=== PATIENT | male | born 1995 | race Caucasian/White ===

== ENCOUNTER 2018-03-16 21:03 | Emergency (ER) | payer MEDICAID, SELFPAY ==
[2018-03-16 21:04] VITALS: BP 112/59; PULSE 91; RESP 16; TEMP 36.4; O2SAT 97; BMI 19.2
[2018-03-16 22:00] VITALS: O2SAT 99
--- NOTE | 2018-03-16 22:20 | ED.VISSUMM ---
- ER Visit Summary Date of Service: 03/16/18 Chief Complaint: Asthma History of Present Illness: The patient is a 22 M with history of asthma who presents for 2 days of worsening asthma symptoms and a sharp left-sided pleuritic chest pain. Patient states he is on Asmanex which is been helping him and uses nebulizer albuterol treatment at home as needed, which she states has not been helping for the last 2 days. He is complaining of a left lateral lower sharp chest pain along with his asthma symptoms. He has mild cough, nonproductive, and wheezing. Denies fever, abdominal pain, nausea or vomiting, rash or other complaints. No history other than asthma. Physical Examination: Vital signs: afebrile, hemodynamically stable, no hypoxia on room air General: well nourished, well developed, in no distress Skin: warm, dry, no rash, no pallor HEENT: normocephalic and atraumatic; PERRL, EOMI, moist mucous membranes Cardiovascular: regular rate and rhythm without murmurs, no peripheral edema, 2+ pulses all distal extremities Respiratory: No increased work of breathing, lungs are clear to auscultation bilaterally, no rales, rhonchi or wheezing appreciated, dry cough noted Abdominal: Abdomen is soft, nontender with normoactive bowel sounds, no guarding or rebound, no masses MSK: Moves all extremities, no deformities, normal strength Neuro: Awake and alert, oriented ?4. No facial droop, sensation and motor function intact and symmetric Test Results: Clinical Impression(s) from Imaging Studies Chest X-Ray 03/16/18 22:40 IMPRESSION: Normal x-ray examination of the chest. Electronically Signed: Kevin Jimenez MD at 23:07 EDT , Service support , Emergency Department Course and Treatment: Patient's lung exam was unimpressive, however he had a dry cough, which may be his asthma equivalent. He was given 1 DuoNeb and stated he felt much better and like he was moving air better. Given that he was complaining of the new pleuritic chest pain, a chest x-ray was performed to rule out pneumonia. It was unremarkable. Patient is to follow-up with his primary care doctor or his behavioral intervention specialist to discuss the functioning of his nebulizer and whether he needs a new one or different treatment system. He agreed with this plan was discharged home feeling much better with his symptoms resolved. Treatment Plan: [] Disposition: [] Impression: Mild asthma exacerbation This note was generated with [employer] dictation software. It may contain incorrect words, spelling, and punctuation that were not noted in review of the chart prior to signing ED Disposition - Plan for ED Patient: Disposition: Home or Assisted Living Chief Complaint: Asthma Instructions: ED Reactive Airway Disease Referrals: Kevin Carcamo MD [Primary Care Provider] - 3-5 Days Additional Instructions: Please continue your asthma treatments as instructed by your doctors. Follow-up with either your primary care doctor or your behavioral intervention specialist to discuss getting a prescription for a new nebulizer machine if you have concerns for the functioning of your current one. If you have any worsening of your condition or any new concerning symptoms, please return immediately to the emergency department for another evaluation.
--- NOTE | 2018-03-16 22:40 | RAD_ITS ---
STUDY: X-RAY CHEST REASON FOR EXAM: Male, 22 years old. Asthma TECHNIQUE: PA and lateral COMPARISON: February 19, 2017 FINDINGS: The lungs are clear and expanded. There is no demonstrated pleural abnormality. Normal size heart. Normal mediastinum and bailee. Normal visualized pulmonary arteries. Normal visualized aortic arch and descending thoracic aorta. Normal visualized thoracic spine. Normal visualized ribs, clavicles, and shoulders. There is no demonstrated abnormality of the visualized soft tissue structures of the upper abdomen. No significant change since prior study RAD/Chest PA and Lateral IMPRESSION: Normal x-ray examination of the chest. Electronically Signed: Kevin Jimenez MD at 23:07 EDT , Service support ,
[2018-03-16] MEDS: Ipratropium/Albuterol Sulfate 3 ML AMPUL.NEB INHALATION (23:07)
[2018-03-16 23:08] VITALS: PULSE 88; RESP 18
--- NOTE | 2018-03-16 23:14 | ED.DEP ---
ED Disposition - Plan for ED Patient: Disposition: Home or Assisted Living Chief Complaint: Asthma Instructions: ED Reactive Airway Disease Referrals: Kevin Carcamo MD [Primary Care Provider] - 3-5 Days Additional Instructions: Please continue your asthma treatments as instructed by your doctors. 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 If you have any worsening of your condition or any new concerning symptoms, please return immediately to the emergency department for another evaluation.
[2018-03-16 23:33] VITALS: BP 99/61; PULSE 69; RESP 18; O2SAT 99
== END 2018-03-16 23:34 | disposition home or self-care (01) ==
PROVIDERS: Emergency Provider Emergency Medicine; Family Provider Family Medicine; PCP Family Medicine
DX: J45.901 Unspecified asthma with (acute) exacerbation (principal); R07.81 Pleurodynia; Z72.0 Tobacco use
CPT/HCPCS: 71046; 94640; 99282

== ENCOUNTER 2018-03-23 23:03 | Emergency (ER) | payer SELFPAY ==
[2018-03-23 23:03] VITALS: BP 140/72; PULSE 86; RESP 16; TEMP 36.8; O2SAT 97; BMI 18.9
--- NOTE | 2018-03-23 23:15 | RAD_ITS ---
STUDY: X-RAY CHEST REASON FOR EXAM: Male, 22 years old. Shortness of breath. Asthma. TECHNIQUE: Single AP portable view of the chest. COMPARISON: March 16, 2018 FINDINGS: The lungs are clear and expanded. There is no demonstrated pleural abnormality. Normal size heart. Normal mediastinum and bailee. Normal visualized pulmonary arteries. Normal visualized aortic arch and descending thoracic aorta. Normal visualized thoracic spine. Normal visualized ribs, clavicles, and shoulders. There is no demonstrated abnormality of the visualized soft tissue structures of the upper abdomen. RAD/Chest 1 View (Portable) IMPRESSION: Normal x-ray examination of the chest. Electronically Signed: Chung Cline MD at 0:45 EDT , Service support ,
--- NOTE | 2018-03-23 23:18 | ED.DCSUM_ITS ---
- ER Visit Summary Date of Service: 03/23/18 Chief Complaint: Shortness of breath History of Present Illness: The patient is a 22 M presenting with shortness of breath times 1 month. Patient states that around Mother's Day he began having trouble with his breathing. He states his nebulizer is broken. He has been using his inhaler. He has an appointment with his primary care physician tomorrow but felt that he should come in tonight to the ED for a breathing treatment. He denies fever. Denies productive cough. He has not had any past hospitalizations for his asthma. No recent steroids. No PE/DVT risk factors. Physical Examination: Vitals are stable. Patient is afebrile. Alert no acute distress. HEENT exam is unremarkable. Neck is supple. Lungs are mild expiratory wheezing bilaterally. Heart is regular rate and rhythm. Abdomen is soft nontender nondistended. Extremities are unremarkable. Skin is warm and dry. No focal neurologic deficit. Remainder of exam is unremarkable. Emergency Department Course and Treatment: Patient is given DuoNeb. Chest x- ray was obtained and shows no acute process. Patient is feeling improved in the emergency department. He has an appointment with his primary care physician tomorrow. He has an inhaler available to him at home. He is advised to return to ED if worsening complaints. Disposition: Discharge home Impression: Asthma This note was generated with [employer] dictation software. It may contain incorrect words, spelling, and punctuation that were not noted in review of the chart prior to signing ED Disposition - Plan for ED Patient: Disposition: Home or Assisted Living Chief Complaint: Asthma Instructions: Understanding Asthma Referrals: Kevin Carcamo MD [Primary Care Provider] -
[2018-03-24] MEDS: Ipratropium/Albuterol Sulfate 3 ML AMPUL.NEB INHALATION (00:06)
--- NOTE | 2018-03-24 01:15 | ED.DEP ---
ED Disposition - Plan for ED Patient: Chief Complaint: Asthma Instructions: Understanding Asthma Referrals: Kevin Carcamo MD [Primary Care Provider] -
--- NOTE | 2018-03-24 10:20 | CM.ED ---
ED CALLBACK: Follow-up call placed to patient. Voicemail left with return contact information. Noted that patient has a previously scheduled appointment with his PCP today.
== END 2018-03-24 01:17 | disposition home or self-care (01) ==
LOC: ED 23:23
PROVIDERS: Emergency Provider Emergency Medicine; Family Provider Family Medicine; PCP Family Medicine
DX: J45.909 Unspecified asthma, uncomplicated (principal); Z72.0 Tobacco use
CPT/HCPCS: 71045; 99282

== ENCOUNTER 2018-05-28 23:06 | Emergency (ER) | payer MEDICAID, SELFPAY ==
[2018-05-28 23:06] VITALS: BP 130/69; PULSE 94; RESP 16; TEMP 36.8; O2SAT 98; BMI 18.5
[2018-05-28] MEDS: Ondansetron 4 MG/2 ML Vial IV (23:42)
[2018-05-28] MEDS: 0.9% Normal Saline 1,000 ML 1000 ML IV (23:42)
[2018-05-28] MEDS: Mag Hydrox/Al Hydrox/Simeth 30 ML UDC PO (23:46)
[2018-05-28 23:50] LABS: Absolute Lymphocyte Count 3.53 X10^3/ul (0.83-4.51); Absolute Neutrophil Count 4.3 X10^3/uL (2.0-7.7); Basophil# 0.02 X10^3/uL; Basophil% 0.2 % (0-1); Eosinophil# 0.04 X10^3/uL; Eosinophils% 0.5 % (0-5); Hemoglobin 15.3 g/dl (13.0-16.5); Lymphocyte # 3.53 X10^3/ul (4.0); Lymphocyte % 41.1 % (19-41); Mean Corpuscular Volume 94.1 fL (80-94); Mean Platelet Vol. 9.8 fl (6.2-12.0); Monocyte# 0.65 X10^3/uL; Monocyte% 7.6 % (0-10); Neutrophil # 4.34 X10^3/uL (2.7-7.7); Neutrophil % 50.6 % (47-70); Platelet Count 192 K/mm3 (150-450); RBC Distribution Width CV 12.6 % (11.6-14.6); RBC Distribution Width SD 43.4 fl (35.1-43.9); Red Blood Count 4.78 M/mm3 (4.6-6.2); White Blood Count 8.6 K/mm3 (4.4-11.0)
[2018-05-28 23:52] LABS: POSITIVE COUNT NO; POSITIVE DIFFERENTIAL NO; POSITIVE MORPHOLOGY NO
[2018-05-29 00:12] LABS: ALB/GLOB Ratio 1.1 RATIO (0.9-2.4); AST(SGOT) 20 U/L (15-37); Alanine Aminotransfer ALT/SGPT 22 U/L (16-61); Albumin, Serum 4.2 g/dL (3.2-5.0); Alkaline Phosphatase 75 U/L (45-117); Anion Gap 10 (5-15); BUN 11 mg/dL (7-18); Chloride 106 mmol/L (98-107); Creatinine, Serum 0.92 mg/dL (0.70-1.30); EST Glomerular Filtration Rate 108 mL/min (>60); Est Glom Filt Rate - Afr Amer 131 mL/min (>60); Estimated Creatinine Clearance 87.27 ml/min; Globulin 3.7 g/dL (2.2-4.2); Glucose 94 mg/dL (74-106); Lipase 94 U/L (73-393); Potassium 3.2 mmol/L (3.5-5.1); Protein, Total 7.9 g/dL (6.4-8.2); Sodium Level 142 mmol/L (136-145)
--- NOTE | 2018-05-29 00:20 | ED.VISSUMM ---
- ER Visit Summary Date of Service: 05/29/18 Chief Complaint: Pain History of Present Illness: The patient is a 22 M with abdominal and chest pain. The pain started yesterday. He drank 2-1/2 tall boys. He had 3 episodes of nonbloody vomiting. He has stopped vomiting but continues to have some substernal pain as well as epigastric pain. Normal bowel movement. No blood or black or tarry stools. No history of esophageal disease or rupture. No history of ulcers or gastric disease. No history of liver or pancreas disease. No fevers. No shortness of breath. No cough. Patient does report feeling paranoid. When I asked him what this means, he says that he is worried that he is having a medical problem and that something might be wrong. He is not feeling like someone is out to get him or to cause harm to him. Physical Examination: Afebrile and vital signs unremarkable. Patient is nontoxic and in no acute distress. Airway intact. HEENT exam unremarkable. Chest nontender. Lungs clear bilaterally. Heart regular rate and rhythm. Negative Jacobs's crunch. Abdomen slightly tender in the right upper quadrant. No guarding or rebound. Skin normal in color without jaundice or pallor. Test Results: EKG showed sinus rhythm at a rate of 83. No sign of acute ischemia or infarction pattern. CBC normal. CMP unremarkable except for a potassium 3.2. Lipase normal. Troponin normal. Chest x-ray normal. Emergency Department Course and Treatment: Patient treated with fluids, Zofran, GI cocktail while awaiting results. Vitals, exam, symptoms remained stable. Patient history, vitals, exam, and workup are reassuring. I do not believe he has esophageal rupture, mediastinitis, cardiac disease, pneumonia, perforated ulcer, hepatitis, pancreatitis, alcoholic ketoacidosis or any other acute or emergent process. Patient likely has irritation, possibly reflux and/or gastritis secondary to alcohol use and tobacco use. I educated him about this. I also discussed complications and reasons to return to the emergency department. I notified him about his potassium of 3.2. This is likely related to vomiting. He will eat a healthy diet. Follow-up with his doctor for recheck of his labs. Return for any new or worsening issues. I did prescribe a course of Pepcid. Treatment Plan: As above Disposition: Discharged Impression: 1. Abdominal pain This note was generated with [employer] dictation software. It may contain incorrect words, spelling, and punctuation that were not noted in review of the chart prior to signing ED Disposition - Plan for ED Patient: Chief Complaint: Chest Other Referrals: Kevin Carcamo MD [Primary Care Provider] -
--- NOTE | 2018-05-29 00:25 | ED.DEP ---
ED Disposition - Plan for ED Patient: Chief Complaint: Chest Other Instructions: Abdominal Pain Prescriptions: Famotidine [Pepcid] 20 mg PO BID #28 tab Referrals: Kevin Carcamo MD [Primary Care Provider] -
[2018-05-29 00:47] VITALS: BP 118/76; PULSE 78; RESP 16; O2SAT 98
== END 2018-05-29 00:48 | disposition home or self-care (01) ==
PROVIDERS: Emergency Provider Emergency Medicine; Family Provider Family Medicine; PCP Family Medicine
DX: R10.13 Epigastric pain (principal); R07.9 Chest pain, unspecified; R11.2 Nausea with vomiting, unspecified; J45.909 Unspecified asthma, uncomplicated; F31.9 Bipolar disorder, unspecified; Z72.0 Tobacco use
CPT/HCPCS: 71045; 80053; 83690; 84484; 85025; 93005; 96361; 96374; 99285; J7030; J2405

== ENCOUNTER 2018-07-12 23:30 | Emergency (ER) | payer MEDICAID, SELFPAY ==
[2018-07-12 23:31] VITALS: BP 113/83; PULSE 101; RESP 16; TEMP 36.7; O2SAT 99; BMI 18.3
[2018-07-13] VITALS: O2SAT 100
--- NOTE | 2018-07-13 01:27 | ED.VISSUMM ---
- ER Visit Summary Date of Service: 07/13/18 Chief Complaint: Dyspnea, wheeze History of Present Illness: The patient is a 23 M 3-day history nonproductive cough with wheezing. History of asthma. Occasional tobacco. Sick contacts at home. No recent travel, surgeries, or immobilizations. No history of PE or DVT. Does have an inhaler at home which helps his symptoms. Nebulizer broken. No fever, sweats. Physical Examination: General: Alert and oriented ?3, no acute distress HEENT: Normocephalic, atraumatic. Moist mucosa membranes Neck: supple, nontender. Cardiovascular: Regular rate 84 and rhythm, no murmurs Respiratory: Normal breath sounds, symmetric, no distress Abdomen: Soft, nontender, nondistended Extremities: Nontender, no edema, pulses intact ?4 Neuro: no focal neurological deficits. Test Results: [] Emergency Department Course and Treatment: Patient no distress. Reported wheezing at home is helping with inhaler. Vitals stable in the ED. Asthma history we will start prednisone for concerns or exacerbation. Discussed upper respiratory illness. Follow-up with PCP. Signs and symptoms discussed return. Treatment Plan: [] Disposition: Discharge Impression: 1. Asthma exacerbation 2. Upper respiratory infection This note was generated with [employer] dictation software. It may contain incorrect words, spelling, and punctuation that were not noted in review of the chart prior to signing ED Disposition - Plan for ED Patient: Disposition: Home or Assisted Living Chief Complaint: Shortness of Breath Diagnosis: Asthma exacerbation, Viral upper respiratory infection Instructions: ED Upper Resp Infec No Abx Tx, Controlling Asthma Triggers: Irritants Prescriptions: Albuterol Sulfate [Proventil Hfa] 6.7 gm IH Q4H PRN PRN #1 [id number] PRN Reason: Wheezing Prednisone 40 mg PO DAILY #8 tablet Referrals: Kevin Carcamo MD [Primary Care Provider] - 3-5 Days
[2018-07-13] MEDS: predniSONE 20 MG Tablet 40 MG PO (01:55)
[2018-07-13 01:56] VITALS: BP 116/68; PULSE 74; RESP 16; O2SAT 100
== END 2018-07-13 01:56 | disposition home or self-care (01) ==
PROVIDERS: Emergency Provider Emergency Medicine; Family Provider Family Medicine; PCP Family Medicine
DX: J45.901 Unspecified asthma with (acute) exacerbation (principal); J06.9 Acute upper respiratory infection, unspecified; Z72.0 Tobacco use; Z79.899 Other long term (current) drug therapy
CPT/HCPCS: 99283

== ENCOUNTER 2018-11-24 17:18 | Emergency (ER) | payer MEDICAID, SELFPAY ==
[2018-11-24 17:18] VITALS: BP 109/68; PULSE 96; RESP 18; TEMP 37.5; O2SAT 99; BMI 16.5
[2018-11-24 19:00] VITALS: PULSE 95; RESP 18; TEMP 37.5; O2SAT 96
[2018-11-24] MEDS: Ipratropium/Albuterol Sulfate 3 ML AMPUL.NEB INHALATION (19:34)
[2018-11-24 19:35] VITALS: PULSE 84; RESP 16
--- NOTE | 2018-11-24 19:45 | RAD_ITS ---
STUDY: X-RAY CHEST REASON FOR EXAM: Male, 23 years old. Shortness of breath TECHNIQUE: PA and lateral COMPARISON: May 28, 2018 FINDINGS: The lungs are clear and expanded. There is no demonstrated pleural abnormality. Normal size heart. Normal mediastinum and bailee. Normal visualized pulmonary arteries. Normal visualized aortic arch and descending thoracic aorta. Normal visualized thoracic spine. Normal visualized ribs, clavicles, and shoulders. There is no demonstrated abnormality of the visualized soft tissue structures of the upper abdomen. No significant change since prior exam RAD/Chest PA and Lateral IMPRESSION: Normal x-ray examination of the chest. Electronically Signed: Kevin Jimenez MD at 20:02 EST , Service support ,
[2018-11-24 19:58] LABS: Absolute Lymphocyte Count 2.95 X10^3/ul (0.83-4.51); Absolute Neutrophil Count 1.9 X10^3/uL (2.0-7.7); Basophil# 0.02 X10^3/uL; Basophil% 0.4 % (0-1); Eosinophil# 0.05 X10^3/uL; Eosinophils% 0.9 % (0-5); Hematocrit 49.1 % (40-54); Hemoglobin 16.7 g/dl (13.0-16.5); Lymphocyte # 2.95 X10^3/ul (4.0); Lymphocyte % 55.6 % (19-41); Mean Corpuscular Hgb 31.7 pg (27.0-32.0); Mean Corpuscular Volume 93.3 fL (80-94); Mean Platelet Vol. 9.7 fl (6.2-12.0); Monocyte# 0.35 X10^3/uL; Monocyte% 6.6 % (0-10); Neutrophil # 1.93 X10^3/uL (2.7-7.7); Neutrophil % 36.3 % (47-70); Platelet Count 182 K/mm3 (150-450); RBC Distribution Width CV 12.4 % (11.6-14.6); RBC Distribution Width SD 41.5 fl (35.1-43.9); Red Blood Count 5.26 M/mm3 (4.6-6.2); White Blood Count 5.3 K/mm3 (4.4-11.0)
[2018-11-24 19:59] LABS: POSITIVE COUNT NO; POSITIVE DIFFERENTIAL NO; POSITIVE MORPHOLOGY NO
[2018-11-24 20:08] LABS: ALB/GLOB Ratio 1.2 RATIO (0.9-2.4); AST(SGOT) 16 U/L (15-37); Alanine Aminotransfer ALT/SGPT 18 U/L (16-61); Albumin, Serum 4.6 g/dL (3.2-5.0); Alkaline Phosphatase 84 U/L (45-117); Anion Gap 6 (5-15); BUN 7 mg/dL (7-18); BUN/Creat Ratio 7.8 RATIO (10-20); Calcium,Total 9.3 mg/dL (8.5-10.1); Chloride 104 mmol/L (98-107); EST Glomerular Filtration Rate 111 mL/min (>60); Est Glom Filt Rate - Afr Amer 135 mL/min (>60); Estimated Creatinine Clearance 83.54 ml/min; Globulin 3.9 g/dL (2.2-4.2); Glucose 92 mg/dL (74-106); Potassium 3.9 mmol/L (3.5-5.1); Protein, Total 8.5 g/dL (6.4-8.2); Sodium Level 137 mmol/L (136-145)
--- NOTE | 2018-11-24 21:24 | ED.VISSUMM ---
- ER Visit Summary Date of Service: 11/24/18 Chief Complaint: Asthma exacerbation History of Present Illness: The patient is a 23 M who presents with exacerbation of his asthma that began 6 days ago and is gradually gotten worse. Patient describes it as a tightness in his chest. Patient states he is having a cough but denies any sputum production. Patient states he is also had a 13 pound weight loss over the past 3 weeks. Patient denies any fevers or chills. Patient denies any chest pain. Patient denies any nausea or vomiting. Patient denies any diaphoresis. Patient denies any other past medical history. Physical Examination: Vital signs are stable. Patient is afebrile. Patient is in no acute distress. Oral mucosa is pink and moist. Neck is supple. Trachea is midline. There is no JVD or lymphadenopathy noted. Heart was regular rate and rhythm. Lungs showed expiratory wheezing. There is good respiratory effort noted. Abdomen is soft nontender. Cranial nerves II through XII are intact. There are no focal motor or sensory deficits noted. The remaining physical exam is within normal limits. Test Results: PA and lateral chest x-ray was obtained. There is no acute cardiopulmonary process noted. CBC and comprehensive metabolic profile were obtained and were all normal. Emergency Department Course and Treatment: Patient was given a DuoNeb aerosol here. Patient felt better on reevaluation. Patient was given a prescription for albuterol nebulizer solution. Patient was instructed to follow-up with his primary care physician in 7-10 days. Patient and family understood and were agreeable with the plan. All questions were answered. Disposition: Discharge home Impression: Asthma exacerbation This note was generated with [employer] dictation software. It may contain incorrect words, spelling, and punctuation that were not noted in review of the chart prior to signing ED Disposition - Plan for ED Patient: Disposition: Home or Assisted Living Diagnosis: Asthma exacerbation Instructions: ED Reactive Airway Disease Prescriptions: Albuterol Aerosols [Ventolin Aerosols] 2.5 mg INHALATION Q4H PRN PRN #25 vial PRN Reason: Wheezing Referrals: Kevin Carcamo MD [Primary Care Provider] -
--- NOTE | 2018-11-24 21:29 | ED.DCSUM_ITS ---
- ER Visit Summary Date of Service: 11/24/18 Chief Complaint: Asthma exacerbation History of Present Illness: The patient is a 23 M who presents with exacerbation of his asthma that began 6 days ago and is gradually gotten worse. Patient describes it as a tightness in his chest. Patient states he is having a cough but denies any sputum production. Patient states he is also had a 13 pound weight loss over the past 3 weeks. Patient denies any fevers or chills. Patient denies any chest pain. Patient denies any nausea or vomiting. Patient denies any diaphoresis. Patient denies any other past medical history. Physical Examination: Vital signs are stable. Patient is afebrile. Patient is in no acute distress. Oral mucosa is pink and moist. Neck is supple. Trachea is midline. There is no JVD or lymphadenopathy noted. Heart was regular rate and rhythm. Lungs showed expiratory wheezing. There is good respiratory effort noted. Abdomen is soft nontender. Cranial nerves II through XII are intact. There are no focal motor or sensory deficits noted. The remaining physical exam is within normal limits. Test Results: PA and lateral chest x-ray was obtained. There is no acute cardiopulmonary process noted. CBC and comprehensive metabolic profile were obtained and were all normal. Emergency Department Course and Treatment: Patient was given a DuoNeb aerosol here. Patient felt better on reevaluation. Patient was given a prescription for albuterol nebulizer solution. Patient was instructed to follow-up with his primary care physician in 7-10 days. Patient and family understood and were ag reeable with the plan. All questions were answered. Disposition: Discharge home Impression: Asthma exacerbation This note was generated with [employer] dictation software. It may contain incorrect words, spelling, and punctuation that were not noted in review of the chart prior to signing ED Disposition - Plan for ED Patient: Disposition: Home or Assisted Living Diagnosis: Asthma exacerbation Instructions: ED Reactive Airway Disease Prescriptions: Albuterol Aerosols [Ventolin Aerosols] 2.5 mg INHALATION Q4H PRN PRN #25 vial PRN Reason: Wheezing Referrals: Kevin Carcamo MD [Primary Care Provider] -
[2018-11-24 21:40] VITALS: BP 112/71; PULSE 76; RESP 18; TEMP 36.9; O2SAT 97
== END 2018-11-24 21:41 | disposition home or self-care (01) ==
PROVIDERS: Emergency Provider Emergency Medicine; Family Provider Family Medicine; PCP Family Medicine
DX: J45.901 Unspecified asthma with (acute) exacerbation (principal); Z72.0 Tobacco use
CPT/HCPCS: 71046; 80053; 85025; 94640; 99283; A4216

== ENCOUNTER 2019-07-12 15:43 | Emergency (ER) | payer MEDICAID, SELFPAY ==
[2019-07-12 15:43] VITALS: BP 107/72; PULSE 98; RESP 16; TEMP 36.9; O2SAT 100; BMI 16.2
--- NOTE | 2019-07-12 16:34 | ED.VIS.GEN ---
History of Present Illness Chief Complaint: Cold Sx Detail of Chief Complaint: Cough and congestion Informant: Patient Onset: Days - 3 days Current Severity: Mild Maximum Severity: Mild Narrative: Patient presents with a 3-day history of cold symptoms. He describes head congestion and drainage on the back of his throat. He has mild cough with brown-colored sputum. He denies shortness of breath or wheezing. He denies fever or chills. He went to urgent care yesterday and was told it was all viral. He is hoping for some medication to help improve his symptoms. Past Medical History - Allergies and Home Meds Allergies/Adverse Reactions: Allergies egg Allergy (Verified 07/12/19 15:45) Rash Penicillins Allergy (Verified 07/12/19 15:45) Rash CATS Allergy (Intermediate, Uncoded 07/12/19 15:45) Inflammation of lung Primary Care Physician: Kevin Carcamo MD [Primary Care Provider] - Prior records reviewed: Yes Past Medical History: - - Reviewed Lives: With Family Smoking Status: Current every day smoker Review of Systems General: Denies: Chills, Fever Eyes: Denies: Visual changes - bilaterally ENT: Reports: Rhinorrhea, Sore throat. Denies: Bilateral ear pain Cardiovascular: Denies: Chest pain Respiratory: Reports: Cough, Sputum. Denies: Dyspnea, Dyspnea on exertion Gastrointestinal: Denies: Abdominal pain, Nausea, Vomiting, Diarrhea Genitourinary: Denies: Dysuria Skin: Denies: Rash Neurological: Denies: Headache Endocrine: Denies: Polyuria, Polydipsia Hematologic: Denies: Easy bruising Allergy: Denies: Uticaria Physical Exam Vital Signs/Narrative: Vital Signs Temp Pulse Resp BP Pulse Ox 07/12/19 15:43 98.4 F 98 16 107/72 100 Inital Vital Signs reviewed: Yes General: Well nourished, Well developed Head: Normocephalic Eyes: Perrl, EOMI ENT: Moist mucous membranes, TM's clear, - - Mild posterior pharyngeal drainage. Neck: Supple Cardiovascular: Regular rate, Regular rhythm Respiratory: No distress, CTA bilaterally Abdomen: Soft, Nontender Extremities: Nontender Skin: Normal color, No rash Neurological: Alert, Oriented x3 Psychological: Normal affect Diagnostic/Tx/Re-eval - Medical Decision Making Advised the patient that I agree his symptoms are viral in nature. He will be given Sudafed, Afrin, and Tessalon Perles. He is given a work note for today. ED Disposition - Plan for ED Patient: Disposition: Home or Assisted Living Diagnosis: Viral URI Instructions: URI, Viral, No Abx (Adult) Prescriptions: Pseudoephedrine HCl [Sudafed] 30 mg PO 4X/DAY PRN PRN #20 tablet PRN Reason: Congestion Benzonatate [Tessalon Perle] 200 mg PO TID PRN PRN #20 capsule PRN Reason: Cough Referrals: Kevin Carcamo MD [Primary Care Provider] - 1 Week if not improving
[2019-07-12] MEDS: Benzonatate 100 MG Capsule PO (17:13)
[2019-07-12] MEDS: Oxymetazoline 0.05% 1 SPRAY SPRAY.BTL 2 SPRAY NASAL (17:13)
== END 2019-07-12 17:26 | disposition home or self-care (01) ==
LOC: ED 17:09
PROVIDERS: Emergency Provider Emergency Medicine; Family Provider Family Medicine; PCP Family Medicine
DX: J06.9 Acute upper respiratory infection, unspecified (principal); Z88.0 Allergy status to penicillin; F17.200 Nicotine dependence, unspecified, uncomplicated; Z79.899 Other long term (current) drug therapy
CPT/HCPCS: 99283

== ENCOUNTER 2019-07-17 16:49 | Emergency (ER) | payer MEDICAID, SELFPAY ==
[2019-07-17 16:52] VITALS: BP 121/72; PULSE 87; RESP 18; TEMP 36.6; O2SAT 97; BMI 16.6
--- NOTE | 2019-07-17 17:08 | RAD_ITS ---
STUDY: X-RAY CHEST REASON FOR EXAM: Male, 24 years old. Cough and shortness of breath TECHNIQUE: PA and lateral views of the chest. COMPARISON: 11/24/2018 FINDINGS: The lungs are clear and expanded. There is no demonstrated pleural abnormality. Normal size heart. Normal mediastinum and bailee. Normal visualized pulmonary arteries. Normal visualized aortic arch and descending thoracic aorta. Normal visualized thoracic spine. Normal visualized ribs, clavicles, and shoulders. There is no demonstrated abnormality of the visualized soft tissue structures of the upper abdomen. RAD/Chest PA and Lateral IMPRESSION: Normal x-ray examination of the chest. Electronically Signed: Chris Whiteside MD at 17:51 EDT , Service support ,
--- NOTE | 2019-07-17 17:09 | ED.VIS.GEN ---
History of Present Illness Chief Complaint: Shortness of Breath Detail of Chief Complaint: Cough and congestion Informant: Patient Onset: Weeks Current Severity: Moderate Maximum Severity: Moderate Narrative: Patient presents with a week and a half history of URI symptoms. He has been seen twice before, once by urgent care and once in the emergency room. He previously had had head congestion but really nothing into his chest. He states now he has congestion in his chest. He has developed some wheezing as well. He has bringing up colored sputum. He states he feels warm, but does not measure a fever. Past Medical History - Allergies and Home Meds Allergies/Adverse Reactions: Allergies egg Allergy (Verified 07/17/19 16:51) Rash Penicillins Allergy (Verified 07/17/19 16:51) Rash CATS Allergy (Intermediate, Uncoded 07/17/19 16:51) Inflammation of lung Primary Care Physician: Kevin Carcamo MD [Primary Care Provider] - 1 Week Prior records reviewed: Yes Past Medical History: - - Reviewed Lives: With Family Smoking Status: Current every day smoker Review of Systems General: Denies: Chills, Fever Eyes: Denies: Visual changes - bilaterally ENT: Reports: - - Congestion. Denies: Bilateral ear pain Cardiovascular: Denies: Chest pain Respiratory: Reports: Cough, Sputum, - - Wheezing Gastrointestinal: Denies: Abdominal pain, Nausea, Vomiting Genitourinary: Denies: Dysuria Musculoskeletal: Denies: Extremity Pain Skin: Denies: Rash Neurological: Denies: Headache Endocrine: Denies: Polyuria, Polydipsia Hematologic: Denies: Easy bruising Allergy: Denies: Uticaria Physical Exam Vital Signs/Narrative: Vital Signs Temp Pulse Resp BP Pulse Ox 07/17/19 16:52 97.8 F 87 18 121/72 H 97 Inital Vital Signs reviewed: Yes General: Well nourished, Well developed ENT: Moist mucous membranes Cardiovascular: Regular rate, Regular rhythm Respiratory: No distress, - - And expiratory wheezes noted. Abdomen: Soft, Nontender Extremities: Nontender Skin: Normal color Neurological: Alert, Oriented x3 Psychological: Normal affect Diagnostic/Tx/Re-eval Impressions Chest X-Ray 07/17/19 17:08 IMPRESSION: Normal x-ray examination of the chest. Electronically Signed: Chris Whiteside MD at 17:51 EDT , Service support , 07/17/19 17:08 Chest PA and Lateral [RAD] Stat - Medical Decision Making Patient was given 40 mg of prednisone and a DuoNeb treatment. On repeat evaluation his wheezing is actually increased. He will be given 2 additional albuterol treatments. He will be written for an albuterol inhaler states that he only has his steroid inhaler currently. He will be treated with a course of Zithromax, first dose given here. ED Disposition - Plan for ED Patient: Disposition: Home or Assisted Living Diagnosis: Bronchitis, Asthma exacerbation Instructions: ASTHMA, Acute (Adult), BRONCHITIS, Antiobiotic Treatment (Adult) Prescriptions: Prednisone 10 mg PO UD #33 tab Prescription Printed Albuterol Inhaler [Ventolin Hfa] 1 - 2 puff INHALATION Q4H PRN PRN #1 inhaler PRN Reason: Wheezing Azithromycin [Zithromax] 250 mg PO DAILY #4 tab Prescription Printed Referrals: Kevin Carcamo MD [Primary Care Provider] - 1 Week
[2019-07-17] MEDS: predniSONE 20 MG Tablet 40 MG PO (17:12)
[2019-07-17 17:22] VITALS: PULSE 92; RESP 20
[2019-07-17] MEDS: Ipratropium/Albuterol Sulfate 3 ML AMPUL.NEB INHALATION (17:22)
[2019-07-17 18:22] VITALS: BP 105/69; PULSE 88; RESP 16; TEMP 36.6; O2SAT 97
[2019-07-17] MEDS: Albuterol 2.5 MG/3 ML VIAL.NEB. INHALATION ×2 (18:39)
[2019-07-17] MEDS: Azithromycin 250 MG Tablet 500 MG PO (18:39)
[2019-07-17 18:42] VITALS: PULSE 101; RESP 18
[2019-07-17 19:24] VITALS: BP 104/57; PULSE 98; RESP 20; O2SAT 95
== END 2019-07-17 19:24 | disposition home or self-care (01) ==
PROVIDERS: Emergency Provider Emergency Medicine; Family Provider Family Medicine; PCP Family Medicine
DX: J45.901 Unspecified asthma with (acute) exacerbation (principal); F17.200 Nicotine dependence, unspecified, uncomplicated; Z88.0 Allergy status to penicillin; Z79.899 Other long term (current) drug therapy
CPT/HCPCS: 71046; 94640; 99283

== ENCOUNTER → 2020-07-24 09:25 | Outpatient (CLI) | payer MEDICAID, SELFPAY | PROVIDERS: Referring Provider Registered Nurse; Visit Provider Registered Nurse | DX: Z20.828 Contact with and (suspected) exposure to other viral communicable diseases (principal) | CPT/HCPCS: 87635; C9803; U0003 ==

== ENCOUNTER 2020-10-18 01:02 | Emergency (ER) | payer MEDICAID, SELFPAY ==
[2020-10-18 01:02] VITALS: BP 122/72; TEMP 36.6; O2SAT 98; BMI 17.4
[2020-10-18 01:06] VITALS: BP 122/72; PULSE 90; RESP 15; TEMP 36.6; O2SAT 98
--- NOTE | 2020-10-18 01:13 | ED.VIS.GEN ---
History of Present Illness Chief Complaint: Abd Pain Informant: Patient Narrative: 25-year-old male presents for evaluation abdominal pain. Symptoms began approximately 1-1/2 hours prior to arrival when he woke from sleep with pain around his umbilicus that was intense and traveled up to his epigastrium. States he has had some diarrhea today. Denies any blood or mucus. Denies really any other symptoms such as fever or urinary symptoms. He is concerned that his pancreas may have ruptured. He asked this because his mother's boyfriend had a surgery on his pancreas and woke with similar symptoms. He wonders if it is hereditary. - Past Medical History (1) Asthma Status: Chronic Past Medical History - Allergies and Home Meds Allergies/Adverse Reactions: Allergies egg Allergy (Verified 10/18/20 01:09) Rash Penicillins Allergy (Verified 10/18/20 01:09) Rash CATS Allergy (Intermediate, Uncoded 10/18/20 01:09) Inflammation of lung Primary Care Physician: Care Physician,No Primary [Primary Care Provider] - Surgical History: noncontributory Smoking Status: Former smoker Drugs: None Review of Systems General: Denies: Chills, Fever, Sweats Eyes: Denies: Visual changes - bilaterally, Diplopia ENT: Denies: Rhinorrhea, Sore throat Cardiovascular: Denies: Chest pain, Palpitations Respiratory: Denies: Dyspnea, Cough, Dyspnea on exertion Gastrointestinal: Reports: Abdominal pain, Diarrhea. Denies: Nausea, Vomiting, Melena, Hematochezia Genitourinary: Denies: Dysuria, Hematuria, Frequency Musculoskeletal: Denies: Back pain, Extremity Pain Skin: Denies: Rash, Wounds Neurological: Denies: Headache, Weakness, Numbness Physical Exam Vital Signs/Narrative: Vital Signs Temp Pulse Resp BP Pulse Ox 10/18/20 01:06 98 F 90 15 122/72 H 98 10/18/20 01:02 98 F 122/72 H 98 Inital Vital Signs reviewed: Yes General: Well nourished, Well developed, No Acute Distress Head: Normocephalic, Atraumatic Eyes: Perrl, EOMI ENT: Moist mucous membranes, No rhinorrhea Neck: Supple, Nontender Cardiovascular: Regular rate, Regular rhythm, No murmurs Respiratory: No distress, CTA bilaterally, Chest nontender Abdomen: Soft, Nondistended, Normal bowel sounds, Tender. Negative for: Guarding, Rebound tenderness Back: Nontender, Normal Inspection Extremities: Nontender, No edema Skin: Normal color, No rash Neurological: Alert, Oriented x3, Cranial nerves II-XII grossly intact, Normal Strength, Normal Sensation Psychological: Normal affect, Normal Mood Diagnostic/Tx/Re-eval Laboratory Last Values WBC 4.5 K/mm3 (4.4-11.0) 10/18/20 01:11 RBC 4.96 M/mm3 (4.6-6.2) 10/18/20 01:11 Hgb 15.6 g/dL (13.0-16.5) 10/18/20 01:11 Hct 46.8 % (40-54) 10/18/20 01:11 MCV 94.4 fL (80-94) H 10/18/20 01:11 MCH 31.5 pg (27.0-32.0) 10/18/20 01:11 MCHC 33.3 g/dL (32-36) 10/18/20 01:11 RDW Std Deviation 42.7 fl (35.1-43.9) 10/18/20 01:11 RDW Coeff of Hortencia 12.2 % (11.6-14.6) 10/18/20 01:11 Plt Count 181 K/mm3 (150-450) 10/18/20 01:11 MPV 9.5 fl (6.2-12.0) 10/18/20 01:11 Immature Gran % (Auto) 0.200 % (0.0-0.9) 10/18/20 01:11 Neut % (Auto) 42.2 % (47-70) L 10/18/20 01:11 Lymph % (Auto) 47.9 % (19-41) H 10/18/20 01:11 Tillman % (Auto) 7.2 % (0-10) 10/18/20 01:11 Eos % (Auto) 1.8 % (0-5) 10/18/20 01:11 Baso % (Auto) 0.7 % (0-1) 10/18/20 01:11 Absolute Neuts (auto) 1.9 X10^3/uL (2.0-7.7) L 10/18/20 01:11 Absolute Lymphs (auto) 2.14 X10^3/uL (0.83-4.51) 10/18/20 01:11 Nucleated RBC % 0 % (0-5) 10/18/20 01:11 Sodium 138 mmol/L (136-145) 10/18/20 01:11 Potassium 3.6 mmol/L (3.5-5.1) 10/18/20 01:11 Chloride 107 mmol/L (98-107) 10/18/20 01:11 Carbon Dioxide 28.0 mmol/L (21.0-32.0) 10/18/20 01:11 Anion Gap 3 (5-15) L 10/18/20 01:11 BUN 5 mg/dL (7-18) L 10/18/20 01:11 Creatinine 0.90 mg/dL (0.70-1.30) 10/18/20 01:11 Estim Creat Clear Calc 86.96 ml/min 10/18/20 01:11 Est GFR (MDRD) Af Amer 132 mL/min (>60) 10/18/20 01:11 Est GFR (MDRD) Non-Af 109 mL/min (>60) 10/18/20 01:11 BUN/Creatinine Ratio 5.6 RATIO (10-20) L 10/18/20 01:11 Glucose 95 mg/dL (74-106) 10/18/20 01:11 Calcium 8.9 mg/dL (8.5-10.1) 10/18/20 01:11 Total Bilirubin 1.30 mg/dL (0.20-1.00) H 10/18/20 01:11 AST 19 U/L (15-37) 10/18/20 01:11 ALT 29 U/L (16-61) 10/18/20 01:11 Alkaline Phosphatase 79 U/L (45-117) 10/18/20 01:11 Total Protein 7.9 g/dL (6.4-8.2) 10/18/20 01:11 Albumin 4.3 g/dL (3.2-5.0) 10/18/20 01:11 Globulin 3.6 g/dL (2.2-4.2) 10/18/20 01:11 Albumin/Globulin Ratio 1.2 RATIO (0.9-2.4) 10/18/20 01:11 Lipase 58 U/L (73-393) L 10/18/20 01:11 - Medical Decision Making Patient's white blood cell count is 4.5 with high lymphocytes. Rest of his labs are fairly unremarkable. Covid test was negative. At this point I think the patient can be discharged home without advanced imaging or further observation. He received a dose of Bentyl here in the emergency department. Would recommend Imodium and continued Bentyl if continued pain and diarrhea. Recommend oral hydration return if worsening or concerns ED Disposition - Plan for ED Patient: Disposition: Home or Assisted Living Diagnosis: Acute abdominal pain, Diarrhea Instructions: ED Diarrhea, Unknown Cause Prescriptions: Dicyclomine HCl [Bentyl] 20 mg PO TIDAC #20 cap Prescription Printed Referrals: Mallory Ward MD [STAFF PHYSICIAN] - 1-2 Days if not improving
[2020-10-18 01:21] LABS: Absolute Lymphocyte Count 2.14 X10^3/uL (0.83-4.51); Absolute Neutrophil Count 1.9 X10^3/uL (2.0-7.7); Basophil# 0.03 X10^3/uL; Basophil% 0.7 % (0-1); Eosinophil# 0.08 X10^3/uL; Eosinophils% 1.8 % (0-5); Hematocrit 46.8 % (40-54); Hemoglobin 15.6 g/dL (13.0-16.5); Lymphocyte # 2.14 X10^3/ul (4.0); Lymphocyte % 47.9 % (19-41); Mean Corp Hgb Conc 33.3 g/dL (32-36); Mean Corpuscular Hgb 31.5 pg (27.0-32.0); Mean Corpuscular Volume 94.4 fL (80-94); Mean Platelet Vol. 9.5 fl (6.2-12.0); Monocyte# 0.32 X10^3/uL; Monocyte% 7.2 % (0-10); NRBC Flagged by Analyzer 0 % (0-5); Neutrophil # 1.89 X10^3/uL (2.7-7.7); Neutrophil % 42.2 % (47-70); Platelet Count 181 K/mm3 (150-450); RBC Distribution Width CV 12.2 % (11.6-14.6); RBC Distribution Width SD 42.7 fl (35.1-43.9); Red Blood Count 4.96 M/mm3 (4.6-6.2); White Blood Count 4.5 K/mm3 (4.4-11.0)
[2020-10-18] MEDS: Dicyclomine 10 MG Capsule 20 MG PO (01:22)
[2020-10-18 01:48] LABS: ALB/GLOB Ratio 1.2 RATIO (0.9-2.4); AST(SGOT) 19 U/L (15-37); Alanine Aminotransfer ALT/SGPT 29 U/L (16-61); Albumin, Serum 4.3 g/dL (3.2-5.0); Alkaline Phosphatase 79 U/L (45-117); Anion Gap 3 (5-15); BUN 5 mg/dL (7-18); BUN/Creat Ratio 5.6 RATIO (10-20); Calcium,Total 8.9 mg/dL (8.5-10.1); Chloride 107 mmol/L (98-107); EST Glomerular Filtration Rate 109 mL/min (>60); Est Glom Filt Rate - Afr Amer 132 mL/min (>60); Estimated Creatinine Clearance 86.96 ml/min; Globulin 3.6 g/dL (2.2-4.2); Glucose 95 mg/dL (74-106); Lipase 58 U/L (73-393); Potassium 3.6 mmol/L (3.5-5.1); Protein, Total 7.9 g/dL (6.4-8.2); Sodium Level 138 mmol/L (136-145)
[2020-10-18 02:41] VITALS: O2SAT 99
== END 2020-10-18 02:42 | disposition home or self-care (01) ==
PROVIDERS: Emergency Provider Emergency Medicine
DX: R10.33 Periumbilical pain (principal); R19.7 Diarrhea, unspecified; J45.909 Unspecified asthma, uncomplicated; Z87.891 Personal history of nicotine dependence
CPT/HCPCS: 80053; 83690; 85025; 87426; 99285; A4216

== ENCOUNTER 2020-10-19 17:49 | Emergency (ER) | payer MEDICAID, SELFPAY ==
[2020-10-18 01:02] VITALS: BMI 17.4
[2020-10-19 17:49] VITALS: BP 113/74; PULSE 101; RESP 17; TEMP 36.1; O2SAT 96; BMI 17.4
--- NOTE | 2020-10-19 18:08 | ED.VIS.GEN ---
History of Present Illness Chief Complaint: Complaint Informant: Patient Narrative: 25-year-old male presenting for difficulty urinating. He states he was able to urinate before he arrived. He states his urine is clear. Patient was seen yesterday and had lab work which indicated that he had no leukocytosis. His renal function was normal. Patient describes diarrhea for a couple of days, but received Bentyl and was doing better as far as abdominal pain until he feels like he has difficulty urinating today. Patient states he was tested for Covid?19 for his diarrhea. He tested negative. He has no fever, cough, chills, myalgias, change in taste or smell. - Past Medical History (1) Asthma Status: Chronic Past Medical History - Allergies and Home Meds Allergies/Adverse Reactions: Allergies egg Allergy (Verified 10/19/20 17:49) Rash Penicillins Allergy (Verified 10/19/20 17:49) Rash CATS Allergy (Intermediate, Uncoded 10/19/20 17:49) Inflammation of lung Primary Care Physician: Care Physician,No Primary [Primary Care Provider] - Prior records reviewed: Yes Past Medical History: - - Reviewed in problem list Surgical History: noncontributory Lives: With Family Smoking Status: Former smoker Alcohol: None Drugs: None Review of Systems General: Denies: Chills, Fever, Sweats Eyes: Denies: Visual changes - bilaterally, Diplopia ENT: Denies: Rhinorrhea, Sore throat Cardiovascular: Denies: Chest pain, Palpitations Respiratory: Denies: Dyspnea, Cough, Dyspnea on exertion Gastrointestinal: Reports: Abdominal pain, Diarrhea, Constipation Genitourinary: Denies: Dysuria, Hematuria, Frequency Musculoskeletal: Denies: Myalgias, Arthralgias Skin: Denies: Rash, Abscess Neurological: Denies: Headache, Parasthesia, Numbness Psych: Denies: Depression, Anxiety Physical Exam Vital Signs/Narrative: Vital Signs Temp Pulse Resp BP Pulse Ox 10/19/20 17:49 97.0 F L 101 H 17 113/74 96 General: Well nourished, No Acute Distress Head: Normocephalic, Atraumatic Eyes: Perrl, EOMI ENT: Moist mucous membranes, No rhinorrhea Cardiovascular: Regular rate, Regular rhythm Respiratory: No distress, CTA bilaterally Abdomen: Soft, Nondistended, Normal bowel sounds Skin: Normal color, No rash. Negative for: Cyanosis, Diaphoresis Neurological: Alert, Oriented x3 Psychological: Normal affect, Normal Mood ED Disposition - Plan for ED Patient: Disposition: Home or Assisted Living Referrals: Care Physician,No Primary [Primary Care Provider] - Additional Instructions: You presented today with difficulty urinating. On your bladder scan today there was left and 15 cc of urine in the bladder. Blood work from yesterday shows that your kidney function is normal. You should increase your fluid intake. If still having difficulty urinating he can return to the ER at any time for reevaluation.
== END 2020-10-19 18:41 | disposition home or self-care (01) ==
PROVIDERS: Emergency Provider Student in an Organized Health Care Education/Training Program
DX: R33.9 Retention of urine, unspecified (principal); Z87.891 Personal history of nicotine dependence
CPT/HCPCS: 99282

== ENCOUNTER 2021-02-20 21:50 | Emergency (ER) | payer MEDICAID, SELFPAY ==
[2021-02-20 21:51] VITALS: BP 120/78; PULSE 102; RESP 16; TEMP 36.6; O2SAT 99; BMI 17.9
--- NOTE | 2021-02-20 22:35 | EX.ED.VIS.UR ---
HPI HPI - URI History of Present Illness Chief Complaint: Sore Throat Informant: patient Onset/Context/Timing Onset: Today Context: Gradual Onset Current Severity: Moderate Maximum Severity: Moderate Worsened by: Swallowing Narrative Narrative: Patient presents to the emergency department sore throat. He states that started this morning. He did all ache in the back of his throat. He states throughout the day, the pain got worse. He denies cough. He denies trouble speaking or swallowing. Is not sure if he has had a fever. He is otherwise been in his normal state of health. ROS ROS ED Constitutional Constitutional ED: Denies chills or fever(s) Eyes Eyes: Denies blurry vision or change in vision ENT ENT ED: Reports sore throat Cardiovascular Cardiovascular: Denies chest pain or palpitations Respiratory/Chest Respiratory/Chest: Denies cough, dyspnea or dyspnea on exertion Gastrointestinal Gastrointestinal: Denies abdominal pain, nausea or vomiting Genitourinary Genitourinary ED: Denies dysuria or urinary frequency Musculoskeletal Musculoskeletal: Denies arthralgias or myalgias Integumentary Denies rash Neurologic Neurologic: Denies headache(s) or paresthesias Psychiatric Psychiatric: Denies anxiety or depression Endocrine Endocrinology: Denies polydipsia or polyuria Allergic/Immunologic Allergic/Immunologic ED: Denies urticaria PFSH PFSH Medical History Asthma Tobacco abuse Home Medications fluticasone propionate 50 mcg/actuation nasal spray,suspension 2 spray INTRANASAL QDAY #1 device 07/21/18 [Rx Last Taken Unknown] albuterol sulfate 2.5 mg INHALATION Q4H PRN PRN #25 vial 11/24/18 [Rx Last Taken Unknown] dicyclomine 20 mg PO TIDAC #20 cap 10/18/20 [Rx Last Taken Unknown] azithromycin 250 mg PO DAILY #4 tablet 02/20/21 [Rx Last Taken Unknown] Allergy/AdvReac Type Severity Reaction Status Date / Time egg Allergy Rash Verified 02/20/21 21:51 Penicillins Allergy Rash Verified 02/20/21 21:51 CATS Allergy Intermediate Inflammation Uncoded 02/20/21 21:51 of lung Family History Father Heart disease Social History Smoking Status: Current every day smoker EXAM Physical Exam Const Vital Signs: 02/20/21 21:51 Temperature 97.8 F Temperature Source Temporal Pulse Rate 102 H Respiratory Rate 16 Blood Pressure 120/78 Blood Pressure Mean 92 Pulse Ox 99 Oxygen Delivery Method Room Air Positive well nourished and well developed General Appearance ED: well developed HEENT Reports normocephalic, head/scalp atraumatic and moist mucous membranes HEENT Narrative: Posterior pharynx does show bilateral tonsillar exudate. Uvula midline. No evidence of retropharyngeal or peritonsillar abscess. Scant anterior adenopathy. Eyes PERRL and EOMs intact bilaterally Neck supple General: Negative for tenderness Chest Wall inspection of chest normal Resp normal respiratory effort and clear to auscultation bilaterally Cardio regular rate, regular rhythm and no murmurs GI normal to inspection, nondistended, normoactive bowel sounds Palpation: Negative for tender, guarding or rebound tenderness present Back/Spine no CVA tenderness Cervical Spine: Negative for cervical spine tenderness Thoracic Spine / Upper Back: Negative for thoracic spinal tenderness Extremity normal to inspection General Extremety ED: Negative for tenderness Neuro oriented x3 and CN's II-XII intact bilaterally Neuro Narrative: No focal deficits appreciated. Sensorium / Orientation: alert Psych mental status grossly normal Skin no rashes or lesions noted, no wounds and skin turgor normal MDM MDM MDM Narrative Medical decision making narrative: Patient presents with sore throat. He does have exudative pharyngitis. He has had no cough. He has no trismus or stridor. There is no evidence of abscess. With his penicillin allergy, I am going to treat him with azithromycin. He is given his first dose of antibiotics here along with Decadron. He will be discharged home. Impression 1. Strep pharyngitis Lab Data Attestation: I reviewed the patient's lab results. Discharge Plan Triage Chief Complaint: Sore Throat ED Provider: Brian Yang Dx/Rx/DC Orders Instructions: ED Pharyngitis, Strep (Confirmed) Prescriptions: New azithromycin [azithromycin] 250 MG tablet 250 mg PO DAILY Qty: 4 RF: 0 No Action fluticasone propionate [Flonase Allergy Relief] 50 mcg/actuation spray,suspension 2 spray Intranasal QDAY Qty: 1 RF: 3 albuterol sulfate 2.5 MG/3 ML solution for nebulization 2.5 mg Inhalation Q4H PRN PRN (Reason: Wheezing) Qty: 25 RF: 0 dicyclomine 10 MG capsule 20 mg PO TIDAC Qty: 20 RF: 0 Primary Care Provider: Care Physician,No Primary Referrals: Care Physician,No Primary [Primary Care Provider] -
[2021-02-20] MEDS: Azithromycin 250 MG Tablet 500 MG PO (22:45)
[2021-02-20] MEDS: dexAMETHasone 10 MG/ML Vial PO.IVFORM (22:45)
== END 2021-02-20 22:49 | disposition home or self-care (01) ==
PROVIDERS: Emergency Provider Emergency Medicine
DX: J02.0 Streptococcal pharyngitis (principal); F17.200 Nicotine dependence, unspecified, uncomplicated
CPT/HCPCS: 99282

== ENCOUNTER 2021-02-22 14:41 | Emergency (ER) | payer MEDICAID, SELFPAY ==
[2021-02-22 14:42] VITALS: BP 111/63; PULSE 96; RESP 16; TEMP 37; O2SAT 95; BMI 17.2
--- NOTE | 2021-02-22 15:38 | EX.ED.DYSGE1 ---
HPI History of Present Illness Chief Complaint: Cold Sx Informant: patient Narrative Narrative: Patient is a 25-year-old male who presents to the emergency department for cough. His initial symptoms started with a sore throat and he was diagnosed with strep throat. He has been on antibiotics over the past 2 days for this. He was concerned because he feels like he started get some congestion in his chest. He is cough has been productive of yellow sputum. He denies any fevers or chills. No body aches. He states that he did have a birthday republican for his kid and he was exposed to a kid with a chest cold. No known Covid exposure. He was concerned that he now has Covid. He does smoke cigarettes. He denies any chest pain or shortness of breath associated with this. No abdominal pain or nausea/vomiting. He feels like his sore throat is improving on the antibiotics. No diarrhea. No rashes or stiff neck. [facility] Medical History (Updated 02/22/21 @ 16:[address] Adelfo Lerner DO) Asthma Tobacco abuse Home Medications fluticasone propionate 50 mcg/actuation nasal spray,suspension 2 spray INTRANASAL QDAY #1 device 07/21/18 [Rx Last Taken Unknown] albuterol sulfate 2.5 mg INHALATION Q4H PRN PRN #25 vial 11/24/18 [Rx Last Taken Unknown] dicyclomine 20 mg PO TIDAC #20 cap 10/18/20 [Rx Last Taken Unknown] azithromycin 250 mg PO DAILY #4 tablet 02/20/21 [Rx Last Taken Unknown] Allergy/AdvReac Type Severity Reaction Status Date / Time egg Allergy Rash Verified 02/22/21 14:41 Penicillins Allergy Rash Verified 02/22/21 14:41 CATS Allergy Intermediate Inflammation Uncoded 02/22/21 14:41 of lung Family History Father Heart disease Social History Smoking Status: Current every day smoker ROS ROS ED Constitutional Constitutional ED: Denies chills or fever(s) Eyes Eyes: Denies change in vision ENT ENT ED: Reports sore throat; Denies epistaxis or rhinorrhea Cardiovascular Cardiovascular: Denies chest pain or palpitations Respiratory/Chest Respiratory/Chest: Reports cough; Denies dyspnea or dyspnea on exertion Gastrointestinal Gastrointestinal: Denies abdominal pain, diarrhea, nausea or vomiting Genitourinary Genitourinary ED: Denies dysuria or urinary frequency Musculoskeletal Musculoskeletal: Denies arthralgias, back pain, myalgias or neck pain Integumentary Denies rash Neurologic Neurologic: Denies dizziness, headache(s) or weakness EXAM Physical Exam Const Vital Signs: 02/22/21 14:42 02/22/21 15:47 Temperature 98.6 F Temperature Source Temporal Pulse Rate 96 Respiratory Rate 16 Respiratory Effort Normal Respiratory Pattern Normal Blood Pressure 111/63 Blood Pressure Mean 79 Pulse Ox 95 Oxygen Delivery Method Room Air Positive well nourished and well developed General Appearance ED: well developed and NAD HEENT Reports normocephalic, head/scalp atraumatic and moist mucous membranes HEENT Narrative: Tonsils are erythematous but no obvious exudates present. No lesions present. Uvula midline. No masses appreciated. Cervical lymphadenopathy present. Eyes PERRL and EOMs intact bilaterally Neck supple and No no meningeal signs General: Negative for tenderness Chest Wall inspection of chest normal Resp normal respiratory effort and clear to auscultation bilaterally Auscultation: Negative for rales, rhonchi or wheezes Cardio regular rate, regular rhythm and no murmurs GI normal to inspection, nondistended, normoactive bowel sounds and non-tender Palpation: soft; Negative for guarding or rebound tenderness present Extremity normal to inspection Neuro oriented x3, moves all extremities and no sensory deficits noted Sensorium / Orientation: alert Motor Exam: strength 5/5 throughout Psych mental status grossly normal Skin no rashes or lesions noted MDM MDM MDM Narrative Medical decision making narrative: Patient presents to the ED for a Covid test. He was diagnosed with strep throat 2 days prior and has been on antibiotics. He has now developed a cough. Upon arrival to the emergency department he is in no acute distress. Vital signs within normal limits. He denies any shortness of breath associated with this. Will do Covid screen. His lung sounds are clear and he is afebrile. I have very low concern for bacterial pneumonia. Covid test came back negative. Recommend symptomatic treatment. He is to follow-up with his PCP. Return precautions reviewed including any shortness of breath, fevers. He is agreeable this plan. Discharged home in stable condition. All questions answered. Discharge Plan Triage Chief Complaint: Cold Sx ED Provider: Adelfo Lerner Dx/Rx/DC Orders Clinical Impression: URI (upper respiratory infection) Instructions: ED URI, Viral, No Abx (Adult) Prescriptions: No Action fluticasone propionate [Flonase Allergy Relief] 50 mcg/actuation spray,suspension 2 spray Intranasal QDAY Qty: 1 RF: 3 albuterol sulfate 2.5 MG/3 ML solution for nebulization 2.5 mg Inhalation Q4H PRN PRN (Reason: Wheezing) Qty: 25 RF: 0 dicyclomine 10 MG capsule 20 mg PO TIDAC Qty: 20 RF: 0 azithromycin [azithromycin] 250 MG tablet 250 mg PO DAILY Qty: 4 RF: 0 Primary Care Provider: Care Physician,No Primary Referrals: Gordon Roberts MD [NON-STAFF] - 1 Week Care Physician,No Primary [Primary Care Provider] - Disposition Disposition: Home, self care Discharge Date/Time: 02/22/21 16:47
== END 2021-02-22 16:47 | disposition home or self-care (01) ==
PROVIDERS: Emergency Provider Emergency Medicine
DX: J06.9 Acute upper respiratory infection, unspecified (principal); F17.210 Nicotine dependence, cigarettes, uncomplicated
CPT/HCPCS: 87426; 99282

== ENCOUNTER 2021-03-05 21:11 | Emergency (ER) | payer MEDICAID, SELFPAY ==
[2021-03-05 21:12] VITALS: BP 119/77; PULSE 113; RESP 18; TEMP 36.4; O2SAT 96; BMI 17.7
--- NOTE | 2021-03-05 21:49 | RAD_ITS ---
STUDY: X-RAY CHEST REASON FOR EXAM: Male, 25 years old. Cough TECHNIQUE: Single frontal view of the chest. COMPARISON: 07/17/2019 FINDINGS: The lungs are clear and expanded. There is no demonstrated pleural abnormality. Normal size heart. Normal mediastinum and bailee. Normal visualized pulmonary arteries. Normal visualized aortic arch and descending thoracic aorta. Mild scoliosis. Normal visualized ribs, clavicles, and shoulders. There is no demonstrated abnormality of the visualized soft tissue structures of the upper abdomen. IMPRESSION: Mild scoliosis No acute disease Electronically Signed: Patricio Longoria MD at 22:19 EDT , Service support , RAD/Chest 1 View (Portable)
[2021-03-05 23:21] VITALS: BP 118/67; PULSE 96; RESP 18; O2SAT 97
--- NOTE | 2021-03-05 23:55 | EDS_ITS ---
HPI HPI - URI History of Present Illness Chief Complaint: Cough Informant: patient Onset/Context/Timing Onset: Weeks (1) Context: Gradual Onset Timing: Continuous Worsened by: - (Nothing) Relieved by: - (Nebulizer) Associated Symptoms Associated Symptoms: Sinus Pressure, Shortness of Breath and Productive Cough (Yellow sputum) Narrative Narrative: Patient presents with a cough that has been persistent over the past week. Patient states he feels like he needs to cough something up but is unable to. Patient states he has been taking his nebulizer with some relief. Patient states he is able to cough up occasional yellow sputum. Patient admits to some pressure over his frontal sinuses. Patient also admits to some shortness of breath. Patient denies any chest pain. Patient denies any nausea or vomiting. Patient denies any myalgias or arthralgias. ROS ROS ED Constitutional Constitutional ED: Denies chills or fever(s) Eyes Eyes: Denies blurry vision or change in vision ENT ENT ED: Denies rhinorrhea or sore throat Cardiovascular Cardiovascular: Denies chest pain or palpitations Respiratory/Chest Respiratory/Chest: Reports cough and dyspnea Gastrointestinal Gastrointestinal: Denies nausea or vomiting Genitourinary Genitourinary ED: Denies dysuria or hematuria Musculoskeletal Musculoskeletal: Denies back pain or neck pain Integumentary Denies abscess or rash Neurologic Neurologic: Denies headache(s) or weakness Allergic/Immunologic Allergic/Immunologic ED: Denies mouth swelling or urticaria [facility] Medical History Asthma Tobacco abuse Home Medications fluticasone propionate 50 mcg/actuation nasal spray,suspension 2 spray INTRANASAL QDAY #1 device 07/21/18 [Rx Last Taken Unknown] albuterol sulfate 2.5 mg INHALATION Q4H PRN PRN #25 vial 11/24/18 [Rx Last Taken Unknown] dicyclomine 20 mg PO TIDAC #20 cap 10/18/20 [Rx Last Taken Unknown] azithromycin 250 mg PO DAILY #4 tablet 02/20/21 [Rx Last Taken Unknown] dextromethorphan-guaifenesin [Mucinex DM] 1 tab PO Q12H PRN #20 tab 03/05/21 [Rx Last Taken Unknown] Allergy/AdvReac Type Severity Reaction Status Date / Time egg Allergy Rash Verified 02/22/21 14:41 Penicillins Allergy Rash Verified 02/22/21 14:41 CATS Allergy Intermediate Inflammation Uncoded 02/22/21 14:41 of lung Family History Father Heart disease Social History Smoking Status: Current every day smoker tobacco type: cigarettes EXAM Physical Exam Const Vital Signs: 03/05/21 21:12 03/05/21 23:21 Temperature 97.6 F L Temperature Source Temporal Pulse Rate 113 H 96 Respiratory Rate 18 18 Blood Pressure 119/77 118/67 Blood Pressure Mean 91 Pulse Ox 96 97 Oxygen Delivery Method Room Air Positive well nourished and well developed General Appearance ED: well developed HEENT Reports moist mucous membranes normocephalic Eyes PERRL Neck supple and no JVD Resp normal respiratory effort and clear to auscultation bilaterally Cardio Rate: regular rate Rhythm: regular rhythm GI non-tender and non-distended Auscultation: normoactive bowel sounds Palpation: soft Neuro oriented x3, CN's II-XII intact bilaterally and no sensory deficits noted Sensorium / Orientation: alert Motor Exam: strength 5/5 throughout Psych mental status grossly normal MDM MDM MDM Narrative Medical decision making narrative: Portable 1 view chest x-ray was obtained. On my interpretation, lung freeman are clear. There is normal cardiac silhouette. Bony thorax is normal. There is no acute process noted. Radiologist also interpreted the x-ray and agrees. COVID-19 rapid antigen was obtained and was negative. Patient was advised of his findings. Patient was advised that this is most likely a viral upper respiratory infection. Patient was given a prescription for Mucinex DM. Patient was instructed to follow-up with his primary care physician in 5 to 7 days. Patient understood and was agreeable with the plan. All questions were answered. Radiography Diagnostic Testing: Radiology Impression Chest X-Ray 03/05/21 21:49 Discharge Plan Triage Chief Complaint: Cough ED Provider: David Lomax Dx/Rx/DC Orders Clinical Impression: URI (upper respiratory infection) Instructions: ED URI, Viral, No Abx (Adult) Prescriptions: New Mucinex DM 30-600 mg tablet extended release 12 hr 1 tab PO Q12H PRN (Reason: cough) Qty: 20 RF: 0 No Action fluticasone propionate [Flonase Allergy Relief] 50 mcg/actuation spray,suspension 2 spray Intranasal QDAY Qty: 1 RF: 3 albuterol sulfate 2.5 MG/3 ML solution for nebulization 2.5 mg Inhalation Q4H PRN PRN (Reason: Wheezing) Qty: 25 RF: 0 dicyclomine 10 MG capsule 20 mg PO TIDAC Qty: 20 RF: 0 azithromycin [azithromycin] 250 MG tablet 250 mg PO DAILY Qty: 4 RF: 0 Primary Care Provider: Care Physician,No Primary Referrals: Gissell Daniel [NON-STAFF] - 5-7 Days Care Physician,No Primary [Primary Care Provider] - Disposition Disposition: Home, self care Discharge Date/Time: 03/05/21 23:22
== END 2021-03-05 23:22 | disposition home or self-care (01) ==
PROVIDERS: Emergency Provider Emergency Medicine
DX: J06.9 Acute upper respiratory infection, unspecified (principal); F17.210 Nicotine dependence, cigarettes, uncomplicated
CPT/HCPCS: 71045; 87426; 99282

== ENCOUNTER 2021-06-21 09:19 | Emergency (ER) | payer MEDICAID, SELFPAY ==
[2021-06-21 09:21] VITALS: BP 125/87; PULSE 118; RESP 16; TEMP 38; O2SAT 97; BMI 18.2
[2021-06-21 09:26] VITALS: O2SAT 97
--- NOTE | 2021-06-21 09:53 | EDS_ITS ---
HPI HPI - URI History of Present Illness Chief Complaint: Cough Informant: patient Onset/Context/Timing Onset: Days (2) Context: Gradual Onset Timing: Continuous Quality: cough, achy Location: legs Current Severity: Moderate Maximum Severity: Moderate Associated Symptoms Associated Symptoms: Positive for Nasal Congestion, Headache, Myalgias and Nonproductive cough; Negative for Sinus Pressure, Nausea, Vomiting, Diarrhea, Shortness of Breath, Chest Pain and Hemoptysis Narrative Narrative: Patient presenting with 2 housemates all of which have the same symptoms for similar period of time, they started getting ill beforehand. He denies any dyspnea. Has not been vaccinated against Covid, no known Covid contacts. ROS ROS ED Constitutional Constitutional ED: Reports body ache(s), chills, fatigue, fever(s) and malaise Eyes Eyes: Denies change in vision or diplopia ENT ENT ED: Reports loss taste/smell, nasal congestion, sore throat and other Details: Sore throat at first day now resolved ; Denies rhinorrhea Cardiovascular Cardiovascular: Denies chest pain or palpitations Respiratory/Chest Respiratory/Chest: Reports cough; Denies dyspnea Gastrointestinal Gastrointestinal: Denies abdominal pain, diarrhea, nausea or vomiting Genitourinary Genitourinary ED: Denies dysuria or hematuria Musculoskeletal Musculoskeletal: Denies back pain or neck pain Integumentary Denies abscess or rash Neurologic Neurologic: Reports headache(s); Denies paresthesias or weakness Psychiatric Psychiatric: Denies anxiety or suicidal thoughts [facility] Medical History (Updated 06/21/21 @ 10:[address] Chung Vallejo MD) Asthma Tobacco abuse Home Medications fluticasone propionate 50 mcg/actuation nasal spray,suspension 2 spray INTRANASAL QDAY #1 device 07/21/18 [Rx Last Taken Unknown] albuterol sulfate 2.5 mg INHALATION Q4H PRN PRN #25 vial 11/24/18 [Rx Last Taken Unknown] dicyclomine 20 mg PO TIDAC #20 cap 10/18/20 [Rx Last Taken Unknown] azithromycin 250 mg PO DAILY #4 tablet 02/20/21 [Rx Last Taken Unknown] dextromethorphan-guaifenesin [Mucinex DM] 1 tab PO Q12H PRN #20 tab 03/05/21 [Rx Last Taken Unknown] Allergy/AdvReac Type Severity Reaction Status Date / Time egg Allergy Rash Verified 06/21/21 09:23 Penicillins Allergy Rash Verified 06/21/21 09:23 CATS Allergy Intermediate Inflammation Uncoded 06/21/21 09:23 of lung Family History Father Heart disease Social History Smoking Status: Current every day smoker tobacco type: cigarettes EXAM Physical Exam Const Vital Signs: 06/21/21 09:21 06/21/21 09:26 Temperature 100.4 F H Temperature Source Temporal Pulse Rate 118 H Respiratory Rate 16 Respiratory Effort Normal Non-Labored Respiratory Depth Normal Respiratory Pattern Normal Blood Pressure 125/87 H Blood Pressure Mean 99 Pulse Ox 97 Oxygen Delivery Method Room Air Room Air Positive well nourished and well developed General Appearance ED: well developed and NAD HEENT Reports moist mucous membranes normocephalic and atraumatic Eyes PERRL and EOMs intact bilaterally Neck full ROM, no lymphadenopathy and supple Resp normal respiratory effort and clear to auscultation bilaterally Cardio regular rate, regular rhythm and no murmurs Rate: Negative for tachycardic GI non-tender and non-distended Auscultation: normoactive bowel sounds Palpation: soft Back/Spine no CVA tenderness General Back: other FROM Extremity normal to inspection, no calf tenderness and no pedal edema General Extremety ED: Negative for edema, pulses abnormal or tenderness General Extremity: Negative for edema or pulses abnormal Neuro oriented x3, CN's II-XII intact bilaterally and no sensory deficits noted Sensorium / Orientation: awake and alert Motor Exam: strength 5/5 throughout Skin no rashes or lesions noted and no wounds MDM MDM MDM Narrative Medical decision making narrative: Rapid Covid positive. Given ibuprofen for symptoms and fever. His entire household has Covid and all tested positive. Given appropriate discharge instructions and reasons to return, oxygenation is excellent and he is clinically and hemodynamically stable. Lab Data Attestation: I reviewed the patient's lab results. Discharge Plan Triage Chief Complaint: Cough ED Provider: Chung Vallejo Dx/Rx/DC Orders Clinical Impression: COVID-19 Instructions: Coronavirus Disease 2019 (COVID-19): Caring for Yourself or Others Prescriptions: No Action fluticasone propionate [Flonase Allergy Relief] 50 mcg/actuation spray,suspension 2 spray Intranasal QDAY Qty: 1 RF: 3 albuterol sulfate 2.5 MG/3 ML solution for nebulization 2.5 mg Inhalation Q4H PRN PRN (Reason: Wheezing) Qty: 25 RF: 0 dicyclomine 10 MG capsule 20 mg PO TIDAC Qty: 20 RF: 0 azithromycin [azithromycin] 250 MG tablet 250 mg PO DAILY Qty: 4 RF: 0 Mucinex DM 30-600 mg tablet extended release 12 hr 1 tab PO Q12H PRN (Reason: cough) Qty: 20 RF: 0 Primary Care Provider: Kevin Carcamo Referrals: Kevin Carcamo MD [Primary Care Provider] - Activity Restrictions/Additional Instructions: Try to get a home portable pulse oximeter and closely watch her oxygen levels periodically. If you stay below 90% for more than a minute or so, and/or you are feeling like your breathing is getting worse, return to the emergency department for further evaluation. Disposition Disposition: Home, Self Care
[2021-06-21] MEDS: Ibuprofen 600 MG Tablet PO (10:11)
[2021-06-21 10:39] VITALS: PULSE 71; RESP 22; O2SAT 96
--- NOTE | 2021-06-21 10:40 | ED.RN ---
THIS NURSE REVIEWED D/C INSTRUCTIONS WITH PT. PT VERBALIZED UNDERSTANDING OF INSTRUCTIONS. PT DENIES FURTHER NEEDS OR QUESTIONS AT THIS TIME.
== END 2021-06-21 10:41 | disposition home or self-care (01) ==
PROVIDERS: Emergency Provider Emergency Medicine; PCP Family Medicine
DX: U07.1 COVID-19 (principal); F17.210 Nicotine dependence, cigarettes, uncomplicated
CPT/HCPCS: 87426; 99283

== ENCOUNTER 2021-09-11 20:45 | Emergency (ER) | payer MEDICAID, SELFPAY ==
[2021-09-11 20:46] VITALS: BP 135/71; PULSE 116; RESP 18; TEMP 36.2; O2SAT 98; BMI 18.7
--- NOTE | 2021-09-12 01:28 | EDS_ITS ---
HPI History of Present Illness Chief Complaint: Cold Sx Informant: patient Onset/Context/Timing Onset: Days (4 days) Context: Gradual Onset Current Severity: Mild Maximum Severity: Mild Narrative Narrative: Patient presents secondary to sore throat and congestion. He states Wednesday evening after getting off work he felt a congested type sensation in his throat. He continued to have sore throat this week. He has very mild cough. No fever or chills. He had Covid in June of this year. He does report a history of asthma but denies any wheezing or difficulty breathing with this illness. [facility] Medical History Asthma Tobacco abuse no medical history Home Medications NK 09/11/21 [History Last Taken Unknown] Allergy/AdvReac Type Severity Reaction Status Date / Time egg Allergy Rash Verified 09/11/21 23:44 Penicillins Allergy Rash Verified 09/11/21 23:44 CATS Allergy Intermediate Inflammation Uncoded 09/11/21 23:44 of lung Family History Father Heart disease Social History Smoking Status: Current every day smoker tobacco type: cigarettes ROS ROS ED Constitutional Constitutional ED: Denies chills or fever(s) Eyes Eyes: Denies change in vision ENT ENT ED: Reports sore throat and other Details: Congestion Cardiovascular Cardiovascular: Denies chest pain Respiratory/Chest Respiratory/Chest: Reports cough; Denies dyspnea Gastrointestinal Gastrointestinal: Denies abdominal pain, diarrhea, nausea or vomiting Musculoskeletal Musculoskeletal: Denies back pain or neck pain Integumentary Denies rash Neurologic Neurologic: Denies headache(s) Allergic/Immunologic Allergic/Immunologic ED: Denies urticaria EXAM Physical Exam Const Vital Signs: 09/11/21 20:46 Temperature 97.2 F L Temperature Source Oral Pulse Rate 116 H Respiratory Rate 18 Blood Pressure 135/71 H Blood Pressure Mean 92 Pulse Ox 98 Oxygen Delivery Method Room Air Positive well nourished and well developed General Appearance ED: well developed HEENT Reports TM's clear and moist mucous membranes HEENT Narrative: 2+ tonsils with mild erythema. Uvula midline. No exudate. Tympanic Membrane ED: Yes TM's clear Eyes PERRL and EOMs intact bilaterally Neck no lymphadenopathy and supple Chest Wall inspection of chest normal and palpation of chest normal Resp normal respiratory effort and clear to auscultation bilaterally Cardio regular rate and regular rhythm Extremity normal to inspection Neuro oriented x3 Sensorium / Orientation: alert Skin no rashes or lesions noted MDM MDM MDM Narrative Medical decision making narrative: Rapid Covid test and rapid strep sent. Treatment and Re-Evaluation Comments:: Get it. Test results discussed with the patient. Given work note. Supportive care discussed. Discharge Plan Triage Chief Complaint: Cold Sx ED Provider: Denise De La Garza Dx/Rx/DC Orders Clinical Impression: Viral URI Instructions: ED Pharyngitis, Viral, ED URI, Viral, No Abx (Adult) Prescriptions: No Action NK RF: 0 Stand Alone Forms: ED Work / School Excuse Primary Care Provider: Kevin Carcamo Referrals: Kevin Carcamo MD [Primary Care Provider] - 1 Week if not improving Disposition Disposition: Home, Self Care Discharge Date/Time: 09/12/21 01:34
== END 2021-09-12 01:34 | disposition home or self-care (01) ==
PROVIDERS: Emergency Provider Emergency Medicine; PCP Family Medicine
DX: J02.8 Acute pharyngitis due to other specified organisms (principal); F17.210 Nicotine dependence, cigarettes, uncomplicated; Z86.16 Personal history of COVID-19
CPT/HCPCS: 87426; 87880; 99282

== ENCOUNTER 2023-05-30 10:45 | Emergency (ER) | payer MEDICAID, SELFPAY ==
[2023-05-30 10:46] VITALS: BP 133/78; PULSE 67; RESP 16; TEMP 36.3; O2SAT 99; BMI 16.1
--- NOTE | 2023-05-30 10:53 | RAD_ITS ---
INDICATION: chest pain -- -- sudden onset CP this morning EXAMINATION/TECHNIQUE: X-RAY - XR Chest 1 View COMPARISON: 03/05/2021. FINDINGS: LINES/DEVICES: None. LUNGS: No consolidation, edema or effusion. No pneumothorax. MEDIASTINUM AND CARDIOVASCULAR STRUCTURES: Cardiac silhouette not enlarged. Central airways and mediastinal contour are unremarkable. BONES AND SOFT TISSUES: Unremarkable. RAD/Chest 1 View (Portable) IMPRESSION: No radiographic evidence of acute cardiopulmonary disease. Electronically Signed: Ross Camilo MD at 11:27 EDT ,
--- NOTE | 2023-05-30 10:53 | EKG12_ITS ---
Test Reason : Blood Pressure : / mmHG Vent. Rate : 065 BPM Atrial Rate : 065 BPM P-R Int : 124 ms QRS Dur : 072 ms QT Int : 384 ms P-R-T Axes : 074 082 058 degrees QTc Int : 399 ms Normal sinus rhythm Possible Left atrial enlargement Borderline ECG When compared with ECG of 28-MAY-2018 23:23, No significant change was found Confirmed by ADY ESCALERA, KIZZY ([id number]), senior editor BASHIR MAIN ([id number]) on 07/09/2023 11:25:01 AM Referred By: Confirmed By:NORMA GARSIA MD
--- NOTE | 2023-05-30 10:54 | ED.VIS.CHEST ---
HPI History of Present Illness Chief Complaint: Chest Pain Narrative Narrative: 27-year-old male past medical history of asthma presents with midsternal chest pain and pressure that began approximately 5 hours ago. He states he works third shift and was coming home from work when he started feeling this pressure sensation that is nonradiating. He denies any fevers or chills, no cough, no shortness of breath. However, he does state that he began shaking when he arrived here because he is cold. He denies any DVT or PE risk factors, no leg swelling, no coronary artery disease risk factors except for smoking. He denies any exacerbating or alleviating factors to his central chest pressure. He thinks it may have gone away, however but returned and perhaps moved a little further down his chest. CVD Risk Factors: Positive for Smoking [facility] Medical History (Updated 05/30/23 @ 13:53 by Hossein Weber MD) Asthma Tobacco abuse Home Medications albuterol 90 mcg/actuation aerosol inhaler mcg inhalation Q4H PRN PRN SOB 05/30/23 [History Last Taken Unknown] Allergy/AdvReac Type Severity Reaction Status Date / Time cat dander [cats] Allergy Intermediate Inflammation Verified 05/30/23 10:47 of lung egg Allergy Rash Verified 05/30/23 10:47 Penicillins Allergy Rash Verified 05/30/23 10:47 Family History Father Heart disease Social History Smoking Status: Current every day smoker tobacco type: cigarettes ROS ROS ED ROS Narrative Constitutional: No fever, no chills. Shaking because feels cold and emergency department. HEENT: No sore throat. No neck pain. No loss of vision. No rhinorrhea. Cardiovascular: Midsternal chest pressure/chest pain. No palpitations. No pedal edema. Respiratory: No cough, no shortness of breath. Abdominal: No abdominal pain. No nausea. No vomiting. Genitourinary: No dysuria. No hematuria. Musculoskeletal: No myalgias. No arthralgias. Neurologic: No headaches. No dizziness. No lightheadedness. Skin: No rash. No change in color. Psychiatric: No depression. No anxiety. EXAM Physical Exam Narrative Exam Narrative: Afebrile. Vital signs noted. HEENT: Normocephalic. Atraumatic. PERRL, EOMI. Neck soft and supple. No point tenderness or step off. Cardiovascular: Regular rate and rhythm. No murmurs, rubs, or gallops appreciated. Respiratory: No tachypnea. Lungs clear to auscultation bilaterally. Gastrointestinal: Abdomen soft, nontender, with normoactive bowel sounds. No rebound or guarding. Neurological: Awake. Alert. Nonfocal, nonlateralizing. Trembling on examination. Skin: No rash. Normal color. No pallor. Musculoskeletal: No pedal edema. Full range of motion extremities. Const Vital Signs: 05/30/23 10:46 05/30/23 12:07 05/30/23 12:08 Temperature 97.3 F L Temperature Source Temporal Pulse Rate 67 Respiratory Rate 16 Respiratory Effort Normal Non-Labored Blood Pressure 133/78 H Blood Pressure Mean 96 Pulse Ox 99 99 Oxygen Delivery Method Room Air Room Air MDM MDM MDM Narrative Medical decision making narrative: I reviewed the patient's prior records. In the differential diagnosis is MD/ischemic chest pain versus pneumonia versus pneumothorax. I have low suspicion for aortic dissection as he has no evidence of tearing sensation or pain in his back. His blood pressure is also appropriate in the ED. I also have low concern for pulmonary embolism as he is PERC negative with a pulse of 67 and a pulse ox of 99% on room air without evidence of hypoxia. Also in the differential would be GERD type symptoms versus esophageal spasm. Chest pain work-up will be pursued. He was administered aspirin. EKG was obtained and interpreted by myself independently as normal sinus rhythm at 65 bpm without ectopy or acute ST changes. No STEMI. I reviewed his laboratory work from today and he has a normal white count of 7.1, hemoglobin normal at 15.5, hematocrit normal at 46.2, normal platelet count of 190. BMP is grossly unremarkable with glucose normal at 101, BUN of 7, creatinine normal at 0.89. Initial high-sensitivity troponin is less than 3. Chest x-ray interpreted by myself and 1 view shows no evidence of acute process, no pneumothorax, no consolidation. I reviewed the radiology report which confirms my independent interpretation. On repeat examination at around 12:15 PM, he is resting comfortably and no longer shivering or tremoring. I feel that as he has a normal second troponin that he can be discharged to follow-up with his primary care physician. He stated that he was feeling improved and not having chest pain. Check of his second troponin, 2-hour, shows that less than 3 as well. At this point in time, I do feel that he can be discharged safely home with follow-up and that he does not require observation. He may be having GERD type symptoms and was told that he should start [id number] medications as needed. He will follow-up with his primary care provider. He was given a note to be off work today at his request. Return instructions to the emergency department were reviewed. Disposition is discharged home in stable condition. History & Record Review Discussion w/independent historian: Patient Additional record(s) reviewed:: Prior ED visit and Prior labs Lab Data Attestation: I reviewed the patient's lab results. Labs: Laboratory Results - last 24 hr 05/30/23 05/30/23 11:05 13:04 WBC 7.1 RBC 4.94 Hgb 15.5 Hct 46.2 MCV 93.5 MCH 31.4 MCHC 33.5 RDW Std Deviation 43.7 RDW Coeff of Hortencia 12.6 Plt Count 190 MPV 9.6 Immature Gran % (Auto) 0.100 Neut % (Auto) 40.1 L Lymph % (Auto) 49.6 H [place] % (Auto) 8.4 Eos % (Auto) 1.1 Baso % (Auto) 0.7 Absolute Neuts (auto) 2.8 Absolute Lymphs (auto) 3.50 Nucleated RBC % 0 Sodium 140 Potassium 4.0 Chloride 105 Carbon Dioxide 29.0 Anion Gap 6 BUN 7 Creatinine 0.89 Estim Creat Clear Calc 80.07 Est GFR (MDRD) Af Amer 131 Est GFR (MDRD) Non-Af 108 BUN/Creatinine Ratio 7.8 L Glucose 101 Calcium 9.2 Troponin I High Sens < 3 L < 3 L Radiography Diagnostic Testing: Clinical Impression(s) from Imaging Studies Chest X-Ray 05/30/23 10:53 IMPRESSION: No radiographic evidence of acute cardiopulmonary disease. Electronically Signed: Ross Camilo MD at 11:27 EDT , Discharge Plan Triage Chief Complaint: Chest Pain ED Provider: Hossein Weber Dx/Rx/DC Orders Clinical Impression: Chest pain, Asthma Instructions: ED Chest Pain, Uncertain Cause Prescriptions: No Action albuterol 90 mcg/actuation aerosol inhalation Q4H PRN PRN (Reason: SOB) Stand Alone Forms: Work / School Excuse Primary Care Provider: Kevin Carcamo Referrals: Kevin Carcamo MD [Primary Care Provider] - 3-5 Days Disposition Disposition: Home, Self Care
[2023-05-30] MEDS: Aspirin 81 MG TAB.CHEW 324 MG PO (11:06)
[2023-05-30 11:15] LABS: Absolute Neutrophil Count 2.8 X10^3/uL (2.0-7.7); Basophil# 0.05 X10^3/uL; Basophil% 0.7 % (0-1); Eosinophil# 0.08 X10^3/uL; Eosinophils% 1.1 % (0-5); Hematocrit 46.2 % (40-54); Hemoglobin 15.5 g/dL (13.0-16.5); Lymphocyte % 49.6 % (19-41); Mean Corp Hgb Conc 33.5 g/dL (32-36); Mean Corpuscular Hgb 31.4 pg (27.0-32.0); Mean Corpuscular Volume 93.5 fL (80-94); Mean Platelet Vol. 9.6 fl (6.2-12.0); Monocyte# 0.59 X10^3/uL; Monocyte% 8.4 % (0-10); NRBC Flagged by Analyzer 0 % (0-5); Neutrophil # 2.82 X10^3/uL (2.7-7.7); Neutrophil % 40.1 % (47-70); Platelet Count 190 K/mm3 (150-450); RBC Distribution Width CV 12.6 % (11.6-14.6); RBC Distribution Width SD 43.7 fl (35.1-43.9); Red Blood Count 4.94 M/mm3 (4.6-6.2); White Blood Count 7.1 K/mm3 (4.4-11.0)
[2023-05-30 11:32] LABS: Anion Gap 6 (5-15); BUN 7 mg/dL (7-18); BUN/Creat Ratio 7.8 RATIO (10-20); Calcium,Total 9.2 mg/dL (8.5-10.1); Chloride 105 mmol/L (98-107); Creatinine, Serum 0.89 mg/dL (0.70-1.30); EST Glomerular Filtration Rate 108 mL/min (>60); Est Glom Filt Rate - Afr Amer 131 mL/min (>60); Estimated Creatinine Clearance 80.07 ml/min; Glucose 101 mg/dL (74-106); Sodium Level 140 mmol/L (136-145); Troponin-I HS (w/2H Reflex) < 3 pg/mL (3.0-78.0)
[2023-05-30 12:07] VITALS: O2SAT 99
[2023-05-30 13:00] VITALS: RESP 18
[2023-05-30 13:09] LABS: Reflex Troponin-HS? (from REC) Y
[2023-05-30 13:30] LABS: Troponin-I HS < 3 pg/mL (3.0-78.0)
== END 2023-05-30 14:03 | disposition home or self-care (01) ==
PROVIDERS: Emergency Provider Emergency Medicine; PCP Family Medicine; Visit Provider Emergency Medicine
DX: R07.9 Chest pain, unspecified (principal); J45.909 Unspecified asthma, uncomplicated; F17.210 Nicotine dependence, cigarettes, uncomplicated
CPT/HCPCS: 71045; 80048; 84484; 85025; 93005; 99285; A4216

== ENCOUNTER 2023-08-14 17:46 | Emergency (ER) | payer OTHER, MEDICAID, SELFPAY ==
[2023-08-14 17:46] VITALS: BP 137/78; PULSE 87; RESP 16; TEMP 36.2; O2SAT 100; BMI 16.1
--- NOTE | 2023-08-14 18:52 | EX.ED.DYSGE1 ---
HPI History of Present Illness Chief Complaint: Abd Pain Informant: patient Narrative Narrative: Patient presents with mild abdominal cramping and some soft stools. Patient states this has been going on today. He thinks he ate something bad. He does not have nausea vomiting or fevers. He does note that he slipped on the steps about 2 or 3 days ago. This was 3 steps. He landed on his back and slid down 1. But he states it does not hurt there. His stomach did not hurt afterwards. He has had no blood in his stool. No blood in the urine. Patient then tells me that the real reason he is here is that he did not go to work today because he was not feeling well and he needs a note so he does not get in trouble. He states he really does not want a work-up. He just does not want to lose the job. [facility] Medical History (Updated 08/14/23 @ 18:[address] Deng Palmer MD) Asthma Tobacco abuse Home Medications albuterol 90 mcg/actuation aerosol inhaler mcg inhalation Q4H PRN PRN SOB 05/30/23 [History Last Taken Unknown] ondansetron 4 mg disintegrating tablet 4 mg PO Q8H PRN PRN Nausea #10 tabs 08/14/23 [Rx Last Taken Unknown] Allergy/AdvReac Type Severity Reaction Status Date / Time cat dander [cats] Allergy Intermediate Inflammation Verified 08/14/23 17:48 of lung egg Allergy Rash Verified 08/14/23 17:48 Penicillins Allergy Rash Verified 08/14/23 17:48 Family History Father Heart disease Social History Smoking Status: Current every day smoker tobacco type: cigarettes ROS ROS ED ROS Narrative A complete review of systems was performed and is negative except as documented in the history of present illness. Some specific details below. Constitutional: No recent fevers or chills. EYE: No visual complaints or pain. ENT: No difficulty swallowing. No swelling. No pain. CV: No chest pain or palpitations. Respiratory: No dyspnea. No hemoptysis. No difficulty taking breaths. GI: Please see history of present illness. : No frequency dysuria or hematuria. Musculoskeletal: No recent trauma. No pains. Skin: No rash. Nondiaphoretic. Neuro: No weakness or numbness. Endocrine: No polyuria or polydipsia. EXAM Physical Exam Narrative Exam Narrative: CONSTITUTIONAL: Patient is nontoxic in appearance. The patient looks comfortable. HEENT: No notable trauma. Mucous membranes moist. No sinus tenderness. No indication of pain with swallowing. EYES: No conjunctival injection. No proptosis. CARDIOVASCULAR: Regular rate. Regular rhythm. No notable murmur. No JVD. RESPIRATORY: No respiratory distress. Breathing is unlabored. No wheezes. No rhonchi. No rales. No pain with a deep breath. GASTROINTESTINAL: Not distended. Bowel sounds are normal. No tenderness. No guarding. No rebound. No palpable mass. No bruit. Overall abdomen is very benign. It is thin and completely nontender with normal bowel sounds. GENITOURINARY: No tenderness over the bladder. No CVA tenderness. MUSCULOSKELETAL: Atraumatic. No peripheral edema. No cord. No tenderness along the deep venous system. No asymmetry. NEUROLOGICAL: Patient is alert and appropriate. No focal deficit noted. SKIN: No noted rashes. No diaphoresis. PSYCHIATRIC: Patient is calm. Mood is appropriate. Const Vital Signs: 08/14/23 17:46 Temperature 97.2 F L Temperature Source Temporal Pulse Rate 87 Respiratory Rate 16 Blood Pressure 137/78 H Blood Pressure Mean 97 Pulse Ox 100 Oxygen Delivery Method Room Air MDM MDM MDM Narrative Medical decision making narrative: Patient's history is consistent with mild GI upset. He has some intermittent cramping with soft stools but no nausea vomiting fevers or chills and his abdomen is benign. He does not want a work-up and I do think that is reasonable. I will write him off of work for recovery as he may have a viral illness. I explained I will write him for some Zofran in case that develops but he does not need to fill it as he is not nauseated now. Discharge Plan Triage Chief Complaint: Abd Pain Other Complaint: Back ED Provider: Deng Palmer Dx/Rx/DC Orders Clinical Impression: Abdominal cramping, Diarrhea Instructions: ED Abdominal Pain Unkn Cause Male... Prescriptions: New ondansetron [ondansetron] 4 mg tablet,disintegrating 4 mg PO Q8H PRN PRN (Reason: Nausea) Qty: 10 0RF No Action albuterol 90 mcg/actuation aerosol inhalation Q4H PRN PRN (Reason: SOB) Stand Alone Forms: ED Work / School Excuse Primary Care Provider: Kevin Carcamo Referrals: Kevin Carcamo MD [Primary Care Provider] - 3-5 Days if not improving Disposition Disposition: Home, Self Care
== END 2023-08-14 19:04 | disposition home or self-care (01) ==
LOC: ED 19:03
PROVIDERS: Emergency Provider Emergency Medicine; PCP Family Medicine; Visit Provider Emergency Medicine
DX: R10.9 Unspecified abdominal pain (principal); R19.7 Diarrhea, unspecified; F17.210 Nicotine dependence, cigarettes, uncomplicated
CPT/HCPCS: 99283

== ENCOUNTER 2023-09-06 14:52 | Emergency (ER) | payer OTHER, MEDICAID, SELFPAY ==
[2023-09-06 14:52] VITALS: BP 100/50; PULSE 123; RESP 18; TEMP 37.3; O2SAT 96; BMI 16.0
[2023-09-06 16:13] VITALS: BP 100/50; PULSE 123; RESP 18; TEMP 37.3; O2SAT 96
--- NOTE | 2023-09-06 16:18 | EX.ED.DYSGE1 ---
HPI History of Present Illness Chief Complaint: General Illness Informant: patient and parent Narrative Narrative: Patient presents with myalgias fever and just not feeling well. Patient states that yesterday he felt fine. Today he woke up and he has myalgias. He has a slight headache. He has a slight cough but is not short of breath. He mostly has muscle aches all over. He states he has been hot and cold and chilled. He has not checked his temperature but assumed he has had a fever. He states he has no appetite but not really nauseated. He has not had vomiting diarrhea or abdominal pain. No urinary symptoms. Patient is ending a prescription for clindamycin but this is for dental infection. He states that was getting better. He is going to have all his teeth pulled soon. He does not know if he has had any exposure to ill people. Patient looks thin to me. When I asked he states he has been losing weight because his teeth are so bad he has trouble eating. But other than that he is able to eat fine. [facility] Medical History (Updated 09/06/23 @ 18:[address] Deng Palmer MD) Asthma Tobacco abuse Home Medications albuterol 90 mcg/actuation aerosol inhaler mcg inhalation Q4H PRN PRN SOB 05/30/23 [History Last Taken Unknown] ondansetron 4 mg disintegrating tablet 4 mg PO Q8H PRN PRN Nausea #10 tabs 08/14/23 [Rx Last Taken Unknown] Allergy/AdvReac Type Severity Reaction Status Date / Time cat dander [cats] Allergy Intermediate Inflammation Verified 08/14/23 17:48 of lung egg Allergy Rash Verified 08/14/23 17:48 Penicillins Allergy Rash Verified 08/14/23 17:48 Family History Father Heart disease Social History Smoking Status: Current every day smoker tobacco type: cigarettes ROS ROS ED ROS Narrative A complete review of systems was performed and is negative except as documented in the history of present illness. Some specific details below. Constitutional: Had subjective fevers chills. He has myalgias. See history of present illness. EYE: No discharge, visual complaints, or pain. ENT: No difficulty swallowing. No swelling. No pain. No reflux symptoms. His teeth are actually doing better. CV: Chest pain or palpitations. Respiratory: Patient with cough but no sputum production and no dyspnea. GI: No abdominal pain. No nausea vomiting diarrhea. No blood in stool. Appetite is down though. : No frequency dysuria or hematuria. Musculoskeletal: No recent trauma. Have diffuse myalgias but no swollen joints or specifically painful areas. Skin: No rash. Nondiaphoretic. Neuro: No weakness or numbness. Endocrine: No polyuria or polydipsia. EXAM Physical Exam Narrative Exam Narrative: CONSTITUTIONAL: Patient is nontoxic in appearance. He does look quite thin and likely from his weight loss. His mouth looks dry. He looks like he does not feel well but is not toxic. HEENT: No notable trauma. Mucous membranes quite dry. No sinus tenderness. No indication of pain with swallowing. His teeth especially in the upper ones have erosions down to the gums. He has diffuse gum erythema. But no drainable abscess. He states this is actually better than it was 10 days ago when he started the antibiotics. NECK: No meningismus. No lymphadenopathy. No stridor. EYES: No conjunctival injection. No proptosis. No icterus noted. NECK:No JVD. No stridor. CARDIOVASCULAR: Tachycardic rate. Regular rhythm. No notable murmur. No JVD. RESPIRATORY: No respiratory distress. Breathing is unlabored. No wheezes. No rhonchi. No rales. No pain with a deep breath. No chest wall tenderness. Saturations are normal at 96% on room air showing no hypoxia GASTROINTESTINAL: Not distended. Bowel sounds are normal. No tenderness. No guarding. No rebound. No palpable mass. No bruit is heard. GENITOURINARY: No tenderness over the bladder. No CVA tenderness. MUSCULOSKELETAL: Atraumatic. No peripheral edema. No cord. No tenderness along the deep venous system. No asymmetry. No distended veins. No petechiae purpura NEUROLOGICAL: Patient is alert and appropriate. No focal deficit noted. SKIN: No noted rashes. No diaphoresis. PSYCHIATRIC: Patient is calm. Mood is appropriate. Const Vital Signs: 09/06/23 14:52 09/06/23 16:11 09/06/23 16:13 Temperature 99.2 F H 99.2 F H Temperature Source Temporal Temporal Pulse Rate 123 H 123 H Respiratory Rate 18 18 Respiratory Effort Normal Respiratory Pattern Normal Blood Pressure 100/50 L 100/50 L Blood Pressure Mean 66 66 Pulse Ox 96 96 Oxygen Delivery Method Room Air Room Air 09/06/23 17:55 Temperature 98.2 F Temperature Source Temporal Pulse Rate 111 H Respiratory Rate 23 H Respiratory Effort Respiratory Pattern Blood Pressure 92/44 L Blood Pressure Mean 60 Pulse Ox 95 Oxygen Delivery Method Room Air MDM MDM MDM Narrative Medical decision making narrative: My independent interpretation of the patient's chest x-ray shows no acute process final reading is similar. Patient CBC is overall normal. Patient's electrolytes are overall normal. Patient's influenza is negative. Patient's COVID screen is positive. Patient's heart rate is down from 120s down to about 97. He does feel better. Saturations are good. I discussed this with him. We discussed the possibility of Paxlovid but mutually agreed not to. I explained that he needs to eat and drink Tylenol for fevers and this should resolve itself. Family his girlfriend has similar symptoms now and so he is going to contact her about avoiding work. Lab Data Attestation: I reviewed the patient's lab results. Labs: Laboratory Results - last 24 hr 09/06/23 16:28 WBC 4.8 RBC 4.54 L Hgb 14.0 Hct 41.8 MCV 92.1 MCH 30.8 MCHC 33.5 RDW Std Deviation 43.7 RDW Coeff of Hortencia 12.9 Plt Count 163 MPV 9.7 Immature Gran % (Auto) 0.200 Neut % (Auto) 81.9 H Lymph % (Auto) 5.4 L [place] % (Auto) 11.9 H Eos % (Auto) 0.2 Baso % (Auto) 0.4 Absolute Neuts (auto) 3.9 Absolute Lymphs (auto) 0.26 L Nucleated RBC % 0 Differential Comment SEE COMMENT Platelet Estimate ADEQUATE RBC Morphology N CHROM Anisocytosis RARE Macrocytosis RARE Sodium 136 Potassium 3.9 Chloride 103 Carbon Dioxide 26.0 Anion Gap 7 BUN 6 L Creatinine 0.84 Estim Creat Clear Calc 83.33 Est GFR (MDRD) Af Amer 139 Est GFR (MDRD) Non-Af 115 BUN/Creatinine Ratio 7.1 L Glucose 96 Calcium 9.0 Radiography Diagnostic Testing: Clinical Impression(s) from Imaging Studies Chest X-Ray 09/06/23 16:40 IMPRESSION: Normal x-ray examination of the chest. Electronically Signed: Robi Arauz MD at 17:05 EST , EKG Initial EKG: Comments: My independent interpretation of the patient's EKG done for tachycardia shows sinus rhythm with tachycardic rate at 118. This test diffuse nonspecific changes. No sign of infarct or ischemia. ND interval, QRS duration and QTc are normal Discharge Plan Triage Chief Complaint: General Illness ED Provider: Deng Palmer Dx/Rx/DC Orders Clinical Impression: COVID-19 Instructions: Coronavirus Disease 2019 (COVID-19): Caring for Yourself or Others Prescriptions: No Action albuterol 90 mcg/actuation aerosol inhalation Q4H PRN PRN (Reason: SOB) ondansetron [ondansetron] 4 mg tablet,disintegrating 4 mg PO Q8H PRN PRN (Reason: Nausea) Qty: 10 0RF Stand Alone Forms: ED Work / School Excuse Primary Care Provider: Care Physician,No Primary Referrals: Melyssa Garner MD [Med Staff - Space Scheduler] - 3-5 Days if not improving Care Physician,No Primary [Primary Care Provider] - Disposition Disposition: Home, Self Care
[2023-09-06] MEDS: 0.9% Normal Saline (1000mL) 2,000 ML 1000 ML IV (16:31)
[2023-09-06] MEDS: Acetaminophen 500 MG Tablet 1000 MG PO (16:31)
[2023-09-06] MEDS: Ondansetron 4 MG/2 ML Vial IV (16:32)
--- NOTE | 2023-09-06 16:40 | RAD_ITS ---
STUDY: X-RAY CHEST REASON FOR EXAM: Male, 28 years old. cough TECHNIQUE: Frontal and lateral views of the chest. COMPARISON: 05/30/2023. FINDINGS: The lungs are clear and expanded. There is no demonstrated pleural abnormality. Normal size heart. Normal mediastinum and bailee. Normal visualized pulmonary arteries. Normal visualized aortic arch and descending thoracic aorta. Normal visualized thoracic spine. Normal visualized ribs, clavicles, and shoulders. There is no demonstrated abnormality of the visualized soft tissue structures of the upper abdomen. RAD/Chest PA and Lateral IMPRESSION: Normal x-ray examination of the chest. Electronically Signed: Robi Arauz MD at 17:05 EST ,
[2023-09-06 16:43] LABS: Absolute Lymphocyte Count 0.26 X10^3/uL (0.83-4.51); Absolute Neutrophil Count 3.9 X10^3/uL (2.0-7.7); Basophil# 0.02 X10^3/uL; Basophil% 0.4 % (0-1); Eosinophil# 0.01 X10^3/uL; Eosinophils% 0.2 % (0-5); Hematocrit 41.8 % (40-54); Lymphocyte # 0.26 X10^3/ul (0.83-4.51); Lymphocyte % 5.4 % (19-41); Mean Corp Hgb Conc 33.5 g/dL (32-36); Mean Corpuscular Hgb 30.8 pg (27.0-32.0); Mean Corpuscular Volume 92.1 fL (80-94); Mean Platelet Vol. 9.7 fl (6.2-12.0); Monocyte# 0.57 X10^3/uL; Monocyte% 11.9 % (0-10); NRBC Flagged by Analyzer 0 % (0-5); Neutrophil # 3.92 X10^3/uL (2.7-7.7); Neutrophil % 81.9 % (47-70); POSITIVE DIFFERENTIAL YES; Platelet Count 163 K/mm3 (150-450); RBC Distribution Width CV 12.9 % (11.6-14.6); RBC Distribution Width SD 43.7 fl (35.1-43.9); Red Blood Count 4.54 M/mm3 (4.6-6.2); White Blood Count 4.8 K/mm3 (4.4-11.0)
[2023-09-06 16:50] LABS: Anion Gap 7 (5-15); BUN 6 mg/dL (7-18); BUN/Creat Ratio 7.1 RATIO (10-20); Chloride 103 mmol/L (98-107); Creatinine, Serum 0.84 mg/dL (0.70-1.30); EST Glomerular Filtration Rate 115 mL/min (>60); Est Glom Filt Rate - Afr Amer 139 mL/min (>60); Estimated Creatinine Clearance 83.33 ml/min; Glucose 96 mg/dL (74-106); Potassium 3.9 mmol/L (3.5-5.1); Sodium Level 136 mmol/L (136-145)
[2023-09-06] MEDS: DiphenhydrAMINE 50 MG/ML Syringe 25 MG IV (16:50)
[2023-09-06 17:09] LABS: Differential Indicated SCAN CRITERIA MET
[2023-09-06 17:11] LABS: Anisocytosis RARE; Macrocytosis RARE; Platelet Estimate ADEQUATE (ADEQ); Red Cell Morphology N CHROM NORMAL (NORM C&C)
[2023-09-06 17:55] VITALS: BP 92/44; PULSE 111; RESP 23; TEMP 36.8; O2SAT 95
[2023-09-06 19:48] VITALS: BP 94/53; PULSE 100; RESP 20; O2SAT 98
== END 2023-09-06 19:50 | disposition home or self-care (01) ==
PROVIDERS: Emergency Provider Emergency Medicine; Visit Provider Emergency Medicine
DX: U07.1 COVID-19 (principal); F17.210 Nicotine dependence, cigarettes, uncomplicated
CPT/HCPCS: 71046; 80048; 85025; 87428; 93005; 96361; 96374; 96375; 99284; A4216; J2405

== ENCOUNTER 2024-01-10 19:50 | Emergency (ER) | payer OTHER, MEDICAID, SELFPAY ==
[2024-01-10 19:51] VITALS: BP 114/85; PULSE 86; PULSE 94; RESP 15; RESP 16; TEMP 36.2; O2SAT 10; O2SAT 100; BMI 16.2
[2024-01-10 19:57] VITALS: O2SAT 99
[2024-01-10] MEDS: Albuterol Sulfate 8 gm Inhaler (60 puffs) 2 PUFF INHALATION (21:57)
[2024-01-10 22:00] VITALS: BP 119/78; PULSE 78; RESP 16; TEMP 36.1; O2SAT 100
--- NOTE | 2024-01-10 22:54 | ED.VIS.DYS ---
HPI History of Present Illness Chief Complaint: Asthma Narrative Narrative: 28-year-old male with history of asthma presenting for albuterol refill. He states he does not feel wheezy but he feels tight. He denies any chest pain. He does not appear to be dyspneic. He has not had any fevers or chills. No nausea or vomiting. Patient states that he usually goes to urgent care for refills like this but states he sometimes comes to the emergency room. Patient states his all his medications are out of date and his albuterol is . [facility] Medical History Asthma Tobacco abuse Home Medications albuterol 90 mcg/actuation aerosol inhaler mcg inhalation Q4H PRN PRN SOB 05/30/23 [History Last Taken Unknown] ondansetron 4 mg disintegrating tablet 4 mg PO Q8H PRN PRN Nausea #10 tabs 08/14/23 [Rx Last Taken Unknown] Allergy/AdvReac Type Severity Reaction Status Date / Time cat dander [cats] Allergy Intermediate Inflammation Verified 01/10/24 19:53 of lung egg Allergy Rash Verified 01/10/24 19:53 Penicillins Allergy Rash Verified 01/10/24 19:53 Family History Father Heart disease Social History Smoking Status: Current every day smoker tobacco type: cigarettes ROS ROS ED Constitutional Constitutional ED: Denies chills, fever(s) or sweats Eyes Eyes: Denies blurry vision or change in vision ENT ENT ED: Denies ear pain or sore throat Cardiovascular Cardiovascular: Denies chest pain, palpitations or racing heartbeat Respiratory/Chest Respiratory/Chest: Reports dyspnea; Denies cough or sputum Gastrointestinal Gastrointestinal: Denies abdominal pain, constipation, diarrhea, nausea or vomiting Genitourinary Genitourinary ED: Denies dysuria, hematuria or urinary frequency Musculoskeletal Musculoskeletal: Denies arthralgias, myalgias or neck pain Integumentary Denies abscess, Abrasions or rash Neurologic Neurologic: Denies headache(s), paresthesias or weakness Psychiatric Psychiatric: Denies anxiety, depression, suicidal ideation or suicidal thoughts Endocrine Endocrinology: Denies polydipsia or polyuria EXAM Physical Exam Const Vital Signs: 01/10/24 19:51 01/10/24 19:51 01/10/24 19:57 Temperature 97.2 F L 97.2 F L Temperature Source Temporal Temporal Pulse Rate 86 94 Respiratory Rate 15 16 Respiratory Effort Normal Non-Labored Respiratory Depth Normal Respiratory Pattern Normal Blood Pressure 114/85 H 114/85 H Blood Pressure Mean 94 94 Pulse Ox 10 100 Oxygen Delivery Method Room Air Room Air Room Air 01/10/24 22:00 Temperature 97 F L Temperature Source Pulse Rate 78 Respiratory Rate 16 Respiratory Effort Respiratory Depth Respiratory Pattern Blood Pressure 119/78 Blood Pressure Mean 91 Pulse Ox 100 Oxygen Delivery Method Positive well nourished General Appearance ED: NAD; Negative for pallor Eyes PERRL and EOMs intact bilaterally Neck no lymphadenopathy Resp normal respiratory effort Auscultation: Negative for rales, rhonchi or wheezes Cardio regular rate and regular rhythm GI non-tender Neuro oriented x3 and CN's II-XII intact bilaterally Sensorium / Orientation: alert Psych mental status grossly normal Skin no wounds General Skin Exam: Negative for jaundice or pallor MDM MDM MDM Narrative Medical decision making narrative: Patient presenting for albuterol refill. He states he feels tight but is not wheezing on exam and he agrees he does not feel like he is wheezing. He has not been ill or had any viral symptoms. I do not believe he needs any prednisone. Vital signs are stable and he is afebrile. He is 100% on room air. He was given an albuterol here in the ER and discharged home. Return precautions were discussed. Impression: 1. Medication refill Lab Data Attestation: I reviewed the patient's lab results. Discharge Plan Triage Chief Complaint: Asthma ED Provider: Samson Ruvalcaba Dx/Rx/DC Orders Instructions: ED Asthma, Acute (Adult) Prescriptions: No Action albuterol 90 mcg/actuation aerosol inhalation Q4H PRN PRN (Reason: SOB) ondansetron [ondansetron] 4 mg tablet,disintegrating 4 mg PO Q8H PRN PRN (Reason: Nausea) Qty: 10 0RF Primary Care Provider: Care Physician,No Primary Referrals: Care Physician,No Primary [Primary Care Provider] - Disposition Disposition: Home, Self Care Discharge Date/Time: 01/10/24 22:03
== END 2024-01-10 22:03 | disposition home or self-care (01) ==
PROVIDERS: Emergency Provider Student in an Organized Health Care Education/Training Program; Visit Provider Student in an Organized Health Care Education/Training Program
DX: Z76.0 Encounter for issue of repeat prescription (principal); J45.909 Unspecified asthma, uncomplicated; F17.210 Nicotine dependence, cigarettes, uncomplicated
CPT/HCPCS: 94640; 99282

== ENCOUNTER 2024-02-19 10:22 | Emergency (ER) | payer OTHER, MEDICAID, SELFPAY ==
[2024-02-19 10:23] VITALS: BP 116/81; PULSE 83; RESP 14; TEMP 36.1; O2SAT 99
--- NOTE | 2024-02-19 10:48 | EX.ED.DYSGE1 ---
HPI History of Present Illness Chief Complaint: Allergic Reaction Informant: patient and family Narrative Narrative: 28-year-old male presenting to the emergency room with burning of his gums and tongue. Patient states that he recently used a new toothpaste (crest whitening). After using it he had some discomfort of his tongue and his gums. Today he tried [employer] Enamel. This caused significant more burning of his tongue and his gums. He began to drink a lot of fluids and trying to get a hold of his dentist. They advised to come to [facility] if he had concerns. He states his symptoms have resolved after using/drinking a lot of water. He is adentulous. He denies any difficulty swallowing. No tongue swelling or facial swelling. Patient notes a history of asthma, allergies, and eczema. [facility] Medical History (Updated 02/19/24 @ 10:[address] Jalil Gomez DO) Tobacco abuse Asthma Home Medications ?Medication ?Instructions ?Recorded ?Last Taken ?Type albuterol 90 mcg/actuation aerosol mcg inhalation Q4H PRN PRN SOB 05/30/23 Unknown History inhaler ondansetron 4 mg disintegrating 4 mg PO Q8H PRN PRN Nausea #10 tabs 08/14/23 Unknown Rx tablet Allergy/AdvReac Type Severity Reaction Status Date / Time cat dander (cats) Allergy Intermediate Inflammation Verified 02/19/24 10:23 of lung egg Allergy Rash Verified 02/19/24 10:23 Penicillins Allergy Rash Verified 02/19/24 10:23 Family History Father Heart disease Social History Smoking Status: Current every day smoker tobacco type: cigarettes ROS ROS ED Constitutional Constitutional ED: Denies chills or weight loss Eyes Eyes: Denies change in vision or diplopia ENT ENT ED: Reports other Details: See history of present illness ; Denies ear pain, rhinorrhea or sore throat Cardiovascular Cardiovascular: Denies chest pain, orthopnea, palpitations or racing heartbeat Respiratory/Chest Respiratory/Chest: Denies cough, dyspnea or orthopnea Gastrointestinal Gastrointestinal: Denies abdominal pain, diarrhea, nausea or vomiting Genitourinary Genitourinary ED: Denies dysuria, hematuria or urinary frequency Musculoskeletal Musculoskeletal: Denies arthralgias or myalgias Integumentary Denies abscess or rash Neurologic Neurologic: Denies headache(s) or weakness Psychiatric Psychiatric: Denies anxiety, depression, suicidal ideation or suicidal thoughts Endocrine Endocrinology: Denies polydipsia, polyphagia or polyuria Allergic/Immunologic Allergic/Immunologic ED: Denies mouth swelling, tongue swelling or urticaria EXAM Physical Exam Const Vital Signs: 02/19/24 10:23 Temperature 97 F L Temperature Source Temporal Pulse Rate 83 Respiratory Rate 14 Blood Pressure 116/81 H Blood Pressure Mean 92 Pulse Ox 99 Oxygen Delivery Method Room Air Positive well nourished and well developed General Appearance ED: well developed HEENT Reports normocephalic, head/scalp atraumatic and moist mucous membranes HEENT Narrative: No teeth present. No tongue swelling. No uvula swelling. There is no trismus. No difficulty swallowing. No stridor. Eyes PERRL and EOMs intact bilaterally Neck no lymphadenopathy, supple and no JVD Resp normal respiratory effort and clear to auscultation bilaterally Cardio regular rate, regular rhythm and no murmurs GI normal to inspection, nondistended, normoactive bowel sounds and non-tender Palpation: soft Back/Spine no CVA tenderness and normal ROM Extremity normal to inspection General Extremety ED: Negative for edema General Extremity: Negative for edema Neuro oriented x3 and CN's II-XII intact bilaterally Sensorium / Orientation: alert Motor Exam: strength 5/5 throughout Psych mental status grossly normal Mood & Affect: Negative for depressed or tearful Skin no rashes or lesions noted and no wounds MDM MDM MDM Narrative Medical decision making narrative: Patient is currently asymptomatic. Advised him to look at the toothpaste write down the main ingredients. He should try to choose a toothpaste without those ingredients. He may need to speak with his dentist during business hours as they may have a better recommendation. I am not seeing a need at this time for any antihistamines or steroids. History & Record Review Discussion w/independent historian: Patient and Family Discharge Plan Triage Chief Complaint: Allergic Reaction ED Provider: Jalil Gomez Dx/Rx/DC Orders Clinical Impression: Allergic reaction Instructions: ED Allergic Reaction Local Other Prescriptions: No Action albuterol 90 mcg/actuation aerosol inhalation Q4H PRN PRN (Reason: SOB) ondansetron [ondansetron] 4 mg tablet,disintegrating 4 mg PO Q8H PRN PRN (Reason: Nausea) Qty: 10 0RF Primary Care Provider: Care Physician,No Primary Referrals: Care Physician,No Primary [Primary Care Provider] - Print Language: [place]an Disposition Disposition: Home, Self Care
[2024-02-19 11:08] VITALS: BP 112/74; PULSE 72; RESP 18; TEMP 36.1; O2SAT 99
== END 2024-02-19 11:12 | disposition home or self-care (01) ==
LOC: ED 11:02
PROVIDERS: Emergency Provider Emergency Medicine; Visit Provider Emergency Medicine
DX: T78.40XA Allergy, unspecified, initial encounter (principal); F17.210 Nicotine dependence, cigarettes, uncomplicated; J45.909 Unspecified asthma, uncomplicated; X58.XXXA Exposure to other specified factors, initial encounter
CPT/HCPCS: 99282

== ENCOUNTER 2024-03-19 11:01 | Emergency (ER) | payer MEDICAID, SELFPAY ==
[2024-03-19 11:02] VITALS: BP 132/72; PULSE 88; RESP 16; TEMP 36.4; O2SAT 97; BMI 17.4
--- NOTE | 2024-03-19 11:10 | EX.ED.DYSGE1 ---
HPI <PHILIPPE Dubois - Last Filed: 03/19/24 11:20> History of Present Illness Chief Complaint: Rash Narrative Narrative: 28-year-old male has a red itchy bumps that developed on the back of his neck and left lower leg this morning. He states his 9-year-old daughter recently had a poison sumac rash and they were in close proximity. He denies fever, chills, blistering or drainage from the rash. PFSH <PHILIPPE Dubois - Last Filed: 03/19/24 11:20> [facility] Medical History (Updated 03/19/24 @ 11:17 by PHILIPPE Dubois) Tobacco abuse Asthma Home Medications ?Medication ?Instructions ?Recorded ?Last Taken ?Type albuterol 90 mcg/actuation aerosol mcg inhalation Q4H PRN PRN SOB 05/30/23 Unknown History inhaler ondansetron 4 mg disintegrating 4 mg PO Q8H PRN PRN Nausea #10 tabs 08/14/23 Unknown Rx tablet permethrin 5 % topical cream 1 applic topical Q14D 2 doses #60 03/19/24 Unknown Rx (Elimite) grams Allergy/AdvReac Type Severity Reaction Status Date / Time cat dander (cats) Allergy Intermediate Inflammation Verified 03/19/24 11:02 of lung egg Allergy Rash Verified 03/19/24 11:02 Penicillins Allergy Rash Verified 03/19/24 11:02 Family History Father Heart disease Social History Smoking Status: Current every day smoker tobacco type: cigarettes ROS <PHILIPPE Dubois - Last Filed: 03/19/24 11:20> ROS ED ROS Narrative Constitutional: Negative for fever, chills, malaise. Respiratory: Negative for shortness of breath. GI: Negative for nausea, vomiting. Skin: Positive for rash. EXAM <PHILIPPE Dubois - Last Filed: 03/19/24 11:20> Physical Exam Narrative Exam Narrative: CONST: Patient sitting in no acute distress. EYES: Normal inspection. ENT: No mucosal lesions, moist mucous membranes. NECK: Normal inspection. RESP: No respiratory distress, CTAB. CVS: Regular rate and rhythm, no murmur, no gallop. SKIN: Few scattered red bumps on posterior neck, both wrists and left medial calf. No surrounding erythema, warmth, no blistering or skin sloughing, no fluctuance or crepitus. EXTREMITIES: Normal appearance, no pedal edema. NEURO: Alert and answering questions appropriately. PSYCH: Normal affect. Const Vital Signs: 03/19/24 11:02 Temperature 97.6 F L Temperature Source Temporal Pulse Rate 88 Respiratory Rate 16 Blood Pressure 132/72 H Blood Pressure Mean 92 Pulse Ox 97 Oxygen Delivery Method Room Air <Dr. Vicki Patel DO - Last Filed: 03/19/24 15:55> Physical Exam Const Vital Signs: 03/19/24 11:02 Temperature 97.6 F L Temperature Source Temporal Pulse Rate 88 Respiratory Rate 16 Blood Pressure 132/72 H Blood Pressure Mean 92 Pulse Ox 97 Oxygen Delivery Method Room Air MDM <PHILIPPE Dubois - Last Filed: 03/19/24 11:20> [facility] Narrative Medical decision making narrative: Patient has scattered pruritic erythematous bumps on his neck, wrist, left leg. He reports recent exposure to his daughter who had poison sumac but also was concerned his dad could have bedbugs. He is concerned for scabies as well. Does not necessarily look consistent with a plant contact dermatitis. Will treat with permethrin cream to cover scabies and recommended he have an candy counter clerk evaluate. He can take Benadryl as needed for itching. He was discharged in stable condition. I have personally performed a face to face assessment of the patient and have reviewed the NURYS Note. I performed a substantive portion of the visit including all aspects of the following. My jackson findings include: History is [patient presents with a rash that has had for about 2 days. Patient concerned about poison sumac or possible scabies. He denies exposures to scabies and has not been sleeping anywhere different but then mentions that his dad has bedbugs that he has noticed. Patient states the rash is itchy. His daughter recently had poison sumac. Denies fevers chills or sweats. Denies any medications.] Exam is [HEENT-PERRLA, EOMI. Cranial nerves II through XII grossly intact. TMs clear. Mucous membranes moist. No adenopathy. Cardiovascular-regular rate and rhythm without murmur or ectopy Lungs-clear to auscultation, chest wall stable without crepitus or subcu emphysema Abdomen-normoactive bowel sounds, soft, nontender, no rebound or rigidity, no peritoneal signs. Skin exam-patient has a fine erythematous rash involving the left ankle as well as bilateral wrist and the dorsum of the left hand. Some excoriation noted in different stages of healing. No vesicles or purpura or petechiae noted. Extremities-intact ?4, normal range of motion, normal pulses, atraumatic] Medical Decison Making [patient presents with 2-day history of rash. Rash is not typical of a Hoa dermatitis. Suspect more likely scabies versus bedbugs. Will treat with Elimite cream. Also advised that he should contact an candy counter clerk if he is concerned about bedbugs. He can use Benadryl for the itching.] Other additions or changes: [None] <Dr. Vicki Patel, DO - Last Filed: 03/19/24 15:55> [facility] Narrative Medical decision making narrative: Patient has scattered pruritic erythematous bumps on the back of his neck and left leg. I have personally performed a face to face assessment of the patient and have reviewed the NURYS Note. I performed a substantive portion of the visit including all aspects of the following. My jackson findings include: History is [patient presents with a rash that has had for about 2 days. Patient concerned about poison sumac or possible scabies. He denies exposures to scabies and has not been sleeping anywhere different but then mentions that his dad has bedbugs that he has noticed. Patient states the rash is itchy. His daughter recently had poison sumac. Denies fevers chills or sweats. Denies any medications.] Exam is [HEENT-PERRLA, EOMI. Cranial nerves II through XII grossly intact. TMs clear. Mucous membranes moist. No adenopathy. Cardiovascular-regular rate and rhythm without murmur or ectopy Lungs-clear to auscultation, chest wall stable without crepitus or subcu emphysema Abdomen-normoactive bowel sounds, soft, nontender, no rebound or rigidity, no peritoneal signs. Skin exam-patient has a fine erythematous rash involving the left ankle as well as bilateral wrist and the dorsum of the left hand. Some excoriation noted in different stages of healing. No vesicles or purpura or petechiae noted. Extremities-intact ?4, normal range of motion, normal pulses, atraumatic] Medical Decison Making [patient presents with 2-day history of rash. Rash is not typical of a Hoa dermatitis. Suspect more likely scabies versus bedbugs. Will treat with Elimite cream. Also advised that he should contact an candy counter clerk if he is concerned about bedbugs. He can use Benadryl for the itching.] Other additions or changes: [None] Discharge Plan Triage Chief Complaint: Rash ED Midlevel Provider: Mayela Hernandez ED Provider: Vicki Patel Dx/Rx/DC Orders Clinical Impression: Acute dermatitis Instructions: ED Scabies Prescriptions: New permethrin [Elimite] 5 % cream 1 applic topical Q14D Qty: 60 0RF Rx Instructions: apply second treatment 7 days after first treatment No Action albuterol 90 mcg/actuation aerosol inhalation Q4H PRN PRN (Reason: SOB) ondansetron [ondansetron] 4 mg tablet,disintegrating 4 mg PO Q8H PRN PRN (Reason: Nausea) Qty: 10 0RF Primary Care Provider: Care Physician,No Primary Referrals: Care Physician,No Primary [Primary Care Provider] - Activity Restrictions/Additional Instructions: I prescribed medication to treat scabies as this is one possibility, please use as directed. Use benadryl for itching. Print Language: Greenlandic Disposition Disposition: Home, Self Care Discharge Date/Time: 03/19/24 11:28
== END 2024-03-19 11:28 | disposition home or self-care (01) ==
LOC: ED 11:26
PROVIDERS: Emergency Provider Emergency Medicine; Visit Provider Emergency Medicine
DX: L30.9 Dermatitis, unspecified (principal); F17.210 Nicotine dependence, cigarettes, uncomplicated; J45.909 Unspecified asthma, uncomplicated
CPT/HCPCS: 99282

== ENCOUNTER 2024-05-06 15:41 | Emergency (ER) | payer MEDICAID, SELFPAY ==
[2024-05-06 15:42] VITALS: BP 123/78; PULSE 89; RESP 16; TEMP 36.1; O2SAT 98; BMI 19.3
[2024-05-06 17:42] VITALS: BP 123/65; PULSE 77; RESP 16; O2SAT 98
[2024-05-06 19:00] VITALS: BP 114/64; PULSE 74; RESP 16; O2SAT 98
--- NOTE | 2024-05-06 20:23 | EX.ED.DYSGE1 ---
HPI History of Present Illness Chief Complaint: Headache Informant: patient Narrative Narrative: Patient is a 28-year-old male with past medical history of asthma. He states he has had 2 to 3 days of generalized fatigue and headache. He denies any trauma or history of migraine. He states there are multiple sick contacts at work with [employer] and he has concerned that his symptoms may be secondary to this and therefore comes in for evaluation [facility] Medical History (Updated 05/09/24 @ 22:[address] Yossi Guerra, DO) Tobacco abuse Asthma Home Medications ?Medication ?Instructions ?Recorded ?Last Taken ?Type permethrin 5 % topical cream 1 applic topical Q14D 2 doses #60 03/19/24 Unknown Rx (Elimite) grams prednisone 20 mg tablet 40 mg (2 x 20 mg) PO DAILY 5 days 05/06/24 Unknown Rx #10 tabs Allergy/AdvReac Type Severity Reaction Status Date / Time cat dander (cats) Allergy Intermediate Inflammation Verified 05/09/24 13:51 of lung egg Allergy Rash Verified 05/09/24 13:51 Penicillins Allergy Rash Verified 05/09/24 13:51 Family History Father Heart disease Social History Smoking Status: Current every day smoker tobacco type: cigarettes ROS ROS ED Constitutional Constitutional ED: Reports chills, fever(s) and subjective Eyes Eyes: Denies blurry vision or change in vision ENT ENT ED: Reports rhinorrhea; Denies sore throat Cardiovascular Cardiovascular: Denies chest pain Respiratory/Chest Respiratory/Chest: Denies cough or dyspnea Gastrointestinal Gastrointestinal: Denies abdominal pain, diarrhea, nausea or vomiting Genitourinary Genitourinary ED: Denies dysuria Musculoskeletal Musculoskeletal: Reports myalgias Integumentary Denies rash Neurologic Neurologic: Reports headache(s) Hematologic/Lymphatic Hematologic/Lymphatic: Denies easy bleeding or easy bruising EXAM Physical Exam Const Vital Signs: 05/06/24 15:42 05/06/24 17:42 05/06/24 19:00 Temperature 96.9 F L Temperature Source Temporal Pulse Rate 89 77 74 Respiratory Rate 16 16 16 Blood Pressure 123/78 H 123/65 H 114/64 Blood Pressure Mean 93 84 80 Pulse Ox 98 98 98 Oxygen Delivery Method Room Air Room Air Room Air Positive well nourished and well developed General Appearance ED: well developed; Negative for pallor HEENT Reports moist mucous membranes HEENT Narrative: Nasal mucosa is hyperemic and boggy There is cobblestoning noted in the posterior pharynx consistent with sinus drainage without airway edema or compromise Eyes PERRL and EOMs intact bilaterally General Eye ED: Negative for pale conjunctiva or scleral icterus Neck supple Neck Narrative: No nuchal rigidity or meningeal signs noted Resp normal respiratory effort and clear to auscultation bilaterally Cardio regular rate and regular rhythm Extremity normal to inspection Neuro oriented x3, CN's II-XII intact bilaterally and no sensory deficits noted Neuro Narrative: Cranial nerves II to XII are grossly intact there are no focal neurologic deficits No pronator drift no dysmetria no truncal ataxia GCS 15 NIH stroke scale score of 0 Sensorium / Orientation: alert Motor Exam: strength 5/5 throughout Psych Psych Narrative: Patient has a flat affect Skin no rashes or lesions noted General Skin Exam: Negative for jaundice or pallor MDM MDM MDM Narrative Medical decision making narrative: Patient arrived to ER with stable vitals and a nonfocal neurologic exam. There is no report or signs of trauma so my concern for underlying skull fracture versus epidural or subdural hematoma is low and I do not feel there is a need for a CT scan. Patient also has no meningeal signs so there is no need for laboratory testing or lumbar puncture. Symptoms are most consistent with viral syndrome and as she reports multiple sick contacts with COVID there is high concern for this so rapid viral swab will be obtained. Patient's viral swab was negative and on repeat evaluation his vitals remained stable and his neurologic exam normal. With low concern for underlying neurologic event I do not feel there is need for further workup and he is otherwise safe for discharge History & Record Review Discussion w/independent historian: Patient Discharge Plan Triage Chief Complaint: Headache ED Provider: Yossi Guerra Dx/Rx/DC Orders Clinical Impression: Cephalgia, Viral syndrome, Asthma Instructions: ED Headache Unspecified, ED Viral Syndrome (Adult) Prescriptions: New prednisone 20 mg tablet 40 mg PO DAILY 5 Days Qty: 10 0RF No Action permethrin [Elimite] 5 % cream 1 applic topical Q14D Qty: 60 0RF Rx Instructions: apply second treatment 7 days after first treatment Stand Alone Forms: ED Work / School Excuse Primary Care Provider: Care Physician,No Primary Referrals: Lucio Guaman MD [Med Staff - Active Staff] - Care Physician,No Primary [Primary Care Provider] - Print Language: Slovenian Disposition Disposition: Home, Self Care Discharge Date/Time: 05/06/24 20:28
[2024-05-06 20:27] VITALS: BP 122/68; PULSE 69; RESP 16; TEMP 36.7; O2SAT 98
== END 2024-05-06 20:28 | disposition home or self-care (01) ==
PROVIDERS: Emergency Provider Emergency Medicine; Visit Provider Emergency Medicine
DX: R51.9 Headache, unspecified (principal); B34.9 Viral infection, unspecified; Z11.52 Encounter for screening for COVID-19; J45.909 Unspecified asthma, uncomplicated; F17.210 Nicotine dependence, cigarettes, uncomplicated; Z79.899 Other long term (current) drug therapy
CPT/HCPCS: 87631; 87651; 99282

== ENCOUNTER 2024-05-08 11:41 | Emergency (ER) | payer MEDICAID, SELFPAY ==
[2024-05-08 11:42] VITALS: BP 128/78; PULSE 101; RESP 16; TEMP 36.6; O2SAT 98; BMI 19.2
[2024-05-08] MEDS: 0.9% Normal Saline (1000mL) 1,000 ML 999 ML IV (12:35)
[2024-05-08] MEDS: Ketorolac 30 MG/ML Syringe IV (12:42)
[2024-05-08] MEDS: Metoclopramide 10 MG/2 ML Vial 5 MG IV (12:42)
[2024-05-08] MEDS: DiphenhydrAMINE 50 MG/ML Syringe 25 MG IV (12:43)
--- NOTE | 2024-05-08 14:21 | EDS_ITS ---
HPI History of Present Illness Chief Complaint: Headache Narrative Narrative: Patient is a 28-year-old male with no known significant past medical history who presented to the emergency department chief complaint of headache. Patient states that he has had a headache for about 4 days now that slowly progressively worsened prompting him to come here for further evaluation management. Patient states that he has been taking [id number] medication without any symptomatic relief. He states that he has been hydrating. Patient denies any trauma to his head. Patient denies any blood thinning medications. [facility] Medical History (Updated 05/08/24 @ 14:[address] Jelani Scott, ) Tobacco abuse Asthma Home Medications ?Medication ?Instructions ?Recorded ?Last Taken ?Type albuterol 90 mcg/actuation aerosol mcg inhalation Q4H PRN PRN SOB 05/30/23 Unknown History inhaler ondansetron 4 mg disintegrating 4 mg PO Q8H PRN PRN Nausea #10 tabs 08/14/23 Unknown Rx tablet permethrin 5 % topical cream 1 applic topical Q14D 2 doses #60 03/19/24 Unknown Rx (Elimite) grams azelastine 137 mcg (0.1 %) nasal 2 spray intranasal BID #30 mL 05/06/24 Unknown Rx spray prednisone 20 mg tablet 40 mg (2 x 20 mg) PO DAILY 5 days 05/06/24 Unknown Rx #10 tabs Allergy/AdvReac Type Severity Reaction Status Date / Time cat dander (cats) Allergy Intermediate Inflammation Verified 05/08/24 12:09 of lung egg Allergy Rash Verified 05/08/24 12:09 Penicillins Allergy Rash Verified 05/08/24 12:09 Family History Father Heart disease Social History Smoking Status: Current every day smoker tobacco type: cigarettes ROS ROS ED ROS Narrative Constitutional: Complains of headache as noted above denies any fevers, chills, lightheadedness, dizziness Eyes: Denies change in vision double vision blurry vision Cardiovascular: Denies chest pain or palpitations Respiratory: Denies coughing wheezing shortness of breath Abdomen: Denies abdominal pain vomiting diarrhea Neurological: Denies numbness, weakness, tingling Musculoskeletal: Denies back pain Skin: Denies rashes or lesions EXAM Physical Exam Narrative Exam Narrative: General: Patient lying in bed rest comfortably did not appear to be in acute distress Head: Atraumatic, normocephalic Eyes: PERRL bilaterally, EOMI bilaterally, no conjunctival injection noted Neck: Soft, supple, trachea midline, patient has full range of motion of his neck no pain elicited no concern for meningitis Cardiovascular: Regular rate and rhythm no murmurs gallops rubs noted Respiratory: Clear to auscultation bilaterally Abdomen: Soft, nondistended, no tenderness palpation Extremities: +5/5 strength noted in the bilateral upper and lower extremities, no pedal edema noted on exam, Neurological: Patient is following commands knew that he was at [facility] the year is 2023 Skin: Warm, dry, intact, no rashes or lesions noted Const Vital Signs: 05/08/24 11:42 Temperature 97.9 F Temperature Source Temporal Pulse Rate 101 H Respiratory Rate 16 Blood Pressure 128/78 H Blood Pressure Mean 94 Pulse Ox 98 Oxygen Delivery Method Room Air MDM MDM MDM Narrative Medical decision making narrative: Patient is a 28-year-old male who presented to the emergency department chief complaint of headache. On the differential diagnosis includes Melamin to migraine headache, tension headache, cluster headache patient be given IV fluids, Toradol, Reglan, Benadryl here in the emergency department then be reevaluated. On reevaluation of the patient he feels significantly improved and would like to go home at this point time. COVID test negative. He is requesting referral to a primary care physician for which 1 was provided. He was encouraged to return with worsening symptoms or other concerns. All question concerns answered he is discharged home in stable condition Discharge Plan Triage Chief Complaint: Headache ED Provider: Jelani Scott Dx/Rx/DC Orders Clinical Impression: Headache Instructions: ED Headache Unspecified Prescriptions: No Action albuterol 90 mcg/actuation aerosol inhalation Q4H PRN PRN (Reason: SOB) ondansetron [ondansetron] 4 mg tablet,disintegrating 4 mg PO Q8H PRN PRN (Reason: Nausea) Qty: 10 0RF permethrin [Elimite] 5 % cream 1 applic topical Q14D Qty: 60 0RF Rx Instructions: apply second treatment 7 days after first treatment prednisone 20 mg tablet 40 mg PO DAILY 5 Days Qty: 10 0RF azelastine 137 mcg (0.1 %) spray,non-aerosol 2 spray intranasal BID Qty: 30 0RF Rx Instructions: administer into each nostril Primary Care Provider: Care Physician,No Primary Referrals: Lucio Guaman MD [Med Staff - Active Staff] - Care Physician,No Primary [Primary Care Provider] - Activity Restrictions/Additional Instructions: Use Tylenol and ibuprofen [id number] for headache control. Ensure adequate hydration. Follow-up with a primary care physician for which she referred to 1. Return with worsening symptoms or any other concerns Print Language: Citizen [place] Disposition Disposition: Home, Self Care
[2024-05-08 15:04] VITALS: BP 121/81; PULSE 86; RESP 17; TEMP 36.8; O2SAT 97
== END 2024-05-08 15:06 | disposition home or self-care (01) ==
PROVIDERS: Emergency Provider Emergency Medicine; Visit Provider Emergency Medicine
DX: R51.9 Headache, unspecified (principal); Z11.52 Encounter for screening for COVID-19; J45.909 Unspecified asthma, uncomplicated; F17.210 Nicotine dependence, cigarettes, uncomplicated
CPT/HCPCS: 87631; 96361; 96374; 96375; 99283; J7030; A4216

== ENCOUNTER 2024-05-09 13:48 | Emergency (ER) | payer MEDICAID, SELFPAY ==
[2024-05-09 13:51] VITALS: BP 135/88; PULSE 103; RESP 18; TEMP 36.7; O2SAT 99; BMI 19.5
--- NOTE | 2024-05-09 14:20 | EX.ED.VIS.HA ---
HPI History of Present Illness Chief Complaint: Headache Detail of Chief Complaint: Left-sided headache parietal area Informant: patient Onset/Context/Timing Onset: Weeks (Greater than 1 week) Context: Sudden Timing: Intermittent Quality -Headache: Positive for Dull; Negative for Similar Prior Headaches Location: Left parietal Current Severity: Moderate Maximum Severity: Severe Worsened by: Nothing specific Relieved by: Nothing Associated Symptoms/Injury Associated Symptoms: Positive for Nausea; Negative for Fever, Vomiting, Sore Throat, Sinus Pressure, Numbness, Tingling, Preceding Aura, Visual Changes, Blurred Vision, Photophobia or Visual Loss Injury - MOURA: Positive for Direct Trauma (Prior to onset of headaches, hit head on cabinet) Narrative Narrative: Patient is a 28-year-old male. Patient has no significant past medical history other than COVID. Most recent diagnosis of COVID August 2023. Patient presents with left parietal head pain. This started after head trauma. This is his third visit for the headache. He states the medication was given yesterday helped but returned. He denies double vision, blurred vision loss of vision. Eyes maddi ears decreased hearing. Eyes rhinorrhea, congestion, postnasal drainage sore throat. Denies cough or shortness of breath. He does endorse nausea without vomiting diarrhea. He denies urologic symptoms. He denies rash. He denies myalgias arthralgias. Denies joint swelling. Mother has a history of migraine. He does not have history of migraines. Prior similar symptoms: Yes Recent Illness/Hospitalization: Yes [facility] Medical History (Updated 05/09/24 @ 15:[address] Kendrick Page MD) Tobacco abuse Asthma Home Medications ?Medication ?Instructions ?Recorded ?Last Taken ?Type permethrin 5 % topical cream 1 applic topical Q14D 2 doses #60 03/19/24 Unknown Rx (Elimite) grams prednisone 20 mg tablet 40 mg (2 x 20 mg) PO DAILY 5 days 05/06/24 Unknown Rx #10 tabs Allergy/AdvReac Type Severity Reaction Status Date / Time cat dander (cats) Allergy Intermediate Inflammation Verified 05/09/24 13:51 of lung egg Allergy Rash Verified 05/09/24 13:51 Penicillins Allergy Rash Verified 05/09/24 13:51 Family History Father Heart disease Social History Smoking Status: Current every day smoker tobacco type: cigarettes ROS ROS ED Constitutional Constitutional ED: Denies chills, fever(s), subjective, sweats or weight loss Eyes Eyes: Denies blurry vision, change in vision or diplopia ENT ENT ED: Denies ear pain, rhinorrhea or sore throat Cardiovascular Cardiovascular: Denies chest pain, palpitations or racing heartbeat Respiratory/Chest Respiratory/Chest: Denies cough, dyspnea or dyspnea on exertion Gastrointestinal Gastrointestinal: Reports nausea; Denies abdominal pain, diarrhea or vomiting Genitourinary Genitourinary ED: Denies dysuria, hematuria or urinary frequency Musculoskeletal Musculoskeletal: Denies arthralgias, back pain, myalgias or neck pain Integumentary Denies rash Neurologic Neurologic: Reports headache(s); Denies paresthesias or weakness Psychiatric Psychiatric: Reports anxiety; Denies depression Hematologic/Lymphatic Hematologic/Lymphatic: Denies easy bleeding or easy bruising EXAM Physical Exam Const Vital Signs: 05/09/24 13:51 Temperature 98.1 F Temperature Source Temporal Pulse Rate 103 H Respiratory Rate 18 Blood Pressure 135/88 H Blood Pressure Mean 103 Pulse Ox 99 Oxygen Delivery Method Room Air Positive well nourished and well developed General Appearance ED: well developed and NAD; Negative for cyanotic, diaphoretic or pallor HEENT Reports normocephalic, TM's clear and moist mucous membranes HEENT Narrative: Posterior pharynx is normal. atraumatic Face and Sinus: Negative for sinus tenderness Tympanic Membrane ED: Yes TM's clear Eyes PERRL and EOMs intact bilaterally Eyes Narrative: There is no nystagmus. There is no photophobia. There is no APD. General Eye ED: Negative for pale conjunctiva or scleral icterus Neck no lymphadenopathy, supple, no meningeal signs and no JVD Resp normal respiratory effort and clear to auscultation bilaterally Cardio regular rate, regular rhythm, S1 normal heart sound, S2 normal heart sound and no murmurs GI non-tender Auscultation: normoactive bowel sounds Palpation: soft Extremity normal to inspection, full ROM and normal capillary refill Neuro oriented x3, CN's II-XII intact bilaterally and no sensory deficits noted Neuro Narrative: There is no dysmetria. Romberg with eyes open and close negative. Gait observed normal. Tandem gait normal. [place] Coma Scale: document GCS findings Spontaneous Obeys Commands Oriented 15 Sensorium / Orientation: awake and alert Coordination / Balance: zyiziz-[id number] test normal and Romberg test negative Speech: speech normal Gait (Neuro): normal gait Motor Exam: strength 5/5 throughout Psych Mood & Affect: anxious Skin General Skin Exam: elasticity normal and turgor normal; Negative for jaundice or pallor Lesions: no lesions Rashes: no rashes MDM MDM MDM Narrative Medical decision making narrative: Patient's major concern is that he has meningitis. He was informed his history is not consistent with meningitis. His physical exam is not suggestive of meningitis. Suspect he has a postconcussive headache. The 2 prior visits and documentation by Dr. Guerra and Dr. Palomares were reviewed. With no history of loss of consciousness no antithrombotic or anticoagulant and minor head trauma per the [place] CT head rule imaging is not required. Treatment and Re-Evaluation Narrative: Patient's pain is now a 2 out of 10. It has significant reduction. Patient asked for a work excuse. Patient was informed that he would receive a note that he was seen in the emergency department. It is my opinion the patient has a postconcussive headache. He was told that he may have a headache for 4 to 6 weeks. Discharge Plan Triage Chief Complaint: Headache ED Provider: Kendrick Page Dx/Rx/DC Orders Clinical Impression: Post-concussion headache, Sinus tachycardia, Elevated blood-pressure reading, without diagnosis of hypertension Instructions: Coping with Concussion, ED Concussion, ED Hypertension, To Be Confirmed Prescriptions: No Action permethrin [Elimite] 5 % cream 1 applic topical Q14D Qty: 60 0RF Rx Instructions: apply second treatment 7 days after first treatment prednisone 20 mg tablet 40 mg PO DAILY 5 Days Qty: 10 0RF Stand Alone Forms: ED Work / School Excuse Primary Care Provider: Care Physician,No Primary Referrals: Care Physician,No Primary [Primary Care Provider] - Doctor,Your [Non-Staff] - 1-2 Weeks Activity Restrictions/Additional Instructions: 1. The name of your provider is located on your insurance card issued to you by [employer] 2. You may have a headache for 4 to 6 weeks. 3. Your blood pressure is elevated. Recommend follow-up with your provider for recheck in 1 to 2 weeks Print Language: Khmer
[2024-05-09] MEDS: Ketorolac 15 MG/ML Vial IV (14:24)
[2024-05-09 16:09] VITALS: BP 121/71; PULSE 90; RESP 16; TEMP 36.7; O2SAT 99
== END 2024-05-09 16:10 | disposition home or self-care (01) ==
PROVIDERS: Emergency Provider Emergency Medicine; Visit Provider Emergency Medicine
DX: G44.309 Post-traumatic headache, unspecified, not intractable (principal); R03.0 Elevated blood-pressure reading, without diagnosis of hypertension; R00.0 Tachycardia, unspecified; F17.210 Nicotine dependence, cigarettes, uncomplicated
CPT/HCPCS: 96374; 99283; A4216

== ENCOUNTER 2024-05-10 08:32 | Emergency (ER) | payer MEDICAID, SELFPAY ==
[2024-05-10 08:33] VITALS: BP 132/80; PULSE 81; RESP 16; TEMP 36; O2SAT 98; BMI 16.9
[2024-05-10 08:48] VITALS: BP 124/65; PULSE 64; RESP 15; TEMP 36.4; O2SAT 99
--- NOTE | 2024-05-10 09:16 | EDS_ITS ---
HPI History of Present Illness Chief Complaint: Headache Narrative Narrative: 28-year-old male presents with continued headache. He states approximately a week ago he was in a basement with a lower ceiling, and hit his head. There was no loss of consciousness. Since then he has had headache. Of note, he states he was seen in the emergency department yesterday and was told that he had postconcussive syndrome, but was curious as to why CT or MRI was not performed. He denies any exacerbating or alleviating factors. He is taking [id number] medication with moderate relief of his symptoms. No other injury. Denies paresthesias. [facility] Medical History Tobacco abuse Asthma Home Medications ?Medication ?Instructions ?Recorded ?Last Taken ?Type permethrin 5 % topical cream 1 applic topical Q14D 2 doses #60 03/19/24 Unknown Rx (Elimite) grams prednisone 20 mg tablet 40 mg (2 x 20 mg) PO DAILY 5 days 05/06/24 Unknown Rx #10 tabs Allergy/AdvReac Type Severity Reaction Status Date / Time cat dander (cats) Allergy Intermediate Inflammation Verified 05/09/24 13:51 of lung egg Allergy Rash Verified 05/09/24 13:51 Penicillins Allergy Rash Verified 05/09/24 13:51 Family History Father Heart disease Social History Smoking Status: Current every day smoker tobacco type: cigarettes ROS ROS ED ROS Narrative Constitutional: No fever, no chills. HEENT: No sore throat. No neck pain. No loss of vision. No rhinorrhea. Cardiovascular: No chest pain. No palpitations. No pedal edema. Respiratory: No cough, no shortness of breath. Abdominal: No abdominal pain. No nausea. No vomiting. Genitourinary: No dysuria. No hematuria. Musculoskeletal: No myalgias. No arthralgias. Neurologic: Positive headaches. No dizziness. No lightheadedness. Skin: No rash. No change in color. Psychiatric: No depression. No anxiety. EXAM Physical Exam Const Vital Signs: 05/10/24 08:33 05/10/24 08:48 Temperature 96.8 F L 97.5 F L Temperature Source Temporal Pulse Rate 81 64 Respiratory Rate 16 15 Blood Pressure 132/80 H 124/65 H Blood Pressure Mean 97 84 Pulse Ox 98 99 Oxygen Delivery Method Room Air MDM MDM MDM Narrative Medical decision making narrative: Differential diagnosis includes postconcussive headache versus migraine. I did review his ED provider notes and this is his fourth visit for complaints of headache. His initial visit was on the third, then he was seen on the fifth, sixth, and now today. During his second visit, he denied trauma, but yesterday, he told the physician that he did have head trauma. As he does not take blood thinners, and his injury is very remote I do not feel CT imaging is indicated. I do not feel he needs other medications, nor do I feel he needs laboratory work. Patient was reassured. He was given the number to the local neurologist. He was told that he should also follow-up with a primary care provider. He was discharged in stable condition. He was reassured that he has a nonemergent condition, and that his medical screening exam is normal. Disposition is disch arged home in stable condition. History & Record Review Discussion w/independent historian: Patient Discharge Plan Triage Chief Complaint: Headache ED Provider: Hossein Weber Dx/Rx/DC Orders Clinical Impression: Post-concussion headache, Encounter for medical screening examination Instructions: After a Concussion, ED Concussion, ED Screening Exam Medical Nonurgent Prescriptions: No Action permethrin [Elimite] 5 % cream 1 applic topical Q14D Qty: 60 0RF Rx Instructions: apply second treatment 7 days after first treatment prednisone 20 mg tablet 40 mg PO DAILY 5 Days Qty: 10 0RF Primary Care Provider: Care Physician,No Primary Referrals: Gordon Wells MD [Non-Staff -Ordering Privileges] - As soon as possible Care Physician,No Primary [Primary Care Provider] - Print Language: Sinhala Disposition Disposition: Home, Self Care Discharge Date/Time: 05/10/24 09:12
== END 2024-05-10 09:12 | disposition home or self-care (01) ==
PROVIDERS: Emergency Provider Emergency Medicine; Visit Provider Emergency Medicine
DX: Z04.3 Encounter for examination and observation following other accident (principal); G44.309 Post-traumatic headache, unspecified, not intractable; F17.210 Nicotine dependence, cigarettes, uncomplicated
CPT/HCPCS: 99282

== ENCOUNTER 2024-05-13 12:50 | Emergency (ER) | payer MEDICAID, SELFPAY ==
[2024-05-13 12:51] VITALS: BP 121/78; PULSE 92; RESP 16; TEMP 36.6; O2SAT 99; BMI 18.6
--- NOTE | 2024-05-13 13:44 | CT_ITS ---
EXAM: CT HEAD WITHOUT INTRAVENOUS CONTRAST CLINICAL INDICATION: headache, head injury TECHNIQUE: Multiple axial images were obtained of the head without intravenous contrast. This CT exam was performed using one or more of the following dose reduction techniques: automated exposure control, adjustment of the mA and/or kV according to patient size, and/or use of iterative reconstruction technique. RADIATION DOSE: CTDIvol = 44.99 mGy, DLP = 779.24 mGy-cm COMPARISON: No relevant prior studies available. FINDINGS: BRAIN AND EXTRA-AXIAL SPACES: Unremarkable. No intra- or extra-axial hemorrhage. No evidence of acute infarct. No intracranial mass or mass effect. There is preservation of the fulton/white matter interface. Posterior fossa structures are unremarkable. Ventricles are appropriate for age. No hydrocephalus. Basal cisterns are patent. BONES/JOINTS: Unremarkable. No discrete lytic or blastic abnormalities. SINUSES: Unremarkable as visualized. Clear. MASTOID AIR CELLS: Unremarkable. Clear. ORBITS: Visualized globes, extraocular muscles, optic nerves and retrobulbar fat appear unremarkable. CT/Brain/Head without Contrast IMPRESSION: Negative head/brain CT without intravenous contrast. Electronically Signed: Hossein Concepcion MD at 14:00 EDT ,
--- NOTE | 2024-05-13 14:06 | EX.ED.VIS.HA ---
HPI History of Present Illness Chief Complaint: Headache Informant: patient Narrative Narrative: Patient is 28-year-old male presenting with continued headache. Patient states a little over a week little over a week ago he was going up the stairs in his basement when he hit his head. He denies any loss of consciousness. He states he was feeling okay for a week but then has had worsening headaches since. He had nausea which developed yesterday. He states it feels like there is pressure and fogginess in his head. He points to his temples as where it is but he states his left mosque is the worst. He notes he is at increased stress because of this he does not feel he is getting better. He was previously seen in the ER and told he has a concussion and this is postconcussive syndrome. Denies any photophobia or vision changes. Denies associate numbness or tingling. Has taken Tylenol with no relief of his symptoms. States has been seen in the ER couple times for this and is concerned because he has not had any imaging. Is concerned he is not safe at home because is not taking care of himself. When asked to expand on this he states he lives with his girlfriend but he has been smoking tobacco which she thinks is bad for him especially he has a concussion. Denies any HI or SI. Does admit to being a hypochondriac. [facility] Medical History (Updated 05/13/24 @ 15:[address] Charla Sepulveda, DO) Tobacco abuse Asthma Home Medications ?Medication ?Instructions ?Recorded ?Last Taken ?Type permethrin 5 % topical cream 1 applic topical Q14D 2 doses #60 03/19/24 Unknown Rx (Elimite) grams prednisone 20 mg tablet 40 mg (2 x 20 mg) PO DAILY 5 days 05/06/24 Unknown Rx #10 tabs ondansetron 4 mg disintegrating 4 mg PO Q8H PRN PRN Nausea #10 tabs 05/13/24 Unknown Rx tablet Allergy/AdvReac Type Severity Reaction Status Date / Time cat dander (cats) Allergy Intermediate Inflammation Verified 05/13/24 12:51 of lung egg Allergy Rash Verified 05/13/24 12:51 Penicillins Allergy Rash Verified 05/13/24 12:51 Family History Father Heart disease Social History Smoking Status: Current every day smoker tobacco type: cigarettes ROS ROS ED Constitutional Constitutional ED: Denies chills or fever(s) Eyes Eyes: Denies blurry vision or change in vision ENT ENT ED: Denies sore throat Cardiovascular Cardiovascular: Denies chest pain Respiratory/Chest Respiratory/Chest: Denies cough Gastrointestinal Gastrointestinal: Reports nausea; Denies abdominal pain or vomiting Musculoskeletal Musculoskeletal: Denies arthralgias, myalgias or neck pain Integumentary Denies rash Neurologic Neurologic: Reports headache(s); Denies paresthesias or weakness Psychiatric Psychiatric: Reports anxiety EXAM Physical Exam Const Vital Signs: 05/13/24 12:51 Temperature 97.8 F Temperature Source Temporal Pulse Rate 92 Respiratory Rate 16 Blood Pressure 121/78 H Blood Pressure Mean 92 Pulse Ox 99 Oxygen Delivery Method Room Air Positive well nourished and well developed General Appearance ED: well developed and NAD HEENT Reports normocephalic atraumatic; Negative for temporal artery tenderness Eyes PERRL and EOMs intact bilaterally Neck supple and No no meningeal signs General: Negative for tenderness Resp normal respiratory effort and clear to auscultation bilaterally Cardio regular rate and regular rhythm Extremity normal to inspection and full ROM Neuro oriented x3, CN's II-XII intact bilaterally and no sensory deficits noted [place] Coma Scale: document GCS findings Spontaneous Obeys Commands Oriented 15 Sensorium / Orientation: awake and alert Coordination / Balance: [id number]-ja-hvlb test normal Speech: speech normal Motor Exam: strength 5/5 throughout Psych mental status grossly normal Mood & Affect: anxious Skin Lesions: no lesions Rashes: no rashes MDM MDM MDM Narrative Medical decision making narrative: Patient had a headache. He appears nontoxic in no acute distress. He is quite anxious and tearful. He has normal neurologic exam. No meningeal signs. Given his persistent and worsening symptoms with now nausea will obtain a CT of the brain to look for any type of subdural hematoma intracranial hemorrhage. This is negative. Patient given migraine cocktail with IV fluids, Toradol, Compazine and Benadryl. On repeat evaluation he feels better. Vital signs are stable. We discharged home with a work note for tonight. Patient states he has outpatient neurology follow-up next week. Given Rx for Zofran Radiography Diagnostic Testing: Clinical Impression(s) from Imaging Studies Brain CT 05/13/24 13:44 IMPRESSION: Negative head/brain CT without intravenous contrast. Electronically Signed: Hossein Concepcion MD at 14:00 EDT , Discharge Plan Triage Chief Complaint: Headache ED Provider: Charla Sepulveda Dx/Rx/DC Orders Clinical Impression: Post-concussion headache Instructions: ED Headache Unspecified Prescriptions: New ondansetron 4 mg tablet,disintegrating 4 mg PO Q8H PRN PRN (Reason: Nausea) Qty: 10 0RF No Action permethrin [Elimite] 5 % cream 1 applic topical Q14D Qty: 60 0RF Rx Instructions: apply second treatment 7 days after first treatment prednisone 20 mg tablet 40 mg PO DAILY 5 Days Qty: 10 0RF Primary Care Provider: Moustapha Gtz Referrals: Moustapha Gtz MD [Primary Care Provider] - Activity Restrictions/Additional Instructions: Take ibuprofen and as needed Tylenol for your headache. Your CT of your brain does not show any acute abnormalities or sign of trauma. Print Language: Burkinan Disposition Disposition: Home, Self Care
[2024-05-13] MEDS: DiphenhydrAMINE 50 MG/ML Syringe 25 MG IV (14:19)
[2024-05-13] MEDS: proCHLORPERazine 10 MG/2 ML Vial IV (14:19)
[2024-05-13] MEDS: Ketorolac 15 MG/ML Vial IV (14:19)
[2024-05-13] MEDS: 0.9% Normal Saline (1000mL) 1,000 ML 1000 ML IV (14:23)
[2024-05-13 15:00] VITALS: BP 110/54; PULSE 74; RESP 17; TEMP 36.6; O2SAT 99
== END 2024-05-13 15:55 | disposition home or self-care (01) ==
PROVIDERS: Emergency Provider Emergency Medicine; PCP Family Medicine; Visit Provider Emergency Medicine
DX: G44.309 Post-traumatic headache, unspecified, not intractable (principal); F17.210 Nicotine dependence, cigarettes, uncomplicated; J45.909 Unspecified asthma, uncomplicated; F41.9 Anxiety disorder, unspecified
CPT/HCPCS: 70450; 96361; 96374; 96375; 99282; J7030; A4216

== ENCOUNTER 2024-06-28 08:37 | Emergency (ER) | payer MEDICAID, SELFPAY ==
[2024-06-28 08:37] VITALS: BP 121/71; PULSE 116; RESP 18; TEMP 36.6; O2SAT 96; BMI 18.3
--- NOTE | 2024-06-28 08:50 | ED.RN ---
Dr. Scott bedside
--- NOTE | 2024-06-28 08:56 | EKG12_ITS ---
Test Reason : GEN ILLNESS Blood Pressure : / mmHG Vent. Rate : 095 BPM Atrial Rate : 095 BPM P-R Int : 136 ms QRS Dur : 084 ms QT Int : 334 ms P-R-T Axes : 086 080 067 degrees QTc Int : 419 ms Normal sinus rhythm with sinus arrhythmia Normal ECG Confirmed by Brian Amaya ([id number]), editor managing director BASHIR MAIN ([id number]) on 06/30/2024 9:42:05 AM Referred By: Confirmed By:Brian Amaya
[2024-06-28 09:11] LABS: Absolute Lymphocyte Count 1.97 X10^3/uL (0.83-4.51); Absolute Neutrophil Count 2.6 X10^3/uL (2.0-7.7); Basophil# 0.03 X10^3/uL; Basophil% 0.6 % (0-1); Eosinophil# 0.04 X10^3/uL; Eosinophils% 0.8 % (0-5); Hematocrit 41.9 % (40-54); Hemoglobin 14.2 g/dL (13.0-16.5); Lymphocyte # 1.97 X10^3/ul (0.83-4.51); Lymphocyte % 38.9 % (19-41); Mean Corp Hgb Conc 33.9 g/dL (32-36); Mean Corpuscular Hgb 31.3 pg (27.0-32.0); Mean Corpuscular Volume 92.5 fL (80-94); Mean Platelet Vol. 9.3 fl (6.2-12.0); Monocyte% 7.9 % (0-10); NRBC Flagged by Analyzer 0 % (0-5); Neutrophil # 2.63 X10^3/uL (2.7-7.7); Neutrophil % 51.8 % (47-70); Platelet Count 200 K/mm3 (150-450); RBC Distribution Width CV 12.8 % (11.6-14.6); RBC Distribution Width SD 43.3 fl (35.1-43.9); Red Blood Count 4.53 M/mm3 (4.6-6.2); White Blood Count 5.1 K/mm3 (4.4-11.0)
[2024-06-28] MEDS: 0.9% Normal Saline (1000mL) 1,000 ML 999 ML IV (09:12)
--- NOTE | 2024-06-28 09:13 | EDS_ITS ---
HPI History of Present Illness Chief Complaint: General Illness Narrative Narrative: Patient is a 29-year-old male with past medical history of sinus tachycardia, tobacco use, asthma who presents to the emergency department with a chief complaint of concern for elevated carbon monoxide level. Patient states that has been driving his car [id number] to work and notes that it is leaking gas fumes and was concerned today that he may have carbon monoxide poisoning therefore he came here further evaluation and management. Patient denies any sick contacts. Patient states that he does have a appointment today that he is post have some testing done. He states that has been following with his primary care physician. Patient did note that he has had feelings of his heart racing in his chest recently but has not had any Holter monitor placement. [facility] Medical History (Updated 06/28/24 @ 10:[address] Jelani Scott DO) Tobacco abuse Asthma Allergy/AdvReac Type Severity Reaction Status Date / Time cat dander (cats) Allergy Intermediate Inflammation Verified 06/28/24 08:41 of lung egg Allergy Rash Verified 06/28/24 08:41 Penicillins Allergy Rash Verified 06/28/24 08:41 Family History Father Heart disease Social History Smoking Status: Current every day smoker tobacco type: cigarettes ROS ROS ED ROS Narrative Constitutional: Denies fevers, chills, headaches, lightheadedness, dizziness Eyes: Denies change vision double vision blurry vision Cardiovascular: Complains of palpitations as noted above denies chest pain Respiratory: Denies coughing wheezing shortness of breath Abdomen: Denies abdominal pain nausea vomit diarrhea : Denies any painful urination, hematuria, polyuria Neurological: Denies numbness, weakness, tingling Musculoskeletal: Denies back pain Skin: Denies rashes or lesions EXAM Physical Exam Narrative Exam Narrative: General: Patient was lying in bed rest comfortably did not appear to be in acute distress Head: Atraumatic, normocephalic Eyes: PERRL bilateral, EOMI bilateral, no conjunctival injection noted Neck: Soft, supple, trach midline Cardiovascular: Patient is tachycardic with a regular rhythm no murmurs gallops rubs noted Respiratory: Clear to auscultation bilaterally Abdomen: Soft, nondistended, nontender to palpation, bowel sounds present x 4 Extremities: +5/5 strength noted in the bilateral upper and lower extremities, radial pulses +2/4 in the bilateral per extremities Neurological: Patient follow commands knew that he was at [facility] years 2023 Skin: Warm, dry, tact Const Vital Signs: 06/28/24 08:37 06/28/24 08:49 Temperature 98 F Temperature Source Oral Pulse Rate 116 H Respiratory Rate 18 Respiratory Pattern Normal Blood Pressure 121/71 H Blood Pressure Mean 87 Pulse Ox 96 Oxygen Delivery Method Room Air MDM MDM MDM Narrative Medical decision making narrative: Patient is a 29-year-old male who presented to the emergency department chief complaint of concern for elevated carbon monoxide level. Patient will have workup performed here on the differential diagnose includes but not limited to anxiety, elevated carbon monoxide level although do feel this less likely as he has not been in close spaces carbon oxide level will be checked and may be sli ghtly elevated secondary to his tobacco use. Once workup is obtained reviewed he will be reevaluated. Patient CBC reviewed showed evidence leukocytosis white blood count normal at 5.1, hemoglobin stable at 14.2, platelet count normal at 200, sodium normal 139, potassium normal 3.6, creatinine normal at 0.88. Patient's troponin normal at less than 3, EKG reviewed and showed sinus rhythm with a rate of 95 bpm this was independently interpreted by myself. Patient's carbon monoxide level checked and was noted to be 11 which was likely slightly elevated secondary to his tobacco use with smoking. On reevaluation the patient he states that he is feeling better. I did offer him a Holter monitor for his feelings of palpitations he states that he will follow-up with his primary care physician on this and determine whether he wants to wear this or not. He was advised to go to his scheduled appointment today. He is encouraged to return with worsening symptoms or other concerns. Patient is agreeable this plan he would like to go home at this point time all question concerns answered he is discharged home in stable condition. Lab Data Labs: Laboratory Results - last 24 hr 06/28/24 09:05 WBC 5.1 RBC 4.53 L Hgb 14.2 Hct 41.9 MCV 92.5 MCH 31.3 MCHC 33.9 RDW Std Deviation 43.3 RDW Coeff of Hortencia 12.8 Plt Count 200 MPV 9.3 Immature Gran % (Auto) 0.000 Neut % (Auto) 51.8 Lymph % (Auto) 38.9 [place] % (Auto) 7.9 Eos % (Auto) 0.8 Baso % (Auto) 0.6 Absolute Neuts (auto) 2.6 Absolute Lymphs (auto) 1.97 Nucleated RBC % 0 Sodium 139 Potassium 3.6 Chloride 107 Carbon Dioxide 29.0 Anion Gap 3 L BUN 10 Creatinine 0.88 Estim Creat Clear Calc 90.59 Est GFR (MDRD) Af Amer 131 Est GFR (MDRD) Non-Af 108 BUN/Creatinine Ratio 11.3 Glucose 109 H Calcium 9.6 Troponin I High Sens < 3 L Discharge Plan Triage Chief Complaint: General Illness ED Provider: Jelani Scott Dx/Rx/DC Orders Clinical Impression: Heart palpitations, Encounter for medical screening examination Primary Care Provider: Moustapha Gtz Referrals: Moustapha Gtz MD [Primary Care Provider] - Activity Restrictions/Additional Instructions: Follow-up at your scheduled appointment today. Return with worsening symptoms or other concerns. Follow-up with your primary care physician as well. Print Language: Nepali Disposition Disposition: Home, Self Care
--- NOTE | 2024-06-28 09:19 | ED.RN ---
Carbon monoxide level is 11. Dr Scott aware.
--- NOTE | 2024-06-28 09:31 | ED.RN ---
Pt ambulated to restroom.
[2024-06-28 09:39] LABS: Anion Gap 3 (5-15); BUN 10 mg/dL (7-18); BUN/Creat Ratio 11.3 RATIO (10-20); Calcium,Total 9.6 mg/dL (8.5-10.1); Chloride 107 mmol/L (98-107); Creatinine, Serum 0.88 mg/dL (0.70-1.30); EST Glomerular Filtration Rate 108 mL/min (>60); Est Glom Filt Rate - Afr Amer 131 mL/min (>60); Estimated Creatinine Clearance 90.59 ml/min; Glucose 109 mg/dL (74-106); Potassium 3.6 mmol/L (3.5-5.1); Sodium Level 139 mmol/L (136-145); Troponin-I HS < 3 pg/mL (3.0-78.0)
[2024-06-28 10:37] VITALS: PULSE 84; RESP 18
[2024-06-28 10:39] VITALS: BP 121/71; PULSE 84; RESP 18; TEMP 36.6; O2SAT 96
== END 2024-06-28 10:40 | disposition home or self-care (01) ==
PROVIDERS: Emergency Provider Emergency Medicine; PCP Family Medicine; Visit Provider Emergency Medicine
DX: R00.2 Palpitations (principal); F17.210 Nicotine dependence, cigarettes, uncomplicated
CPT/HCPCS: 80048; 84484; 85025; 93005; 96360; 99283; J7030; A4216

== ENCOUNTER 2024-07-20 17:53 | Emergency (ER) | payer MEDICAID, SELFPAY ==
[2024-07-20 17:55] VITALS: BP 119/70; PULSE 111; RESP 18; TEMP 36.6; O2SAT 98; BMI 18.6
[2024-07-20 18:42] LABS: Absolute Lymphocyte Count 0.99 X10^3/uL (0.83-4.51); Absolute Neutrophil Count 3.5 X10^3/uL (2.0-7.7); Basophil# 0.03 X10^3/uL; Basophil% 0.6 % (0-1); Eosinophil# 0.03 X10^3/uL; Eosinophils% 0.6 % (0-5); Hematocrit 41.1 % (40-54); Hemoglobin 14.2 g/dL (13.0-16.5); Lymphocyte # 0.99 X10^3/ul (0.83-4.51); Lymphocyte % 19.4 % (19-41); Mean Corp Hgb Conc 34.5 g/dL (32-36); Mean Corpuscular Hgb 31.8 pg (27.0-32.0); Mean Corpuscular Volume 92.2 fL (80-94); Mean Platelet Vol. 9.6 fl (6.2-12.0); Monocyte# 0.51 X10^3/uL; NRBC Flagged by Analyzer 0 % (0-5); Neutrophil # 3.54 X10^3/uL (2.7-7.7); Neutrophil % 69.2 % (47-70); Platelet Count 185 K/mm3 (150-450); RBC Distribution Width CV 12.7 % (11.6-14.6); Red Blood Count 4.46 M/mm3 (4.6-6.2); White Blood Count 5.1 K/mm3 (4.4-11.0)
--- NOTE | 2024-07-20 18:50 | EKG12_ITS ---
Test Reason : PALPS Blood Pressure : / mmHG Vent. Rate : 096 BPM Atrial Rate : 096 BPM P-R Int : 128 ms QRS Dur : 074 ms QT Int : 332 ms P-R-T Axes : 080 077 046 degrees QTc Int : 419 ms Normal sinus rhythm Right atrial enlargement Borderline ECG Confirmed by Brian Amaya ([id number]), film and video editor WICHO BOLANOS ([id number]) on 07/21/2024 1:40:14 PM Referred By: Jalil Gomez Confirmed By:Brian Amaya
--- NOTE | 2024-07-20 18:51 | EX.ED.DYSGE1 ---
HPI History of Present Illness Chief Complaint: Palpitations Informant: patient and family Narrative Narrative: 29-year-old male presenting to the emergency room with anxiety. Patient states that he is with anxiety and yesterday went to see a psychiatrist at the counseling center. He was placed on venlafaxine and he started that this morning. When he woke this morning he felt more anxious than he had been feeling. Patient states that as the day went on he felt more anxious and was wondering if he was having a reaction to the vaccine. He states he has a history of sinus tachycardia was enlarged right side of his heart was worried about that. He denies any wheezing stridor swelling rashes. Noted fever. [facility] Medical History (Updated 07/20/24 @ 19:[address] Jalil Gomez DO) Tobacco abuse Asthma Home Medications ?Medication ?Instructions ?Recorded ?Last Taken ?Type NK 06/28/24 Unknown History Allergy/AdvReac Type Severity Reaction Status Date / Time cat dander (cats) Allergy Intermediate Inflammation Verified 07/20/24 17:54 of lung egg Allergy Rash Verified 07/20/24 17:54 Penicillins Allergy Rash Verified 07/20/24 17:54 Family History Father Heart disease Social History Smoking Status: Current every day smoker tobacco type: cigarettes ROS ROS ED Constitutional Constitutional ED: Denies chills, fever(s) or weight loss Eyes Eyes: Denies change in vision or diplopia ENT ENT ED: Denies ear pain, rhinorrhea or sore throat Cardiovascular Cardiovascular: Reports palpitations and racing heartbeat; Denies chest pain or orthopnea Respiratory/Chest Respiratory/Chest: Denies cough, dyspnea or orthopnea Gastrointestinal Gastrointestinal: Denies abdominal pain, diarrhea, nausea or vomiting Genitourinary Genitourinary ED: Denies dysuria, hematuria or urinary frequency Musculoskeletal Musculoskeletal: Denies arthralgias or myalgias Integumentary Denies abscess or rash Neurologic Neurologic: Denies headache(s) or weakness Psychiatric Psychiatric: Reports anxiety; Denies depression, suicidal ideation or suicidal thoughts Endocrine Endocrinology: Denies polydipsia, polyphagia or polyuria Allergic/Immunologic Allergic/Immunologic ED: Denies mouth swelling, tongue swelling or urticaria EXAM Physical Exam Const Vital Signs: 07/20/24 17:55 07/20/24 18:24 07/20/24 19:03 Temperature 97.9 F Temperature Source Oral Pulse Rate 111 H 87 Respiratory Rate 18 16 Respiratory Effort Normal Non-Labored Blood Pressure 119/70 Blood Pressure Mean 86 Pulse Ox 98 96 Oxygen Delivery Method Room Air 07/20/24 19:15 07/20/24 19:30 07/20/24 19:45 Temperature Temperature Source Pulse Rate 80 79 100 Respiratory Rate 15 16 19 H Respiratory Effort Blood Pressure 123/78 H Blood Pressure Mean 91 Pulse Ox 96 96 97 Oxygen Delivery Method Positive well nourished and well developed General Appearance ED: well developed and NAD HEENT Reports normocephalic, head/scalp atraumatic and moist mucous membranes Eyes PERRL and EOMs intact bilaterally Neck no lymphadenopathy, supple and no JVD Resp normal respiratory effort and clear to auscultation bilaterally Cardio regular rate, regular rhythm and no murmurs GI normal to inspection, nondistended, normoactive bowel sounds and non-tender Palpation: soft Back/Spine no CVA tenderness and normal ROM Extremity normal to inspection General Extremety ED: Negative for edema General Extremity: Negative for edema Neuro oriented x3 and CN's II-XII intact bilaterally Sensorium / Orientation: alert Motor Exam: strength 5/5 throughout Psych Mood & Affect: anxious; Negative for depressed or tearful Skin no rashes or lesions noted and no wounds MDM MDM MDM Narrative Medical decision making narrative: Differential diagnosis would include but not limited to cardiac dysrhythmia electrolyte abnormality anemia dehydration anxiety Patient is in a normal sinus rhythm. He has been as low as 77. When I entered the room to discuss his findings his heart rate jumps to 100. I am not seeing any significant electrolyte abnormality or evidence of anemia or dehydration. He is been normal tensive. I do think a lot of his symptoms are anxiety related. I did recommend he discuss his symptomology today with his prescriber tomorrow to see if they wish him to continue the medicine. Patient is comfortable with this plan return if worsening History & Record Review Discussion w/independent historian: Patient and Family Lab Data Attestation: I reviewed the patient's lab results. Labs: Laboratory Results - last 24 hr 07/20/24 18:21 WBC 5.1 RBC 4.46 L Hgb 14.2 Hct 41.1 MCV 92.2 MCH 31.8 MCHC 34.5 RDW Std Deviation 43.0 RDW Coeff of [place]ort[place] 12.7 Plt Count 185 MPV 9.6 Immature Gran % (Auto) 0.200 Neut % (Auto) 69.2 Lymph % (Auto) 19.4 [place] % (Auto) 10.0 Eos % (Auto) 0.6 Baso % (Auto) 0.6 Absolute Neuts (auto) 3.5 Absolute Lymphs (auto) 0.99 Nucleated RBC % 0 Sodium 138 Potassium 3.6 Chloride 108 H Carbon Dioxide 25.0 Anion Gap 6 BUN 9 Creatinine 0.76 Estim Creat Clear Calc 106.00 Est GFR (MDRD) Af Amer 157 Est GFR (MDRD) Non-Af 129 BUN/Creatinine Ratio 11.9 Glucose 104 Calcium 9.0 Magnesium 2.2 EKG Initial EKG: Attestation: I personally reviewed and interpreted this EKG as follows: Comments: Normal sinus rhythm ventricular rate of 96 bpm with voltage criteria for right atrial enlargement Prior EKG tracings: available for review Prior: Unchanged (2019) Discharge Plan Triage Chief Complaint: Palpitations ED Provider: Jalil Gomez Dx/Rx/DC Orders Clinical Impression: Anxiety, Palpitations Instructions: ED Palpitations Prescriptions: No Action NK Primary Care Provider: Moustapha Gtz Referrals: Moustapha Gtz MD [Primary Care Provider] - 1 Week if not improving Activity Restrictions/Additional Instructions: I would recommend calling your psychiatrist tomorrow to discuss today Print Language: Qatari Disposition Disposition: Home, Self Care
[2024-07-20 19:03] VITALS: PULSE 87; RESP 16; O2SAT 96
[2024-07-20 19:05] LABS: Anion Gap 6 (5-15); BUN 9 mg/dL (7-18); BUN/Creat Ratio 11.9 RATIO (10-20); Chloride 108 mmol/L (98-107); Creatinine, Serum 0.76 mg/dL (0.70-1.30); EST Glomerular Filtration Rate 129 mL/min (>60); Est Glom Filt Rate - Afr Amer 157 mL/min (>60); Glucose 104 mg/dL (74-106); Magnesium 2.2 mg/dL (1.6-2.6); Potassium 3.6 mmol/L (3.5-5.1); Sodium Level 138 mmol/L (136-145)
[2024-07-20 19:15] VITALS: PULSE 80; RESP 15; O2SAT 96
[2024-07-20 19:30] VITALS: BP 123/78; PULSE 79; RESP 16; O2SAT 96
[2024-07-20 19:45] VITALS: PULSE 100; RESP 19; O2SAT 97
[2024-07-20 19:51] VITALS: BP 129/75; PULSE 88; RESP 20; TEMP 36.8; O2SAT 98
== END 2024-07-20 19:56 | disposition home or self-care (01) ==
PROVIDERS: Emergency Provider Emergency Medicine; PCP Family Medicine; Referring Provider Emergency Medicine; Visit Provider Emergency Medicine
DX: R00.2 Palpitations (principal); F41.9 Anxiety disorder, unspecified; F17.210 Nicotine dependence, cigarettes, uncomplicated
CPT/HCPCS: 80048; 83735; 85025; 93005; 99284; A4216

== ENCOUNTER 2024-11-05 15:48 | Emergency (ER) | payer MEDICAID, SELFPAY ==
[2024-11-05 15:49] VITALS: BP 119/80; PULSE 106; RESP 15; TEMP 36.1; O2SAT 97; BMI 16.9
[2024-11-05 18:01] VITALS: BP 128/89
--- NOTE | 2024-11-05 18:16 | EX.ED.DYSGE1 ---
HPI History of Present Illness Chief Complaint: Anxiety Informant: patient Onset/Context/Timing Onset: Today Context: Sudden Onset Timing: Continuous Quality: Racing Location: Chest Worsened by: Nothing Relieved by: Sleep Narrative Narrative: Patient presents with increasing anxiety that began today. Patient states it began rather suddenly. Patient states he felt like his heart was racing. Patient states it gets better when he is able to sleep. Patient states nothing makes it worse. Patient denies any shortness of breath. Patient denies any nausea or vomiting. Patient does admit to some pain into his back. Patient denies any fevers or chills. Patient denies any suicidal homicidal ideations. Patient states he has been taking his BuSpar with no improvement. Prior similar symptoms: Yes PFSH PFSH Medical History Anxiety Tobacco abuse Asthma Home Medications ?Medication ?Instructions ?Recorded ?Last Taken ?Type NK 06/28/24 Unknown History Allergy/AdvReac Type Severity Reaction Status Date / Time cat dander (cats) Allergy Intermediate Inflammation Verified 07/20/24 17:54 of lung egg Allergy Rash Verified 07/20/24 17:54 Penicillins Allergy Rash Verified 07/20/24 17:54 Family History Father Heart disease Surgical History no surgical history no surgical history Social History household members: significant other housing: apartment Smoking Status: Current every day smoker tobacco type: cigarettes ROS ROS ED Constitutional Constitutional ED: Denies chills or fever(s) Eyes Eyes: Denies blurry vision or change in vision ENT ENT ED: Denies rhinorrhea or sore throat Cardiovascular Cardiovascular: Reports palpitations; Denies chest pain Respiratory/Chest Respiratory/Chest: Denies cough or dyspnea Gastrointestinal Gastrointestinal: Denies nausea or vomiting Genitourinary Genitourinary ED: Denies dysuria or hematuria Musculoskeletal Musculoskeletal: Reports back pain; Denies neck pain Integumentary Denies abscess or rash Neurologic Neurologic: Denies headache(s) or weakness Psychiatric Psychiatric: Reports anxiety; Denies suicidal ideation or suicidal thoughts Allergic/Immunologic Allergic/Immunologic ED: Denies mouth swelling or urticaria EXAM Physical Exam Const Vital Signs: 11/05/24 15:49 Temperature 97.0 F L Temperature Source Temporal Pulse Rate 106 H Respiratory Rate 15 Blood Pressure 119/80 Blood Pressure Mean 93 Pulse Ox 97 Oxygen Delivery Method Room Air Positive well nourished and well developed General Appearance ED: well developed and NAD HEENT Reports moist mucous membranes Neck supple and no JVD Resp normal respiratory effort and clear to auscultation bilaterally Cardio regular rhythm Rate: tachycardic GI non-tender and non-distended Palpation: soft Extremity normal to inspection Neuro oriented x3, CN's II-XII intact bilaterally and no sensory deficits noted Sensorium / Orientation: alert Motor Exam: strength 5/5 throughout Psych Mood & Affect: anxious MDM MDM MDM Narrative Medical decision making narrative: Differential diagnosis includes cardiac dysrhythmia, cardiac ischemia, anxiety, electrolyte abnormality, and anemia. EKG will be obtained to assess for cardiac dysrhythmia and cardiac ischemia. CBC will be obtained to assess for leukocytosis and anemia. Basic metabolic profile will be obtained to assess for electrolyte abnormality and renal function. Lab Data Attestation: I reviewed the patient's lab results. Lab results narrative: CBC was reviewed and was within normal limits. Basic metabolic profile was reviewed and was within normal limits. EKG Initial EKG: Attestation: I personally reviewed and interpreted this EKG as follows: Interpretation: Sinus Rhythm (76) and No Acute Injury Pattern Comments: EKG was obtained. On my independent interpretation, it showed a normal sinus rhythm with a rate of 76. ID interval, QRS interval, and QTc intervals were all normal. [place] was normal. There are no acute ST or T wave changes. Prior EKG tracings: available for review Prior: Unchanged Treatment and Re-Evaluation :: Patient was advised of his findings. Patient was instructed to continue his BuSpar as prescribed. Patient was instructed to drink plenty of fluids. Patient was instructed to stop smoking. Patient was instructed to limit his caffeine intake. Patient was instructed to follow-up with his primary care physician in 5 to 7 days. Patient understood and was agreeable with the plan. All questions were answered. Discharge Plan Triage Chief Complaint: Anxiety ED Provider: David Lomax Dx/Rx/DC Orders Clinical Impression: Anxiety, Tobacco abuse Instructions: ED Anxiety Reaction Prescriptions: No Action NK Primary Care Provider: Moustapha Gtz Referrals: Moustapha Gtz MD [Primary Care Provider] - 3-5 Days Print Language: Romanian Disposition Disposition: Home, Self Care
--- NOTE | 2024-11-05 18:17 | EKG12_ITS ---
Test Reason : Blood Pressure : */* mmHG Vent. Rate : 76 BPM Atrial Rate : 76 BPM P-R Int : 124 ms QRS Dur : 86 ms QT Int : 360 ms P-R-T Axes : 79 86 69 degrees QTcB Int : 405 ms Normal sinus rhythm Normal ECG Confirmed by TONJA ESCALERA, DES ([id number]), editor at large BASHIR MAIN ([id number]) on 11/06/2024 8:24:42 AM Referred By: Confirmed By: DES EVANGELISTA MD
[2024-11-05 18:43] LABS: Absolute Lymphocyte Count 1.24 X10^3/uL (0.83-4.51); Absolute Neutrophil Count 2.4 X10^3/uL (2.0-7.7); Basophil# 0.03 X10^3/uL; Basophil% 0.8 % (0-1); Eosinophil# 0.01 X10^3/uL; Eosinophils% 0.3 % (0-5); Hematocrit 46.8 % (40-54); Hemoglobin 16.2 g/dL (13.0-16.5); Lymphocyte # 1.24 X10^3/ul (0.83-4.51); Lymphocyte % 32.3 % (19-41); Mean Corp Hgb Conc 34.6 g/dL (32-36); Mean Corpuscular Hgb 31.6 pg (27.0-32.0); Mean Corpuscular Volume 91.4 fL (80-94); Mean Platelet Vol. 9.3 fl (6.2-12.0); Monocyte# 0.21 X10^3/uL; Monocyte% 5.5 % (0-10); NRBC Flagged by Analyzer 0 % (0-5); Neutrophil # 2.35 X10^3/uL (2.7-7.7); Neutrophil % 61.1 % (47-70); Platelet Count 207 K/mm3 (150-450); RBC Distribution Width CV 12.2 % (11.6-14.6); RBC Distribution Width SD 40.9 fl (35.1-43.9); Red Blood Count 5.12 M/mm3 (4.6-6.2); White Blood Count 3.8 K/mm3 (4.4-11.0)
[2024-11-05 18:56] LABS: Anion Gap 7 (5-15); BUN 10 mg/dL (7-18); BUN/Creat Ratio 11.6 RATIO (10-20); Calcium,Total 9.1 mg/dL (8.5-10.1); Chloride 106 mmol/L (98-107); Creatinine, Serum 0.86 mg/dL (0.70-1.30); EST Glomerular Filtration Rate 112 mL/min (>60); Est Glom Filt Rate - Afr Amer 135 mL/min (>60); Estimated Creatinine Clearance 85.38 ml/min; Glucose 102 mg/dL (74-106); Potassium 4.4 mmol/L (3.5-5.1); Sodium Level 138 mmol/L (136-145)
== END 2024-11-05 19:28 | disposition home or self-care (01) ==
PROVIDERS: Emergency Provider Emergency Medicine; PCP Family Medicine; Visit Provider Emergency Medicine
DX: F41.9 Anxiety disorder, unspecified (principal); F17.210 Nicotine dependence, cigarettes, uncomplicated; Z79.899 Other long term (current) drug therapy
CPT/HCPCS: 80048; 85025; 93005; 99282; A4216

== ENCOUNTER 2025-01-11 17:24 | Emergency (ER) | payer MEDICAID, SELFPAY ==
[2025-01-11 17:26] VITALS: BP 127/73; PULSE 83; RESP 18; TEMP 36.1; O2SAT 100; BMI 17.1
--- NOTE | 2025-01-11 19:09 | EX.ED.VIS.PS ---
HPI HPI - Psych History of Present Illness Chief Complaint: Anxiety Informant: patient Narrative Narrative: Patient is a 29-year-old male with history of tobacco use and anxiety follows with a counselor and psychiatrist presenting with panic attack. Patient states he was at work when he developed a panic attack. States he felt like he was having a heart attack. He states since being here he is calm down and is feeling much better. He thinks it was triggered by him not having enough sleep lately as he is been working a lot (works 10 to 12-hour shifts at [employer] and it has been stressful). States he has appointment to see a psychiatrist on the . He has been compliant with his BuSpar and does have a prescription for as needed Xanax as needed for anxiety. Denies any HI or SI. States at this time he feels safe going home. No other complaints or concerns reported. Feels that he is been in his normal state of health. Denies associated fever, chills, shortness of breath, nausea, vomiting or diarrhea. PFSH PFSH Medical History Anxiety Tobacco abuse Asthma Home Medications ?Medication ?Instructions ?Recorded ?Last Taken ?Type NK 06/28/24 Unknown History Allergy/AdvReac Type Severity Reaction Status Date / Time cat dander (cats) Allergy Intermediate Inflammation Verified 01/11/25 17:26 of lung egg Allergy Rash Verified 01/11/25 17:26 Penicillins Allergy Rash Verified 01/11/25 17:26 Family History Father Heart disease Social History household members: significant other housing: apartment Smoking Status: Current every day smoker tobacco type: cigarettes ROS ROS ED Constitutional Constitutional ED: Denies chills or fever(s) Cardiovascular Cardiovascular: Reports racing heartbeat; Denies chest pain Respiratory/Chest Respiratory/Chest: Denies cough or dyspnea Gastrointestinal Gastrointestinal: Denies abdominal pain, nausea or vomiting Musculoskeletal Musculoskeletal: Denies arthralgias or myalgias Neurologic Neurologic: Denies weakness Psychiatric Psychiatric: Reports anxiety; Denies suicidal ideation or suicidal thoughts EXAM Physical Exam Const Vital Signs: 01/11/25 17:26 Temperature 97 F L Temperature Source Temporal Pulse Rate 83 Respiratory Rate 18 Blood Pressure 127/73 H Blood Pressure Mean 91 Pulse Ox 100 Oxygen Delivery Method Room Air Positive well nourished and well developed Constitutional Narrative: Thin General Appearance ED: well developed and NAD; Negative for pallor HEENT Reports moist mucous membranes HEENT Narrative: Edentulous Eyes PERRL and EOMs intact bilaterally Neck supple Resp normal respiratory effort and clear to auscultation bilaterally Cardio no murmurs Cardio Narrative: 2+ radial pulses present Rate: regular rate Rhythm: regular rhythm GI non-tender and non-distended Extremity normal to inspection Neuro oriented x3 Sensorium / Orientation: alert Motor Exam: muscle tone normal throughout; Negative for general weakness Psych mental status grossly normal, thought process normal, cooperative, affect normal and speech normal Thought Content: normal thought content and No suicidality Memory / Cognition: memory grossly intact Insight: insight good Judgement: judgement good Skin General Skin Exam: Negative for pallor Rashes: no rashes MDM MDM MDM Narrative Medical decision making narrative: Patient evaluated for anxiety attack. Since being the ER he is calm down his feeling much better. Vital signs are normal and low suspicion for acute cardiopulmonary process. Does have a history of anxiety. Is established with the counseling center and a psychiatrist. Is comfortable being discharged home at this time. Denies any HI or SI I feel like he is a safe candidate for outpatient follow-up. Is offered a prescription for hydroxyzine but states he will just talk to his psychiatrist about this. Does have as needed Xanax as needed. Given return precautions. Discharged home in stable condition. Discharge Plan Triage Chief Complaint: Anxiety ED Provider: Charla Sepuvleda Dx/Rx/DC Orders Clinical Impression: Anxiety attack Instructions: ED Panic Attack Prescriptions: No Action NK Stand Alone Forms: ED Work / School Excuse Primary Care Provider: Moustapha Gtz Referrals: Moustapha Gtz MD [Primary Care Provider] - Activity Restrictions/Additional Instructions: Please continue to follow-up outpatient with behavioral health and your psychiatrist. Return if you have a progression worsening your symptoms or further concerns. Print Language: Northern Irish Disposition Disposition: Home, Self Care
== END 2025-01-11 19:18 | disposition home or self-care (01) ==
PROVIDERS: Emergency Provider Emergency Medicine; PCP Family Medicine; Visit Provider Emergency Medicine
DX: F41.1 Generalized anxiety disorder (principal); F17.210 Nicotine dependence, cigarettes, uncomplicated; Z79.899 Other long term (current) drug therapy
CPT/HCPCS: 99282

== ENCOUNTER 2025-03-16 21:52 | Emergency (ER) | payer MEDICAID, SELFPAY ==
[2025-03-16 21:52] VITALS: BP 116/67; PULSE 77; RESP 16; TEMP 37.1; O2SAT 100; BMI 17.0
--- OUTSIDE RECORDS SUMMARY | 2025-03-16 22:36 | XMS RPT_ITS | CCD ---
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 Name Role Phone Unavailable Primary Care Provider Daryn Stratton MD Primary Care Provider Unavailable Primary Care Provider DARYN Stratton Attending DARYN Jackson Primary Care DARYN Jackson Referring DARYN Jackson Primary Care DARYN Jackson Primary Care DARYN Jackson Attending Kameron le Allergies Allergy Classification Reported Allergen(s) Allergy Type Date of Onset Reaction(s) Facility (12 sources) egg extract; Translations: [EGG] Drug Allergy 5 [facility] (12 sources) Penicillins; Translations: [PENICILLINS] [facility] Work Phone: (5 sources) Cat; Translations: [CATS] Allergy to substance 5 Shortness of Breath [facility] Medications Current Medications Medication Drug Class(es) Dates Sig (Normalized) Sig (Original) albuterol 0.83 mg/ml inhalation solution (20 sources) beta2-Adrenergic Agonist Start: 07-24-2021 End: 06-26-2024 take 2.5 mg by inhalation every four hours as needed albuterol (PROVENTIL) 2.5 mg /3 mL (0.083 %) nebulizer solution Use 3 mL via nebulizer every 4 hours as needed for wheezing/shortnes s of breath. Use over 5-15minutes. 432 mL 1 06/26/2024 Active Start: 03-18-2021 End: 06-26-2024 take 2 puff(s) by inhalation every four hours as needed albuterol HFA (PROAIR HFA) 90 mcg/actuation inhaler Inhale 2 Puffs as instructed every 4 hours as needed. 1 Each 06/26/2024 Active Comment on above: Inhale 2 Puffs as in structed every 4 hours as needed. Use 3 mL via nebuliz er every 4 hours as needed for wheezing/shortness of breath. Use over 5-15minutes. amitriptyline hydrochloride 10 mg oral tablet (1 source) Tricyclic Antidepressant Start: take 1 tablet by mouth once daily at bedtime amitriptyline (ELAVIL) 10 mg tablet Take 1 tablet every day by oral route at bedtime. 05/16/2024 Active buPROPion hydrochloride 75 mg oral tablet (1 source) Aminoketone Start: buPROPion (WELLBUTRIN) 75 mg tablet 07/21/2024 Active cholecalciferol 1.25 mg oral capsule (2 sources) Vitamin D Start: End: take 1 capsule by mouth every week cholecalciferol, Vitamin D3, (VITAMIN D3) 1,250 mcg (50,000 unit) cap capsule Indications: Vitamin D deficiency Take 1 capsule by mouth one time a week. 12 capsule 06/27/2024 09/25/2024 Active doxycycline monohydrate 100 mg oral tablet (1 source) Tetracycline-class Drug Start: End: take 1 tablet by mouth twice daily doxycycline monohydrate 100 mg tablet Indications: Lower resp. tract infection Take 1 tablet by mouth two times a day for 7 days. 14 tablet 07/23/2024 07/30/2024 Active ergocalciferol 1.25 mg oral capsule (1 source) Provitamin D2 Compound take 1 capsule by mouth every week ergocalciferol 50,000 unit capsule (VITAMIN D2, DRISDOL) Take 1 capsule by mouth one time a week. Active loratadine 10 mg oral tablet (1 source) Start: End: take 1 tablet by mouth once daily loratadine (CLARITIN) 10 mg tablet Take 1 tablet by mouth once daily. 30 tablet 2 01/15/2024 04/14/2024 Active Comment on above: Take 1 tablet by milagros once daily. predniSONE 10 mg oral tablet (1 source) Start: End: take 3 tablets by mouth once daily predniSONE (DELTASONE) 10 mg tablet Take 3 tablets by mouth once daily for 5 days. 15 tablet 0 01/15/2024 01/20/2024 Active Comment on above: Take 3 tablets by mo [facility] once daily for 5 days. propranolol hydrochloride 10 mg oral tablet (1 source) beta-Adrenergic [place] propranolol (INDERAL ) 10 mg tablet Active 24 hr venlafaxine 37.5 mg extended release oral capsule (1 source) Serotonin and Norepinephrine Reuptake Inhibitor venlafaxine ER (EFFEXOR XR) 37.5 mg 24 hr capsule Active vitamin b12 1 mg oral tablet (2 sources) Vitamin B12 Start: End: take 1 tablet by mouth once daily cyanocobalamin (VITAMIN B-12) 1,000 mcg tab Take 1 tablet by mouth once daily. 90 tablet 1 07/04/2024 12/31/2024 Active Completed/Discontinued Medications Medication Drug Class(es) Dates Sig (Normalized) Sig (Original) acetic acid 20 mg/ml otic solution (6 sources) Start: 11-12-2022 End: 06-26-2024 acetic acid (VOSOL) 2 % otic solution Use 4 Drops in the left ear three times daily. 15 mL 11/12/2022 06/26/2024 Discontinued (Course of therapy completed) Comment on above: Use 4 Drops in the l eft ear three times daily. cetirizine hydrochloride 10 mg oral tablet (8 sources) Histamine-1 Receptor Antagonist Start: 06-05-2022 End: 06-26-2024 take 1 tablet by mouth once daily cetirizine (ZYRTEC) 10 mg tablet Take 1 tablet by mouth once daily. 30 tablet 06/05/2022 06/26/2024 Discontinued (Course of therapy completed) Comment on above: [facility] Problems Problem Classification Problem Date Documented Da te Episodic/Chronic Anxiety disorders (2 sources) Generalized anxiety disorder; Translations: [Generalized anxiety disorder] Onset: 06-26-2024 06-26-2024 Chronic Asthma (20 sources) Uncomplicated asthma; Translations: [Unspecified asthma, uncomplicated] Onset: 10-20-2006 01-31-2017 Chronic Cardiac dysrhythmias (2 sources) Tachycardia; Translations: [Tachycardia, unspecified] Onset: 05-11-2024 05-11-2024 Episodic Diseases of mouth; excluding dental (2 sources) Black hairy tongue; Translations: [Hypertrophy of tongue papillae] Onset: 05-11-2024 05-11-2024 Episodic Headache; including migraine (1 source) Headache; Translations: [Headache, unspecified headache type] 05-11-2024 Episodic Headache; including migraine (1 source) Headache; including migraine; Translations: [Headache, unspecified headache type] Onset: 05-11-2024 Immunizations and screening for infectious disease (1 source) Suspected disease caused by 2019-nCoV; Translations: [Suspected COVID-19 virus infection] Episodic Mood disorders (2 sources) Bipolar affective disorder, current episode mixed; Translations: [Bipolar disorder, current episode mixed, unspecified] Onset: 06-26-2024 06-26-2024 Chronic Nutritional deficiencies (4 sources) Vitamin D deficiency; Translations: [Vitamin D deficiency, unspecified] 06-27-2024 Chronic Other and ill-defined heart disease (1 source) Right atrial enlargement; Translations: [Cardiomegaly] 05-11-2024 Chronic Other and ill-defined heart disease (1 source) Cardiomegaly; Translations: [Right atrial enlargement] Onset: 05-11-2024 Chronic Other ear and sense organ disorders (1 source) Acute otitis externa of left ear; Translations: [Unspecified acute noninfective otitis externa, left ear] Episodic Other gastrointestinal disorders (1 source) Diarrhea; Translations: [Diarrhea, unspecified] Episodic Other gastrointestinal disorders (1 source) Loose stool; Translations: [Other fecal abnormalities] Episodic Other injuries and conditions due to external causes (1 source) Injury of head; Translations: [Unspecified injury of head, subsequent encounter] 05-11-2024 Episodic Other injuries and conditions due to external causes (1 source) Unspecified injury of head, subsequent encounter; Translations: [Injury of head, subsequent encounter] Onset: 05-11-2024 Episodic Other lower respiratory disease (1 source) Cough; Translations: [Acute cough] Episodic Other lower respiratory disease (1 source) Wheezing; Translations: [Wheezing] Episodic Other lower respiratory disease (1 source) Lower respiratory tract infection; Translations: [Unspecified acute lower respiratory infection] 07-23-2024 Episodic Other upper respiratory disease (11 sources) Allergic rhinitis; Translations: [Allergic rhinitis, unspecified] Onset: 07-22-2018 07-22-2018 Chronic Other upper respiratory disease (1 source) Nasal congestion; Translations: [Nasal congestion] Episodic Other upper respiratory infections (1 source) Pharyngitis; Translations: [Acute pharyngitis, unspecified] 07-02-2023 Episodic Residual codes; unclassified (2 sources) Tobacco use and exposure - finding; Translations: [Tobacco use] 05-11-2024 Episodic Residual codes; unclassified (1 source) Tobacco use; Translations: [Tobacco use] Onset: 05-11-2024 Episodic Substance-related disorders (11 sources) Smoker; Translations: [Nicotine dependence, unspecified, uncomplicated] Onset: 07-22-2018 07-22-2018 Chronic Viral infection (1 source) Viral disease; Translations: [Viral infection, unspecified] 07-02-2023 Episodic Results Test Name Value Interpretation Reference Range Facility [facility] 07-23-2024 CNOV Office Visit (UCWSTR ) AZAELGORDON Rodriguez ([id number]) 1995 M Date Time Provider Department 07/23/24 10:00 AM [facility] During your visit today, we recorded the following information about you: Temperature Pulse Respiration Blood pressure 98.6 degrees 92/minute 18/minute 112/75 Weight 50.4 kg Genevieve Wade APRN.CNP 07/23/2024 10:23 AM Signed Subjective HPI HPI Gordon Rodriguez Azael is a 29 year old male who presents today for CC of cough, congestion. This started 4 days ago. Has tried otc medication for relief. Symptoms are worsened by nothing. Risk factors smoker hx of asthma. .Patient presents with: Cough: Chest congestion, fever x4 days PAST MEDICAL HISTORY Diagnosis Date Allergic rhinitis, unspecified 07/22/[address] Gomez Bipolar disorder ([facility]) Black hairy tongue Depression Edentulous Headache NEGATIVE MEDICAL HISTORY normal color vision PMH - PAST MEDICAL HISTORY OF spinal meningitis at 12 months Smoker 07/22/2018 Tobacco use disorder Vitamin B12 deficiency Vitamin D deficiency PAST SURGICAL HISTORY Procedure Laterality Date CIRCUMCISION,CLAMP,NEW BORN ALLERGIES Cats, Penicillins, and Eggs [Egg] MEDICATIONS amitriptyline (ELAVIL) 10 mg tablet Take 1 tablet every day by oral route at bedtime. buPROPion (WELLBUTRIN) 75 mg tablet propranolol (INDERAL) 10 mg tablet venlafaxine ER (EFFEXOR XR) 37.5 mg 24 hr capsule cyanocobalamin (VITAMIN B-12) 1,000 mcg tab Take 1 tablet by mouth once daily. cholecalciferol, Vitamin D3, (VITAMIN D3) 1,250 mcg (50,000 unit) cap capsule Take 1 capsule by mouth one time a week. albuterol HFA (PROAIR HFA) 90 mcg/actuation inhaler Inhale 2 Puffs as instructed every 4 hours as needed. albuterol (PROVENTIL) 2.5 mg /3 mL (0.083 %) nebulizer solution Use 3 mL via nebulizer every 4 hours as needed for wheezing/shortness of breath. Use over 5-15minutes. ergocalciferol 50,000 unit capsule (VITAMIN D2, DRISDOL) Take 1 capsule by mouth one time a week. (Patient not taking: Reported on 07/23/2024) FAMILY HISTORY Problem Relation Age of Onset Stroke Mother Diabetes Mother Asthma Mother Hyperlipidemia Mother Hypertension Mother Heart Attack Father 56 No Known Problems Sister No Known Problems Brother No Known Problems Brother Asthma Maternal Grandmother Diabetes Maternal Grandmother Diabetes Maternal Uncle No Known Problems Daughter Social History Tobacco Use Smoking status: Every Day Current packs/day: 0.75 Average packs/day: 0.7 packs/day for 16.1 years (12.1 ttl pk-yrs) Types: Cigarettes Start date: 06/26/2008 Smokeless tobacco: Never Tobacco comments: mother smokes Vaping Use Vaping status: Former Substance Use Topics Alcohol use: Never Drug use: Never Review of Systems Constitutional: Negative for fever. HENT: Positive for congestion and sore throat. Negative for ear pain and nosebleeds. Respiratory: Positive for cough. Negative for shortness of breath and wheezing. Musculoskeletal: Negative for neck pain. Objective Blood pressure 112/75, pulse 92, temperature 37 ?C (98.6 ?F), resp. rate 18, weight 50.4 kg (111 lb 1.8 oz), SpO2 100%. Physical Exam Constitutional: General: He is not in acute distress. Appearance: He is not toxic-appearing or diaphoretic. HENT: Head: Normocephalic and atraumatic. Cardiovascular: Rate and Rhythm: Normal rate and regular rhythm. Heart sounds: Normal heart sounds, S1 normal and S2 normal. Pulmonary: Effort: Pulmonary effort is normal. Breath sounds: Normal breath sounds. Lymphadenopathy: Cervical: No cervical adenopathy. Right cervical: No superficial cervical adenopathy. Left cervical: No superficial cervical adenopathy. Neurological: Mental Status: He is alert and oriented to person, place, and time. Gait: Gait is intact. ASSESSMENT/PLAN: 1. Lower resp. tract infection - ICD9: 519.8, ICD10: J22 No xray available - Discussed supportive care - Limit exposure to smoke and other inhaled irritants - Discussed possible red flags and when to seek medical attention - Follow up in 3-5 days or sooner if no better or worse -If you experience chest pain/shortness of breath go to ER - DOXYCYCLINE MONOHYDRATE 100 MG TABLET Genevieve Wade APRN.[facility] Allergies As of Date: 07/23/2024 Noted Allergy Reaction CATS 07/09/2005 12 - Shortness of Breath Comments: Patient reported allergy on 05/11/24 PENICILLINS 07/09/2005 4 - Hives EGGS (EGG) 10/10/2014 2 - Rash Date Reviewed: 07/23/2024 Reviewed by: Jessica Krause MA - Fully Assessed Reason for Visit: Cough [28] Cmt: Chest congestion, fever x4 days Primary Visit Diagnosis:Lower resp. tract infection [J22] Order(s):doxycycline monohydrate 100 mg tabletTake 1 tablet by mouth two times a day for 7 days.Disp: 14 tabletRfl: 0 Prescriptions as of (more content not included)... Normal [facility] CNCOon 06-29-2024 CNCO Letter Text Normal [facility] CNPNon 06-27-2024 [facility] AZAELGORDON ([id number]) 1995 M Date Time Provider Department 06/27/24 DARYN GTZ During your visit today, we recorded the following information about you: Daryn Gtz MD 06/27/2024 9:20 AM Signed Vitamin D level severely low. Recommend 50,000 units of vitamin D weekly x 12 weeks and recheck in 3 months. Vitamin B 12 is also low. We can treat this with daily vitamin B12 supplement 1,000 mg OTC vs a monthly injection. Let me know which he would prefer. His other labs are normal. Oliva Nunez RN 06/27/2024 9:33 AM Signed Tried calling the Pts phone number and get this reply, the number you dialed has been changed, disconnected, or is no longer in service. Called and left a voicemail on Pts significant other and mothers phone numbers for the Patient to call back and ask for a nurse to receive the providers message. DAGOBERTO Thompson Lori, LPN 06/29/2024 7:58 AM Signed Letter sent to patient requesting call back and to update contact information. SEMAJ Saini Beth, LPN 07/04/2024 10:01 AM Signed Patient returned call and went over results, notes from Dr Gtz with understanding. Aware Vitamin D rx sent to pharmacy. Patient wants to take the supplement, [facility]. Pending rx needs completed. Daryn Gtz MD 07/04/2024 10:18 AM Signed Rx sent. Allergies As of Date: 06/27/2024 Noted Allergy Reaction CATS 07/09/2005 12 - Shortness of Breath Comments: Patient reported allergy on 05/11/24 PENICILLINS 07/09/2005 4 - Hives EGGS (EGG) 10/10/2014 2 - Rash Date Reviewed: 06/26/2024 Reviewed by: Mariely Stein LPN - Fully Assessed Reason for Visit: Results [95] Primary Visit Diagnosis:Vitamin D deficiency [E55.9] Order(s):cholecalcifer ol, Vitamin D3, (VITAMIN D3) 1,250 mcg (50,000 unit) cap capsuleTake 1 capsule by mouth one time a week.Disp: 12 capsuleRfl: 0 VITAMIN D 25 HYDROXY [SQVITD] Order #: [id number] FUTURE cyanocobalamin (VITAMIN B-12) 1,000 mcg tabTake 1 tablet by mouth once daily.Disp: 90 tabletRfl: 1 Prescriptions as of 07/04/2024 - cyanocobalamin (VITAMIN B-12) 1,000 mcg tab Take 1 tablet by mouth once daily. - cholecalciferol, Vitamin D3, (VITAMIN D3) 1,250 mcg (50,000 unit) cap capsule Take 1 capsule by mouth one time a week. - albuterol HFA (PROAIR HFA) 90 mcg/actuation inhaler Inhale 2 Puffs as instructed every 4 hours as needed. - albuterol (PROVENTIL) 2.5 mg /3 mL (0.083 %) nebulizer solution Use 3 mL via nebulizer every 4 hours as needed for wheezing/shortness of breath. Use over 5-15minutes. Problem List As Of Date 06/27/2024 Noted Resolved Uncomplicated asthma [J45.909] 10/20/2006 Severe persistent asthma without complication [*07/22/2018 Allergic rhinitis, unspecified [J30.9] 07/22/2018 Smoker [F17.200] 07/22/2018 Vitamin D deficiency [E55.9] Prescriptions ordered this encounter Disp Refills Start End CHOLECALCIFEROL (VITAMIN D3) 1,250 M* 12 c* 0 06/27/2024 09/25/2024 Route: ORAL Sig: Take 1 capsule by mouth one time a week. CYANOCOBALAMIN (VIT B-12) 1,000 MCG * 90 t* 1 07/04/2024 12/31/2024 Route: ORAL Sig: Take 1 tablet by mouth once daily. Encounter Status:Closed by MING WEN on 07/04/24 [facility] 25(OH)D3 Ana Laura 2023 25-hydroxyvitamin D3 [Mass/Vol] 7.3 ng/mL Low 31.0-80.0 [facility] Comment on above: Order Comment: Speci men Type: BLOOD SPECIMENOrdering Facility: [facility] Address: [address] [place] [address] Result Comment: Clas sification of 25 OH Vitamin D status: Deficiency/Insufficiency: < or = 30 ng/ml. Sufficiency/Optimal Levels: 31-80 ng/mL Toxicity: > 100 ng/mL. Test performed by chemiluminescent immunoassay. Performed By: #### 1 989-3 ####[facility] LABCLIA [id number] [facility] [id number] [place] [address] [place] CBC W Auto Differential pane l (Bld)on 06-26-2024 Basophils (Bld) [#/Vol] 0.05 10*3/uL [facility] Basophils/100 WBC (Bld) 0.8 % [facility] Differential cell count method Nom (Bld) Auto [facility] Eosinophils (Bld) [#/Vol] 0.13 10*3/uL [facility] Eosinophils/100 WBC (Bld) 2.1 % [facility] Erythrocyte distribution width (RBC) [Ratio] 12.9 % 11.5 - 15.0 % [facility] Hematocrit (Bld) [Volume fraction] 46.2 % 39.0 - 51.0 % [facility] Hemoglobin (Bld) [Mass/Vol] 15.4 g/dL 13.0 - 17.0 g/dL [facility] Immature granulocytes (Bld) [#/Vol] [facility] Immature granulocytes/100 WBC (Bld) 0.2 % [facility] Lymphocytes (Bld) [#/Vol] 3.19 10*3/uL [facility] Lymphocytes/100 WBC (Bld) 52.0 % [facility] MCH (RBC) [Entitic mass] 31.4 pg 26.0 - 34.0 pg [facility] MCHC (RBC) [Mass/Vol] 33.3 g/dL 30.5 - 36.0 g/dL [facility] MCV (RBC) [Entitic vol] 94.3 fL 80.0 - 100.0 fL [facility] Monocytes (Bld) [#/Vol] 0.43 10*3/uL NINF [facility] Monocytes/100 WBC (Bld) 7.0 % [facility] Neutrophils (Bld) [#/Vol] 2.33 10*3/uL [facility] Neutrophils/100 WBC (Bld) 37.9 % [facility] Nucleated RBC (Bld) [#/Vol] NINF [facility] Nucleated RBC/100 WBC (Bld) [Ratio] 0.0 % /100 WBC [facility] Platelet mean volume (Bld) [Entitic vol] 10.3 fL 9.0 - 12.7 fL [facility] Platelets (Bld) [#/Vol] 229 10*3/uL [facility] RBC (Bld) [#/Vol] 4.90 10*6/uL 4.20 - 6.0 0 m/uL [facility] WBC (Bld) [#/Vol] 6.14 10*3/uL [facility] Basophils (Bld) [#/Vol] 0.05 10*3/uL Normal <0.11 [facility] Comment on above: Order Comment: Speci men Type: BLOOD SPECIMENOrdering Facility: [facility] Address: [address] [place] [address] Performed By: #### 5 7021-8 ####[facility] LABIA [id number] [place] [address] [place] Basophils/100 WBC (Bld) 0.8 % Normal [facility] Comment on above: Order Comment: Speci men Type: BLOOD SPECIMENOrdering Facility: [facility] Address: [address] [place] [address] Performed By: #### 5 7021-8 ####[facility] LABCLIA [id number] [place] [address] [place] Differential cell count method Nom (Bld) Auto Normal [facility] Comment on above: Order Comment: Speci men Type: BLOOD SPECIMENOrdering Facility: [facility] Address: [address] [place] [address] Performed By: #### 5 7021-8 ####[facility] LABCLIA [id number] [place] [address] [place] Eosinophils (Bld) [#/Vol] 0.13 10*3/uL Normal <0.46 [facility] Comment on above: Order Comment: Speci men Type: BLOOD SPECIMENOrdering Facility: [facility] Address: [address] [place] [address] Performed By: #### 5 7021-8 ####[facility] LABCLIA [id number] [place] [address] [place] Eosinophils/100 WBC (Bld) 2.1 % Normal [facility] Comment on above: Order Comment: Speci men Type: BLOOD SPECIMENOrdering Facility: [facility] Address: [address] [place] [address] Performed By: #### 5 7021-8 ####[facility] LABCLIA [id number] [place] [address] [place] Erythrocyte distribution width (RBC) [Ratio] 12.9 % Normal 11.5-15.0 [facility] Comment on above: Order Comment: Speci men Type: BLOOD SPECIMENOrdering Facility: [facility] Address: [address] [place] [address] Performed By: #### 5 7021-8 ####[facility] LABCLIA [id number] [place] [address] [place] Hematocrit (Bld) [Volume fraction] 46.2 % Normal 39.0-51.0 [facility] Comment on above: Order Comment: Speci men Type: BLOOD SPECIMENOrdering Facility: [facility] Address: [address] [place] [address] Performed By: #### 5 7021-8 ####[facility] LABCLIA [id number] [place] [address] [place] Hemoglobin (Bld) [Mass/Vol] 15.4 g/dL Normal 13.0-17.0 [facility] Comment on above: Order Comment: Speci men Type: BLOOD SPECIMENOrdering Facility: [facility] Address: [address] [place] [address] Performed By: #### 5 7021-8 ####[facility] LABCLIA [id number] [place] [address] [place] Immature granulocytes (Bld) [#/Vol] 10*3/uL Normal <0.10 [facility] Comment on above: Order Comment: Speci men Type: BLOOD SPECIMENOrdering Facility: [facility] Address: [address] [place] [address] Performed By: #### 5 7021-8 ####[facility] LABCLIA [id number] [place] [address] [place] Immature granulocytes/100 WBC (Bld) 0.2 % Normal [facility] Comment on above: Order Comment: Speci men Type: BLOOD SPECIMENOrdering Facility: [facility] Address: [address] [place] [address] Performed By: #### 5 7021-8 ####[facility] LABCLIA [id number] [place] [address] [place] Lymphocytes (Bld) [#/Vol] 3.19 10*3/uL Normal 1.00-4.00 [facility] Comment on above: Order Comment: Speci men Type: BLOOD SPECIMENOrdering Facility: [facility] Address: [address] [place] [address] Performed By: #### 5 7021-8 ####[facility] LABCLIA [id number] [place] [address] [place] Lymphocytes/100 WBC (Bld) 52.0 % Normal [facility] Comment on above: Order Comment: Speci men Type: BLOOD SPECIMENOrdering Facility: [facility] Address: [address] [place] [address] Performed By: #### 5 7021-8 ####[facility] [id number] [place] [address] [place] MCH (RBC) [Entitic mass] 31.4 pg Normal 26.0-34.0 [facility] Comment on above: Order Comment: Speci men Type: BLOOD SPECIMENOrdering Facility: [facility] Address: [address] [place] [address] Performed By: #### 5 7021-8 ####[facility] [id number] [place] [address] [place] MCHC (RBC) [Mass/Vol] 33.3 g/dL Normal 30.5-36.0 [facility] Comment on above: Order Comment: Speci men Type: BLOOD SPECIMENOrdering Facility: [facility] Address: [address] [place] [address] Performed By: #### 5 7021-8 ####[facility] [id number] [place] [address] [place] MCV (RBC) [Entitic vol] 94.3 fL Normal 80.0-100.0 [facility] Comment on above: Order Comment: Speci men Type: BLOOD SPECIMENOrdering Facility: [facility] Address: [address] [place] [address] Performed By: #### 5 7021-8 ####[facility] [id number] [place] [address] [place] Monocytes (Bld) [#/Vol] 0.43 10*3/uL Normal <0.87 [facility] Comment on above: Order Comment: Speci men Type: BLOOD SPECIMENOrdering Facility: [facility] Address: [address] [place] [address] Performed By: #### 5 7021-8 ####[facility] [id number] [id number], [place] [address] [place] Monocytes/100 WBC (Bld) 7.0 % Normal [facility] Comment on above: Order Comment: Speci men Type: BLOOD SPECIMENOrdering Facility: [facility] Address: [address] [place] [address] Performed By: #### 5 7021-8 ####[facility] LABCLIA [id number] [place] [address] [place] Neutrophils (Bld) [#/Vol] 2.33 10*3/uL Normal 1.45-7.50 [facility] Comment on above: Order Comment: Speci men Type: BLOOD SPECIMENOrdering Facility: [facility] Address: [address] [place] [address] Performed By: #### 5 7021-8 ####[facility] LABCLIA [id number] [place] [address] [place] Neutrophils/100 WBC (Bld) 37.9 % Normal [facility] Comment on above: Order Comment: Speci men Type: BLOOD SPECIMENOrdering Facility: [facility] Address: [address] [place] [address] Performed By: #### 5 7021-8 ####[facility] LABCLIA [id number] [place] [address] [place] Nucleated RBC (Bld) [#/Vol] 10*3/uL Normal <0.01 [facility] Comment on above: Order Comment: Speci men Type: BLOOD SPECIMENOrdering Facility: [facility] Address: [address] [place] [address] Performed By: #### 5 7021-8 ####[facility] LABCLIA [id number] [place] [address] [place] Nucleated RBC/100 WBC (Bld) [Ratio] 0.0 /100 WBC Normal [facility] Comment on above: Order Comment: Speci men Type: BLOOD SPECIMENOrdering Facility: [facility] Address: [address] [place] [address] Performed By: #### 5 7021-8 ####[facility] LABCLIA [id number] [place] [address] [place] Platelet mean volume (Bld) [Entitic vol] 10.3 fL Normal 9.0-12.7 [facility] Comment on above: Order Comment: Speci men Type: BLOOD SPECIMENOrdering Facility: [facility] Address: [address] [place] [address] Performed By: #### 5 7021-8 ####[facility] LABIA [id number] [place] [address] [place] Platelets (Bld) [#/Vol] 229 10*3/uL Normal 150-400 [facility] Comment on above: Order Comment: Speci men Type: BLOOD SPECIMENOrdering Facility: [facility] Address: [address] [place] [address] Performed By: #### 5 7021-8 ####[facility] LABCLIA [id number] [place] [address] [place] RBC (Bld) [#/Vol] 4.90 10*6/uL Normal 4.20-6.00 [facility] Comment on above: Order Comment: Speci men Type: BLOOD SPECIMENOrdering Facility: [facility] Address: [address] [place] [address] Performed By: #### 5 7021-8 ####[facility] LABCLIA [id number] [place] [address] [place] WBC (Bld) [#/Vol] 6.14 10*3/uL Normal 3.70-11.00 [facility] Comment on above: Order Comment: Speci men Type: BLOOD SPECIMENOrdering Facility: [facility] Address: [address] [place] [address] Performed By: #### 5 7021-8 ####[facility] LABCLIA [id number] [place] [address] [address] [place] CNOVon 06-26-2024 CNOV Office Visit (FAMPWS ) GORDON ADDISON ([id number]) 1995 M Date Time Provider Department 06/26/24 12:20 PM [facility] During your visit today, we recorded the following information about you: Pulse Respiration Blood pressure Weight 87/minute 16/minute 116/66 52.3 kg Height 1.656 m Daryn Gtz MD 06/26/2024 2:52 PM Signed Chief Complaint Patient presents with: Establish Care HPI Gordon Rodriguez Azael is a 29 year old male who presents here today for Above Complaints. Accompanied today by mother. 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 We discussed possible tension headache at last OV on 05/11 and patient returned to [facility] ER on 05/13 for same complaint with negative CT brain. Did follow up with neurology on 05/15 who recommended he start amitriptyline for possible migraine prevention. Today, states that he has not had any recurrent headaches since his CT scan. Thinks it could have been related to TMJ which has resolved. History of asthma which used to be managed by Dr. Gomez's office with last OV in 2018. Patient only has albuterol inhaler at home which he needs less than 1 time weekly. Has nebulizer at home as well. Rx up to date. Denies cough, wheezing, SOB. Last PFT was around 2018. Patient has history of anxiety and bipolar disorder. States that he has appointment to establish with psychiatry on 07/17. Does see counseling at 180 every 2 weeks. Has not been on medication in the past. Mother notes that he does get bad mood swings. Last manic episode was 1 month ago. Denies feeling depressed or anxious today. Denies SI/HI or history of suicide attempt. 06/26/2024 1256 Last Filed Value PHQ-9 Little interest or pleasure in doing things More than half the days More than half the days Feeling down, depressed, or hopeless Several days Several days Trouble falling or staying asleep, or sleeping too much Several days Several days Feeling tired or having little energy Several days Several days Poor appetite or overeating Not at all Not at all Feeling bad about yourself - or that you are a failure or have let yourself or your family down Not at all Not at all Trouble concentrating on things, such as reading the newspaper or watching television Not at all Not at all Moving or speaking so slowly that other people could have noticed. Or the opposite - being so fidgety or restless that you have been moving around a lot more than usual Not at all Not at all Thoughts that you would be better off , or of hurting yourself in some way Not at all Not at all If you checked off any problems, how difficult have these problems made it for you to do your work, take care of things at home, or get along with other people? -- -- PHQ-9 score 5 5 PHQ-9 Score 5 5 PHQ-2 score 3 3 PHQ-2 Score 3 3 06/26/2024 1256 Last Filed Value TERI-7 - over the last 2 weeks... Feeling nervous, anxious, or on edge Not at all Not at all Not being able to stop or control worrying Several days Several days Worrying too much about different things More than half the days More than half the days Trouble relaxing More than half the days More than half the days Being so restless that it is hard to sit still Several days Several days Becoming easily annoyed or irritable More than half the days More than half the days Feeling afraid, as if something awful might happen Nearly Everyday Nearly Everyday How difficult to do work, care for home, get along with people -- -- TERI-2 Total Score 1 1 TERI-7 Total Score 11 11 TERI-7 Score 11 11 Smokes 3/4 pack for the last 16 years. Not ready to quit today. Refusing all vaccinations today. Past medical history, appointments, medications, allergies reviewed. Previous Medical History PAST MEDICAL HISTORY Diagnosis Date Allergic rhinitis, unspecified 07/22/[address] Gomez Black hairy tongue Headache NEGATIVE MEDICAL HISTORY normal color vision PMH - PAST MEDICAL HISTORY OF spinal meningitis at 12 months Smoker 07/22/2018 Tobacco use disorder Previous Surgical History PAST SURGICAL HISTORY Procedure Laterality Date CIRCUMCISION,CLAMP,NEW BORN Family History FAMILY HISTORY Problem Relation Age of Onset Stroke Mother Patient Allergies ALLERGIES Allergen Reactions Cats Shortness of Breath Patient reported allergy on 05/11/24 Penicillins Hives Eggs [Egg] Rash Current Medications Current Outpatient Medications on File Prior to Visit Medication Sig acetic acid (VOSOL) 2 % otic solution Use 4 Drops in the left ear three times daily. (Patient not taking: Reported on 12/10/2022) cetirizine (ZYRTEC) 10 mg tablet Take 1 tablet by mouth once daily. (Patient not taking: Reported on 07/02/2023) albuterol (PROVENTIL) 2.5 mg /3 mL (0.083 %) nebulizer solution Use 3 mL via nebulizer every 4 hours as nee (more content not included)... Normal [facility] Comprehensive metabolic 2000 panelon 06-26-2024 Albumin [Mass/Vol] 4.7 g/dL Normal 3.9-4.9 [facility] Comment on above: Order Comment: Speci men Type: BLOOD SPECIMENOrdering Facility: [facility] Address: [address] [place] [address] Performed By: #### 2 4323-8, 2132-06, WENDY, 6-3 ####[facility] LABIA [id number] [place] [address] [place] ALP [Catalytic activity/Vol] 67 U/L Normal 38-113 [facility] Comment on above: Order Comment: Speci men Type: BLOOD SPECIMENOrdering Facility: [facility] Address: [address] [place] [address] Performed By: #### 2 4323-8, 9, WENDY, 6-3 ####[facility] LABCLIA [id number] [place] [address] [place] ALT [Catalytic activity/Vol] 17 U/L Normal 10-54 [facility] Comment on above: Order Comment: Speci men Type: BLOOD SPECIMENOrdering Facility: [facility] Address: [address] [place] [address] Performed By: #### 2 4323-8, 2132-06, LIPNF, 6-3 ####[facility] LABCLIA [id number] [place] [address] [place] Anion gap [Moles/Vol] 11 mmol/L Normal 8-15 [facility] Comment on above: Order Comment: Speci men Type: BLOOD SPECIMENOrdering Facility: [facility] Address: [address] [place] [address] Performed By: #### 2 4323-8, 2132-06, LIPNF, 3015-3 ####[facility] LABCLIA [id number] [place] [address] [place] AST [Catalytic activity/Vol] 22 U/L Normal 14-40 [facility] Comment on above: Order Comment: Speci men Type: BLOOD SPECIMENOrdering Facility: [facility] Address: [address] [place] [address] Performed By: #### 2 4323-8, 2132-06, LIPNF, 6-3 ####[facility] LABCLIA [id number] [place] [address] [place] Bilirubin [Mass/Vol] 0.4 mg/dL Normal 0.2-1.3 [facility] Comment on above: Order Comment: Speci men Type: BLOOD SPECIMENOrdering Facility: [facility] Address: [address] [place] [address] Performed By: #### 2 4323-8, 9, LIPNF, 6-3 ####[facility] LABCLIA [id number] [place] [address] [place] Calcium [Mass/Vol] 9.9 mg/dL Normal 8.5-10.2 [facility] Comment on above: Order Comment: Speci men Type: BLOOD SPECIMENOrdering Facility: [facility] Address: [address] [place] [address] Performed By: #### 2 4323-8, 9, LIPNF, 6-3 ####[facility] LABCLIA [id number] [place] [address] [place] Chloride [Moles/Vol] 103 mmol/L Normal 98-107 [facility] Comment on above: Order Comment: Speci men Type: BLOOD SPECIMENOrdering Facility: [facility] Address: [address] [place] [address] Performed By: #### 2 4323-8, 9, LIPNF, 6-3 ####[facility] LABIA [id number] [place] [address] [place] CO2 [Moles/Vol] 28 mmol/L Normal 22-30 [facility] Comment on above: Order Comment: Speci men Type: BLOOD SPECIMENOrdering Facility: [facility] Address: [address] [place] [address] Performed By: #### 2 4323-8, 9, LIPNF, 6-3 ####[facility] LABIA [id number] [place] [address] [place] Creatinine [Mass/Vol] 0.80 mg/dL Normal 0.73-1.22 [facility] Comment on above: Order Comment: Speci men Type: BLOOD SPECIMENOrdering Facility: [facility] Address: [address] [place] [address] Performed By: #### 2 4323-8, 9, LIPNF, 6-3 ####[facility] LABIA [id number] [place] [address] [place] Creatinine and Glomerular filtration rate.predicted panel (S/P/Bld) 123 mL/min/1.73m??? Normal >=60 [facility] Comment on above: Order Comment: Speci men Type: BLOOD SPECIMENOrdering Facility: [facility] Address: [facility] [place] [id number] Result Comment: Davida mated Glomerular Filtration Rate (eGFR) is calculated using the 2020 CKD-EPI creatinine equation. This equation utilizes serum creatinine, sex, and age as parameters. The creatinine assay has traceable calibration to isotope dilution-mass spectrometry. Refer to KDIGO guidelines for clinical interpretation. In patients with unstable renal function, e.g. those with acute kidney injury, the eGFR may not accurately reflect actual GFR. Performed By: #### 2 4323-8, 2132-06, WENDY, 3015-3 ####[facility] LABCLIA [id number] [place] [id number] [place] Glucose [Mass/Vol] 77 mg/dL Normal 74-99 [facility] Comment on above: Order Comment: Mervat reeder Type: BLOOD SPECIMENOrdering Facility: [facility] Address: [address] [place] [address] Result Comment: The [place] Diabetes Association (ADA) provides guidance for cutoff values for fasting glucose and random glucose. The ADA defines fasting as no caloric intake for at least 8 hours. Fasting plasma glucose results between 100 to 125 mg/dL indicate increased risk for diabetes (prediabetes). Fasting plasma glucose results greater than or equal to 126 mg/dL meet the criteria for diagnosis of diabetes. In the absence of unequivocal hyperglycemia, results should be confirmed by repeat testing. In a patient with classic symptoms of hyperglycemia or hyperglycemic crisis, random plasma glucose results greater than or equal to 200 mg/dL meet the criteria for diagnosis of diabetes. Reference: Standards of Medical Care in Diabetes 2016, [place] [employer] Association. Diabetes Care. 2016.39(Suppl 1). Performed By: #### 2 4323-8, 9, WENDY, 6-3 ####[facility] LABIA [id number] [address] [address] [place] Potassium [Moles/Vol] 4.4 mmol/L Normal 3.7-5.1 [facility] Comment on above: Order Comment: Speci men Type: BLOOD SPECIMENOrdering Facility: [facility] Address: [address] [place] [id number] Performed By: #### 2 4323-8, 9, LIPNF, 3016-3 ####[facility] LABCLIA [id number] [address] [address] [place] Protein [Mass/Vol] 7.5 g/dL Normal 6.3-8.0 [facility] Comment on above: Order Comment: Speci men Type: BLOOD SPECIMENOrdering Facility: [facility] Address: [address] [place] [address] Performed By: #### 2 4323-8, 9, LIPNF, 3016-3 ####[facility] LABIA [id number] [place] [address] [place] Sodium [Moles/Vol] 142 mmol/L Normal 136-144 [facility] Comment on above: Order Comment: Speci men Type: BLOOD SPECIMENOrdering Facility: [facility] Address: [address] [place] [address] Performed By: #### 2 4323-8, 9, LIPNF, 3016-3 ####[facility] LABIA [id number] [place] [address] [place] Urea nitrogen [Mass/Vol] 7 mg/dL Low 9-24 [facility] Comment on above: Order Comment: Speci men Type: BLOOD SPECIMENOrdering Facility: [facility] Address: [address] [place] [address] Performed By: #### 2 4323-8, 9, LIPNF, 3016-3 ####[facility] LABIA [id number] [place] [id number] [place] LIPID PANEL, NONFASTINGon Cholesterol [Mass/Vol] 153 mg/dL Normal <200 [facility] Comment on above: Order Comment: Speci men Type: BLOOD SPECIMENOrdering Facility: [facility] Address: [address] [place] [address] Result Comment: <200 mg/dL, Desirable 200-239 mg/dL, Borderline high >239 mg/dL, High Performed By: #### 2 4323-8, 2132-06, LIPNF, 3016-3 ####[facility] LABCLIA [id number] [place] [address] [place] HDL CHOLESTEROL, NF 30 mg/dL Low >39 [facility] Comment on above: Order Comment: Speci men Type: BLOOD SPECIMENOrdering Facility: [facility] Address: [address] [place] [address] Result Comment: 40-5 9 mg/dL, Acceptable >59 mg/dL, High: Negative risk factor for coronary heart disease <40 mg/dL, Low: Positive risk factor for coronary heart disease Performed By: #### 2 4323-8, 2132-06, LIPNF, 6-3 ####[facility] LABCLIA [id number] [place] [address] [place] LDL CHOLESTEROL, NF 93 mg/dL Normal <100 [facility] Comment on above: Order Comment: Speci men Type: BLOOD SPECIMENOrdering Facility: [facility] Address: [address] [place] [address] Result Comment: <100 mg/dL, Optimal 100-129 mg/dL, Near optimal/above optimal 130-159 mg/dL, Borderline high 160-189 mg/dL, High >189 mg/dL, Very high Secondary prevention optimal LDL Cholesterol levels are recommended to be < 70 mg/dL Performed By: #### 2 4323-8, 2132-06, LIPNF, 3016-3 ####[facility] LABCLIA [id number] [place] [address] [place] LDL/HDL RATIO, NF 3.10 mg/dL High <2.54 [facility] Comment on above: Order Comment: Speci men Type: BLOOD SPECIMENOrdering Facility: [facility] Address: [address] [place] [address] Result Comment: Refe rence: 1. National Cholesterol Education Program ATP III Guideline At-A-Glance Quick Desk Reference: National Heart, Lung, and Blood [place]. National Institutes of Health. 2001: NIH Publication No. 01-3305. 2. An International Atherosclerosis Society position paper: global recommendations for the management of dyslipidemia: executive summary, Atherosclerosis. 2014: 232(2):410-413. Performed By: #### 2 4323-8, 2131-9, LIPNF, 3016-3 ####[facility] LABCLIA [id number] [place] [address] [place] NON HDL CHOL, NF 123 mg/dL Normal <130 [facility] Comment on above: Order Comment: Speci men Type: BLOOD SPECIMENOrdering Facility: [facility] Address: [address] [place] [address] Result Comment: <130 mg/dL, Optimal 130-159 mg/dL, Near optimal/above optimal 160-189 mg/dL, Borderline high 190-219 mg/dL, High >219 mg/dL, Very high Secondary prevention optimal non HDL Cholesterol levels are recommended to be <100 mg/dL Performed By: #### 2 4323-8, 9, LIPNF, 3016-3 ####[facility] LABCLIA [id number] [place] [address] [place] T CHOL/HDL RATIO NF 5.10 mg/dL High <5.10 [facility] Comment on above: Order Comment: Speci men Type: BLOOD SPECIMENOrdering Facility: [facility] Address: [address] [place] [address] Performed By: #### 2 4323-8, 9, LIPNF, 3016-3 ####[facility] LABCLIA [id number] [place] [address] [place] TRIGLYCERIDES, NF 149 mg/dL Normal <150 [facility] Comment on above: Order Comment: Speci men Type: BLOOD SPECIMENOrdering Facility: [facility] Address: [address], [place] [address] Result Comment: <150 mg/dL, Normal 150-199 mg/dL, Borderline high 200-499 mg/dL, High >499 mg/dL, Very high Performed By: #### 2 3-8, 2132-06, LIPFRANKIE, 3015-3 ####[facility] LABCLIA [id number] [place] [address] [place] VLDL CHOLESTEROL, NF 30 mg/dL High <30 [facility] Comment on above: Order Comment: Speci men Type: BLOOD SPECIMENOrdering Facility: [facility] Address: [address] [place] [address] Performed By: #### 2 4328, 2132-06, WENDY, 3015-3 ####[facility] LABCLIA [id number] [place] [address] [place] TSH SerPl-aCncon 06-26-2024 TSH Qn 2.440 m[IU]/L Normal 0.270-4.200 [facility] Comment on above: Order Comment: Speci men Type: BLOOD SPECIMENOrdering Facility: [facility] Address: [address] [place] [address] Performed By: #### 2 432-8, 2132-06, WENDY, 3015-3 ####[facility] LABCLIA [id number] [place] [address] [place] Vit B12 SerPl-mCncon 024 Cobalamin (Vitamin B12) [Mass/Vol] 200 pg/mL Low 232-1245 [facility] Comment on above: Order Comment: Speci men Type: BLOOD SPECIMENOrdering Facility: [facility] Address: [address] [place] [address] Performed By: #### 2 4323-8, 2132-06, WENDY, 3015-3 ####[facility] LABCLIA [id number] [place] [address] [place] CNOVon 05-11-2024 CNOV Office Visit (FAMPWS ) GORDON ADDISON ([id number]) 1995 M Date Time Provider Department 05/11/24 11:00 AM [facility] During your visit today, we recorded the following information about you: Temperature Pulse Respiration Blood pressure 97.6 degrees 131/minute 16/minute 130/64 Weight 52.6 kg Daryn Gtz MD 05/11/2024 12:35 PM Signed Chief Complaint Patient presents with: ER F/U: Post concussion- looking for 2nd opinion HPI Gordon Addison is a 28 year old male who presents here today for new limited ER follow up. Accompanied today by his mother Lakeshia. Patient evaluated at [facility] ED on 05/06, 05/08, 05/09, and 05/10 for complaint of headache with changing history. Initially reported fatigue and headache and was concerned for COVID infection, but rapid testing was negative. Denied history of trauma or migraine on 05/06. Worsening headache on 05/08 and denied trauma. Given IV fluids, Toradol, Reglan and Bendryl which significantly improved symptoms and was discharged home. On 05/09 he complained of left sided parietal headache and now noted head trauma. Without LOC, sammarinese CT head rule did not indicate imaging. Given work excuse and discussed treatment for headache at home and that he might have symptoms for 4-6 weeks. On 05/10, again reported that he had hit his head on low celing at home about 1 week prior without LOC. No imaging was performed at this visit and patient was reassured. Given information for neurology and discharged home. Patient states that he had recurrence of his headache, but this time was located over his forehead. Described as pressure sensation, up to 5/10, without radiation. Denies nausea, vomiting, vision changes, photophobia, phonophobia, nasal congestion, rhinorrhea, sinus pressure. Treated with tylenol and pain has resolved. He reports that he injured his head 1-2 weeks ago when he was walking up the stairs and when he turned he hit his head on a cupboard. Did not have LOC with this injury. Denies swelling or bruising over the area. No loss of memory around this event. He is not on blood thinners at this time. Patient states that he does have an appointment with neurology in [place] in 5 days. Past medical history, appointments, medications, allergies reviewed. Previous Medical History PAST MEDICAL HISTORY 07/22/2018: Allergic rhinitis, unspecified No date: NEGATIVE MEDICAL HISTORY Comment: normal color vision No date: PMH - PAST MEDICAL HISTORY OF Comment: spinal meningitis at 12 months No date: PM - PAST MEDICAL HISTORY OF Comment: asthma 07/22/2018: Severe persistent asthma without complication Comment: Seeing Dr. Gomez Pulmonary. 07/22/2018: Smoker Previous Surgical History PAST SURGICAL HISTORY No date: CIRCUMCISION,CLAMP,NEW BORN Family History FAMILY HISTORY Problem Relation Age of Onset Stroke Mother Patient Allergies ALLERGIES Allergen Reactions Cats Shortness of Breath Patient reported allergy on 05/11/24 Penicillins Hives Eggs [Egg] Rash Current Medications Current Outpatient Medications on File Prior to Visit Medication Sig acetic acid (VOSOL) 2 % otic solution Use 4 Drops in the left ear three times daily. (Patient not taking: Reported on 12/10/2022) cetirizine (ZYRTEC) 10 mg tablet Take 1 tablet by mouth once daily. (Patient not taking: Reported on 07/02/2023) albuterol (PROVENTIL) 2.5 mg /3 mL (0.083 %) nebulizer solution Use 3 mL via nebulizer every 4 hours as needed for wheezing/shortness of breath. Use over 5-15minutes. (Patient not taking: Reported on 07/02/2023) albuterol HFA (PROAIR HFA) 90 mcg/actuation inhaler Inhale 2 Puffs as instructed every 4 hours as needed. (Patient not taking: Reported on 07/02/2023) No current facility-administered medications on file prior to visit. Social History Social History Tobacco Use Smoking status: Every Day Packs/day: .5 Types: Cigarettes Smokeless tobacco: Never Tobacco comments: mother smokes Vaping Use Vaping Use: Former Substance Use Topics Alcohol use: Never Drug use: Never Review of Symptoms REVIEW OF SYSTEMS GENERAL: No weight loss, malaise or fevers RESPIRATORY: Negative for cough, hemoptysis, wheezing, COPD, dyspnea or shortness of breath CARDIOVASCULAR: Negative for chest pain, leg swelling, hypertension, CHF or palpitations GI: No nausea, vomiting, or diarrhea SKIN: Negative for lesions, rash, and itching EXAM: BP 130/64 Pulse (!) 131 Temp 36.4 ?C (97.6 ?F) Resp 16 Wt 52.6 kg (115 lb 15.4 oz) SpO2 97% General Appearance: Well appearing, alert, in no acute distress, well-hydrated, well nourished.. Skin: Skin color, texture, turgor normal, no suspicious rashes or lesions. Head: Normocephalic, no masses, lesions, tenderness or abnormalities. Nose/sinuses: non tender to palpation over sinuses and forehe (more content not included)... Normal [facility] ECG COMPLETEon 05-11-2024 ECG COMPLETE Ventricular Rate : 1 05 BPM Atrial Rate : 105 BPM P-R Interval : 120 ms QRS Duration : 82 ms Q-T Interval : 328 ms QTC Calculation(Bazett) : 433 ms Calculated P Swan : 83 degrees Calculated R Swan : 78 degrees Calculated T Swan : 66 degrees SINUS TACHYCARDIA RIGHT ATRIAL ENLARGEMENT BORDERLINE ECG Confirmed by MD LUONG GREGORY () on 05/12/2024 11:37:15 AM NAME : GORDON ADDISON PID : [id number] : 1995 Gender : Male Race : ORD : [id number] Procedure Date : May 11 2024 11:57:58 Edit Date : May 12 2024 11:37:22 Diagnosis: SINUS TACHYCARDIA RIGHT ATRIAL ENLARGEMENT BORDERLINE ECG Confirmed by MD LUONG GREGORY () on 05/12/2024 11:37:15 AM Test Reason : R00.0 Tachycardia Location : 185 : 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 Duration of symptoms 6 days. Associated symptoms cough shortness of breath at times. Was seen in the ED on Wednesday. Diagnosed with asthma. Sent home with inhaler no steroids. Presents today for evaluation. States cough is bothersome if he uses his rescue inhaler this does improve for short amount of time. Was seen pulmonology for severe persistent asthma has not seen them in quite some time. Denies any productive cough hemoptysis fever body aches chills nausea vomiting abdominal pain or change in bowel or bladder habits. Denies any recent hospitalizations due to asthma. Past medical history prescription medications allergies reviewed. .Patient presents with: Asthma PAST MEDICAL HISTORY Diagnosis Date Allergic rhinitis, unspecified 07/22/2018 NEGATIVE MEDICAL HISTORY normal color vision PMH - PAST MEDICAL HISTORY OF spinal meningitis at 12 months PMH - PAST MEDICAL HISTORY OF asthma Severe persistent asthma without complication 07/22/[address] Gomez Pulmonary. Smoker 07/22/2018 PAST SURGICAL HISTORY Procedure Laterality Date CIRCUMCISION,CLAMP,NEW BORN ALLERGIES Penicillins and Eggs [Egg] MEDICATIONS acetic acid (VOSOL) 2 % otic solution Use 4 Drops in the left ear three times daily. (Patient not taking: Reported on 12/10/2022) cetirizine (ZYRTEC) 10 mg tablet Take 1 tablet by mouth once daily. (Patient not taking: Reported on 07/02/2023) albuterol (PROVENTIL) 2.5 mg /3 mL (0.083 %) nebulizer solution Use 3 mL via nebulizer every 4 hours as needed for wheezing/shortness of breath. Use over 5-15minutes. (Patient not taking: Reported on 07/02/2023) albuterol HFA (PROAIR HFA) 90 mcg/actuation inhaler Inhale 2 Puffs as instructed every 4 hours as needed. (Patient not taking: Reported on 07/02/2023) FAMILY HISTORY Problem Relation Age of Onset Stroke Mother Social History Tobacco Use Smoking status: Every Day Packs/day: .5 Types: Cigarettes Smokeless tobacco: Never Tobacco comments: mother smokes Vaping Use Vaping Use: Former Substance Use Topics Alcohol use: Never Drug use: Never BP 122/72 Pulse 89 Temp 36.9 ?C (98.4 ?F) Resp 18 Wt 48.4 kg (106 lb 11.2 oz) SpO2 100% Review of Systems Constitutional: Negative for chills, fever and malaise/fatigue. HENT: Positive for congestion. Negative for ear discharge, ear pain, sinus pain and sore throat. Eyes: Negative for blurred vision, pain, discharge and redness. Respiratory: Positive for cough and shortness of breath. Negative for hemoptysis, sputum production, wheezing and stridor. Cardiovascular: Negative for chest pain. Gastrointestinal: Negative for abdominal pain, diarrhea, nausea and vomiting. Musculoskeletal: Negative for myalgias. Skin: Negative for itching and rash. Neurological: Negative for dizziness and headaches. Objective Physical Exam Constitutional: General: He is not in acute distress. Appearance: He is not diaphoretic. HENT: Head: Normocephalic. Jaw: No trismus, tenderness, swelling or pain on movement. Nose: Congestion present. Mouth/Throat: Mouth: Mucous membranes are moist. Pharynx: Oropharynx is clear. Uvula midline. No pharyngeal swelling, oropharyngeal exudate, posterior oropharyngeal erythema or uvula swelling. Eyes: Conjunctiva/sclera: Conjunctivae normal. Pupils: Pupils are equal, round, and reactive to light. Cardiovascular: Rate and Rhythm: Normal rate and regular rhythm. Heart sounds: Normal heart sounds. Pulmonary: Effort: Pulmonary effort is normal. No tachypnea, accessory muscle usage or respiratory distress. Breath sounds: No stridor. Wheezing present. No rhonchi or rales. Abdominal: General: There is no distension. Palpations: Abdomen is soft. Tenderness: There is no abdominal tenderness. There is no guarding or rebound. Musculoskeletal: Cervical back: Normal range of motion and neck supple. No edema, erythema, rigidity or tenderness. No pain with movement. Normal range of motion. Lymphadenopathy: Cervical: No cervical adenopathy. Skin: General: Skin is warm and dry. Neurological: Mental Status: He is alert and oriented to person, place, and time. ASSESSMENT/PLAN: 1. Moderate persistent asthma with (acute) exacerbation - ICD9: 493.92, ICD10: J45.41 Patient nontoxic-appearing. No respiratory distress noted. Hemodynamically stable. Diagnosis asthma exacer (more content not included)... Normal [facility] CNOVon 12-31-2023 CNOV Office Visit (UCWSTR ) GORDON ADDISON ([id number]) 1995 M Date Time Provider Department 12/31/23 7:30 PM SALLY STEWART [facility] During your visit today, we recorded the following information about you: Temperature Pulse Respiration Blood pressure 97.5 degrees 86/minute 18/minute 117/73 Weight 46 kg Sally Stewart APRN.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 12/31/2023 7:40 PM Signed Subjective HPI Nontoxic-appearing male presents urgent care chief complaint burn. Duration of symptoms 2 days. Associated symptoms grease prieto left hand. Patient states he was cooking gale when some grease splashed up on his fourth digit right hand. Burn is on dorsal aspect between DIP and PIP joint. Has not used any OTC medications. Is not using any dressings. Overall feels well. Denies any fever body aches chills productive cough chest pain shortness of breath pleuritic pain hemoptysis nausea vomiting abdominal pain change in bowel or bladder habits. Past medical history prescription medication use and allergies reviewed. .Patient presents with: Burn: Left hand middle finger burn on gale grease x 2 days ago PAST MEDICAL HISTORY Diagnosis Date Allergic rhinitis, unspecified 07/22/2018 NEGATIVE MEDICAL HISTORY normal color vision PMH - PAST MEDICAL HISTORY OF spinal meningitis at 12 months PMH - PAST MEDICAL HISTORY OF asthma Severe persistent asthma without complication 07/22/[address] Gomez Pulmonary. Smoker 07/22/2018 PAST SURGICAL HISTORY Procedure Laterality Date CIRCUMCISION,CLAMP,NEW BORN ALLERGIES Penicillins and Eggs [Egg] MEDICATIONS acetic acid (VOSOL) 2 % otic solution Use 4 Drops in the left ear three times daily. (Patient not taking: Reported on 12/10/2022) cetirizine (ZYRTEC) 10 mg tablet Take 1 tablet by mouth once daily. (Patient not taking: Reported on 07/02/2023) albuterol (PROVENTIL) 2.5 mg /3 mL (0.083 %) nebulizer solution Use 3 mL via nebulizer every 4 hours as needed for wheezing/shortness of breath. Use over 5-15minutes. (Patient not taking: Reported on 07/02/2023) albuterol HFA (PROAIR HFA) 90 mcg/actuation inhaler Inhale 2 Puffs as instructed every 4 hours as needed. (Patient not taking: Reported on 07/02/2023) FAMILY HISTORY Problem Relation Age of Onset Stroke Mother Social History Tobacco Use Smoking status: Every Day Packs/day: .5 Types: Cigarettes Smokeless tobacco: Never Tobacco comments: mother smokes Vaping Use Vaping Use: Former Substance Use Topics Alcohol use: Never Drug use: Never BP 117/73 Pulse 86 Temp 36.4 ?C (97.5 ?F) Resp 18 Wt 46 kg (101 lb 6.6 oz) SpO2 100% Review of Systems Constitutional: Negative for chills, fever and malaise/fatigue. HENT: Negative for congestion, ear discharge, ear pain, sinus pain and sore throat. Eyes: Negative for blurred vision, pain, discharge and redness. Respiratory: Negative for cough, hemoptysis, sputum production, shortness of breath, wheezing and stridor. Cardiovascular: Negative for chest pain. Gastrointestinal: Negative for abdominal pain, diarrhea, nausea and vomiting. Musculoskeletal: Negative for joint pain and myalgias. Skin: Negative for itching and rash. Neurological: Negative for dizziness and headaches. Objective Physical Exam Constitutional: General: He is not in acute distress. Appearance: He is not toxic-appearing. HENT: Head: Normocephalic. Nose: Nose normal. Eyes: Pupils: Pupils are equal, round, and reactive to light. Cardiovascular: Rate and Rhythm: Normal rate. Pulmonary: Effort: Pulmonary effort is normal. No respiratory distress. Musculoskeletal: Hands: Cervical back: Normal range of motion. Comments: Approximately three-quarter centimeter by three-quarter centimeter superficial partial-thickness burn noted to the highlighted area. Burn does not extend into joint. Neurovascular intact. Full strength. Skin: General: Skin is warm and dry. Neurological: General: No focal deficit present. Mental Status: He is alert. ASSESSMENT/PLAN: 1. Superficial partial thickness burn of digit of hand - ICD9: 944.21, ICD10: T23.229A Diagnosis superficial partial-thickness burn. Will use dressing and antimicrobial red flags reevaluation discussed. Patient was educated on supportive therapies. Patient will follow up with primary care provider as needed. Patient was instructed to immediately proceed to emergency room for any new, worsening, or symptoms lasting longer than anticipated. The patient's clinical presentation is otherwise unremarkable at this time. Based on exam and clinical finding, the patient is stable for discharge. Plan of care was discussed with patient. Patient verbalizes understanding and agrees to plan of care. This note was generated using [employer] software. It may contain errors in wording, punctuation, or spelling. Sally Worthy (more content not included)... Normal [facility] STREP A MOLECULAR (POC)on Procedural Control Valid [facility] Strep A (POCT) Negative Negative [facility] XR Chest PA and Lateralon IMPRESSION: No active disease. Service Learning Coordinator: OTILIO Transcribe Date/Time: Mar 18 2021 5:45P Dictated by : RAMOS MATTA MD This examination was interpreted and the report reviewed and electronically signed by: RAMOS MATTA MD on Mar 18 2021 5:46PM [facility] DIVISION OF RADIOLOGY * * *Final Report* * * DATE OF EXAM: Mar 18 2021 5:44PM WOX [id number] - XR CHEST 2V FRONTAL/LAT / PROCEDURE REASON: Rhonchi * * * * Physician Interpretation * * * * EXAMINATION: CHEST RADIOGRAPH (2 VIEW FRONTAL & LATERAL) CLINICAL HISTORY: Rhonchi MQ: XC2_6 EXAM DATE/TIME: 03/18/2021 5:44 PM COMPARISON: No relevant prior studies available. RESULT: Lines, tubes, and devices: None. Lungs and pleura: No consolidation. No lung mass. No pleural effusion. No pneumothorax. Cardiomediastinal silhouette: Normal cardiomediastinal silhouette. Bones and soft tissues: Unremarkable. DIVISION OF RADIOLOGY Provider, Jim Rivera - 03/18/2021 * * *Final Report* * * DATE OF EXAM: Mar 18 2021 5:44PM WOX [id number] - XR CHEST 2V FRONTAL/LAT / PROCEDURE REASON: Rhonchi * * * * Physician Interpretation * * * * EXAMINATION: CHEST RADIOGRAPH (2 VIEW FRONTAL & LATERAL) CLINICAL HISTORY: Rhonchi MQ: XC2_6 EXAM DATE/TIME: 03/18/2021 5:44 PM COMPARISON: No relevant prior studies available. RESULT: Lines, tubes, and devices: None. Lungs and pleura: No consolidation. No lung mass. No pleural effusion. No pneumothorax. Cardiomediastinal silhouette: Normal cardiomediastinal silhouette. Bones and soft tissues: Unremarkable. IMPRESSION IMPRESSION: No active disease. Service Learning Coordinator: PSCB Transcribe Date/Time: Mar 18 2021 5:45P Dictated by : RAMOS MATTA MD This examination was interpreted and the report reviewed and electronically signed by: RAMOS MATTA MD on Mar 18 2021 5:46PM EST [facility] Radiology Study observation (narrative) [facility] XR Chest PA and LateralOrder ed By: [facility] Provider on 03-18-2021 [facility] Vital Signs Date Time Vital Sign Value Performing Clinician Facility 07-23-2024 10:02-0400 Body mass index (BMI) [Ratio] 18.38 kg/m2 Genevieve Wade APRN.CNP Work Phone: [facility] 07-23-2024 10:02-040 Body temperature 98.6 [degF] Genevieve Wade APRN.CNP Work Phone: [facility] 07-23-2024 10:02-0400 Body weight 50.4 kg Genevieve Wade APRN.CNP Work Phone: [facility] 07-23-2024 10:02-0400 Diastolic blood pressure 75 mm[Hg] Genevieve Wade APRN.CNP Work Phone: [facility] 07-23-2024 10:02-0400 Heart rate 92 /min Genevieve Wade 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 Work Phone: [facility] 07-23-2024 10:02-0400 Respiratory rate 18 /min Genevieve Wade 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 Work Phone: [facility] 07-23-2024 10:02-0400 SaO2% (BldA) [Mass fraction] 100 % Genevieve Wade 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 Work Phone: [facility] 07-23-2024 10:02-0400 Systolic blood pressure 112 mm[Hg] Genevieve Wade 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 Work Phone: [facility] 06-26-2024 12:03-0400 Body height 165.6 cm Daryn Gtz MD Work Phone: [facility] 06-26-2024 12:03-0400 Body mass index (BMI) [Ratio] 19.09 kg/m2 Daryn Gtz MD Work Phone: [facility] 06-26-2024 12:03-0400 Body weight 52.34 kg Daryn Gtz MD Work Phone: [facility] 06-26-2024 12:03-0400 Diastolic blood pressure 66 mm[Hg] Daryn Gtz MD Work Phone: [facility] 06-26-2024 12:03-0400 Heart rate 87 /min Daryn Gtz MD Work Phone: [facility] 06-26-2024 12:03-0400 Respiratory rate 16 /min Daryn Gtz MD Work Phone: [facility] 06-26-2024 12:03-0400 SaO2% (BldA) [Mass fraction] 99 % Daryn Gtz MD Work Phone: [facility] 06-26-2024 12:03-0400 Systolic blood pressure 116 mm[Hg] Daryn Gtz MD Work Phone: [facility] 05-11-2024 10:56-0400 Body temperature 97.59 [degF] Daryn Gtz MD Work Phone: [facility] 05-11-2024 10:56-0400 Body weight 52.6 kg Daryn Gtz MD Work Phone: [facility] 05-11-2024 10:56-0400 Diastolic blood pressure 64 mm[Hg] Daryn Gtz MD Work Phone: [facility] 05-11-2024 10:56-0400 Heart rate 131 /min Daryn Gtz MD Work Phone: [facility] Comment on above: 132 manual 05-11-2024 10:56-0400 Respiratory rate 16 /min Daryn Gtz MD Work Phone: [facility] 05-11-2024 10:56-0400 SaO2% (BldA) [Mass fraction] 97 % Daryn Gtz MD Work Phone: [facility] 05-11-2024 10:56-0400 Systolic blood pressure 130 mm[Hg] Daryn Gtz MD Work Phone: [facility] 01-15-2024 11:57-0400 Body temperature 98.4 [degF] Sally Stewart 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 Work Phone: [facility] 01-15-2024 11:57-0400 Body weight 48.4 kg Sally Stewart 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 Work Phone: [facility] 01-15-2024 11:57-0400 Diastolic blood pressure 72 mm[Hg] Sally Terry 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 Work Phone: [facility] 01-15-2024 11:57-0400 Heart rate 89 /min Sally Stewart 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 Work Phone: [facility] 01-15-2024 11:57-0400 Respiratory rate 18 /min Sally Stewart 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 Work Phone: [facility] 01-15-2024 11:57-0400 SaO2% (BldA) [Mass fraction] 100 % Sally Pendlebury 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 Work Phone: [facility] 01-15-2024 11:57-0400 Systolic blood pressure 122 mm[Hg] Sally Pendlebury 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 Work Phone: [facility] 07-02-2023 17:40-0400 Body temperature 97.39 [degF] Sally Pendlebury 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 Work Phone: [facility] 07-02-2023 17:40-0400 Body weight 45.81 kg Sally Pendlebury 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 Work Phone: [facility] 07-02-2023 17:40-0400 Diastolic blood pressure 78 mm[Hg] Sally Pendlebury 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 Work Phone: [facility] 07-02-2023 17:40-0400 Heart rate 104 /min Sally Pendlebury 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 Work Phone: [facility] 07-02-2023 17:40-0400 Respiratory rate 18 /min Sally Pendlebury 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 Work Phone: [facility] 07-02-2023 17:40-0400 SaO2% (BldA) [Mass fraction] 100 % Sally Pendlebury 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 Work Phone: [facility] 07-02-2023 17:40-0400 Systolic blood pressure 118 mm[Hg] Sally Pendlebury 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 Work Phone: [facility] 12-10-2022 14:43-0500 Body temperature 98.91 [degF] Sally Pendlebury 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 Work Phone: [facility] 12-10-2022 14:43-0500 Body weight 48.08 kg Sally Pendlebury 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 Work Phone: [facility] 12-10-2022 14:43-0500 Diastolic blood pressure 60 mm[Hg] Sally Pendlebury 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 Work Phone: [facility] 12-10-2022 14:43-0500 Heart rate 85 /min Sally Pendlebury 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 Work Phone: [facility] 12-10-2022 14:43-0500 Respiratory rate 16 /min Sally Pendlebury 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 Work Phone: [facility] 12-10-2022 14:43-0500 SaO2% (BldA) [Mass fraction] 98 % Sally Pendlebury 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 Work Phone: [facility] 12-10-2022 14:43-0500 Systolic blood pressure 112 mm[Hg] Sally Pendlebury 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 Work Phone: [facility] 11-12-2022 08:52-0500 Body temperature 98.91 [degF] Melba Praisler-Wood 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 Work Phone: [facility] 11-12-2022 08:52-0500 Body weight 48.17 kg Melba Praisler-Wood 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 Work Phone: [facility] 11-12-2022 08:52-0500 Diastolic blood pressure 60 mm[Hg] Melba Praisler-Wood 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 Work Phone: [facility] 11-12-2022 08:52-0500 Heart rate 118 /min Melba Praisler-Wood 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 Work Phone: [facility] 11-12-2022 08:52-0500 Respiratory rate 18 /min Melba Praisler-Wood 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 Work Phone: [facility] 11-12-2022 08:52-0500 SaO2% (BldA) [Mass fraction] 97 % Melba Praisler-Wood 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 Work Phone: [facility] 11-12-2022 08:52-0500 Systolic blood pressure 110 mm[Hg] Melba Praisler-Wood 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 Work Phone: [facility] 10-15-2022 17:51-0500 Body temperature 98.71 [degF] Skye Athy PA-C Work Phone: [facility] 10-15-2022 17:51-0500 Body weight 49.62 kg Skye Athy PA-C Work Phone: [facility] 10-15-2022 17:51-0500 Diastolic blood pressure 62 mm[Hg] Skye Athy PA-C Work Phone: [facility] 10-15-2022 17:51-0500 Heart rate 68 /min Skye Athy PA-C Work Phone: [facility] 10-15-2022 17:51-0500 Respiratory rate 16 /min Skye Athy PA-C Work Phone: [facility] 10-15-2022 17:51-0500 SaO2% (BldA) [Mass fraction] 99 % Skye Athy PA-C Work Phone: [facility] 10-15-2022 17:51-0500 Systolic blood pressure 114 mm[Hg] Skye Athy PA-C Work Phone: [facility] 06-05-2022 16:00-0400 Body temperature 98.01 [degF] Rach Alireza 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 Work Phone: [facility] 06-05-2022 16:00-0400 Body weight 49.26 kg Rach Alireza 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 Work Phone: [facility] 06-05-2022 16:00-0400 Diastolic blood pressure 78 mm[Hg] Rach Alireza 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 Work Phone: [facility] 06-05-2022 16:00-0400 Heart rate 98 /min Rach Alireza 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 Work Phone: [facility] 06-05-2022 16:00-0400 Respiratory rate 16 /min Rach Alireza 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 Work Phone: [facility] 06-05-2022 16:00-0400 SaO2% (BldA) [Mass fraction] 99 % Rach Lay SANTINO.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 Work Phone: [facility] 06-05-2022 16:00-0400 Systolic blood pressure 118 mm[Hg] Rach Alireza DE.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 Work Phone: [facility] Encounters Encounter Date Encounter Type Care Provider Facility Start: 07-23-2024 End: 07-23-2024 ambulatory DARYN GTZ Facility:[facility] Start: 07-23-2024 End: 07-23-2024 Patient encounter procedure Genevieve Wade 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 Work Phone: [facility] Comment on above: Lower resp. tract in fection (Primary Dx) Start: 06-27-2024 End: 07-04-2024 Telephone encounter Daryn Gtz MD Work Phone: [facility] Comment on above: Results Start: 06-26-2024 End: 06-26-2024 ambulatory DARYN GTZ Facility:[facility] Start: 06-26-2024 Encounter for genera l adult medical examination without abnormal findings DARYN GTZ [facility] Start: 06-26-2024 End: 06-26-2024 Patient encounter procedure Daryn Gtz MD Work Phone: [facility] [place] Comment on above: Encounter for medica l examination to establish care (Primary Dx); TERI (generalized anxiety disorder); Bipolar affective disorder, current episode mixed, current episode severity unspecified (HCC); Intermittent asthma without complication, unspecified asthma severity; Tobacco use Start: 06-26-2024 End: 06-26-2024 Patient encounter status Daryn Gtz MD Work Phone: [facility] Work Phone: Start: 06-26-2024 End: 06-26-2024 ambulatory DARYN GTZ Facility:[facility] Start: 05-11-2024 End: 05-11-2024 Patient encounter procedure Daryn Gtz MD Work Phone: [facility] [place] Comment on above: Headache, unspecifie d headache type (Primary Dx); Injury of head, subsequent encounter; Tachycardia; Right atrial enlargement; Tobacco use; Black hairy tongue Start: 05-11-2024 End: 05-11-2024 ambulatory [facility] Facility:[facility] Start: 01-15-2024 End: 01-15-2024 ambulatory [facility] Facility:[facility] Start: 01-15-2024 End: 01-15-2024 Office outpatient visit 25 minutes Sally Stewart APRN.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 Work Phone: [facility] Comment on above: Moderate persistent asthma with (acute) exacerbation (Primary Dx) Start: 12-31-2023 End: 12-31-2023 ambulatory [facility] Facility:[facility] Start: 07-02-2023 End: 07-02-2023 Office outpatient visit 15 minutes Sally Stewart APRN.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 Work Phone: [facility] Comment on above: Pharyngitis, unspeci fied etiology (Primary Dx); Viral illness Start: 12-10-2022 End: 12-10-2022 Patient encounter procedure Sally Stewart APRN.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 Work Phone: [facility] Comment on above: Loose stools (Primar y Dx) Start: 11-12-2022 End: 11-12-2022 Patient encounter procedure Melba Jones APRN.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 Work Phone: [facility] Comment on above: Acute otitis externa of left ear, unspecified type (Primary Dx) Start: 10-15-2022 End: 10-15-2022 Patient encounter procedure Skye Maradiaga PA-C Work Phone: [facility] Comment on above: Diarrhea, unspecifie d type (Primary Dx) Start: 06-05-2022 End: 06-05-2022 Patient encounter procedure Rach Lay APRN.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 Work Phone: [facility] Comment on above: Acute cough (Primary Dx); Nasal congestion; Wheezing; Suspected COVID-19 virus infection Start: 03-18-2021 End: 03-18-2021 Subsequent hospital visit by physician Xr [facility] [place] Work Phone: Radiology Comment on above: Rhonchi [R09.89] Procedures Date Procedure Procedure Detail Performing Clinician Start: 05-11-2024 Ecg routine ecg w/le ast 12 lds i&r only [facility] Provider Start: 07-02-2023 STREP A MOLECULAR (POC) Sally Stewart 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 Work Phone: Start: 03-18-2021 Radiologic exam ches t 2 views Genevieve Wade 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 Work Phone: Plan of Treatment Date Care Activity Detail Author Start: 06-26-2025 Annual PCP Team Editor Continuity And Script donte Disease Visit Annual PCP Team Chronic Disease Visit [facility] Start: 06-26-2025 Covid-19 Vaccine ( season) Covid-19 Vaccine () [facility] Comment on above: Postponed from 06/04 (Declined at this time) Start: 06-26-2025 Hepatitis C screening Hepatitis C Sc [facility] Comment on above: Postponed from 06/18 (Declined at this time) Start: 06-26-2025 HIV screening HIV Screening [facility] Comment on above: Postponed from 06/18 (Declined at this time) Start: 06-26-2025 Pneumococcal vaccination Pneum ococcal Vaccine (1 of 2 - PCV) [facility] Comment on above: Postponed from 06/18 (Declined at this time) Start: 06-26-2025 Urine microalbumin profile DTaP,Tdap,Td Vaccine (7 - Td or Tdap) [facility] Comment on above: Postponed from 09/14 (Declined at this time) Start: 05-11-2025 Annual PCP Team Editor Continuity And Script donte Disease Visit Annual PCP Team Chronic Disease Visit [facility] Start: 04-02-2025 Influenza vaccination Influenza Vacc ine (#1) [facility] Comment on above: Postponed from 06/04 (Declined at this time) Start: 12-25-2024 End: 12-25-2024 Patient encounter procedure 12/25/2024 2:40 PM EDT Office Visit [facility] [address] [place] [address] Denise Fritz APRN.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 [address] [place] [address] 6 month follow up Family [facility] Comment on above: 6 month follow up Start: 09-26-2024 End: 12-26-2024 25-hydroxyvitamin D3 [Mass/volume] in Serum or Plasma VITAMIN D 25 HYDROXY Lab Routine Vitamin D deficiency Expected: 09/26/2024, Expires: 12/26/2024 [facility] Work Phone: Comment on above: Expected: 09/26/2024 , Expires: 12/26/2024 Start: 07-31-2024 End: 07-31-2024 ambulatory 07/31/2024 1:30 PM EDT Procedure PULM LAB [facility] [address] [place] [address] Wstr, Pulm Lab [facility] [address] [place] [address] ASTHMA PULM LAB [facility] Comment on above: ASTHMA Start: 07-31-2024 End: 07-31-2024 Patient encounter procedure 07/31/2024 12:20 PM EDT Office Visit Family [facility] [address] [place] [address] Daryn Gzt MD [address] [place] [address] express care follow-up [facility] [place] Comment on above: express care follow- up Start: 06-28-2024 End: 06-28-2024 ambulatory 06/28/2024 1:45 PM EDT Procedure PULM LAB [facility] [address] [place] [address] Wstr, Pulm Lab [facility] [address] [place] [address] Intermittent asthma without complication, unspecified asthma severity [J45.20] PULM LAB [facility] Comment on above: Intermittent asthma without complication, unspecified asthma severity [J45.20] Start: 06-26-2024 End: 09-25-2024 25-hydroxyvitamin D3 [Mass/volume] in Serum or Plasma [facility] Comment on above: Expected: 06/26/2024 , Expires: 09/25/2024 Start: 06-26-2024 End: 09-25-2024 Cobalamin (Vitamin B12) [Mass/volume] in Serum or Plasma [facility] Comment on above: Expected: 06/26/2024 , Expires: 09/25/2024 Start: 06-26-2024 End: 09-25-2024 Comprehensive metabolic 2000 panel - Serum or Plasma [facility] Comment on above: Expected: 06/26/2024 , Expires: 09/25/2024 Start: 06-26-2024 End: 09-25-2024 LIPID PANEL, NONFASTING [facility] Comment on above: Expected: 06/26/2024 , Expires: 09/25/2024 Start: 06-26-2024 End: 09-25-2024 Thyrotropin [Units/volume] in Serum or Plasma [facility] Comment on above: Expected: 06/26/2024 , Expires: 09/25/2024 Start: 06-26-2024 End: 06-26-2024 Patient encounter procedure 06/26/2024 12:20 PM EDT Office Visit [facility] [address] [place], [place] [id number] Daryn Gtz MD [address] [place] [address] Establish Care Visit [facility] Comment on above: Establish Care Visit Start: 06-04-2024 Influenza vaccination C [facility] Start: 10-04-2023 Behavioral Health Screening Behavioral Health Screening [facility] Start: 07-02-2023 End: 07-16-2023 Influenza virus A and B RNA and SARS-CoV-2 (COVID-19) N gene panel - Respiratory specimen by REI with probe detection [facility] Work Phone: Comment on above: Expected: 07/02/2023 , Expires: 07/16/2023 Start: 06-04-2023 Covid-19 Vaccine ( season) Covid-19 Vaccine (2022-24 season) [facility] Start: 06-04-2023 Influenza vaccination Influenza Vacc ine (#1) [facility] Start: 10-15-2022 End: 10-29-2022 Influenza virus A and B RNA and SARS-CoV-2 (COVID-19) N gene panel - Respiratory specimen by REI with probe detection COVID WITH FLUA+B, ROUTINE Microbiology Routine Diarrhea, unspecified type Expected: 10/15/2022, Expires: 10/29/2022 [facility] Work Phone: Comment on above: Expected: 10/15/2022 , Expires: 10/29/2022 Start: 10-04-2022 DEPRESSION ASSESSMENT DEPRESSION ASS ESSMENT [facility] Start: 09-14-2022 Urine microalbumin profile DTaP,Tdap,Td Vaccine (7 - Td or Tdap) [facility] Start: 06-05-2022 End: 06-19-2022 SARS-CoV-2 (COVID-19) RNA [Presence] in Respiratory specimen by REI with probe detection 2019 CORONAVIRUS Microbiology Routine Acute cough Nasal congestion Suspected COVID-19 virus infection Expected: 06/05/2022, Expires: 06/19/2022 [facility] Work Phone: Comment on above: Expected: 06/05/2022 , Expires: 06/19/2022 Start: 06-04-2022 Influenza vaccination INFLUENZA (#1) [facility] Start: 04-30-2021 Urine microalbumin profile [facility] Start: 2013 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 ANNUAL PCP TEAM CHRONIC DISEASE VISIT [facility] Start: 2013 Anxiety Screening Anxiety Screening [facility] Start: 2013 Depression Screening Depression Scre ening [facility] Start: 2013 HEPATITIS C SCREENING HEPATITIS C [facility] Start: 2013 Hepatitis C screening Hepatitis C [facility] Start: 2013 HIV SCREENING HIV SCREENING [facility] Start: 2013 HIV screening HIV Screening [facility] Start: 2013 SPIROMETRY SPIROMETRY [facility] Start: 2009 PEDS TO ADULT TRANSI TION ANNUAL ASSESSMENT PEDS TO ADULT TRANSITION ANNUAL ASSESSMENT [facility] Start: 2007 Adult depression screening assessment DEPRESSION SCREENING [facility] Start: 2007 PEDS TO ADULT TRANSI TION INITIAL DISCUSSION PEDS TO ADULT TRANSITION INITIAL DISCUSSION [facility] Start: 2006 HPV VACCINE (1 - Mal e 2-dose series) HPV VACCINE (1 - Male 2-dose series) [facility] Start: 2001 PNEUMOCOCCAL (1 - PCV) PNEUMOCOCCAL (1 - PCV) [facility] Start: 2001 Pneumococcal vaccination [facility] Start: 1995 COVID-19 VACCINE (#1) COVID-19 VACCI NE (#1) [facility] ECG COMPLETE [facility] Work Phone: Comment on above: Ordered: 05/11/2024 End: 07-26-2025 SPIROMETRY - BASELINE AND POST DILATOR SPIROMETRY - BASELINE AND POST DILATOR PFT Routine Intermittent asthma without complication, unspecified asthma severity 1 Occurrences starting 06/26/2024 until 07/26/2025 [facility] Work Phone: Comment on above: 1 Occurrences starti ng 06/26/2024 until 07/26/2025 Immunizations Immunization Date Immunization Notes Care Provider Niya jean-baptiste 09-14-2012 influenza virus vaccine, unspecified formulation Rach Lay APRN.[facility] Work Phone: [facility] 09-14-2012 TD(adult) unspecifie d formulation Daryn Gtz MD Work Phone: [facility] 04-30-2011 Meningococcal, MCV4, unspecified conjugate formulation(groups A, C, Y and W-135) Rach Lay APRN.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 Work Phone: [facility] Work Phone: 04-30-2011 tetanus toxoid, reduced diphtheria toxoid, and acellular pertussis vaccine, adsorbed Rach Lay APRN.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 Work Phone: [facility] Work Phone: 01-27-2009 tetanus and diphther ia toxoids, adsorbed, preservative free, for adult use (5 Lf of tetanus toxoid and 2 Lf of diphtheria toxoid) Daryn Gtz MD Work Phone: [facility] 03-30-2001 diphtheria, tetanus toxoids and acellular pertussis vaccine Rach Alireza 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 Work Phone: [facility] Work Phone: 03-30-2001 poliovirus vaccine, inactivated Rach Alireza 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 Work Phone: [facility] Work Phone: 10-26-2000 diphtheria, tetanus toxoids and acellular pertussis vaccine Rach Alireza 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[facility] Work Phone: [facility] Work Phone: 06-19-1996 varicella virus vaccine 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 Work Phone: [facility] Work Phone: 1995 diphtheria, tetanus toxoids and pertussis vaccine Rach Alireza VP [employer].[facility] Work Phone: [facility] Work Phone: 1995 haemophilus influenz ae type b vaccine, HbOC conjugate Rach Alireza 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 Work Phone: [facility] Work Phone: 1995 hepatitis B vaccine, pediatric or pediatric/adolescent dosage Rach Alireza 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 Work Phone: [facility] Work Phone: 1995 diphtheria, tetanus toxoids and pertussis vaccine Rach Alireza VP [employer].[facility] Work Phone: [facility] Work Phone: 1995 haemophilus influenz ae type b vaccine, HbOC conjugate Rach Alireza VP [employer].[facility] Work Phone: [facility] Work Phone: 1995 trivalent poliovirus vaccine, live, oral Rach Alireza VP [employer].[facility] Work Phone: [facility] Work Phone: 1995 diphtheria, tetanus toxoids and pertussis vaccine Rach Alireza VP [employer].[facility] Work Phone: [facility] Work Phone: 1995 haemophilus influenz ae type b vaccine, HbOC conjugate Rach Alireza VP [employer].[facility] Work Phone: [facility] Work Phone: 1995 trivalent poliovirus vaccine, live, oral Rach Alireza VP [employer].[facility] Work Phone: [facility] Work Phone: 1995 hepatitis B vaccine, pediatric or pediatric/adolescent dosage Rach Alireza VP [employer].[facility] Work Phone: [facility] Work Phone: 1995 hepatitis B vaccine, pediatric or pediatric/adolescent dosage Rach Alireza VP [employer].[facility] Work Phone: [facility] Work Phone: Payers Date Payer Category Payer Unknown [employer] P[employer] [id number] 2023-Present [phone] [address] [place] [address] PPO [id number] 2023 Unknown [id number] 2022 Medicaid [id number] 2019 Medicaid [id number] Social History Date Type Detail Facility Start: 06-26-2008 End: 06-26-2024 Tobacco smoking status NHIS Smokes tobacco daily [facility] Start: 06-26-2008 History of tobacco use Cigarette Smo ker [facility] Start: 07-12-2015 End: 05-11-2024 Cigarettes smoked current (pack per day) - Reported 0.5 [facility] Start: 07-12-2015 End: 06-26-2024 Tobacco use and exposure Smokeless tobacco non-user [facility] Start: 03-18-2021 End: 06-05-2022 Alcohol intake Not Asked [facility] Start: 1995 Sex Assigned At Not on file [facility] Start: 10-15-2022 End: 07-23-2024 Alcohol intake Lifetime non-drinker (finding) [facility] Start: 09-17-2022 Tobacco Comment mother smokes [facility] Start: 07-02-2023 End: 05-11-2024 Tobacco use panel [facility] National Score (1-10 0), lower number is lower risk Not on file [facility] Start: 02-16-2021 End: 03-18-2021 Exposure to SARS-CoV-2 (event) Not sure [facility] Clinical Notes 03-18-2021 to 07-23-2024 Genevieve Wade APRN.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 - 07/23/2024 10:06 AM EDTTelephone Encounter - Daryn Gtz MD - 07/04/2024 10:18 AM EDTTelephone Encounter - Daryn Gtz MD - 07/04/2024 10:18 AM EDT Note Date & Type Note Facility 07-23-2024 Note HNO ID: [id number] Author: GENEVIEVE WADE APRN.HANDY Service: ? Author Type: Nurse Practitioner Type: Progress Notes Filed: 07/23/2024 10:23 Note Text: Subjective HPI HPI Gordon Addison is a 29 year old male who presents today for CC of cough, congestion. This started 4 days ago. Has tried otc medication for relief. Symptoms are worsened by nothing. Risk factors smoker hx of asthma. .Patient presents with: Cough: Chest congestion, fever x4 days PAST MEDICAL HISTORY Diagnosis Date Allergic rhinitis, unspecified 07/22/[address] Gomez Bipolar disorder ([facility]) Black hairy tongue Depression Edentulous Headache NEGATIVE MEDICAL HISTORY normal color vision PMH - PAST MEDICAL HISTORY OF spinal meningitis at 12 months Smoker 07/22/2018 Tobacco use disorder Vitamin B12 deficiency Vitamin D deficiency PAST SURGICAL HISTORY Procedure Laterality Date CIRCUMCISION,CLAMP, ALLERGIES Cats, Penicillins, and Eggs [Egg] MEDICATIONS amitriptyline (ELAVIL) 10 mg tablet Take 1 tablet every day by oral route at bedtime. buPROPion (WELLBUTRIN) 75 mg tablet propranolol (INDERAL) 10 mg tablet venlafaxine ER (EFFEXOR XR) 37.5 mg 24 hr capsule cyanocobalamin (VITAMIN B-12) 1,000 mcg tab Take 1 tablet by mouth once daily. cholecalciferol, Vitamin D3, (VITAMIN D3) 1,250 mcg (50,000 unit) cap capsule Take 1 capsule by mouth one time a week. albuterol HFA (PROAIR HFA) 90 mcg/actuation inhaler Inhale 2 Puffs as instructed every 4 hours as needed. albuterol (PROVENTIL) 2.5 mg /3 mL (0.083 %) nebulizer solution Use 3 mL via nebulizer every 4 hours as needed for wheezing/shortness of breath. Use over 5-15minutes. ergocalciferol 50,000 unit capsule (VITAMIN D2, DRISDOL) Take 1 capsule by mouth one time a week. (Patient not taking: Reported on 07/23/2024) FAMILY HISTORY Problem Relation Age of Onset Stroke Mother Diabetes Mother Asthma Mother Hyperlipidemia Mother Hypertension Mother Heart Attack Father 56 No Known Problems Sister No Known Problems Brother No Known Problems Brother Asthma Maternal Grandmother Diabetes Maternal Grandmother Diabetes Maternal Uncle No Known Problems Daughter Social History Tobacco Use Smoking status: Every Day Current packs/day: 0.75 Average packs/day: 0.7 packs/day for 16.1 years (12.1 ttl pk-yrs) Types: Cigarettes Start date: 06/26/2008 Smokeless tobacco: Never Tobacco comments: mother smokes Vaping Use Vaping status: Former Substance Use Topics Alcohol use: Never Drug use: Never Review of Systems Constitutional: Negative for fever. HENT: Positive for congestion and sore throat. Negative for ear pain and nosebleeds. Respiratory: Positive for cough. Negative for shortness of breath and wheezing. Musculoskeletal: Negative for neck pain. Objective Blood pressure 112/75, pulse 92, temperature 37 ?C (98.6 ?F), resp. rate 18, weight 50.4 kg (111 lb 1.8 oz), SpO2 100%. Physical Exam Constitutional: General: He is not in acute distress. Appearance: He is not toxic-appearing or diaphoretic. HENT: Head: Normocephalic and atraumatic. Cardiovascular: Rate and Rhythm: Normal rate and regular rhythm. Heart sounds: Normal heart sounds, S1 normal and S2 normal. Pulmonary: Effort: Pulmonary effort is normal. Breath sounds: Normal breath sounds. Lymphadenopathy: Cervical: No cervical adenopathy. Right cervical: No superficial cervical adenopathy. Left cervical: No superficial cervical adenopathy. Neurological: Mental Status: He is alert and oriented to person, place, and time. Gait: Gait is intact. ASSESSMENT/PLAN: 1. Lower resp. tract infection - ICD9: 519.8, ICD10: J22 No xray available - Discussed supportive care - Limit exposure to smoke and other inhaled irritants - Discussed possible red flags and when to seek medical attention - Follow up in 3-5 days or sooner if no better or worse -If you experience chest pain/shortness of breath go to ER - DOXYCYCLINE MONOHYDRATE 100 MG TABLET Genevieve Wade APRN.[facility] 07-23-2024 History of Presen t illness Narrative Subjective HPI HPI Gordon Addison is a 29 year old male who presents today for CC of cough, congestion. This started 4 days ago. Has tried otc medication for relief. Symptoms are worsened by nothing. Risk factors smoker hx of asthma. .Patient presents with: Cough: Chest congestion, fever x4 days PAST MEDICAL HISTORY Diagnosis Date Allergic rhinitis, unspecified 07/22/[address] Gomez Bipolar disorder ([facility]) Black hairy tongue Depression Edentulous Headache NEGATIVE MEDICAL HISTORY normal color vision PMH - PAST MEDICAL HISTORY OF spinal meningitis at 12 months Smoker 07/22/2018 Tobacco use disorder Vitamin B12 deficiency Vitamin D deficiency PAST SURGICAL HISTORY Procedure Laterality Date CIRCUMCISION,CLAMP, ALLERGIES Cats, Penicillins, and Eggs [Egg] MEDICATIONS amitriptyline (ELAVIL) 10 mg tablet Take 1 tablet every day by oral route at bedtime. buPROPion (WELLBUTRIN) 75 mg tablet propranolol (INDERAL) 10 mg tablet venlafaxine ER (EFFEXOR XR) 37.5 mg 24 hr capsule cyanocobalamin (VITAMIN B-12) 1,000 mcg tab Take 1 tablet by mouth once daily. cholecalciferol, Vitamin D3, (VITAMIN D3) 1,250 mcg (50,000 unit) cap capsule Take 1 capsule by mouth one time a week. albuterol HFA (PROAIR HFA) 90 mcg/actuation inhaler Inhale 2 Puffs as instructed every 4 hours as needed. albuterol (PROVENTIL) 2.5 mg /3 mL (0.083 %) nebulizer solution Use 3 mL via nebulizer every 4 hours as needed for wheezing/shortness of breath. Use over 5-15minutes. ergocalciferol 50,000 unit capsule (VITAMIN D2, DRISDOL) Take 1 capsule by mouth one time a week. (Patient not taking: Reported on 07/23/2024) FAMILY HISTORY Problem Relation Age of Onset Stroke Mother Diabetes Mother Asthma Mother Hyperlipidemia Mother Hypertension Mother Heart Attack Father 56 No Known Problems Sister No Known Problems Brother No Known Problems Brother Asthma Maternal Grandmother Diabetes Maternal Grandmother Diabetes Maternal Uncle No Known Problems Daughter Social History Tobacco Use Smoking status: Every Day Current packs/day: 0.75 Average packs/day: 0.7 packs/day for 16.1 years (12.1 ttl pk-yrs) Types: Cigarettes Start date: 06/26/2008 Smokeless tobacco: Never Tobacco comments: mother smokes Vaping Use Vaping status: Former Substance Use Topics Alcohol use: Never Drug use: Never Review of Systems Constitutional: Negative for fever. HENT: Positive for congestion and sore throat. Negative for ear pain and nosebleeds. Respiratory: Positive for cough. Negative for shortness of breath and wheezing. Musculoskeletal: Negative for neck pain. Objective Blood pressure 112/75, pulse 92, temperature 37 C (98.6 F), resp. rate 18, weight 50.4 kg (111 lb 1.8 oz), SpO2 100%. Physical Exam Constitutional: General: He is not in acute distress. Appearance: He is not toxic-appearing or diaphoretic. HENT: Head: Normocephalic and atraumatic. Cardiovascular: Rate and Rhythm: Normal rate and regular rhythm. Heart sounds: Normal heart sounds, S1 normal and S2 normal. Pulmonary: Effort: Pulmonary effort is normal. Breath sounds: Normal breath sounds. Lymphadenopathy: Cervical: No cervical adenopathy. Right cervical: No superficial cervical adenopathy. Left cervical: No superficial cervical adenopathy. Neurological: Mental Status: He is alert and oriented to person, place, and time. Gait: Gait is intact. ASSESSMENT/PLAN: 1. Lower resp. tract infection - ICD9: 519.8, ICD10: J22 No xray available - Discussed supportive care - Limit exposure to smoke and other inhaled irritants - Discussed possible red flags and when to seek medical attention - Follow up in 3-5 days or sooner if no better or worse -If you experience chest pain/shortness of breath go to ER - DOXYCYCLINE MONOHYDRATE 100 MG TABLET Genevieve Wade APRN.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 documented in this encounter [facility] 07-04-2024 Telephone encounter Note Rx sent. [facility] 07-04-2024 Miscellaneous Notes Rx sent. Patient returned call and went over results, notes from Dr Gtz with understanding. Aware Vitamin D rx sent to pharmacy. Patient wants to take the supplement, asking for rx to be sent to [facility] pharmacy. Pending rx needs completed. Letter sent to patient requesting call back and to update contact information. Mariely Stein LPN Tried calling the Pts phone number and get this reply, the number you dialed has been changed, disconnected, or is no longer in service. Called and left a voicemail on Pts significant other and mothers phone numbers for the Patient to call back and ask for a nurse to receive the providers message. Oliva Nunez, RN Vitamin D level severely low. Recommend 50,000 units of vitamin D weekly x 12 weeks and recheck in 3 months. Vitamin B 12 is also low. We can treat this with daily vitamin B12 supplement 1,000 mg OTC vs a monthly injection. Let me know which he would prefer. His other labs are normal. documented in this encounter [facility] 07-04-2024 Telephone encounter Note Patient returned call and went over results, notes from Dr Gtz with understanding. Aware Vitamin D rx sent to pharmacy. Patient wants to take the supplement, asking for rx to be sent to [facility] pharmacy. Pending rx needs completed. [facility] 06-29-2024 Telephone encounter Note Letter sent to patient requesting call back and to update contact information. Mariely Stein LPN [facility] 06-27-2024 Telephone encounter Note Tried calling the Pts phone number and get this reply, the number you dialed has been changed, disconnected, or is no longer in service. Called and left a voicemail on Pts significant other and mothers phone numbers for the Patient to call back and ask for a nurse to receive the providers message. Oliva Nunez RN T [facility] 06-27-2024 Telephone encounter Note Vitamin D level severely low. Recommend 50,000 units of vitamin D weekly x 12 weeks and recheck in 3 months. Vitamin B 12 is also low. We can treat this with daily vitamin B12 supplement 1,000 mg OTC vs a monthly injection. Let me know which he would prefer. His other labs are normal. [facility] 06-26-2024 Note HNO ID: [id number] Author: DARYN GTZ MD Service: ? Author Type: Physician Type: Progress Notes Filed: 06/26/2024 14:52 Note Text: Chief Complaint Patient presents with: Establish Care HPI Gordon Addison is a 29 year old male who presents here today for Above Complaints. Accompanied today by mother. 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 We discussed possible tension headache at last OV on 05/11 and patient returned to [facility] ER on 05/13 for same complaint with negative CT brain. Did follow up with neurology on 05/15 who recommended he start amitriptyline for possible migraine prevention. Today, states that he has not had any recurrent headaches since his CT scan. Thinks it could have been related to TMJ which has resolved. History of asthma which used to be managed by Dr. Gomez's office with last OV in 2018. Patient only has albuterol inhaler at home which he needs less than 1 time weekly. Has nebulizer at home as well. Rx up to date. Denies cough, wheezing, SOB. Last PFT was around 2018. Patient has history of anxiety and bipolar disorder. States that he has appointment to establish with psychiatry on 07/17. Does see counseling at 180 every 2 weeks. Has not been on medication in the past. Mother notes that he does get bad mood swings. Last manic episode was 1 month ago. Denies feeling depressed or anxious today. Denies SI/HI or history of suicide attempt. 06/26/2024 1256 Last Filed Value PHQ-9 Little interest or pleasure in doing things More than half the days More than half the days Feeling down, depressed, or hopeless Several days Several days Trouble falling or staying asleep, or sleeping too much Several days Several days Feeling tired or having little energy Several days Several days Poor appetite or overeating Not at all Not at all Feeling bad about yourself - or that you are a failure or have let yourself or your family down Not at all Not at all Trouble concentrating on things, such as reading the newspaper or watching television Not at all Not at all Moving or speaking so slowly that other people could have noticed. Or the opposite - being so fidgety or restless that you have been moving around a lot more than usual Not at all Not at all Thoughts that you would be better off , or of hurting yourself in some way Not at all Not at all If you checked off any problems, how difficult have these problems made it for you to do your work, take care of things at home, or get along with other people? -- -- PHQ-9 score 5 5 PHQ-9 Score 5 5 PHQ-2 score 3 3 PHQ-2 Score 3 3 06/26/2024 1256 Last Filed Value TERI-7 - over the last 2 weeks... Feeling nervous, anxious, or on edge Not at all Not at all Not being able to stop or control worrying Several days Several days Worrying too much about different things More than half the days More than half the days Trouble relaxing More than half the days More than half the days Being so restless that it is hard to sit still Several days Several days Becoming easily annoyed or irritable More than half the days More than half the days Feeling afraid, as if something awful might happen Nearly Everyday Nearly Everyday How difficult to do work, care for home, get along with people -- -- TERI-2 Total Score 1 1 TERI-7 Total Score 11 11 TERI-7 Score 11 11 Smokes 3/4 pack for the last 16 years. Not ready to quit today. Refusing all vaccinations today. Past medical history, appointments, medications, allergies reviewed. Previous Medical History PAST MEDICAL HISTORY Diagnosis Date Allergic rhinitis, unspecified 07/22/[address] Gomez Black hairy tongue Headache NEGATIVE MEDICAL HISTORY normal color vision PMH - PAST MEDICAL HISTORY OF spinal meningitis at 12 months Smoker 07/22/2018 Tobacco use disorder Previous Surgical History PAST SURGICAL HISTORY Procedure Laterality Date CIRCUMCISION,CLAMP, Family History FAMILY HISTORY Problem Relation Age of Onset Stroke Mother Patient Allergies ALLERGIES Allergen Reactions Cats Shortness of Breath Patient reported allergy on 05/11/24 Penicillins Hives Eggs [Egg] Rash Current Medications Current Outpatient Medications on File Prior to Visit Medication Sig acetic acid (VOSOL) 2 % otic solution Use 4 Drops in the left ear three times daily. (Patient not taking: Reported on 12/10/2022) cetirizine (ZYRTEC) 10 mg tablet Take 1 tablet by mouth once daily. (Patient not taking: Reported on 07/02/2023) albuterol (PROVENTIL) 2.5 mg /3 mL (0.083 %) nebulizer solution Use 3 mL via nebulizer every 4 hours as needed for wheezing/shortness of breath. Use over 5-15minutes. (Patient not taking: Reported on 07/02/2023) albuterol HFA (PROAIR HFA) 90 mcg/actuation inhaler Inhale 2 Puffs as instructed every 4 hours as needed. (Patient not taking: Reported on 07/02/2023) No current facility-administered medicat (more content not included)... [facility] 06-26-2024 History of Presen t illness Narrative Chief Complaint Patient presents with: Establish Care HPI Gordon Addison is a 29 year old male who presents here today for Above Complaints. Accompanied today by mother. 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 We discussed possible tension headache at last OV on 05/11 and patient returned to [facility] ER on 05/13 for same complaint with negative CT brain. Did follow up with neurology on 05/15 who recommended he start amitriptyline for possible migraine prevention. Today, states that he has not had any recurrent headaches since his CT scan. Thinks it could have been related to TMJ which has resolved. History of asthma which used to be managed by Dr. Gomez's office with last OV in 2018. Patient only has albuterol inhaler at home which he needs less than 1 time weekly. Has nebulizer at home as well. Rx up to date. Denies cough, wheezing, SOB. Last PFT was around 2018. Patient has history of anxiety and bipolar disorder. States that he has appointment to establish with psychiatry on 07/17. Does see counseling at 180 every 2 weeks. Has not been on medication in the past. Mother notes that he does get bad mood swings. Last manic episode was 1 month ago. Denies feeling depressed or anxious today. Denies SI/HI or history of suicide attempt. 06/26/2024 1256 Last Filed Value PHQ-9 Little interest or pleasure in doing things More than half the days More than half the days Feeling down, depressed, or hopeless Several days Several days Trouble falling or staying asleep, or sleeping too much Several days Several days Feeling tired or having little energy Several days Several days Poor appetite or overeating Not at all Not at all Feeling bad about yourself - or that you are a failure or have let yourself or your family down Not at all Not at all Trouble concentrating on things, such as reading the newspaper or watching television Not at all Not at all Moving or speaking so slowly that other people could have noticed. Or the opposite - being so fidgety or restless that you have been moving around a lot more than usual Not at all Not at all Thoughts that you would be better off , or of hurting yourself in some way Not at all Not at all If you checked off any problems, how difficult have these problems made it for you to do your work, take care of things at home, or get along with other people? -- -- PHQ-9 score 5 5 PHQ-9 Score 5 5 PHQ-2 score 3 3 PHQ-2 Score 3 3 06/26/2024 1256 Last Filed Value TERI-7 - over the last 2 weeks... Feeling nervous, anxious, or on edge Not at all Not at all Not being able to stop or control worrying Several days Several days Worrying too much about different things More than half the days More than half the days Trouble relaxing More than half the days More than half the days Being so restless that it is hard to sit still Several days Several days Becoming easily annoyed or irritable More than half the days More than half the days Feeling afraid, as if something awful might happen Nearly Everyday Nearly Everyday How difficult to do work, care for home, get along with people -- -- TERI-2 Total Score 1 1 TERI-7 Total Score 11 11 TERI-7 Score 11 11 Smokes 3/4 pack for the last 16 years. Not ready to quit today. Refusing all vaccinations today. Past medical history, appointments, medications, allergies reviewed. Previous Medical History PAST MEDICAL HISTORY Diagnosis Date Allergic rhinitis, unspecified 07/22/[address] Gomez Black hairy tongue Headache NEGATIVE MEDICAL HISTORY normal color vision PMH - PAST MEDICAL HISTORY OF spinal meningitis at 12 months Smoker 07/22/2018 Tobacco use disorder Previous Surgical History PAST SURGICAL HISTORY Procedure Laterality Date CIRCUMCISION,CLAMP, Family History FAMILY HISTORY Problem Relation Age of Onset Stroke Mother Patient Allergies ALLERGIES Allergen Reactions Cats Shortness of Breath Patient reported allergy on 05/11/24 Penicillins Hives Eggs [Egg] Rash Current Medications Current Outpatient Medications on File Prior to Visit Medication Sig acetic acid (VOSOL) 2 % otic solution Use 4 Drops in the left ear three times daily. (Patient not taking: Reported on 12/10/2022) cetirizine (ZYRTEC) 10 mg tablet Take 1 tablet by mouth once daily. (Patient not taking: Reported on 07/02/2023) albuterol (PROVENTIL) 2.5 mg /3 mL (0.083 %) nebulizer solution Use 3 mL via nebulizer every 4 hours as needed for wheezing/shortness of breath. Use over 5-15minutes. (Patient not taking: Reported on 07/02/2023) albuterol HFA (PROAIR HFA) 90 mcg/actuation inhaler Inhale 2 Puffs as instructed every 4 hours as needed. (Patient not taking: Reported on 07/02/2023) No current facility-administered medications on file prior to visit. Social History Social History Tobacco Use Smoking status: Every Day Current packs/day: 0.50 Types: Cigarettes Smokeless tobacco: Never Tobacco comments: mother smokes Vaping Use Vaping status: Former Substance Use Topics Alcohol use: Never Drug use: Never Review of Symptoms REVIEW OF SYSTEMS GENERAL: No weight loss, malaise or fevers HEENT: Negative for frequent or significant headaches, No changes in hearing or vision, no nose bleeds or other nasal problems NECK: Negative for lumps, goiter, pain and significant neck swelling RESPIRATORY: Negative for cough, hemoptysis, wheezing, COPD, dyspnea or shortness of breath CARDIOVASCULAR: Negative for chest pain, leg swelling, hypertension, CHF or palpitations GI: No nausea, vomiting, or diarrhea : No history of dysuria, frequency or incontinence MUSCULOSKELETAL: Negative for joint pain or swelling, back pain or muscle pain SKIN: Negative for lesions, rash, and itching PSYCH: See HPI HEMATOLOGY/LYMPHOLOGY: Negative for prolonged bleeding, bruising easily or swollen nodes ENDOCRINE: Negative for cold or heat intolerance, polyuria, polydipsia and goiter NEURO: No history of headaches, syncope, paralysis, seizures or tremors EXAM: BP 116/66 Pulse 87 Resp 16 Ht 165.6 cm (5' 5.2) Wt 52.3 kg (115 lb 6.4 oz) SpO2 99% BMI 19.09 kg/m General Appearance: Well appearing, alert, in no acute distress, well-hydrated, well nourished.. Skin: Skin color, texture, turgor normal, no suspicious rashes or lesions. Oropharynx: edentulous, black hairy tongue. No pharyngeal erythema or tonsillar hypertrophy Neck: Supple, no adenopathy; thyroid symmetric, normal size, no bruits. Lungs: Lungs clear to auscultation. No wheezing, rhonchi, rales.. Heart: RRR without murmur, gallop, or rubs. No ectopy. Abdomen: Normal abdominal exam, Abdomen soft, non-tender. Bowel sounds normal. No masses, organomegaly. Extremities: No deformities, edema, skin discoloration, clubbing or cyanosis. Good capillary refill. . Health Maintenance List Pneumococcal Vaccine(1 of 2 - PCV) Never done Spirometry Never done Depression Screening Never done Anxiety Screening Never done Hepatitis C Screening Never done HIV Screening Never done DTaP,Tdap,Td Vaccine(7 - Td or Tdap) due on 09/14/2022 Covid-19 Vaccine(2023- season) Never done Influenza Vaccine(1) due on 06/04/2024 Annual PCP Team Chronic Disease Visit due on 05/11/2025 Hepatitis B Vaccine Completed HPV Vaccine Aged Out ASSESSMENT/PLAN: 1. Encounter for medical examination to establish care - ICD9: V70.9, ICD10: Z00.00 (primary diagnosis) - Counseled on healthy diet and regular exercise - Smoking cessation encouraged; discussed risks to health and quitting strategies. Patient is not ready to quit - Follow up for annual exam in one year - COMPLETE BLOOD COUNT AND DIFFERENTIAL - COMPREHENSIVE METABOLIC PANEL - LIPID PANEL, NONFASTING 2. TERI (generalized anxiety disorder) - ICD9: 300.02, ICD10: F41.1 Moderate symptoms today. Will continue counseling and keep f/u with psychiatry for med management since he also has history of bipolar disorder. Discussed lifestyle changes to help reduce anxiety symptoms. Red flags for re-assessment reviewed with patient in detail. - THYROID STIMULATING HORMONE - VITAMIN D 25 HYDROXY - VITAMIN B12 3. Bipolar affective disorder, current episode mixed, current episode severity unspecified (HCC) - ICD9: 296.60, ICD10: F31.60 Mild depression symptoms. No manic episodes or SI. F/u with psychiatry and counseling. Obtain labs as ordered. - THYROID STIMULATING HORMONE - VITAMIN D 25 HYDROXY - VITAMIN B12 4. Intermittent asthma without complication, unspecified asthma severity - ICD9: 493.90, ICD10: J45.20 - Mild intermittent asthma stable - Continue current medications - Avoidance of triggers recommended - SPIROMETRY - BASELINE AND POST DILATOR 5. Tobacco use - ICD9: 305.1, ICD10: Z72.0 - Cessation encouraged. - Physiologic and physical aspects of tobacco addiction as well as strategies for quitting were discussed. - Counseling was given focusing on the harmful effects of this addiction especially given the patient's medical condition(s) which will be worsened because of the chemicals in tobacco. Daryn Gtz MD documented in this encounter [facility] 05-11-2024 Note HNO ID: [id number] Author: DARYN GTZ MD Service: ? Author Type: Physician Type: Progress Notes Filed: 05/11/2024 12:35 Note Text: Chief Complaint Patient presents with: ER F/U: Post concussion- looking for 2nd opinion HPI Gordon Addison is a 28 year old male who presents here today for new limited ER follow up. Accompanied today by his mother Lakeshia. Patient evaluated at [facility] ED on 05/06, 05/08, 05/09, and 05/10 for complaint of headache with changing history. Initially reported fatigue and headache and was concerned for COVID infection, but rapid testing was negative. Denied history of trauma or migraine on 05/06. Worsening headache on 05/08 and denied trauma. Given IV fluids, Toradol, Reglan and Bendryl which significantly improved symptoms and was discharged home. On 05/09 he complained of left sided parietal headache and now noted head trauma. Without LOC, sammarinese CT head rule did not indicate imaging. Given work excuse and discussed treatment for headache at home and that he might have symptoms for 4-6 weeks. On 05/10, again reported that he had hit his head on low celing at home about 1 week prior without LOC. No imaging was performed at this visit and patient was reassured. Given information for neurology and discharged home. Patient states that he had recurrence of his headache, but this time was located over his forehead. Described as pressure sensation, up to 5/10, without radiation. Denies nausea, vomiting, vision changes, photophobia, phonophobia, nasal congestion, rhinorrhea, sinus pressure. Treated with tylenol and pain has resolved. He reports that he injured his head 1-2 weeks ago when he was walking up the stairs and when he turned he hit his head on a cupboard. Did not have LOC with this injury. Denies swelling or bruising over the area. No loss of memory around this event. He is not on blood thinners at this time. Patient states that he does have an appointment with neurology in [place] in 5 days. Past medical history, appointments, medications, allergies reviewed. Previous Medical History PAST MEDICAL HISTORY 07/22/2018: Allergic rhinitis, unspecified No date: NEGATIVE MEDICAL HISTORY Comment: normal color vision No date: PM - PAST MEDICAL HISTORY OF Comment: spinal meningitis at 12 months No date: [facility] - PAST MEDICAL HISTORY OF Comment: asthma 07/22/2018: Severe persistent asthma without complication Comment: Seeing Dr. Gomez Pulmonary. 07/22/2018: Smoker Previous Surgical History PAST SURGICAL HISTORY No date: CIRCUMCISION,CLAMP, Family History FAMILY HISTORY Problem Relation Age of Onset Stroke Mother Patient Allergies ALLERGIES Allergen Reactions Cats Shortness of Breath Patient reported allergy on 05/11/24 Penicillins Hives Eggs [Egg] Rash Current Medications Current Outpatient Medications on File Prior to Visit Medication Sig acetic acid (VOSOL) 2 % otic solution Use 4 Drops in the left ear three times daily. (Patient not taking: Reported on 12/10/2022) cetirizine (ZYRTEC) 10 mg tablet Take 1 tablet by mouth once daily. (Patient not taking: Reported on 07/02/2023) albuterol (PROVENTIL) 2.5 mg /3 mL (0.083 %) nebulizer solution Use 3 mL via nebulizer every 4 hours as needed for wheezing/shortness of breath. Use over 5-15minutes. (Patient not taking: Reported on 07/02/2023) albuterol HFA (PROAIR HFA) 90 mcg/actuation inhaler Inhale 2 Puffs as instructed every 4 hours as needed. (Patient not taking: Reported on 07/02/2023) No current facility-administered medications on file prior to visit. Social History Social History Tobacco Use Smoking status: Every Day Packs/day: .5 Types: Cigarettes Smokeless tobacco: Never Tobacco comments: mother smokes Vaping Use Vaping Use: Former Substance Use Topics Alcohol use: Never Drug use: Never Review of Symptoms REVIEW OF SYSTEMS GENERAL: No weight loss, malaise or fevers RESPIRATORY: Negative for cough, hemoptysis, wheezing, COPD, dyspnea or shortness of breath CARDIOVASCULAR: Negative for chest pain, leg swelling, hypertension, CHF or palpitations GI: No nausea, vomiting, or diarrhea SKIN: Negative for lesions, rash, and itching EXAM: BP 130/64 Pulse (!) 131 Temp 36.4 ?C (97.6 ?F) Resp 16 Wt 52.6 kg (115 lb 15.4 oz) SpO2 97% General Appearance: Well appearing, alert, in no acute distress, well-hydrated, well nourished.. Skin: Skin color, texture, turgor normal, no suspicious rashes or lesions. Head: Normocephalic, no masses, lesions, tenderness or abnormalities. Nose/sinuses: non tender to palpation over sinuses and forehead Oropharynx: edentulous, black hairy tongue. No pharyngeal erythema or tonsillar hypertrophy Neck: Supple, no adenopathy; thyroid symmetric, normal size, no bruits. Lungs: Lungs clear to auscultation. No wheezing, rhonchi, rales.. Heart: Negative findings: no murmurs, clicks, or gallops, Positive fi (more content not included)... [facility] 05-11-2024 History of Presen t illness Narrative Chief Complaint Patient presents with: ER F/U: Post concussion- looking for 2nd opinion HPI Gordon Addison is a 28 year old male who presents here today for new limited ER follow up. Accompanied today by his mother Lakeshia. Patient evaluated at [facility] ED on 05/06, 05/08, 05/09, and 05/10 for complaint of headache with changing history. Initially reported fatigue and headache and was concerned for COVID infection, but rapid testing was negative. Denied history of trauma or migraine on 05/06. Worsening headache on 05/08 and denied trauma. Given IV fluids, Toradol, Reglan and Bendryl which significantly improved symptoms and was discharged home. On 05/09 he complained of left sided parietal headache and now noted head trauma. Without LOC, sammarinese CT head rule did not indicate imaging. Given work excuse and discussed treatment for headache at home and that he might have symptoms for 4-6 weeks. On 05/10, again reported that he had hit his head on low celing at home about 1 week prior without LOC. No imaging was performed at this visit and patient was reassured. Given information for neurology and discharged home. Patient states that he had recurrence of his headache, but this time was located over his forehead. Described as pressure sensation, up to 5/10, without radiation. Denies nausea, vomiting, vision changes, photophobia, phonophobia, nasal congestion, rhinorrhea, sinus pressure. Treated with tylenol and pain has resolved. He reports that he injured his head 1-2 weeks ago when he was walking up the stairs and when he turned he hit his head on a cupboard. Did not have LOC with this injury. Denies swelling or bruising over the area. No loss of memory around this event. He is not on blood thinners at this time. Patient states that he does have an appointment with neurology in [place] in 5 days. Past medical history, appointments, medications, allergies reviewed. Previous Medical History PAST MEDICAL HISTORY 07/22/2018: Allergic rhinitis, unspecified No date: NEGATIVE MEDICAL HISTORY Comment: normal color vision No date: PMH - PAST MEDICAL HISTORY OF Comment: spinal meningitis at 12 months No date: PMH - PAST MEDICAL HISTORY OF Comment: asthma 07/22/2018: Severe persistent asthma without complication Comment: Seeing Dr. Gomez Pulmonary. 07/22/2018: Smoker Previous Surgical History PAST SURGICAL HISTORY No date: CIRCUMCISION,CLAMP, Family History FAMILY HISTORY Problem Relation Age of Onset Stroke Mother Patient Allergies ALLERGIES Allergen Reactions Cats Shortness of Breath Patient reported allergy on 05/11/24 Penicillins Hives Eggs [Egg] Rash Current Medications Current Outpatient Medications on File Prior to Visit Medication Sig acetic acid (VOSOL) 2 % otic solution Use 4 Drops in the left ear three times daily. (Patient not taking: Reported on 12/10/2022) cetirizine (ZYRTEC) 10 mg tablet Take 1 tablet by mouth once daily. (Patient not taking: Reported on 07/02/2023) albuterol (PROVENTIL) 2.5 mg /3 mL (0.083 %) nebulizer solution Use 3 mL via nebulizer every 4 hours as needed for wheezing/shortness of breath. Use over 5-15minutes. (Patient not taking: Reported on 07/02/2023) albuterol HFA (PROAIR HFA) 90 mcg/actuation inhaler Inhale 2 Puffs as instructed every 4 hours as needed. (Patient not taking: Reported on 07/02/2023) No current facility-administered medications on file prior to visit. Social History Social History Tobacco Use Smoking status: Every Day Packs/day: .5 Types: Cigarettes Smokeless tobacco: Never Tobacco comments: mother smokes Vaping Use Vaping Use: Former Substance Use Topics Alcohol use: Never Drug use: Never Review of Symptoms REVIEW OF SYSTEMS GENERAL: No weight loss, malaise or fevers RESPIRATORY: Negative for cough, hemoptysis, wheezing, COPD, dyspnea or shortness of breath CARDIOVASCULAR: Negative for chest pain, leg swelling, hypertension, CHF or palpitations GI: No nausea, vomiting, or diarrhea SKIN: Negative for lesions, rash, and itching EXAM: BP 130/64 Pulse (!) 131 Temp 36.4 C (97.6 F) Resp 16 Wt 52.6 kg (115 lb 15.4 oz) SpO2 97% General Appearance: Well appearing, alert, in no acute distress, well-hydrated, well nourished.. Skin: Skin color, texture, turgor normal, no suspicious rashes or lesions. Head: Normocephalic, no masses, lesions, tenderness or abnormalities. Nose/sinuses: non tender to palpation over sinuses and forehead Oropharynx: edentulous, black hairy tongue. No pharyngeal erythema or tonsillar hypertrophy Neck: Supple, no adenopathy; thyroid symmetric, normal size, no bruits. Lungs: Lungs clear to auscultation. No wheezing, rhonchi, rales.. Heart: Negative findings: no murmurs, clicks, or gallops, Positive findings: tachycardia. Extremities: No deformities, edema, skin discoloration, clubbing or cyanosis. Good capillary refill. . Neurologic: Negative findings: speech normal, mental status intact, cranial nerves 2-12 intact, muscle tone normal, muscle strength normal, sensation to light touch and pinprick normal, reflexes normal and symmetric. Health Maintenance List Pneumococcal Vaccine(1 of 2 - PCV) Never done Spirometry Never done Annual PCP Team Chronic Disease Visit Never done Depression Screening Never done Anxiety Screening Never done Hepatitis C Screening Never done HIV Screening Never done DTaP,Tdap,Td Vaccine(7 - Td or Tdap) due on 09/14/2022 Covid-19 Vaccine( - 2022- season) Never done Influenza Vaccine(1) due on 06/04/2024 Hepatitis B Vaccine Completed HPV Vaccine Aged Out EKG: Sinus tachycardia at 105 bpm, right atrial enlargement, borderline EKG ASSESSMENT/PLAN: 1. Headache, unspecified headache type - ICD9: 784.0, ICD10: R51.9 (primary diagnosis) Pain has resolved today with tylenol. Exam and symptoms are not consistent with migraine, concussion, intracranial hemorrhage, or sinus infection. Suspect tension headache. Discussed ice/heat to his neck, self massage, OTC analgesics. May return to work tomorrow. Red flags for re-assessment reviewed with patient in detail. Keep f/u with neurology as scheduled. 2. Injury of head, subsequent encounter - ICD9: V58.89, 959.01, ICD10: S09.90XD Low impact injury. Normal exam today without signs of trauma. I agree, injury and symptoms do not warrant head imaging at this time. 3. Tachycardia - ICD9: 785.0, ICD10: R00.0 HR improved after sitting for a while. Mildly elevated on EKG. Likely 2/2 him smoking 8 cigarettes before coming in today and being anxious. - ECG COMPLETE 4. Right atrial enlargement - ICD9: 429.3, ICD10: I51.7 Noted on EKG. Discussed further workup at future OV if he chooses to establish care here. 5. Tobacco use - ICD9: 305.1, ICD10: Z72.0 - Cessation encouraged. - Physiologic and physical aspects of tobacco addiction as well as strategies for quitting were discussed. - Counseling was given focusing on the harmful effects of this addiction especially given the patient's medical condition(s) which will be worsened because of the chemicals in tobacco. 6. Black hairy tongue - ICD9: 529.3, ICD10: K14.3 Discussed smoking cessation, dental hygiene, brushing his tongue at least BID. I spent a total of 53 minutes on the date of the service which included preparing to see the patient, [id number] patient care, completing clinical documentation, obtaining and/or reviewing separately obtained history, performing a medically appropriate examination, counseling and educating the patient/family/caregiver, ordering medications, tests, or procedures, independently interpreting results (not separately reported), and communicating results to the patient/family/caregiver. Daryn Gtz MD documented in this encounter [facility] 01-15-2024 Note HNO ID: [id number] Author: SALLY STEWART APRN.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 Service: ? Author Type: Nurse Practitioner Type: Progress Notes Filed: 01/15/2024 12:21 Note Text: Subjective HPI Nontoxic-appearing male presents urgent care chief complaint asthma exacerbation. Duration of symptoms 6 days. Associated symptoms cough shortness of breath at times. Was seen in the ED on Wednesday. Diagnosed with asthma. Sent home with inhaler no steroids. Presents today for evaluation. States cough is bothersome if he uses his rescue inhaler this does improve for short amount of time. Was seen pulmonology for severe persistent asthma has not seen them in quite some time. Denies any productive cough hemoptysis fever body aches chills nausea vomiting abdominal pain or change in bowel or bladder habits. Denies any recent hospitalizations due to asthma. Past medical history prescription medications allergies reviewed. .Patient presents with: Asthma PAST MEDICAL HISTORY Diagnosis Date Allergic rhinitis, unspecified 07/22/2018 NEGATIVE MEDICAL HISTORY normal color vision PMH - PAST MEDICAL HISTORY OF spinal meningitis at 12 months PMH - PAST MEDICAL HISTORY OF asthma Severe persistent asthma without complication 07/22/[address] Gomez Pulmonary. Smoker 07/22/2018 PAST SURGICAL HISTORY Procedure Laterality Date CIRCUMCISION,CLAMP, ALLERGIES Penicillins and Eggs [Egg] MEDICATIONS acetic acid (VOSOL) 2 % otic solution Use 4 Drops in the left ear three times daily. (Patient not taking: Reported on 12/10/2022) cetirizine (ZYRTEC) 10 mg tablet Take 1 tablet by mouth once daily. (Patient not taking: Reported on 07/02/2023) albuterol (PROVENTIL) 2.5 mg /3 mL (0.083 %) nebulizer solution Use 3 mL via nebulizer every 4 hours as needed for wheezing/shortness of breath. Use over 5-15minutes. (Patient not taking: Reported on 07/02/2023) albuterol HFA (PROAIR HFA) 90 mcg/actuation inhaler Inhale 2 Puffs as instructed every 4 hours as needed. (Patient not taking: Reported on 07/02/2023) FAMILY HISTORY Problem Relation Age of Onset Stroke Mother Social History Tobacco Use Smoking status: Every Day Packs/day: .5 Types: Cigarettes Smokeless tobacco: Never Tobacco comments: mother smokes Vaping Use Vaping Use: Former Substance Use Topics Alcohol use: Never Drug use: Never BP 122/72 Pulse 89 Temp 36.9 ?C (98.4 ?F) Resp 18 Wt 48.4 kg (106 lb 11.2 oz) SpO2 100% Review of Systems Constitutional: Negative for chills, fever and malaise/fatigue. HENT: Positive for congestion. Negative for ear discharge, ear pain, sinus pain and sore throat. Eyes: Negative for blurred vision, pain, discharge and redness. Respiratory: Positive for cough and shortness of breath. Negative for hemoptysis, sputum production, wheezing and stridor. Cardiovascular: Negative for chest pain. Gastrointestinal: Negative for abdominal pain, diarrhea, nausea and vomiting. Musculoskeletal: Negative for myalgias. Skin: Negative for itching and rash. Neurological: Negative for dizziness and headaches. Objective Physical Exam Constitutional: General: He is not in acute distress. Appearance: He is not diaphoretic. HENT: Head: Normocephalic. Jaw: No trismus, tenderness, swelling or pain on movement. Nose: Congestion present. Mouth/Throat: Mouth: Mucous membranes are moist. Pharynx: Oropharynx is clear. Uvula midline. No pharyngeal swelling, oropharyngeal exudate, posterior oropharyngeal erythema or uvula swelling. Eyes: Conjunctiva/sclera: Conjunctivae normal. Pupils: Pupils are equal, round, and reactive to light. Cardiovascular: Rate and Rhythm: Normal rate and regular rhythm. Heart sounds: Normal heart sounds. Pulmonary: Effort: Pulmonary effort is normal. No tachypnea, accessory muscle usage or respiratory distress. Breath sounds: No stridor. Wheezing present. No rhonchi or rales. Abdominal: General: There is no distension. Palpations: Abdomen is soft. Tenderness: There is no abdominal tenderness. There is no guarding or rebound. Musculoskeletal: Cervical back: Normal range of motion and neck supple. No edema, erythema, rigidity or tenderness. No pain with movement. Normal range of motion. Lymphadenopathy: Cervical: No cervical adenopathy. Skin: General: Skin is warm and dry. Neurological: Mental Status: He is alert and oriented to person, place, and time. ASSESSMENT/PLAN: 1. Moderate persistent asthma with (acute) exacerbation - ICD9: 493.92, ICD10: J45.41 Patient nontoxic-appearing. No respiratory distress noted. Hemodynamically stable. Diagnosis asthma exacerbation. Will be placed on antihistamines and prednisone. Encouraged to follow-up with pulmonology. Patient was educated on supportive therapies. Patient will follow up with primary care provider as needed. Patient was instructed to immediately proceed to emergency room for any new, worsenin (more content not included)... [facility] 01-15-2024 History of Presen t illness Narrative Subjective HPI Nontoxic-appearing male presents urgent care chief complaint asthma exacerbation. Duration of symptoms 6 days. Associated symptoms cough shortness of breath at times. Was seen in the ED on Wednesday. Diagnosed with asthma. Sent home with inhaler no steroids. Presents today for evaluation. States cough is bothersome if he uses his rescue inhaler this does improve for short amount of time. Was seen pulmonology for severe persistent asthma has not seen them in quite some time. Denies any productive cough hemoptysis fever body aches chills nausea vomiting abdominal pain or change in bowel or bladder habits. Denies any recent hospitalizations due to asthma. Past medical history prescription medications allergies reviewed. .Patient presents with: Asthma PAST MEDICAL HISTORY Diagnosis Date Allergic rhinitis, unspecified 07/22/2018 NEGATIVE MEDICAL HISTORY normal color vision PMH - PAST MEDICAL HISTORY OF spinal meningitis at 12 months PMH - PAST MEDICAL HISTORY OF asthma Severe persistent asthma without complication 07/22/[address] Gomez Pulmonary. Smoker 07/22/2018 PAST SURGICAL HISTORY Procedure Laterality Date CIRCUMCISION,CLAMP, ALLERGIES Penicillins and Eggs [Egg] MEDICATIONS acetic acid (VOSOL) 2 % otic solution Use 4 Drops in the left ear three times daily. (Patient not taking: Reported on 12/10/2022) cetirizine (ZYRTEC) 10 mg tablet Take 1 tablet by mouth once daily. (Patient not taking: Reported on 07/02/2023) albuterol (PROVENTIL) 2.5 mg /3 mL (0.083 %) nebulizer solution Use 3 mL via nebulizer every 4 hours as needed for wheezing/shortness of breath. Use over 5-15minutes. (Patient not taking: Reported on 07/02/2023) albuterol HFA (PROAIR HFA) 90 mcg/actuation inhaler Inhale 2 Puffs as instructed every 4 hours as needed. (Patient not taking: Reported on 07/02/2023) FAMILY HISTORY Problem Relation Age of Onset Stroke Mother Social History Tobacco Use Smoking status: Every Day Packs/day: .5 Types: Cigarettes Smokeless tobacco: Never Tobacco comments: mother smokes Vaping Use Vaping Use: Former Substance Use Topics Alcohol use: Never Drug use: Never BP 122/72 Pulse 89 Temp 36.9 C (98.4 F) Resp 18 Wt 48.4 kg (106 lb 11.2 oz) SpO2 100% Review of Systems Constitutional: Negative for chills, fever and malaise/fatigue. HENT: Positive for congestion. Negative for ear discharge, ear pain, sinus pain and sore throat. Eyes: Negative for blurred vision, pain, discharge and redness. Respiratory: Positive for cough and shortness of breath. Negative for hemoptysis, sputum production, wheezing and stridor. Cardiovascular: Negative for chest pain. Gastrointestinal: Negative for abdominal pain, diarrhea, nausea and vomiting. Musculoskeletal: Negative for myalgias. Skin: Negative for itching and rash. Neurological: Negative for dizziness and headaches. Objective Physical Exam Constitutional: General: He is not in acute distress. Appearance: He is not diaphoretic. HENT: Head: Normocephalic. Jaw: No trismus, tenderness, swelling or pain on movement. Nose: Congestion present. Mouth/Throat: Mouth: Mucous membranes are moist. Pharynx: Oropharynx is clear. Uvula midline. No pharyngeal swelling, oropharyngeal exudate, posterior oropharyngeal erythema or uvula swelling. Eyes: Conjunctiva/sclera: Conjunctivae normal. Pupils: Pupils are equal, round, and reactive to light. Cardiovascular: Rate and Rhythm: Normal rate and regular rhythm. Heart sounds: Normal heart sounds. Pulmonary: Effort: Pulmonary effort is normal. No tachypnea, accessory muscle usage or respiratory distress. Breath sounds: No stridor. Wheezing present. No rhonchi or rales. Abdominal: General: There is no distension. Palpations: Abdomen is soft. Tenderness: There is no abdominal tenderness. There is no guarding or rebound. Musculoskeletal: Cervical back: Normal range of motion and neck supple. No edema, erythema, rigidity or tenderness. No pain with movement. Normal range of motion. Lymphadenopathy: Cervical: No cervical adenopathy. Skin: General: Skin is warm and dry. Neurological: Mental Status: He is alert and oriented to person, place, and time. ASSESSMENT/PLAN: 1. Moderate persistent asthma with (acute) exacerbation - ICD9: 493.92, ICD10: J45.41 Patient nontoxic-appearing. No respiratory distress noted. Hemodynamically stable. Diagnosis asthma exacerbation. Will be placed on antihistamines and prednisone. Encouraged to follow-up with pulmonology. Patient was educated on supportive therapies. Patient will follow up with primary care provider as needed. Patient was instructed to immediately proceed to emergency room for any new, worsening, or symptoms lasting longer than anticipated. The patient's clinical presentation is otherwise unremarkable at this time. Based on exam and clinical finding, the patient is stable for discharge. Plan of care was discussed with patient. Patient verbalizes understanding and agrees to plan of care. This note was generated using [employer] software. It may contain errors in wording, punctuation, or spelling. Sally Stewart APRN.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 documented in this encounter [facility] 12-31-2023 Note HNO ID: [id number] Author: SALLY STEWART APRN.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 Service: ? Author Type: Nurse Practitioner Type: Progress Notes Filed: 12/31/2023 19:40 Note Text: Subjective HPI Nontoxic-appearing male presents urgent care chief complaint burn. Duration of symptoms 2 days. Associated symptoms grease prieto left hand. Patient states he was cooking gale when some grease splashed up on his fourth digit right hand. Burn is on dorsal aspect between DIP and PIP joint. Has not used any OTC medications. Is not using any dressings. Overall feels well. Denies any fever body aches chills productive cough chest pain shortness of breath pleuritic pain hemoptysis nausea vomiting abdominal pain change in bowel or bladder habits. Past medical history prescription medication use and allergies reviewed. .Patient presents with: Burn: Left hand middle finger burn on gale grease x 2 days ago PAST MEDICAL HISTORY Diagnosis Date Allergic rhinitis, unspecified 07/22/2018 NEGATIVE MEDICAL HISTORY normal color vision PMH - PAST MEDICAL HISTORY OF spinal meningitis at 12 months PMH - PAST MEDICAL HISTORY OF asthma Severe persistent asthma without complication 07/22/[address] Gomez Pulmonary. Smoker 07/22/2018 PAST SURGICAL HISTORY Procedure Laterality Date CIRCUMCISION,CLAMP, ALLERGIES Penicillins and Eggs [Egg] MEDICATIONS acetic acid (VOSOL) 2 % otic solution Use 4 Drops in the left ear three times daily. (Patient not taking: Reported on 12/10/2022) cetirizine (ZYRTEC) 10 mg tablet Take 1 tablet by mouth once daily. (Patient not taking: Reported on 07/02/2023) albuterol (PROVENTIL) 2.5 mg /3 mL (0.083 %) nebulizer solution Use 3 mL via nebulizer every 4 hours as needed for wheezing/shortness of breath. Use over 5-15minutes. (Patient not taking: Reported on 07/02/2023) albuterol HFA (PROAIR HFA) 90 mcg/actuation inhaler Inhale 2 Puffs as instructed every 4 hours as needed. (Patient not taking: Reported on 07/02/2023) FAMILY HISTORY Problem Relation Age of Onset Stroke Mother Social History Tobacco Use Smoking status: Every Day Packs/day: .5 Types: Cigarettes Smokeless tobacco: Never Tobacco comments: mother smokes Vaping Use Vaping Use: Former Substance Use Topics Alcohol use: Never Drug use: Never BP 117/73 Pulse 86 Temp 36.4 ?C (97.5 ?F) Resp 18 Wt 46 kg (101 lb 6.6 oz) SpO2 100% Review of Systems Constitutional: Negative for chills, fever and malaise/fatigue. HENT: Negative for congestion, ear discharge, ear pain, sinus pain and sore throat. Eyes: Negative for blurred vision, pain, discharge and redness. Respiratory: Negative for cough, hemoptysis, sputum production, shortness of breath, wheezing and stridor. Cardiovascular: Negative for chest pain. Gastrointestinal: Negative for abdominal pain, diarrhea, nausea and vomiting. Musculoskeletal: Negative for joint pain and myalgias. Skin: Negative for itching and rash. Neurological: Negative for dizziness and headaches. Objective Physical Exam Constitutional: General: He is not in acute distress. Appearance: He is not toxic-appearing. HENT: Head: Normocephalic. Nose: Nose normal. Eyes: Pupils: Pupils are equal, round, and reactive to light. Cardiovascular: Rate and Rhythm: Normal rate. Pulmonary: Effort: Pulmonary effort is normal. No respiratory distress. Musculoskeletal: Hands: Cervical back: Normal range of motion. Comments: Approximately three-quarter centimeter by three-quarter centimeter superficial partial-thickness burn noted to the highlighted area. Burn does not extend into joint. Neurovascular intact. Full strength. Skin: General: Skin is warm and dry. Neurological: General: No focal deficit present. Mental Status: He is alert. ASSESSMENT/PLAN: 1. Superficial partial thickness burn of digit of hand - ICD9: 944.21, ICD10: T23.229A Diagnosis superficial partial-thickness burn. Will use dressing and antimicrobial red flags reevaluation discussed. Patient was educated on supportive therapies. Patient will follow up with primary care provider as needed. Patient was instructed to immediately proceed to emergency room for any new, worsening, or symptoms lasting longer than anticipated. The patient's clinical presentation is otherwise unremarkable at this time. Based on exam and clinical finding, the patient is stable for discharge. Plan of care was discussed with patient. Patient verbalizes understanding and agrees to plan of care. This note was generated using [employer] software. It may contain errors in wording, punctuation, or spelling. Sally Stewart APRN.HANDY [facility] 07-02-2023 Instructions Sally Stewart APRN.HANDY - 07/02/2023 5:58 PM EDT How to Manage Common Symptoms Associated with COVID for Adults Fever- Fever is a temperature over 100.4 F and can occur when the body is fighting an infection. To help treat a fever: Drink plenty of fluids and stay well hydrated. Eat small amounts of easy to digest food. Rest. Your body needs rest to recover, but getting up and moving around the house frequently is a good idea. You should try to continue doing your normal daily activities (bathing, toileting, grooming, cooking), though you will probably feel tired, and need to rest often. Avoid any heavy activity or exercise, as this will increase your body temperature. Dress in light clothing and stay covered in a light sheet. Keep the room temperature cool. Take a slightly warm (not cold or cool) bath, or apply damp washcloths to the forehead and wrists. Cough- Cough is a common symptom associated with COVID and can be bothersome. To help treat a cough: Stay well hydrated. Try warm water or tea with lemon and/or honey to help soothe the cough. Use a humidifier to add moisture to the air. Try a product with menthol, like a cough drop or a rub for your chest such as Vicks, which can help reduce cough. Try cough drops. Avoid smoking and other strong odors or perfumes. Try breathing exercises to keep your lungs open and clear. Take a big deep breath through your nose and hold for 5 seconds before slowly releasing. Repeat frequently, while you are awake. Congestion- Runny nose or nasal congestion can occur with COVID. Treatment can help relieve symptoms: Try OTC nasal saline spray, or nasal saline rinse to relieve mucus congestion. Nasal strips can help keep nasal passages open, to increase airflow. Elevating your head with an extra pillow in bed can help reduce congestion. Using a humidifier can increase moisture in the air, and make breathing easier. Sore Throat- Another common symptom with COVID, can be managed at home by: Stay well hydrated. Gargle with salt water - mix teaspoon salt with 1 cup of warm water and gargle. This helps to loosen mucus in the back of the throat and may reduce discomfort. Try ice chips, popsicles or lozenges to soothe the throat. Nausea/Vomiting/Diarrhea- These are common symptoms, and staying hydrated is most important. If you are nauseous or vomiting, start with small sips of water every 10-15 minutes and increase as tolerated. You can try sucking an ice cube too. If tolerating, you can try pedialyte or Gatorade, or flat sprite or marissa-raul. Start slowly and increase as you are able to. Instead of meals, try smaller, more frequent snacks. Try eating bland foods like crackers, toast, rice, and applesauce. Avoid spicy, greasy or fried foods and dairy containing foods. Even if you aren't feeling hungry due to lack of smell or taste, it is important to try to take in some food when you are able. After drinking and eating, rest in an upright position for up to two hours as needed to help decrease nauseous feelings. Try closing your eyes, avoid moving and watching TV. Avoid strong odors that can make you feel more nauseated. When to seek emergency medical attention Look for emergency warning signs for COVID-19. If having any of these symptoms, seek emergency medical care immediately: Trouble breathing Persistent pain or pressure in the chest New confusion Inability to wake or stay awake Bluish lips or face *This list is not all possible symptoms. Please call your medical provider for any other symptoms that are severe or concerning to you. documented in this encounter [facility] 07-02-2023 History of Presen t illness Narrative Subjective HPI Nontoxic-appearing male presents urgent care chief complaint flulike symptoms. Duration of symptoms 3 days. Associated symptoms with today's chief complaint are on and off headache, muscle aches, fatigue, nonproductive cough, and fever. Patient stated symptoms started abruptly. Patient states they have used dexk-mwk-qplgrap medication with some success. Patient states they were in contact with individuals who similar signs and symptoms. Patient denies any pain at this time. Patient denies any visual changes, visual disturbance, shortness of breath, rash, exercise intolerance, pleuritic pain, productive cough, abdominal pain, nausea, vomiting, chest pain, or change in bowel or bladder habits. Past medical history prescription medication use allergies reviewed. .Patient presents with: Cough: Fever, chest congestion x3 days PAST MEDICAL HISTORY Diagnosis Date Allergic rhinitis, unspecified 07/22/2018 NEGATIVE MEDICAL HISTORY normal color vision PMH - PAST MEDICAL HISTORY OF spinal meningitis at 12 months PMH - PAST MEDICAL HISTORY OF asthma Severe persistent asthma without complication 07/22/[address] Gomez Pulmonary. Smoker 07/22/2018 PAST SURGICAL HISTORY Procedure Laterality Date CIRCUMCISION,CLAMP, ALLERGIES Penicillins and Eggs [Egg] MEDICATIONS acetic acid (VOSOL) 2 % otic solution Use 4 Drops in the left ear three times daily. (Patient not taking: Reported on 12/10/2022) cetirizine (ZYRTEC) 10 mg tablet Take 1 tablet by mouth once daily. (Patient not taking: Reported on 07/02/2023) albuterol (PROVENTIL) 2.5 mg /3 mL (0.083 %) nebulizer solution Use 3 mL via nebulizer every 4 hours as needed for wheezing/shortness of breath. Use over 5-15minutes. (Patient not taking: Reported on 07/02/2023) albuterol HFA (PROAIR HFA) 90 mcg/actuation inhaler Inhale 2 Puffs as instructed every 4 hours as needed. (Patient not taking: Reported on 07/02/2023) FAMILY HISTORY Problem Relation Age of Onset Stroke Mother Social History Tobacco Use Smoking status: Every Day Packs/day: .5 Types: Cigarettes Smokeless tobacco: Never Tobacco comments: mother smokes Vaping Use Vaping Use: Former Substance Use Topics Alcohol use: Never Drug use: Never BP 118/78 Pulse 104 Temp 36.3 C (97.4 F) Resp 18 Wt 45.8 kg (101 lb) SpO2 100% Hr 87 Review of Systems Constitutional: Positive for chills, fever and malaise/fatigue. HENT: Positive for congestion and sore throat. Negative for ear discharge, ear pain and sinus pain. Eyes: Negative for blurred vision, pain, discharge and redness. Respiratory: Positive for cough. Negative for hemoptysis, sputum production, shortness of breath, wheezing and stridor. Cardiovascular: Negative for chest pain. Gastrointestinal: Negative for abdominal pain, diarrhea, nausea and vomiting. Musculoskeletal: Positive for myalgias. Skin: Negative for itching and rash. Neurological: Positive for headaches. Negative for dizziness. Objective Physical Exam Constitutional: General: He is not in acute distress. Appearance: He is not diaphoretic. HENT: Head: Normocephalic. Jaw: No trismus, tenderness, swelling or pain on movement. Nose: Congestion present. Mouth/Throat: Lips: [place]. Mouth: Mucous membranes are moist. Dentition: Abnormal dentition. Dental tenderness and dental caries present. No dental abscesses. Pharynx: Oropharynx is clear. Uvula midline. Posterior oropharyngeal erythema present. No pharyngeal swelling, oropharyngeal exudate or uvula swelling. Eyes: Conjunctiva/sclera: Conjunctivae normal. Pupils: Pupils are equal, round, and reactive to light. Cardiovascular: Rate and Rhythm: Normal rate and regular rhythm. Heart sounds: Normal heart sounds. Pulmonary: Effort: Pulmonary effort is normal. No tachypnea, accessory muscle usage or respiratory distress. Breath sounds: Normal breath sounds. No stridor. No wheezing, rhonchi or rales. Abdominal: General: There is no distension. Palpations: Abdomen is soft. Tenderness: There is no abdominal tenderness. There is no guarding or rebound. Musculoskeletal: Cervical back: Normal range of motion and neck supple. No edema, erythema, rigidity or tenderness. No pain with movement. Normal range of motion. Lymphadenopathy: Cervical: No cervical adenopathy. Skin: General: Skin is warm and dry. Neurological: Mental Status: He is alert and oriented to person, place, and time. ASSESSMENT/PLAN: 1. Pharyngitis, unspecified etiology - ICD9: 462, ICD10: J02.9 (primary diagnosis) - STREP A MOLECULAR (POC) - COVID & INFLUENZA A/B NAAT, ROUTINE 2. Viral illness - ICD9: 079.99, ICD10: B34.9 - COVID & INFLUENZA A/B NAAT, ROUTINE Strep test negative. Test for influenza COVID-19. Treat accordingly test results. Red flags prompt valuation discussed. Patient was educated on supportive therapies. Patient will follow up with primary care provider as needed. Patient was instructed to immediately proceed to emergency room for any new, worsening, or symptoms lasting longer than anticipated. The patient's clinical presentation is otherwise unremarkable at this time. Based on exam and clinical finding, the patient is stable for discharge. Plan of care was discussed with patient. Patient verbalizes understanding and agrees to plan of care. This note was generated using [employer] software. It may contain errors in wording, punctuation, or spelling. Sally Stewart APRN.HANDY documented in this encounter [facility] 12-10-2022 History of Presen t illness Narrative Subjective HPI Nontoxic-appearing male presents urgent care chief complaint fatigue loose stools. Patient states over the weekend he had fatigue diarrhea body aches chills fever. 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 States he has been fever free since Wednesday. 1 loose stool today. States feeling better. No abdominal pain. Blood in stool. Denies any fever body aches chills productive cough chest pain shortness of breath pleuritic pain hemoptysis nausea vomiting abdominal pain or rashes. Past medical history prescription medication use and allergies reviewed. .Patient presents with: Diarrhea: Pt reported fatigue, Hx nausea. PAST MEDICAL HISTORY Diagnosis Date Allergic rhinitis, unspecified 07/22/2018 NEGATIVE MEDICAL HISTORY normal color vision PMH - PAST MEDICAL HISTORY OF spinal meningitis at 12 months PMH - PAST MEDICAL HISTORY OF asthma Severe persistent asthma without complication 07/22/[address] Gomez Pulmonary. Smoker 07/22/2018 PAST SURGICAL HISTORY Procedure Laterality Date CIRCUMCISION,CLAMP, ALLERGIES Penicillins and Eggs [Egg] MEDICATIONS acetic acid (VOSOL) 2 % otic solution Use 4 Drops in the left ear three times daily. (Patient not taking: Reported on 12/10/2022) cetirizine (ZYRTEC) 10 mg tablet Take 1 tablet by mouth once daily. albuterol (PROVENTIL) 2.5 mg /3 mL (0.083 %) nebulizer solution Use 3 mL via nebulizer every 4 hours as needed for wheezing/shortness of breath. Use over 5-15minutes. albuterol HFA (PROAIR HFA) 90 mcg/actuation inhaler Inhale 2 Puffs as instructed every 4 hours as needed. FAMILY HISTORY Problem Relation Age of Onset Stroke Mother Social History Tobacco Use Smoking status: Every Day Packs/day: 0.50 Types: Cigarettes Smokeless tobacco: Never Tobacco comments: mother smokes Vaping Use Vaping Use: Former Substance Use Topics Alcohol use: Never Drug use: Never BP 112/60 Pulse 85 Temp 37.2 C (98.9 F) (Tympanic) Resp 16 Wt 48.1 kg (106 lb) SpO2 98% Review of Systems Constitutional: Negative for chills, fever and malaise/fatigue. HENT: Negative for congestion, ear discharge, ear pain, sinus pain and sore throat. Eyes: Negative for blurred vision, pain, discharge and redness. Respiratory: Negative for cough, hemoptysis, sputum production, shortness of breath, wheezing and stridor. Cardiovascular: Negative for chest pain. Gastrointestinal: Negative for abdominal pain, diarrhea, nausea and vomiting. Musculoskeletal: Negative for myalgias. Skin: Negative for itching and rash. Neurological: Negative for dizziness and headaches. Objective Physical Exam Constitutional: General: He is not in acute distress. Appearance: He is not diaphoretic. HENT: Head: Normocephalic. Eyes: Conjunctiva/sclera: Conjunctivae normal. Pupils: Pupils are equal, round, and reactive to light. Cardiovascular: Rate and Rhythm: Normal rate and regular rhythm. Heart sounds: Normal heart sounds. Pulmonary: Effort: Pulmonary effort is normal. No tachypnea, accessory muscle usage or respiratory distress. Breath sounds: Normal breath sounds. No stridor. Abdominal: General: There is no distension. Palpations: Abdomen is soft. Tenderness: There is no abdominal tenderness. There is no guarding or rebound. Musculoskeletal: Cervical back: Normal range of motion. Skin: General: Skin is warm and dry. Neurological: Mental Status: He is alert and oriented to person, place, and time. ASSESSMENT/PLAN: 1. Loose stools - ICD9: 787.7, ICD10: R19.5 Patient diagnosed loose stools. Symptoms progressively improving. Supportive therapies discussed. Red flags discussed. Follow-up with PCP as needed. Be seen urgent care or ED for any new worsening or symptoms lasting along anticipated. Patient verbalized understand agrees with plan of care. Sally Stewart APRN.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 documented in this encounter [facility] 11-12-2022 Instructions Alix Perez - 11/12/2022 9:43 AM EST OTITIS EXTERNA This is a superficial infection of the skin of the outer ear canal which may also be referred to as swimmers ear. To hasten the healing, please observe the followin. Use topical drops as prescribed. Tilt the head far to the side, insert the appropriate amount of drops and remain in the same position for about a minute. Tugging the ear back and up will help the drops get into the ear canal easier. You may find another person can help with this. 2. Do not scratch the ear or use Q-Tips. 3. Keep water out of the ear. Use a clean cotton ball mashed with Vaseline to cover the ear canal when the ear may be exposed to water. Discuss any plans to swim with your doctor. You should notice marked improvement in your symptoms within a day or two. If pain increases, redness or swelling appears around the ear or on the face, or the ear blocks up completely and will not clear at all, please call our office. Occasionally, since both bacteria and fungus can contribute to these infections, a re-examination, cleaning and medication adjustment may be needed. Complete healing depends on the ear resuming its natural production of earwax, which functions as a natural waterproofing and antibacterial barrier. This may take several weeks. Continuing to keep your ear dry for at least two weeks will lessen the chance of re-infection. ASSESSMENT/PLAN: 1. Acute otitis externa of left ear, unspecified type - ICD9: 380.10, ICD10: H60.502 - Acetic Acid 2%. 4 drops in L ear three times a day until resolved Alix Perez APRN-student documented in this encounter [facility] 11-12-2022 History of Presen t illness Narrative Subjective HPI ROS Objective Physical Exam Images from the original note were not included. This note was created using [employer]. Subjective Gordon Addison is a 27 year old male who presents with 4 days of left ear pain and pressure. Pain described as 2/10 and notes this feel similar to the last ear infection he had. Denies ear drainage. Reports his hearing in his left ear is more dull than normal. Review of Systems Constitutional: Negative for fever. HENT: Positive for congestion, ear pain and hearing loss. Negative for ear discharge, rhinorrhea, sinus pressure, sinus pain and sore throat. Eyes: Negative for pain, discharge and itching. Respiratory: Negative for cough, shortness of breath and wheezing. Cardiovascular: Negative for chest pain. Gastrointestinal: Negative for diarrhea, nausea and vomiting. Neurological: Negative for headaches. PAST MEDICAL HISTORY Diagnosis Date Allergic rhinitis, unspecified 07/22/2018 NEGATIVE MEDICAL HISTORY normal color vision PMH - PAST MEDICAL HISTORY OF spinal meningitis at 12 months PMH - PAST MEDICAL HISTORY OF asthma Severe persistent asthma without complication 07/22/[address] Gomez Pulmonary. Smoker 07/22/2018 PAST SURGICAL HISTORY Procedure Laterality Date CIRCUMCISION,CLAMP, ALLERGIES Penicillins and Eggs [Egg] MEDICATIONS cetirizine (ZYRTEC) 10 mg tablet Take 1 tablet by mouth once daily. albuterol (PROVENTIL) 2.5 mg /3 mL (0.083 %) nebulizer solution Use 3 mL via nebulizer every 4 hours as needed for wheezing/shortness of breath. Use over 5-15minutes. albuterol HFA (PROAIR HFA) 90 mcg/actuation inhaler Inhale 2 Puffs as instructed every 4 hours as needed. acetic acid (VOSOL) 2 % otic solution Use 4 Drops in the left ear three times daily. FAMILY HISTORY Problem Relation Age of Onset Stroke Mother Social History Tobacco Use Smoking status: Every Day Packs/day: 0.50 Types: Cigarettes Smokeless tobacco: Never Tobacco comments: mother smokes Vaping Use Vaping Use: Former Substance Use Topics Alcohol use: Never Drug use: Never Objective BP 110/60 Pulse 118 Temp 37.2 C (98.9 F) (Tympanic) Resp 18 Wt 48.2 kg (106 lb 3.2 oz) SpO2 97% Physical Exam Vitals reviewed. Constitutional: General: He is not in acute distress. Appearance: He is not ill-appearing. HENT: Head: Normocephalic and atraumatic. Right Ear: Hearing, tympanic membrane and external ear normal. No drainage or tenderness. There is impacted cerumen. Left Ear: Tympanic membrane normal. Decreased hearing noted. Tenderness present. No drainage. No middle ear effusion. There is impacted cerumen. No mastoid tenderness. Tympanic membrane is not injected, scarred, perforated or erythematous. Mouth/Throat: Lips: [place]. Mouth: Mucous membranes are moist. Dentition: Abnormal dentition. Dental caries present. Pharynx: Oropharynx is clear. Uvula midline. Comments: Brown coating covering entirety of tongue as marked Cardiovascular: Rate and Rhythm: Regular rhythm. Tachycardia present. Pulmonary: Effort: Pulmonary effort is normal. Breath sounds: Normal breath sounds. Lymphadenopathy: Cervical: No cervical adenopathy. Skin: General: Skin is warm. Neurological: Mental Status: He is alert. Assessment and Plan 1. Acute otitis externa of left ear, unspecified type - ICD9: 380.10, ICD10: H60.502 - Acetic Acid 2%. 4 drops in L ear three times a day until resolved Alix Perez APRN-student TEACHING PROVIDER (Physician/PA/VP REVENUE CYCLE) NOTE OF PERSONAL INVOLVEMENT IN CARE: I have personally seen and examined the patient and performed the medical decision-making components. I have reviewed the Advanced Practice Registered Nurse (VP REVENUE CYCLE) Student's documentation and verified the findings in the note as written. Any additions or changes are noted in bold/italics. Signature: Melba Jones Date: 11/12/2022 Time: 9:51 AM documented in this encounter [facility] 10-15-2022 History of Presen t illness Narrative This note was created using [employer]. Subjective Gordon Addison is a 27 year old male. HPI Patient presents with abdominal cramping and diarrhea since this morning. He has had 4 bouts of watery diarrhea. No blood in stool. He ate a taco/macaroni and cheese dish at 530 this morning and since then has not felt well. No fever. No vomiting or diarrhea. He denies any recent travel. No recent antibiotics. Denies cough or congestion. 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 Review of Systems Constitutional: Positive for fatigue. HENT: Negative. Respiratory: Negative. Cardiovascular: Negative. Gastrointestinal: Positive for abdominal pain and diarrhea. Negative for anal bleeding, blood in stool, constipation, nausea and vomiting. Genitourinary: Negative. Musculoskeletal: Negative. Skin: Negative. Neurological: Negative. All other systems reviewed and are negative. PAST MEDICAL HISTORY Diagnosis Date Allergic rhinitis, unspecified 07/22/2018 NEGATIVE MEDICAL HISTORY normal color vision PMH - PAST MEDICAL HISTORY OF spinal meningitis at 12 months PMH - PAST MEDICAL HISTORY OF asthma Severe persistent asthma without complication 07/22/[address] Gomez Pulmonary. Smoker 07/22/2018 Current Outpatient Medications Medication Sig Dispense Refill cetirizine (ZYRTEC) 10 mg tablet Take 1 tablet by mouth once daily. 30 tablet 0 albuterol (PROVENTIL) 2.5 mg /3 mL (0.083 %) nebulizer solution Use 3 mL via nebulizer every 4 hours as needed for wheezing/shortness of breath. Use over 5-15minutes. 432 mL 1 albuterol HFA (PROAIR HFA) 90 mcg/actuation inhaler Inhale 2 Puffs as instructed every 4 hours as needed. 1 Each 0 No current facility-administered medications for this visit. PAST SURGICAL HISTORY Procedure Laterality Date CIRCUMCISION,CLAMP, FAMILY HISTORY Problem Relation Age of Onset Stroke Mother Social History Tobacco Use Smoking status: Every Day Packs/day: 0.50 Types: Cigarettes Smokeless tobacco: Never Tobacco comments: mother smokes Vaping Use Vaping Use: Former Substance Use Topics Alcohol use: Never Objective BP 114/62 Pulse 68 Temp 37.1 C (98.7 F) (Tympanic) Resp 16 Wt 49.6 kg (109 lb 6.4 oz) SpO2 99% Physical Exam Vitals reviewed. Constitutional: Appearance: Normal appearance. HENT: Head: Normocephalic and atraumatic. Mouth/Throat: Mouth: Mucous membranes are moist. Pharynx: Oropharynx is clear. Cardiovascular: Rate and Rhythm: Normal rate and regular rhythm. Heart sounds: Normal heart sounds. Pulmonary: Effort: Pulmonary effort is normal. Breath sounds: Normal breath sounds. Abdominal: General: Abdomen is flat. Palpations: Abdomen is soft. Tenderness: There is no right CVA tenderness or left CVA tenderness. Comments: Mild epigastric tenderness on palpation. No guarding or rebound. Bowel sounds active. Abdomen soft and nondistended. Skin: General: Skin is warm and dry. Findings: No rash. Neurological: General: No focal deficit present. Mental Status: He is alert and oriented to person, place, and time. Assessment and Plan ASSESSMENT/PLAN: 1. Diarrhea, unspecified type - ICD9: 787.91, ICD10: R19.7 Viral vs food related. Discussed trying pepto otc. If diarrhea persists past 5-7 days, he has blood in stool, fever or other worsening symptoms be seen again. Abdomen benign on exam today. BRAT diet discussed. - COVID WITH FLUA+B, ROUTINE Skye Maradiaga PA-C documented in this encounter [facility] 06-05-2022 Instructions Rach Lay APRN.CNP - 06/05/2022 4:19 PM EDT Possible allergies Reaction to hairspray Use albuterol inhaler/nebulizer as ordered Will check covid test, if negative and still wheezing after using albuterol, will add prednisone. Zyrtec 10 mg By mouth daily at bedtime * Seek medical care immediately, call 911, go to ER if you have chest pain, difficulty breathing, shortness of breath, inability to swallow. documented in this encounter [facility] 06-05-2022 History of Presen t illness Narrative Subjective The history is provided by the patient. No foreign language interpreter was used. HPI Gordon Addison is a 26 year old male who presents today for CC of cough and nasal congestion. This started 2 days ago. He is also having wheezing. He does have a h/o asthma. No known exposure to covid or other viral illness. He states he thinks he has allergies, has noticed a change, with weather, as well as he was at a salon a few days before started. BP 118/78 Pulse 98 Temp 36.7 C (98 F) (Tympanic) Resp 16 Wt 49.3 kg (108 lb 9.6 oz) SpO2 99% Social History Tobacco Use Smoking status: Every Day Packs/day: 0.50 Types: Cigarettes Smokeless tobacco: Never Tobacco comments: mother smokes Vaping Use Vaping Use: Former PAST MEDICAL HISTORY Diagnosis Date Allergic rhinitis, unspecified 07/22/2018 NEGATIVE MEDICAL HISTORY normal color vision PMH - PAST MEDICAL HISTORY OF spinal meningitis at 12 months PMH - PAST MEDICAL HISTORY OF asthma Severe persistent asthma without complication 07/22/[address] Gomez Pulmonary. Smoker 07/22/2018 I have confirmed and edited as necessary, the [facility] Review of Systems Constitutional: Negative for chills, fever and malaise/fatigue. HENT: Positive for congestion. Negative for ear pain, sinus pain and sore throat. Respiratory: Positive for cough and wheezing. Negative for sputum production and shortness of breath. Cardiovascular: Negative for chest pain. Gastrointestinal: Negative for abdominal pain, diarrhea, nausea and vomiting. Musculoskeletal: Negative for myalgias. Neurological: Negative for headaches. Objective Physical Exam Vitals and nursing note reviewed. HENT: Head: Normocephalic and atraumatic. Right Ear: Tympanic membrane, ear canal and external ear normal. Left Ear: Tympanic membrane, ear canal and external ear normal. Nose: Mucosal edema, congestion and rhinorrhea present. Right Sinus: No maxillary sinus tenderness or frontal sinus tenderness. Left Sinus: No maxillary sinus tenderness or frontal sinus tenderness. Mouth/Throat: Pharynx: Uvula midline. No oropharyngeal exudate or posterior oropharyngeal erythema. Tonsils: No tonsillar abscesses. Cardiovascular: Rate and Rhythm: Normal rate and regular rhythm. Heart sounds: Normal heart sounds. Pulmonary: Effort: Pulmonary effort is normal. Breath sounds: Normal breath sounds. No decreased breath sounds, wheezing, rhonchi or rales. Lymphadenopathy: Head: Right side of head: No submental, submandibular, tonsillar or preauricular adenopathy. Left side of head: No submental, submandibular, tonsillar or preauricular adenopathy. Cervical: No cervical adenopathy. Right cervical: No superficial cervical adenopathy. Left cervical: No superficial cervical adenopathy. Skin: General: Skin is warm and dry. Neurological: Mental Status: He is alert and oriented to person, place, and time. Psychiatric: Mood and Affect: Affect normal. ASSESSMENT/PLAN: 1. Acute cough - ICD9: 786.2, ICD10: R05.1 (primary diagnosis) Albuterol inhaler/neb prn, Mucinex DM - 2019 CORONAVIRUS 2. Nasal congestion - ICD9: 478.19, ICD10: R09.81 Mucinex DM - 2019 CORONAVIRUS 3. Wheezing - ICD9: 786.07, ICD10: R06.2 None heard at visit, increase albuterol inhaler, nebulizer If covid positive and feels that he is still wheezing could consider prednisone burst 4. Suspected COVID-19 virus infection - ICD9: V01.79, ICD10: Z20.822 Home isolation Testing ordered Comfort measures discussed - see patient instructions. When to seek higher level of care Notified in 24-48 hours with results, available on [email or web address] CORONAVIRUS Diagnosis and treatment plan were discussed and questions were answered to the patient's satisfaction. Pt acknowledged understanding of concepts and follow up plan. Specific signs and symptoms that would indicate the need for higher level of care were discussed in detail warranting prompt ER evaluation. Rach Lay APRN.CNP documented in this encounter [facility] 03-18-2021 History of Presen t illness Narrative Radiology Service Progress Note PATIENT NAME: Gordon Addison DATE OF SERVICE: March 18, 2021 TIME: 5:44 PM PATIENT IDENTITY VERIFICATION COMPLETED USING TWO (2) IDENTIFIERS: Name and Date of confirmed by patient verbally. FALL SCREENING: Has the patient had 2 falls in the last year or 1 fall with injury or currently using an Ambulatory Assistive Device (Walker, Cane, Wheelchair, Crutches, etc.)? No PATIENT GENDER DATA: Male PATIENT RELEVANT IMPLANT DATA REVIEWED: Not Applicable RADIOLOGY DEPARTMENT: General X-ray: Exam(s) Completed: Chest X-Ray PERIPHERAL IV DATA: Not applicable SIGNED BY: RT Isa(R) March 18, 2021 5:44 PM documented in this encounter [facility] Evaluation note Diagnosis Acute cough- Primary Nasal congestion Other diseases of nasal cavity and sinuses Wheezing Suspected COVID-19 virus infection [facility] Diagnosis Diarrhea, unspecified type- Primary [facility] Diagnosis Acute otitis externa of left ear, unspecified type- Primary [facility] Diagnosis Loose stools- Primary Abnormal feces [facility] Diagnosis Pharyngitis, unspecified etiology- Primary Viral illness Unspecified viral infection, in conditions classified elsewhere and of unspecified site [facility] Diagnosis Moderate persistent asthma with (acute) exacerbation- Primary [facility] Diagnosis Headache, unspecified headache type- Primary Injury of head, subsequent encounter Tachycardia Tachycardia, unspecified Right atrial enlargement Cardiomegaly Tobacco use Tobacco use disorder 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 [facility] Diagnosis Encounter for medical examination to establish care- Primary TERI (generalized anxiety disorder) Generalized anxiety disorder Bipolar affective disorder, current episode mixed, current episode severity unspecified (HCC) Intermittent asthma without complication, unspecified asthma severity Tobacco use Tobacco use disorder [facility] Diagnosis Vitamin D deficiency- Primary Unspecified vitamin D deficiency [facility] Diagnosis Lower resp. tract infection- Primary Other diseases of respiratory system, not elsewhere classified [facility] Outpatient Procedure (Routine) - New Request Specialty Diagnoses / Procedures Referred By Contac t Referred To [facility] Diagnoses Tachycardia Procedures ECG COMPLETE ECG ROUTINE ECG W/LEAST 12 LDS W/I&R Daryn Gtz MD [address] [place] [address] [facility] [address] [place] [id number] Referral ID Status Reason Start Date Expiration Date Visits Requested Visits Authorized [id number] New Request Auto-Generat ed Referral 05/11/2024 05/11/2025 1 1 [facility] Procedure (Routine) - Authorized Specialty Diagnoses / Procedures Referred By Contac t Referred To Contact [facility] Diagnoses Intermittent asthma without complication, unspecified asthma severity Procedures SPIROMETRY - BASELINE AND POST DILATOR BRNCDILAT RSPSE SPMTRY PRE&POST-BRNCDILAT ADMN Daryn Gtz MD [address] [place] [address] [facility] [address] [place] [address] Referral ID Status Reason Start Date Expiration Date Visits Requested Visits Authorized [id number] Authorized Auto-Generat ed Referral 06/26/2024 07/26/2025 1 1 [facility] Health Concerns Infection Onset Date Last Indicated Resolved Time COVID-19 Rule-Out 06/05/2022 06/05/2022 Infection Onset Date Last Indicated Resolved Time COVID-19 Rule-Out 10/15/2022 10/15/2022 Infection Onset Date Last Indicated Resolved Time COVID-19 Rule-Out 07/02/2023 07/02/2023 Summary Purpose Family History No Family History Records Found Advance Directives No Advanced Directives Records Found Additional Source Comments Source Comments (unrecognize d section and content) In the event this informatio n is protected by the Federal Confidentiality of Alcohol and Drug Abuse Patient Records regulations: The Federal rules restrict any use of the information to criminally investigate or prosecute any alcohol or drug abuse patient.[facility] the event this information is protected by the Federal Confidentiality of Alcohol and Drug Abuse Patient Records regulations: The Federal rules restrict any use of the information to criminally investigate or prosecute any alcohol or drug abuse patient.[facility] the event this information is protected by the Federal Confidentiality of Alcohol and Drug Abuse Patient Records regulations: The Federal rules restrict any use of the information to criminally investigate or prosecute any alcohol or drug abuse patient.[facility] the event this information is protected by the Federal Confidentiality of Alcohol and Drug Abuse Patient Records regulations: The Federal rules restrict any use of the information to criminally investigate or prosecute any alcohol or drug abuse patient.[facility] the event this information is protected by the Federal Confidentiality of Alcohol and Drug Abuse Patient Records regulations: The Federal rules restrict any use of the information to criminally investigate or prosecute any alcohol or drug abuse patient.[facility] the event this information is protected by the Federal Confidentiality of Alcohol and Drug Abuse Patient Records regulations: The Federal rules restrict any use of the information to criminally investigate or prosecute any alcohol or drug abuse patient.[facility] the event this information is protected by the Federal Confidentiality of Alcohol and Drug Abuse Patient Records regulations: The Federal rules restrict any use of the information to criminally investigate or prosecute any alcohol or drug abuse patient.[facility] the event this information is protected by the Federal Confidentiality of Alcohol and Drug Abuse Patient Records regulations: The Federal rules restrict any use of the information to criminally investigate or prosecute any alcohol or drug abuse patient.[facility] the event this information is protected by the Federal Confidentiality of Alcohol and Drug Abuse Patient Records regulations: The Federal rules restrict any use of the information to criminally investigate or prosecute any alcohol or drug abuse patient.[facility] the event this information is protected by the Federal Confidentiality of Alcohol and Drug Abuse Patient Records regulations: The Federal rules restrict any use of the information to criminally investigate or prosecute any alcohol or drug abuse patient.[facility] the event this information is protected by the Federal Confidentiality of Alcohol and Drug Abuse Patient Records regulations: The Federal rules restrict any use of the information to criminally investigate or prosecute any alcohol or drug abuse patient.[facility] Reason for Visit (unrecogniz ed section and content) Reason Comments Cough Cough, chest congest ion and wheezing x 2 days Reason Comments Diarrhea Pt reported onset AM . Reason Comments Ear Pain Pt reported (LT) ear pain rated 2, x2 days. Reason Comments Diarrhea Pt reported fatigue, Hx nausea. Reason Comments Cough Fever, chest congest ion x3 days Reason Comments Asthma Reason Comments ER F/U Post concussion- loo bryan for 2nd opinion Reason Comments Establish Care Reason Comments Results Reason Comments Cough Chest congestion, fe sandi x4 days Care Teams (unrecognized sec tion and content) [employer] Relationship Specialty Start Date End Date Daryn Gtz MD [address] [place] [address] PCP - General Family Medicine 06/26/24 [employer] Relationship Specialty Start Date End Date Daryn Gtz MD [address] [place], [place] [address] PCP - General Family Medicine 06/26/24 [employer] Relationship Specialty Start Date End Date Daryn Gtz MD [address] [facility] [place] [id number] PCP - General Family Medicine 06/26/24 (unrecognized sect ion and content) No Status Records Found INFORMATION SOURCE (unrecogn ized section and content) DATE CREATED AUTHOR 07/25/2024 [facility] FOR RECORDS PERTAINING TO PATIENTS WHO ARE OR HAVE BEEN ENROLLED IN A CHEMICAL DEPENDENCY/SUBSTANCEABUSE PROGRAM, SOME INFORMATION MAY BE OMITTED. This clinical summary was aggregated from multiple sources. Caution should be exercised in using it in the provision of clinical care. This summary normalizes information from multiple sources, and as a consequence, information in this document may materially change the coding, format and clinical context of patient data. In addition, data may be omitted in some cases. CLINICAL DECISIONS SHOULD BE BASED ON THE PRIMARY CLINICAL RECORDS. [facility] [employer] [facility]. provides no warranty or guarantee of the accuracy or completeness of information in this document.
--- NOTE | 2025-03-16 22:43 | EX.ED.UPPERE ---
HPI History of Present Illness Chief Complaint: Burn Informant: patient Narrative Narrative: Patient states he works at [employer] and he sustained a small burn to his right middle finger from gale grease that splashed onto his finger. He states this occurred about a week ago. He states initially there was some yellow-green layer on the top, and today he accidentally scraped it off and was concerned and wanted to make sure it is not getting infected. He does not have any pain or significant discharge. [facility] Medical History Anxiety Tobacco abuse Asthma Home Medications ?Medication ?Instructions ?Recorded ?Last Taken ?Type NK 06/28/24 Unknown History Allergy/AdvReac Type Severity Reaction Status Date / Time cat dander (cats) Allergy Intermediate Inflammation Verified 03/16/25 21:53 of lung egg Allergy Rash Verified 03/16/25 21:53 Penicillins Allergy Rash Verified 03/16/25 21:53 Family History Father Heart disease Social History household members: significant other housing: apartment Smoking Status: Current every day smoker tobacco type: cigarettes ROS ROS ED Constitutional Constitutional ED: Denies chills or fever(s) Musculoskeletal Musculoskeletal: Reports extremity pain; Denies neck pain Integumentary Reports wounds; Denies Abrasions or rash Neurologic Neurologic: Denies paresthesias or weakness EXAM Physical Exam Const Vital Signs: 03/16/25 21:52 Temperature 98.7 F Temperature Source Oral Pulse Rate 77 Respiratory Rate 16 Blood Pressure 116/67 Blood Pressure Mean 83 Pulse Ox 100 Oxygen Delivery Method Room Air Positive well nourished and well developed General Appearance ED: well developed and NAD Neck full ROM and supple Back/Spine normal ROM and normal to inspection Neuro oriented x3, no focal motor deficits and no sensory deficits noted Sensorium / Orientation: alert Psych mental status grossly normal and thought process normal Skin Skin Narrative: Small subcentimeter healing burn dorsal right middle finger no tenderness, no lymphangitis, no sign of infection. Rashes: no rashes MDM MDM MDM Narrative Medical decision making narrative: Patient is reassured. This appears partial-thickness, there is granulation tissue within, there is no sign of infection, he has a Band-Aid on it and I am having nursing clean it and place a new one with bacitracin he was instructed to continue doing the same and keep it protected at work. Discharge Plan Triage Chief Complaint: Burn ED Provider: Chung Vallejo Dx/Rx/DC Orders Clinical Impression: Partial thickness burn of right middle finger, Encounter for post-traumatic wound check Instructions: ED Burn Wound Check No Infect Prescriptions: No Action NK Stand Alone Forms: Work Status Form Primary Care Provider: Moustapha Gtz Referrals: [facility] [Group of Physicians] - As Needed Print Language: Romansh Disposition Disposition: Home, Self Care
[2025-03-16 22:53] VITALS: BP 116/67; PULSE 77; RESP 16; TEMP 37.1; O2SAT 100
== END 2025-03-16 22:56 | disposition home or self-care (01) ==
PROVIDERS: Emergency Provider Emergency Medicine; PCP Family Medicine; Visit Provider Emergency Medicine
DX: T23.221A Burn of second degree of single right finger (nail) except thumb, initial encounter (principal); F17.210 Nicotine dependence, cigarettes, uncomplicated; X58.XXXA Exposure to other specified factors, initial encounter
CPT/HCPCS: 99282

== ENCOUNTER 2025-04-18 10:00 | Emergency (ER) | payer MEDICAID, SELFPAY ==
[2025-04-18 10:02] VITALS: BP 117/76; PULSE 95; RESP 16; TEMP 36.6; O2SAT 100; BMI 17.7
--- NOTE | 2025-04-18 10:50 | EDS_ITS ---
HPI History of Present Illness Chief Complaint: Palpitations Detail of Chief Complaint: Palpitations and anxiousness Informant: patient Onset/Context/Timing Onset: Today Context: Sudden Onset Timing: Intermittent Quality: Fast heart rate when he was walking. He was waiting for news regarding new Location: Residence Current Severity: Gone Maximum Severity: Moderate Worsened by: Stress related to new job Relieved by: Not applicable Associated Symptoms Associated Symptoms: Heart rate of 109. Patient states he was walking at the time. Narrative Narrative: Patient is a 29-year-old male. He has no significant past medical history. He is on BuSpar. He does have history of anxiety and depression. Patient presently works at [employer]. He is scheduled to start a new job at [employer] He is waiting for information regarding training. He apparently became anxious. He noted his heart rate was fast. Today his heart rate was 109. He was [place]yl[place] at the time. He denies chest discomfort. Denies shortness of breath. He denied diaphoresis. He denied nausea or vomiting. He has no history of MVP. He has no history of VTE. He denies leg pain, swelling discoloration. He has no weight gain or weight loss. He has no symptoms of hyperthyroidism. Prior similar symptoms: Yes Recent Illness/Hospitalization: No PFSH PFSH Medical History Anxiety Tobacco abuse Asthma Home Medications ?Medication ?Instructions ?Recorded ?Last Taken ?Type buspirone 7.5 mg tablet 7.5 mg PO BID 04/18/25 Unkno wn History Allergy/AdvReac Type Severity Reaction Status Date / Time cat dander (cats) Allergy Intermediate Inflammation Verified 04/18/25 10:03 of lung egg Allergy Rash Verified 04/18/25 10:03 Penicillins Allergy Rash Verified 04/18/25 10:03 Family History Father Heart disease Social History household members: significant other housing: apartment Smoking Status: Current every day smoker tobacco type: cigarettes ROS ROS ED Constitutional Constitutional ED: Denies chills, fever(s), subjective, sweats or weight loss Eyes Eyes: Denies change in vision Cardiovascular Cardiovascular: Reports palpitations and racing heartbeat; Denies chest pain Respiratory/Chest Respiratory/Chest: Denies cough, dyspnea or dyspnea on exertion Gastrointestinal Gastrointestinal: Denies abdominal pain, nausea or vomiting Psychiatric Psychiatric: Reports anxiety Hematologic/Lymphatic Hematologic/Lymphatic: Reports systems reviewed and no addt'l complaints, except as documented EXAM Physical Exam Const Vital Signs: 04/18/25 10:02 04/18/25 10:07 Temperature 97.8 F Temperature Source Temporal Pulse Rate 95 Respiratory Rate 16 Respiratory Effort Normal Blood Pressure 117/76 Blood Pressure Mean 89 Pulse Ox 100 Oxygen Delivery Method Room Air Positive well nourished and well developed Constitutional Narrative: Patient is thin with a BMI of 17.8. General Appearance ED: well developed and pallor HEENT Reports moist mucous membranes HEENT Narrative: HEENT is grossly unremarkable. Eyes PERRL and EOMs intact bilaterally General Eye ED: Negative for scleral icterus Chest Wall palpation of chest normal Resp normal respiratory effort and clear to auscultation bilaterally Cardio regular rate, regular rhythm, S2 normal heart sound and no murmurs Rate: other Other Details: There is no click to suggest MVP. Extremity normal to inspection General Extremety ED: Negative for edema or tenderness General Extremity: Negative for edema Neuro oriented x3 and CN's II-XII intact bilaterally Sensorium / Orientation: alert Psych Mood & Affect: anxious Skin no rashes or lesions noted, no wounds and skin turgor normal General Skin Exam: pallor; Negative for elasticity normal or jaundice MDM MDM MDM Narrative Medical decision making narrative: Vital signs are normal. Patient appears slightly anxious. He is thin. He states he is always been thin. He said no weight loss. There is no concern for hyperthyroidism. Patient placed on a monitor. He was observed for 30 minutes. He had no ectopy. Therefore will discharge to home. Discharge Plan Triage Chief Complaint: Palpitations ED Provider: Kendrick Page Dx/Rx/DC Orders Clinical Impression: Anxiety reaction, Encounter for medical screening examination Instructions: ED Anxiety Reaction Prescriptions: No Action buspirone 7.5 mg tablet 7.5 mg PO BID Primary Care Provider: Moustapha Gtz Referrals: Moustapha Gtz MD [Primary Care Provider] - As Needed Print Language: Chadian Disposition Disposition: Home, Self Care
[2025-04-18 11:00] VITALS: BP 103/62; PULSE 75; RESP 17; O2SAT 100
[2025-04-18 11:03] VITALS: BP 103/62; PULSE 75; RESP 17; TEMP 36.6; O2SAT 100
== END 2025-04-18 11:03 | disposition home or self-care (01) ==
PROVIDERS: Emergency Provider Emergency Medicine; PCP Family Medicine; Visit Provider Emergency Medicine
DX: F41.1 Generalized anxiety disorder (principal); F17.210 Nicotine dependence, cigarettes, uncomplicated; Z79.899 Other long term (current) drug therapy
CPT/HCPCS: 99283

== ENCOUNTER 2025-06-16 21:33 | Emergency (ER) | payer MEDICAID, SELFPAY ==
[2025-06-16 21:34] VITALS: BP 113/70; PULSE 84; RESP 16; TEMP 36.7; O2SAT 100; BMI 19.5
--- NOTE | 2025-06-16 21:44 | EKG12_ITS ---
Test Reason : DYSRHYTHMIA Blood Pressure : */* mmHG Vent. Rate : 81 BPM Atrial Rate : 81 BPM P-R Int : 140 ms QRS Dur : 78 ms QT Int : 344 ms P-R-T Axes : 74 78 67 degrees QTcB Int : 399 ms Normal sinus rhythm NORMAL Confirmed by Brian Amaya ([id number]), content editor BASHIR MAIN ([id number]) on 06/18/2025 1:20:22 PM Referred By: Confirmed By: Brian Amaya
--- NOTE | 2025-06-16 21:45 | EDS_ITS ---
HPI HPI - Psych History of Present Illness Chief Complaint: Anxiety Detail of Chief Complaint: Chest pain due to anxiety, work was super hectic . Informant: patient Onset/Context/Timing Onset: Today Context: Sudden Onset Timing: Intermittent and Waxes and wanes Current Severity: Mild Maximum Severity: Severe Worsened by: Situational factors (Patient works at [employer] and it was super hectic .) Relieved by: Nothing. Patient declined to take Xanax that he was prescribed Associated Symptoms Associated Symptoms - Psych: Positive for Depressed and - (Palpitations and feeling stressed); Negative for Change in Eating, Change in sleeping, Decreased Interest, Guilt, Decreased Concentration, Hopelessness, Suicidal Thoughts, Easily distracted, Grandiosity, Flight of Ideas, Increased activity, Pressured Speech, Agitated, Paranoia, Visual Hallucinations or Auditory Hallucinations Specific plan (suicidal thought): Not applicable Narrative Narrative: patient is a 29-year-old male. He has history of anxiety disorder, asthma, tobacco use. He presents because of palpitations that started this morning's been intermittent. It is worse when he is under more stress at work. He denied diaphoresis, shortness of breath, nausea or vomiting. He denies headache, visual, ocular auditory symptoms. He denies abdominal pain, vomiting or diarrhea. He denies paresthesia, anesthesia or motor weakness. Patient denies chest tightness, pressure, heaviness or sharp dull sensation. The discomfort is feeling his heart beat. Prior similar symptoms: Yes Recent Illness/Hospitalization: No [facility] Medical History Anxiety Tobacco abuse Asthma Home Medications ?Medication ?Instructions ?Recorded ?Last Taken ?Type buspirone 7.5 mg tablet 7.5 mg PO BID 04/18/25 Unkno wn History alprazolam 0.25 mg tablet 0.25 mg PO DAILY PRN anxiety 06/16/25 Unknown History mirtazapine 15 mg tablet 7.5 mg PO DAILY 06/16/25 Unk nown History Allergy/AdvReac Type Severity Reaction Status Date / Time cat dander (cats) Allergy Intermediate Inflammation Verified 06/16/25 21:36 of lung egg Allergy Rash Verified 06/16/25 21:36 Penicillins Allergy Rash Verified 06/16/25 21:36 Family History Father Heart disease Social History household members: significant other housing: apartment Smoking Status: Heavy Smoker (>10/day) ROS ROS ED Constitutional Constitutional ED: Denies chills, fever(s), subjective or sweats Eyes Eyes: Denies blurry vision or change in vision ENT ENT ED: Denies rhinorrhea or sore throat Cardiovascular Cardiovascular: Reports palpitations; Denies chest pain or racing heartbeat Respiratory/Chest Respiratory/Chest: Denies cough, dyspnea or dyspnea on exertion Gastrointestinal Gastrointestinal: Denies abdominal pain, nausea or vomiting Neurologic Neurologic: Denies paresthesias or weakness Psychiatric Psychiatric: Reports anxiety; Denies suicidal ideation or suicidal thoughts EXAM Physical Exam Const Vital Signs: 06/16/25 21:34 06/16/25 21:46 Temperature 98.0 F Temperature Source Temporal Pulse Rate 84 Respiratory Rate 16 Respiratory Effort Normal Blood Pressure 113/70 Blood Pressure Mean 84 Pulse Ox 100 Oxygen Delivery Method Room Air Positive well nourished and well developed Constitutional Narrative: Affect is flat. Vital signs are normal. General Appearance ED: well developed HEENT Reports moist mucous membranes normocephalic and atraumatic Eyes PERRL and EOMs intact bilaterally General Eye ED: Negative for pale conjunctiva or scleral icterus Neck no lymphadenopathy, supple and no JVD Resp normal respiratory effort and clear to auscultation bilaterally Cardio S1 normal heart sound, S2 normal heart sound and no murmurs Rate: regular rate Rhythm: regular rhythm GI non-tender, non-distended and no masses Auscultation: normoactive bowel sounds Palpation: soft Extremity normal to inspection General Extremety ED: Negative for edema or tenderness General Extremity: Negative for edema Neuro oriented x3, CN's II-XII intact bilaterally and no sensory deficits noted Sensorium / Orientation: alert Motor Exam: strength 5/5 throughout Psych mental status grossly normal, thought process normal, cooperative, speech normal, denies hallucinations and denies homicidal ideation Appearance: grossly normal, appropriate and well kempt Attitude: calm Activity / Motor Behavior: appropriate eye contact Speech: normal speech and soft Mood & Affect: depressed and flat affect Thought Process: normal thought process Thought Content: normal thought content Attention / Concentration: attention grossly intact and concentration grossly intact Memory / Cognition: memory grossly intact and cognition grossly intact Insight: fair Judgement: judgement good Skin Skin Narrative: No skin lesions noted. MDM MDM MDM Narrative Medical decision making narrative: With history anxiety stress at work and symptoms occurred when stress increased suspect this is anxiety reaction. Patient was placed on the monitor. He has what appears to be benign a little early repolarization. Sinus rhythm. When I was informed and what the monitor showed his heart rate increased from 90-100. Patient was offered antianginal lytic. He declined. As documented in the HPI narrative patient did not take his Xanax that he was prescribed for this situation. Rhythm Strip Rhythm Strip: Sinus Rhythm Rate: 90 Ectopy: None EKG Initial EKG: Attestation: I personally reviewed and interpreted this EKG as follows: Interpretation: Sinus Rhythm (Rate is 81. The EKG is normal. Parable is 140 ms. QRS duration 78 ms. QT duration 344 ms. [place] is normal.) Treatment and Re-Evaluation Narrative: Patient was reassessed at 2217. Heart rate is slowed. He feels better. He asked if he could have a note to give his employer that he was here tonight. Discharge Plan Triage Chief Complaint: Anxiety ED Provider: Kendrick Page Dx/Rx/DC Orders Clinical Impression: Anxiety reaction, Tobacco abuse Instructions: ED Anxiety Reaction Prescriptions: No Action buspirone 7.5 mg tablet 7.5 mg PO BID alprazolam 0.25 mg tablet 0.25 mg PO DAILY PRN (Reason: anxiety) mirtazapine 15 mg tablet 7.5 mg PO DAILY Stand Alone Forms: ED Work / School Excuse Primary Care Provider: Moustapha Gtz Referrals: Moustapha Gtz MD [Primary Care Provider] - As Needed Activity Restrictions/Additional Instructions: Recommend contacting your psychiatrist to discuss other options since you are declining to anxiolytic medication and did not take medicine you were prescribed by your psychiatrist Print Language: Telugu Disposition Disposition: Home, Self Care
--- OUTSIDE RECORDS SUMMARY | 2025-06-16 22:15 | XMS RPT_ITS | CCD ---
Author Organization [facility] CliniSymd Care Team Providers Care Character Impersonator Name Role Phone Unavailable Primary Care Provider Daryn Stratton MD Primary Care Provider Unavailable Primary Care Provider DARYN Stratton Attending Unavailab DARYN Luna Primary Care Unavailab DARYN Luna Referring Unavailab DARYN Luna Primary Care Unavailab DARYN Luna Primary Care Unavailab DARYN Luna Attending Unavailab Ciara ESCALERA, Dr. Gerard Primary Care Provider Dr. David Lomax DO Attending Provider Dr. David Lomax DO Emergency Provider Dr. Charla Sepulveda DO Emergency Provider Dr. Moustapha Gtz MD Primary Care Provider Dr. Charla Sepulveda DO Attending Provider Dr. Chung Vallejo MD Emergency Provider Dr. Chung Vallejo MD Attending Provider Dr. Kendrick Page MD Emergency Provider Charla Sepulveda Attending Unavailable Moustapha Gtz Primary Care Unavailable Care Physician, No Primary Primary Care Unava ilable Hossein Weber Attending Unavailable Care Physician, No Primary Primary Care Unava ilable Kendrick Page Attending Unavailable Care Physician, No Primary Primary Care Unava ilable Jelani Scott Attending Unavailable Care Physician, No Primary Primary Care Unava ilable Yossi Guerra Attending Unavailable Moustapha Gtz Primary Care Unavailable Kendrick Page Attending Unavailable Moustapha Gtz Primary Care Unavailable Chung Vallejo Attending Unavailable Charla Sepulveda Attending Unavailable Moustapha Gtz Primary Care Unavailable David Lomax Attending Unavailable Moustapha Gtz Primary [facility] Unavailable Jalil Gomez Referring Unavailable Jalil Gomez [facility] Unavailable Jelani Scott Attending Unavailable Moustapha Gtz Primary Care Unavailable Allergies Allergy Classification Reported Allergen(s) Allergy Type Date of Onset Reaction(s) Facility (18 sources) egg extract; Translations: [EGG] Drug Allergy 5 [facility] (12 sources) Penicillins; Translations: [PENICILLINS] Drug Allergy 5 [facility] Work Phone: (6 sources) Penicillins Allergy to substance 3 [facility] (7 sources) cat dander; Translations: [cat dander] Allergy to substance 3 Inflammation of lung [facility] (5 sources) Cat; Translations: [CATS] Allergy to substance 5 Shortness of Breath [facility] (1 source) egg extract Drug Allergy 5 [facility] (1 source) Penicillins Drug allergy (disorder) 5 [facility] Medications Current Medications Medication Drug Class(es) Dates Sig (Normalized) Sig (Original) albuterol 0.83 mg/ml inhalation solution (20 sources) beta2-Adrenergic Agonist Start: 05-30-2023 take 1 ug by inhalation every four hours as needed Albuterol Active MCG INHALATION EVERY 4 HOURS NEEDED May 30, 2023 12:00am Start: 05-30-2023 take 1 ug by inhalat ion every four hours as needed Albuterol Active MCG INHALATION EVERY 4 HOURS NEEDED May 29, 2023 11:00pm Start: 07-24-2021 End: 06-26-2024 take 2.5 mg [...] buPROPion (WELLBUTRIN) 75 mg tablet 07/21/2024 Active busPIRone hydrochloride 7.5 mg oral tablet (1 source) Start: take 1 tablet by mouth twice daily Buspirone 7.5 mg tablet Active 7.5 mg PO TWICE A DAY April 18, 2025 12:00am cholecalciferol 1.25 mg oral capsule (2 sources) [...] on above: Take 1 tablet by milagros th once daily. [place] (Nk) (2 sources) Start: [place] (Nk) Active June 28, 2024 12:00am propranolol hydrochloride 10 mg oral tablet (1 [...] the l eft ear three times daily. Albuterol 90 mcg/actuation aerosol (3 sources) Start: 05-30-2023 End: 05-09-2024 Albuterol 90 mcg/actuation aerosol Discontinued ug INHALATION EVERY 4 HOURS NEEDED as needed for SOB May 30, 2023 12:00am May 09, 2024 2:27pm azelastine hydrochloride 0.137 mg/actuat metered dose nasal spray (3 sources) Histamine-1 Receptor Antagonist Start: 05-06-2024 End: 05-09-2024 Azelastine 137 mcg (0.1 %) spray,non-aerosol Discontinued 2 NMA INTRANASAL TWICE A DAY 30 0 May 06, 2024 12:00am May 09, 2024 2:28pm administer into each nostril Beclomethasone Dipropionate (6 sources) Corticosteroid Start: 02-13-2017 End: 07-21-2018 Beclomethasone Dipropionate 1 PUFF inhaler Discontinued 1 - 2 NMA INHALATION TWICE A DAY as needed for Sob &/Or Wheezing February 13, 2017 12:00am July 21, 2018 1:18pm Start: 02-13-2017 End: 07-21-2018 take 1 puff(s) by inhalation twice daily Beclomethasone Dipropionate Discontinued 1 - 2 PUFF INHALATION TWICE A DAY February 13, 2017 12:00am July 21, 2018 1:18pm Start: 02-13-2017 End: 07-21-2018 take 1 puff(s) by inhalation twice daily Beclomethasone Dipropionate Discontinued 1 - 2 PUFF INHALATION TWICE A DAY February 12, 2017 11:00pm July 21, 2018 12:18pm 60 actuat budesonide 0.16 mg/actuat / formoterol fumarate 0.0045 mg/actuat metered dose inhaler (6 sources) Corticosteroid, beta2-Adrenergic Agonist Start: 07-21-2018 End: 07-26-2018 Budesonide-Formoterol (Symbicort) 160-4.5 mcg/actuation HFA aerosol inhaler Discontinued 2 NMA INHALATION TWICE A DAY 1 July 21, 2018 12:00am July 26, 2018 10:19am Start: 07-21-2018 End: 07-26-2018 take 1 puff(s) by inhalation twice daily Budesonide-Formoterol (Symbicort) 160-4.5 mcg/actuation HFA aerosol inhaler Discontinued 2 PUFF INHALATION TWICE A DAY 1 July 21, 2018 12:00am July 26, 2018 10:19am cetirizine hydrochloride 10 mg oral tablet (8 sources) Histamine-1 Receptor Antagonist Start: 06-05-2022 End: 06-26-2024 take 1 tablet by mouth once daily cetirizine (ZYRTEC) 10 mg tablet Take 1 tablet by mouth once daily. 30 tablet 06/05/2022 06/26/2024 Discontinued (Course of therapy completed) Comment on above: Take 1 tablet by milagros th once daily. 120 actuat mometasone furoate 0.2 mg/actuat metered dose inhaler (6 sources) Corticosteroid Start: 07-21-2018 End: 07-26-2018 Mometasone (Asmanex Hfa) 200 mcg/actuation HFA aerosol inhaler Discontinued 2 NMA INHALATION Q12H July 21, 2018 12:00am July 26, 2018 10:19am Start: 07-21-2018 End: 07-26-2018 take 1 puff(s) by inhalation every twelve hours Mometasone (Asmanex Hfa) 200 mcg/actuation HFA aerosol inhaler Discontinued 2 PUFF INHALATION Q12H July 21, 2018 12:00am July 26, 2018 10:19am ondansetron 4 mg disintegrating oral tablet (9 sources) Serotonin-3 Receptor Antagonist Start: 05-13-2024 End: 06-28-2024 take 1 tablet by mouth every eight hours as needed for nausea Ondansetron 4 mg tablet,disintegrating Discontinued 4 mg PO EVERY 8 HOURS NEEDED as needed for Nausea 10 0 May 13, 2024 12:00am June 28, 2024 8:50am Start: 08-14-2023 End: 05-09-2024 take 1 tablet by mouth every eight hours as needed for nausea Ondansetron 4 mg tablet,disintegrating Discontinued 4 mg PO EVERY 8 HOURS NEEDED as needed for Nausea 10 0 August 14, 2023 1:00am May 09, 2024 2:28pm permethrin 50 mg/ml topical cream (3 sources) Pyrethroid Start: 03-19-2024 End: 06-28-2024 Permethrin (Elimite) 5 % cream Discontinued 1 NMA TOPICAL Q14D 60 0 March 19, 2024 12:00am June 28, 2024 8:50am apply second treatment 7 days after first treatment predniSONE 20 mg oral tablet (10 sources) Start: 05-06-2024 End: 06-28-2024 take 2 tablets by mouth once daily Prednisone 20 mg tablet Discontinued 40 mg PO DAILY 10 5 0 May 06, 2024 12:00am June 28, 2024 8:50am Start: 01-15-2024 End: 01-20-2024 take 3 tablets by mouth once daily predniSONE (DELTASONE) 10 mg tablet Take 3 tablets by mouth once daily for 5 days. 15 tablet 0 01/15/2024 01/20/2024 Active Start: 07-13-2018 End: 07-21-2018 take 2 tablets by mouth once daily Prednisone 20 MG tablet Discontinued 40 mg PO DAILY 8 July 13, 2018 12:00am July 21, 2018 1:18pm Start: 07-13-2018 End: 07-21-2018 take 40 mg by mouth once daily Prednisone Discontinued 40 MG PO DAILY July 13, 2018 12:00am July 21, 2018 1:18pm Comment on above: Take 3 tablets by mo uth once daily for 5 days. Problems Problem Classification Problem Date Documented Da te Episodic/Chronic Abdominal pain (12 sources) Acute abdominal pain; Translations: [Unspecified abdominal pain] 10-19-2020 Episodic Allergic reactions (12 sources) Eruption due to drug; Translations: [Generalized skin eruption due to drugs and medicaments taken internally] 06-25-2014 Episodic Anxiety disorders (13 sources) Generalized anxiety disorder; Translations: [Generalized anxiety disorder] Onset: 06-26-2024 06-26-2024 Chronic Asthma (20 sources) Uncomplicated asthma; Translations: [Unspecified asthma, uncomplicated] Onset: 10-20-2006 01-31-2017 Chronic Prieto (3 sources) Partial thickness burn of skin of finger; Translations: [Burn of second degree of single right finger (nail) except thumb, initial encounter] Onset: 03-23-2025 03-16-2025 Episodic Cardiac dysrhythmias (12 sources) Tachycardia; Translations: [Tachycardia, unspecified] Onset: 05-11-2024 05-11-2024 Episodic Chronic obstructive pulmonary disease and bronchiectasis (6 sources) Bronchitis; Translations: [Bronchitis, not specified as acute or chronic] 07-18-2019 Episodic Diseases of mouth; excluding dental (2 sources) Black hairy tongue; Translations: [Hypertrophy of tongue papillae] Onset: 05-11-2024 05-11-2024 Episodic Headache; including migraine (10 sources) Headache; Translations: [Headache, unspecified headache type] 05-11-2024 Episodic Headache; including migraine (2 sources) Headache; including migraine; Translations: [Headache, unspecified headache type] Onset: 05-11-2024 Immunizations and screening for infectious disease (1 source) Suspected disease caused by 2019-nCoV; Translations: [Suspected COVID-19 virus infection] Episodic Mood disorders (2 sources) Bipolar affective disorder, current episode mixed; Translations: [Bipolar disorder, current episode mixed, unspecified] Onset: 06-26-2024 06-26-2024 Chronic Nonspecific chest pain (6 sources) Chest pain; Translations: [Chest pain, unspecified] 06-07-2023 Episodic Nutritional deficiencies (4 sources) Vitamin D deficiency; Translations: [Vitamin D deficiency, unspecified] 06-27-2024 Chronic Other aftercare (2 sources) Wound ; Translations: [Encounter for other specified aftercare] 03-16-2025 Episodic Other and ill-defined heart disease (1 source) Right atrial enlargement; Translations: [Cardiomegaly] 05-11-2024 Chronic Other and ill-defined heart disease (1 source) Cardiomegaly; Translations: [Right atrial enlargement] Onset: 05-11-2024 Chronic Other circulatory disease (3 sources) Elevated blood-pressure reading without diagnosis of hypertension; Translations: [Elevated blood-pressure reading, without diagnosis of hypertension] 05-17-2024 Episodic Other ear and sense organ disorders (1 source) Acute otitis externa of left ear; Translations: [Unspecified acute noninfective otitis externa, left ear] Episodic Other gastrointestinal disorders (13 sources) Diarrhea; Translations: [Diarrhea, unspecified] Episodic Other gastrointestinal [...] acute lower respiratory infection] 07-23-2024 Episodic Other screening for suspected conditions (not mental disorders or infectious disease) (7 sources) Patient encounter status; Translations: [Encounter for screening, unspecified] 05-18-2024 Episodic Other upper respiratory disease (11 sources) Allergic rhinitis; Translations: [Allergic rhinitis, unspecified] Onset: 07-22-2018 07-22-2018 Chronic Other upper respiratory disease (1 source) Nasal congestion; Translations: [Nasal congestion] Episodic Other upper respiratory infections (20 sources) Pharyngitis; Translations: [Acute pharyngitis, unspecified] 07-02-2023 Episodic Residual codes; unclassified (6 sources) Tobacco user; Translations: [Tobacco use] 05-05-2018 Episodic Residual codes; unclassified (2 sources) Tobacco use and exposure - finding; Translations: [Tobacco use] 05-11-2024 Episodic Residual codes; unclassified (1 source) Tobacco use; Translations: [Tobacco use] Onset: 05-11-2024 Episodic Sprains and strains (6 sources) Strain of back muscle; Translations: [Strain of muscle, fascia and tendon of lower back, initial encounter] 06-17-2016 Episodic Substance-related disorders (11 sources) Smoker; Translations: [Nicotine dependence, unspecified, uncomplicated] Onset: 07-22-2018 07-22-2018 Chronic Viral infection (10 sources) Viral disease; Translations: [Viral infection, unspecified] 07-02-2023 Episodic Results Test Name Value Interpretation Reference Range Facility Emergency Department Summary on 04-18-[address] [facility] Medical Records Department [address] [place] [address] Emergency Department Summary 04/18/25 MR#: [id number] Acct: [id number] Name: REYNALDO ADDISON III Rep #: [id number] : 1995 29 From: Kendrick Page MD PCP: Dr. Moustapha Gtz MD Status:REG ER Location: ED HPI History of Present Illness Chief Complaint: Palpitations Detail of Chief Complaint: Palpitations and anxiousness Informant: patient Onset/Context/Timing Onset: Today Context: Sudden Onset Timing: Intermittent Quality: Fast heart rate when he was walking. He was waiting for news regarding new Location: Residence Current Severity: Gone Maximum Severity: Moderate Worsened by: Stress related to new job Relieved by: Not applicable Associated Symptoms Associated Symptoms: Heart rate of 109. Patient states he was walking at the time. Narrative Narrative: Patient is a 29-year-old male. He has no significant past medical history. He is on BuSpar. He does have history of anxiety and depression. Patient presently works at [employer]. He is scheduled to start a new job at [employer]. He is waiting for information regarding training. He apparently became anxious. He noted his heart rate was fast. Today his heart rate was 109. He was walking at the time. He denies chest discomfort. Denies shortness of breath. He denied diaphoresis. He denied nausea or vomiting. He has no history of MVP. He has no history of VTE. He denies leg pain, swelling discoloration. He has no weight gain or weight loss. He has no symptoms of hyperthyroidism. Prior similar symptoms: Yes Recent Illness/Hospitalizati on: No PFSH PFSH Medical History Anxiety Tobacco abuse Asthma Home Medications ???Medication ???Instructions ???Recorded ???Last Taken ???Type buspirone 7.5 mg tablet 7.5 mg PO BID 04/18/25 Unknown His tory Allergy/AdvReac Type Severity Reaction Status Date / Time cat dander (cats) Allergy Intermediate Inflammation Verified 04/18/25 10:03 of lung egg Allergy Rash Verified 04/18/25 10:03 Penicillins Allergy Rash Verified 04/18/25 10:03 Family History Father Heart disease Social History household members: significant other housing: apartment Smoking Status: Current every day smoker tobacco type: cigarettes ROS ROS ED Constitutional Constitutional ED: Denies chills, fever(s), subjective, sweats or weight loss Eyes Eyes: Denies change in vision Cardiovascular Cardiovascular: Reports palpitations and racing heartbeat; Denies chest pain Respiratory/Chest Respiratory/Chest: Denies cough, dyspnea or dyspnea on exertion Gastrointestinal Gastrointestinal: Denies abdominal pain, nausea or vomiting Psychiatric Psychiatric: Reports anxiety Hematologic/Lymphatic Hematologic/Lymphatic : Reports systems reviewed and no addt'l complaints, except as documented EXAM Physical Exam Const Vital Signs: 04/18/25 10:02 04/18/25 10:07 Temperature 97.8 F Temperature Source Temporal Pulse Rate 95 Respiratory Rate 16 Respiratory Effort Normal Blood Pressure 117/76 Blood Pressure Mean 89 Pulse Ox 100 Oxygen Delivery Method Room Air Positive well nourished and well developed Constitutional Narrative: Patient is thin with a BMI of 17.8. General Appearance ED: well developed and pallor HEENT Reports moist mucous membranes HEENT Narrative: HEENT is grossly unremarkable. Eyes PERRL and EOMs intact bilaterally General Eye ED: Negative for scleral icterus Chest Wall palpation of chest normal Resp normal respiratory effort and clear to auscultation bilaterally Cardio regular rate, regular rhythm, S2 normal heart sound and no murmurs Rate: other Other Details: There is no click to suggest MVP. Extremity normal to inspection General Extremety ED: Negative for edema or tenderness General Extremity: Negative for edema Neuro oriented x3 and CN's II-XII intact bilaterally Sensorium / Orientation: alert Psych Mood Affect: anxious Skin no rashes or lesions noted, no wounds and skin turgor normal General Skin Exam: pallor; Negative for elasticity normal or jaundice MDM MDM MDM Narrative Medical decision making narrative: Vital signs are normal. Patient appears slightly anxious. He is thin. He states he is always been thin. He said no weight loss. There is no concern for hyperthyroidism. Patient placed on a monitor. He was observed for 30 minutes. He had no ectopy. Therefore will discharge to home. Discharge Plan Triage Chief Complaint: Palpitations ED Provider: Kendrick Page Dx/Rx/DC Orders Clinical Impression: Anxiety reaction, Encounter for medical sc (more content not included)... Normal [facility] Emergency Department Summary on 03-16-2025 Emergency Department Summary [facility] Medical Records Department [address] [place] [id number] Emergency Department Summary 03/16/25 MR#: [id number] Acct: [id number] Name: REYNALDO ADDISON III Rep #: [id number] : 1995 29 From: Chung Vallejo MD PCP: Dr. Moustapha Gtz MD Status:REG ER Location: ED HPI History of Present Illness Chief Complaint: Burn Informant: patient Narrative Narrative: Patient states he works at [employer] and he sustained a small burn to his right middle finger from gale grease that splashed onto his finger. He states this occurred about a week ago. He states initially there was some yellow-green layer on the top, and today he accidentally scraped it off and was concerned and wanted to make sure it is not getting infected. He does not have any pain or significant discharge. [facility] Medical History Anxiety Tobacco abuse Asthma Home Medications ???Medication ???Instructions ???Recorded ???Last Taken ???Type NK 06/28/24 Unknown History Allergy/AdvReac Type Severity Reaction Status Date / Time cat dander (cats) Allergy Intermediate Inflammation Verified 03/16/25 21:53 of lung egg Allergy Rash Verified 03/16/25 21:53 Penicillins Allergy Rash Verified 03/16/25 21:53 Family History Father Heart disease Social History household members: significant other housing: apartment Smoking Status: Current every day smoker tobacco type: cigarettes ROS ROS ED Constitutional Constitutional ED: Denies chills or fever(s) Musculoskeletal Musculoskeletal: Reports extremity pain; Denies neck pain Integumentary Reports wounds; Denies Abrasions or rash Neurologic Neurologic: Denies paresthesias or weakness EXAM Physical Exam Const Vital Signs: 03/16/25 21:52 Temperature 98.7 F Temperature Source Oral Pulse Rate 77 Respiratory Rate 16 Blood Pressure 116/67 Blood Pressure Mean 83 Pulse Ox 100 Oxygen Delivery Method Room Air Positive well nourished and well developed General Appearance ED: well developed and NAD Neck full ROM and supple Back/Spine normal ROM and normal to inspection Neuro oriented x3, no focal motor deficits and no sensory deficits noted Sensorium / Orientation: alert Psych mental status grossly normal and thought process normal Skin Skin Narrative: Small subcentimeter healing burn dorsal right middle finger no tenderness, no lymphangitis, no sign of infection. Rashes: no rashes MDM MDM MDM Narrative Medical decision making narrative: Patient is reassured. This appears partial-thickness, there is granulation tissue within, there is no sign of infection, he has a Band-Aid on it and I am having nursing clean it and place a new one with bacitracin he was instructed to continue doing the same and keep it protected at work. Discharge Plan Triage Chief Complaint: Burn ED Provider: Chung Vallejo Dx/Rx/DC Orders Clinical Impression: Partial thickness burn of right middle finger, Encounter for post-traumatic wound check Instructions: ED Burn Wound Check No Infect Prescriptions: No Action NK Stand Alone Forms: Work Status Form Primary Care Provider: Moustapha Gtz Referrals: [facility] [Group of Physicians] - As Needed Print Language: Taiwanese Disposition Disposition: Home, Self Care What to do if you have Problems For any increased pain, shortness of breath, bleeding, nausea or vomiting, chest pain, or any unexpected problems, contact your Primary Care Provider. Call [facility] ([phone]) or report to the closest Emergency Room. Call 911 if necessary. 03/16/25 [id number] Cosigner Signature (if applicable): CC: Dr. Moustapha Gtz MD Signed Normal [facility] Emergency Department Summary on 01-11-[address] [facility] Medical Records Department [address] [place] [address] Emergency Department Summary 01/11/25 MR#: [id number] Acct: [id number] Name: REYNALDO ADDISON III Rep #: [id number] : 1995 29 From: Charla Sepulveda DO PCP: Dr. Moustapha Gtz MD Status:REG ER Location: ED HPI HPI - Psych History of Present Illness Chief Complaint: Anxiety Informant: patient Narrative Narrative: Patient is a 29-year-old male with history of tobacco use and anxiety follows with a counselor and psychiatrist presenting with panic attack. Patient states he was at work when he developed a panic attack. States he felt like he was having a heart attack. He states since being here he is calm down and is feeling much better. He thinks it was triggered by him not having enough sleep lately as he is been working a lot (works 10 to 12-hour shifts at [employer] and it has been stressful). States he has appointment to see a psychiatrist on the . He has been compliant with his BuSpar and does have a prescription for as needed Xanax as needed for anxiety. Denies any HI or SI. States at this time he feels safe going home. No other complaints or concerns reported. Feels that he is been in his normal state of health. Denies associated fever, chills, shortness of breath, nausea, vomiting or diarrhea. [facility] Medical History Anxiety Tobacco abuse Asthma Home Medications ???Medication ???Instructions ???Recorded ???Last Taken ???Type NK 06/28/24 Unknown History Allergy/AdvReac Type Severity Reaction Status Date / Time cat dander (cats) Allergy Intermediate Inflammation Verified 01/11/25 17:26 of lung egg Allergy Rash Verified 01/11/25 17:26 Penicillins Allergy Rash Verified 01/11/25 17:26 Family History Father Heart disease Social History household members: significant other housing: apartment Smoking Status: Current every day smoker tobacco type: cigarettes ROS ROS ED Constitutional Constitutional ED: Denies chills or fever(s) Cardiovascular Cardiovascular: Reports racing heartbeat; Denies chest pain Respiratory/Chest Respiratory/Chest: Denies cough or dyspnea Gastrointestinal Gastrointestinal: Denies abdominal pain, nausea or vomiting Musculoskeletal Musculoskeletal: Denies arthralgias or myalgias Neurologic Neurologic: Denies weakness Psychiatric Psychiatric: Reports anxiety; Denies suicidal ideation or suicidal thoughts EXAM Physical Exam Const Vital Signs: 01/11/25 17:26 Temperature 97 F L Temperature Source Temporal Pulse Rate 83 Respiratory Rate 18 Blood Pressure 127/73 H Blood Pressure Mean 91 Pulse Ox 100 Oxygen Delivery Method Room Air Positive well nourished and well developed Constitutional Narrative: Thin General Appearance ED: well developed and NAD; Negative for pallor HEENT Reports moist mucous membranes HEENT Narrative: Edentulous Eyes PERRL and EOMs intact bilaterally Neck supple Resp normal respiratory effort and clear to auscultation bilaterally Cardio no murmurs Cardio Narrative: 2+ radial pulses present Rate: regular rate Rhythm: regular rhythm GI non-tender and non-distended Extremity normal to inspection Neuro oriented x3 Sensorium / Orientation: alert Motor Exam: muscle tone normal throughout; Negative for general weakness Psych mental status grossly normal, thought process normal, cooperative, affect normal and speech normal Thought Content: normal thought content and No suicidality Memory / Cognition: memory grossly intact Insight: insight good Judgement: judgement good Skin General Skin Exam: Negative for pallor Rashes: no rashes MDM MDM MDM Narrative Medical decision making narrative: Patient evaluated for anxiety attack. Since being the ER he is calm down his feeling much better. Vital signs are normal and low suspicion for acute cardiopulmonary process. Does have a history of anxiety. Is established with the counseling center and a psychiatrist. Is comfortable being discharged home at this time. Denies any HI or SI I feel like he is a safe candidate for outpatient follow-up. Is offered a prescription for hydroxyzine but states he will just talk to his psychiatrist about this. Does have as needed Xanax as needed. Given return precautions. Discharged home in stable condition. Discharge Plan Triage Chief Complaint: Anxiety ED Provider: Charla Sepulveda Dx/Rx/DC Orders Clinical Impression: Anxiety attack Instructions: ED Panic Attack Prescriptions: No Action NK Stand Alone Forms: ED Work / School Excuse Primary Care Pr (more content not included)... Normal [facility] 12 Lead EKGon 11-05-2024 12 Lead EKG [facility] [address] [place] [address] 12 Lead EKG 11/05/24 1827 MR#: [id number] Acct: [id number] Name: REYNALDO ADDISON III Rep #: [id number] : 1995 29 From: Graham Dickey MD Attending Dr: Status: DEP ER Ordering Dr: David Lomax DO Date: 11/05/24 Location: ED Sex: M C Admitted: Test Reason : Blood Pressure : */* mmHG Vent. Rate : 76 BPM Atrial Rate : 76 BPM P-R Int : 124 ms QRS Dur : 86 ms QT Int : 360 ms P-R-T Axes : 79 86 69 degrees QTcB Int : 405 ms Normal sinus rhythm Normal ECG Confirmed by GRAHAM DICKEY MD ([id number]), associate editor BASHIR MAIN ([id number]) on 11/06/2024 8:24:42 AM Referred By: Confirmed By: GRAHAM DICKEY MD 11/06/24 0824 Date Graham Dickey MD CC: Dr. Moustapha Gtz MD; Dr. David Lomax, DO Signed Normal [facility] Absolute neutrophil countOrd ered By: David Lomax on 11-05-2024 Neutrophils (Bld) [#/Vol] 2.4 10*3/uL 2.0-7.7 [facility] Basic Metabolic Profile (BMP )on 11-05-2024 BUN/CRE 11.6 RATIO Normal 10-20 [facility] Comment on above: Performed By: #### L 500.2500, L100.0100 ####[facility] [address] [place], [address] CA,Total 9.1 mg/dL Normal 8.5-10.1 [facility] Comment on above: Performed By: #### L 500.2500, L100.0100 ####[facility] [address] [place], [address] Chloride [Moles/Vol] 106 mmol/L Normal 98-[address] [facility] Comment on above: Performed By: #### L 500.2500, L100.0100 ####[facility] [address] [place], [address] CO2 [Moles/Vol] 25.0 mmol/L Normal 21.0-32.0 [facility] Comment on above: Performed By: #### L 500.2500, L100.0100 ####[facility] [address] [place], [address] Creatinine [Mass/Vol] 0.86 mg/dL Normal 0.70-1.30 [facility] Comment on above: Result Comment: The validity of the calculated GFR GFRAA in patients over 70 years has not been determined. Clinical correlation is essential. Performed By: #### L 500.2500, L100.0100 ####[facility] [address] [place], [address] ECRCL 85.38 ml/min Normal [facility] Comment on above: Performed By: #### L 500.2500, L100.0100 ####[facility] [address] [place], [address] EST GFR - AA 135 mL/min Normal >60 [facility] Comment on above: Result Comment: Afri can Montenegrin GFR Calc Performed By: #### L 500.2500, L100.0100 ####[facility] [address] [place], [address] GAP 7 Normal 5-15 [facility] Comment on above: Performed By: #### L 500.2500, L100.0100 ####[facility] [address] [place], [address] GFR/1.73 sq M.predicted among non-blacks MDRD (S/P/Bld) [Vol rate/Area] 112 mL/min/{1.73_m2} Normal >60 [facility] Comment on above: Result Comment: Non- GFR Calc Performed By: #### L 500.2500, L100.0100 ####[facility] [address] [place], [address] Glucose [Mass/Vol] 102 mg/dL Normal 74-106 [facility] Comment on above: Result Comment: Fast ing Glucose result from 100 to 125 mg/dL suggests IMPAIRED HOMEOSTASIS per A.D.A. criteria. Performed By: #### L 500.2500, L100.0100 ####[facility] [address] [place], [address] Potassium [Moles/Vol] 4.4 mmol/L Normal 3.5-5.1 [facility] Comment on above: Performed By: #### L 500.2500, L100.0100 ####[facility] [address] [place], [address] Sodium [Moles/Vol] 138 mmol/L Normal 136-145 [facility] Comment on above: Performed By: #### L 500.2500, L100.0100 ####[facility] [address] [place], [address] Urea nitrogen [Mass/Vol] 10 mg/dL Normal 7-18 [facility] Comment on above: Performed By: #### L 500.2500, L100.0100 ####[facility] [address] [place], [address] Basophil percentageOrdered B y: David Lomax on 11-05-2024 Basophils/100 WBC (Bld) 0.8 % 0-1 [facility] Blood urea nitrogen (BUN)/cr eatinine ratioOrdered By: David Lomax on 11-05-2024 Urea nitrogen/Creatinine [Mass ratio] 11.6 mg/mg 10-20 [facility] CBC W/Diff, Automatedon 02- Absolute Lymph 1.24 X10 3/uL Normal 0.83-4.51 [facility] Comment on above: Performed By: #### L 500.2500, L100.0100 #### [facility] [address] [place], [address] Absolute Neut 2.4 X10 3/uL Normal 2.0-7.7 [facility] Comment on above: Performed By: #### L 500.2500, L100.0100 #### [facility] [address] [place], [address] Basophils/100 WBC (Bld) 0.8 % Normal 0-1 [facility] Comment on above: Performed By: #### L 500.2500, L100.0100 #### [facility] [address] [place], [address] Eosinophils/100 WBC (Bld) 0.3 % Normal 0-5 [facility] Comment on above: Performed By: #### L 500.2500, L100.0100 #### [facility] [address] [place], [address] Erythrocyte distribution width (RBC) [Ratio] 12.2 % Normal 11.6-14.6 [facility] Comment on above: Performed By: #### L 500.2500, L100.0100 #### [facility] [address] [place], [address] Hematocrit (Bld) [Volume fraction] 46.8 % Normal 40-54 [facility] Comment on above: Performed By: #### L 500.2500, L100.0100 #### [facility] [address] [place], [address] Hemoglobin (Bld) [Mass/Vol] 16.2 g/dL Normal 13.0-16.5 [facility] Comment on above: Performed By: #### L 500.2500, L100.0100 #### [facility] [address] [place], [address] IG% 0.000 Normal 0.0-0.9 [facility] Comment on above: Result Comment: IG% - Immature Granulocytes (promyelocytes, myelocytes and metamyelocytes) > 1% indicates that a LEFT SHIFT is Present. Performed By: #### L 500.2500, L100.0100 #### [facility] [address] [place], [address] Lymphocytes/100 WBC (Bld) 32.3 % Normal 19-41 [facility] Comment on above: Performed By: #### L 500.2500, L100.0100 #### [facility] [address] [place], [address] MCH (RBC) [Entitic mass] 31.6 pg Normal 27.0-32.0 [facility] Comment on above: Performed By: #### L 500.2500, L100.0100 #### [facility] [address] [place], [address] MCHC (RBC) [Mass/Vol] 34.6 g/dL Normal 32-36 [facility] Comment on above: Performed By: #### L 500.2500, L100.0100 #### [facility] [address] [place], [address] MCV (RBC) [Entitic vol] 91.4 fL Normal 80-94 [facility] Comment on above: Performed By: #### L 500.2500, L100.0100 #### [facility] [address] [place], [address] Monocytes/100 WBC (Bld) 5.5 % Normal 0-10 [facility] Comment on above: Performed By: #### L 500.2500, L100.0100 #### [facility] [address] [place], [address] Neutrophils/100 WBC (Bld) 61.1 % Normal 47-70 [facility] Comment on above: Performed By: #### L 500.2500, L100.0100 #### [facility] [address] [place], [address] Nucleated RBC (Bld) [#/Vol] 0 10*3/uL Normal 0-5 [facility] Comment on above: Performed By: #### L 500.2500, L100.0100 #### [facility] [address] [place], [address] Platelet mean volume (Bld) [Entitic vol] 9.3 fL Normal 6.2-12.0 [facility] Comment on above: Performed By: #### L 500.2500, L100.0100 #### [facility] [address] [place], [address] Platelets (Bld) [#/Vol] 207 10*3/uL Normal 150-450 [facility] Comment on above: Performed By: #### L 500.2500, L100.0100 #### [facility] [address] [place], [address] RBC (Bld) [#/Vol] 5.12 10*6/uL Normal 4.6-6.2 [facility] Comment on above: Performed By: #### L 500.2500, L100.0100 #### [facility] [address] [place], [address] RDW SD 40.9 fl Normal 35.1-43.9 [facility] Comment on above: Performed By: #### L 500.2500, L100.0100 #### [facility] [address] [place], [address] WBC (Bld) [#/Vol] 3.8 10*3/uL Low 4.4-11.0 [facility] Comment on above: Performed By: #### L 500.2500, L100.0100 #### [facility] [address] [place], [address] Carbon dioxide measurementOr dered By: David Lomax on 11-05-2024 CO2 [Moles/Vol] 25.0 mmol/L 21.0-32.0 [facility] Chloride measurementOrdered By: David Lomax on 11-05-2024 Chloride [Moles/Vol] 106 mmol/L 98-[address] [facility] Emergency Department Summary on 11-05-2024 Emergency Department Summary [facility] Medical Records Department [address] [place] [address] Emergency Department Summary 11/05/24 MR#: [id number] Acct: [id number] Name: REYNALDO ADDISON NIDHI Rep #: [id number] : 1995 29 From: David Lomax DO PCP: Dr. Moustapha Gtz MD Status:DEP ER Location: ED HPI History of Present Illness Chief Complaint: Anxiety Informant: patient Onset/Context/Timing Onset: Today Context: Sudden Onset Timing: Continuous Quality: Racing Location: Chest Worsened by: Nothing Relieved by: Sleep Narrative Narrative: Patient presents with increasing anxiety that began today. Patient states it began rather suddenly. Patient states he felt like his heart was racing. Patient states it gets better when he is able to sleep. Patient states nothing makes it worse. Patient denies any shortness of breath. Patient denies any nausea or vomiting. Patient does admit to some pain into his back. Patient denies any fevers or chills. Patient denies any suicidal homicidal ideations. Patient states he has been taking his BuSpar with no improvement. Prior similar symptoms: Yes PFSH PFSH Medical History Anxiety Tobacco abuse Asthma Home Medications ???Medication ???Instructions ???Recorded ???Last Taken ???Type NK 06/28/24 Unknown History Allergy/AdvReac Type Severity Reaction Status Date / Time cat dander (cats) Allergy Intermediate Inflammation Verified 07/20/24 17:54 of lung egg Allergy Rash Verified 07/20/24 17:54 Penicillins Allergy Rash Verified 07/20/24 17:54 Family History Father Heart disease Surgical History no surgical history no surgical history Social History household members: significant other housing: apartment Smoking Status: Current every day smoker tobacco type: cigarettes ROS ROS ED Constitutional Constitutional ED: Denies chills or fever(s) Eyes Eyes: Denies blurry vision or change in vision ENT ENT ED: Denies rhinorrhea or sore throat Cardiovascular Cardiovascular: Reports palpitations; Denies chest pain Respiratory/Chest Respiratory/Chest: Denies cough or dyspnea Gastrointestinal Gastrointestinal: Denies nausea or vomiting Genitourinary Genitourinary ED: Denies dysuria or hematuria Musculoskeletal Musculoskeletal: Reports back pain; Denies neck pain Integumentary Denies abscess or rash Neurologic Neurologic: Denies headache(s) or weakness Psychiatric Psychiatric: Reports anxiety; Denies suicidal ideation or suicidal thoughts Allergic/Immunologic Allergic/Immunologic ED: Denies mouth swelling or urticaria EXAM Physical Exam Const Vital Signs: 11/05/24 15:49 Temperature 97.0 F L Temperature Source Temporal Pulse Rate 106 H Respiratory Rate 15 Blood Pressure 119/80 Blood Pressure Mean 93 Pulse Ox 97 Oxygen Delivery Method Room Air Positive well nourished and well developed General Appearance ED: well developed and NAD HEENT Reports moist mucous membranes Neck supple and no JVD Resp normal respiratory effort and clear to auscultation bilaterally Cardio regular rhythm Rate: tachycardic GI non-tender and non-distended Palpation: soft Extremity normal to inspection Neuro oriented x3, CN's II-XII intact bilaterally and no sensory deficits noted Sensorium / Orientation: alert Motor Exam: strength 5/5 throughout Psych Mood Affect: anxious MDM MDM MDM Narrative Medical decision making narrative: Differential diagnosis includes cardiac dysrhythmia, cardiac ischemia, anxiety, electrolyte abnormality, and anemia. EKG will be obtained to assess for cardiac dysrhythmia and cardiac ischemia. CBC will be obtained to assess for leukocytosis and anemia. Basic metabolic profile will be obtained to assess for electrolyte abnormality and renal function. Lab Data Attestation: I reviewed the patient's lab results. Lab results narrative: CBC was reviewed and was within normal limits. Basic metabolic profile was reviewed and was within normal limits. EKG Initial EKG: Attestation: I personally reviewed and interpreted this EKG as follows: Interpretation: Sinus Rhythm (76) and No Acute Injury Pattern Comments: EKG was obtained. On my independent interpretation, it showed a normal sinus rhythm with a rate of 76. LA interval, QRS interval, and QTc intervals were all normal. [place] was normal. There are no acute ST or T wave changes. Prior EKG tracings: available for review Prior: Unchanged Treatment and Re-Evaluation :: Patient was advised of his findings. Patient was instructed to continue his BuSpar as prescribed. Patient was instructed to drink pl (more content not included)... Normal [facility] Eosinophil percentageOrdered By: David Lomax on 11-05-2024 Eosinophils/100 WBC (Bld) 0.3 % 0-5 [facility] Erythrocyte distribution wid th (RBC) [Ratio]Ordered By: David Lomax on 11-05-2024 Erythrocyte distribution width (RBC) [Entitic vol] 40.9 fL 35.1-43.9 [facility] Erythrocyte distribution wid th ratioOrdered By: David Lomax on 11-05-2024 Erythrocyte distribution width (RBC) [Ratio] 12.2 % 11.6-14.6 [facility] Estimated glomerular filtrat ion rate (GFR) AmericanOrdered By: Dvaid Lomax on 11-05-2024 Estimated GFR (MDRD) Amer 135 mL/min >60 [facility] Comment on above: GFR Calc Estimation of creatinine ramon aranceOrdered By: David Lomax on 11-05-2024 Estimated Creatinine Clearance Calc 85.38 ml/min [facility] Glomerular filtration rate ( GFR) estimationOrdered By: David Lomax on 11-05-2024 Estimated GFR (MDRD) Non-Af Amer 112 mL/min >60 [facility] Comment on above: Non- GFR Calc Glucose measurementOrdered B y: David Lomax on 11-05-2024 Glucose [Mass/Vol] 102 mg/dL 74-106 [facility] Comment on above: Fasting Glucose resu lt from 100 to 125 mg/dL suggests IMPAIRED HOMEOSTASIS per A.D.A. criteria. Hematocrit Auto (Bld) [Volum e fraction]Ordered By: David Lomax on 11-05-2024 Hematocrit (Bld) [Volume fraction] 46.8 % 40-54 [facility] Hemoglobin measurementOrdere d By: David Lomax on 11-05-2024 Hemoglobin (Bld) [Mass/Vol] 16.2 g/dL 13.0-16.5 [facility] Immature granulocytes/100 WB C Auto (Bld)Ordered By: David Lomax on 11-05-2024 Immature granulocytes/100 WBC (Bld) 0.000 % 0.0-0.9 [facility] Comment on above: IG% - Immature Granu locytes (promyelocytes, myelocytes and metamyelocytes) > 1% indicates that a LEFT SHIFT is Present. Lymphocytes Auto (Unsp spec) [#/Vol]Ordered By: David Lomax on 11-05-2024 Lymphocytes (Bld) [#/Vol] 1.24 10*3/uL 0.83-4.51 [facility] Lymphocytes/100 WBC Auto (Un sp spec)Ordered By: David Lomax on 11-05-2024 Lymphocytes/100 WBC (Bld) 32.3 % 19-41 [facility] MCV (mean corpuscular volume ) determinationOrdered By: David Lomax on 11-05-2024 MCV (RBC) [Entitic vol] 91.4 fL 80-94 [facility] Mean corpuscular hemoglobin (MCH) determinationOrdered By: David Lomax on 11-05-2024 MCH (RBC) [Entitic mass] 31.6 pg 27.0-32.0 [facility] Mean corpuscular hemoglobin concentration (MCHC) determinationOrdered By: David Lomax on 11-05-2024 MCHC (RBC) [Mass/Vol] 34.6 g/dL 32-36 [facility] Mean platelet volume determi nationOrdered By: David Lomax on 11-05-2024 Platelet mean volume (Bld) [Entitic vol] 9.3 fL 6.2-12.0 [facility] Monocyte percentageOrdered B y: David Lomax on 11-05-2024 Monocytes/100 WBC (Bld) 5.5 % 0-10 [facility] Neutrophil percentageOrdered By: David Lomax on 11-05-2024 Neutrophils/100 WBC (Bld) 61.1 % 47-70 [facility] Nucleated red blood cell per centageOrdered By: David Lomax on 11-05-2024 Nucleated RBC/100 WBC (Bld) [Ratio] 0 % 0-5 [facility] Platelet countOrdered By: Bulmaro Lomax on 11-05-2024 Platelets (Bld) [#/Vol] 207 10*3/uL 150-450 [facility] Potassium measurementOrdered By: David Lomax on 11-05-2024 Potassium [Moles/Vol] 4.4 mmol/L 3.5-5.1 [facility] RBC Auto (Bld) [#/Vol]Ordere d By: David Lomax on 11-05-2024 RBC (Bld) [#/Vol] 5.12 10*6/uL 4.6-6.2 [facility] Serum anion gap measurementO rdered By: David Lomax on 11-05-2024 Anion gap [Moles/Vol] 7 mmol/L 5-15 [facility] Serum or plasma calcium yoni urement (mass/volume)Ordered By: David Lomax on 11-05-2024 Calcium [Mass/Vol] 9.1 mg/dL 8.5-10.1 [facility] Serum or plasma creatinine m easurement (mass/volume)Ordered By: David Lomax on 11-05-2024 Creatinine [Mass/Vol] 0.86 mg/dL 0.70-1.30 [facility] Comment on above: The validity of the calculated GFR & GFRAA in patients over 70 years has not been determined. Clinical correlation is essential. Serum or plasma urea nitroge n measurement (mass/volume)Ordered By: David Lomax on 11-05-2024 Urea nitrogen [Mass/Vol] 10 mg/dL 7-18 [facility] Sodium levelOrdered By: David Lomax on 11-05-2024 Sodium [Moles/Vol] 138 mmol/L 136-145 [facility] White blood cell (WBC) count Ordered By: David Lomax on 11-05-2024 WBC (Bld) [#/Vol] 3.8 10*3/uL Low 4.4-11.0 [facility] CNOVon 07-23-2024 CN Office Visit (UCTR ) AZAELREYNALDO Rodriguez ([id number]) 1995 M Date Time Provider Department 07/23/24 10:00 AM GENEVIEVE WADE [facility] During your visit today, we recorded the following information about you: Temperature Pulse Respiration Blood pressure 98.6 degrees 92/minute 18/minute 112/75 Weight 50.4 kg Genevieve Wade APRN.CNP 07/23/2024 10:23 AM Signed Subjective HPI HPI Reynaldo Rodriguez Azael is a 29 year old [...] deficiency PAST SURGICAL HISTORY Procedure Laterality Date CIRCUMCISION,CLAMP,NE WBORN ALLERGIES Cats, Penicillins, and Eggs [Egg] MEDICATIONS [...] DOXYCYCLINE MONOHYDRATE 100 MG TABLET Genevieve Wade APRN.[employer] Allergies As of Date: 07/23/2024 Noted Allergy [...] as of (more content not included)... Normal [facility] 12 Lead EKGon 07-20-2024 12 Lead EKG [facility] [address] [address] 12 Lead EKG 07/20/24 1802 MR#: [id number] Acct: [id number] Name: REYNALDO ADDISON III Rep #: [id number] : 1995 29 From: Brian Amaya MD Attending Dr: Status: DEP ER Ordering Dr: Jalil Gomez DO Date: 07/20/24 Location: ED Sex: M C Admitted: Test Reason : PALPS Blood Pressure : / mmHG Vent. Rate : 096 BPM Atrial Rate : 096 BPM P-R Int : 128 ms QRS Dur : 074 ms QT Int : 332 ms P-R-T Axes : 080 077 046 degrees QTc Int : 419 ms Normal sinus rhythm Right atrial enlargement Borderline ECG Confirmed by Brian Amaya ([id number]), associate editor OLIVA BOLANOS ([id number]) on 07/21/2024 1:40:14 PM Referred By: Jalil Gomez Confirmed By:Brian Amaya 07/21/24 1340 Date Brian Amaya MD CC: Dr. Moustapha Gtz MD; Dr. Jalil Gomez DO Signed Normal [facility] Basic Metabolic Profile (BMP )on 07-20-2024 BUN/CRE 11.9 RATIO Normal 10-20 [facility] Comment on above: Performed By: #### L 100.0100, L500.2500, L501.5200 ####[facility] [address] [place], [address] CA,Total 9.0 mg/dL Normal 8.5-10.1 [facility] Comment on above: Performed By: #### L 100.0100, L500.2500, L501.5200 ####[facility] [address] [place], [address] Chloride [Moles/Vol] 108 mmol/L High 98-[address] [facility] Comment on above: Performed By: #### L 100.0100, L500.2500, L501.5200 ####[facility] [address] [place], [address] CO2 [Moles/Vol] 25.0 mmol/L Normal 21.0-32.0 [facility] Comment on above: Performed By: #### L 100.0100, L500.2500, L501.5200 ####[facility] [address] [place], [address] Creatinine [Mass/Vol] 0.76 mg/dL Normal 0.70-1.30 [facility] Comment on above: Result Comment: The validity of the calculated GFR GFRAA in patients over 70 years has not been determined. Clinical correlation is essential. Performed By: #### L 100.0100, L500.2500, L501.5200 ####[facility] [address] [place], [address] ECRCL 106.00 ml/min Normal [facility] Comment on above: Performed By: #### L 100.0100, L500.2500, L501.5200 ####[facility] [address] [place], [address] EST GFR - AA 157 mL/min Normal >60 [facility] Comment on above: Result Comment: Afri can Montenegrin GFR Calc Performed By: #### L 100.0100, L500.2500, L501.5200 ####[facility] [address] [place], [address] GAP 6 Normal 5-15 [facility] Comment on above: Performed By: #### L 100.0100, L500.2500, L501.5200 ####[facility] [address] [place], [address] GFR/1.73 sq M.predicted among non-blacks MDRD (S/P/Bld) [Vol rate/Area] 129 mL/min/{1.73_m2} Normal >60 [facility] Comment on above: Result Comment: Non- GFR Calc Performed By: #### L 100.0100, L500.2500, L501.5200 ####[facility] [address] [place], [address] Glucose [Mass/Vol] 104 mg/dL Normal 74-106 [facility] Comment on above: Result Comment: Fast ing Glucose result from 100 to 125 mg/dL suggests IMPAIRED HOMEOSTASIS per A.D.A. criteria. Performed By: #### L 100.0100, L500.2500, L501.5200 ####[facility] [address] [place], [address] Potassium [Moles/Vol] 3.6 mmol/L Normal 3.5-5.1 [facility] Comment on above: Performed By: #### L 100.0100, L500.2500, L501.5200 ####[facility] [address] [place], [address] Sodium [Moles/Vol] 138 mmol/L Normal 136-145 [facility] Comment on above: Performed By: #### L 100.0100, L500.2500, L501.5200 ####[facility] [address] [place], [address] Urea nitrogen [Mass/Vol] 9 mg/dL Normal 7-18 [facility] Comment on above: Performed By: #### L 100.0100, L500.2500, L501.5200 ####[facility] [address] [place], [address] CBC W/Diff, Automatedon 10-1 Absolute Lymph 0.99 X10 3/uL Normal 0.83-4.51 [facility] Comment on above: Performed By: #### L 100.0100, L500.2500, L501.5200 ####[facility] [address] [place], [address] Absolute Neut 3.5 X10 3/uL Normal 2.0-7.7 [facility] Comment on above: Performed By: #### L 100.0100, L500.2500, L501.5200 ####[facility] [address] [place], [address] Basophils/100 WBC (Bld) 0.6 % Normal 0-1 [facility] Comment on above: Performed By: #### L 100.0100, L500.2500, L501.5200 ####[facility] [address] [place], [address] Eosinophils/100 WBC (Bld) 0.6 % Normal 0-5 [facility] Comment on above: Performed By: #### L 100.0100, L500.2500, L501.5200 ####[facility] [address] [place], [address] Erythrocyte distribution width (RBC) [Ratio] 12.7 % Normal 11.6-14.6 [facility] Comment on above: Performed By: #### L 100.0100, L500.2500, L501.5200 ####[facility] [address] [place], [address] Hematocrit (Bld) [Volume fraction] 41.1 % Normal 40-54 [facility] Comment on above: Performed By: #### L 100.0100, L500.2500, L501.5200 ####[facility] [address] [place], [address] Hemoglobin (Bld) [Mass/Vol] 14.2 g/dL Normal 13.0-16.5 [facility] Comment on above: Performed By: #### L 100.0100, L500.2500, L501.5200 ####[facility] [address] [place], [address] IG% 0.200 Normal 0.0-0.9 [facility] Comment on above: Result Comment: IG% - Immature Granulocytes (promyelocytes, myelocytes and metamyelocytes) > 1% indicates that a LEFT SHIFT is Present. Performed By: #### L 100.0100, L500.2500, L501.5200 ####[facility] [address] [place], [address] Lymphocytes/100 WBC (Bld) 19.4 % Normal 19-41 [facility] Comment on above: Performed By: #### L 100.0100, L500.2500, L501.5200 ####[facility] [address] [place], [address] MCH (RBC) [Entitic mass] 31.8 pg Normal 27.0-32.0 [facility] Comment on above: Performed By: #### L 100.0100, L500.2500, L501.5200 ####[facility] [address] [place], [address] MCHC (RBC) [Mass/Vol] 34.5 g/dL Normal 32-36 [facility] Comment on above: Performed By: #### L 100.0100, L500.2500, L501.5200 ####[facility] [address] [place], [address] MCV (RBC) [Entitic vol] 92.2 fL Normal 80-94 [facility] Comment on above: Performed By: #### L 100.0100, L500.2500, L501.5200 ####[facility] [address] [place], [address] Monocytes/100 WBC (Bld) 10.0 % Normal 0-10 [facility] Comment on above: Performed By: #### L 100.0100, L500.2500, L501.5200 ####[facility] [address] [place], [address] Neutrophils/100 WBC (Bld) 69.2 % Normal 47-70 [facility] Comment on above: Performed By: #### L 100.0100, L500.2500, L501.5200 ####[facility] [address] [place], [address] Nucleated RBC (Bld) [#/Vol] 0 10*3/uL Normal 0-5 [facility] Comment on above: Performed By: #### L 100.0100, L500.2500, L501.5200 ####[facility] [address] [place], [address] Platelet mean volume (Bld) [Entitic vol] 9.6 fL Normal 6.2-12.0 [facility] Comment on above: Performed By: #### L 100.0100, L500.2500, L501.5200 ####[facility] [address] [place], [address] Platelets (Bld) [#/Vol] 185 10*3/uL Normal 150-450 [facility] Comment on above: Performed By: #### L 100.0100, L500.2500, L501.5200 ####[facility] [address] [place], [address] RBC (Bld) [#/Vol] 4.46 10*6/uL Low 4.6-6.2 [facility] Comment on above: Performed By: #### L 100.0100, L500.2500, L501.5200 ####[facility] [address] [place], [address] RDW SD 43.0 fl Normal 35.1-43.9 [facility] Comment on above: Performed By: #### L 100.0100, L500.2500, L501.5200 ####[facility] [address] [place], [address] WBC (Bld) [#/Vol] 5.1 10*3/uL Normal 4.4-11.0 [facility] Comment on above: Performed By: #### L 100.0100, L500.2500, L501.5200 ####[facility] [address] [place], [address] Emergency Department Summary on 07-20-2024 Emergency Department Summary [facility] Medical Records Department [address] [place] [address] Emergency Department Summary 07/20/24 MR#: [id number] Acct: [id number] Name: REYNALDO ADDISON III Rep #: [id number] : 1995 29 From: Jalil Gomez DO PCP: Dr. Moustapha Gtz MD Status:DEP ER Location: ED HPI History of Present Illness Chief Complaint: Palpitations Informant: patient and family Narrative Narrative: 29-year-old male presenting to the emergency room with anxiety. Patient states that he is with anxiety and yesterday went to see a psychiatrist at the counseling center. He was placed on venlafaxine and he started that this morning. When he woke this morning he felt more anxious than he had been feeling. Patient states that as the day went on he felt more anxious and was wondering if he was having a reaction to the vaccine. He states he has a history of sinus tachycardia was enlarged right side of his heart was worried about that. He denies any wheezing stridor swelling rashes. Noted fever. [facility] Medical History (Updated 07/20/24 @ 19:[address] Jalil Gomez DO) Tobacco abuse Asthma Home Medications ???Medication ???Instructions ???Recorded ???Last Taken ???Type NK 06/28/24 Unknown History Allergy/AdvReac Type Severity Reaction Status Date / Time cat dander (cats) Allergy Intermediate Inflammation Verified 07/20/24 17:54 of lung egg Allergy Rash Verified 07/20/24 17:54 Penicillins Allergy Rash Verified 07/20/24 17:54 Family History Father Heart disease Social History Smoking Status: Current every day smoker tobacco type: cigarettes ROS ROS ED Constitutional Constitutional ED: Denies chills, fever(s) or weight loss Eyes Eyes: Denies change in vision or diplopia ENT ENT ED: Denies ear pain, rhinorrhea or sore throat Cardiovascular Cardiovascular: Reports palpitations and racing heartbeat; Denies chest pain or orthopnea Respiratory/Chest Respiratory/Chest: Denies cough, dyspnea or orthopnea Gastrointestinal Gastrointestinal: Denies abdominal pain, diarrhea, nausea or vomiting Genitourinary Genitourinary ED: Denies dysuria, hematuria or urinary frequency Musculoskeletal Musculoskeletal: Denies arthralgias or myalgias Integumentary Denies abscess or rash Neurologic Neurologic: Denies headache(s) or weakness Psychiatric Psychiatric: Reports anxiety; Denies depression, suicidal ideation or suicidal thoughts Endocrine Endocrinology: Denies polydipsia, polyphagia or polyuria Allergic/Immunologic Allergic/Immunologic ED: Denies mouth swelling, tongue swelling or urticaria EXAM Physical Exam Const Vital Signs: 07/20/24 17:55 07/20/24 18:24 07/20/24 19:03 Temperature 97.9 F Temperature Source Oral Pulse Rate 111 H 87 Respiratory Rate 18 16 Respiratory Effort Normal Non-Labored Blood Pressure 119/70 Blood Pressure Mean 86 Pulse Ox 98 96 Oxygen Delivery Method Room Air 07/20/24 19:15 07/20/24 19:30 07/20/24 19:45 Temperature Temperature Source Pulse Rate 80 79 100 Respiratory Rate 15 16 19 H Respiratory Effort Blood Pressure 123/78 H Blood Pressure Mean 91 Pulse Ox 96 96 97 Oxygen Delivery Method Positive well nourished and well developed General Appearance ED: well developed and NAD HEENT Reports normocephalic, head/scalp atraumatic and moist mucous membranes Eyes PERRL and EOMs intact bilaterally Neck no lymphadenopathy, supple and no JVD Resp normal respiratory effort and clear to auscultation bilaterally Cardio regular rate, regular rhythm and no murmurs GI normal to inspection, nondistended, normoactive bowel sounds and non-tender Palpation: soft Back/Spine no CVA tenderness and normal ROM Extremity normal to inspection General Extremety ED: Negative for edema General Extremity: Negative for edema Neuro oriented x3 and CN's II-XII intact bilaterally Sensorium / Orientation: alert Motor Exam: strength 5/5 throughout Psych Mood Affect: anxious; Negative for depressed or tearful Skin no rashes or lesions noted and no wounds MDM MDM MDM Narrative Medical decision making narrative: Differential diagnosis would include but not limited to cardiac dysrhythmia electrolyte abnormality anemia dehydration anxiety Patient is in a normal sinus rhythm. He has been as low as 77. When I entered the room to discuss his findings his heart rate jumps to 100. I am not seeing any significant electrolyte abnormality or evidence of anemia or dehydration. He is been normal tensive. I do think a lot of his symptoms are anxiety related. I did recommend he discuss his symptomology today with his prescri (more content not included)... Normal [facility] Magnesiumon 07-20-2024 Magnesium [Mass/Vol] 2.2 mg/dL Normal 1.6-2.[address] [facility] Comment on above: Performed By: #### L 100.0100, L500.2500, L501.5200 ####[facility] [address] [place], [address] CNCOon 06-29-2024 CNCO Letter Text Normal [facility] 12 Lead EKGon 06-28-2024 12 Lead EKG [facility] [address] [place] [address] 12 Lead EKG 06/28/24 0910 MR#: [id number] Acct: [id number] Name: REYNALDO ADDISON III Rep #: [id number] : 1995 29 From: Brian Amaya MD Attending Dr: Status: DEP ER Ordering Dr: Jelani Scott DO Date: 06/28/24 Location: ED Sex: M C Admitted: Test Reason : GEN ILLNESS Blood Pressure : / mmHG Vent. Rate : 095 BPM Atrial Rate : 095 BPM P-R Int : 136 ms QRS Dur : 084 ms QT Int : 334 ms P-R-T Axes : 086 080 067 degrees QTc Int : 419 ms Normal sinus rhythm with sinus arrhythmia Normal ECG Confirmed by Brian Amaya ([id number]), associate editor BASHIR MAIN ([id number]) on 06/30/2024 9:42:05 AM Referred By: Confirmed By:Brian Amaya 06/30/2442 Date Brian Amaya MD CC: Dr. Moustapha Gtz MD; Dr. Jelani Scott DO Signed Normal [facility] Basic Metabolic Profile (BMP )on 06-28-2024 BUN/CRE 11.3 RATIO Normal 10-20 [facility] Comment on above: Order Comment: 'TROP ' Serial specimen #1, #2 or #3: 1 Performed By: #### L 500.2500, L501.4020, L100.0100 ####[facility] [address] [place], [address] CA,Total 9.6 mg/dL Normal 8.5-10.1 [facility] Comment on above: Order Comment: 'TROP ' Serial specimen #1, #2 or #3: 1 Performed By: #### L 500.2500, L501.4020, L100.0100 ####[facility] [address] [place], [address] Chloride [Moles/Vol] 107 mmol/L Normal 98-[address] [facility] Comment on above: Order Comment: 'TROP ' Serial specimen #1, #2 or #3: 1 Performed By: #### L 500.2500, L501.4020, L100.0100 ####[facility] [address] [place], [address] CO2 [Moles/Vol] 29.0 mmol/L Normal 21.0-32.0 [facility] Comment on above: Order Comment: 'TROP ' Serial specimen #1, #2 or #3: 1 Performed By: #### L 500.2500, L501.4020, L100.0100 ####[facility] [address] [place], [address] Creatinine [Mass/Vol] 0.88 mg/dL Normal 0.70-1.30 [facility] Comment on above: Order Comment: 'TROP ' Serial specimen #1, #2 or #3: 1 Result Comment: The validity of the calculated GFR GFRAA in patients over 70 years has not been determined. Clinical correlation is essential. Performed By: #### L 500.2500, L501.4020, L100.0100 ####[facility] [address] [place], [address] ECRCL 90.59 ml/min Normal [facility] Comment on above: Order Comment: 'TROP ' Serial specimen #1, #2 or #3: 1 Performed By: #### L 500.2500, L501.4020, L100.0100 ####[facility] [address] [place], [address] EST GFR - AA 131 mL/min Normal >60 [facility] Comment on above: Order Comment: 'TROP ' Serial specimen #1, #2 or #3: 1 Result Comment: Afri can Mont[place] GFR Calc Performed By: #### L 500.2500, L501.4020, L100.0100 ####[facility] [address] [place], [address] GAP 3 Low 5-15 [facility] Comment on above: Order Comment: 'TROP ' Serial specimen #1, #2 or #3: 1 Performed By: #### L 500.2500, L501.4020, L100.0100 ####[facility] [address] [place], [address] GFR/1.73 sq M.predicted among non-blacks MDRD (S/P/Bld) [Vol rate/Area] 108 mL/min/{1.73_m2} Normal >60 [facility] Comment on above: Order Comment: 'TROP ' Serial specimen #1, #2 or #3: 1 Result Comment: Non- GFR Calc Performed By: #### L 500.2500, L501.4020, L100.0100 ####[facility] [address] [place], [address] Glucose [Mass/Vol] 109 mg/dL High 74-106 [facility] Comment on above: Order Comment: 'TROP ' Serial specimen #1, #2 or #3: 1 Result Comment: Fast ing Glucose result from 100 to 125 mg/dL suggests IMPAIRED HOMEOSTASIS per A.D.A. criteria. Performed By: #### L 500.2500, L501.4020, L100.0100 ####[facility] [address] [place], [address] Potassium [Moles/Vol] 3.6 mmol/L Normal 3.5-5.1 [facility] Comment on above: Order Comment: 'TROP ' Serial specimen #1, #2 or #3: 1 Performed By: #### L 500.2500, L501.4020, L100.0100 ####[facility] [address] [place], [address] Sodium [Moles/Vol] 139 mmol/L Normal 136-145 [facility] Comment on above: Order Comment: 'TROP ' Serial specimen #1, #2 or #3: 1 Performed By: #### L 500.2500, L501.4020, L100.0100 ####[facility] [address] [place], [address] Urea nitrogen [Mass/Vol] 10 mg/dL Normal 7-18 [facility] Comment on above: Order Comment: 'TROP ' Serial specimen #1, #2 or #3: 1 Performed By: #### L 500.2500, L501.4020, L100.0100 ####[facility] [address] [place], [address] CBC W/Diff, Automatedon 06-05 Absolute Lymph 1.97 X10 3/uL Normal 0.83-4.51 [facility] Comment on above: Performed By: #### L 500.2500, L501.4020, L100.0100 ####[facility] [address] [place], [address] Absolute Neut 2.6 X10 3/uL Normal 2.0-7.7 [facility] Comment on above: Performed By: #### L 500.2500, L501.4020, L100.0100 ####[facility] [address] [place], [address] Basophils/100 WBC (Bld) 0.6 % Normal 0-1 [facility] Comment on above: Performed By: #### L 500.2500, L501.4020, L100.0100 ####[facility] [address] [place], [address] Eosinophils/100 WBC (Bld) 0.8 % Normal 0-5 [facility] Comment on above: Performed By: #### L 500.2500, L501.4020, L100.0100 ####[facility] [address] [place], [address] Erythrocyte distribution width (RBC) [Ratio] 12.8 % Normal 11.6-14.6 [facility] Comment on above: Performed By: #### L 500.2500, L501.4020, L100.0100 ####[facility] [address] [place], [address] Hematocrit (Bld) [Volume fraction] 41.9 % Normal 40-54 [facility] Comment on above: Performed By: #### L 500.2500, L501.4020, L100.0100 ####[facility] [address] [place], [address] Hemoglobin (Bld) [Mass/Vol] 14.2 g/dL Normal 13.0-16.5 [facility] Comment on above: Performed By: #### L 500.2500, L501.4020, L100.0100 ####[facility] [address] [place], [address] IG% 0.000 Normal 0.0-0.9 [facility] Comment on above: Result Comment: IG% - Immature Granulocytes (promyelocytes, myelocytes and metamyelocytes) > 1% indicates that a LEFT SHIFT is Present. Performed By: #### L 500.2500, L501.4020, L100.0100 ####[facility] [address] [place], [address] Lymphocytes/100 WBC (Bld) 38.9 % Normal 19-41 [facility] Comment on above: Performed By: #### L 500.2500, L501.4020, L100.0100 ####[facility] [address] [place], [address] MCH (RBC) [Entitic mass] 31.3 pg Normal 27.0-32.0 [facility] Comment on above: Performed By: #### L 500.2500, L501.4020, L100.0100 ####[facility] [address] [place], [address] MCHC (RBC) [Mass/Vol] 33.9 g/dL Normal 32-36 [facility] Comment on above: Performed By: #### L 500.2500, L501.4020, L100.0100 ####[facility] [address] [place], [address] MCV (RBC) [Entitic vol] 92.5 fL Normal 80-94 [facility] Comment on above: Performed By: #### L 500.2500, L501.4020, L100.0100 ####[facility] [address] [place], [address] Monocytes/100 WBC (Bld) 7.9 % Normal 0-10 [facility] Comment on above: Performed By: #### L 500.2500, L501.4020, L100.0100 ####[facility] [address] [place], [address] Neutrophils/100 WBC (Bld) 51.8 % Normal 47-70 [facility] Comment on above: Performed By: #### L 500.2500, L501.4020, L100.0100 ####[facility] [address] [place], [address] Nucleated RBC (Bld) [#/Vol] 0 10*3/uL Normal 0-5 [facility] Comment on above: Performed By: #### L 500.2500, L501.4020, L100.0100 ####[facility] [address] [place], [address] Platelet mean volume (Bld) [Entitic vol] 9.3 fL Normal 6.2-12.0 [facility] Comment on above: Performed By: #### L 500.2500, L501.4020, L100.0100 ####[facility] [address] [place], [address] Platelets (Bld) [#/Vol] 200 10*3/uL Normal 150-450 [facility] Comment on above: Performed By: #### L 500.2500, L501.4020, L100.0100 ####[facility] [address] [place], [address] RBC (Bld) [#/Vol] 4.53 10*6/uL Low 4.6-6.2 [facility] Comment on above: Performed By: #### L 500.2500, L501.4020, L100.0100 ####[facility] [address] [place], [address] RDW SD 43.3 fl Normal 35.1-43.9 [facility] Comment on above: Performed By: #### L 500.2500, L501.4020, L100.0100 ####[facility] [address] [place], [address] WBC (Bld) [#/Vol] 5.1 10*3/uL Normal 4.4-11.0 [facility] Comment on above: Performed By: #### L 500.2500, L501.4020, L100.0100 ####[facility] [address] [place], [address] Emergency Department Summary on 06-28-2024 Emergency Department Summary [facility] Medical Records Department [address] [place] [address] Emergency Department Summary 06/28/24 MR#: [id number] Acct: [id number] Name: REYNALDO ADDISON III Rep #: [id number] : 1995 29 From: Jelani Scott DO PCP: Dr. Moustapha Gtz MD Status:REG ER Location: ED HPI History of Present Illness Chief Complaint: General Illness Narrative Narrative: Patient is a 29-year-old male with past medical history of sinus tachycardia, tobacco use, asthma who presents to the emergency department with a chief complaint of concern for elevated carbon monoxide level. Patient states that has been driving his car scur-mfk-sruaj to work and notes that it is leaking gas fumes and was concerned today that he may have carbon monoxide poisoning therefore he came here further evaluation and management. Patient denies any sick contacts. Patient states that he does have a appointment today that he is post have some testing done. He states that has been following with his primary care physician. Patient did note that he has had feelings of his heart racing in his chest recently but has not had any Holter monitor placement. [facility] Medical History (Updated 06/28/24 @ 10:[address] Jelani Scott DO) Tobacco abuse Asthma Allergy/AdvReac Type Severity Reaction Status Date / Time cat dander (cats) Allergy Intermediate Inflammation Verified 06/28/24 08:41 of lung egg Allergy Rash Verified 06/28/24 08:41 Penicillins Allergy Rash Verified 06/28/24 08:41 Family History Father Heart disease Social History Smoking Status: Current every day smoker tobacco type: cigarettes ROS ROS ED ROS Narrative Constitutional: Denies fevers, chills, headaches, lightheadedness, dizziness Eyes: Denies change vision double vision blurry vision Cardiovascular: Complains of palpitations as noted above denies chest pain Respiratory: Denies coughing wheezing shortness of breath Abdomen: Denies abdominal pain nausea vomit diarrhea : Denies any painful urination, hematuria, polyuria Neurological: Denies numbness, weakness, tingling Musculoskeletal: Denies back pain Skin: Denies rashes or lesions EXAM Physical Exam Narrative Exam Narrative: General: Patient was lying in bed rest comfortably did not appear to be in acute distress Head: Atraumatic, normocephalic Eyes: PERRL bilateral, EOMI bilateral, no conjunctival injection noted Neck: Soft, supple, trach midline Cardiovascular: Patient is tachycardic with a regular rhythm no murmurs gallops rubs noted Respiratory: Clear to auscultation bilaterally Abdomen: Soft, nondistended, nontender to palpation, bowel sounds present x 4 Extremities: +5/5 strength noted in the bilateral upper and lower extremities, radial pulses +2/4 in the bilateral per extremities Neurological: Patient follow commands knew that he was at [facility] years 2023 Skin: Warm, dry, tact Const Vital Signs: 06/28/24 08:37 06/28/24 08:49 Temperature 98 F Temperature Source Oral Pulse Rate 116 H Respiratory Rate 18 Respiratory Pattern Normal Blood Pressure 121/71 H Blood Pressure Mean 87 Pulse Ox 96 Oxygen Delivery Method Room Air MDM MDM MDM Narrative Medical decision making narrative: Patient is a 29-year-old male who presented to the emergency department chief complaint of concern for elevated carbon monoxide level. Patient will have workup performed here on the differential diagnose includes but not limited to anxiety, elevated carbon monoxide level although do feel this less likely as he has not been in close spaces carbon oxide level will be checked and may be slightly elevated secondary to his tobacco use. Once workup is obtained reviewed he will be reevaluated. Patient CBC reviewed showed evidence leukocytosis white blood count normal at 5.1, hemoglobin stable at 14.2, platelet count normal at 200, sodium normal 139, potassium normal 3.6, creatinine normal at 0.88. Patient's troponin normal at less than 3, EKG reviewed and showed sinus rhythm with a rate of 95 bpm this was independently interpreted by myself. Patient's carbon monoxide level checked and was noted to be 11 which was likely slightly elevated secondary to his tobacco use with smoking. On reevaluation the patient he states that he is feeling better. I did offer him a Holter monitor for his feelings of palpitations he states that he will follow-up with his primary care physician on this and determine whether he wants to wear this or not. He was advised to go to his scheduled appointment today. He is encouraged to return with worsening symptoms or other concerns. Patient is agreeable this plan he would like to go home at this point (more content not included)... Normal [facility] L501.4020on 06-28-2024 TROPONIN-I HS < 3 Low 3.0-78.0 [facility] Comment on above: Order Comment: 'TROP ' Serial specimen #1, #2 or #3: 1 Result Comment: Alecia rod Note: New Test Units and Gender Specific Reference Ranges. For more information see Policy Stat Procedure Aubrey High Sensitivity Troponin (TNIH) and attachments. Performed By: #### L 500.2500, L501.4020, L100.0100 ####[facility] [id number] [place], [place], [address] [facility] 06-27-2024 [facility] REYNALDO ADDISON ([id number]) 1995 Date Time Provider Department 06/27/24 DARYN GTZ [facility] During your visit today, we recorded the [...] back and to update contact information. SEMAJ Saiin Beth, LPN 07/04/2024 10:01 AM Signed Patient returned call and went over results, notes from Dr Gtz with understanding. Aware Vitamin D rx sent to pharmacy. Patient wants to take the supplement, asking for rx to be sent to [facility] pharmacy. Pending rx needs completed. Daryn Gtz [...] [95] Primary Visit Diagnosis:Vitamin D deficiency [E55.9] Order(s):cholecalcife rol, Vitamin D3, (VITAMIN D3) 1,250 mcg (50,000 unit) cap capsuleTake 1 capsule by mouth one time a week.Disp: 12 capsuleRfl: 0 VITAMIN D 25 HYDROXY [SQVITD] Order #: [id number] FUTURE cyanocobalamin (VITAMIN B-12) 1,000 mcg tabTake [...] Encounter Status:Closed by MING WEN on 07/04/24 Normal [facility] 25(OH)D3 SerPl-Mahinon 2023 25-hydroxyvitamin D3 [Mass/Vol] 7.3 ng/mL Low 31.0-80.0 [facility] Comment on above: Order Comment: Speci men Type: BLOOD SPECIMENOrdering Facility: [facility] Address: [address] [place] [address] Result Comment: Clas sification of 25 [place] Vitamin D status: Deficiency/Insufficiency: < or = 30 ng/ml. Sufficiency/Optimal Levels: 31-80 ng/mL Toxicity: > 100 ng/mL. Test performed by chemiluminescent immunoassay. Performed By: #### 1 989-3 ####[facility] LABCLIA [id number] [facility] [id number] [place] [address] [place] CBC W Auto Differential pane l (Bld)on 06-26-2024 Basophils (Bld) [#/Vol] 0.05 10*3/uL [facility] Basophils/100 WBC (Bld) 0.8 % C [facility] Differential cell count method Nom (Bld) Auto [facility] Eosinophils (Bld) [#/Vol] 0.13 10*3/uL [facility] Eosinophils/100 WBC (Bld) 2.1 % [facility] Erythrocyte distribution width (RBC) [Ratio] 12.9 % 11.5 - 15.0 % [facility] Hematocrit (Bld) [Volume fraction] 46.2 % 39.0 - 51.0 % [facility] Hemoglobin (Bld) [Mass/Vol] 15.4 g/dL 13.0 - 17.0 g/dL [facility] Immature granulocytes (Bld) [#/Vol] [facility] Immature granulocytes/100 WBC (Bld) 0.2 % [facility] Lymphocytes (Bld) [#/Vol] 3.19 10*3/uL [facility] Lymphocytes/100 WBC (Bld) 52.0 % [facility] MCH (RBC) [Entitic mass] 31.4 pg 26. 0 - 34.0 pg [facility] MCHC (RBC) [Mass/Vol] 33.3 g/dL 30.5 - 36.0 g/dL [facility] MCV (RBC) [Entitic vol] 94.3 fL 80.0 - 100.0 fL [facility] Monocytes (Bld) [#/Vol] 0.43 10*3/uL [facility] Monocytes/100 WBC (Bld) 7.0 % C [facility] Neutrophils (Bld) [#/Vol] 2.33 10*3/uL [facility] Neutrophils/100 WBC (Bld) 37.9 % [facility] Nucleated RBC (Bld) [#/Vol] [facility] Nucleated RBC/100 WBC (Bld) [Ratio] 0.0 % /100 WBC [facility] Platelet mean volume (Bld) [Entitic vol] 10.3 fL 9.0 - 12.7 fL [facility] Platelets (Bld) [#/Vol] 229 10*3/uL [facility] RBC (Bld) [#/Vol] 4.90 10*6/uL 4.20 - 6.0 0 m/uL [facility] WBC (Bld) [#/Vol] 6.14 10*3/uL [facility] Basophils (Bld) [#/Vol] 0.05 10*3/uL Normal <0.11 [facility] Comment on above: Order Comment: Speci men Type: BLOOD SPECIMENOrdering Facility: [facility] Address: [address] [place] [address] Performed By: #### 5 7021-8 ####[facility] LABCLIA [id number] [place] [address] [place] Basophils/100 WBC (Bld) 0.8 % Normal [facility] Comment on above: Order Comment: Speci men Type: BLOOD SPECIMENOrdering Facility: [facility] Address: [address] [place] [address] Performed By: #### 5 7021-8 ####[facility] LABCLIA [id number] [place] [address] [place] Differential cell count method Nom (Bld) Auto Normal [facility] Comment on above: Order Comment: Speci men Type: BLOOD SPECIMENOrdering Facility: [facility] Address: [address] [place] [address] Performed By: #### 5 7021-8 ####[facility] LABCLIA [id number] [place] [address] [place] Eosinophils (Bld) [#/Vol] 0.13 10*3/uL Normal <0.46 [facility] Comment on above: Order Comment: Speci men Type: BLOOD SPECIMENOrdering Facility: [facility] Address: [address] [place] [address] Performed By: #### 5 7021-8 ####[facility] LABCLIA [id number] [place] [address] [place] Eosinophils/100 WBC (Bld) 2.1 % Normal [facility] Comment on above: Order Comment: Speci men Type: BLOOD SPECIMENOrdering Facility: [facility] Address: [address] [place] [address] Performed By: #### 5 7021-8 ####[facility] LABCLIA [id number] [place] [address] [place] Erythrocyte distribution width (RBC) [Ratio] 12.9 % Normal 11.5-15.0 [facility] Comment on above: Order Comment: Speci men Type: BLOOD SPECIMENOrdering Facility: [facility] Address: [address] [place] [address] Performed By: #### 5 7021-8 ####[facility] LABCLIA [id number] [place] [address] [place] Hematocrit (Bld) [Volume fraction] 46.2 % Normal 39.0-51.0 [facility] Comment on above: Order Comment: Speci men Type: BLOOD SPECIMENOrdering Facility: [facility] Address: [address] [place] [address] Performed By: #### 5 7021-8 ####[facility] LABCLIA [id number] [place] [address] [place] Hemoglobin (Bld) [Mass/Vol] 15.4 g/dL Normal 13.0-17.0 [facility] Comment on above: Order Comment: Speci men Type: BLOOD SPECIMENOrdering Facility: [facility] Address: [address] [place] [address] Performed By: #### 5 7021-8 ####[facility] LABCLIA [id number] [place] [address] [place] Immature granulocytes (Bld) [#/Vol] 10*3/uL Normal <0.10 [facility] Comment on above: Order Comment: Speci men Type: BLOOD SPECIMENOrdering Facility: [facility] Address: [address] [place] [address] Performed By: #### 5 7021-8 ####[facility] LABCLIA [id number] [place] [address] [place] Immature granulocytes/100 WBC (Bld) 0.2 % Normal [facility] Comment on above: Order Comment: Speci men Type: BLOOD SPECIMENOrdering Facility: [facility] Address: [address] [place] [address] Performed By: #### 5 7021-8 ####[facility] LABCLIA [id number] [place] [address] [place] Lymphocytes (Bld) [#/Vol] 3.19 10*3/uL Normal 1.00-4.00 [facility] Comment on above: Order Comment: Speci men Type: BLOOD SPECIMENOrdering Facility: [facility] Address: [address] [place] [address] Performed By: #### 5 7021-8 ####[facility] LABIA [id number] [place] [address] [place] Lymphocytes/100 WBC (Bld) 52.0 % Normal [facility] Comment on above: Order Comment: Speci men Type: BLOOD SPECIMENOrdering Facility: [facility] Address: [address] [place] [address] Performed By: #### 5 7021-8 ####[facility] LABIA [id number] [place] [address] [place] MCH (RBC) [Entitic mass] 31.4 pg Normal 26.0-34.0 [facility] Comment on above: Order Comment: Speci men Type: BLOOD SPECIMENOrdering Facility: [facility] Address: [address] [place] [address] Performed By: #### 5 7021-8 ####[facility] LABCLIA [id number] [place] [address] [place] MCHC (RBC) [Mass/Vol] 33.3 g/dL Normal 30.5-36.[address] [facility] Comment on above: Order Comment: Speci men Type: BLOOD SPECIMENOrdering Facility: [facility] Address: [address] [place] [address] Performed By: #### 5 7021-8 ####[facility] LABCLIA [id number] [place] [address] [place] MCV (RBC) [Entitic vol] 94.3 fL Normal 80.0-100.0 [facility] Comment on above: Order Comment: Speci men Type: BLOOD SPECIMENOrdering Facility: [facility] Address: [address] [place] [address] Performed By: #### 5 7021-8 ####[facility] LABIA [id number] [place] [address] [place] Monocytes (Bld) [#/Vol] 0.43 10*3/uL Normal <0.87 [facility] Comment on above: Order Comment: Speci men Type: BLOOD SPECIMENOrdering Facility: [facility] Address: [address] [place] [address] Performed By: #### 5 7021-8 ####[facility] LABIA [id number] [place] [address] [place] Monocytes/100 WBC (Bld) 7.0 % Normal [facility] Comment on above: Order Comment: Speci men Type: BLOOD SPECIMENOrdering Facility: [facility] Address: [address] [place] [address] Performed By: #### 5 7021-8 ####[facility] LABIA [id number] [place] [address] [place] Neutrophils (Bld) [#/Vol] 2.33 10*3/uL Normal 1.45-7.50 [facility] Comment on above: Order Comment: Speci men Type: BLOOD SPECIMENOrdering Facility: [facility] Address: [address] [place] [address] Performed By: #### 5 7021-8 ####[facility] LABCLIA [id number] [place] [address] [place] Neutrophils/100 WBC (Bld) 37.9 % Normal [facility] Comment on above: Order Comment: Speci men Type: BLOOD SPECIMENOrdering Facility: [facility] Address: [address] [place] [address] Performed By: #### 5 7021-8 ####[facility] LABCLIA [id number] [place] [address] [place] Nucleated RBC (Bld) [#/Vol] 10*3/uL Normal <0.01 [facility] Comment on above: Order Comment: Speci men Type: BLOOD SPECIMENOrdering Facility: [facility] Address: [address] [place] [address] Performed By: #### 5 7021-8 ####[facility] LABCLIA [id number] [place] [address] [place] Nucleated RBC/100 WBC (Bld) [Ratio] 0.0 /100 WBC Normal [facility] Comment on above: Order Comment: Speci men Type: BLOOD SPECIMENOrdering Facility: [facility] Address: [address] [place] [address] Performed By: #### 5 7021-8 ####[facility] LABCLIA [id number] [place] [address] [place] Platelet mean volume (Bld) [Entitic vol] 10.3 fL Normal 9.0-12.7 [facility] Comment on above: Order Comment: Speci men Type: BLOOD SPECIMENOrdering Facility: [facility] Address: [address] [place] [address] Performed By: #### 5 7021-8 ####[facility] LABCLIA [id number] [place] [address] [place] Platelets (Bld) [#/Vol] 229 10*3/uL Normal 150-400 [facility] Comment on above: Order Comment: Speci men Type: BLOOD SPECIMENOrdering Facility: [facility] Address: [address] [place] [address] Performed By: #### 5 7021-8 ####[facility] LABCLIA [id number] [place] [address] [place] RBC (Bld) [#/Vol] 4.90 10*6/uL Normal 4.20-6.00 [facility] Comment on above: Order Comment: Speci men Type: BLOOD SPECIMENOrdering Facility: [facility] Address: [address] [place] [address] Performed By: #### 5 7021-8 ####[facility] LABCLIA [id number] [place] [address] [place] WBC (Bld) [#/Vol] 6.14 10*3/uL Normal 3.70-11.00 [facility] Comment on above: Order Comment: Speci men Type: BLOOD SPECIMENOrdering Facility: [facility] Address: [address] [place] [address] Performed By: #### 5 7021-8 ####[facility] LABCLIA [id number] [place] [address] [place] CNOVon 06-26-2024 CNOV Office Visit (FAMPWS ) REYNALDO ADDISON ([id number]) 1995 M Date Time Provider Department 06/26/24 12:20 PM DARYN GTZ FAMPWS During your visit today, we recorded the following information about you: Pulse Respiration Blood pressure Weight 87/minute 16/minute 116/66 52.3 kg Height 1.656 m Daryn Gtz MD 06/26/2024 2:52 PM Signed Chief Complaint Patient presents with: Establish Bhavin HPI Reynaldo Michael Addison is a 29 year old male who presents here today for Above Complaints. Accompanied today by mother. 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 Tai. We discussed possible tension headache at last OV on 05/11 and patient returned to [facility] ER on 05/13 for same complaint with [...] History PAST SURGICAL HISTORY Procedure Laterality Date CIRCUMCISION,CLAMP,NE WBORN Family History FAMILY HISTORY Problem Relation Age [...] as nee (more content not included)... Normal [facility] Comprehensive metabolic 2000 panelon 06-26-2024 Albumin [Mass/Vol] 4.7 g/dL Normal 3.9-4.9 [facility] Comment on above: Order Comment: Speci men Type: BLOOD SPECIMENOrdering Facility: [facility] Address: [address] [place] [address] Performed By: #### 2 4323-8, 2132-06, LIPNF, 3016-3 ####[facility] LABCLIA [id number] [place] [address] [place] ALP [Catalytic activity/Vol] 67 U/L Normal 38-113 [facility] Comment on above: Order Comment: Speci men Type: BLOOD SPECIMENOrdering Facility: [facility] Address: [address] [place] [address] Performed By: #### 2 8, 2132-06, LIPNF, 3016-3 ####[facility] LABCLIA [id number] [place] [address] [place] ALT [Catalytic activity/Vol] 17 U/L Normal 10-54 [facility] Comment on above: Order Comment: Speci men Type: BLOOD SPECIMENOrdering Facility: [facility] Address: [address] [place] [address] Performed By: #### 2 432-8, 2132-06, LIPNF, 3016-3 ####[facility] LABCLIA [id number] [place] [id number] [place] Anion gap [Moles/Vol] 11 mmol/L Normal 8-[address] [facility] Comment on above: Order Comment: Speci men Type: BLOOD SPECIMENOrdering Facility: [facility] Address: [address] [place] [address] Performed By: #### 2 4323-8, 2132-06, LIPNF, 3016-3 ####[facility] LABCLIA [id number] [place] [id number] [place] AST [Catalytic activity/Vol] 22 U/L Normal 14-40 [facility] Comment on above: Order Comment: Speci men Type: BLOOD SPECIMENOrdering Facility: [facility] Address: [address] [place] [address] Performed By: #### 2 4323-8, 9, LIPNF, 6-3 ####[facility] LABIA [id number] [place] [address] [place] Bilirubin [Mass/Vol] 0.4 mg/dL Normal 0.2-1.3 [facility] Comment on above: Order Comment: Speci men Type: BLOOD SPECIMENOrdering Facility: [facility] Address: [address] [place] [address] Performed By: #### 2 4323-8, 2132-06, LIPNF, 6-3 ####[facility] LABIA [id number] [place] [address] [place] Calcium [Mass/Vol] 9.9 mg/dL Normal 8.5-10.2 [facility] Comment on above: Order Comment: Speci men Type: BLOOD SPECIMENOrdering Facility: [facility] Address: [address] [place] [address] Performed By: #### 2 4323-8, 2132-06, LIPNF, 6-3 ####[facility] LABIA [id number] [place] [id number] [place] Chloride [Moles/Vol] 103 mmol/L Normal 98-107 [facility] Comment on above: Order Comment: Speci men Type: BLOOD SPECIMENOrdering Facility: [facility] Address: [address] [place] [address] Performed By: #### 2 4323-8, 9, LIPNF, 6-3 ####[facility] LABCLIA [id number] [place] [address] [place] CO2 [Moles/Vol] 28 mmol/L Normal 22-30 [facility] Comment on above: Order Comment: Speci men Type: BLOOD SPECIMENOrdering Facility: [facility] Address: [address] [place] [address] Performed By: #### 2 4323-8, 9, WENDY, 6-3 ####[facility] LABCLIA [id number] [place] [address] [place] Creatinine [Mass/Vol] 0.80 mg/dL Normal 0.73-1.[address] [facility] Comment on above: Order Comment: Speci men Type: BLOOD SPECIMENOrdering Facility: [facility] Address: [address] [place] [address] Performed By: #### 2 4323-8, 2132-06, WENDY, 3015-3 ####[facility] LABIA [id number] [place] [address] [place] Creatinine and Glomerular filtration rate.predicted panel (S/P/Bld) 123 mL/min/1.73m??? Normal >=60 [facility] Comment on above: Order Comment: Speci men Type: BLOOD SPECIMENOrdering Facility: [facility] Address: [address] [place] [address] Result Comment: Davida mated Glomerular Filtration Rate [...] actual GFR. Performed By: #### 2 4323-8, 9, LIPFRANKIE, 6-3 ####[facility] LABCLIA [id number] [place] [id number] [place] Glucose [Mass/Vol] 77 mg/dL Normal 74-99 [facility] Comment on above: Order Comment: Speci men Type: BLOOD SPECIMENOrdering Facility: [facility] Address: [address] [place] [address] Result Comment: The [place] Diabetes [employer] (ADA) provides guidance for cutoff [...] Standards of Medical Care in Diabetes 2016, [place] [employer]. Diabetes Care. 2016.39(Suppl 1). Performed By: #### 2 4323-8, 9, LIPNF, 6-3 ####[facility] LABCLIA [id number] [place] [address] [place] Potassium [Moles/Vol] 4.4 mmol/L Normal 3.7-5.[address] [facility] Comment on above: Order Comment: Mervat reeder Type: BLOOD SPECIMENOrdering Facility: [facility] Address: [address] [place] [address] Performed By: #### 2 4323-8, 9, LIPNF, 6-3 ####[facility] LABCLIA [id number] [place] [address] [place] Protein [Mass/Vol] 7.5 g/dL Normal 6.3-8.0 [facility] Comment on above: Order Comment: Kacyi varinder Type: BLOOD SPECIMENOrdering Facility: [facility] Address: [address] [place] [address] Performed By: #### 2 4323-8, 9, LIPNF, 3016-3 ####[facility] LABCLIA [id number] [place] [address] [place] Sodium [Moles/Vol] 142 mmol/L Normal 136-144 [facility] Comment on above: Order Comment: Speci men Type: BLOOD SPECIMENOrdering Facility: [facility] Address: [address] [place] [address] Performed By: #### 2 4323-8, 9, LIPNF, 3016-3 ####[facility] LABCLIA [id number] [place] [address] [place] Urea nitrogen [Mass/Vol] 7 mg/dL Low 9-24 [facility] Comment on above: Order Comment: Speci men Type: BLOOD SPECIMENOrdering Facility: [facility] Address: [address] [place] [address] Performed By: #### 2 4323-8, 9, LIPNF, 3016-3 ####[facility] LABCLIA [id number] [place] [address] [place] LIPID PANEL, NONFASTINGon Cholesterol [Mass/Vol] 153 mg/dL Normal <200 [facility] Comment on above: Order Comment: Speci men Type: BLOOD SPECIMENOrdering Facility: [facility] Address: [address] [place] [address] Result Comment: <200 mg/dL, Desirable 200-239 mg/dL, Borderline high >239 mg/dL, High Performed By: #### 2 4323-8, 2132-06, LIPNF, 3016-3 ####[facility] LABCLIA [id number] [place] [address] [place] HDL CHOLESTEROL, NF 30 mg/dL Low >39 [facility] Comment on above: Order Comment: Speci men Type: BLOOD SPECIMENOrdering Facility: [facility] Address: [address] [place] [address] Result Comment: 40-5 9 mg/dL, Acceptable >59 mg/dL, High: Negative risk factor for coronary heart disease <40 mg/dL, Low: Positive risk factor for coronary heart disease Performed By: #### 2 4323-8, 9, LIPNF, 6-3 ####[facility] LABCLIA [id number] [place] [address] [place] LDL CHOLESTEROL, NF 93 mg/dL Normal <100 [facility] Comment on above: Order Comment: Mervat reeder Type: BLOOD SPECIMENOrdering Facility: [facility] Address: [address] [place] [address] Result Comment: <100 mg/dL, Optimal 100-129 mg/dL, Near optimal/above optimal 130-159 mg/dL, Borderline high 160-189 mg/dL, High >189 mg/dL, Very high Secondary prevention optimal LDL Cholesterol levels are recommended to be < 70 mg/dL Performed By: #### 2 3-8, 2132-06, LIPNF, 3015-3 ####[facility] LABCLIA [id number] [address] [place] LDL/HDL RATIO, NF 3.10 mg/dL High <2.54 [facility] Comment on above: Order Comment: Mervat reeder Type: BLOOD SPECIMENOrdering Facility: [facility] Address: [address] [place] [address] Result Comment: Refe rence: 1. National Cholesterol Education Program ATP III Guideline At-A-Glance Quick Desk Reference: National Heart, Lung, and Blood [place]. National Institutes of Health. 2001: NIH Publication No. 01-3305. 2. An International Atherosclerosis Society position paper: global recommendations for the management of dyslipidemia: executive summary, Atherosclerosis. 2014: 232(2):410-413. Performed By: #### 2 3-8, 2132-06, LIPNF, 6-3 ####[facility] LABCLIA [id number] [place] [address] [place] NON HDL CHOL, NF 123 mg/dL Normal <130 [facility] Comment on above: Order Comment: Mervat reeder Type: BLOOD SPECIMENOrdering Facility: [facility] Address: [address] [place] [address] Result Comment: <130 mg/dL, Optimal 130-159 mg/dL, Near optimal/above optimal 160-189 mg/dL, Borderline high 190-219 mg/dL, High >219 mg/dL, Very high Secondary prevention optimal non HDL Cholesterol levels are recommended to be <100 mg/dL Performed By: #### 2 4323-8, 2132-06, LIPNF, 6-3 ####[facility] LABCLIA [id number] [place] [address] [place] T CHOL/HDL RATIO NF 5.10 mg/dL High <5.10 [facility] Comment on above: Order Comment: Speci men Type: BLOOD SPECIMENOrdering Facility: [facility] Address: [address] [place] [address] Performed By: #### 2 4328, 2132-06, LIPNF, 6-3 ####[facility] LABCLIA [id number] [place] [address] [place] TRIGLYCERIDES, NF 149 mg/dL Normal <150 [facility] Comment on above: Order Comment: Speci men Type: BLOOD SPECIMENOrdering Facility: [facility] Address: [address] [place] [address] Result Comment: <150 mg/dL, Normal 150-199 mg/dL, Borderline high 200-499 mg/dL, High >499 mg/dL, Very high Performed By: #### 2 4323-8, 2132-06, LIPNF, 6-3 ####[facility] LABCLIA [id number] [place] [id number] [place] VLDL CHOLESTEROL, NF 30 mg/dL High <30 [facility] Comment on above: Order Comment: Speci men Type: BLOOD SPECIMENOrdering Facility: [facility] Address: [address] [place] [address] Performed By: #### 2 4323-8, 2132-06, LIPNF, 6-3 ####[facility] LABCLIA [id number] [place] [id number] [place] TSH SerPl-aCncon 06-26-2024 TSH Qn 2.440 m[IU]/L Normal 0.270-4.200 [facility] Comment on above: Order Comment: Speci men Type: BLOOD SPECIMENOrdering Facility: [facility] Address: [address] [place] [address] Performed By: #### 2 4323-8, 9, LIPNF, 3016-3 ####[facility] LABCLIA [id number] [place] [address] [place] Vit B12 SerPl-mCncon 024 Cobalamin (Vitamin B12) [Mass/Vol] 200 pg/mL Low 232-1245 [facility] Comment on above: Order Comment: Speci men Type: BLOOD SPECIMENOrdering Facility: [facility] Address: [address] [place] [address] Performed By: #### 2 4323-8, 9, LIPNF, 3016-3 ####[facility] LABIA [id number] [place] [address] [place] Brain/Head without Contrasto n 05-13-2024 Brain/Head without Contrast [facility] [address] [place] [address] [id number] Brain/Head without Contrast MR#: [id number] Acct: [id number] Name: REYNALDO ADDISON III Rep #: [id number] : 1995 M 28 From: Hossein Concepcion MD PCP: Dr. Moustapha Gtz MD Status: REG ER Study: Brain/Head without Contrast Date of Exam: 05/04 Exam# [id number] Ordering Dr: Charla Sepulveda DO [id number] EXAM: CT HEAD WITHOUT INTRAVENOUS CONTRAST CLINICAL INDICATION: headache, head injury TECHNIQUE: Multiple axial images were obtained of the head without intravenous contrast. This CT exam was performed using one or more of the following dose reduction techniques: automated exposure control, adjustment of the mA and/or kV according to patient size, and/or use of iterative reconstruction technique. RADIATION DOSE: CTDIvol = 44.99 mGy, DLP = 779.24 mGy-cm COMPARISON: No relevant prior studies available. FINDINGS: BRAIN AND EXTRA-AXIAL SPACES: Unremarkable. No intra- or extra-axial hemorrhage. No evidence of acute infarct. No intracranial mass or mass effect. There is preservation of the fulton/white matter interface. Posterior fossa structures are unremarkable. Ventricles are appropriate for age. No hydrocephalus. Basal cisterns are patent. BONES/JOINTS: Unremarkable. No discrete lytic or blastic abnormalities. SINUSES: Unremarkable as visualized. Clear. MASTOID AIR CELLS: Unremarkable. Clear. ORBITS: Visualized globes, extraocular muscles, optic nerves and retrobulbar fat appear unremarkable. CT/Brain/Head without Contrast IMPRESSION: Negative head/brain CT without intravenous contrast. Electronically Signed: Hossein Concepcion MD at 14:00 EDT , CC: Dr. Moustapha Gtz MD; Dr. Charla Sepulveda DO [employer] Electrician: Signed Normal [facility] Emergency Department Summary on 05-13-2024 Emergency Department Summary [facility] Medical Records Department [address] [place] [id number] Emergency Department Summary 05/13/24 MR#: [id number] Acct: [id number] Name: REYNALDO ADDISON III Rep #: [id number] : 1995 28 From: Charla Sepulveda DO PCP: Dr. Moustapha Gtz MD Status:REG ER Location: ED HPI History of Present Illness Chief Complaint: Headache Informant: patient Narrative Narrative: Patient is 28-year-old male presenting with continued headache. Patient states a little over a week little over a week ago he was going up the stairs in his basement when he hit his head. He denies any loss of consciousness. He states he was feeling okay for a week but then has had worsening headaches since. He had nausea which developed yesterday. He states it feels like there is pressure and fogginess in his head. He points to his temples as where it is but he states his left taoist is the worst. He notes he is at increased stress because of this he does not feel he is getting better. He was previously seen in the ER and told he has a concussion and this is postconcussive syndrome. Denies any photophobia or vision changes. Denies associate numbness or tingling. Has taken Tylenol with no relief of his symptoms. States has been seen in the ER couple times for this and is concerned because he has not had any imaging. Is concerned he is not safe at home because is not taking care of himself. When asked to expand on this he states he lives with his girlfriend but he has been smoking tobacco which she thinks is bad for him especially he has a concussion. Denies any HI or SI. Does admit to being a hypochondriac. [facility] Medical History (Updated 05/13/24 @ 15:[address] Charla Sepulveda, DO) Tobacco abuse Asthma Home Medications ???Medication ???Instructions ???Recorded ???Last Taken ???Type permethrin 5 % topical cream 1 applic topical Q14D 2 doses #60 03/19/24 Unknown Rx (Elimite) grams prednisone 20 mg tablet 40 mg (2 x 20 mg) PO DAILY 5 days 05/06/24 Unknown Rx #10 tabs ondansetron 4 mg disintegrating 4 mg PO Q8H PRN PRN Nausea #10 tabs 05/13/24 Unknown Rx tablet Allergy/AdvReac Type Severity Reaction Status Date / Time cat dander (cats) Allergy Intermediate Inflammation Verified 05/13/24 12:51 of lung egg Allergy Rash Verified 05/13/24 12:51 Penicillins Allergy Rash Verified 05/13/24 12:51 Family History Father Heart disease Social History Smoking Status: Current every day smoker tobacco type: cigarettes ROS ROS ED Constitutional Constitutional ED: Denies chills or fever(s) Eyes Eyes: Denies blurry vision or change in vision ENT ENT ED: Denies sore throat Cardiovascular Cardiovascular: Denies chest pain Respiratory/Chest Respiratory/Chest: Denies cough Gastrointestinal Gastrointestinal: Reports nausea; Denies abdominal pain or vomiting Musculoskeletal Musculoskeletal: Denies arthralgias, myalgias or neck pain Integumentary Denies rash Neurologic Neurologic: Reports headache(s); Denies paresthesias or weakness Psychiatric Psychiatric: Reports anxiety EXAM Physical Exam Const Vital Signs: 05/13/24 12:51 Temperature 97.8 F Temperature Source Temporal Pulse Rate 92 Respiratory Rate 16 Blood Pressure 121/78 H Blood Pressure Mean 92 Pulse Ox 99 Oxygen Delivery Method Room Air Positive well nourished and well developed General Appearance ED: well developed and NAD HEENT Reports normocephalic atraumatic; Negative for temporal artery tenderness Eyes PERRL and EOMs intact bilaterally Neck supple and No no meningeal signs General: Negative for tenderness Resp normal respiratory effort and clear to auscultation bilaterally Cardio regular rate and regular rhythm Extremity normal to inspection and full ROM Neuro oriented x3, CN's II-XII intact bilaterally and no sensory deficits noted Kenney Coma Scale: document GCS findings Spontaneous Obeys Commands Oriented 15 Sensorium / Orientation: awake and alert Coordination / Balance: [id number]-qo-lcrj test normal Speech: speech normal Motor Exam: strength 5/5 throughout Psych mental status grossly normal Mood Affect: anxious Skin Lesions: no lesions Rashes: no rashes MDM MDM MDM Narrative Medical decision making narrative: Patient had a headache. He appears nontoxic in no acute distress. He is quite anxious and tearful. He has normal neurologic exam. No meningeal signs. Given his persistent and worsening symptoms with now nausea will obtain a CT of the brain to look for any type of subdural hematoma intracranial hemorrhage. This is negative. Patient given migraine cocktail with IV fluids, Toradol, Compazine (more content not included)... [facility] (FAMPWS ) REYNALDO ADDISON ([id number]) 1995 M Date Time Provider Department 05/11/24 11:00 AM DARYN GTZ During your visit today, we recorded the following information about you: Temperature Pulse Respiration Blood pressure 97.6 degrees 131/minute 16/minute 130/64 Weight 52.6 kg Daryn Gtz MD 05/11/2024 12:35 PM Signed Chief Complaint Patient presents with: ER F/U: Post concussion- looking for 2nd opinion HPI Reynaldo Addison is a 28 year old male who presents here today for new limited ER follow up. Accompanied today by his mother Lakeshia. Patient evaluated at [facility] ED on 05/06, 05/08, 05/09, and 05/10 [...] and now noted head trauma. Without LOC, dominican CT head rule did not indicate imaging. [...] does have an appointment with neurology in [place] in 5 days. Past medical history, appointments, [...] Surgical History PAST SURGICAL HISTORY No date: CIRCUMCISION,CLAMP,NE WBORN Family History FAMILY HISTORY Problem Relation Age [...] and forehe (more content not included)... Normal [facility] ECG COMPLETEon 05-11-2024 ECG COMPLETE Ventricular Rate : 105 BPM Atrial Rate : 105 BPM P-R Interval : 120 ms QRS Duration : 82 ms Q-T Interval : 328 ms QTC Calculation(Bazett) : 433 ms Calculated P [place] : 83 degrees Calculated R [place] : 78 degrees Calculated T [place] : 66 degrees SINUS TACHYCARDIA RIGHT ATRIAL ENLARGEMENT BORDERLINE ECG Confirmed by MD LUONG GREGORY () on 05/12/2024 11:37:15 AM NAME : LISA ADDISONMOND PID : [id number] : 1995 Gender : Male Race : ORD : [id number] Procedure Date : May 11 2024 11:57:58 Edit Date : May 12 2024 11:37:22 Diagnosis: SINUS TACHYCARDIA RIGHT ATRIAL ENLARGEMENT BORDERLINE ECG Confirmed by MD LUONG GREGORY () on 05/12/2024 11:37:15 AM Test Reason : R00.0 Tachycardia Location : 185 : [facility] Overread By : MD LUONG GREGORY Edited By : MD LUONG GREGORY Referred By : MOUSTAPHA GTZ Acquired by : Lilian YEE [facility] Emergency Department Summary on 05-10-[address] [facility] Medical Records Department [address] [place] [address] Emergency Department Summary 05/10/24 MR#: [id number] Acct: [id number] Name: PIOTRREYNALDO Victoria III Rep #: [id number] : 1995 28 From: Hossein Weber MD PCP: Care Physician,No Primary Status:DEP ER Location: ED HPI History of Present Illness Chief Complaint: Headache Narrative Narrative: 28-year-old male presents with continued headache. He states approximately a week ago he was in a basement with a lower ceiling, and hit his head. There was no loss of consciousness. Since then he has had headache. Of note, he states he was seen in the emergency department yesterday and was told that he had postconcussive syndrome, but was curious as to why CT or MRI was not performed. He denies any exacerbating or alleviating factors. He is taking fcog-mkk-nbvlxls medication with moderate relief of his symptoms. No other injury. Denies paresthesias. [facility] Medical History Tobacco abuse Asthma Home Medications ???Medication ???Instructions ???Recorded ???Last Taken ???Type permethrin 5 % topical cream 1 applic topical Q14D 2 doses #60 03/19/24 Unknown Rx (Elimite) grams prednisone 20 mg tablet 40 mg (2 x 20 mg) PO DAILY 5 days 05/06/24 Unknown Rx #10 tabs Allergy/AdvReac Type Severity Reaction Status Date / Time cat dander (cats) Allergy Intermediate Inflammation Verified 05/09/24 13:51 of lung egg Allergy Rash Verified 05/09/24 13:51 Penicillins Allergy Rash Verified 05/09/24 13:51 Family History Father Heart disease Social History Smoking Status: Current every day smoker tobacco type: cigarettes ROS ROS ED ROS Narrative Constitutional: No fever, no chills. HEENT: No sore throat. No neck pain. No loss of vision. No rhinorrhea. Cardiovascular: No chest pain. No palpitations. No pedal edema. Respiratory: No cough, no shortness of breath. Abdominal: No abdominal pain. No nausea. No vomiting. Genitourinary: No dysuria. No hematuria. Musculoskeletal: No myalgias. No arthralgias. Neurologic: Positive headaches. No dizziness. No lightheadedness. Skin: No rash. No change in color. Psychiatric: No depression. No anxiety. EXAM Physical Exam Const Vital Signs: 05/10/24 08:33 05/10/24 08:48 Temperature 96.8 F L 97.5 F L Temperature Source Temporal Pulse Rate 81 64 Respiratory Rate 16 15 Blood Pressure 132/80 H 124/65 H Blood Pressure Mean 97 84 Pulse Ox 98 99 Oxygen Delivery Method Room Air MDM MDM MDM Narrative Medical decision making narrative: Differential diagnosis includes postconcussive headache versus migraine. I did review his ED provider notes and this is his fourth visit for complaints of headache. His initial visit was on the third, then he was seen on the fifth, sixth, and now today. During his second visit, he denied trauma, but yesterday, he told the physician that he did have head trauma. As he does not take blood thinners, and his injury is very remote I do not feel CT imaging is indicated. I do not feel he needs other medications, nor do I feel he needs laboratory work. Patient was reassured. He was given the number to the local neurologist. He was told that he should also follow-up with a primary care provider. He was discharged in stable condition. He was reassured that he has a nonemergent condition, and that his medical screening exam is normal. Disposition is discharged home in stable condition. History Record Review Discussion w/independent historian: Patient Discharge Plan Triage Chief Complaint: Headache ED Provider: Hossein Weber Dx/Rx/DC Orders Clinical Impression: Post-concussion headache, Encounter for medical screening examination Instructions: After a Concussion, ED Concussion, ED Screening Exam Medical Nonurgent Prescriptions: No Action permethrin [Elimite] 5 % cream 1 applic topical Q14D Qty: 60 0RF Rx Instructions: apply second treatment 7 days after first treatment prednisone 20 mg tablet 40 mg PO DAILY 5 Days Qty: 10 0RF Primary Care Provider: Care Physician,No Primary Referrals: Reynaldo Wells MD [Non-Staff -Ordering Privileges] - As soon as possible Care Physician,No Primary [Primary Care Provider] - Print Language: Taiwanese Disposition Disposition: Home, Self Care Discharge Date/Time: 05/10/24 09:12 What to do if you have Problems For any increased pain, shortness of breath, bleeding, nausea or vomiting, chest pain, or any unexpected problems, contact your Primary Care Provider. Call [facility] ([phone]) or report to the closest Emergency Room. Call 911 if neces (more content not included)... Normal [facility] Emergency Department Summary on 05-09-[address] [facility] Medical Records Department [address] [place] [address] Emergency Department Summary 05/09/24 MR#: [id number] Acct: [id number] Name: REYNALDO ADDISON III Rep #: [id number] : 1995 28 From: Kendrick Page MD PCP: Care Physician,No Primary Status:REG ER Location: ED HPI History of Present Illness Chief Complaint: Headache Detail of Chief Complaint: Left-sided headache parietal area Informant: patient Onset/Context/Timing Onset: Weeks (Greater than 1 week) Context: Sudden Timing: Intermittent Quality -Headache: Positive for Dull; Negative for Similar Prior Headaches Location: Left parietal Current Severity: Moderate Maximum Severity: Severe Worsened by: Nothing specific Relieved by: Nothing Associated Symptoms/Injury Associated Symptoms: Positive for Nausea; Negative for Fever, Vomiting, Sore Throat, Sinus Pressure, Numbness, Tingling, Preceding Aura, Visual Changes, Blurred Vision, Photophobia or Visual Loss Injury - MOURA: Positive for Direct Trauma (Prior to onset of headaches, hit head on cabinet) Narrative Narrative: Patient is a 28-year-old male. Patient has no significant past medical history other than COVID. Most recent diagnosis of COVID August 2023. Patient presents with left parietal head pain. This started after head trauma. This is his third visit for the headache. He states the medication was given yesterday helped but returned. He denies double vision, blurred vision loss of vision. Eyes maddi ears decreased hearing. Eyes rhinorrhea, congestion, postnasal drainage sore throat. Denies cough or shortness of breath. He does endorse nausea without vomiting diarrhea. He denies urologic symptoms. He denies rash. He denies myalgias arthralgias. Denies joint swelling. Mother has a history of migraine. He does not have history of migraines. Prior similar symptoms: Yes Recent Illness/Hospitalizati on: Yes [facility] Medical History (Updated 05/09/24 @ 15:[address] Kendrick Page MD) Tobacco abuse Asthma Home Medications ???Medication ???Instructions ???Recorded ???Last Taken ???Type permethrin 5 % topical cream 1 applic topical Q14D 2 doses #60 03/19/24 Unknown Rx (Elimite) grams prednisone 20 mg tablet 40 mg (2 x 20 mg) PO DAILY 5 days 05/06/24 Unknown Rx #10 tabs Allergy/AdvReac Type Severity Reaction Status Date / Time cat dander (cats) Allergy Intermediate Inflammation Verified 05/09/24 13:51 of lung egg Allergy Rash Verified 05/09/24 13:51 Penicillins Allergy Rash Verified 05/09/24 13:51 Family History Father Heart disease Social History Smoking Status: Current every day smoker tobacco type: cigarettes ROS ROS ED Constitutional Constitutional ED: Denies chills, fever(s), subjective, sweats or weight loss Eyes Eyes: Denies blurry vision, change in vision or diplopia ENT ENT ED: Denies ear pain, rhinorrhea or sore throat Cardiovascular Cardiovascular: Denies chest pain, palpitations or racing heartbeat Respiratory/Chest Respiratory/Chest: Denies cough, dyspnea or dyspnea on exertion Gastrointestinal Gastrointestinal: Reports nausea; Denies abdominal pain, diarrhea or vomiting Genitourinary Genitourinary ED: Denies dysuria, hematuria or urinary frequency Musculoskeletal Musculoskeletal: Denies arthralgias, back pain, myalgias or neck pain Integumentary Denies rash Neurologic Neurologic: Reports headache(s); Denies paresthesias or weakness Psychiatric Psychiatric: Reports anxiety; Denies depression Hematologic/Lymphatic Hematologic/Lymphatic : Denies easy bleeding or easy bruising EXAM Physical Exam Const Vital Signs: 05/09/24 13:51 Temperature 98.1 F Temperature Source Temporal Pulse Rate 103 H Respiratory Rate 18 Blood Pressure 135/88 H Blood Pressure Mean 103 Pulse Ox 99 Oxygen Delivery Method Room Air Positive well nourished and well developed General Appearance ED: well developed and NAD; Negative for cyanotic, diaphoretic or pallor HEENT Reports normocephalic, TM's clear and moist mucous membranes HEENT Narrative: Posterior pharynx is normal. atraumatic Face and Sinus: Negative for sinus tenderness Tympanic Membrane ED: Yes TM's clear Eyes PERRL and EOMs intact bilaterally Eyes Narrative: There is no nystagmus. There is no photophobia. There is no APD. General Eye ED: Negative for pale conjunctiva or scleral icterus Neck no lymphadenopathy, supple, no meningeal signs and no JVD Resp normal respiratory effort and clear to auscultation bilaterally Cardio regular rate, regular rhythm, S1 normal heart sound, S2 normal heart sound and no murmurs GI non-tender Auscultation: normoactive bowel sounds Palpation: (more content not included)... Normal [facility] Emergency Department Summary on 05-08-[address] [facility] Medical Records Department [address] [place] [address] Emergency Department Summary 05/08/24 MR#: [id number] Acct: [id number] Name: REYNALDO ADDISON III Rep #: [id number] : 1995 28 From: Jelani Scott DO PCP: Care Physician,No Primary Status:REG ER Location: ED HPI History of Present Illness Chief Complaint: Headache Narrative Narrative: Patient is a 28-year-old male with no known significant past medical history who presented to the emergency department chief complaint of headache. Patient states that he has had a headache for about 4 days now that slowly progressively worsened prompting him to come here for further evaluation management. Patient states that he has been taking lisj-zrg-kywyfst medication without any symptomatic relief. He states that he has been hydrating. Patient denies any trauma to his head. Patient denies any blood thinning medications. [facility] Medical History (Updated 05/08/24 @ 14:[address] Jelani Scott, ) Tobacco abuse Asthma Home Medications ???Medication ???Instructions ???Recorded ???Last Taken ???Type albuterol 90 mcg/actuation aerosol mcg inhalation Q4H PRN PRN SOB 05/30/23 Unknown History inhaler ondansetron 4 mg disintegrating 4 mg PO Q8H PRN PRN Nausea #10 tabs 08/14/23 Unknown Rx tablet permethrin 5 % topical cream 1 applic topical Q14D 2 doses #60 03/19/24 Unknown Rx (Elimite) grams azelastine 137 mcg (0.1 %) nasal 2 spray intranasal BID #30 mL 05/06/24 Unknown Rx spray prednisone 20 mg tablet 40 mg (2 x 20 mg) PO DAILY 5 days 05/06/24 Unknown Rx #10 tabs Allergy/AdvReac Type Severity Reaction Status Date / Time cat dander (cats) Allergy Intermediate Inflammation Verified 05/08/24 12:09 of lung egg Allergy Rash Verified 05/08/24 12:09 Penicillins Allergy Rash Verified 05/08/24 12:09 Family History Father Heart disease Social History Smoking Status: Current every day smoker tobacco type: cigarettes ROS ROS ED ROS Narrative Constitutional: Complains of headache as noted above denies any fevers, chills, lightheadedness, dizziness Eyes: Denies change in vision double vision blurry vision Cardiovascular: Denies chest pain or palpitations Respiratory: Denies coughing wheezing shortness of breath Abdomen: Denies abdominal pain vomiting diarrhea Neurological: Denies numbness, weakness, tingling Musculoskeletal: Denies back pain Skin: Denies rashes or lesions EXAM Physical Exam Narrative Exam Narrative: General: Patient lying in bed rest comfortably did not appear to be in acute distress Head: Atraumatic, normocephalic Eyes: PERRL bilaterally, EOMI bilaterally, no conjunctival injection noted Neck: Soft, supple, trachea midline, patient has full range of motion of his neck no pain elicited no concern for meningitis Cardiovascular: Regular rate and rhythm no murmurs gallops rubs noted Respiratory: Clear to auscultation bilaterally Abdomen: Soft, nondistended, no tenderness palpation Extremities: +5/5 strength noted in the bilateral upper and lower extremities, no pedal edema noted on exam, Neurological: Patient is following commands knew that he was at [facility] the year is 2023 Skin: Warm, dry, intact, no rashes or lesions noted Const Vital Signs: 05/08/24 11:42 Temperature 97.9 F Temperature Source Temporal Pulse Rate 101 H Respiratory Rate 16 Blood Pressure 128/78 H Blood Pressure Mean 94 Pulse Ox 98 Oxygen Delivery Method Room Air MDM MDM MDM Narrative Medical decision making narrative: Patient is a 28-year-old male who presented to the emergency department chief complaint of headache. On the differential diagnosis includes Melamin to migraine headache, tension headache, cluster headache patient be given IV fluids, Toradol, Reglan, Benadryl here in the emergency department then be reevaluated. On reevaluation of the patient he feels significantly improved and would like to go home at this point time. COVID test negative. He is requesting referral to a primary care physician for which 1 was provided. He was encouraged to return with worsening symptoms or other concerns. All question concerns answered he is discharged home in stable condition Discharge Plan Triage Chief Complaint: Headache ED Provider: Jelani Scott Dx/Rx/DC Orders Clinical Impression: Headache Instructions: ED Headache Unspecified Prescriptions: No Action albuterol 90 mcg/actuation aerosol inhalation Q4H PRN PRN (Reason: SOB) ondansetron [ondansetron] 4 mg tablet,disintegrating 4 mg PO Q8H PRN PRN (Reason: Nausea) Qty: 10 0RF permethrin [Elimite] 5 % cream 1 applic topical Q14D Qty (more content not included)... Normal [facility] M100.678on 05-08-2024 M100.678 SARS-CoV-2 (COVID 19 ) Negative INFLUENZA A Negative INFLUENZA B Negative RSV PCR Negative Normal [facility] Comment on above: Performed By: #### M 100.678 ####[facility] [id number] [facility] [place], [address] Emergency Department Summary on 05-06-2024 Emergency Department Summary [facility] [facility] Medical Records Department [address] [place] [address] Emergency Department Summary 05/06/24 MR#: [id number] Acct: [id number] Name: REYNALDO ADDISON NIDHI Rep #: [id number] : 1995 28 From: Yossi Guerra DO PCP: Care Physician,No Primary Status:DEP ER Location: ED HPI History of Present Illness Chief Complaint: Headache Informant: patient Narrative Narrative: Patient is a 28-year-old male with past medical history of asthma. He states he has had 2 to 3 days of generalized fatigue and headache. He denies any trauma or history of migraine. He states there are multiple sick contacts at work with COVID and he has concerned that his symptoms may be secondary to this and therefore comes in for evaluation [facility] Medical History (Updated 05/09/24 @ 22:[address] Yossi Guerra DO) Tobacco abuse Asthma Home Medications ???Medication ???Instructions ???Recorded ???Last Taken ???Type permethrin 5 % topical cream 1 applic topical Q14D 2 doses #60 03/19/24 Unknown Rx (Elimite) grams prednisone 20 mg tablet 40 mg (2 x 20 mg) PO DAILY 5 days 05/06/24 Unknown Rx #10 tabs Allergy/AdvReac Type Severity Reaction Status Date / Time cat dander (cats) Allergy Intermediate Inflammation Verified 05/09/24 13:51 of lung egg Allergy Rash Verified 05/09/24 13:51 Penicillins Allergy Rash Verified 05/09/24 13:51 Family History Father Heart disease Social History Smoking Status: Current every day smoker tobacco type: cigarettes ROS ROS ED Constitutional Constitutional ED: Reports chills, fever(s) and subjective Eyes Eyes: Denies blurry vision or change in vision ENT ENT ED: Reports rhinorrhea; Denies sore throat Cardiovascular Cardiovascular: Denies chest pain Respiratory/Chest Respiratory/Chest: Denies cough or dyspnea Gastrointestinal Gastrointestinal: Denies abdominal pain, diarrhea, nausea or vomiting Genitourinary Genitourinary ED: Denies dysuria Musculoskeletal Musculoskeletal: Reports myalgias Integumentary Denies rash Neurologic Neurologic: Reports headache(s) Hematologic/Lymphatic Hematologic/Lymphatic : Denies easy bleeding or easy bruising EXAM Physical Exam Const Vital Signs: 05/06/24 15:42 05/06/24 17:42 05/06/24 19:00 Temperature 96.9 F L Temperature Source Temporal Pulse Rate 89 77 74 Respiratory Rate 16 16 16 Blood Pressure 123/78 H 123/65 H 114/64 Blood Pressure Mean 93 84 80 Pulse Ox 98 98 98 Oxygen Delivery Method Room Air Room Air Room Air Positive well nourished and well developed General Appearance ED: well developed; Negative for pallor HEENT Reports moist mucous membranes HEENT Narrative: Nasal mucosa is hyperemic and boggy There is cobblestoning noted in the posterior pharynx consistent with sinus drainage without airway edema or compromise Eyes PERRL and EOMs intact bilaterally General Eye ED: Negative for pale conjunctiva or scleral icterus Neck supple Neck Narrative: No nuchal rigidity or meningeal signs noted Resp normal respiratory effort and clear to auscultation bilaterally Cardio regular rate and regular rhythm Extremity normal to inspection Neuro oriented x3, CN's II-XII intact bilaterally and no sensory deficits noted Neuro Narrative: Cranial nerves II to XII are grossly intact there are no focal neurologic deficits No pronator drift no dysmetria no truncal ataxia GCS 15 NIH stroke scale score of 0 Sensorium / Orientation: alert Motor Exam: strength 5/5 throughout Psych Psych Narrative: Patient has a flat affect Skin no rashes or lesions noted General Skin Exam: Negative for jaundice or pallor MDM MDM MDM Narrative Medical decision making narrative: Patient arrived to ER with stable vitals and a nonfocal neurologic exam. There is no report or signs of trauma so my concern for underlying skull fracture versus epidural or subdural hematoma is low and I do not feel there is a need for a CT scan. Patient also has no meningeal signs so there is no need for laboratory testing or lumbar puncture. Symptoms are most consistent with viral syndrome and as she reports multiple sick contacts with COVID there is high concern for this so rapid viral swab will be obtained. Patient's viral swab was negative and on repeat evaluation his vitals remained stable and his neurologic exam normal. With low concern for underlying neurologic event I do not feel there is need for further workup and he is otherwise safe for discharge History Record Review Discussion w/independent historian: Patient Discharge Plan Triage Chief Complaint: Headache ED Provider: Yossi Guerra Dx/Rx/DC Orders Cl (more content not included)... Normal [facility] M100.7on 05-06-2024 M100.677 Negative Normal [facility] Comment on above: Performed By: #### M 100677, [id number] #### [facility] [address] [place], [place], [address] M100.8on 05-06-2024 M100.8 SARS-CoV-2 (COVID 19 ) Negative INFLUENZA A Negative INFLUENZA B Negative RSV PCR Negative Normal [facility] Comment on above: Performed By: #### M 100.677, [id number] #### [facility] [address] [place], [place], [id number] CNOVon 01-15-2024 CNOV Office Visit (UCWSTR ) REYNALDO ADDISON ([id number]) 1995 M Date Time Provider Department 01/15/24 11:45 AM KEVIN STEWART [facility] During your visit today, we recorded the following information about you: Temperature Pulse Respiration Blood pressure 98.4 degrees 89/minute 18/minute 122/72 Weight 48.4 kg Kevin Stewart APRN.WEDDING CONSULTANT 01/15/2024 12:21 PM Signed Subjective HPI Nontoxic-appearing [...] 07/22/2018 PAST SURGICAL HISTORY Procedure Laterality Date CIRCUMCISION,CLAMP,NE WBORN ALLERGIES Penicillins and Eggs [Egg] MEDICATIONS acetic [...] asthma exacer (more content not included)... Normal [facility] CNOVon 12-31-2023 CNOV Office Visit (UCTR ) REYNALDO ADDISON ([id number]) 1995 M Date Time Provider Department 12/31/23 7:30 PM KEVIN STEWART [facility] During your visit today, we recorded the following information about you: Temperature Pulse Respiration Blood pressure 97.5 degrees 86/minute 18/minute 117/73 Weight 46 kg Kevin Stewart APRN.WEDDING CONSULTANT 12/31/2023 7:40 PM Signed Subjective HPI Nontoxic-appearing [...] 07/22/2018 PAST SURGICAL HISTORY Procedure Laterality Date CIRCUMCISION,CLAMP,NE WBORN ALLERGIES Penicillins and Eggs [Egg] MEDICATIONS acetic [...] of care. This note was generated using Kaggle software. It may contain errors in wording, punctuation, or spelling. Kevin Worthy (more content not included)... Normal [facility] Absolute lymphocyte countOrd ered By: Deng Palmer on 09-06-2023 Lymphocytes Auto (Unsp spec) [#/Vol] 0.26 10*3/uL 0.83-4.51 [facility] Basophil percentageOrdered B y: Deng Palmer on 09-06-2023 Basophils/100 WBC (Bld) 0.4 % 0-1 [facility] Chloride [Moles/Vol] 103 mmol/L 98-107 [facility] Eosinophils/100 WBC (Bld) 0.2 % 0-5 [facility] Glucose [Mass/Vol] 96 mg/dL 74-106 [facility] Neutrophils (Bld) [#/Vol] 3.9 10*3/uL 2.0-7.7 [facility] Neutrophils/100 WBC (Bld) 81.9 % 47-70 [facility] Potassium [Moles/Vol] 3.9 mmol/L 3.5-5.1 [facility] Sodium [Moles/Vol] 136 mmol/L 136-145 [facility] WBC (Bld) [#/Vol] 4.8 10*3/uL 4.4-11.0 [facility] Blood erythrocytes count (nu mber/volume)Ordered By: Deng Palmer on 09-06-2023 RBC (Bld) [#/Vol] 4.54 10*6/uL 4.6-6.2 [facility] Blood hemoglobin measurement (mass/volume)Ordered By: Deng Palmer on 09-06-2023 Hemoglobin (Bld) [Mass/Vol] 14.0 g/dL 13.0-16.5 [facility] Blood lymphocytes/100 leukoc ytesOrdered By: Deng Palmer on 09-06-2023 Lymphocytes/100 WBC (Bld) 5.4 % 19-41 [facility] Blood manual differential co mment interpretation (narrative result)Ordered By: Deng Palmer on 09-06-2023 Manual differential comment Godwin (Bld) [Interp] SEE COMMENT [facility] Comment on above: LYMPHOPENIA NOTED Blood monocytes/100 leukocyt esOrdered By: Deng Palmer on 09-06-2023 Monocytes/100 WBC (Bld) 11.9 % 0-10 [facility] Blood platelet adequacy dete ction by light microscopyOrdered By: Deng Palmer on 09-06-2023 Platelets LM Ql (Bld) ADEQUATE ADEQ [facility] Blood platelet mean volumeOr dered By: Deng Palmer on 09-06-2023 Platelet mean volume (Bld) [Entitic vol] 9.7 fL 6.2-12.0 [facility] Determination of erythrocyte mean corpuscular volume (MCV)Ordered By: Deng Palmer on 09-06-2023 MCV (RBC) [Entitic vol] 92.1 fL 80-94 [facility] Hematocrit Auto (Bld) [Volum e fraction]Ordered By: Deng Palmer on 12-04-2023 Hematocrit (Bld) [Volume fraction] 41.8 % 40-54 [facility] Influenza virus A and B and SARS-CoV-2 (COVID-19) Ag panel - Upper respiratory specimOrdered By: Deng Palmer on 09-06-2023 SARS-CoV-2 & FLU Antigen (Rapid) SARS-CoV-2 (COVID 19) [facility] - Chemistry and C hemistry - challengeOrdered By: Deng Palmer on 09-06-2023 CO2 [Moles/Vol] 26.0 mmol/L 21.0-32.0 [facility] Urea nitrogen/Creatinine [Mass ratio] 7.1 mg/mg 10-20 [facility] - Hematology and Cell countsOrdered By: Deng Palmer on 09-06-2023 Anisocytosis Ql (Bld) [facility] Erythrocyte distribution width (RBC) [Entitic vol] 43.7 fL 35.1-43.9 [facility] Erythrocyte distribution width (RBC) [Ratio] 12.9 % 11.6-14.6 [facility] Immature granulocytes/100 WBC (Bld) 0.200 % 0.0-0.9 [facility] Comment on above: IG% - Immature Granu locytes (promyelocytes, myelocytes and metamyelocytes) > 1% indicates that a LEFT SHIFT is Present. MCH (RBC) [Entitic mass] 30.8 pg 27.0-32.0 [facility] Nucleated RBC/100 WBC (Bld) [Ratio] 0 % 0-5 [facility] MCHC Auto (RBC) [Mass/Vol]Or dered By: Deng Palmer on 09-06-2023 MCHC (RBC) [Mass/Vol] 33.5 g/dL 32-36 [facility] Macrocytes detectionOrdered By: Deng Palmer on 09-06-2023 Macrocytes Ql (Bld) [facility] No Panel InformationOrdered By: Deng Palmer on 09-06-2023 Estimated Creatinine Clearance Calc 83.33 ml/min [facility] Estimated GFR (MDRD) Amer 139 mL/min >60 [facility] Comment on above: GFR Calc Estimated GFR (MDRD) Non-Af Amer 115 mL/min >60 [facility] Comment on above: Non- GFR Calc Platelets bldOrdered By: Antonio Palmer on 09-06-2023 Platelets (Bld) [#/Vol] 163 10*3/uL 150-450 [facility] RBC morphologyOrdered By: Neymar Porter on 09-06-2023 RBC morphology finding Nom (Bld) N CHROM NORMAL NORM C&C [facility] Serum or plasma calcium yoni urement (mass/volume)Ordered By: Deng Palmer on 09-06-2023 Calcium [Mass/Vol] 9.0 mg/dL 8.5-10.1 [facility] Serum or plasma creatinine m easurement (mass/volume)Ordered By: Deng Palmer on 09-06-2023 Creatinine [Mass/Vol] 0.84 mg/dL 0.70-1.30 [facility] Comment on above: The validity of the calculated GFR & GFRAA in patients over 70 years has not been determined. Clinical correlation is essential. Serum or plasma urea nitroge n measurement (mass/volume)Ordered By: Deng Palmer on 09-06-2023 Urea nitrogen [Mass/Vol] 6 mg/dL 7-18 [facility] Thin prep Papanicolaou smear with manual screeningOrdered By: Deng Palmer on 09-06-2023 Thin prep Papanicolaou smear with manual screening 7 5-15 [facility] STREP A MOLECULAR (POC)on Procedural Control Valid [facility] Strep A (POCT) Negative Negative [facility] Absolute lymphocyte countOrd ered By: Hossein Weber on 05-30-2023 Lymphocytes Auto (Unsp spec) [#/Vol] 3.50 10*3/uL 0.83-4.51 [facility] Basophil percentageOrdered B y: Hossein Weber on 05-30-2023 Basophils/100 WBC (Bld) 0.7 % 0-1 [facility] Chloride [Moles/Vol] 105 mmol/L 98-[address] [facility] Eosinophils/100 WBC (Bld) 1.1 % 0-5 [facility] Glucose [Mass/Vol] 101 mg/dL 74-106 [facility] Comment on above: Fasting Glucose resu lt from 100 to 125 mg/dL suggests IMPAIRED HOMEOSTASIS per A.D.A. criteria. Neutrophils (Bld) [#/Vol] 2.8 10*3/uL 2.0-7.7 [facility] Neutrophils/100 WBC (Bld) 40.1 % 47-70 [facility] Potassium [Moles/Vol] 4.0 mmol/L 3.5-5.1 [facility] Comment on above: Moderate Hemolysis, Result may be falsely increased. Sodium [Moles/Vol] 140 mmol/L 136-145 [facility] WBC (Bld) [#/Vol] 7.1 10*3/uL 4.4-11.0 [facility] Blood erythrocytes count (nu mber/volume)Ordered By: Hossein Weber on 05-30-2023 RBC (Bld) [#/Vol] 4.94 10*6/uL 4.6-6.2 [facility] Blood hemoglobin measurement (mass/volume)Ordered By: Hossein Weber on 05-30-2023 Hemoglobin (Bld) [Mass/Vol] 15.5 g/dL 13.0-16.5 [facility] Blood lymphocytes/100 leukoc ytesOrdered By: Hossein Weber on 05-30-2023 Lymphocytes/100 WBC (Bld) 49.6 % 19-41 [facility] Blood monocytes/100 leukocyt esOrdered By: Hossein Weber on 05-30-2023 Monocytes/100 WBC (Bld) 8.4 % 0-10 [facility] Blood platelet mean volumeOr dered By: Hossein Weber on 05-30-2023 Platelet mean volume (Bld) [Entitic vol] 9.6 fL 6.2-12.0 [facility] Determination of erythrocyte mean corpuscular volume (MCV)Ordered By: Hossein Weber on 05-30-2023 MCV (RBC) [Entitic vol] 93.5 fL 80-94 [facility] Hematocrit Auto (Bld) [Volum e fraction]Ordered By: Hossein Weber on 05-30-2023 Hematocrit (Bld) [Volume fraction] 46.2 % 40-54 [facility] - Chemistry and C hemistry - challengeOrdered By: Hossein Weber on 05-30-2023 CO2 [Moles/Vol] 29.0 mmol/L 21.0-32.0 [facility] Urea nitrogen/Creatinine [Mass ratio] 7.8 mg/mg 10-20 [facility] - Hematology and Cell countsOrdered By: Hossein Weber on 05-30-2023 Erythrocyte distribution width (RBC) [Entitic vol] 43.7 fL 35.1-43.9 [facility] Erythrocyte distribution width (RBC) [Ratio] 12.6 % 11.6-14.6 [facility] Immature granulocytes/100 WBC (Bld) 0.100 % 0.0-0.9 [facility] Comment on above: IG% - Immature Granu locytes (promyelocytes, myelocytes and metamyelocytes) > 1% indicates that a LEFT SHIFT is Present. MCH (RBC) [Entitic mass] 31.4 pg 27.0-32.0 [facility] Nucleated RBC/100 WBC (Bld) [Ratio] 0 % 0-5 [facility] MCHC Auto (RBC) [Mass/Vol]Or dered By: Hossein Weber on 05-30-2023 MCHC (RBC) [Mass/Vol] 33.5 g/dL 32-36 [facility] No Panel InformationOrdered By: Hossein Weber on 05-30-2023 Troponin I High Sensitivity < 3 pg/mL 3.0-78.0 [facility] Comment on above: Please Note: New Mandie t Units and Gender Specific Reference Ranges. For more information see Policy Stat Procedure Aubrey High Sensitivity Troponin (TNIH) and attachments. Estimated Creatinine Clearance Calc 80.07 ml/min [facility] Estimated GFR (MDRD) Amer 131 mL/min >60 [facility] Comment on above: GFR Calc Estimated GFR (MDRD) Non-Af Amer 108 mL/min >60 [facility] Comment on above: Non- GFR Calc Platelets bldOrdered By: Raul Weber on 05-30-2023 Platelets (Bld) [#/Vol] 190 10*3/uL 150-450 [facility] Serum or plasma calcium yoni urement (mass/volume)Ordered By: Hossein Weber on 05-30-2023 Calcium [Mass/Vol] 9.2 mg/dL 8.5-10.1 [facility] Serum or plasma creatinine m easurement (mass/volume)Ordered By: Hossein Weber on 05-30-2023 Creatinine [Mass/Vol] 0.89 mg/dL 0.70-1.30 [facility] Comment on above: The validity of the calculated GFR & GFRAA in patients over 70 years has not been determined. Clinical correlation is essential. Serum or plasma urea nitroge n measurement (mass/volume)Ordered By: Hossein Weber on 05-30-2023 Urea nitrogen [Mass/Vol] 7 mg/dL 04-20 [facility] Thin prep Papanicolaou smear with manual screeningOrdered By: Hossein Weber on 05-30-2023 Thin prep Papanicolaou smear with manual screening 6 02-15 [facility] XR Chest PA and Lateralon IMPRESSION: No active disease. [employer]electric [employer] Electrician: OTILIO Transcribe Date/Time: Mar 18 2021 5:45P Dictated by : RAMOS MATTA MD This examination was interpreted and the report reviewed and electronically signed by: RAMOS MATTA MD on Mar 18 2021 5:46PM [facility] DIVISION OF RADIOLOGY * * *Final Report* [...] soft tissues: Unremarkable. DIVISION OF RADIOLOGY Provider, [facility]18/[facility]21 * * *Final Report* * [...] tissues: Unremarkable. IMPRESSION IMPRESSION: No active disease. 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 Moustapha Gtz MD Work Phone: 8(153)935-882301 [place] [address] 04-18-2025 11:03-0400 Diastolic blood pressure 62 mm[Hg] Dr. Moustapha Gtz MD Work Phone: 8(187)378-274201 [place] [address] 04-18-2025 11:03-0400 Heart rate 75 /min Dr. Moustapha Gtz MD Work Phone: [facility] 04-18-2025 11:03-0400 Respiratory rate 17 /min Dr. Moustapha Gtz MD Work Phone: 5(646)105-558101 [place] [address] 04-18-2025 11:03-0400 SaO2% (BldA) [Mass fraction] 100 % Dr. Moustapha Gtz MD Work Phone: [facility] 04-18-2025 11:03-0400 Systolic blood pressure 103 mm[Hg] Dr. Moustapha Gtz MD Work Phone: [facility] 04-18-2025 10:02-0400 Body height 167.[address] Moustapha Gtz MD Work Phone: 2(059)638-096801 [place] [address] 04-18-2025 10:02-0400 Body mass index (BMI) [Ratio] 17.7 kg/m2 Dr. Moustapha Gtz MD Work Phone: 5(099)257-159593 [place] [address] 04-18-2025 10:02-0400 Body weight 49.[address] Moustapha Gtz MD Work Phone: 7(871)318-216293 [place] [address] 03-16-2025 22:53-0400 Body temperature 98.7 [degF] Dr. Moustapha Gtz MD Work Phone: 1(708)940-241293 [place] [address] 03-16-2025 22:53-0400 Diastolic blood pressure 67 mm[Hg] Dr. Moustapha Gtz MD Work Phone: 5(245)971-517793 [place] [address] 03-16-2025 22:53-0400 Heart rate 77 /min Dr. Moustapha Gtz MD Work Phone: 0(188)437-277893 [place] [address] 03-16-2025 22:53-0400 Respiratory rate 16 /min Dr. Moustapha Gtz MD Work Phone: 5(557)816-852793 [place] [address] 03-16-2025 22:53-0400 SaO2% (BldA) [Mass fraction] 100 % Dr. Moustapha Gtz MD Work Phone: 8(387)853-652593 [place] [address] 03-16-2025 22:53-0400 Systolic blood pressure 116 mm[Hg] Dr. Moustapha Gtz MD Work Phone: 6(800)142-929493 [place] [address] 03-16-2025 21:52-0400 Body height 167.[address] Moustapha Gtz MD Work Phone: 8(083)297-770293 [place] [address] 03-16-2025 21:52-0400 Body mass index (BMI) [Ratio] 17 kg/m2 Dr. Moustapha Gtz MD Work Phone: 5(354)994-368193 [place] [address] 03-16-2025 21:52-0400 Body weight 47.[address] Moustapha Gtz MD Work Phone: 2(472)157-366493 [place] [address] 01-11-2025 17:26-0400 Body height 167.[address] Moustapha Gtz MD Work Phone: 8(703)808-468693 [place] [address] 01-11-2025 17:26-0400 Body mass index (BMI) [Ratio] 17.1 kg/m2 Dr. Moustapha Gtz MD Work Phone: 4(502)292-075193 [place] [address] 01-11-2025 17:26-0400 Body temperature 97 [degF] Dr. Moustapha Gtz MD Work Phone: 0(849)787-769193 [place] [address] 01-11-2025 17:26-0400 Body weight 48.[address] Moustapha Gtz MD Work Phone: 7(112)212-924093 [place] [address] 01-11-2025 17:26-0400 Diastolic blood pressure 73 mm[Hg] Dr. Moustapha Gtz MD Work Phone: 7(846)217-549693 [place] [address] 01-11-2025 17:26-0400 Heart rate 83 /min Dr. Moustapha Gtz MD Work Phone: 1(778)826-044493 [place] [address] 01-11-2025 17:26-0400 Respiratory rate 18 /min Dr. Moustapha Gtz MD Work Phone: 8(435)947-937593 [place] [address] 01-11-2025 17:26-0400 SaO2% (BldA) [Mass fraction] 100 % Dr. Moustapha Gtz MD Work Phone: 0(451)529-154793 [place] [address] 01-11-2025 17:26-0400 Systolic blood pressure 127 mm[Hg] Dr. Moustapha Gtz MD Work Phone: 7(814)755-002593 [place] [address] 11-05-2024 18:01-0500 Diastolic blood pressure 89 mm[Hg] Dr. Moustapha Gtz MD Work Phone: 3(918)735-638993 [place] [address] 11-05-2024 18:01-0500 Systolic blood pressure 128 mm[Hg] Dr. Moustapha Gtz MD Work Phone: 5(797)648-617193 [place] [address] 11-05-2024 15:49-0500 Body mass index (BMI) [Ratio] 16.9 kg/m2 Dr. Moustapha Gtz MD Work Phone: 0(202)583-914393 [place] [address] 11-05-2024 15:49-0500 Body temperature 97 [degF] Dr. Moustapha Gtz MD Work Phone: [facility] 11-05-2024 15:49-0500 Body weight 47.[address] Moustapha Gtz MD Work Phone: [facility] 11-05-2024 15:49-0500 Heart rate 106 /min Dr. Moustapha Gtz MD Work Phone: [facility] 11-05-2024 15:49-0500 Respiratory rate 15 /min Dr. Moustapha Gtz MD Work Phone: [facility] 11-05-2024 15:49-0500 SaO2% (BldA) [Mass fraction] 97 % Dr. Moustapha Gtz MD Work Phone: [facility] 07-23-2024 10:02-0400 Body mass index (BMI) [Ratio] 18.38 kg/m2 Genevieve Wade CORPORATE QUALITY ASSURANCE MANAGER.WEDDING CONSULTANT Work Phone: [facility] 07-23-2024 10:02-0400 Body temperature 98.6 [degF] Genevieve Wade CORPORATE QUALITY ASSURANCE MANAGER.WEDDING CONSULTANT Work Phone: [facility] 07-23-2024 10:02-0400 Body weight 50.4 kg Genevieve Wade CORPORATE QUALITY ASSURANCE MANAGER.WEDDING CONSULTANT Work Phone: [facility] 07-23-2024 10:02-0400 Diastolic blood pressure 75 mm[Hg] Genevieve Wade CORPORATE QUALITY ASSURANCE MANAGER.WEDDING CONSULTANT Work Phone: [facility] 07-23-2024 10:02-0400 Heart rate 92 /min Genevieve Wade CORPORATE QUALITY ASSURANCE MANAGER.WEDDING CONSULTANT Work Phone: [facility] 07-23-2024 10:02-0400 Respiratory rate 18 /min Genevieve Wade CORPORATE QUALITY ASSURANCE MANAGER.WEDDING CONSULTANT Work Phone: [facility] 07-23-2024 10:02-0400 SaO2% (BldA) [Mass fraction] 100 % Genevieve Wade CORPORATE QUALITY ASSURANCE MANAGER.WEDDING CONSULTANT Work Phone: [facility] 07-23-2024 10:02-0400 Systolic blood pressure 112 mm[Hg] Genevieve Wade DAVID Work Phone: [facility] 06-26-2024 12:03-0400 Body height 165.6 cm Daryn Gtz MD Work Phone: [facility] 06-26-2024 12:03-0400 Body mass index (BMI) [Ratio] 19.09 kg/m2 Daryn Gtz MD Work Phone: [facility] 06-26-2024 12:03-0400 Body weight 52.34 kg Daryn Gtz MD Work Phone: [facility] 06-26-2024 12:03-0400 Diastolic blood pressure 66 mm[Hg] Daryn Gtz MD Work Phone: [facility] 06-26-2024 12:03-0400 Heart rate 87 /min Daryn Gtz MD Work Phone: [facility] 06-26-2024 12:03-0400 Respiratory rate 16 /min Daryn Gtz MD Work Phone: [facility] 06-26-2024 12:03-0400 SaO2% (BldA) [Mass fraction] 99 % Daryn Gtz MD Work Phone: [facility] 06-26-2024 12:03-0400 Systolic blood pressure 116 mm[Hg] Daryn Gtz MD Work Phone: [facility] 05-11-2024 10:56-0400 Body temperature 97.59 [degF] Daryn Gtz MD Work Phone: [facility] 05-11-2024 10:56-0400 Body weight 52.6 kg Daryn Gtz MD Work Phone: [facility] 05-11-2024 10:56-0400 Diastolic blood pressure 64 mm[Hg] Daryn Gtz MD Work Phone: [facility] 05-11-2024 10:56-0400 Heart rate 131 /min Daryn Gtz MD Work Phone: [facility] Comment on above: 132 manual 05-11-2024 10:56-0400 Respiratory rate 16 /min Daryn Gzt MD Work Phone: [facility] 05-11-2024 10:56-0400 SaO2% (BldA) [Mass fraction] 97 % Daryn Gtz MD Work Phone: [facility] 05-11-2024 10:56-0400 Systolic blood pressure 130 mm[Hg] Daryn Gtz MD Work Phone: [facility] 01-15-2024 11:57-0400 Body temperature 98.4 [degF] Kevin Stephanielemiracle CORPORATE QUALITY ASSURANCE MANAGER.WEDDING CONSULTANT Work Phone: [facility] 01-15-2024 11:57-0400 Body weight 48.4 kg Kevin Stewart CORPORATE QUALITY ASSURANCE MANAGER.WEDDING CONSULTANT Work Phone: [facility] 01-15-2024 11:57-0400 Diastolic blood pressure 72 mm[Hg] Kevin Terry CORPORATE QUALITY ASSURANCE MANAGER.WEDDING CONSULTANT Work Phone: [facility] 01-15-2024 11:57-0400 Heart rate 89 /min Kevin Pendbreanne CORPORATE QUALITY ASSURANCE MANAGER.WEDDING CONSULTANT Work Phone: [facility] 01-15-2024 11:57-0400 Respiratory rate 18 /min Kevin Stewart CORPORATE QUALITY ASSURANCE MANAGER.WEDDING CONSULTANT Work Phone: [facility] 01-15-2024 11:57-0400 SaO2% (BldA) [Mass fraction] 100 % Kevin Stewart CORPORATE QUALITY ASSURANCE MANAGER.WEDDING CONSULTANT Work Phone: [facility] 01-15-2024 11:57-0400 Systolic blood pressure 122 mm[Hg] Kevin Stewart CORPORATE QUALITY ASSURANCE MANAGER.WEDDING CONSULTANT Work Phone: [facility] 01-10-2024 22:00-0400 Body temperature 97 [degF] [facility] 01-10-2024 22:00-0400 Diastolic blood pressure 78 mm[Hg] [facility] 01-10-2024 22:00-0400 Heart rate 78 /min [facility] 01-10-2024 22:00-0400 Respiratory rate 16 /min [facility] 01-10-2024 22:00-0400 SaO2% (BldA) [Mass fraction] 100 % [facility] 01-10-2024 22:00-0400 Systolic blood pressure 119 mm[Hg] [facility] 01-10-2024 19:51-0400 Body height 167.64 cm [facility] 01-10-2024 19:51-0400 Body mass index (BMI) [Ratio] 16.2 kg/m2 [facility] 01-10-2024 19:51-0400 Body weight 45.81 kg [facility] 09-06-2023 19:48-0500 Diastolic blood pressure 53 mm[Hg] [facility] 09-06-2023 19:48-0500 Heart rate 100 /min [facility] 09-06-2023 19:48-0500 Respiratory rate 20 /min [facility] 09-06-2023 19:48-0500 SaO2% (BldA) [Mass fraction] 98 % [facility] 09-06-2023 19:48-0500 Systolic blood pressure 94 mm[Hg] [facility] 09-06-2023 17:55-0500 Body temperature 98.2 [degF] [facility] 09-06-2023 14:52-0500 Body height 167.64 cm [facility] 09-06-2023 14:52-0500 Body mass index (BMI) [Ratio] 16 kg/m2 [facility] 09-06-2023 14:52-0500 Body weight 44.99 kg [facility] 08-14-2023 17:46-0500 Body height 167.64 cm [facility] 08-14-2023 17:46-0500 Body mass index (BMI) [Ratio] 16.1 kg/m2 [facility] 08-14-2023 17:46-0500 Body temperature 97.2 [degF] [facility] 08-14-2023 17:46-0500 Body weight 45.38 kg [facility] 08-14-2023 17:46-0500 Diastolic blood pressure 78 mm[Hg] [facility] 08-14-2023 17:46-0500 Heart rate 87 /min [facility] 08-14-2023 17:46-0500 Respiratory rate 16 /min [facility] 08-14-2023 17:46-0500 SaO2% (BldA) [Mass fraction] 100 % [facility] 08-14-2023 17:46-0500 Systolic blood pressure 137 mm[Hg] [facility] 07-02-2023 17:40-0400 Body temperature 97.39 [degF] [facility] CORPORATE QUALITY ASSURANCE MANAGER.WEDDING CONSULTANT Work Phone: [facility] 07-02-2023 17:40-0400 Body weight 45.81 kg [facility] CORPORATE QUALITY ASSURANCE MANAGER.WEDDING CONSULTANT Work Phone: [facility] 07-02-2023 17:40-0400 Diastolic blood pressure 78 mm[Hg] [facility] CORPORATE QUALITY ASSURANCE MANAGER.WEDDING CONSULTANT Work Phone: [facility] 07-02-2023 17:40-0400 Heart rate 104 /min [facility] CORPORATE QUALITY ASSURANCE MANAGER.WEDDING CONSULTANT Work Phone: [facility] 07-02-2023 17:40-0400 Respiratory rate 18 /min [facility] CORPORATE QUALITY ASSURANCE MANAGER.WEDDING CONSULTANT Work Phone: [facility] 07-02-2023 17:40-0400 SaO2% (BldA) [Mass fraction] 100 % [facility] CORPORATE QUALITY ASSURANCE MANAGER.WEDDING CONSULTANT Work Phone: [facility] 07-02-2023 17:40-0400 Systolic blood pressure 118 mm[Hg] [facility] CORPORATE QUALITY ASSURANCE MANAGER.WEDDING CONSULTANT Work Phone: [facility] 05-30-2023 13:00-0400 Respiratory rate 18 /min [facility] 05-30-2023 12:07-0400 SaO2% (BldA) [Mass fraction] 99 % [facility] 05-30-2023 10:46-0400 Body mass index (BMI) [Ratio] 16.1 kg/m2 [facility] 05-30-2023 10:46-0400 Body temperature 97.3 [degF] [facility] 05-30-2023 10:46-0400 Body weight 45.4 kg [facility] 05-30-2023 10:46-0400 Diastolic blood pressure 78 mm[Hg] [facility] 05-30-2023 10:46-0400 Heart rate 67 /min [facility] 05-30-2023 10:46-0400 Systolic blood pressure 133 mm[Hg] [facility] 12-10-2022 14:43-0500 Body temperature 98.91 [degF] Kevin Terry CORPORATE QUALITY ASSURANCE MANAGER.WEDDING CONSULTANT Work Phone: [facility] 12-10-2022 14:43-0500 Body weight 48.08 kg Kevin Stewart CORPORATE QUALITY ASSURANCE MANAGER.WEDDING CONSULTANT Work Phone: [facility] 12-10-2022 14:43-0500 Diastolic blood pressure 60 mm[Hg] Kevin Stewart CORPORATE QUALITY ASSURANCE MANAGER.WEDDING CONSULTANT Work Phone: [facility] 12-10-2022 14:43-0500 Heart rate 85 /min Kevin Stewart CORPORATE QUALITY ASSURANCE MANAGER.WEDDING CONSULTANT Work Phone: [facility] 12-10-2022 14:43-0500 Respiratory rate 16 /min Kevin Stewart CORPORATE QUALITY ASSURANCE MANAGER.WEDDING CONSULTANT Work Phone: [facility] 12-10-2022 14:43-0500 SaO2% (BldA) [Mass fraction] 98 % Kevin Stewart CORPORATE QUALITY ASSURANCE MANAGER.WEDDING CONSULTANT Work Phone: [facility] 12-10-2022 14:43-0500 Systolic blood pressure 112 mm[Hg] Kevin Stewart CORPORATE QUALITY ASSURANCE MANAGER.WEDDING CONSULTANT Work Phone: [facility] 11-12-2022 08:52-0500 Body temperature 98.91 [degF] Melba Jones CORPORATE QUALITY ASSURANCE MANAGER.WEDDING CONSULTANT Work Phone: [facility] 11-12-2022 08:52-0500 Body weight 48.17 kg Melba Jones CORPORATE QUALITY ASSURANCE MANAGER.WEDDING CONSULTANT Work Phone: [facility] 11-12-2022 08:52-0500 Diastolic blood pressure 60 mm[Hg] Melba Praisler-Wood CORPORATE QUALITY ASSURANCE MANAGER.WEDDING CONSULTANT Work Phone: [facility] 11-12-2022 08:52-0500 Heart rate 118 /min Melba Praisler-Wood CORPORATE QUALITY ASSURANCE MANAGER.WEDDING CONSULTANT Work Phone: [facility] 11-12-2022 08:52-0500 Respiratory rate 18 /min Melba Praisler-Wood CORPORATE QUALITY ASSURANCE MANAGER.WEDDING CONSULTANT Work Phone: [facility] 11-12-2022 08:52-0500 SaO2% (BldA) [Mass fraction] 97 % Melba Praisler-Wood CORPORATE QUALITY ASSURANCE MANAGER.WEDDING CONSULTANT Work Phone: [facility] 11-12-2022 08:52-0500 Systolic blood pressure 110 mm[Hg] Melba Praisler-Wood CORPORATE QUALITY ASSURANCE MANAGER.WEDDING CONSULTANT Work Phone: [facility] 10-15-2022 17:51-0500 Body temperature 98.71 [degF] Skye Athy PA-C Work Phone: [facility] 10-15-2022 17:51-0500 Body weight 49.62 kg Skye Athy PA-C Work Phone: [facility] 10-15-2022 17:51-0500 Diastolic blood pressure 62 mm[Hg] Skye Athy PA-C Work Phone: [facility] 10-15-2022 17:51-0500 Heart rate 68 /min Skye Athy PA-C Work Phone: [facility] 10-15-2022 17:51-0500 Respiratory rate 16 /min Skye Athy PA-C Work Phone: [facility] 10-15-2022 17:51-0500 SaO2% (BldA) [Mass fraction] 99 % Skye Athy PA-C Work Phone: [facility] 10-15-2022 17:51-0500 Systolic blood pressure 114 mm[Hg] Skye Athy PA-C Work Phone: [facility] 06-05-2022 16:00-0400 Body temperature 98.01 [degF] Rach Alireza CORPORATE QUALITY ASSURANCE MANAGER.WEDDING CONSULTANT Work Phone: [facility] 06-05-2022 16:00-0400 Body weight 49.26 kg Rach Alireza CORPORATE QUALITY ASSURANCE MANAGER.WEDDING CONSULTANT Work Phone: [facility] 06-05-2022 16:00-0400 Diastolic blood pressure 78 mm[Hg] Rach Alireza CORPORATE QUALITY ASSURANCE MANAGER.WEDDING CONSULTANT Work Phone: [facility] 06-05-2022 16:00-0400 Heart rate 98 /min Rach Alireza CORPORATE QUALITY ASSURANCE MANAGER.WEDDING CONSULTANT Work Phone: [facility] 06-05-2022 16:00-0400 Respiratory rate 16 /min Rach Alireza CORPORATE QUALITY ASSURANCE MANAGER.WEDDING CONSULTANT Work Phone: [facility] 06-05-2022 16:00-0400 SaO2% (BldA) [Mass fraction] 99 % Rach Alireza CORPORATE QUALITY ASSURANCE MANAGER.WEDDING CONSULTANT Work Phone: [facility] 06-05-2022 16:00-0400 Systolic blood pressure 118 mm[Hg] Rach Alireza CORPORATE QUALITY ASSURANCE MANAGER.WEDDING CONSULTANT Work Phone: [facility] Encounters Encounter Date Encounter Type Care Provider Facility Start: 04-18-2025 End: 04-18-2025 Emergency department patient visit Dr. Moustapha Gtz MD Work Phone: -Emergency Department Work Phone: Start: 03-16-2025 End: 03-16-2025 Emergency department patient visit Dr. Moustapha Gtz MD Work Phone: -Emergency Department Work Phone: Start: 01-11-2025 End: 01-11-2025 Emergency department patient visit Dr. Moustapha Gtz MD Work Phone: -Emergency Department Work Phone: Start: 11-05-2024 End: 11-05-2024 Emergency department patient visit Dr. David Lomax DO -Emergency Department Work Phone: Start: 07-23-2024 End: 07-23-2024 ambulatory DARYN GTZ Facility:[place] Start: 07-23-2024 End: 07-23-2024 Patient encounter procedure Genevieve Wade APRN.CNP Work Phone: [facility] Comment on above: Lower resp. tract in fection (Primary Dx) Start: 07-20-2024 End: 07-20-2024 Emergency department patient visit Jalil Sultanane Facility:[facility] Start: 06-28-2024 End: 06-28-2024 Emergency department patient visit Jelani Scott Facility:[facility] Start: 06-27-2024 End: 07-04-2024 Telephone encounter Daryn Gtz MD Work Phone: [facility] Comment on above: Results Start: 06-26-2024 End: 06-26-2024 ambulatory DARYN GTZ Facility:[place] Start: 06-26-2024 Encounter for genera l adult medical examination without abnormal findings DARYN GTZ [facility] Start: 06-26-2024 End: 06-26-2024 Patient encounter procedure Daryn Gtz MD Work Phone: [facility] Comment on above: Encounter for medica l examination to establish care (Primary Dx); TERI (generalized anxiety disorder); Bipolar affective disorder, current episode mixed, current episode severity unspecified (HCC); Intermittent asthma without complication, unspecified asthma severity; Tobacco use Start: 06-26-2024 End: 06-26-2024 Patient encounter status Daryn Gtz MD Work Phone: [facility] Work Phone: Start: 06-26-2024 End: 06-26-2024 ambulatory DARYN GTZ Facility:[place] Start: 05-13-2024 End: 05-13-2024 Emergency department patient visit Charalyeimy Sepulveda Facility:[facility] Start: 05-11-2024 End: 05-11-2024 Patient encounter procedure Daryn Gtz MD Work Phone: [facility] Comment on above: Headache, unspecifie d headache type (Primary Dx); Injury of head, subsequent encounter; Tachycardia; Right atrial enlargement; Tobacco use; Black hairy tongue Start: 05-11-2024 End: 05-11-2024 ambulatory DARYN GTZ Facility:[place] Start: 05-10-2024 End: 05-10-2024 Emergency department patient visit No Primary Care Physician Facility:[facility] Start: 05-09-2024 End: 05-09-2024 Emergency department patient visit No Primary Care Physician Facility:[facility] Start: 05-08-2024 End: 05-08-2024 Emergency department patient visit No Primary Care Physician Facility:[facility] Start: 05-06-2024 End: 05-06-2024 Emergency department patient visit No Primary Care Physician Facility:[facility] Start: 01-15-2024 End: 01-15-2024 ambulatory DARYN GTZ Facility:[place] Start: 01-15-2024 End: 01-15-2024 Office outpatient visit 25 minutes Kevin Stewart CORPORATE QUALITY ASSURANCE MANAGER.WEDDING CONSULTANT Work Phone: [facility] Comment on above: Moderate persistent asthma with (acute) exacerbation (Primary Dx) Start: 01-10-2024 End: 01-10-2024 Emergency department patient visit [facility]-Emergency Department Work Phone: Start: 12-31-2023 End: 12-31-2023 ambulatory DARYN GTZ Facility:[place] Start: 09-06-2023 End: 09-06-2023 Emergency department patient visit [facility]-Emergency Department Work Phone: Start: 08-14-2023 End: 08-14-2023 Emergency department patient visit [facility]Emergency Department Work Phone: Start: 07-02-2023 End: 07-02-2023 Office outpatient visit 15 minutes Kevin Stewart CORPORATE QUALITY ASSURANCE MANAGER.WEDDING CONSULTANT Work Phone: [facility] Comment on above: Pharyngitis, unspeci fied etiology (Primary Dx); Viral illness Start: 05-30-2023 End: 05-30-2023 Emergency department patient visit [facility]Emergency Department Work Phone: Start: 12-10-2022 End: 12-10-2022 Patient encounter procedure Kevin Stewart APRN.WEDDING CONSULTANT Work Phone: [facility] Comment on above: Loose stools (Primar y Dx) Start: 11-12-2022 End: 11-12-2022 Patient encounter procedure Melba Jones APRN.WEDDING CONSULTANT Work Phone: [facility] Comment on above: Acute otitis externa of left ear, unspecified type (Primary Dx) Start: 10-15-2022 End: 10-15-2022 Patient encounter procedure Skye Maradiaga PA-C Work Phone: [facility] Comment on above: Diarrhea, unspecifie d type (Primary Dx) Start: 06-05-2022 End: 06-05-2022 Patient encounter procedure Rach Lay APRN.WEDDING CONSULTANT Work Phone: [facility] Comment on above: Acute cough (Primary Dx); Nasal congestion; Wheezing; Suspected COVID-19 virus infection Start: 03-18-2021 End: 03-18-2021 Subsequent hospital visit by physician [facility] Work Phone: Radiology Comment on above: Rhonchi [R09.89] Procedures Date Procedure Procedure Detail Performing Clinician Start: 05-11-2024 Ecg routine ecg w/le ast 12 lds i&r only [facility] Provider Start: 09-06-2023 Plain chest X-ray Start: 09-06-2023 SARS-CoV-2 & FLU Ant igen (Rapid) Start: 07-02-2023 STREP A MOLECULAR (POC) Kevin Stewart APRN.WEDDING CONSULTANT Work Phone: Start: 05-30-2023 Plain chest X-ray Start: 03-18-2021 Radiologic exam ches t 2 views Genevieve Wade APRN.WEDDING CONSULTANT Work Phone: Plan of Treatment Date Care Activity Detail Author Start: 06-26-2025 Annual PCP Team Alodize Machine Helper donte Disease Visit Annual PCP Team Chronic Disease Visit [facility] Start: 06-26-2025 Covid-19 Vaccine ( season) Covid-19 Vaccine () [facility] Comment on above: Postponed from 06/04 (Declined at this time) Start: 06-26-2025 Hepatitis C screening Hepatitis C Sc rex [facility] Comment on above: Postponed from 06/18 (Declined at this time) Start: 06-26-2025 HIV screening HIV Screening [facility] Comment on above: Postponed from 06/18 (Declined at this time) Start: 06-26-2025 Pneumococcal vaccination Pneum ococcal Vaccine (1 of 2 - PCV) [facility] Comment on above: Postponed from 06/18 (Declined at this time) Start: 06-26-2025 Urine microalbumin profile DTaP,Tdap,Td Vaccine (7 - Td or Tdap) [facility] Comment on above: Postponed from 09/14 (Declined at this time) Start: 05-11-2025 Annual PCP Team [employer] Machine Helper donte Disease Visit Annual PCP Team Chronic Disease Visit [facility] Start: 04-18-2025 [facility] Start: 04-02-2025 Influenza vaccination Influenza Vacc ine (#1) [facility] Comment on above: Postponed from 06/04 (Declined at this time) Start: 03-16-2025 [facility] Start: 01-11-2025 [facility] Start: 12-25-2024 End: 12-25-2024 Patient encounter procedure 12/25/2024 2:40 PM EDT Office Visit [facility] [address] [place] [address] PodDenise jurado APRN.WEDDING CONSULTANT [address] [place], [place] [id number] 6 month follow up [facility] Comment on above: 6 month follow up Start: 11-05-2024 [facility] Start: 09-26-2024 End: 12-26-2024 25-hydroxyvitamin D3 [Mass/volume] in Serum or Plasma VITAMIN D 25 HYDROXY Lab Routine Vitamin D deficiency Expected: 09/26/2024, Expires: 12/26/2024 [facility] Work Phone: Comment on above: Expected: 09/26/2024 , Expires: 12/26/2024 Start: 07-31-2024 End: 07-31-2024 ambulatory 07/31/2024 1:30 PM EDT Procedure [facility] [address] [place] [address] Wstr, Pulm Lab [facility] [address] [place] [address] [facility] Comment on above: ASTHMA Start: 07-31-2024 End: 07-31-2024 Patient encounter procedure 07/31/2024 12:20 PM EDT Office Visit [facility] [address] [facility] [place] [address] Daryn Gtz MD [address] [place] [address] express care follow-up [facility] Comment on above: express care follow- up Start: 06-28-2024 End: 06-28-2024 ambulatory 06/28/2024 1:45 PM EDT Procedure [facility] [address] [place] [address] Wstr, Pulm Lab [facility] [address] [place] [address] Intermittent asthma without complication, unspecified asthma severity [J45.20] [facility] Comment on above: Intermittent asthma without complication, unspecified asthma severity [J45.20] Start: 06-26-2024 End: 09-25-2024 25-hydroxyvitamin D3 [Mass/volume] in Serum or Plasma [facility] Comment on above: Expected: 06/26/2024 , Expires: 09/25/2024 Start: 06-26-2024 End: 09-25-2024 Cobalamin (Vitamin B12) [Mass/volume] in Serum or Plasma [facility] Comment on above: Expected: 06/26/2024 , Expires: 09/25/2024 Start: 06-26-2024 End: 09-25-2024 Comprehensive metabolic 2000 panel - Serum or Plasma [facility] Comment on above: Expected: 06/26/2024 , Expires: 09/25/2024 Start: 06-26-2024 End: 09-25-2024 LIPID PANEL, NONFASTING [facility] Comment on above: Expected: 06/26/2024 , Expires: 09/25/2024 Start: 06-26-2024 End: 09-25-2024 Thyrotropin [Units/volume] in Serum or Plasma [facility] Comment on above: Expected: 06/26/2024 , Expires: 09/25/2024 Start: 06-26-2024 End: 06-26-2024 Patient encounter procedure 06/26/2024 12:20 PM EDT Office Visit Family [facility] [address] [place], [place] [id number] Daryn Gtz MD [address] [place] [address] Establish Care Visit [facility] Comment on above: Establish Care Visit Start: 06-04-2024 Influenza vaccination C [facility] Start: 01-10-2024 [facility] Start: 10-04-2023 Behavioral Health Screening Behavioral Health Screening [facility] Start: 09-06-2023 [facility] Start: 08-14-2023 [facility] Start: 07-02-2023 End: 07-16-2023 Influenza virus A and B RNA and SARS-CoV-2 (COVID-19) N gene panel - Respiratory specimen by REI with probe detection [facility] Work Phone: Comment on above: Expected: 07/02/2023 , Expires: 07/16/2023 Start: 06-04-2023 Covid-19 Vaccine () Covid-19 Vaccine () [facility] Start: 06-04-2023 Influenza vaccination Influenza Vacc ine (#1) [facility] Start: 05-30-2023 [facility] Start: 10-15-2022 End: 10-29-2022 Influenza virus A and B RNA and SARS-CoV-2 (COVID-19) N gene panel - Respiratory specimen by REI with probe detection COVID WITH FLUA+B, ROUTINE Microbiology Routine Diarrhea, unspecified type Expected: 10/15/2022, Expires: 10/29/2022 [facility] Work Phone: Comment on above: Expected: 10/15/2022 , Expires: 10/29/2022 Start: 10-04-2022 DEPRESSION ASSESSMENT DEPRESSION ASS ESSMENT [facility] Start: 09-14-2022 Urine microalbumin profile DTaP,Tdap,Td Vaccine (7 - Td or Tdap) [facility] Start: 06-05-2022 End: 06-19-2022 SARS-CoV-2 (COVID-19) RNA [Presence] in Respiratory specimen by REI with probe detection 2019 CORONAVIRUS Microbiology Routine Acute cough Nasal congestion Suspected COVID-19 virus infection Expected: 06/05/2022, Expires: 06/19/2022 [facility] Work Phone: Comment on above: Expected: 06/05/2022 , Expires: 06/19/2022 Start: 06-04-2022 Influenza vaccination INFLUENZA (#1) [facility] Start: 04-30-2021 Urine microalbumin profile [facility] Start: 2013 ANNUAL PCP TEAM 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 Start: 2013 Hepatitis C screening Hepatitis C [facility] Start: 2013 HIV SCREENING HIV SCREENING [facility] Start: 2013 HIV screening HIV Screening [facility] Start: 2013 SPIROMETRY SPIROMETRY [facility] Start: 2009 PEDS TO ADULT TRANSI TION ANNUAL ASSESSMENT PEDS TO ADULT TRANSITION ANNUAL ASSESSMENT [facility] Start: 2007 Adult depression screening assessment DEPRESSION SCREENING [facility] Start: 2007 PEDS TO ADULT TRANSI TION INITIAL DISCUSSION PEDS TO ADULT TRANSITION INITIAL DISCUSSION [facility] Start: 2006 HPV VACCINE (1 - Mal e 2-dose series) HPV VACCINE (1 - Male 2-dose series) [facility] Start: 2001 PNEUMOCOCCAL (1 - PCV) PNEUMOCOCCAL (1 - PCV) [facility] Start: 2001 Pneumococcal vaccination [facility] Start: 1995 COVID-19 VACCINE (#1) COVID-19 VACCI NE (#1) [facility] ECG COMPLETE [facility] Work Phone: Comment on above: Ordered: 05/11/2024 Patient Education [facility] Work Phone: Patient referral [facility] Work Phone: End: 07-26-2025 SPIROMETRY - BASELINE AND POST DILATOR SPIROMETRY - BASELINE AND POST DILATOR PFT Routine Intermittent asthma without complication, unspecified asthma severity 1 Occurrences starting 06/26/2024 until 07/26/2025 [facility] Work Phone: Comment on above: 1 Occurrences starti ng 06/26/2024 until 07/26/2025 Immunizations Immunization Date Immunization Notes Care Provider Niya jean-baptiste 09-14-2012 influenza virus vaccine, unspecified formulation Rach Lay APRN.[employer] Work Phone: [facility] 09-14-2012 TD(adult) unspecifie d formulation Daryn Gtz MD Work Phone: [facility] 04-30-2011 Meningococcal, MCV4, unspecified conjugate formulation(groups A, C, Y and W-135) Rach Lay APRN.[employer] Work Phone: [facility] Work Phone: 04-30-2011 tetanus toxoid, reduced diphtheria toxoid, and acellular pertussis vaccine, adsorbed Rach Lay APRN.[employer] Work Phone: [facility] Work Phone: 01-27-2009 tetanus and diphther ia toxoids, adsorbed, preservative free, for adult use (5 Lf of tetanus toxoid and 2 Lf of diphtheria toxoid) Daryn Gtz MD Work Phone: [facility] 03-30-2001 diphtheria, tetanus toxoids and acellular pertussis vaccine Rach Alireza CORPORATE QUALITY ASSURANCE MANAGER.[facility] Work Phone: [facility] Work Phone: 03-30-2001 poliovirus vaccine, inactivated Rach Alireza CORPORATE QUALITY ASSURANCE MANAGER.[facility] Work Phone: [facility] Work Phone: 10-26-2000 diphtheria, tetanus toxoids and acellular pertussis vaccine Rach Alireza CORPORATE QUALITY ASSURANCE MANAGER.[facility] Work Phone: [facility] Work Phone: 10-26-2000 measles, mumps and rubella virus vaccine Rach Alireza CORPORATE QUALITY ASSURANCE MANAGER.[facility] Work Phone: [facility] Work Phone: 10-26-2000 poliovirus vaccine, inactivated Rach Alireza CORPORATE QUALITY ASSURANCE MANAGER.[facility] Work Phone: [facility] Work Phone: 11-23-1996 haemophilus influenz ae type b vaccine, HbOC conjugate Rach Alireza CORPORATE QUALITY ASSURANCE MANAGER.[facility] Work Phone: [facility] Work Phone: 11-23-1996 measles, mumps and rubella virus vaccine Rach Alireza CORPORATE QUALITY ASSURANCE MANAGER.[facility] Work Phone: [facility] Work Phone: 06-19-1996 varicella virus vaccine Rach Alireza CORPORATE QUALITY ASSURANCE MANAGER.[facility] Work Phone: [facility] Work Phone: 1995 diphtheria, tetanus toxoids and pertussis vaccine Rach Alireza CORPORATE QUALITY ASSURANCE MANAGER.[facility] Work Phone: [facility] Work Phone: 1995 haemophilus influenz ae type b vaccine, HbOC conjugate Rach Alireza CORPORATE QUALITY ASSURANCE MANAGER.[facility] Work Phone: [facility] Work Phone: 1995 hepatitis B vaccine, pediatric or pediatric/adolescent dosage Rach Alireza CORPORATE QUALITY ASSURANCE MANAGER.[facility] Work Phone: [facility] Work Phone: 1995 diphtheria, tetanus toxoids and pertussis vaccine Rach Alireza CORPORATE QUALITY ASSURANCE MANAGER.[employer] Work Phone: [facility] Work Phone: 1995 haemophilus influenz ae type b vaccine, HbOC conjugate Rach Alireza CORPORATE QUALITY ASSURANCE MANAGER.[employer] Work Phone: [facility] Work Phone: 1995 trivalent poliovirus vaccine, live, oral Rach Alireza CORPORATE QUALITY ASSURANCE MANAGER.[facility] Work Phone: [facility] Work Phone: 1995 diphtheria, tetanus toxoids and pertussis vaccine Rach Alireza CORPORATE QUALITY ASSURANCE MANAGER.[facility] Work Phone: [facility] Work Phone: 1995 haemophilus influenz ae type b vaccine, HbOC conjugate Rach Alireza CORPORATE QUALITY ASSURANCE MANAGER.[facility] Work Phone: [facility] Work Phone: 1995 trivalent poliovirus vaccine, live, oral Rach Alireza CORPORATE QUALITY ASSURANCE MANAGER.[facility] Work Phone: [facility] Work Phone: 1995 hepatitis B vaccine, pediatric or pediatric/adolescent dosage Rach Alireza CORPORATE QUALITY ASSURANCE MANAGER.[facility] Work Phone: [facility] Work Phone: 1995 hepatitis B vaccine, pediatric or pediatric/adolescent dosage Rach Alireza CORPORATE QUALITY ASSURANCE MANAGER.[facility] Work Phone: [facility] Work Phone: Payers Date Payer Category Payer Self-pay [id number] 2023 Unknown [employer] PPO [id number] 2023-Present [phone] [address] [place] [address] PPO [id number] 2023 Unknown [id number] 2022 Medicaid [id number] 2019 Medicaid [id number] 2016 Unknown [id number] Unknown 0 [id number] Unknown [id number] Unknown [id number] Unknown [id number] Unknown [id number] Unknown [id number] Unknown [id number] Unknown [id number] Unknown [id number] Unknown [id number] Unknown [id number] Unknown [id number] Social History Date Type Detail Facility Start: 07-12-2015 End: 04-18-2025 Tobacco smoking status NHIS Smokes tobacco daily [facility] Start: 06-26-2008 History of tobacco use Cigarette Smo ker [facility] Start: 07-12-2015 End: 05-11-2024 Cigarettes smoked current (pack per day) - Reported 0.5 [facility] Start: 07-12-2015 End: 06-26-2024 Tobacco use and exposure Smokeless tobacco non-user [facility] Start: 03-18-2021 End: 06-05-2022 Alcohol intake Not Asked [facility] Start: 1995 Sex Assigned At Not on file [facility] Start: 10-15-2022 End: 07-23-2024 Alcohol intake Lifetime non-drinker (finding) [facility] Start: 09-17-2022 Tobacco Comment [facility] Start: 07-02-2023 End: 05-11-2024 Tobacco use panel [facility] National Score (1-10 0), lower number is lower risk Not on file [facility] Start: 08-14-2023 End: 01-10-2024 Tobacco smoking status NHIS Unknown if ever smoked [facility] Start: 10-19-2020 None [facility] Start: 10-19-2020 With Family [facility] Start: 02-22-2021 Cigarettes [facility] Start: 1995 Sex Assigned At Male [facility] Start: 02-16-2021 End: 03-18-2021 Exposure to SARS-CoV-2 (event) Not sure [facility] Start: 01-11-2025 Sex Male (finding) [facility] Mental Status Date Assessment Result Facility 04-18-2025 Cognitive function Voice/Name [facility] Work Phone: 09-06-2023 Cognitive function Level Of Cons ciousness Awake;Alert;Appropriate;Follow s Commands [facility] Work Phone: 05-30-2023 Cognitive function Voice/Name [facility] Work Phone: Clinical Notes 03-18-2021 to 04-18-2025 Note Date & Type Note Facility 04-18-2025 Discharge summary [facility] 03-16-2025 Discharge summary [facility] 03-16-2025 Discharge summary Note Date/Time March 16, 2025 10:47pm [facility] Medical Records Department [address] [place] [address] Emergency Department Summary 03/16/25 MR#: [id number] Acct: [id number] Name: REYNALDO ADDISON III Rep #:[id number] : 1995 29 From: Chung Vallejo MD PCP: Dr. Moustapha Gtz MD Status :REG ER Location: ED HPI History of Present Illness Chief Complaint: Burn Informant: patient Narrative Narrative: Patient states he works at [employer] and he sustained a small burn to his rightmiddle finger from gale grease that splashed onto his finger. He states this occurred about a week ago. He states initially there was some yellow-green layer on the top, and today he accidentally scraped it off and was concerned andwanted to make sure it is not getting infected. He does not have any pain or significant discharge. [facility] Medical History Anxiety Tobacco abuse Asthma Home Medications ?Medication ?Instructions ?Recorded ?Last Taken ?Type NK 06/28/24 Unknown History Allergy/AdvReac Type Severity Reaction Status Date / Time cat dander (cats) Allergy Intermediate Inflammation Verified 03/16/25 21:53 of lung egg Allergy Rash Verified 03/16/25 21:53 Penicillins Allergy Rash Verified 03/16/25 21:53 Family History Father Heart disease Social History household members: significant other housing: apartment Smoking Status: Current every day smoker tobacco type: cigarettes ROS ROS ED Constitutional Constitutional ED: Denies chills or fever(s) Musculoskeletal Musculoskeletal: Reports extremity pain; Denies neck pain Integumentary Reports wounds; Denies Abrasions or rash Neurologic Neurologic: Denies paresthesias or weakness EXAM Physical Exam Const Vital Signs: 03/16/25 21:52 Temperature 98.7 F Temperature Source Oral Pulse Rate 77 Respiratory Rate 16 Blood Pressure 116/67 Blood Pressure Mean 83 Pulse Ox 100 Oxygen Delivery Method Room Air Positive well nourished and well developed General Appearance ED: well developed and NAD Neck full ROM and supple Back/Spine normal ROM and normal to inspection Neuro oriented x3, no focal motor deficits and no sensory deficits noted Sensorium / Orientation: alert Psych mental status grossly normal and thought process normal Skin Skin Narrative: Small subcentimeter healing burn dorsal right middle finger no tenderness, no lymphangitis, no sign of infection. Rashes: no rashes MDM MDM MDM Narrative Medical decision making narrative: Patient is reassured. This appears partial-thickness, there is granulation tissue within, there is no sign of infection, he has a Band-Aid on it and I am having nursing clean it and place a new one with bacitracin he was instructed tocontinue doing the same and keep it protected at work. Discharge Plan Triage Chief Complaint: Burn ED Provider: Chung Vallejo Dx/Rx/DC Orders Clinical Impression: Partial thickness burn of right middle finger, Encounter for post-traumatic wound check Instructions: ED Burn Wound Check No Infect Prescriptions: No Action NK Stand Alone Forms: Work Status Form Primary Care Provider: Moustapha Gtz Referrals: [facility] [Group of Physicians] - As Needed Print Language: Taiwanese Disposition Disposition: Home, Self Care What to do if you have Problems For any increased pain, shortness of breath, bleeding, nausea or vomiting, chestpain, or any unexpected problems, contact your Primary Care Provider. Call [facility] ([phone]) or report to the closest Emergency Room. Call 911 if necessary. 03/16/252246 <Electronically signed by Chung Vallejo MD> Cosigner Signature (if applicable): CC: Dr. Moustapha Gtz MD ~ Signed [facility] Work Phone: 1(939) 737-828004-10-2025 Discharge summary [facility] Medical Records Department [address] [place] [address] Emergency Department Summary 01/11/25 MR#: [id number] Acct: [id number] Name: AZAELREYNALDOKARIS GARCIA III Rep #:[id number] : 1995 29 From: Charla Ruffin PCP: Dr. Moustapha Gtz MD Status :REG ER Location: ED HPI HPI - Psych History of Present Illness Chief Complaint: Anxiety Informant: patient Narrative Narrative: Patient is a 29-year-old male with history of tobacco use and anxiety follows with a counselor and psychiatrist presenting with panic attack. Patient states he was at work when he developed a panic attack. States he felt like he was having a heart attack. He states since being here he is calm down and is feeling much better. He thinks it was triggered by him not having enough sleep lately as he is been working a lot (works 10 to 12-hour shifts at [employer] andit has been stressful). States he has appointment to see a psychiatrist on the . He has been compliant with his BuSpar and does have a prescription for asneeded Xanax as needed for anxiety. Denies any HI or SI. States at this timehe feels safe going home. No other complaints or concerns reported. Feels thathe is been in his normal state of health. Denies associated fever, chills, shortness of breath, nausea, vomiting or diarrhea. [facility] Medical History Anxiety Tobacco abuse Asthma Home Medications ?Medication ?Instructions ?Recorded ?Last Taken ?Type NK 06/28/24 Unknown History Allergy/AdvReac Type Severity Reaction Status Date / Time cat dander (cats) Allergy Intermediate Inflammation Verified 01/11/25 17:26 of lung egg Allergy Rash Verified 01/11/25 17:26 Penicillins Allergy Rash Verified 01/11/25 17:26 Family History Father Heart disease Social History household members: significant other housing: apartment Smoking Status: Current every day smoker tobacco type: cigarettes ROS ROS ED Constitutional Constitutional ED: Denies chills or fever(s) Cardiovascular Cardiovascular: Reports racing heartbeat; Denies chest pain Respiratory/Chest Respiratory/Chest: Denies cough or dyspnea Gastrointestinal Gastrointestinal: Denies abdominal pain, nausea or vomiting Musculoskeletal Musculoskeletal: Denies arthralgias or myalgias Neurologic Neurologic: Denies weakness Psychiatric Psychiatric: Reports anxiety; Denies suicidal ideation or suicidal thoughts EXAM Physical Exam Const Vital Signs: 01/11/25 17:26 Temperature 97 F L Temperature Source Temporal Pulse Rate 83 Respiratory Rate 18 Blood Pressure 127/73 H Blood Pressure Mean 91 Pulse Ox 100 Oxygen Delivery Method Room Air Positive well nourished and well developed Constitutional Narrative: Thin General Appearance ED: well developed and NAD; Negative for pallor HEENT Reports moist mucous membranes HEENT Narrative: Edentulous Eyes PERRL and EOMs intact bilaterally Neck supple Resp normal respiratory effort and clear to auscultation bilaterally Cardio no murmurs Cardio Narrative: 2+ radial pulses present Rate: regular rate Rhythm: regular rhythm GI non-tender and non-distended Extremity normal to inspection Neuro oriented x3 Sensorium / Orientation: alert Motor Exam: muscle tone normal throughout; Negative for general weakness Psych mental status grossly normal, thought process normal, cooperative, affect normaland speech normal Thought Content: normal thought content and No suicidality Memory / Cognition: memory grossly intact Insight: insight good Judgement: judgement good Skin General Skin Exam: Negative for pallor Rashes: no rashes MDM MDM MDM Narrative Medical decision making narrative: Patient evaluated for anxiety attack. Since being the ER he is calm down his feeling much better. Vital signs are normal and low suspicion for acute cardiopulmonary process. Does have a history of anxiety. Is established with the counseling center and a psychiatrist. Is comfortable being dischargedhome at this time. Denies any HI or SI I feel like he is a safe candidate for outpatient follow-up.Is offered a prescription for hydroxyzine but states he will just talk to his psychiatrist about this. Does have as needed Xanax as needed. Given return precautions. Discharged home in stable condition. Discharge Plan Triage Chief Complaint: Anxiety ED Provider: Charla Sepulveda Dx/Rx/DC Orders Clinical Impression: Anxiety attack Instructions: ED Panic Attack Prescriptions: No Action NK Stand Alone Forms: ED Work / School Excuse Primary Care Provider: Moustapha Gtz Referrals: Moustapha Gtz MD [Primary Care Provider] - Activity Restrictions/Additional Instructions: Please continue to follow-up outpatient with behavioral health and your psychiatrist. Return if youhave a progression worsening your symptoms or further concerns. Print Language: Taiwanese Disposition Disposition: Home, Self Care What to do if you have Problems For any increased pain, shortness of breath, bleeding, nausea or vomiting, chestpain, or any unexpected problems, contact your Primary Care Provider. Call [facility] ([phone]) or report tothe closest Emergency Room. Call 911 if necessary. 01/11/251912 Cosigner Signature (if applicable): CC: Dr. Moustapha Gtz MD ~ Signed [facility]04-10-2025 Discharge summary Author Charla Sepulveda [facility] Note Date/Time January 11, 2025 7:1 3pm [facility] Medical Records Department [address] [place] [address] Emergency Department Summary 01/11/25 MR#: [id number] Acct: [id number] Name: REYNALDO ADDISON III Rep #:[id number] : 1995 29 From: Charla Ruffin PCP: Dr. Moustapha Gtz MD Status :REG ER Location: ED HPI HPI - Psych History of Present Illness Chief Complaint: Anxiety Informant: patient Narrative Narrative: Patient is a 29-year-old male with history of tobacco use and anxiety follows with a counselor and psychiatrist presenting with panic attack. Patient states he was at work when he developed a panic attack. States he felt like he was having a heart attack. He states since being here he is calm down and is feeling much better. He thinks it was triggered by him not having enough sleep lately as he is been working a lot (works 10 to 12-hour shifts at [employer] andit has been stressful). States he has appointment to see a psychiatrist on the . He has been compliant with his BuSpar and does have a prescription for asneeded Xanax as needed for anxiety. Denies any HI or SI. States at this time he feels safe going home. No other complaints or concerns reported. Feels thathe is been in his normal state of health. Denies associated fever, chills, shortness of breath, nausea, vomiting or diarrhea. [facility] Medical History Anxiety Tobacco abuse Asthma Home Medications ?Medication ?Instructions ?Recorded ?Last Taken ?Type NK 06/28/24 Unknown History Allergy/AdvReac Type Severity Reaction Status Date / Time cat dander (cats) Allergy Intermediate Inflammation Verified 01/11/25 17:26 of lung egg Allergy Rash Verified 01/11/25 17:26 Penicillins Allergy Rash Verified 01/11/25 17:26 Family History Father Heart disease Social History household members: significant other housing: apartment Smoking Status: Current every day smoker tobacco type: cigarettes ROS ROS ED Constitutional Constitutional ED: Denies chills or fever(s) Cardiovascular Cardiovascular: Reports racing heartbeat; Denies chest pain Respiratory/Chest Respiratory/Chest: Denies cough or dyspnea Gastrointestinal Gastrointestinal: Denies abdominal pain, nausea or vomiting Musculoskeletal Musculoskeletal: Denies arthralgias or myalgias Neurologic Neurologic: Denies weakness Psychiatric Psychiatric: Reports anxiety; Denies suicidal ideation or suicidal thoughts EXAM Physical Exam Const Vital Signs: 01/11/25 17:26 Temperature 97 F L Temperature Source Temporal Pulse Rate 83 Respiratory Rate 18 Blood Pressure 127/73 H Blood Pressure Mean 91 Pulse Ox 100 Oxygen Delivery Method Room Air Positive well nourished and well developed Constitutional Narrative: Thin General Appearance ED: well developed and NAD; Negative for pallor HEENT Reports moist mucous membranes HEENT Narrative: Edentulous Eyes PERRL and EOMs intact bilaterally Neck supple Resp normal respiratory effort and clear to auscultation bilaterally Cardio no murmurs Cardio Narrative: 2+ radial pulses present Rate: regular rate Rhythm: regular rhythm GI non-tender and non-distended Extremity normal to inspection Neuro oriented x3 Sensorium / Orientation: alert Motor Exam: muscle tone normal throughout; Negative for general weakness Psych mental status grossly normal, thought process normal, cooperative, affect normaland speech normal Thought Content: normal thought content and No suicidality Memory / Cognition: memory grossly intact Insight: insight good Judgement: judgement good Skin General Skin Exam: Negative for pallor Rashes: no rashes MDM MDM MDM Narrative Medical decision making narrative: Patient evaluated for anxiety attack. Since being the ER he is calm down his feeling much better. Vital signs are normal and low suspicion for acute cardiopulmonary process. Does have a history of anxiety. Is established with the counseling center and a psychiatrist. Is comfortable being discharged home at this time. Denies any HI or SI I feel like he is a safe candidate for outpatient follow-up. Is offered a prescription for hydroxyzine but states he will just talk to his psychiatrist about this. Does have as needed Xanax as needed. Given return precautions. Discharged home in stable condition. Discharge Plan Triage Chief Complaint: Anxiety ED Provider: Charla Sepulveda Dx/Rx/DC Orders Clinical Impression: Anxiety attack Instructions: ED Panic Attack Prescriptions: No Action NK Stand Alone Forms: ED Work / School Excuse Primary Care Provider: Moustapha Gtz Referrals: Moustapha Gtz MD [Primary Care Provider] - Activity Restrictions/Additional Instructions: Please continue to follow-up outpatient with behavioral health and your psychiatrist. Return if you have a progression worsening your symptoms or further concerns. Print Language: Taiwanese Disposition Disposition: Home, Self Care What to do if you have Problems For any increased pain, shortness of breath, bleeding, nausea or vomiting, chestpain, or any unexpected problems, contact your Primary Care Provider. Call [facility] ([phone]) or report to the closest Emergency Room. Call 911 if necessary. 01/11/251912 <Electronically signed by Charla Sepulveda DO> Cosigner Signature (if applicable): CC: Dr. Moustapha Gtz MD ~ Signed [facility] Work Phone: 1(564) 616-307910-20-2024 NoteHNO ID: [id number] Author: GENEVIEVE WADE APRN.[employer] Service: ? Author Type: Nurse Practitioner Type: Progress Notes Filed: 07/23/2024 10:23 Note Text: Subjective HPI HPI Reynaldo Addison is a 29 year old male [...] DOXYCYCLINE MONOHYDRATE 100 MG TABLET Genevieve Wade APRN.[facility]10-20-2024 History of Present illness Narrative* Genevieve Wade APRN.[employer] - 07/23/2024 10:06 AM EDT Subjective HPI HPI Reynaldo Addison is a 29 year old male who presents today for CC of cough, congestion. This started 4 days ago. Has tried otc medication for relief. Symptoms are worsened by nothing. Risk factorssmoker hx of asthma. .Patient presents with: Cough: [...] DOXYCYCLINE MONOHYDRATE 100 MG TABLET Genevieve Wade APRN.[employer] [facility] Telephone encounter Note * Telephone Encounter - Daryn Gtz MD - 07/04/2024 10:18 AM EDT Rx sent. [facility]10-01-2024 Miscellaneous Notes* Telephone Encounter - Daryn Gtz MD - 07/04/2024 10:18 AM EDT Rx sent. * Telephone Encounter - Amira Ayala LPN - 07/04/2024 9:58 AM EDT Patient returned call and went over results, notes from Dr Gtz with understanding. Aware Vitamin D rx sent to pharmacy. Patient wants to take the supplement, asking for rx to be sent to [facility] pharmacy. Pending rx needs completed. * Telephone Encounter - Mariely Stein LPN - 06/29/2024 7:56 AM EDT Letter sent to patient requesting call back and to update contact information. Mariely Stein LPN * Telephone Encounter - Oliva Nunez RN - 06/27/2024 9:24 AM EDT Tried calling the Pts phone number and get this reply, the number you dialed has been changed, disconnected, or is no longer in service. Called and left a voicemail on Pts significant other and mothers phone numbers for the Patient to call back and ask for a nurse to receive the providers message. Oliva Nunez RN * Telephone Encounter - Daryn Gtz MD - 06/27/2024 9:19 AM EDT Vitamin D level severely low. Recommend 50,000 units of vitamin D weekly x 12 weeks and recheck in 3 months. Vitamin B 12 is also low. We can treat this with daily vitamin B12 supplement 1,000 mg OTC vs a monthly injection. Let me know which he would prefer. His other labs are normal. [facility] Telephone encounter Note * Telephone Encounter - Amira Ayala LPN - 07/04/2024 9:58 AM EDT Patient returned call and went over results, notes from Dr Gtz with understanding. Aware Vitamin D rx sent to pharmacy. Patient wants to take the supplement, asking for rx to be sent to [facility] pharmacy. Pending rx needs completed. [facility]09-26-2024 Telephone encounter Note* Telephone Encounter - Mariely Stein LPN - 06/29/2024 7:56 AM EDT Letter sent to patient requesting call back and to update contact information. Mariely Stein LPN [facility]09-24-2024 Telephone encounter Note* Telephone Encounter - Oliva Nunez RN - 06/27/2024 9:24 AM EDT Tried calling the Pts phone number and get this reply, the number you dialed has been changed, disconnected, or is no longer in service. Called and left a voicemail on Pts significant other and mothers phone numbers for the Patient to call back and ask for a nurse to receive the providers message. Oliva Nunez RN [facility]09-24-2024 Telephone encounter Note* Telephone Encounter - Daryn Gtz MD - 06/27/2024 9:19 AM EDT Vitamin D level severely low. Recommend 50,000 units of vitamin D weekly x 12 weeks and recheck in 3 months. Vitamin B 12 is also low. We can treat this with daily vitamin B12 supplement 1,000 mg OTC vs a monthly injection. Let me know which he would prefer. His other labs are normal. T [facility]09-23-2024 NoteHNO ID: [id number] Author: DARYN GTZ MD Service: ? Author Type: Physician Type: Progress Notes Filed: 06/26/2024 14:52 Note Text: Chief Complaint Patient presents with: Establish Care HPI Reynaldo Addison is a 29 year old male who presents here today for Above Complaints. Accompanied today by mother. 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 Tai. We discussed possible tension headache at last OV on 05/11 and patient returned to [facility] ER on 05/13 for same complaint with [...] No current facility-administered medicat (more content not included)...[facility]09-23-2024 History of Present illness Narrative* Daryn Gtz MD - 06/26/2024 12:19 PM EDT Chief Complaint Patient presents with: Establish Care HPI Reynaldo Addison is a 29 year old male who presents here today for Above Complaints. Accompanied today by mother. 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 Tai. We discussed possible tension headache at last OV on 05/11 and patient returned to [facility] ER on 05/13 forsame complaint with negative CT brain. Did follow [...] office with last OV in 2018. Patient onlyhas albuterol inhaler at home which he needs [...] have let yourself or your family down Notat all Not at all Trouble concentrating on [...] made it for you to do your work,take care of things at home, or get [...] needed for wheezing/shortness of breath. Use over 5- 15minutes. (Patient not taking: Reported on07/02/2023) albuterol HFA (PROAIR HFA) 90 mcg/actuation inhaler [...] Tdap) due on 09/14/2022 Covid-19 Vaccine( - 2023- season) Never done Influenza Vaccine(1) due on [...] tobacco. Daryn Gtz MD documented in this encounterC[facility]-2024 NoteHNO ID: [id number] Author: DARYN GTZ MD Service: ? Author Type: Physician Type: Progress Notes Filed: 05/11/2024 12:35 Note Text: Chief Complaint Patient presents with: ER F/U: Post concussion- looking for 2nd opinion HPI Reynaldo Addison is a 28 year old male who presents here today for new limited ER follow up. Accompanied today by his mother Lakeshia. Patient evaluated at [facility] ED on 05/06, 05/08, 05/09, and 05/10 [...] and now noted head trauma. Without LOC, dominican CT head rule did not indicate imaging. [...] does have an appointment with neurology in [place] in 5 days. Past medical history, appointments, [...] or gallops, Positive fi (more content not included)...[facility]08-08-2024 History of Present illness Narrative* Daryn Gtz MD - 05/11/2024 11:04 AM EDT Chief Complaint Patient presents with: ER F/U: Post concussion- looking for 2nd opinion HPI Reynaldo Michael Azael is a 28 year old male who presents here today for new limited ER follow up. Accompanied today by his mother Lakeshia. Patient evaluated at [facility] ED on 05/06, 05/08, 05/09, and 05/10 for complaint of headache with changing history. Initially reported fatigue and headache and was concerned for COVID infection, but rapid testingwas negative. Denied history of trauma or migraine on 05/06. Worsening headache on 05/08 and denied trauma. Given IV fluids, Toradol, Reglan and Bendryl which significantly improved symptoms and was disch arged home. On 05/09 he complained of left sided parietal headache and now noted head trauma. WithoutLO, dominican CT head rule did not indicate imaging. [...] but this time was located over his forehead.Described as pressure sensation, up to 5/10, without [...] does have an appointment with neurology in [place] in 5 days. Past medical history, appointments, [...] needed for wheezing/shortness of breath. Use over 5- 15minutes. (Patient not taking: Reported on07/02/2023) albuterol HFA (PROAIR HFA) 90 mcg/actuation inhaler [...] which included preparing to see the patient, [id number] patient care, completing clinical documentation, obtaining and/or reviewing separately obtained history, performing a medically appropriate examination, counseling and educating the pat ient/family/caregiver, ordering medications, tests, or procedures, independently interpreting results (not separately reported), and communicating results to the patient/family/caregiver. Daryn Gtz MD documented in this encounterC[facility]04-13-2024 NoteHNO ID: [id number] Author: KEVIN STEWART APRN.WEDDING CONSULTANT Service: ? Author Type: Nurse Practitioner Type: [...] for any new, worsenin (more content not included)...[facility]04-13-2024 History of Present illness Narrative* Keivn Stewart APRN.WEDDING CONSULTANT - 01/15/2024 12:04 PM EDT Subjective HPI Nontoxic-appearing male presents urgent care chief complaint asthma exacerbation. Duration of symptoms 6 days. Associated symptoms cough shortness of breath at times. Was seen in the ED on Wednesday. Diagnosed with asthma. Sent home with inhaler no steroids. Presents today for evaluation. States coughis bothersome if he uses his rescue inhaler this does improve for short amount of time. Was seen pulmonology for severe persistent asthma has not seen them in quite some time. Denies any productive cough hemoptysis fever body aches chills nausea vomiting abdominal pain or change in bowel or bladderhabits. Denies any recent hospitalizations due to asthma. [...] needed for wheezing/shortness of breath. Use over 5- 15minutes. (Patient not taking: Reported on07/02/2023) albuterol HFA (PROAIR HFA) 90 mcg/actuation inhaler [...] No respiratory distress noted. Hemodynamically stable. Diagnosis asthmaexacerbation. Will be placed on antihistamines and prednisone. [...] of care. This note was generated using Kag[employer] software. It may contain errors in wording, punctuation, or spelling. Kevin Stewart APRN.HANDY documented in this encounterC[facility]03-29-2024 NoteHNO ID: [id number] Author: KEVIN STEWART APRN.HANDY Service: ? Author Type: Nurse Practitioner [...] of care. This note was generated using [employer] software. It may contain errors in wording, punctuation, or spelling. Kevin Stewart APRN.[facility]12-04-2023 Discharge summary Author Deng Palmer [facility] September 06, 2023 7:20pm Note Date/Time September 06, 2023 4 :18pm [facility] Medical Records Department [address] [place] [address] Emergency Department Summary 09/06/23 MR#: [id number] Acct: [id number] Name: REYNALDO ADDISON III Rep #:[id number] : 1995 28 From: Deng Palmer MD PCP: Care Physician,No Primary Status :REG ER Location: ED HPI History of Present Illness Chief Complaint: General Illness Informant: patient and parent Narrative Narrative: Patient presents with myalgias fever and just not feeling well. Patient states that yesterday he felt fine. Today he woke up and he has myalgias. He has a slight headache. He has a slight cough but is not short of breath. He mostly has muscle aches all over. He states he has been hot and cold and chilled. He has not checked his temperature but assumed he has had a fever. Hestates he has no appetite but not really nauseated. He has not had vomiting diarrhea or abdominal pain. No urinary symptoms. Patient is ending a prescription for clindamycin but this is for dental infection. He states that was getting better. He is going to have all his teeth pulled soon. He does not know if he has had any exposure to ill people. Patient looks thin to me. When I asked he states he has been losing weight because his teeth are so bad he has trouble eating. But other than that he is able to eat fine. [facility] Medical History (Updated 09/06/23 @ 18:[address] Deng Palmer MD) Asthma Tobacco abuse Home Medications albuterol 90 mcg/actuation aerosol inhaler mcg inhalation Q4H PRN PRN SOB 05/30/23 [History Last Taken Unknown] ondansetron 4 mg disintegrating tablet 4 mg PO Q8H PRN PRN Nausea #10 tabs 08/14/23 [Rx Last Taken Unknown] Allergy/AdvReac Type Severity Reaction Status Date / Time cat dander [cats] Allergy Intermediate Inflammation Verified 08/14/23 17:48 of lung egg Allergy Rash Verified 08/14/23 17:48 Penicillins Allergy Rash Verified 08/14/23 17:48 Family History Father Heart disease Social History Smoking Status: Current every day smoker tobacco type: cigarettes ROS ROS ED ROS Narrative A complete review of systems was performed and is negative except as documented in the history of present illness. Some specific details below. Constitutional: Had subjective fevers chills. He has myalgias. See history of present illness. EYE: No discharge, visual complaints, or pain. ENT: No difficulty swallowing. No swelling. No pain. No reflux symptoms. His teeth are actually doing better. CV: Chest pain or palpitations. Respiratory: Patient with cough but no sputum production and no dyspnea. GI: No abdominal pain. No nausea vomiting diarrhea. No blood in stool. Appetite is down though. : No frequency dysuria or hematuria. Musculoskeletal: No recent trauma. Have diffuse myalgias but no swollen joints or specifically painful areas. Skin: No rash. Nondiaphoretic. Neuro: No weakness or numbness. Endocrine: No polyuria or polydipsia. EXAM Physical Exam Narrative Exam Narrative: CONSTITUTIONAL: Patient is nontoxic in appearance. He does look quite thin and likely from his weight loss. His mouth looks dry. He looks like he does not feel well but is not toxic. HEENT: No notable trauma. Mucous membranes quite dry. No sinus tenderness. No indication of pain with swallowing. His teeth especially in the upper ones have erosions down to the gums. He has diffuse gum erythema. But no drainable abscess. He states this is actually better than it was 10 days ago when he started the antibiotics. NECK: No meningismus. No lymphadenopathy. No stridor. EYES: No conjunctival injection. No proptosis. No icterus noted. NECK:No JVD. No stridor. CARDIOVASCULAR: Tachycardic rate. Regular rhythm. No notable murmur. No JVD. RESPIRATORY: No respiratory distress. Breathing is unlabored. No wheezes. No rhonchi. No rales. No pain with a deep breath. No chest wall tenderness. Saturations are normal at 96% on room air showing no hypoxia GASTROINTESTINAL: Not distended. Bowel sounds are normal. No tenderness. No guarding. No rebound. No palpable mass. No bruit is heard. GENITOURINARY: No tenderness over the bladder. No CVA tenderness. MUSCULOSKELETAL: Atraumatic. No peripheral edema. No cord. No tenderness along the deep venous system. No asymmetry. No distended veins. No petechiae purpura NEUROLOGICAL: Patient is alert and appropriate. No focal deficit noted. SKIN: No noted rashes. No diaphoresis. PSYCHIATRIC: Patient is calm. Mood is appropriate. Const Vital Signs: 09/06/23 14:52 09/06/23 16:11 09/06/23 16:13 Temperature 99.2 F H 99.2 F H Temperature Source Temporal Temporal Pulse Rate 123 H 123 H Respiratory Rate 18 18 Respiratory Effort Normal Respiratory Pattern Normal Blood Pressure 100/50 L 100/50 L Blood Pressure Mean 66 66 Pulse Ox 96 96 Oxygen Delivery Method Room Air Room Air 09/06/23 17:55 Temperature 98.2 F Temperature Source Temporal Pulse Rate 111 H Respiratory Rate 23 H Respiratory Effort Respiratory Pattern Blood Pressure 92/44 L Blood Pressure Mean 60 Pulse Ox 95 Oxygen Delivery Method Room Air MDM MDM MDM Narrative Medical decision making narrative: My independent interpretation of the patient's chest x-ray shows no acute process final reading is similar. Patient CBC is overall normal. Patient's electrolytes are overall normal. Patient's influenza is negative. Patient's COVID screen is positive. Patient's heart rate is down from 120s down to about 97. He does feel better. Saturations are good. I discussed this with him. We discussed the possibility of Paxlovid but mutually agreed not to. I explained that he needs to eat and drink Tylenol for fevers and this should resolve itself. Family his girlfriend has similar symptoms now and so he is going to contact her about avoiding work. Lab Data Attestation: I reviewed the patient's lab results. Labs: Laboratory Results - last 24 hr 09/06/23 16:28 WBC 4.8 RBC 4.54 L Hgb 14.0 Hct 41.8 MCV 92.1 MCH 30.8 MCHC 33.5 RDW Std Deviation 43.7 RDW Coeff of Hortencia 12.9 Plt Count 163 MPV 9.7 Immature Gran % (Auto) 0.200 Neut % (Auto) 81.9 H Lymph % (Auto) 5.4 L Hickman % (Auto) 11.9 H Eos % (Auto) 0.2 Baso % (Auto) 0.4 Absolute Neuts (auto) 3.9 Absolute Lymphs (auto) 0.26 L Nucleated RBC % 0 Differential Comment SEE COMMENT Platelet Estimate ADEQUATE RBC Morphology N CHROM Anisocytosis RARE Macrocytosis RARE Sodium 136 Potassium 3.9 Chloride 103 Carbon Dioxide 26.0 Anion Gap 7 BUN 6 L Creatinine 0.84 Estim Creat Clear Calc 83.33 Est GFR (MDRD) Af Amer 139 Est GFR (MDRD) Non-Af 115 BUN/Creatinine Ratio 7.1 L Glucose 96 Calcium 9.0 Radiography Diagnostic Testing: Clinical Impression(s) from Imaging Studies Chest X-Ray 09/06/23 16:40 IMPRESSION: Normal x-ray examination of the chest. Electronically Signed: Robi Arauz MD at 17:05 EST , EKG Initial EKG: Comments: My independent interpretation of the patient's EKG done for tachycardia shows sinus rhythm with tachycardic rate at 118. This test diffuse nonspecific changes. No sign of infarct or ischemia. LA interval, QRS duration and QTc are normal Discharge Plan Triage Chief Complaint: General Illness ED Provider: Deng Palmer Dx/Rx/DC Orders Clinical Impression: COVID-19 Instructions: Coronavirus Disease 2019 (COVID-19): Caring for Yourself or Others Prescriptions: No Action albuterol 90 mcg/actuation aerosol inhalation Q4H PRN PRN (Reason: SOB) ondansetron [ondansetron] 4 mg tablet,disintegrating 4 mg PO Q8H PRN PRN (Reason: Nausea) Qty: 10 0RF Stand Alone Forms: ED Work / School Excuse Primary Care Provider: Care Physician,No Primary Referrals: Melyssa Garner MD [Med Staff - Reactor Kettle Operator] - 3-5 Days if not improving Care Physician,No Primary [Primary Care Provider] - Disposition Disposition: Home, Self Care What to do if you have Problems For any increased pain, shortness of breath, bleeding, nausea or vomiting, chestpain, or any unexpected problems, contact your Primary Care Provider. Call [facility] ([phone]) or report to the closest Emergency Room. Call 911 if necessary. 09/06/231919 <Electronically signed by Deng Palmer MD> Cosigner Signature (if applicable): CC: No Primary Care Physician ~ Signed [facility] Work Phone: 1(959) 847-417011-11-2023 Discharge summary Author Deng Palmer [facility] August 14, 2023 6:56pm Note Date/Time August 14, 2023 6:55pm [facility] Medical Records Department [address] [place] [address] Emergency Department Summary 08/14/23 MR#: [id number] Acct: [id number] Name: REYNALDO ADDISON III Rep #:[id number] : 1995 28 From: Deng Palmer MD PCP: Dr. Kevin Carcamo MD Status:PRE ER Location: ED HPI History of Present Illness Chief Complaint: Abd Pain Informant: patient Narrative Narrative: Patient presents with mild abdominal cramping and some soft stools. Patient states this has been going on today. He thinks he ate something bad. He does not have nausea vomiting or fevers. He does note that he slipped on thesteps about 2 or 3 days ago. This was 3 steps. He landed on his back and slid down 1. But he states it does not hurt there. His stomach did not hurt afterwards. He has had no blood in his stool. No blood in the urine. Patient then tells me that the real reason he is here is that he did not go to work today because he was not feeling well and he needs a note so he does not get in trouble. He states he really does not want a work- up. He just does not want tolose the job. [facility] Medical History (Updated 08/14/23 @ 18:[address] Deng Palmer MD) Asthma Tobacco abuse Home Medications albuterol 90 mcg/actuation aerosol inhaler mcg inhalation Q4H PRN PRN SOB 05/30/23 [History Last Taken Unknown] ondansetron 4 mg disintegrating tablet 4 mg PO Q8H PRN PRN Nausea #10 tabs 08/14/23 [Rx Last Taken Unknown] Allergy/AdvReac Type Severity Reaction Status Date / Time cat dander [cats] Allergy Intermediate Inflammation Verified 08/14/23 17:48 of lung egg Allergy Rash Verified 08/14/23 17:48 Penicillins Allergy Rash Verified 08/14/23 17:48 Family History Father Heart disease Social History Smoking Status: Current every day smoker tobacco type: cigarettes ROS ROS ED ROS Narrative A complete review of systems was performed and is negative except as documented in the history of present illness. Some specific details below. Constitutional: No recent fevers or chills. EYE: No visual complaints or pain. ENT: No difficulty swallowing. No swelling. No pain. CV: No chest pain or palpitations. Respiratory: No dyspnea. No hemoptysis. No difficulty taking breaths. GI: Please see history of present illness. : No frequency dysuria or hematuria. Musculoskeletal: No recent trauma. No pains. Skin: No rash. Nondiaphoretic. Neuro: No weakness or numbness. Endocrine: No polyuria or polydipsia. EXAM Physical Exam Narrative Exam Narrative: CONSTITUTIONAL: Patient is nontoxic in appearance. The patient looks comfortable. HEENT: No notable trauma. Mucous membranes moist. No sinus tenderness. No indication of pain with swallowing. EYES: No conjunctival injection. No proptosis. CARDIOVASCULAR: Regular rate. Regular rhythm. No notable murmur. No JVD. RESPIRATORY: No respiratory distress. Breathing is unlabored. No wheezes. No rhonchi. No rales. No pain with a deep breath. GASTROINTESTINAL: Not distended. Bowel sounds are normal. No tenderness. No guarding. No rebound. No palpable mass. No bruit. Overall abdomen is very benign. It is thin and completely nontender with normal bowel sounds. GENITOURINARY: No tenderness over the bladder. No CVA tenderness. MUSCULOSKELETAL: Atraumatic. No peripheral edema. No cord. No tenderness along the deep venous system. No asymmetry. NEUROLOGICAL: Patient is alert and appropriate. No focal deficit noted. SKIN: No noted rashes. No diaphoresis. PSYCHIATRIC: Patient is calm. Mood is appropriate. Const Vital Signs: 08/14/23 17:46 Temperature 97.2 F L Temperature Source Temporal Pulse Rate 87 Respiratory Rate 16 Blood Pressure 137/78 H Blood Pressure Mean 97 Pulse Ox 100 Oxygen Delivery Method Room Air MDM MDM MDM Narrative Medical decision making narrative: Patient's history is consistent with mild GI upset. He has some intermittent cramping with soft stools but no nausea vomiting fevers or chills and his abdomen is benign. He does not want a work-up and I do think that is reasonable. I will write him off of work for recovery as he may have a viral illness. I explained I will write him for some Zofran in case that develops but he does not need to fill it as he is not nauseated now. Discharge Plan Triage Chief Complaint: Abd Pain Other Complaint: Back ED Provider: Deng Palmer Dx/Rx/DC Orders Clinical Impression: Abdominal cramping, Diarrhea Instructions: ED Abdominal Pain Unkn Cause Male... Prescriptions: New ondansetron [ondansetron] 4 mg tablet,disintegrating 4 mg PO Q8H PRN PRN (Reason: Nausea) Qty: 10 0RF No Action albuterol 90 mcg/actuation aerosol inhalation Q4H PRN PRN (Reason: SOB) Stand Alone Forms: ED Work / School Excuse Primary Care Provider: Kevin Carcamo Referrals: Kevin Carcamo MD [Primary Care Provider] - 3-5 Days if not improving Disposition Disposition: Home, Self Care What to do if you have Problems For any increased pain, shortness of breath, bleeding, nausea or vomiting, chestpain, or any unexpected problems, contact your Primary Care Provider. Call [facility] ([phone]) or report to the closest Emergency Room. Call 911 if necessary. 08/14/231855 <Electronically signed by Deng Palmer MD> Cosigner Signature (if applicable): CC: Dr. Kevin Carcamo MD ~ Signed [facility] Work Phone: [phone]) 944-912609-29-2023 Instructions* Patient Instructions* Kevin Stewart APRN.WEDDING CONSULTANT - 07/02/2023 5:58 PM EDT How to Manage Common Symptoms Associated with COVID for Adults Fever- Fever is a temperature over 100.4 F and can occur when the body is fighting an infection. Tohelp treat a fever: Drink plenty of fluids [...] your chest such as Vicks, which can helpreduce cough. Try cough drops. Avoid smoking and other strong odors or perfumes. Try breathing exercises to keep your lungs open and clear. Take a big deep breath through your noseand hold for 5 seconds before slowly releasing. [...] of water every 10-15 minutes and increase astolerated. You can try sucking an ice cube [...] or concerning to you. documented in this encounterC[facility]09-29-2023 History of Present illness Narrative* Kevin Stewart APRN.HANDY - 07/02/2023 5:45 PM EDT Subjective HPI Nontoxic-appearing male presents urgent care chief complaint flulike symptoms. Duration of symptoms3 days. Associated symptoms with today's chief complaint are on and off headache, muscle aches, fatigue, nonproductive cough, and fever. Patient stated symptoms started abruptly. Patient states they have used kjja-ihu-vyjfqla medication with some success. Patient states they [...] needed for wheezing/shortness of breath. Use over 5- 15minutes. (Patient not taking: Reported on07/02/2023) albuterol HFA (PROAIR HFA) 90 mcg/actuation inhaler [...] on movement. Nose: Congestion present. Mouth/Throat: Lips: [place]. Mouth: Mucous membranes are moist. Dentition: Abnormal [...] of care. This note was generated using [employer] software. It may contain errors in wording, punctuation, or spelling. Kevin Stewart APRN.HANDY documented in this encounterC[facility] History of Present illness Narrative* Kevin Stewart APRN.HANDY - 12/10/2022 2:47 PM EST Subjective HPI Nontoxic-appearing male presents urgent care [...] care or ED for any new worsening orsymptoms lasting along anticipated. Patient verbalized understand agrees with plan of care. Kevin Stewart APRN.HANDY documented in this encounterC[facility]02-09-2023 Instructions* Patient Instructions* Alix Perez - 11/12/2022 9:43 AM EST [...] resolved Alix Perez APRN-student documented in this encounterCleveland Clinic [facility]02-09-2023 History of Present illness Narrative* Alix Perez - 11/12/2022 9:17 AM EST Subjective HPI ROS Objective Physical Exam * Melba Galarza-SANTINO Deras.WEDDING CONSULTANT - 11/12/2022 9:16 AM EST Images from the original note were not included. This note was created using [employer]. Subjective Reynaldo Addison is a 27 year old male who presents with 4 days of left ear pain and pressure. Paindescribed as 2/10 and notes this feel similar [...] injected, scarred, perforated or erythematous. Mouth/Throat: Lips: [place]. Mouth: Mucous membranes are moist. Dentition: Abnormal [...] until resolved Alix Perez APRN-student TEACHING PROVIDER (Physician/PA/CORPORATE QUALITY ASSURANCE MANAGER) NOTE OF PERSONAL INVOLVEMENT IN CARE: I have personally seen and examined the patient and performed the medical decision-making components. I have reviewed the Advanced Practice Registered Nurse (CORPORATE QUALITY ASSURANCE MANAGER) Student's documentation and verified the findings in the note as written. Any additions or changes are noted in bold/italics. Signature: Melba Jones Date: 11/12/2022 Time: 9:51 AM documented in this encounterCleveland Clinic [facility]01-12-2023 History of Present illness Narrative* Skye Maradiaga PA-C - 10/15/2022 6:12 PM EST This note was created using [employer]. Subjective Reynaldo Addison is a 27 year old male. [...] Denies cough or congestion. 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 Use over 5- 15minutes. 432 mL 1 albuterol HFA (PROAIR HFA) [...] diarrhea persists past 5-7 days, he has bloodin stool, fever or other worsening symptoms be seen again. Abdomen benign on exam today. BRAT diet discussed. - COVID WITH FLUA+B, ROUTINE Skye Maradiaga PA-C documented in this encounterCleveland Clinic [facility]09-02-2022 Instructions* Patient Instructions* Rach Lay APRN.CNP - 06/05/2022 4:19 PM [...] breath, inability to swallow. documented in this encounterCleveland Clinic [facility]09-02-2022 History of Present illness Narrative* Rach Lay APRN.CNP - 06/05/2022 4:17 PM EDT Subjective The history is provided by the patient. No patient's librarian was used. DION Addison is a 26 year old male who presents today for CC of cough and nasal congestion.This started 2 days ago. He is also [...] have confirmed and edited as necessary, the [facility] Review of Systems Constitutional: Negative for chills, [...] in 24-48 hours with results, available on mychart - 2019 CORONAVIRUS Diagnosis and treatment plan were discussed and questions were answered to the patient's satisfaction. Pt acknowledged understanding of concepts and follow up plan. Specific signs and symptoms that would indicate the need for higher level of care were discussed indetail warranting prompt ER evaluation. Rach Lay APRN.CNP documented in this encounterCleveland Clinic [facility]06-15-2021 History of Present illness Narrative* Chula Rivers RT(R) - 03/18/2021 5:40 PM EDT Radiology Service Progress Note PATIENT NAME: Reynaldo Addison DATE OF SERVICE: March 18, 2021 TIME: 5:44 PM PATIENT IDENTITY VERIFICATION COMPLETED USING TWO (2) IDENTIFIERS: Name and Date of confirmedby patient verbally. FALL SCREENING: Has the patient [...] 18, 2021 5:44 PM documented in this encounterCleveland Clinic Mercy HospitalDischarge summary Author Kendrick Page [facility] Note Date/Time April 18, 2025 11:0 3am [facility] Medical Records Department [address] [place] [address] Emergency Department Summary 04/18/25 MR#: [id number] Acct: [id number] Name: REYNALDO ADDISON III Rep #:[id number] : 1995 29 From: Kendrick Page MD PCP: Dr. Moustapha Gtz MD Status :REG ER Location: ED HPI History of Present Illness Chief Complaint: Palpitations Detail of Chief Complaint: Palpitations and anxiousness Informant: patient Onset/Context/Timing Onset: Today Context: Sudden Onset Timing: Intermittent Quality: Fast heart rate when he was walking. He was waiting for news regardingnew Location: Residence Current Severity: Gone Maximum Severity: Moderate Worsened by: Stress related to new job Relieved by: Not applicable Associated Symptoms Associated Symptoms: Heart rate of 109. Patient states he was walking at the time. Narrative Narrative: Patient is a 29-year-old male. He has no significant past medical history. He is on BuSpar. He does have history of anxiety and depression. Patient presently works at [employer]. He is scheduled to start a new job at [employer]. He is waiting for information regarding training. He apparently became anxious. He noted his heart rate was fast. Today his heart rate was 109. He was walking at the time. He denies chest discomfort. Denies shortness of breath. He denied diaphoresis. He denied nausea or vomiting. He has no history of MVP. He has no history of VTE. He denies leg pain, swelling discoloration. He has no weight gain or weight loss. He has no symptoms of hyperthyroidism. Prior similar symptoms: Yes Recent Illness/Hospitalization: No PFSH PFS Medical History Anxiety Tobacco abuse Asthma Home Medications ?Medication ?Instructions ?Recorded ?Last Taken ?Type buspirone 7.5 mg tablet 7.5 mg PO BID 04/18/25 Unkno wn History Allergy/AdvReac Type Severity Reaction Status Date / Time cat dander (cats) Allergy Intermediate Inflammation Verified 04/18/25 10:03 of lung egg Allergy Rash Verified 04/18/25 10:03 Penicillins Allergy Rash Verified 04/18/25 10:03 Family History Father Heart disease Social History household members: significant other housing: apartment Smoking Status: Current every day smoker tobacco type: cigarettes ROS ROS ED Constitutional Constitutional ED: Denies chills, fever(s), subjective, sweats or weight loss Eyes Eyes: Denies change in vision Cardiovascular Cardiovascular: Reports palpitations and racing heartbeat; Denies chest pain Respiratory/Chest Respiratory/Chest: Denies cough, dyspnea or dyspnea on exertion Gastrointestinal Gastrointestinal: Denies abdominal pain, nausea or vomiting Psychiatric Psychiatric: Reports anxiety Hematologic/Lymphatic Hematologic/Lymphatic: Reports systems reviewed and no addt'l complaints, exceptas documented EXAM Physical Exam Const Vital Signs: 04/18/25 10:02 04/18/25 10:07 Temperature 97.8 F Temperature Source Temporal Pulse Rate 95 Respiratory Rate 16 Respiratory Effort Normal Blood Pressure 117/76 Blood Pressure Mean 89 Pulse Ox 100 Oxygen Delivery Method Room Air Positive well nourished and well developed Constitutional Narrative: Patient is thin with a BMI of 17.8. General Appearance ED: well developed and pallor HEENT Reports moist mucous membranes HEENT Narrative: HEENT is grossly unremarkable. Eyes PERRL and EOMs intact bilaterally General Eye ED: Negative for scleral icterus Chest Wall palpation of chest normal Resp normal respiratory effort and clear to auscultation bilaterally Cardio regular rate, regular rhythm, S2 normal heart sound and no murmurs Rate: other Other Details: There is no click to suggest MVP. Extremity normal to inspection General Extremety ED: Negative for edema or tenderness General Extremity: Negative for edema Neuro oriented x3 and CN's II-XII intact bilaterally Sensorium / Orientation: alert Psych Mood & Affect: anxious Skin no rashes or lesions noted, no wounds and skin turgor normal General Skin Exam: pallor; Negative for elasticity normal or jaundice MDM MDM MDM Narrative Medical decision making narrative: Vital signs are normal. Patient appears slightly anxious. He is thin. He states he is always been thin. He said no weight loss. There is no concern forhyperthyroidism. Patient placed on a monitor. He was observed for 30 minutes. He had no ectopy. Therefore will discharge to home. Discharge Plan Triage Chief Complaint: Palpitations ED Provider: Kendrick Page Dx/Rx/DC Orders Clinical Impression: Anxiety reaction, Encounter for medical screening examination Instructions: ED Anxiety Reaction Prescriptions: No Action buspirone 7.5 mg tablet 7.5 mg PO BID Primary Care Provider: Moustapha Gtz Referrals: Moustapha Gtz MD [Primary Care Provider] - As Needed Print Language: Taiwanese Disposition Disposition: Home, Self Care What to do if you have Problems For any increased pain, shortness of breath, bleeding, nausea or vomiting, chestpain, or any unexpected problems, contact your Primary Care Provider. Call [facility] ([phone]) or report to the closest Emergency Room. Call 911 if necessary. 04/18/25 1103 <Electronically signed by Kendrick Page MD> Cosigner Signature (if applicable): CC: Dr. Moustapha Gtz MD ~ Signed [facility] Work Phone: Evaluation note* Diagnosis Acute cough- Primary Nasal congestion Other diseases of nasal cavity and sinuses Wheezing Suspected COVID-19 virus infection documented [facility] encounter [facility]* Diagnosis Diarrhea, unspecified type- Primary [facility] Diagnosis Acute otitis externa of left ear, unspecified type- Primary [facility]* Diagnosis Loose stools- Primary Abnormal feces [facility]* Diagnosis Pharyngitis, unspecified etiology- Primary Viral illness Unspecified viral infection, in conditions classified elsewhere and of unspecified site documented in this encounter [facility] noteNo assessment information availableWooPeoples Hospital Work Phone: Evaluation note* Diagnosis Moderate persistent asthma with (acute) exacerbation- Primary documented [facility] this encounter [facility]* Diagnosis Headache, unspecified headache type- Primary Injury of head, subsequent encounter Tachycardia Tachycardia, unspecified Right atrial enlargement Cardiomegaly Tobacco use Tobacco use disorder 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 documented [facility] this encounter [facility]* Diagnosis Encounter for medical examination to establish care- Primary TERI (generalized anxiety disorder) Generalized anxiety disorder Bipolar affective disorder, current episode mixed, current episode severity unspecified (HCC) Intermittent asthma without complication, unspecified asthma severity Tobacco use Tobacco use disorder documented [facility] this encounter [facility]* Diagnosis Vitamin D deficiency- Primary Unspecified vitamin D deficiency documented [facility] this encounter [facility]* Diagnosis Lower resp. tract infection- Primary Other diseases of respiratory system, not elsewhere classified documented in this encounter [facility] Discharge instructions Additional Instructions Please continue to follow-up outpatient with behavioral health and your psychiatrist. Return if you have a progression worsening your symptoms or further concerns.[facility] Work Phone: Reason for referral (narrative)* Outpatient Procedure (Routine) - New Request Specialty Diagnoses / Procedures Referred By Contac t Referred To Contact [facility] [place] Diagnoses Tachycardia Procedures ECG COMPLETE ECG ROUTINE ECG W/LEAST 12 LDS W/I&R Daryn Gtz MD [address] [place] [address] [facility] [address] [address] Referral ID Status Reason Start Date Expiration Date Visits Requested Visits Authorized [id number] New Request Auto-Generat ed Referral 05/11/2024 05/11/2025 1 1 [facility] for referral (narrative)* Outpatient Procedure (Routine) - Authorized Specialty Diagnoses / Procedures Referred By Contac t Referred To Contact [facility] Diagnoses Intermittent asthma without complication, unspecified asthma severity Procedures SPIROMETRY - BASELINE AND POST DILATOR BRNCDILAT RSPSE SPMTRY PRE&POST-BRNCDILAT ADMN Daryn Gtz MD [address] [place] [address] Respiratory [place] [address] [place] [id number] Referral ID Status Reason Start Date Expiration Date Visits Requested Visits Authorized [id number] Authorized Auto-Generat ed Referral 06/26/2024 07/26/2025 1 1 [facility] for referral (narrative)No reason for referral information availableWMadison Health Work Phone: Health Concerns Infection Onset Date Last Indicated Resolved Time COVID-19 Rule-Out 06/05/2022 06/05/2022 Infection Onset Date Last Indicated Resolved Time COVID-19 Rule-Out 10/15/2022 10/15/2022 Infection Onset Date Last Indicated Resolved Time COVID-19 Rule-Out 07/02/2023 07/02/2023 Chief Complaint and Reason for Visit Chief Complaint CHEST PAIN ABD PAIN Chief Complaint CHEST PAIN ABD PAIN GENERAL ILLNES Chief Complaint SOB Chief Complaint Admit Date ANXIETY November 05, 2024 3 :48pm anxiety January 11, 2025 5:2 4pm Chief Complaint Admit Date anxiety January 11, 2025 5:2 4pm WOUND March 16, 2025 9:52 pm Chief Complaint Admit Date anxiety January 11, 2025 5:2 4pm WOUND March 16, 2025 9:52 pm palpitations April 18, 2025 10:0 0am Advance Directives No Advanced Directives Records Found Advance Directive Response Recorded Date/ Time Advance Directives No September 10, 2016 6:15am Living Will No August 14, 023 6:22pm Power of Installer Metal Flooring No August 14, 2023 6:22pm Advance Directive Response Recorded Date/ Time Advance Directives No September 10, 2016 6:15am Living Will No September 06 4:11pm Power of Installer Metal Flooring No September 06, 2023 4:11pm Advance Directive Response Recorded Date/ Time Advance Directives No September 10, 2016 7:15am Living Will No January 10, 2024 7:57pm Power of Installer Metal Flooring No January 09 7:57pm Advance Directive Response Recorded Date/ Time Living Will No January 11, 2025 6:50pm Do you have a Healthcare Power of Installer Metal Flooring? No January 11, 2025 6:50pm Living Will No November 05 6:05pm Do you have a Healthcare Power of Installer Metal Flooring? No November 05, 2024 6:05pm Advance Directives No September 10, 2016 7:15am Advance Directive Response Recorded Date/ Time Living Will No January 11, 2025 6:50pm Do you have a Healthcare Power of Installer Metal Flooring? No January 11, 2025 6:50pm Do you have a Healthcare Power of Installer Metal Flooring? No March 16, 2025 10:49pm Advance Directives No September 10, 2016 7:15am Advance Directive Response Recorded Date/ Time Living Will No January 11, 2025 6:50pm Do you have a Healthcare Power of Installer Metal Flooring? No January 11, 2025 6:50pm Do you have a Healthcare Power of Installer Metal Flooring? No March 16, 2025 10:49pm Do you have a Healthcare Power of Installer Metal Flooring? No April 18, 2025 10:07am Advance Directives No September 10, 2016 7:15am Summary Purpose Family History No Family History Records Found Additional Source Comments Source Comments (unrecognize d section and content) In the event this informatio n is protected by the Federal Confidentiality of Alcohol and Drug Abuse Patient Records regulations: The Federal rules restrict any use of the information to criminally investigate or prosecute any alcohol or drug abuse patient.[facility] HospitalIn the event this information is protected by the Federal Confidentiality of Alcohol and Drug Abuse Patient Records regulations: The Federal rules restrict any use of the information to criminally investigate or prosecute any alcohol or drug abuse patient.[facility] HospitalIn the event this information is protected by the Federal Confidentiality of Alcohol and Drug Abuse Patient Records regulations: The Federal rules restrict any use of the information to criminally investigate or prosecute any alcohol or drug abuse patient.[facility] HospitalIn the event this information is protected by the Federal Confidentiality of Alcohol and Drug Abuse Patient Records regulations: The Federal rules restrict any use of the information to criminally investigate or prosecute any alcohol or drug abuse patient.[facility] HospitalIn the event this information is protected by the Federal Confidentiality of Alcohol and Drug Abuse Patient Records regulations: The Federal rules restrict any use of the information to criminally investigate or prosecute any alcohol or drug abuse patient.[facility] HospitalIn the event this information is protected by the Federal Confidentiality of Alcohol and Drug Abuse Patient Records regulations: The Federal rules restrict any use of the information to criminally investigate or prosecute any alcohol or drug abuse patient.[facility] HospitalIn the event this information is protected by the Federal Confidentiality of Alcohol and Drug Abuse Patient Records regulations: The Federal rules restrict any use of the information to criminally investigate or prosecute any alcohol or drug abuse patient.[facility] HospitalIn the event this information is protected by the Federal Confidentiality of Alcohol and Drug Abuse Patient Records regulations: The Federal rules restrict any use of the information to criminally investigate or prosecute any alcohol or drug abuse patient.[facility] HospitalIn the event this information is protected by the Federal Confidentiality of Alcohol and Drug Abuse Patient Records regulations: The Federal rules restrict any use of the information to criminally investigate or prosecute any alcohol or drug abuse patient.[facility] HospitalIn the event this information is protected by the Federal Confidentiality of Alcohol and Drug Abuse Patient Records regulations: The Federal rules restrict any use of the information to criminally investigate or prosecute any alcohol or drug abuse patient.[facility] HospitalIn the event this information is protected by the Federal Confidentiality of Alcohol and Drug Abuse Patient Records regulations: The Federal rules restrict any use of the information to criminally investigate or prosecute any alcohol or drug abuse patient.[facility] Reason for Visit (unrecogniz ed section [...] Care Teams (unrecognized sec tion and content) Team Status: Active Member Role Status Dates Dr. Kevin Carcamo MD Family Provider Active Dr. Kevin Carcamo MD Primary Care Provider Active Team Status: Inactive Member Role Status Dates Dr. Kevin Carcamo MD Primary Care Provider Active Hossein Weber MD Attending Provider, Emergency Provid er Active Team Status: Inactive Member Role Status Dates Dr. Kevin Carcamo MD Primary Care Provider Active Dr. Deng Palmer MD Emergency Provider Active Team Status: Active Member Role Status Dates Dr. Kevin Carcamo MD Family Provider Active No Primary Care Physician Primary Care Provider Active Team Status: Inactive Member Role Status Dates Dr. Kevin Carcamo MD Primary Care Provider Active Dr. Deng Palmer MD Attending Provider, Emergency Provider Active Team Status: Inactive Member Role Status Dates Dr. Deng Palmer MD Emergency Provider Active No Primary Care Physician Primary Care Provider Active Team Status: Inactive Member Role Status Dates No Primary Care Physician Primary Care Provider Active Dr. Samson Ruvalcaba DO Emergency Provider Active Character Impersonator Relationship Specialty Start Date End Date Daryn Gtz MD [address] [place], [place] [id number] PCP - General Family Medicine 06/26/24 Character Impersonator Relationship Specialty Start Date End Date Daryn Gtz MD [address] [place], [place] [id number] PCP - General Family Medicine 06/26/24 Character Impersonator Relationship Specialty Start Date End Date Daryn Gtz MD [address] [place], [place] [id number] PCP - General Family Medicine 06/26/24 Team Status: Active Member Role Status Dates Dr. Moustapha Gtz MD Primary Care Provider Acti ve Team Status: Inactive Member Role Status Dates Dr. Moustapha Gtz MD Primary Care Provider Acti ve Start: November 05, 2024 End: November 05, 2024 Dr. David Lomax DO Attending Provider Active Start: November 05, 2024 End: November 05, 2024 Dr. David Lomax DO Emergency Provider Active Start: November 05, 2024 End: November 05, 2024 Team Status: Inactive Member Role Status Dates Dr. Moustapha Gtz MD Primary Care Provider Acti ve Start: January 11, 2025 End: January 11, 2025 Dr. Charla Sepulveda DO Emergency Provider Active Start: January 11, 2025 End: January 11, 2025 Team Status: Inactive Member Role Status Dates Dr. Moustapha Gtz MD Primary Care Provider Acti ve Start: January 11, 2025 End: January 11, 2025 Dr. Charla Sepulveda DO Attending Provider Active Start: January 11, 2025 End: January 11, 2025 Dr. Charla Sepulveda DO Emergency Provider Active Start: January 11, 2025 End: January 11, 2025 Team Status: Inactive Member Role Status Dates Dr. Moustapha Gtz MD Primary Care Provider Acti ve Start: March 16, 2025 End: March 16, 2025 Dr. Chung Vallejo MD Emergency Provider Active Start: March 16, 2025 End: March 16, 2025 Team Status: Active Member Role/Relationship Status Dates Dr. Moustapha Gtz MD Primary Care Provider Acti ve Team Status: Inactive Member Role/Relationship Status Dates Dr. Moustapha Gtz MD Primary Care Provider Acti ve Start: January 11, 2025 End: January 11, 2025 Dr. Charla Sepulveda DO Attending Provider Active Start: January 11, 2025 End: January 11, 2025 Dr. Charla Sepulveda DO Emergency Provider Active Start: January 11, 2025 End: January 11, 2025 Team Status: Inactive Member Role/Relationship Status Dates Dr. Moustapha Gtz MD Primary Care Provider Acti ve Start: March 16, 2025 End: March 16, 2025 Dr. Chung Vallejo MD Attending Provider Active Start: March 16, 2025 End: March 16, 2025 Dr. Chung Vallejo MD Emergency Provider Active Start: March 16, 2025 End: March 16, 2025 Team Status: Inactive Member Role/Relationship Status Dates Dr. Moustapha Gtz MD Primary Care Provider Actfranck eaton Start: April 18, 2025 End: April 18, 2025 Dr. Kendrick Page MD Emergency Provider Active Sta rt: April 18, 2025 End: April 18, 2025 Goals (unrecognized section and content) Goals may be documented in a n alternate sectionGoals may be documented in an alternate sectionGoals may be documented in an alternate sectionGoals may be documented in an alternate sectionGoals may be documented in an alternate sectionGoals may be documented in an alternate section (unrecognized sect ion and content) No Status Records FoundNo Status Records Found INFORMATION SOURCE (unrecogn ized section and content) DATE CREATED AUTHOR 07/25/2024 [facility] DATE CREATED AUTHOR AUTHOR'S JEANNIEIZ ESTEBAN 04/25/2025 [facility] FOR RECORDS PERTAINING TO PATIENTS WHO [...] BE BASED ON THE PRIMARY CLINICAL RECORDS. [employer] provides no warranty or guarantee of the accuracy or completeness of information in this document.
[2025-06-16 22:27] VITALS: BP 107/67; PULSE 78; RESP 16; TEMP 36.7; O2SAT 100
== END 2025-06-16 22:28 | disposition home or self-care (01) ==
PROVIDERS: Emergency Provider Emergency Medicine; PCP Family Medicine; Visit Provider Emergency Medicine
DX: F41.1 Generalized anxiety disorder (principal); F17.200 Nicotine dependence, unspecified, uncomplicated; Z79.899 Other long term (current) drug therapy
CPT/HCPCS: 93005; 99283

== ENCOUNTER 2025-08-21 15:08 | Emergency (ER) | payer SELFPAY ==
[2025-08-21 15:09] VITALS: BP 121/88; PULSE 123; RESP 18; TEMP 36.8; O2SAT 99; BMI 17.6
--- NOTE | 2025-08-21 15:49 | EDS_ITS ---
HPI HPI - URI History of Present Illness Chief Complaint: Cold Sx Informant: patient Onset/Context/Timing Onset: Days Context: Gradual Onset Timing: Continuous Current Severity: Mild Maximum Severity: Mild Associated Symptoms Associated Symptoms: Positive for Productive Cough (Yellow-green sputum. No hemoptysis. No chest pain.); Negative for Nausea, Vomiting or Diarrhea Narrative Narrative: 30-year-old male history of asthma uses inhaler currently not on steroids. He does smoke a pack of cigarettes a day which have counseled him against. States he has had URI symptoms with a cough for last 2 days primarily yellow to green sputum. No blood. No fever or chills. Denies any nausea vomiting or diarrhea. No dysuria. Denies any significant wheezing. Prior similar symptoms: Yes Recent Illness/Hospitalization: No ROS ROS ED ROS Narrative Cough Constitutional Constitutional ED: Denies chills or fever(s) Eyes Eyes: Denies blurry vision ENT ENT ED: Reports sore throat; Denies ear pain or rhinorrhea Cardiovascular Cardiovascular: Denies chest pain Respiratory/Chest Respiratory/Chest: Reports cough and sputum Gastrointestinal Gastrointestinal: Denies abdominal pain or constipation Genitourinary Genitourinary ED: Denies dysuria or hematuria Musculoskeletal Musculoskeletal: Denies arthralgias Integumentary Denies abscess Neurologic Neurologic: Denies headache(s) Psychiatric Psychiatric: Denies anxiety Endocrine Endocrinology: Denies cold intolerance Hematologic/Lymphatic Hematologic/Lymphatic: Denies easy bleeding, easy bruising or lymphadenopathy Allergic/Immunologic Allergic/Immunologic ED: Denies mouth swelling, tongue swelling or urticaria PFSH PFSH Medical History Anxiety Tobacco abuse Asthma Home Medications ?Medication ?Instructions ?Recorded ?Last Taken ?Type buspirone 7.5 mg tablet 7.5 mg PO BID 04/18/25 Unkno wn History alprazolam 0.25 mg tablet 0.25 mg PO DAILY PRN anxiety 06/16/25 Unknown History Allergy/AdvReac Type Severity Reaction Status Date / Time cat dander (cats) Allergy Intermediate Inflammation Verified 08/21/25 15:09 of lung egg Allergy Rash Verified 08/21/25 15:09 Penicillins Allergy Rash Verified 08/21/25 15:09 Family History Father Heart disease Social History household members: significant other housing: apartment Smoking Status: Heavy Smoker (>10/day) EXAM Physical Exam Narrative Exam Narrative: Well-appearing 30-year-old male. Vital signs stable afebrile pulse ox 90% on room air no hypoxia. H EENT exam pupils round react light. Moist mucous membranes. TMs normal bilaterally. Posterior pharynx unremarkable. No stridor or drooling. Neck nontender no lymphadenopathy no meningismus. Back nontender. Lungs clear to auscultation bilaterally. No rales, rhonchi or wheezing. Equal symmetrical. Heart regular rhythm rate about 110 no murmur. Chest wall ribs nontender. Abdomen soft nontender. Moving all 4 extremities. Nontender no edema. Normal strength. Neurologically he is awake alert. Answering questions and following commands. Benign exam. Const Vital Signs: 08/21/25 15:09 Temperature 98.2 F Temperature Source Oral Pulse Rate 123 H Respiratory Rate 18 Blood Pressure 121/88 H Blood Pressure Mean 99 Pulse Ox 99 Oxygen Delivery Method Room Air MDM MDM MDM Narrative Medical decision making narrative: 30-year-old male history of asthma currently not wheezing. Says he really has not been wheezing. With URI symptoms. Clinically this is a viral syndrome. A chest x-ray will be obtained to rule out pneumonia. We discussed but he does not want COVID or influenza testing I do not think it is either 1 of those. He does not need aerosol treatments at this time. Repeat exam patient is doing well at 4:09 PM. We went over his chest x-ray. We discharged home and treat as a viral URI. Currently is not wheezing and does not need steroids. He has an inhaler at home. History & Record Review Discussion w/independent historian: Patient and Family Radiography Chest X-Ray - ED: 2 View, Read by ED Physician, Normal, Heart, Lungs, M ediastinum, Bony Structures, No Acute Disease and Chronic Changes Diagnostic Testing: Chest x-ray, 2 views, AP and lateral, interpreted by myself shows normal cardiac silhouette. Normal mediastinum. Normal lung freeman. No pneumonia. No infiltrates. No effusions. Discharge Plan Triage Chief Complaint: Cold Sx ED Provider: Morgan Byrd Dx/Rx/DC Orders Clinical Impression: Acute viral bronchitis, History of asthma Instructions: Acute Bronchitis Prescriptions: No Action buspirone 7.5 mg tablet 7.5 mg PO BID alprazolam 0.25 mg tablet 0.25 mg PO DAILY PRN (Reason: anxiety) Primary Care Provider: Moustapha Gtz Referrals: Moustapha Gtz MD [Primary Care Provider, Family Practice] - 1 Week if not improving Activity Restrictions/Additional Instructions: Plenty of fluids and rest. Chest x-ray look good. No signs of pneumonia. This should progressively improve over the next week. Follow-up with your doctor if not improving. Use your inhaler as needed. If you are getting worse and start having wheezing you may need steroids. Long-term definitely try to quit smoking. Print Language: Indonesian Disposition Disposition: Home, Self Care
--- NOTE | 2025-08-21 15:55 | RAD_ITS ---
PROCEDURE: CHEST PA AND LATERAL 08/21/2025 REASON FOR EXAM: COUGH TECHNIQUE: Procedure Code: RADCXR Modality: DX Procedure: CHEST PA AND LATERAL COMPARISON: Chest x-ray of 09/06/2023. RAD/Chest PA and Lateral IMPRESSION: No significant interval osseous change is seen. Lungs appear clear of acute disease. No pleural effusion or pneumothorax is noted. The cardiomediastinal silhouette is within the normal range, and unchanged. No evidence of acute cardiopulmonary disease. Reading Location: [place] [id number]
[2025-08-21 16:04] VITALS: BP 113/81; PULSE 98; RESP 16; O2SAT 99
[2025-08-21 16:14] VITALS: BP 113/81; PULSE 98; RESP 16; TEMP 36.8; O2SAT 99
== END 2025-08-21 16:14 | disposition home or self-care (01) ==
PROVIDERS: Emergency Provider Emergency Medicine; PCP Family Medicine; Visit Provider Emergency Medicine
DX: J20.8 Acute bronchitis due to other specified organisms (principal); F17.210 Nicotine dependence, cigarettes, uncomplicated; Z87.09 Personal history of other diseases of the respiratory system; F41.9 Anxiety disorder, unspecified; Z79.899 Other long term (current) drug therapy
CPT/HCPCS: 71046; 99282

== ENCOUNTER 2025-08-24 17:25 | Emergency (ER) | payer SELFPAY ==
[2025-08-24 17:26] VITALS: BP 117/79; PULSE 99; RESP 16; TEMP 37.1; O2SAT 99; BMI 18.8
--- OUTSIDE RECORDS SUMMARY | 2025-08-24 19:04 | XMS RPT_ITS | CCD ---
Author Organization [facility] CliniSyny Care Team Providers Care Brass Polisher Name Role Phone Unavailable Primary Care Provider Daryn Stratton MD Primary Care Provider Unavailable Primary Care Provider UnavailDr. Moustapha Meléndez MD Primary Care Provider Dr. David Lomax DO Attending Provider Dr. David Lomax DO Emergency Provider Dr. Charla Sepulveda DO Emergency Provider Dr. Moustapha Gtz MD Primary Care Provider Dr. Charla Sepulveda DO Attending Provider Dr. Chung Vallejo MD Emergency Provider Dr. Chung Vallejo MD Attending Provider Dr. Kendrick Page MD Emergency Provider Dr. Moustapha Gtz MD Primary Care Provider Dr. Kendrick Page MD Attending Provider Moustapha Gtz Primary Care Unavailable Jelani Scott Attending Unavailable Moustapha Gtz Primary Care Unavailable Jalil Gomez Attending Unavailable Jalil Gomez Referring Unavailable Moustapha Gtz Primary Care Unavailable David Lomax Attending Unavailable Moustapha Gtz Primary Care Unavailable Charla Sepulveda Attending Unavailable Chung Vallejo Attending Unavailable Moustapha Gtz Primary Care Unavailable Moustapha Gtz Primary Care Unavailable Page, Kendrick Attending Unavailable Moustapha Gtz Primary Care Unavailable Camilo, Kendrick Attending Unavailable DARYN GTZ Primary Care Unavailab DARYN Luna Attending Unavailab LIVIER Burns Referring Unavailable DARYN GTZ Primary Care Unavailab DARYN Luna Primary Care Unavailab LIVIER Burns Attending Unavailable DARYN GTZ Primary Care Unavailab DARYN Luna Primary Care Unavailab le DARYN GTZ Referring Unavailab le Allergies Allergy Classification Reported Allergen(s) Allergy Type Date of Onset Reaction(s) Facility (19 sources) egg extract; Translations: [EGG] Drug Allergy 5 [facility] (12 sources) Penicillins; Translations: [PENICILLINS] Drug Allergy 5 [facility] Work Phone: (7 sources) Penicillins Allergy to substance 3 [facility] (8 sources) cat dander; Translations: [cat dander] Allergy to substance 3 Inflammation of lung [facility] (5 sources) Cat; Translations: [CATS] Allergy to substance 5 Shortness of Breath [facility] (1 source) egg extract Drug Allergy 5 [facility] (1 source) Penicillins Drug allergy (disorder) 5 [facility] Medications Current Medications Medication Drug Class(es) [...] for wheezing/shortness of breath. Use over 5-15minutes. ALPRAZolam 0.25 mg oral tablet (1 source) Benzodiazepine Start: take 1 tablet by mouth once daily as needed for anxiety Alprazolam 0.25 mg tablet Active 0.25 mg PO DAILY as needed for anxiety June 16, 2025 12:00am amitriptyline hydrochloride 10 mg oral tablet (1 source) Tricyclic Antidepressant Start: take 1 tablet by mouth once daily at bedtime amitriptyline (ELAVIL) 10 mg tablet Take 1 tablet every day by oral route at bedtime. 05/16/2024 Active buPROPion hydrochloride 75 mg oral tablet (1 source) Aminoketone Start: buPROPion (WELLBUTRIN) 75 mg tablet 07/21/2024 Active busPIRone hydrochloride 7.5 mg oral tablet (2 sources) Start: take 1 tablet by mouth twice [...] 1 tablet by milagros th once daily. mirtazapine 15 mg oral tablet (1 source) Start: take 7.5 mg by mouth once daily Mirtazapine 15 mg tablet Active 7.5 mg PO DAILY June 16, 2025 12:00am [place] (Nk) (2 sources) Start: [place] (Nk) Active June 28, 2024 12:00am propranolol [...] three times daily. Albuterol 90 mcg/actuation aerosol (4 sources) Start: 05-30-2023 End: 05-09-2024 Albuterol 90 mcg/actuation aerosol Discontinued ug INHALATION EVERY 4 HOURS NEEDED as needed for SOB May 30, 2023 12:00am May 09, 2024 2:27pm azelastine hydrochloride 0.137 mg/actuat metered dose nasal spray (4 sources) Histamine-1 Receptor Antagonist Start: 05-06-2024 End: 05-09-2024 Azelastine 137 mcg (0.1 %) spray,non-aerosol Discontinued 2 NMA INTRANASAL TWICE A DAY 30 0 May 06, 2024 12:00am May 09, 2024 2:28pm administer into each nostril Beclomethasone Dipropionate (7 sources) Corticosteroid Start: 02-13-2017 End: 07-21-2018 Beclomethasone [...] formoterol fumarate 0.0045 mg/actuat metered dose inhaler (7 sources) Corticosteroid, beta2-Adrenergic Agonist Start: 07-21-2018 End: 07-26-2018 Budesonide-Formoterol (Symbicort) 160-4.5 mcg/actuation HFA aerosol inhaler Discontinued 2 NMA INHALATION TWICE A DAY 10 06July 21, 2018 12:00am July 26, 2018 10:19am [...] mometasone furoate 0.2 mg/actuat metered dose inhaler (7 sources) Corticosteroid Start: 07-21-2018 End: 07-26-2018 Mometasone [...] 10:19am ondansetron 4 mg disintegrating oral tablet (11 sources) Serotonin-3 Receptor Antagonist Start: 05-13-2024 End: 06-28-2024 take 1 tablet by mouth every eight hours as needed for nausea Ondansetron 4 mg tablet,disintegrating Discontinued 4 mg PO EVERY 8 HOURS NEEDED as needed for Nausea May 13, 2024 12:00am June 28, 2024 8:50am Start: 08-14-2023 End: 05-09-2024 take 1 tablet by mouth every eight hours as needed for nausea Ondansetron 4 mg tablet,disintegrating Discontinued 4 mg PO EVERY 8 HOURS NEEDED as needed for Nausea August 14, 2023 1:00am May 09, 2024 2:28pm permethrin 50 mg/ml topical cream (4 sources) Pyrethroid Start: 03-19-2024 End: 06-28-2024 Permethrin (Elimite) 5 % cream Discontinued 1 NMA TOPICAL Q14D 60 0 March 19, 2024 12:00am June 28, 2024 8:50am apply second treatment 7 days after first treatment predniSONE 20 mg oral tablet (12 sources) Start: 05-06-2024 End: 06-28-2024 take 2 [...] uth once daily for 5 days. Problems Active Problems Problem Classification Problem Date Documented Da te Episodic/Chronic Abdominal pain (14 sources) Acute abdominal pain; Translations: [Unspecified abdominal pain] 10-19-2020 Episodic Allergic reactions (15 sources) Eruption due to drug; Translations: [Generalized skin eruption due to drugs and medicaments taken internally] 06-25-2014 Episodic Anxiety disorders (18 sources) Generalized anxiety disorder; Translations: [Generalized anxiety disorder] Onset: 06-26-2024 06-26-2024 Chronic Asthma (20 sources) Uncomplicated asthma; Translations: [Unspecified asthma, uncomplicated] Onset: 10-20-2006 01-31-2017 Chronic Sidhu (4 sources) Partial thickness burn of skin of finger; Translations: [Burn of second degree of single right finger (nail) except thumb, initial encounter] Onset: 03-23-2025 03-16-2025 Episodic Cardiac dysrhythmias (15 sources) Tachycardia; Translations: [Tachycardia, unspecified] Onset: 04-23-2025 05-11-2024 Episodic Chronic obstructive pulmonary disease and bronchiectasis (7 sources) Bronchitis; Translations: [Bronchitis, not specified as acute or chronic] 07-18-2019 Episodic Diseases of mouth; excluding dental (1 source) Black hairy tongue; Translations: [Hypertrophy of tongue papillae] 05-11-2024 Episodic Disorders of lipid metabolism (1 source) Mixed hyperlipidemia; Translations: [Hyperlipidemia, mixed] Onset: 06-21-2025 Chronic Headache; including migraine (13 sources) Headache; Translations: [Headache, unspecified headache type] 05-11-2024 Episodic Immunizations and screening for infectious disease (1 source) Suspected disease caused by 2019-nCoV; Translations: [Suspected COVID-19 virus infection] Episodic Mood disorders (2 sources) Bipolar affective disorder, current episode mixed; Translations: [Bipolar disorder, current episode mixed, unspecified] Onset: 06-26-2024 06-26-2024 Chronic Nonspecific chest pain (8 sources) Chest pain; Translations: [Chest pain, unspecified] Onset: 2025 06-07-2023 Episodic Nutritional deficiencies (5 sources) Vitamin D deficiency; Translations: [Vitamin D deficiency, unspecified] Onset: 06-27-2024 06-27-2024 Chronic Other aftercare (3 sources) Wound ; Translations: [Encounter for other specified aftercare] 03-16-2025 Episodic Other aftercare (1 source) Other long term care pharmacist (current) drug therapy; Translations: [Medication management] Onset: 06-21-2025 Episodic Other and ill-defined heart disease (1 source) Right atrial enlargement; Translations: [Cardiomegaly] 05-11-2024 Chronic Other circulatory disease (4 sources) Elevated blood-pressure reading without diagnosis of hypertension; Translations: [Elevated blood-pressure reading, without diagnosis of hypertension] 05-17-2024 Episodic Other ear and sense organ disorders (1 source) Acute otitis externa of left ear; Translations: [Unspecified acute noninfective otitis externa, left ear] Episodic Other gastrointestinal disorders (15 sources) Diarrhea; Translations: [Diarrhea, unspecified] Episodic Other gastrointestinal disorders (1 source) Loose stool; Translations: [Other fecal abnormalities] Episodic Other injuries and conditions due to external causes (1 source) Injury of head; Translations: [Unspecified injury of head, subsequent encounter] 05-11-2024 Episodic Other lower respiratory disease (1 source) Cough; Translations: [Acute cough] Episodic Other lower respiratory disease (1 source) Wheezing; Translations: [Wheezing] Episodic Other lower respiratory disease (1 source) Lower respiratory tract infection; Translations: [Unspecified acute lower respiratory infection] 07-23-2024 Episodic Other screening for suspected conditions (not mental disorders or infectious disease) (10 sources) Patient encounter status; Translations: [Encounter for screening, unspecified] 05-18-2024 Episodic Other upper respiratory disease (11 sources) Allergic rhinitis; Translations: [Allergic rhinitis, unspecified] Onset: 07-22-2018 07-22-2018 Chronic Other upper respiratory disease (1 source) Nasal congestion; Translations: [Nasal congestion] Episodic Other upper respiratory infections (20 sources) Pharyngitis; Translations: [Acute pharyngitis, unspecified] 07-02-2023 Episodic Residual codes; unclassified (7 sources) Tobacco user; Translations: [Tobacco use] 05-05-2018 Episodic Residual codes; unclassified (2 sources) Tobacco use and exposure - finding; Translations: [Tobacco use] 05-11-2024 Episodic Sprains and strains (7 sources) Strain of back muscle; Translations: [Strain of muscle, fascia and tendon of lower back, initial encounter] 06-17-2016 Episodic Substance-related disorders (11 sources) Smoker; Translations: [Nicotine dependence, unspecified, uncomplicated] Onset: 07-22-2018 07-22-2018 Chronic Viral infection (12 sources) Viral disease; Translations: [Viral infection, unspecified] 07-02-2023 Episodic Past or Other Problems Problem Classification Problem Date Documented Da te Episodic/Chronic Residual codes; unclassified (1 source) Tobacco use; Translations: [Tobacco use] Onset: 06-26-2024 Episodic Results Test Name Value Interpretation Reference Range Facility 25(OH)D3 [facility] 2024 25-hydroxyvitamin D3 [Mass/Vol] 13.5 ng/mL Low 31.0-80.0 [facility] Comment on above: Order Comment: Speci men Type: BLOOD SPECIMEN Ordering Facility: [facility] Address: [address] [place] [address] Performed By: #### 1 989-3 #### [facility] CLIA [id number] [address] [place] [address] [place] CBC W Auto Differential pane l (Bld)on 06-21-2025 Basophils (Bld) [#/Vol] 0.04 10*3/uL Normal <0.11 [facility] Comment on above: Order Comment: Speci men Type: BLOOD SPECIMEN Ordering Facility: [facility] Address: [address] [place] [address] Performed By: #### 5 7021-8 #### [facility] CLIA [id number] [address] [place] [address] [place] Basophils/100 WBC (Bld) 1.0 % Normal [facility] Comment on above: Order Comment: Speci men Type: BLOOD SPECIMEN Ordering Facility: [facility] Address: [address] [place] [address] Performed By: #### 5 7021-8 #### [facility] CLIA [id number] [address] [place] [address] [place] Differential cell count method Nom (Bld) Auto Normal [facility] Comment on above: Order Comment: Speci men Type: BLOOD SPECIMEN Ordering Facility: [facility] Address: [address] [place] [address] Performed By: #### 5 7021-8 #### [facility] CLIA [id number] [address] [place] [address] [place] Eosinophils (Bld) [#/Vol] 0.05 10*3/uL Normal <0.46 [facility] Comment on above: Order Comment: Speci men Type: BLOOD SPECIMEN Ordering Facility: [facility] Address: [address] [place] [address] Performed By: #### 5 7021-8 #### [facility] CLIA [id number] [address] [place] [address] [place] Eosinophils/100 WBC (Bld) 1.2 % Normal [facility] Comment on above: Order Comment: Speci men Type: BLOOD SPECIMEN Ordering Facility: [facility] Address: [address] [place] [address] Performed By: #### 5 7021-8 #### [facility] CLIA [id number] [address] [place] [address] [place] Erythrocyte distribution width (RBC) [Ratio] 12.1 % Normal 11.5-15.0 [facility] Comment on above: Order Comment: Speci men Type: BLOOD SPECIMEN Ordering Facility: [facility] Address: [address] [place] [address] Performed By: #### 5 7021-8 #### [facility] CLIA [id number] [address] [place] [address] [place] Hematocrit (Bld) [Volume fraction] 46.1 % Normal 39.0-51.0 [facility] Comment on above: Order Comment: Speci men Type: BLOOD SPECIMEN Ordering Facility: [facility] Address: [address] [place] [address] Performed By: #### 5 7021-8 #### [facility] CLIA [id number] [address] [place] [address] [place] Hemoglobin (Bld) [Mass/Vol] 15.8 g/dL Normal 13.0-17.0 [facility] Comment on above: Order Comment: Speci men Type: BLOOD SPECIMEN Ordering Facility: [facility] Address: [address] [place] [address] Performed By: #### 5 7021-8 #### [facility] CLIA [id number] [address] [place] [address] [place] Immature granulocytes (Bld) [#/Vol] 10*3/uL Normal <0.10 [facility] Comment on above: Order Comment: Speci men Type: BLOOD SPECIMEN Ordering Facility: [facility] Address: [address] [place] [address] Performed By: #### 5 7021-8 #### [facility] CLIA [id number] [address] [place] [address] [place] Immature granulocytes/100 WBC (Bld) 0.2 % Normal [facility] Comment on above: Order Comment: Speci men Type: BLOOD SPECIMEN Ordering Facility: [facility] Address: [address] [place] [address] Performed By: #### 5 7021-8 #### [facility] CLIA [id number] [address] [place] [address] [place] Lymphocytes (Bld) [#/Vol] 1.97 10*3/uL Normal 1.00-4.00 [facility] Comment on above: Order Comment: Speci men Type: BLOOD SPECIMEN Ordering Facility: [facility] Address: [address] [place] [address] Performed By: #### 5 7021-8 #### [facility] CLIA [id number] [address] [place] [address] [place] Lymphocytes/100 WBC (Bld) 47.8 % Normal [facility] Comment on above: Order Comment: Speci men Type: BLOOD SPECIMEN Ordering Facility: [facility] Address: [address] [place] [address] Performed By: #### 5 7021-8 #### [facility] CLIA [id number] [address] [place] [address] [place] MCH (RBC) [Entitic mass] 30.9 pg Normal 26.0-34.0 [facility] Comment on above: Order Comment: Speci men Type: BLOOD SPECIMEN Ordering Facility: [facility] Address: [address] [place] [address] Performed By: #### 5 7021-8 #### [facility] CLIA [id number] [address] [place] [address] [place] MCHC (RBC) [Mass/Vol] 34.3 g/dL Normal 30.5-36.0 [facility] Comment on above: Order Comment: Speci men Type: BLOOD SPECIMEN Ordering Facility: [facility] Address: [address] [place] [address] Performed By: #### 5 7021-8 #### [facility] CLIA [id number] [address] [place] [address] [place] MCV (RBC) [Entitic vol] 90.2 fL Normal 80.0-100.0 [facility] Comment on above: Order Comment: Speci men Type: BLOOD SPECIMEN Ordering Facility: [facility] Address: [address] [place] [address] Performed By: #### 5 7021-8 #### [facility] CLIA [id number] [address] [place] [address] [place] Monocytes (Bld) [#/Vol] 0.24 10*3/uL Normal <0.87 [facility] Comment on above: Order Comment: Speci men Type: BLOOD SPECIMEN Ordering Facility: [facility] Address: [address] [place] [address] Performed By: #### 5 7021-8 #### [facility] CLIA [id number] [address] [place] [address] [place] Monocytes/100 WBC (Bld) 5.8 % Normal [facility] Comment on above: Order Comment: Speci men Type: BLOOD SPECIMEN Ordering Facility: [facility] Address: [address] [place] [address] Performed By: #### 5 7021-8 #### [facility] CLIA [id number] [address] [place] [address] [place] Neutrophils (Bld) [#/Vol] 1.81 10*3/uL Normal 1.45-7.50 [facility] Comment on above: Order Comment: Speci men Type: BLOOD SPECIMEN Ordering Facility: [facility] Address: [address] [place] [address] Performed By: #### 5 7021-8 #### [facility] CLIA [id number] [address] [place] [address] [place] Neutrophils/100 WBC (Bld) 44.0 % Normal [facility] Comment on above: Order Comment: Speci men Type: BLOOD SPECIMEN Ordering Facility: [facility] Address: [address] [place] [address] Performed By: #### 5 7021-8 #### [facility] CLIA [id number] [address] [place] [address] [place] Nucleated RBC (Bld) [#/Vol] 10*3/uL Normal <0.01 [facility] Comment on above: Order Comment: Speci men Type: BLOOD SPECIMEN Ordering Facility: [facility] Address: [address] [place] [address] Performed By: #### 5 7021-8 #### [facility] CLIA [id number] [address] [place] [address] [place] Nucleated RBC/100 WBC (Bld) [Ratio] 0.0 /100 WBC Normal [facility] Comment on above: Order Comment: Speci men Type: BLOOD SPECIMEN Ordering Facility: [facility] Address: [address] [place] [address] Performed By: #### 5 7021-8 #### [facility] CLIA [id number] [address] [place] [address] [place] Platelet mean volume (Bld) [Entitic vol] 9.8 fL Normal 9.0-12.7 [facility] Comment on above: Order Comment: Speci men Type: BLOOD SPECIMEN Ordering Facility: [facility] Address: [address] [place] [address] Performed By: #### 5 7021-8 #### [facility] CLIA [id number] [address] [place] [address] [place] Platelets (Bld) [#/Vol] 223 10*3/uL Normal 150-400 [facility] Comment on above: Order Comment: Speci men Type: BLOOD SPECIMEN Ordering Facility: [facility] Address: [address] [place] [address] Performed By: #### 5 7021-8 #### [facility] CLIA [id number] [address] [place] [address] [place] RBC (Bld) [#/Vol] 5.11 10*6/uL Normal 4.20-6.00 [facility] Comment on above: Order Comment: Speci men Type: BLOOD SPECIMEN Ordering Facility: [facility] Address: [address] [place] [address] Performed By: #### 5 7021-8 #### [facility] CLIA [id number] [address] [place] [address] [place] WBC (Bld) [#/Vol] 4.12 10*3/uL Normal 3.70-11.00 [facility] Comment on above: Order Comment: Speci men Type: BLOOD SPECIMEN Ordering Facility: [facility] Address: [address] [place] [address] Performed By: #### 5 7021-8 #### [facility] CLIA [id number] [address] [place] [address] [place] CNOVon 06-21-2025 CNOV Office Visit (FAMPWS ) REYNALDO ADDISON ([id number]) 1995 M Date Time Provider Department 06/21/25 11:00 AM LIVIER FRENCH During your visit today, we recorded the following information about you: Pulse Blood pressure Weight 108/minute 123/80 48 kg Livier French APRN.CNP 06/21/2025 11:18 AM Signed Chief Complaint Patient presents with: Physical HPI Reynaldo Addison is a 30 year old male who presents here today for Above Complaints. Patient presents for annual physical. Reports hx of panic attacks and HR is extremely high during these periods. Reports father had heart attack in 50's and this causes a lot of anxiety when his HR is high. Patient reports he currently sees a psychiatrist at the [facility]. Past medical history, appointments, medications, allergies reviewed. Previous Medical History PAST MEDICAL HISTORY Diagnosis Date Allergic rhinitis, unspecified 07/22/[address] Gomez Bipolar disorder ([facility]) Black hairy tongue Depression Edentulous Headache NEGATIVE MEDICAL HISTORY normal color vision PMH - PAST MEDICAL HISTORY OF spinal meningitis at 12 months Smoker 07/22/2018 Tobacco use disorder Vitamin B12 deficiency Vitamin D deficiency Previous Surgical History PAST SURGICAL HISTORY Procedure Laterality Date CIRCUMCISION,CLAMP,NE WBORN Family History FAMILY HISTORY Problem Relation Age of Onset Stroke Mother Diabetes Mother Asthma Mother Hyperlipidemia Mother Hypertension Mother Heart Attack Father 56 No Known Problems Sister No Known Problems Brother No Known Problems Brother Asthma Maternal Grandmother Diabetes Maternal Grandmother Diabetes Maternal Uncle No Known Problems Daughter Patient Allergies ALLERGIES Allergen Reactions Cats Shortness of Breath Patient reported allergy on 05/11/24 Penicillins Hives Eggs [Egg] Rash Current Medications Current Outpatient Medications on File Prior to Visit Medication Sig amitriptyline (ELAVIL) 10 mg tablet Take 1 tablet every day by oral route at bedtime. buPROPion (WELLBUTRIN) 75 mg tablet ergocalciferol 50,000 unit capsule (VITAMIN D2, DRISDOL) Take 1 capsule by mouth one time a week. (Patient not taking: Reported on 07/23/2024) propranolol (INDERAL) 10 mg tablet venlafaxine ER [...] for wheezing/shortness of breath. Use over 5-15minutes. No current facility-administered medications on file prior to visit. Social History SOCIAL HISTORY[1] Review of Symptoms REVIEW OF SYSTEMS SEE HPI EXAM: BP 123/80 Pulse 108 Wt 48 kg (105 lb 13.1 oz) BMI 17.50 kg/m? General Appearance: Well appearing, alert, in no acute distress, well-hydrated, well nourished. Skin: Skin color, texture, turgor normal, no suspicious rashes or lesions. Lungs: Lungs clear to auscultation. No wheezing, rhonchi, rales.. Heart: RRR without murmur, gallop, or rubs. No ectopy. Abdomen: Normal abdominal exam, Abdomen soft, non-tender. Bowel sounds normal. No masses, organomegaly. Musculoskeletal: No joint swelling, deformity, or tenderness. Peripheral Pulses: Normal. Neurologic: Gait normal. Reflexes normal and symmetric. Sensation grossly intact. Health Maintenance List HPV Vaccine(1 - 3-dose SCDM series) Never done Influenza Vaccine(1) due on 06/04/2025 Depression Screening due on 06/26/2025 Anxiety Screening due on 06/26/2025 DTaP,Tdap,Td Vaccine(7 - Td or Tdap) due on 06/26/2025 Hepatitis C Screening due on 06/26/2025 HIV Screening due on 06/26/2025 Pneumococcal Vaccine(1 of 2 - PCV) due on 06/26/2025 Annual PCP Team Chronic Disease Visit due on 06/26/2025 Hepatitis B Vaccine Completed ASSESSMENT/PLAN: 1. Wellness examination - ICD9: V70.0, ICD10: Z00.00 (primary diagnosis) - Counseled on healthy diet and regular exercise - Follow up for annual exam in one year 2. TERI (generalized anxiety disorder) - ICD9: 300.02, ICD10: F41.1 -Continue current medication -Follow up with Psychiatry for increased anxiety 3. Bipolar affective disorder, current episode mixed, current episode severity unspecified (HCC) - ICD9: 296.60, ICD10: F31.60 -Continue current medication -Follow up with Psychiatry for increased anxiety 4. Tachycardia - ICD9: 785.0, ICD10: R00.0 -Likely anxiety induced 5. Vitamin D deficiency - ICD9: 268.9, ICD10: E55.9 - VITAMIN D 25 HYDROXY 6. Medication management - ICD9: V58.6 (more content not included)... Normal [facility] Comprehensive metabolic 2000 panelon 06-21-2025 Albumin [Mass/Vol] 5.0 g/dL High 3.9-4.9 [facility] Comment on above: Order Comment: Speci men Type: BLOOD SPECIMEN Ordering Facility: [facility] Address: [address] [place] [address] Performed By: #### 3 016-3, 2132-06, LIPNF, #### [facility] CLIA [id number] [address] [place] [address] [place] ALP [Catalytic activity/Vol] 74 U/L Normal 38-113 [facility] Comment on above: Order Comment: Speci men Type: BLOOD SPECIMEN Ordering Facility: [facility] Address: [address] [place] [address] Performed By: #### 3 016-3, 2132-06, LIPNF, #### [facility] CLIA [id number] [address] [place] [address] [place] ALT [Catalytic activity/Vol] 24 U/L Normal 10-54 [facility] Comment on above: Order Comment: Speci men Type: BLOOD SPECIMEN Ordering Facility: [facility] Address: [address] [place] [address] Performed By: #### 3 016-3, 2132-06, LIPNF, #### [facility] CLIA [id number] [address] [place] [address] [place] Anion gap [Moles/Vol] 13 mmol/L Normal 8-15 [facility] Comment on above: Order Comment: Speci men Type: BLOOD SPECIMEN Ordering Facility: [facility] Address: [address] [place] [address] Performed By: #### 3 016-3, 2132-06, LIPNF, #### [facility] CLIA [id number] [address] [place] [address] [place] AST [Catalytic activity/Vol] 27 U/L Normal 14-40 [facility] Comment on above: Order Comment: Speci men Type: BLOOD SPECIMEN Ordering Facility: [facility] Address: [address] [place] [address] Performed By: #### 3 016-3, 2132-06, LIPNF, #### [facility] CLIA [id number] [address] [place] [address] [place] Bilirubin [Mass/Vol] 0.7 mg/dL Normal 0.2-1.3 [facility] Comment on above: Order Comment: Speci men Type: BLOOD SPECIMEN Ordering Facility: [facility] Address: [address] [place] [address] Performed By: #### 3 016-3, 2132-06, LIPNF, #### [facility] CLIA [id number] [address] [place] [address] [place] Calcium [Mass/Vol] 9.7 mg/dL Normal 8.5-10.2 [facility] Comment on above: Order Comment: Speci men Type: BLOOD SPECIMEN Ordering Facility: [facility] Address: [address] [place], [place] [address] Performed By: #### 3 016-3, 2132-06, LIPNF, #### [facility] CLIA [id number] [address] [place], [place] [address] [place] Chloride [Moles/Vol] 101 mmol/L Normal 98-107 [facility] Comment on above: Order Comment: Speci men Type: BLOOD SPECIMEN Ordering Facility: [facility] Address: [address] [place] [address] Performed By: #### 3 016-3, 2132-06, LIPNF, #### [facility] CLIA [id number] [address] [place] [address] [place] CO2 [Moles/Vol] 27 mmol/L Normal 22-30 [facility] Comment on above: Order Comment: Speci men Type: BLOOD SPECIMEN Ordering Facility: [facility] Address: [address] [place] [address] Performed By: #### 3 016-3, 2132-06, LIPNF, #### [facility] CLIA [id number] [address] [place] [address] [place] Creatinine [Mass/Vol] 0.79 mg/dL Normal 0.73-1.22 [facility] Comment on above: Order Comment: Speci men Type: BLOOD SPECIMEN Ordering Facility: [facility] Address: [address] [place] [address] Performed By: #### 3 016-3, 2132-06, LIPNF, #### [facility] CLIA [id number] [address] [place] [address] [place] eGFRcr SerPlBld CKD-EPI 2020 123 mL/min/1.73m??? Normal >=60 [facility] Comment on above: Order Comment: Speci men Type: BLOOD SPECIMEN Ordering Facility: [facility] Address: [address] [place] [address] Result Comment: Davida mated Glomerular Filtration Rate [...] accurately reflect actual GFR. Performed By: #### 3 016-3, 2132-06, LIPFRANKIE, 38340-6 #### [facility] CLIA [id number] [address] [place] [address] [place] Glucose [Mass/Vol] 103 mg/dL High 74-99 [facility] Comment on above: Order Comment: Speci men Type: BLOOD SPECIMEN Ordering Facility: [facility] Address: [address] [place] [address] Result Comment: The [place] Diabetes Association (ADA) provides guidance for cutoff [...] Standards of Medical Care in Diabetes 2016, [place] Diabetes Association. Diabetes Care. 2016.39(Suppl 1). Performed By: #### 3 016-3, 2132-06, LIPFRANKIE, 10451-5 #### [facility] CLIA [id number] [address] [place] [address] [place] Potassium [Moles/Vol] 3.8 mmol/L Normal 3.7-5.1 [facility] Comment on above: Order Comment: Speci men Type: BLOOD SPECIMEN Ordering Facility: [facility] Address: [address] [place] [address] Performed By: #### 3 016-3, 2132-06, LIPFRANKIE, 40015-8 #### [facility] CLIA [id number] [address] [place] [address] [place] Protein [Mass/Vol] 8.3 g/dL High 6.3-8.0 [facility] Comment on above: Order Comment: Speci men Type: BLOOD SPECIMEN Ordering Facility: [facility] Address: [address] [place], [place] [address] Performed By: #### 3 016-3, 2132-06, LIPNF, #### [facility] CLIA [id number] [address] [place], [place] [address] [place] Sodium [Moles/Vol] 141 mmol/L Normal 136-144 [facility] Comment on above: Order Comment: Speci men Type: BLOOD SPECIMEN Ordering Facility: [facility] Address: [address] [place] [address] Performed By: #### 3 016-3, 2132-06, LIPNF, #### [facility] CLIA [id number] [address] [place] [address] [place] Urea nitrogen [Mass/Vol] 10 mg/dL Normal 9-24 [facility] Comment on above: Order Comment: Speci men Type: BLOOD SPECIMEN Ordering Facility: [facility] Address: [address] [place] [address] Performed By: #### 3 016-3, 2132-06, LIPNF, #### [facility] CLIA [id number] [address] [place] [address] [place] LIPID PANEL, NONFASTINGon Cholesterol [Mass/Vol] 186 mg/dL Normal <200 [facility] Comment on above: Order Comment: Speci men Type: BLOOD SPECIMEN Ordering Facility: [facility] Address: [address] [place], [place] [address] Result Comment: <200 mg/dL, Desirable 200-239 mg/dL, Borderline high >239 mg/dL, High Performed By: #### 3 016-3, 2132-06, LIPNF, #### [facility] CLIA [id number] [address] [place], [place] [address] [place] HDL CHOLESTEROL, NF 34 mg/dL Low >39 [facility] Comment on above: Order Comment: Speci men Type: BLOOD SPECIMEN Ordering Facility: [facility] Address: [address] [place] [address] Result Comment: 40-5 9 mg/dL, Acceptable >59 mg/dL, High: Negative risk factor for coronary heart disease <40 mg/dL, Low: Positive risk factor for coronary heart disease Performed By: #### 3 016-3, 2132-06, LIPNF, 05108-2 #### [facility] CLIA [id number] [address] [place] [address] OF [facility] LDL CHOLESTEROL CALCULATED, NF 139 mg/dL High <100 [facility] Comment on above: Order Comment: Kacyfranck reeder Type: BLOOD SPECIMEN Ordering Facility: [facility] Address: [address] [place] [address] Result Comment: <100 mg/dL, Optimal 100-129 mg/dL, Near optimal/above optimal 130-159 mg/dL, Borderline high 160-189 mg/dL, High >189 mg/dL, Very high Secondary prevention optimal LDL Cholesterol levels are recommended to be <70 mg/dL LDL cholesterol is calculated using the Wong-NIH equation. Performed By: #### 3 016-3, 2132-06, LIPNF, 28807-1 #### [facility] CLIA [id number] [address] [place] [address] OF [facility] LDL/HDL RATIO, NF 4.09 mg/dL High <2.54 [facility] Comment on above: Order Comment: Mervat reeder Type: BLOOD SPECIMEN Ordering Facility: [facility] Address: [address] [place] [address] Result Comment: Refe rence: 1. National Cholesterol Education Program ATP III Guideline At-A-Glance Quick Desk Reference: National Heart, Lung, and Blood Burkett. National Institutes of Health. 2001: NIH Publication No. 01-3305. 2. An International Atherosclerosis Society position paper: global recommendations for the management of dyslipidemia: executive summary, Atherosclerosis. 2014: 232(2):410-413. Performed By: #### 3 016-3, 2132-06, LIPNF, 31904-0 #### [facility] CLIA [id number] [address] [place] [address] [place] NON HDL CHOL, NF 152 mg/dL High <130 [facility] Comment on above: Order Comment: Speci men Type: BLOOD SPECIMEN Ordering Facility: [facility] Address: [address] [place] [address] Result Comment: <130 mg/dL, Optimal 130-159 mg/dL, Near optimal/above optimal 160-189 mg/dL, Borderline high 190-219 mg/dL, High >219 mg/dL, Very high Secondary prevention optimal non HDL Cholesterol levels are recommended to be <100 mg/dL Performed By: #### 3 016-3, 2132-06, LIPNF, 20672-5 #### [facility] CLIA [id number] [address] [place] [address] [place] T CHOL/HDL RATIO NF 5.47 mg/dL High <5.10 [facility] Comment on above: Order Comment: Speci men Type: BLOOD SPECIMEN Ordering Facility: [facility] Address: [address] [place] [address] Performed By: #### 3 016-3, 2132-06, LIPNF, 11924-6 #### [facility] CLIA [id number] [address] [place] [address] [place] TRIGLYCERIDES, NF 67 mg/dL Normal <150 [facility] Comment on above: Order Comment: Speci men Type: BLOOD SPECIMEN Ordering Facility: [facility] Address: [address] [place] [address] Result Comment: <150 mg/dL, Normal 150-199 mg/dL, Borderline high 200-499 mg/dL, High >499 mg/dL, Very high Performed By: #### 3 016-3, 2132-06, LIPNF, 36853-3 #### [facility] CLIA [id number] [address] [place] [address] [place] VLDL CHOLESTEROL, NF 12 mg/dL Normal <30 [facility] Comment on above: Order Comment: Speci men Type: BLOOD SPECIMEN Ordering Facility: [facility] Address: [address] [place] [address] Performed By: #### 3 016-3, 2132-06, LIPNF, #### [facility] CLIA [id number] [address] [place] [address] OF [facility] TSH SerPl-aCncon 06-21-2025 TSH Qn 1.300 m[IU]/L Normal 0.270-4.200 [facility] Comment on above: Order Comment: Speci men Type: BLOOD SPECIMEN Ordering Facility: [facility] Address: [address] [place] [address] Performed By: #### 3 016-3, 2132-06, LIPNF, #### [facility] CLIA [id number] [address] [place] [address] OF [place] Vit B12 SerPl-mCncon 025 Cobalamin (Vitamin B12) [Mass/Vol] 296 pg/mL Normal 232-1245 [facility] Comment on above: Order Comment: Speci men Type: BLOOD SPECIMEN Ordering Facility: [facility] Address: [address] [place] [address] Performed By: #### 3 016-3, 2132-06, LIPNF, #### [facility] CLIA [id number] [address] [place] [address] [place] 12 Lead EKGon 06-16-2025 12 Lead EKG [facility] Services [address] [place] [address] 12 Lead EKG 06/16/25 2156 MR#: [id number] Acct: [id number] Name: REYNALDO ADDISON III Rep #: [id number] : 1995 29 From: Brian Amaya MD Attending Dr: Status: DEP ER Ordering Dr: Kendrick Page MD Date: 06/16/25 Location: ED Sex: M C Admitted: Test Reason : DYSRHYTHMIA Blood Pressure : */* mmHG Vent. Rate : 81 BPM Atrial Rate : 81 BPM P-R Int : 140 ms QRS Dur : 78 ms QT Int : 344 ms P-R-T Axes : 74 78 67 degrees QTcB Int : 399 ms Normal sinus rhythm NORMAL Confirmed by Brian Amaya ([id number]), brands editor BASHIR MAIN ([id number]) on 2025 1:20:22 PM Referred By: Confirmed By: Brian Amaya 06/18/25 1320 Date Brian Amaya MD CC: Dr. Moustapha Gtz MD; Dr. Kendrick Page MD Signed Normal [facility] Emergency Department Summary on 06-16-2025 Emergency Department Summary [facility] Medical Records Department [address] [place] [address] Emergency Department Summary 06/16/25 MR#: [id number] Acct: [id number] Name: REYNALDO ADDISON III Rep #: [id number] : 1995 29 From: Kendrick Page MD PCP: Dr. Moustapha Gtz MD Status:REG ER Location: ED HPI HPI - Psych History of Present Illness Chief Complaint: Anxiety Detail of Chief Complaint: Chest pain due to anxiety, work was super hectic . Informant: patient Onset/Context/Timing Onset: Today Context: Sudden Onset Timing: Intermittent and Waxes and wanes Current Severity: Mild Maximum Severity: Severe Worsened by: Situational factors (Patient works at [employer] and it was super hectic .) Relieved by: Nothing. Patient declined to take Xanax that he was prescribed Associated Symptoms Associated Symptoms - Psych: Positive for Depressed and - (Palpitations and feeling stressed); Negative for Change in Eating, Change in sleeping, Decreased Interest, Guilt, Decreased Concentration, Hopelessness, Suicidal Thoughts, Easily distracted, Grandiosity, Flight of Ideas, Increased activity, Pressured Speech, Agitated, Paranoia, Visual Hallucinations or Auditory Hallucinations Specific plan (suicidal thought): Not applicable Narrative Narrative: patient is a 29-year-old male. He has history of anxiety disorder, asthma, tobacco use. He presents because of palpitations that started this morning's been intermittent. It is worse when he is under more stress at work. He denied diaphoresis, shortness of breath, nausea or vomiting. He denies headache, visual, ocular auditory symptoms. He denies abdominal pain, vomiting or diarrhea. He denies paresthesia, anesthesia or motor weakness. Patient denies chest tightness, pressure, heaviness or sharp dull sensation. The discomfort is feeling his heart beat. Prior similar symptoms: Yes Recent Illness/Hospitalizati on: No PFSH [facility] Medical History Anxiety Tobacco abuse Asthma Home Medications ???Medication ???Instructions ???Recorded ???Last Taken ???Type buspirone 7.5 mg tablet 7.5 mg PO BID 04/18/25 Unknown His tory alprazolam 0.25 mg tablet 0.25 mg PO DAILY PRN anxiety 06/16 Unknown History mirtazapine 15 mg tablet 7.5 mg PO DAILY 06/16/25 Unknown H istory Allergy/AdvReac Type Severity Reaction Status Date / Time cat dander (cats) Allergy Intermediate Inflammation Verified 06/16/25 21:36 of lung egg Allergy Rash Verified 06/16/25 21:36 Penicillins Allergy Rash Verified 06/16/25 21:36 Family History Father Heart disease Social History household members: significant other housing: apartment Smoking Status: Heavy Smoker (>10/day) ROS ROS ED Constitutional Constitutional ED: Denies chills, fever(s), subjective or sweats Eyes Eyes: Denies blurry vision or change in vision ENT ENT ED: Denies rhinorrhea or sore throat Cardiovascular Cardiovascular: Reports palpitations; Denies chest pain or racing heartbeat Respiratory/Chest Respiratory/Chest: Denies cough, dyspnea or dyspnea on exertion Gastrointestinal Gastrointestinal: Denies abdominal pain, nausea or vomiting Neurologic Neurologic: Denies paresthesias or weakness Psychiatric Psychiatric: Reports anxiety; Denies suicidal ideation or suicidal thoughts EXAM Physical Exam Const Vital Signs: 06/16/25 21:34 06/16/25 21:46 Temperature 98.0 F Temperature Source Temporal Pulse Rate 84 Respiratory Rate 16 Respiratory Effort Normal Blood Pressure 113/70 Blood Pressure Mean 84 Pulse Ox 100 Oxygen Delivery Method Room Air Positive well nourished and well developed Constitutional Narrative: Affect is flat. Vital signs are normal. General Appearance ED: well developed HEENT Reports moist mucous membranes normocephalic and atraumatic Eyes PERRL and EOMs intact bilaterally General Eye ED: Negative for pale conjunctiva or scleral icterus Neck no lymphadenopathy, supple and no JVD Resp normal respiratory effort and clear to auscultation bilaterally Cardio S1 normal heart sound, S2 normal heart sound and no murmurs Rate: regular rate Rhythm: regular rhythm GI non-tender, non-distended and no masses Auscultation: normoactive bowel sounds Palpation: soft Extremity normal to inspection General Extremety ED: Negative for edema or tenderness General Extremity: Negative for edema Neuro oriented x3, CN's II-XII intact bilaterally and no sensory deficits noted Sensorium / Orientation: alert Motor Exam: strength 5/5 throughout Psych mental status grossly normal, thought process normal, cooperative, speech normal, de (more content not included)... Normal [facility] Emergency Department Summary on 04-18-2025 Emergency Department Summary [facility] Medical Records Department [address] [place] [address] Emergency Department Summary 04/18/25 MR#: [id number] Acct: [id number] Name: REYNALDO ADDISON III Rep #: [id number] : 1995 29 From: Kendrick Page MD [...] anxiety and depression. Patient presently works at [employer]. He is scheduled to start a new job at [employer]. He is waiting for information regarding training. [...] medical sc (more content not included)... Normal [facility] Emergency Department Summary on 03-16-2025 Emergency Department Summary [facility] Medical Records Department [address] [place] [address] Emergency Department Summary 03/16/25 MR#: [id number] Acct: [id number] Name: REYNALDO ADDISON III Rep #: [id number] : 1995 29 From: Chung Vallejo MD PCP: Dr. Moustapha Gtz MD Status:REG ER Location: ED HPI History of Present Illness Chief Complaint: Burn Informant: patient Narrative Narrative: Patient states he works at [employer] and he sustained a small burn to [...] not have any pain or significant discharge. PFSH PFS Medical History Anxiety Tobacco abuse [...] of Physicians] - As Needed Print Language: Malagasy Disposition Disposition: Home, Self Care What to do if you have Problems For any increased pain, shortness of breath, bleeding, nausea or vomiting, chest pain, or any unexpected problems, contact your Primary Care Provider. Call [facility] ([phone]) or report to the closest Emergency Room. Call 911 if necessary. 03/16/25 9710 Cosigner Signature (if applicable): CC: Dr. Moustapha Gtz MD Signed Normal [facility] Emergency Department Summary on 01-11-2025 Emergency Department Summary [facility] Medical Records Department [address] [place] [address] Emergency Department Summary 01/11/25 MR#: [id number] Acct: [id number] Name: REYNALDO ADDISON III Rep #: [id number] : 1995 29 From: Charla Sepulveda DO [...] lot (works 10 to 12-hour shifts at [employer] and it has been stressful). States he [...] shortness of breath, nausea, vomiting or diarrhea. [facility] Medical History Anxiety Tobacco abuse Asthma Home [...] Care Pr (more content not included)... Normal [facility] 12 Lead EKGon 11-05-2024 12 Lead EKG [facility] Cardiovascular Services [address] [place] [address] 12 Lead EKG 11/05/24 1827 MR#: [id number] Acct: [id number] Name: REYNALDO ADDISON III Rep #: [id number] : 1995 29 From: Graham Dickey MD [...] ECG Confirmed by GRAHAM DICKEY MD ([id number]), brands editor BASHIR MAIN ([id number]) on 11/06/2024 8:24:42 AM Referred By: Confirmed By: GRAHAM DICKEY MD 11/06/24 0824 Date Graham Dickey MD CC: Dr. Moustapha Gtz MD; Dr. David Lomax, DO Signed Normal [facility] Absolute neutrophil countOrd ered By: David Lomax on 11-05-2024 Neutrophils (Bld) [#/Vol] 2.4 10*3/uL 2.0-7.7 [facility] Basic Metabolic Profile (BMP )on 11-05-2024 BUN/CRE 11.6 RATIO Normal 10-20 [facility] Comment on above: Performed By: #### L 100.0100, L500.2500 #### [facility] [address] [place], [address] CA,Total 9.1 mg/dL Normal 8.5-10.1 [facility] Comment on above: Performed By: #### L 100.0100, L500.2500 #### [facility] [address] [place], [address] Chloride [Moles/Vol] 106 mmol/L Normal 98-107 [facility] Comment on above: Performed By: #### L 100.0100, L500.2500 #### [facility] [address] [place], [address] CO2 [Moles/Vol] 25.0 mmol/L Normal 21.0-32.0 [facility] Comment on above: Performed By: #### L 100.0100, L500.2500 #### [facility] [address] [place], [address] Creatinine [Mass/Vol] 0.86 mg/dL Normal 0.70-1.30 [facility] Comment on above: Result Comment: The validity of the calculated GFR GFRAA in patients over 70 years has not been determined. Clinical correlation is essential. Performed By: #### L 100.0100, L500.2500 #### [facility] [address] [place], [address] ECRCL 85.38 ml/min Normal [facility] Comment on above: Performed By: #### L 100.0100, L500.2500 #### [facility] [address] [place], [address] EST GFR - AA 135 mL/min Normal >60 [facility] Comment on above: Result Comment: Afri can [place] GFR Calc Performed By: #### L 100.0100, L500.2500 #### [facility] [address] [place], [address] GAP 7 Normal 5-15 [facility] Comment on above: Performed By: #### L 100.0100, L500.2500 #### [facility] [address] [place], [address] GFR/1.73 sq M.predicted among non-blacks MDRD (S/P/Bld) [Vol rate/Area] 112 mL/min/{1.73_m2} Normal >60 [facility] Comment on above: Result Comment: Non- GFR Calc Performed By: #### L 100.0100, L500.2500 #### [facility] [address] [place], [address] Glucose [Mass/Vol] 102 mg/dL Normal 74-106 [facility] Comment on above: Result Comment: Fast ing Glucose result from 100 to 125 mg/dL suggests IMPAIRED HOMEOSTASIS per A.D.A. criteria. Performed By: #### L 100.0100, L500.2500 #### [facility] [address] [place], [address] Potassium [Moles/Vol] 4.4 mmol/L Normal 3.5-5.1 [facility] [place] Comment on above: Performed By: #### L 100.0100, L500.2500 #### [facility] [address], [address] Sodium [Moles/Vol] 138 mmol/L Normal 136-145 [facility] Comment on above: Performed By: #### L 100.0100, L500.2500 #### [facility] [address] [place], [address] Urea nitrogen [Mass/Vol] 10 mg/dL Normal 7-18 [facility] Comment on above: Performed By: #### L 100.0100, L500.2500 #### [facility] [address] [place], [address] Basophil percentageOrdered B y: David Lomax on 11-05-2024 Basophils/100 WBC (Bld) 0.8 % 0-1 [facility] Blood urea nitrogen (BUN)/cr eatinine ratioOrdered By: David Lomax on 11-05-2024 Urea nitrogen/Creatinine [Mass ratio] 11.6 mg/mg 10-20 [facility] CBC W/Diff, Automatedon 02 Absolute Lymph 1.24 X10 3/uL Normal 0.83-4.51 [facility] Comment on above: Performed By: #### L 100.0100, L500.2500 #### [facility] [address] [place], [address] Absolute Neut 2.4 X10 3/uL Normal 2.0-7.7 [facility] Comment on above: Performed By: #### L 100.0100, L500.2500 #### [facility] [address] [place], [address] Basophils/100 WBC (Bld) 0.8 % Normal 0-1 [facility] Comment on above: Performed By: #### L 100.0100, L500.2500 #### [facility] [address] [place], [address] Eosinophils/100 WBC (Bld) 0.3 % Normal 0-5 [facility] Comment on above: Performed By: #### L 100.0100, L500.2500 #### [facility] [address] [place], [address] Erythrocyte distribution width (RBC) [Ratio] 12.2 % Normal 11.6-14.6 [facility] Comment on above: Performed By: #### L 100.0100, L500.2500 #### [facility] [address] [place], [address] Hematocrit (Bld) [Volume fraction] 46.8 % Normal 40-54 [facility] Comment on above: Performed By: #### L 100.0100, L500.2500 #### [facility] [address] [place], [address] Hemoglobin (Bld) [Mass/Vol] 16.2 g/dL Normal 13.0-16.5 [facility] Comment on above: Performed By: #### L 100.0100, L500.2500 #### [facility] [address] [place], [address] IG% 0.000 Normal 0.0-0.9 [facility] Comment on above: Result Comment: IG% - Immature Granulocytes (promyelocytes, myelocytes and metamyelocytes) > 1% indicates that a LEFT SHIFT is Present. Performed By: #### L 100.0100, L500.2500 #### [facility] [address] [place], [address] Lymphocytes/100 WBC (Bld) 32.3 % Normal 19-41 [facility] Comment on above: Performed By: #### L 100.0100, L500.2500 #### [facility] [address] [place], [address] MCH (RBC) [Entitic mass] 31.6 pg Normal 27.0-32.0 [facility] Comment on above: Performed By: #### L 100.0100, L500.2500 #### [facility] [address] [place], [address] MCHC (RBC) [Mass/Vol] 34.6 g/dL Normal 32-36 [facility] [place] Comment on above: Performed By: #### L 100.0100, L500.2500 #### [facility] [address] [place], [address] MCV (RBC) [Entitic vol] 91.4 fL Normal 80-94 [facility] Comment on above: Performed By: #### L 100.0100, L500.2500 #### [facility] [address] [place], [address] Monocytes/100 WBC (Bld) 5.5 % Normal 0-10 [facility] Comment on above: Performed By: #### L 100.0100, L500.2500 #### [facility] [address] [place], [address] Neutrophils/100 WBC (Bld) 61.1 % Normal 47-70 [facility] Comment on above: Performed By: #### L 100.0100, L500.2500 #### [facility] [address] [place], [address] Nucleated RBC (Bld) [#/Vol] 0 10*3/uL Normal 0-5 [facility] Comment on above: Performed By: #### L 100.0100, L500.2500 #### [facility] [address] [place], [address] Platelet mean volume (Bld) [Entitic vol] 9.3 fL Normal 6.2-12.0 [facility] Comment on above: Performed By: #### L 100.0100, L500.2500 #### [facility] [address] [place], [address] Platelets (Bld) [#/Vol] 207 10*3/uL Normal 150-450 [facility] Comment on above: Performed By: #### L 100.0100, L500.2500 #### [facility] [address] [place], [address] RBC (Bld) [#/Vol] 5.12 10*6/uL Normal 4.6-6.2 [facility] Comment on above: Performed By: #### L 100.0100, L500.2500 #### [facility] [address] [place], [address] RDW SD 40.9 fl Normal 35.1-43.9 [facility] Comment on above: Performed By: #### L 100.0100, L500.2500 #### [facility] [address] [place], [address] WBC (Bld) [#/Vol] 3.8 10*3/uL Low 4.4-11.0 [facility] Comment on above: Performed By: #### L 100.0100, L500.2500 #### [facility] [address] [place], [address] Carbon dioxide measurementOr dered By: David Lomax on 11-05-2024 CO2 [Moles/Vol] 25.0 mmol/L 21.0-32.0 [facility] Chloride measurementOrdered By: David Lomax on 11-05-2024 Chloride [Moles/Vol] 106 mmol/L 98-107 [facility] Emergency Department Summary on 11-05-2024 Emergency Department Summary [facility] Medical Records Department [address] [place] [address] Emergency Department Summary 11/05/24 MR#: [id number] Acct: [id number] Name: REYNALDO ADDISON III Rep #: [id number] : 1995 29 From: David Lomax DO [...] sinus rhythm with a rate of 76. TX interval, QRS interval, and QTc intervals were all normal. [place] was normal. There are no acute ST or T wave changes. Prior EKG tracings: available for review Prior: Unchanged Treatment and Re-Evaluation :: Patient was advised of his findings. Patient was instructed to continue his BuSpar as prescribed. Patient was instructed to drink pl (more content not included)... Normal [facility] Eosinophil percentageOrdered By: David Lomax on 11-05-2024 Eosinophils/100 WBC (Bld) 0.3 % 0-5 [facility] Erythrocyte distribution wid th (RBC) [Ratio]Ordered By: David Lomax on 11-05-2024 Erythrocyte distribution width (RBC) [Entitic vol] 40.9 fL 35.1-43.9 [facility] Erythrocyte distribution wid th ratioOrdered By: David Lomax on 11-05-2024 Erythrocyte distribution width (RBC) [Ratio] 12.2 % 11.6-14.6 [facility] Estimated glomerular filtrat ion rate (GFR) AmericanOrdered By: David Lomax on 11-05-2024 Estimated GFR (MDRD) Amer 135 mL/min >60 [facility] Comment on above: GFR Calc Estimation of creatinine ramon aranceOrdered By: David Lomax on 11-05-2024 Estimated Creatinine Clearance Calc 85.38 ml/min [facility] Glomerular filtration rate ( GFR) estimationOrdered By: David Lomax on 11-05-2024 Estimated GFR (MDRD) Non-Af Amer 112 mL/min >60 [facility] Comment on above: Non- GFR Calc Glucose measurementOrdered B y: David Lomax on 11-05-2024 Glucose [Mass/Vol] 102 mg/dL 74-106 [facility] Comment on above: Fasting Glucose resu lt from 100 to 125 mg/dL suggests IMPAIRED HOMEOSTASIS per A.D.A. criteria. Hematocrit Auto (Bld) [Volum e fraction]Ordered By: David Lomax on 11-05-2024 Hematocrit (Bld) [Volume fraction] 46.8 % 40-54 [facility] Hemoglobin measurementOrdere d By: David Lomax on 11-05-2024 Hemoglobin (Bld) [Mass/Vol] 16.2 g/dL 13.0-16.5 [facility] Immature granulocytes/100 WB C Auto (Bld)Ordered By: David Lomax on 11-05-2024 Immature granulocytes/100 WBC (Bld) 0.000 % 0.0-0.9 [facility] Comment on above: IG% - Immature Granu locytes (promyelocytes, myelocytes and metamyelocytes) > 1% indicates that a LEFT SHIFT is Present. Lymphocytes Auto (Unsp spec) [#/Vol]Ordered By: David Lomax on 11-05-2024 Lymphocytes (Bld) [#/Vol] 1.24 10*3/uL 0.83-4.51 [facility] Lymphocytes/100 WBC Auto (Un sp spec)Ordered By: David Lomax on 11-05-2024 Lymphocytes/100 WBC (Bld) 32.3 % 19-41 [facility] MCV (mean corpuscular volume ) determinationOrdered By: David Lomax on 11-05-2024 MCV (RBC) [Entitic vol] 91.4 fL 80-94 [facility] Mean corpuscular hemoglobin (MCH) determinationOrdered By: David Lomax on 11-05-2024 MCH (RBC) [Entitic mass] 31.6 pg 27.0-32.0 [facility] Mean corpuscular hemoglobin concentration (MCHC) determinationOrdered By: David Lomax on 11-05-2024 MCHC (RBC) [Mass/Vol] 34.6 g/dL 32-36 [facility] [place] Mean platelet volume determi nationOrdered By: David Lomax on 11-05-2024 Platelet mean volume (Bld) [Entitic vol] 9.3 fL 6.2-12.0 [facility] Monocyte percentageOrdered B y: David Lomax on 11-05-2024 Monocytes/100 WBC (Bld) 5.5 % 0-10 [facility] Neutrophil percentageOrdered By: David Lomax on 11-05-2024 Neutrophils/100 WBC (Bld) 61.1 % 47-70 [facility] Nucleated red blood cell per centageOrdered By: David Lomax on 11-05-2024 Nucleated RBC/100 WBC (Bld) [Ratio] 0 % 0-5 [facility] Platelet countOrdered By: Bulmaro Lomax on 11-05-2024 Platelets (Bld) [#/Vol] 207 10*3/uL 150-450 [facility] Potassium measurementOrdered By: Davdi Lomax on 11-05-2024 Potassium [Moles/Vol] 4.4 mmol/L 3.5-5.1 [facility] [place] RBC Auto (Bld) [#/Vol]Ordere d By: David Lomax on 11-05-2024 RBC (Bld) [#/Vol] 5.12 10*6/uL 4.6-6.2 [facility] Serum anion gap measurementO rdered By: David Lomax on 11-05-2024 Anion gap [Moles/Vol] 7 mmol/L 5-15 [facility] [place] Serum or plasma calcium yoni urement (mass/volume)Ordered By: David Lomax on 11-05-2024 Calcium [Mass/Vol] 9.1 mg/dL 8.5-10.1 [facility] Serum or plasma creatinine m easurement (mass/volume)Ordered By: David Lomax on 11-05-2024 Creatinine [Mass/Vol] 0.86 mg/dL 0.70-1.30 [facility] [place] Comment on above: The validity of the calculated GFR & GFRAA in patients over 70 years has not been determined. Clinical correlation is essential. Serum or plasma urea nitroge n measurement (mass/volume)Ordered By: David Lomax on 11-05-2024 Urea nitrogen [Mass/Vol] 10 mg/dL 7-18 [facility] Sodium levelOrdered By: David Lomax on 11-05-2024 Sodium [Moles/Vol] 138 mmol/L 136-145 [facility] White blood cell (WBC) count Ordered By: David Lomax on 11-05-2024 WBC (Bld) [#/Vol] 3.8 10*3/uL Low 4.4-11.0 [facility] CNOVon 07-23-2024 CNOV Office Visit (UCTR ) REYNALDO ADDISON ([id number]) 1995 M Date Time Provider Department 07/23/24 10:00 AM GENEVIEVE WADE [facility] During your visit today, we recorded the following information about you: Temperature Pulse Respiration Blood pressure 98.6 degrees 92/minute 18/minute 112/75 Weight 50.4 kg Genevieve Wade APRN.CUE WORKER 07/23/2024 10:23 AM Signed Subjective HPI HPI Reynaldo Rodriguez zAael is a 29 year old male who [...] DOXYCYCLINE MONOHYDRATE 100 MG TABLET Genevieve Wade APRN.CUE WORKER Allergies As of Date: 07/23/2024 Noted Allergy [...] as of (more content not included)... Normal [facility] 12 Lead EKGon 07-20-2024 12 Lead EKG [facility] Cardiovascular Services [address] [place] [address] 12 Lead EKG 07/20/24 1802 MR#: [id number] Acct: [id number] Name: REYNALDO ADDISON III Rep #: [id number] : 1995 29 From: Brian Amaya MD Attending Dr: Status: DEP ER Ordering Dr: Jalil Goemz DO Date: 07/20/24 Location: ED Sex: M [...] enlargement Borderline ECG Confirmed by Brian Amaya ([id number]), brands editor OLIVA BOLANOS ([id number]) on 07/21/2024 1:40:14 PM Referred By: Jalil Gomez Confirmed By:Brian Amaya 07/21/24 1340 Date Brian Amaya MD CC: Dr. Moustapha Gtz MD; Dr. Jalil Gomez DO Signed Normal [facility] Basic Metabolic Profile (BMP )on 07-20-2024 BUN/CRE 11.9 RATIO Normal -20 [facility] Comment on above: Performed By: #### L 500.2500, L501.5200, L100.0100 #### [facility] [address] [place], [address] CA,Total 9.0 mg/dL Normal 8.5-10.1 [facility] Comment on above: Performed By: #### L 500.2500, L501.5200, L100.0100 #### [facility] [address] [place], [address] Chloride [Moles/Vol] 108 mmol/L High 98-107 [facility] Comment on above: Performed By: #### L 500.2500, L501.5200, L100.0100 #### [facility] [address] [place], [address] CO2 [Moles/Vol] 25.0 mmol/L Normal 21.0-32.0 [facility] Comment on above: Performed By: #### L 500.2500, L501.5200, L100.0100 #### [facility] [address] [place], [address] Creatinine [Mass/Vol] 0.76 mg/dL Normal 0.70-1.30 [facility] [place] Comment on above: Result Comment: The validity of the calculated GFR GFRAA in patients over 70 years has not been determined. Clinical correlation is essential. Performed By: #### L 500.2500, L501.5200, L100.0100 #### [facility] [address] [place], [address] ECRCL 106.00 ml/min Normal [facility] Comment on above: Performed By: #### L 500.2500, L501.5200, L100.0100 #### [facility] [address] [place], [address] EST GFR - AA 157 mL/min Normal >60 [facility] Comment on above: Result Comment: Afri can [place] GFR Calc Performed By: #### L 500.2500, L501.5200, L100.0100 #### [facility] [address] [place], [address] GAP 6 Normal 5-15 [facility] Comment on above: Performed By: #### L 500.2500, L501.5200, L100.0100 #### [facility] [address] [place], [address] GFR/1.73 sq M.predicted among non-blacks MDRD (S/P/Bld) [Vol rate/Area] 129 mL/min/{1.73_m2} Normal >60 [facility] Comment on above: Result Comment: Non- GFR Calc Performed By: #### L 500.2500, L501.5200, L100.0100 #### [facility] [address] [place], [address] Glucose [Mass/Vol] 104 mg/dL Normal 74-106 [facility] Comment on above: Result Comment: Fast ing Glucose result from 100 to 125 mg/dL suggests IMPAIRED HOMEOSTASIS per A.D.A. criteria. Performed By: #### L 500.2500, L501.5200, L100.0100 #### [facility] [address] [place], [address] Potassium [Moles/Vol] 3.6 mmol/L Normal 3.5-5.1 [facility] [place] Comment on above: Performed By: #### L 500.2500, L501.5200, L100.0100 #### [facility] [address] [place], [address] Sodium [Moles/Vol] 138 mmol/L Normal 136-145 [facility] Comment on above: Performed By: #### L 500.2500, L501.5200, L100.0100 #### [facility] [address] [place], [address] Urea nitrogen [Mass/Vol] 9 mg/dL Normal 7-18 [facility] Comment on above: Performed By: #### L 500.2500, L501.5200, L100.0100 #### [facility] [address] [place], [address] CBC W/Diff, Automatedon 10-1 Absolute Lymph 0.99 X10 3/uL Normal 0.83-4.51 [facility] Comment on above: Performed By: #### L 500.2500, L501.5200, L100.0100 #### [facility] [address] [place], [address] Absolute Neut 3.5 X10 3/uL Normal 2.0-7.7 [facility] Comment on above: Performed By: #### L 500.2500, L501.5200, L100.0100 #### [facility] [address] [place], [address] Basophils/100 WBC (Bld) 0.6 % Normal 0-1 [facility] Comment on above: Performed By: #### L 500.2500, L501.5200, L100.0100 #### [facility] [address] [place], [address] Eosinophils/100 WBC (Bld) 0.6 % Normal 0-5 [facility] Comment on above: Performed By: #### L 500.2500, L501.5200, L100.0100 #### [facility] [address] [place], [address] Erythrocyte distribution width (RBC) [Ratio] 12.7 % Normal 11.6-14.6 [facility] Comment on above: Performed By: #### L 500.2500, L501.5200, L100.0100 #### [facility] [address] [place], [address] Hematocrit (Bld) [Volume fraction] 41.1 % Normal 40-54 [facility] Comment on above: Performed By: #### L 500.2500, L501.5200, L100.0100 #### [facility] [address] [place], [address] Hemoglobin (Bld) [Mass/Vol] 14.2 g/dL Normal 13.0-16.5 [facility] Comment on above: Performed By: #### L 500.2500, L501.5200, L100.0100 #### [facility] [address] [place], [address] IG% 0.200 Normal 0.0-0.9 [facility] Comment on above: Result Comment: IG% - Immature Granulocytes (promyelocytes, myelocytes and metamyelocytes) > 1% indicates that a LEFT SHIFT is Present. Performed By: #### L 500.2500, L501.5200, L100.0100 #### [facility] [address] [place], [address] Lymphocytes/100 WBC (Bld) 19.4 % Normal 19-41 [facility] Comment on above: Performed By: #### L 500.2500, L501.5200, L100.0100 #### [facility] [address] [place], [address] MCH (RBC) [Entitic mass] 31.8 pg Normal 27.0-32.0 [facility] Comment on above: Performed By: #### L 500.2500, L501.5200, L100.0100 #### [facility] [address] [place], [address] MCHC (RBC) [Mass/Vol] 34.5 g/dL Normal 32-36 [facility] Comment on above: Performed By: #### L 500.2500, L501.5200, L100.0100 #### [facility] [address] [place], [address] MCV (RBC) [Entitic vol] 92.2 fL Normal 80-94 [facility] Comment on above: Performed By: #### L 500.2500, L501.5200, L100.0100 #### [facility] [address] [place], [address] Monocytes/100 WBC (Bld) 10.0 % Normal 0-10 [facility] Comment on above: Performed By: #### L 500.2500, L501.5200, L100.0100 #### [facility] [address] [place], [address] Neutrophils/100 WBC (Bld) 69.2 % Normal 47-70 [facility] Comment on above: Performed By: #### L 500.2500, L501.5200, L100.0100 #### [facility] [address] [place], [address] Nucleated RBC (Bld) [#/Vol] 0 10*3/uL Normal 0-5 [facility] Comment on above: Performed By: #### L 500.2500, L501.5200, L100.0100 #### [facility] [address] [place], [address] Platelet mean volume (Bld) [Entitic vol] 9.6 fL Normal 6.2-12.0 [facility] Comment on above: Performed By: #### L 500.2500, L501.5200, L100.0100 #### [facility] [address] [place], [address] Platelets (Bld) [#/Vol] 185 10*3/uL Normal 150-450 [facility] Comment on above: Performed By: #### L 500.2500, L501.5200, L100.0100 #### [facility] [address] [place], [address] RBC (Bld) [#/Vol] 4.46 10*6/uL Low 4.6-6.2 [facility] Comment on above: Performed By: #### L 500.2500, L501.5200, L100.0100 #### [facility] [address] [place], [address] RDW SD 43.0 fl Normal 35.1-43.9 [facility] Comment on above: Performed By: #### L 500.2500, L501.5200, L100.0100 #### [facility] [address] [place], [address] WBC (Bld) [#/Vol] 5.1 10*3/uL Normal 4.4-11.0 [facility] Comment on above: Performed By: #### L 500.2500, L501.5200, L100.0100 #### [facility] [address] [place], [address] Emergency Department Summary on 07-20-2024 Emergency Department Summary [facility] Medical Records Department [address] [place] [address] Emergency Department Summary 07/20/24 MR#: [id number] Acct: [id number] Name: REYNALDO ADDISON III Rep #: [id number] : 1995 29 From: Jalil Gomez DO [...] any wheezing stridor swelling rashes. Noted fever. [facility] Medical History (Updated 07/20/24 @ 19:48 by [...] his prescri (more content not included)... Normal [facility] Magnesiumon 07-20-2024 Magnesium [Mass/Vol] 2.2 mg/dL Normal 1.6-2.6 [facility] Comment on above: Performed By: #### L 500.2500, L501.5200, L100.0100 #### [facility] [address] [facility] [place], [address] CNCOon 06-29-2024 CNCO Letter Text Normal [facility] 12 Lead EKGon 06-28-2024 12 Lead EKG [facility] Cardiovascular Services [address] [place] [address] 12 Lead EKG 06/28/24 0910 MR#: [id number] Acct: [id number] Name: REYNALDO ADDISON III Rep #: [id number] : 1995 29 From: Brian Amaya MD [...] Normal ECG Confirmed by Brian Amaya ([id number]), brands editor BASHIR MAIN ([id number]) on 06/30/2024 9:42:05 AM Referred By: Confirmed By:Brian Amaya 06/30/24 0942 Date Brian Amaya MD CC: Dr. Moustapha Gtz MD; Dr. Jelani Scott DO Signed Normal [facility] Basic Metabolic Profile (BMP )on 06-28-2024 BUN/CRE 11.3 RATIO Normal 10-20 [facility] Comment on above: Order Comment: 'TROP ' Serial specimen #1, #2 or #3: 1 Performed By: #### L 500.2500, L501.4020, L100.0100 #### [facility] [address] [place], [address] CA,Total 9.6 mg/dL Normal 8.5-10.1 [facility] Comment on above: Order Comment: 'TROP ' Serial specimen #1, #2 or #3: 1 Performed By: #### L 500.2500, L501.4020, L100.0100 #### [facility] [address] [place], [address] Chloride [Moles/Vol] 107 mmol/L Normal 98-107 [facility] Comment on above: Order Comment: 'TROP ' Serial specimen #1, #2 or #3: 1 Performed By: #### L 500.2500, L501.4020, L100.0100 #### [facility] [address] [place], [address] CO2 [Moles/Vol] 29.0 mmol/L Normal 21.0-32.0 [facility] Comment on above: Order Comment: 'TROP ' Serial specimen #1, #2 or #3: 1 Performed By: #### L 500.2500, L501.4020, L100.0100 #### [facility] [address] [place], [address] Creatinine [Mass/Vol] 0.88 mg/dL Normal 0.70-1.30 [facility] Comment on above: Order Comment: 'TROP ' Serial specimen #1, #2 or #3: 1 Result Comment: The validity of the calculated GFR GFRAA in patients over 70 years has not been determined. Clinical correlation is essential. Performed By: #### L 500.2500, L501.4020, L100.0100 #### [facility] [address] [place], [address] ECRCL 90.59 ml/min Normal [facility] Comment on above: Order Comment: 'TROP ' Serial specimen #1, #2 or #3: 1 Performed By: #### L 500.2500, L501.4020, L100.0100 #### [facility] [address] [place], [address] EST GFR - AA 131 mL/min Normal >60 [facility] Comment on above: Order Comment: 'TROP ' Serial specimen #1, #2 or #3: 1 Result Comment: Afri can [place] GFR Calc Performed By: #### L 500.2500, L501.4020, L100.0100 #### [facility] [address] [place], [address] GAP 3 Low 5-15 [facility] Comment on above: Order Comment: 'TROP ' Serial specimen #1, #2 or #3: 1 Performed By: #### L 500.2500, L501.4020, L100.0100 #### [facility] [address] [place], [address] GFR/1.73 sq M.predicted among non-blacks MDRD (S/P/Bld) [Vol rate/Area] 108 mL/min/{1.73_m2} Normal >60 [facility] Comment on above: Order Comment: 'TROP ' Serial specimen #1, #2 or #3: 1 Result Comment: Non- GFR Calc Performed By: #### L 500.2500, L501.4020, L100.0100 #### [facility] [address] [place], [address] Glucose [Mass/Vol] 109 mg/dL High 74-106 [facility] Comment on above: Order Comment: 'TROP ' Serial specimen #1, #2 or #3: 1 Result Comment: Fast ing Glucose result from 100 to 125 mg/dL suggests IMPAIRED HOMEOSTASIS per A.D.A. criteria. Performed By: #### L 500.2500, L501.4020, L100.0100 #### [facility] [address] [place], [address] Potassium [Moles/Vol] 3.6 mmol/L Normal 3.5-5.1 [facility] Comment on above: Order Comment: 'TROP ' Serial specimen #1, #2 or #3: 1 Performed By: #### L 500.2500, L501.4020, L100.0100 #### [facility] [address] [place], [address] Sodium [Moles/Vol] 139 mmol/L Normal 136-145 [facility] Comment on above: Order Comment: 'TROP ' Serial specimen #1, #2 or #3: 1 Performed By: #### L 500.2500, L501.4020, L100.0100 #### [facility] [address] [place], [address] Urea nitrogen [Mass/Vol] 10 mg/dL Normal 7-18 [facility] Comment on above: Order Comment: 'TROP ' Serial specimen #1, #2 or #3: 1 Performed By: #### L 500.2500, L501.4020, L100.0100 #### [facility] [address] [place], [address] CBC W/Diff, Automatedon 09-2 Absolute Lymph 1.97 X10 3/uL Normal 0.83-4.51 [facility] Comment on above: Performed By: #### L 500.2500, L501.4020, L100.0100 #### [facility] [address] [place], [address] Absolute Neut 2.6 X10 3/uL Normal 2.0-7.7 [facility] Comment on above: Performed By: #### L 500.2500, L501.4020, L100.0100 #### [facility] [address] [place], [address] Basophils/100 WBC (Bld) 0.6 % Normal 0-1 [facility] Comment on above: Performed By: #### L 500.2500, L501.4020, L100.0100 #### [facility] [address] [place], [address] Eosinophils/100 WBC (Bld) 0.8 % Normal 0-5 [facility] Comment on above: Performed By: #### L 500.2500, L501.4020, L100.0100 #### [facility] [address] [place], [address] Erythrocyte distribution width (RBC) [Ratio] 12.8 % Normal 11.6-14.6 [facility] Comment on above: Performed By: #### L 500.2500, L501.4020, L100.0100 #### [facility] [address] [place], [address] Hematocrit (Bld) [Volume fraction] 41.9 % Normal 40-54 [facility] Comment on above: Performed By: #### L 500.2500, L501.4020, L100.0100 #### [facility] [address] [place], [address] Hemoglobin (Bld) [Mass/Vol] 14.2 g/dL Normal 13.0-16.5 [facility] Comment on above: Performed By: #### L 500.2500, L501.4020, L100.0100 #### [facility] [address] [place], [address] IG% 0.000 Normal 0.0-0.9 [facility] Comment on above: Result Comment: IG% - Immature Granulocytes (promyelocytes, myelocytes and metamyelocytes) > 1% indicates that a LEFT SHIFT is Present. Performed By: #### L 500.2500, L501.4020, L100.0100 #### [facility] [address] [place], [address] Lymphocytes/100 WBC (Bld) 38.9 % Normal 19-41 [facility] Comment on above: Performed By: #### L 500.2500, L501.4020, L100.0100 #### [facility] [address] [place], [address] MCH (RBC) [Entitic mass] 31.3 pg Normal 27.0-32.0 [facility] Comment on above: Performed By: #### L 500.2500, L501.4020, L100.0100 #### [facility] [address] [place], [address] MCHC (RBC) [Mass/Vol] 33.9 g/dL Normal 32-36 [facility] Comment on above: Performed By: #### L 500.2500, L501.4020, L100.0100 #### [facility] [address] [place], [address] MCV (RBC) [Entitic vol] 92.5 fL Normal 80-94 [facility] Comment on above: Performed By: #### L 500.2500, L501.4020, L100.0100 #### [facility] [address] [place], [address] Monocytes/100 WBC (Bld) 7.9 % Normal 0-10 [facility] Comment on above: Performed By: #### L 500.2500, L501.4020, L100.0100 #### [facility] [address] [place], [address] Neutrophils/100 WBC (Bld) 51.8 % Normal 47-70 [facility] Comment on above: Performed By: #### L 500.2500, L501.4020, L100.0100 #### [facility] [address] [place], [address] Nucleated RBC (Bld) [#/Vol] 0 10*3/uL Normal 0-5 [facility] Comment on above: Performed By: #### L 500.2500, L501.4020, L100.0100 #### [facility] [address] [place], [address] Platelet mean volume (Bld) [Entitic vol] 9.3 fL Normal 6.2-12.0 [facility] Comment on above: Performed By: #### L 500.2500, L501.4020, L100.0100 #### [facility] [address] [place], [address] Platelets (Bld) [#/Vol] 200 10*3/uL Normal 150-450 [facility] Comment on above: Performed By: #### L 500.2500, L501.4020, L100.0100 #### [facility] [address] [place], [address] RBC (Bld) [#/Vol] 4.53 10*6/uL Low 4.6-6.2 [facility] Comment on above: Performed By: #### L 500.2500, L501.4020, L100.0100 #### [facility] [address] [place], [address] RDW SD 43.3 fl Normal 35.1-43.9 [facility] Comment on above: Performed By: #### L 500.2500, L501.4020, L100.0100 #### [facility] [address] [place], [address] WBC (Bld) [#/Vol] 5.1 10*3/uL Normal 4.4-11.0 [facility] Comment on above: Performed By: #### L 500.2500, L501.4020, L100.0100 #### [facility] [address] [place], [address] Emergency Department Summary on 06-28-2024 Emergency Department Summary [facility] Medical Records Department [address] [place] [address] Emergency Department Summary 06/28/24 MR#: [id number] Acct: [id number] Name: REYNALDO ADDISON III Rep #: [id number] : 1995 29 From: Jelani Scott DO [...] states that has been driving his car [id number] to work and notes that it is [...] has not had any Holter monitor placement. [facility] Medical History (Updated 06/28/24 @ 10:29 by [...] follow commands knew that he was at [facility] years 2023 Skin: Warm, dry, tact Const [...] this point (more content not included)... Normal [facility] L501.4020on 06-28-2024 TROPONIN-I HS < 3 Low 3.0-78.0 [facility] Comment on above: Order Comment: 'TROP ' Serial specimen #1, #2 or #3: 1 Result Comment: Alecia rod Note: New Test Units and Gender Specific Reference Ranges. For more information see Policy Stat Procedure [place] High Sensitivity Troponin (TNIH) and attachments. Performed By: #### L 500.2500, L501.4020, L100.0100 #### [facility] [address] [place], [address] [facility] 06-27-2024 [facility] REYNALDO ADDISON ([id number]) 1995 M Date Time Provider Department 06/27/24 DARYN GTZ [facility] During your visit today, we recorded [...] asking for rx to be sent to [facility] pharmacy. Pending rx needs completed. Daryn Gtz [...] VITAMIN D 25 HYDROXY [SQVITD] Order #: [id number] FUTURE cyanocobalamin (VITAMIN B-12) 1,000 mcg tabTake [...] Status:Closed by MING WEN on 07/04/24 Normal [facility] 25([place])D3 [place] 2023 25-hydroxyvitamin D3 [Mass/Vol] 7.3 ng/mL Low 31.0-80.0 [facility] Comment on above: Order Comment: Speci men Type: BLOOD SPECIMEN Ordering Facility: [facility] Address: [address] [place] [address] Result Comment: Clas sification of 25 [place] Vitamin D status: Deficiency/Insufficiency: < or = 30 ng/ml. Sufficiency/Optimal Levels: 31-80 ng/mL Toxicity: > 100 ng/mL. Test performed by chemiluminescent immunoassay. Performed By: #### 3 016-3, 2132-9, LIPNF, 39830-5 #### [facility] CLIA [id number] [address] [place] [address] [place] [address] [place] CBC W Auto Differential pane l (Bld)on 06-26-2024 Basophils (Bld) [#/Vol] 0.05 10*3/uL [facility] Basophils/100 WBC (Bld) 0.8 % C [facility] Differential cell count method Nom (Bld) Auto [facility] Eosinophils (Bld) [#/Vol] 0.13 10*3/uL [facility] Eosinophils/100 WBC (Bld) 2.1 % [facility] Erythrocyte distribution width (RBC) [Ratio] 12.9 % 11.5 - 15.0 % [facility] Hematocrit (Bld) [Volume fraction] 46.2 % 39.0 - 51.0 % [facility] Hemoglobin (Bld) [Mass/Vol] 15.4 g/dL 13.0 - 17.0 g/dL [facility] Immature granulocytes (Bld) [#/Vol] [facility] Immature granulocytes/100 WBC (Bld) 0.2 % [facility] Lymphocytes (Bld) [#/Vol] 3.19 10*3/uL [facility] Lymphocytes/100 WBC (Bld) 52.0 % [facility] MCH (RBC) [Entitic mass] 31.4 pg 26. 0 - 34.0 pg [facility] MCHC (RBC) [Mass/Vol] 33.3 g/dL 30.5 - 36.0 g/dL [facility] MCV (RBC) [Entitic vol] 94.3 fL 80.0 - 100.0 fL [facility] Monocytes (Bld) [#/Vol] 0.43 10*3/uL [facility] Monocytes/100 WBC (Bld) 7.0 % [facility] Neutrophils (Bld) [#/Vol] 2.33 10*3/uL [facility] Neutrophils/100 WBC (Bld) 37.9 % [facility] Nucleated RBC (Bld) [#/Vol] [facility] Nucleated RBC/100 WBC (Bld) [Ratio] 0.0 % /100 WBC [facility] Platelet mean volume (Bld) [Entitic vol] 10.3 fL 9.0 - 12.7 fL [facility] Platelets (Bld) [#/Vol] 229 10*3/uL [facility] RBC (Bld) [#/Vol] 4.90 10*6/uL 4.20 - 6.0 0 m/uL [facility] WBC (Bld) [#/Vol] 6.14 10*3/uL [facility] Basophils (Bld) [#/Vol] 0.05 10*3/uL Normal <0.11 [facility] Comment on above: Order Comment: Speci men Type: BLOOD SPECIMEN Ordering Facility: [facility] Address: [address] [place] [address] Performed By: #### 3 016-3, 2132-06, LIPNF, #### [facility] CLIA [id number] [address] [place] [address] [place] Basophils/100 WBC (Bld) 0.8 % Normal [facility] Comment on above: Order Comment: Speci men Type: BLOOD SPECIMEN Ordering Facility: [facility] Address: [address] [place] [address] Performed By: #### 3 016-3, 2132-06, LIPNF, #### [facility] CLIA [id number] [address] [place] [address] [place] Differential cell count method Nom (Bld) Auto Normal [facility] Comment on above: Order Comment: Speci men Type: BLOOD SPECIMEN Ordering Facility: [facility] Address: [address] [place] [address] Performed By: #### 3 016-3, 2132-06, LIPNF, #### [facility] CLIA [id number] [address] [place] [address] [place] Eosinophils (Bld) [#/Vol] 0.13 10*3/uL Normal <0.46 [facility] Comment on above: Order Comment: Speci men Type: BLOOD SPECIMEN Ordering Facility: [facility] Address: [address] [place] [address] Performed By: #### 3 016-3, 2132-06, LIPNF, 28902-5 #### [facility] CLIA [id number] [address] [place] [address] [place] Eosinophils/100 WBC (Bld) 2.1 % Normal [facility] Comment on above: Order Comment: Speci men Type: BLOOD SPECIMEN Ordering Facility: [facility] Address: [address] [place] [address] Performed By: #### 3 016-3, 2132-06, LIPNF, 65177-5 #### [facility] CLIA [id number] [address] [place] [address] [place] Erythrocyte distribution width (RBC) [Ratio] 12.9 % Normal 11.5-15.0 [facility] Comment on above: Order Comment: Speci men Type: BLOOD SPECIMEN Ordering Facility: [facility] Address: [address] [place] [address] Performed By: #### 3 016-3, 2132-06, LIPNF, #### [facility] CLIA [id number] [address] [place] [address] [place] Hematocrit (Bld) [Volume fraction] 46.2 % Normal 39.0-51.0 [facility] Comment on above: Order Comment: Speci men Type: BLOOD SPECIMEN Ordering Facility: [facility] Address: [address] [place] [address] Performed By: #### 3 016-3, 2132-06, LIPNF, 13382-0 #### [facility] CLIA [id number] [address] [place] [address] [place] Hemoglobin (Bld) [Mass/Vol] 15.4 g/dL Normal 13.0-17.0 [facility] Comment on above: Order Comment: Speci men Type: BLOOD SPECIMEN Ordering Facility: [facility] Address: [address] [place] [address] Performed By: #### 3 016-3, 9, LIPNF, 95004-2 #### [facility] CLIA [id number] [address] [place] [address] [place] Immature granulocytes (Bld) [#/Vol] 10*3/uL Normal <0.10 [facility] Comment on above: Order Comment: Speci men Type: BLOOD SPECIMEN Ordering Facility: [facility] Address: [address] [place] [address] Performed By: #### 3 016-3, 2132-06, LIPNF, #### [facility] CLIA [id number] [address] [place] [address] [place] Immature granulocytes/100 WBC (Bld) 0.2 % Normal [facility] Comment on above: Order Comment: Speci men Type: BLOOD SPECIMEN Ordering Facility: [facility] Address: [address] [place] [address] Performed By: #### 3 016-3, 2132-06, LIPNF, #### [facility] CLIA [id number] [address] [place] [address] [place] Lymphocytes (Bld) [#/Vol] 3.19 10*3/uL Normal 1.00-4.00 [facility] Comment on above: Order Comment: Speci men Type: BLOOD SPECIMEN Ordering Facility: [facility] Address: [address] [place] [address] Performed By: #### 3 016-3, 2132-06, LIPNF, #### [facility] CLIA [id number] [address] [place] [address] [place] Lymphocytes/100 WBC (Bld) 52.0 % Normal [facility] Comment on above: Order Comment: Speci men Type: BLOOD SPECIMEN Ordering Facility: [facility] Address: [address] [place] [address] Performed By: #### 3 016-3, 2132-06, LIPNF, 35163-5 #### [facility] CLIA [id number] [address] [place] [address] [place] MCH (RBC) [Entitic mass] 31.4 pg Normal 26.0-34.0 [facility] Comment on above: Order Comment: Speci men Type: BLOOD SPECIMEN Ordering Facility: [facility] Address: [address] [place] [address] Performed By: #### 3 016-3, 2132-06, LIPNF, #### [facility] CLIA [id number] [address] [place] [address] [place] MCHC (RBC) [Mass/Vol] 33.3 g/dL Normal 30.5-36.0 [facility] Comment on above: Order Comment: Speci men Type: BLOOD SPECIMEN Ordering Facility: [facility] Address: [address] [place] [address] Performed By: #### 3 016-3, 2132-06, LIPNF, #### [facility] CLIA [id number] [address] [place] [address] [place] MCV (RBC) [Entitic vol] 94.3 fL Normal 80.0-100.0 C [facility] Comment on above: Order Comment: Speci men Type: BLOOD SPECIMEN Ordering Facility: [facility] Address: [address] [place] [address] Performed By: #### 3 016-3, 2132-06, LIPNF, #### [facility] CLIA [id number] [address] [place] [address] [place] Monocytes (Bld) [#/Vol] 0.43 10*3/uL Normal <0.87 [facility] Comment on above: Order Comment: Speci men Type: BLOOD SPECIMEN Ordering Facility: [facility] Address: [address] [place] [address] Performed By: #### 3 016-3, 2132-06, LIPNF, #### [facility] CLIA [id number] [address] [place] [address] [place] Monocytes/100 WBC (Bld) 7.0 % Normal [facility] Comment on above: Order Comment: Speci men Type: BLOOD SPECIMEN Ordering Facility: [facility] Address: [address] [place] [address] Performed By: #### 3 016-3, 9, LIPNF, 36472-8 #### [facility] CLIA [id number] [address] [place] [address] [place] Neutrophils (Bld) [#/Vol] 2.33 10*3/uL Normal 1.45-7.50 [facility] Comment on above: Order Comment: Speci men Type: BLOOD SPECIMEN Ordering Facility: [facility] Address: [address] [place] [address] Performed By: #### 3 016-3, 9, LIPNF, #### [facility] CLIA [id number] [address] [place] [address] [place] Neutrophils/100 WBC (Bld) 37.9 % Normal [facility] Comment on above: Order Comment: Speci men Type: BLOOD SPECIMEN Ordering Facility: [facility] Address: [address] [place] [address] Performed By: #### 3 016-3, 9, LIPNF, 48209-7 #### [facility] CLIA [id number] [address] [place] [address] [place] Nucleated RBC (Bld) [#/Vol] 10*3/uL Normal <0.01 [facility] Comment on above: Order Comment: Speci men Type: BLOOD SPECIMEN Ordering Facility: [facility] Address: [address] [place] [address] Performed By: #### 3 016-3, 9, LIPNF, 16396-3 #### [facility] CLIA [id number] [address] [place] [address] [place] Nucleated RBC/100 WBC (Bld) [Ratio] 0.0 /100 WBC Normal [facility] Comment on above: Order Comment: Speci men Type: BLOOD SPECIMEN Ordering Facility: [facility] Address: [address] [place] [address] Performed By: #### 3 016-3, 9, LIPNF, 56585-1 #### [facility] CLIA [id number] [address] [place] [address] [place] Platelet mean volume (Bld) [Entitic vol] 10.3 fL Normal 9.0-12.7 [facility] Comment on above: Order Comment: Speci men Type: BLOOD SPECIMEN Ordering Facility: [facility] Address: [address] [place] [address] Performed By: #### 3 016-3, 9, LIPNF, 99400-1 #### [facility] CLIA [id number] [address] [place] [address] [place] Platelets (Bld) [#/Vol] 229 10*3/uL Normal 150-400 [facility] Comment on above: Order Comment: Speci men Type: BLOOD SPECIMEN Ordering Facility: [facility] Address: [address] [place] [address] Performed By: #### 3 016-3, 9, LIPNF, 47356-3 #### [facility] CLIA [id number] [address] [place] [address] [place] RBC (Bld) [#/Vol] 4.90 10*6/uL Normal 4.20-6.00 [facility] Comment on above: Order Comment: Speci men Type: BLOOD SPECIMEN Ordering Facility: [facility] Address: [address] [place] [address] Performed By: #### 3 016-3, 9, LIPNF, 00568-5 #### [facility] CLIA [id number] [address] [place] [address] [place] WBC (Bld) [#/Vol] 6.14 10*3/uL Normal 3.70-11.00 [facility] Comment on above: Order Comment: Speci men Type: BLOOD SPECIMEN Ordering Facility: [facility] Address: [address] [place] [address] Performed By: #### 3 016-3, 2132-9, LIPFRANKIE, 26188-1 #### [facility] CLIA [id number] [address] [place] [address] [place] CNOVon 06-26-2024 CNOV Office Visit (FAMPWS ) REYNALDO ADDISON ([id number]) 1995 M Date Time Provider Department 06/26/24 12:20 PM [facility] During your visit today, we recorded the following information about you: Pulse Respiration Blood pressure Weight 87/minute 16/minute 116/66 52.3 kg Height 1.656 m Daryn Gtz MD 06/26/2024 2:52 PM Signed Chief Complaint Patient presents with: Establish Care HPI Reynaldo Rodriguez Azael is a 29 year old male who presents here today for Above Complaints. Accompanied today by mother. Previous PCP was his utilization review coordinator Dr. Tai. We discussed possible tension headache at last OV on 05/11 and patient returned to [facility] ER on 05/13 for same complaint [...] as nee (more content not included)... Normal [facility] Comprehensive metabolic 2000 panelon 06-26-2024 Albumin [Mass/Vol] 4.7 g/dL Normal 3.9-4.9 [facility] Comment on above: Order Comment: Mervat reeder Type: BLOOD SPECIMEN Ordering Facility: [facility] Address: [address] [place] [address] Performed By: #### L IPNF, 3016-3, 71900-6, 2132-9 #### [facility] CLIA [id number] [address] [place] [address] [place] [address] [place] ALP [Catalytic activity/Vol] 67 U/L Normal 38-113 [facility] Comment on above: Order Comment: Kacyi men Type: BLOOD SPECIMEN Ordering Facility: [facility] Address: [address] [place] [address] Performed By: #### L IPNF, 6-3, 59643-3, 2132-06 #### [facility] CLIA [id number] [address] [place] [address] [place] ALT [Catalytic activity/Vol] 17 U/L Normal 10-54 [facility] Comment on above: Order Comment: Speci men Type: BLOOD SPECIMEN Ordering Facility: [facility] Address: [address] [place] [address] Performed By: #### L IPNF, 6-3, 52999-1, 2132-06 #### [facility] CLIA [id number] [address] [place] [address] [place] Anion gap [Moles/Vol] 11 mmol/L Normal 8-15 [facility] Comment on above: Order Comment: Speci men Type: BLOOD SPECIMEN Ordering Facility: [facility] Address: [address] [place] [address] Performed By: #### L IPNF, 6-3, 01929-2, 2132-06 #### [facility] CLIA [id number] [address] [place] [address] [place] AST [Catalytic activity/Vol] 22 U/L Normal 14-40 [facility] Comment on above: Order Comment: Speci men Type: BLOOD SPECIMEN Ordering Facility: [facility] Address: [address] [place] [address] Performed By: #### L IPNF, 6-3, 34142-9, 2132-06 #### [facility] CLIA [id number] [address] [place] [address] [place] Bilirubin [Mass/Vol] 0.4 mg/dL Normal 0.2-1.3 [facility] Comment on above: Order Comment: Speci men Type: BLOOD SPECIMEN Ordering Facility: [facility] Address: [address] [place], [place] [id number] Performed By: #### L IPNF, 3016-3, 71238-3, 2132-06 #### [facility] CLIA [id number] [address] [place] [address] [place] Calcium [Mass/Vol] 9.9 mg/dL Normal 8.5-10.2 [facility] Comment on above: Order Comment: Speci men Type: BLOOD SPECIMEN Ordering Facility: [facility] Address: [address] [place] [address] Performed By: #### L IPNF, 3016-3, 48854-3, 2132-06 #### [facility] CLIA [id number] [address] [place] [address] [place] Chloride [Moles/Vol] 103 mmol/L Normal 98-107 [facility] Comment on above: Order Comment: Speci men Type: BLOOD SPECIMEN Ordering Facility: [facility] Address: [address] [place] [address] Performed By: #### L IPNF, 6-3, 04207-5, 2132-06 #### [facility] CLIA [id number] [address] [place] [address] [place] CO2 [Moles/Vol] 28 mmol/L Normal 22-30 [facility] Comment on above: Order Comment: Speci men Type: BLOOD SPECIMEN Ordering Facility: [facility] Address: [address] [place] [address] Performed By: #### L IPNF, 6-3, 33762-8, 2132-06 #### [facility] CLIA [id number] [address] [place] [address] [place] Creatinine [Mass/Vol] 0.80 mg/dL Normal 0.73-1.22 [facility] Comment on above: Order Comment: Speci men Type: BLOOD SPECIMEN Ordering Facility: [facility] Address: [address] [place] [address] Performed By: #### L IPNF, 3016-3, 33022-8, 9 #### [facility] CLIA [id number] [address] [place] [address] [place] Creatinine and Glomerular filtration rate.predicted panel (S/P/Bld) 123 mL/min/1.73m??? Normal >=60 [facility] Comment on above: Order Comment: Mervat reeder Type: BLOOD SPECIMEN Ordering Facility: [facility] Address: [address] [place] [address] Result Comment: Davida mated Glomerular Filtration Rate [...] accurately reflect actual GFR. Performed By: #### L IPNF, 3016-3, 74409-2, 2132-06 #### [facility] CLIA [id number] [address] [place] [address] [place] Glucose [Mass/Vol] 77 mg/dL Normal 74-99 [facility] Comment on above: Order Comment: Mervat reeder Type: BLOOD SPECIMEN Ordering Facility: [facility] Address: [address] [place] [address] Result Comment: The [place] Diabetes Association (ADA) provides guidance for cutoff [...] Standards of Medical Care in Diabetes 2016, [place] [employer]. Diabetes Care. 2016.39(Suppl 1). Performed By: #### L IPNF, 3016-3, 47609-2, 2132-06 #### [facility] CLIA [id number] [address] [place] [address] [place] Potassium [Moles/Vol] 4.4 mmol/L Normal 3.7-5.1 [facility] Comment on above: Order Comment: Speci men Type: BLOOD SPECIMEN Ordering Facility: [facility] Address: [address] [place] [address] Performed By: #### L IPNF, 6-3, 69499-1, 2132-06 #### [facility] CLIA [id number] [address] [place] [address] [place] Protein [Mass/Vol] 7.5 g/dL Normal 6.3-8.0 [facility] Comment on above: Order Comment: Speci men Type: BLOOD SPECIMEN Ordering Facility: [facility] Address: [address] [place] [address] Performed By: #### L IPNF, 6-3, 23784-0, 2132-06 #### [facility] CLIA [id number] [address] [place] [address] [place] Sodium [Moles/Vol] 142 mmol/L Normal 136-144 [facility] Comment on above: Order Comment: Speci men Type: BLOOD SPECIMEN Ordering Facility: [facility] Address: [address] [place] [address] Performed By: #### L IPNF, 6-3, 86139-2, 2132-06 #### [facility] CLIA [id number] [address] [place] [address] [place] Urea nitrogen [Mass/Vol] 7 mg/dL Low 9-24 [facility] Comment on above: Order Comment: Speci men Type: BLOOD SPECIMEN Ordering Facility: [facility] Address: [address] [place] [address] Performed By: #### L IPNF, 3015-3, , 2132-06 #### [facility] CLIA [id number] [address] [place] [address] [place] LIPID PANEL, NONFASTINGon Cholesterol [Mass/Vol] 153 mg/dL Normal <200 [facility] Comment on above: Order Comment: Speci men Type: BLOOD SPECIMEN Ordering Facility: [facility] Address: [address] [place] [address] Result Comment: <200 mg/dL, Desirable 200-239 mg/dL, Borderline high >239 mg/dL, High Performed By: #### L KARO, 3015-3, , 2132-06 #### [facility] CLIA [id number] [address] [place] [address] [place] HDL CHOLESTEROL, NF 30 mg/dL Low >39 [facility] Comment on above: Order Comment: Speci men Type: BLOOD SPECIMEN Ordering Facility: [facility] Address: [address] [place] [address] Result Comment: 40-5 9 mg/dL, Acceptable >59 mg/dL, High: Negative risk factor for coronary heart disease <40 mg/dL, Low: Positive risk factor for coronary heart disease Performed By: #### L KARO, 3015-3, , 2132-06 #### [facility] CLIA [id number] [address] [place] [address] [place] LDL CHOLESTEROL, NF 93 mg/dL Normal <100 [facility] Comment on above: Order Comment: Speci men Type: BLOOD SPECIMEN Ordering Facility: [facility] Address: [address] [place] [address] Result Comment: <100 mg/dL, Optimal 100-129 mg/dL, Near optimal/above optimal 130-159 mg/dL, Borderline high 160-189 mg/dL, High >189 mg/dL, Very high Secondary prevention optimal LDL Cholesterol levels are recommended to be < 70 mg/dL Performed By: #### L IPFRANKIE, 6-3, , 2132-06 #### [facility] CLIA [id number] [address] [place] [address] [place] LDL/HDL RATIO, NF 3.10 mg/dL High <2.54 [facility] Comment on above: Order Comment: Mervat reeder Type: BLOOD SPECIMEN Ordering Facility: [facility] Address: [address] [place] [address] Result Comment: Kaiden mejia: 1. National Cholesterol Education Program ATP III Guideline At-A-Glance Quick Desk Reference: National Heart, Lung, and Blood Burkett. National Institutes of Health. 2001: NIH Publication No. 01-3305. 2. An International Atherosclerosis Society position paper: global recommendations for the management of dyslipidemia: executive summary, Atherosclerosis. 2014: 232(2):410-413. Performed By: #### L KARO, 6-3, , 2132-06 #### [facility] CLIA [id number] [address] [place] [address] [place] NON HDL CHOL, NF 123 mg/dL Normal <130 [facility] Comment on above: Order Comment: Mervat reeder Type: BLOOD SPECIMEN Ordering Facility: [facility] Address: [address] [place] [address] Result Comment: <130 mg/dL, Optimal 130-159 mg/dL, Near optimal/above optimal 160-189 mg/dL, Borderline high 190-219 mg/dL, High >219 mg/dL, Very high Secondary prevention optimal non HDL Cholesterol levels are recommended to be <100 mg/dL Performed By: #### L IPNF, 6-3, 58260-6, 2132-06 #### [facility] CLIA [id number] [address] [place] [address] [place] T CHOL/HDL RATIO NF 5.10 mg/dL High <5.10 [facility] Comment on above: Order Comment: Mervat reeder Type: BLOOD SPECIMEN Ordering Facility: [facility] Address: [address] [place] [address] Performed By: #### L KARO, 6-3, , 2132-06 #### [facility] CLIA [id number] [address] [place] [address] [place] TRIGLYCERIDES, NF 149 mg/dL Normal <150 [facility] Comment on above: Order Comment: Speci men Type: BLOOD SPECIMEN Ordering Facility: [facility] Address: [address] [place] [address] Result Comment: <150 mg/dL, Normal 150-199 mg/dL, Borderline high 200-499 mg/dL, High >499 mg/dL, Very high Performed By: #### L KARO, 3015-3, , 2132-06 #### [facility] CLIA [id number] [address] [place] [address] [place] VLDL CHOLESTEROL, NF 30 mg/dL High <30 [facility] Comment on above: Order Comment: Speci men Type: BLOOD SPECIMEN Ordering Facility: [facility] Address: [address] [place] [address] Performed By: #### L KARO, 3015-3, , 2132-06 #### [facility] CLIA [id number] [address] [place] [address] [place] TSH SerPl-aCncon 06-26-2024 TSH Qn 2.440 m[IU]/L Normal 0.270-4.200 [facility] Comment on above: Order Comment: Speci men Type: BLOOD SPECIMEN Ordering Facility: [facility] Address: [address] [place] [address] Performed By: #### L KARO, 3015-3, , 2132-06 #### [facility] CLIA [id number] [address] [place] [address] [place] Vit B12 SerPl-mCncon 024 Cobalamin (Vitamin B12) [Mass/Vol] 200 pg/mL Low 232-1245 [facility] Comment on above: Order Comment: Speci men Type: BLOOD SPECIMEN Ordering Facility: [facility] Address: [address] [place] [address] Performed By: #### L IPNF, 3016-3, 17118-7, 2132-9 #### [facility] CLIA [id number] [address] [place] [address] STATES OF [facility] Absolute lymphocyte countOrd ered By: Deng Palmer on 09-06-2023 Lymphocytes Auto (Unsp spec) [#/Vol] 0.26 10*3/uL 0.83-4.51 [facility] Basophil percentageOrdered B y: Deng Palmer on 09-06-2023 Basophils/100 WBC (Bld) 0.4 % 0-1 [facility] Chloride [Moles/Vol] 103 mmol/L 98-107 [facility] Eosinophils/100 WBC (Bld) 0.2 % 0-5 [facility] Glucose [Mass/Vol] 96 mg/dL 74-106 [facility] Neutrophils (Bld) [#/Vol] 3.9 10*3/uL 2.0-7.7 [facility] Neutrophils/100 WBC (Bld) 81.9 % 47-70 [facility] Potassium [Moles/Vol] 3.9 mmol/L 3.5-5.1 [facility] Sodium [Moles/Vol] 136 mmol/L 136-145 [facility] WBC (Bld) [#/Vol] 4.8 10*3/uL 4.4-11.0 [facility] Blood erythrocytes count (nu mber/volume)Ordered By: Deng Palmer on 09-06-2023 RBC (Bld) [#/Vol] 4.54 10*6/uL 4.6-6.2 [facility] Blood hemoglobin measurement (mass/volume)Ordered By: Deng Palmer on 09-06-2023 Hemoglobin (Bld) [Mass/Vol] 14.0 g/dL 13.0-16.5 [facility] Blood lymphocytes/100 leukoc ytesOrdered By: Deng Palmer on 09-06-2023 Lymphocytes/100 WBC (Bld) 5.4 % 19-41 [facility] Blood manual differential co mment interpretation (narrative result)Ordered By: Deng Palmer on 09-06-2023 Manual differential comment Godwin (Bld) [Interp] SEE COMMENT [facility] Comment on above: LYMPHOPENIA NOTED Blood monocytes/100 leukocyt esOrdered By: Deng Palmer on 09-06-2023 Monocytes/100 WBC (Bld) 11.9 % 0-10 [facility] Blood platelet adequacy dete ction by light microscopyOrdered By: Deng Palmer on 09-06-2023 Platelets LM Ql (Bld) ADEQUATE ADEQ [facility] Blood platelet mean volumeOr dered By: Deng Palmer on 09-06-2023 Platelet mean volume (Bld) [Entitic vol] 9.7 fL 6.2-12.0 [facility] Determination of erythrocyte mean corpuscular volume (MCV)Ordered By: Deng Palmer on 09-06-2023 MCV (RBC) [Entitic vol] 92.1 fL 80-94 [facility] Hematocrit Auto (Bld) [Volum e fraction]Ordered By: Deng Palmer on 09-06-2023 Hematocrit (Bld) [Volume fraction] 41.8 % 40-54 [facility] Influenza virus A and B and SARS-CoV-2 (COVID-19) Ag panel - Upper respiratory specimOrdered By: Deng Palmer on 09-06-2023 SARS-CoV-2 & FLU Antigen (Rapid) SARS-CoV-2 (COVID 19) [facility] Laboratory - Chemistry and C hemistry - challengeOrdered By: Deng Palmer on 09-06-2023 CO2 [Moles/Vol] 26.0 mmol/L 21.0-32.0 [facility] Urea nitrogen/Creatinine [Mass ratio] 7.1 mg/mg 10-20 [facility] Laboratory - Hematology and Cell countsOrdered By: Deng Palmer on 09-06-2023 Anisocytosis Ql (Bld) RARE [facility] Erythrocyte distribution width (RBC) [Entitic vol] 43.7 fL 35.1-43.9 [facility] Erythrocyte distribution width (RBC) [Ratio] 12.9 % 11.6-14.6 [facility] Immature granulocytes/100 WBC (Bld) 0.200 % 0.0-0.9 [facility] Comment on above: IG% - Immature Granu locytes (promyelocytes, myelocytes and metamyelocytes) > 1% indicates that a LEFT SHIFT is Present. MCH (RBC) [Entitic mass] 30.8 pg 27.0-32.0 [facility] Nucleated RBC/100 WBC (Bld) [Ratio] 0 % 0-5 [facility] MCHC Auto (RBC) [Mass/Vol]Or dered By: Deng Palmer on 09-06-2023 MCHC (RBC) [Mass/Vol] 33.5 g/dL 32-36 [facility] Macrocytes detectionOrdered By: Deng Palmer on 09-06-2023 Macrocytes Ql (Bld) RARE [facility] No Panel InformationOrdered By: Deng Palmer on 09-06-2023 Estimated Creatinine Clearance Calc 83.33 ml/min [facility] Estimated GFR (MDRD) Amer 139 mL/min >60 [facility] Comment on above: GFR Calc Estimated GFR (MDRD) Non-Af Amer 115 mL/min >60 [facility] Comment on above: Non- GFR Calc Platelets bldOrdered By: Antonio Palmer on 09-06-2023 Platelets (Bld) [#/Vol] 163 10*3/uL 150-450 [facility] RBC morphologyOrdered By: Neymar Porter on 09-06-2023 RBC morphology finding Nom (Bld) N CHROM NORMAL NORM C&C [facility] Serum or plasma calcium yoni urement (mass/volume)Ordered By: Deng Palmer on 09-06-2023 Calcium [Mass/Vol] 9.0 mg/dL 8.5-10.1 [facility] Serum or plasma creatinine m easurement (mass/volume)Ordered By: Deng Palmer on 09-06-2023 Creatinine [Mass/Vol] 0.84 mg/dL 0.70-1.30 [facility] Comment on above: The validity of the calculated GFR & GFRAA in patients over 70 years has not been determined. Clinical correlation is essential. Serum or plasma urea nitroge n measurement (mass/volume)Ordered By: Deng Palmer on 09-06-2023 Urea nitrogen [Mass/Vol] 6 mg/dL 7-18 [facility] Thin prep Papanicolaou smear with manual screeningOrdered By: Deng Palmer on 09-06-2023 Thin prep Papanicolaou smear with manual screening 7 5-15 [facility] STREP A MOLECULAR (POC)on Procedural Control Valid [facility] Strep A (POCT) Negative Negative [facility] Absolute lymphocyte countOrd ered By: Hossein Weber on 05-30-2023 Lymphocytes Auto (Unsp spec) [#/Vol] 3.50 10*3/uL 0.83-4.51 [facility] Basophil percentageOrdered B y: Hossein Weber on 05-30-2023 Basophils/100 WBC (Bld) 0.7 % 0-1 [facility] Chloride [Moles/Vol] 105 mmol/L 98-107 [facility] Eosinophils/100 WBC (Bld) 1.1 % 0-5 [facility] Glucose [Mass/Vol] 101 mg/dL 74-106 [facility] Comment on above: Fasting Glucose resu lt from 100 to 125 mg/dL suggests IMPAIRED HOMEOSTASIS per A.D.A. criteria. Neutrophils (Bld) [#/Vol] 2.8 10*3/uL 2.0-7.7 [facility] Neutrophils/100 WBC (Bld) 40.1 % 47-70 [facility] Potassium [Moles/Vol] 4.0 mmol/L 3.5-5.1 [facility] Comment on above: Moderate Hemolysis, Result may be falsely increased. Sodium [Moles/Vol] 140 mmol/L 136-145 [facility] WBC (Bld) [#/Vol] 7.1 10*3/uL 4.4-11.0 [facility] Blood erythrocytes count (nu mber/volume)Ordered By: Hossein Weber on 05-30-2023 RBC (Bld) [#/Vol] 4.94 10*6/uL 4.6-6.2 [facility] Blood hemoglobin measurement (mass/volume)Ordered By: Hossein Weber on 05-30-2023 Hemoglobin (Bld) [Mass/Vol] 15.5 g/dL 13.0-16.5 [facility] Blood lymphocytes/100 leukoc ytesOrdered By: Hossein Weber on 05-30-2023 Lymphocytes/100 WBC (Bld) 49.6 % 19-41 [facility] Blood monocytes/100 leukocyt esOrdered By: Hossein Weber on 05-30-2023 Monocytes/100 WBC (Bld) 8.4 % 0-10 [facility] Blood platelet mean volumeOr dered By: Hossein Weber on 05-30-2023 Platelet mean volume (Bld) [Entitic vol] 9.6 fL 6.2-12.0 [facility] Determination of erythrocyte mean corpuscular volume (MCV)Ordered By: Hossein Weber on 05-30-2023 MCV (RBC) [Entitic vol] 93.5 fL 80-94 [facility] Hematocrit Auto (Bld) [Volum e fraction]Ordered By: Hossein Weber on 05-30-2023 Hematocrit (Bld) [Volume fraction] 46.2 % 40-54 [facility] Laboratory - Chemistry and C hemistry - challengeOrdered By: Hossein Weber on 05-30-2023 CO2 [Moles/Vol] 29.0 mmol/L 21.0-32.0 [facility] Urea nitrogen/Creatinine [Mass ratio] 7.8 mg/mg 10-20 [facility] Laboratory - Hematology and Cell countsOrdered By: Hossein Weber on 05-30-2023 Erythrocyte distribution width (RBC) [Entitic vol] 43.7 fL 35.1-43.9 [facility] Erythrocyte distribution width (RBC) [Ratio] 12.6 % 11.6-14.6 [facility] Immature granulocytes/100 WBC (Bld) 0.100 % 0.0-0.9 [facility] Comment on above: IG% - Immature Granu locytes (promyelocytes, myelocytes and metamyelocytes) > 1% indicates that a LEFT SHIFT is Present. MCH (RBC) [Entitic mass] 31.4 pg 27.0-32.0 [facility] Nucleated RBC/100 WBC (Bld) [Ratio] 0 % 0-5 [facility] MCHC Auto (RBC) [Mass/Vol]Or dered By: Hossein Weber on 05-30-2023 MCHC (RBC) [Mass/Vol] 33.5 g/dL 32-36 [facility] No Panel InformationOrdered By: Hossein Weber on 05-30-2023 Troponin I High Sensitivity < 3 pg/mL 3.0-78.0 [facility] Comment on above: Please Note: [place] t Units and Gender Specific Reference Ranges. For more information see Policy Stat Procedure [place] High Sensitivity Troponin (TNIH) and attachments. Estimated Creatinine Clearance Calc 80.07 ml/min [facility] Estimated GFR (MDRD) Amer 131 mL/min >60 [facility] Comment on above: GFR Calc Estimated GFR (MDRD) Non-Af Amer 108 mL/min >60 [facility] Comment on above: Non- GFR Calc Platelets bldOrdered By: Raul Weber on 05-30-2023 Platelets (Bld) [#/Vol] 190 10*3/uL 150-450 [facility] Serum or plasma calcium yoni urement (mass/volume)Ordered By: Hossein Weber on 05-30-2023 Calcium [Mass/Vol] 9.2 mg/dL 8.5-10.1 [facility] Serum or plasma creatinine m easurement (mass/volume)Ordered By: Hossein Weber on 05-30-2023 Creatinine [Mass/Vol] 0.89 mg/dL 0.70-1.30 [facility] Comment on above: The validity of the calculated GFR & GFRAA in patients over 70 years has not been determined. Clinical correlation is essential. Serum or plasma urea nitroge n measurement (mass/volume)Ordered By: Hossein Weber on 05-30-2023 Urea nitrogen [Mass/Vol] 7 mg/dL 7-18 [facility] Thin prep Papanicolaou smear with manual screeningOrdered By: Hossein Weber on 05-30-2023 Thin prep Papanicolaou smear with manual screening 6 -15 [facility] XR Chest PA and Lateralon IMPRESSION: No active disease. Chick Sexer: OTILIO Transcribe Date/Time: Mar 18 2021 5:45P Dictated by : RAMOS MATTA MD This examination was interpreted and the report reviewed and electronically signed by: RAMOS MATTA MD on Mar 18 2021 5:46PM [facility] * * *Final Report* [...] tissues: Unremarkable. DIVISION OF RADIOLOGY Provider, Jim [facility] - 03/18/2021 * * *Final Report* * [...] tissues: Unremarkable. IMPRESSION IMPRESSION: No active disease. Chick Sexer: PSCB Transcribe Date/Time: Mar 18 2021 5:45P Dictated by : RAMOS MATTA MD This examination was interpreted and the report reviewed and electronically signed by: RAMOS MATTA MD on Mar 18 2021 5:46PM EST [facility] Radiology Study observation (narrative) Lelo Rojas XR Chest PA and LateralOrder ed By: [facility] Provider on 03-18-2021 [facility] Vital Signs Date Time Vital Sign Value Performing Clinician Facility 06-16-2025 22:27-0400 Body temperature 98.1 [degF] Dr. Moustapha Gtz MD Work Phone: [facility] 06-16-2025 22:27-0400 Diastolic blood pressure 67 mm[Hg] Dr. Moustapha Gtz MD Work Phone: 6(681)862-184468 [place] [address] 06-16-2025 22:27-0400 Heart rate 78 /min Dr. Moustapha Gtz MD Work Phone: 7(600)149-899668 [place] [address] 06-16-2025 22:27-0400 Respiratory rate 16 /min Dr. Moustapha Gtz MD Work Phone: 3(304)908-485268 [place] [address] 06-16-2025 22:27-0400 SaO2% (BldA) [Mass fraction] 100 % Dr. Moustapha Gtz MD Work Phone: 3(793)040-293568 [place] [address] 06-16-2025 22:27-0400 Systolic blood pressure 107 mm[Hg] Dr. Moustapha Gtz MD Work Phone: 4(383)542-778668 [place] [address] 06-16-2025 21:34-0400 Body height 162.[address] Moustapha Gtz MD Work Phone: 8(990)238-737368 [place] [address] 06-16-2025 21:34-0400 Body mass index (BMI) [Ratio] 19.5 kg/m2 Dr. Moustapha Gtz MD Work Phone: 6(523)089-106368 [place] [address] 06-16-2025 21:34-0400 Body weight 51.[address] Moustapha Gtz MD Work Phone: 0(640)234-448868 [place] [address] 04-18-2025 11:03-0400 Body temperature 97.9 [degF] Dr. Moustapha Gtz MD Work Phone: 6(905)902-610168 [place] [address] 04-18-2025 11:03-0400 Diastolic blood pressure 62 mm[Hg] Dr. Moustapha Gtz MD Work Phone: 9(015)292-637168 [place] [address] 04-18-2025 11:03-0400 Heart rate 75 /min Dr. Moustapha Gtz MD Work Phone: 4(105)729-465968 [place] [address] 04-18-2025 11:03-0400 Respiratory rate 17 /min Dr. Moustapha Gtz MD Work Phone: 2(745)447-154768 [place] [address] 04-18-2025 11:03-0400 SaO2% (BldA) [Mass fraction] 100 % Dr. Moustapha Gtz MD Work Phone: 0(954)151-447568 [place] [address] 04-18-2025 11:03-0400 Systolic blood pressure 103 mm[Hg] Dr. Moustapha Gtz MD Work Phone: 4(888)144-261668 [place] [address] 04-18-2025 10:02-0400 Body height 167.[address] Moustapha Gtz MD Work Phone: 3(453)267-231568 [place] [address] 04-18-2025 10:02-0400 Body mass index (BMI) [Ratio] 17.7 kg/m2 Dr. Moustapha Gtz MD Work Phone: 9(919)702-818668 [place] [address] 04-18-2025 10:02-0400 Body weight 49.[address] Moustapha Gtz MD Work Phone: 6(789)171-596568 [place] [address] 03-16-2025 22:53-0400 Body temperature 98.7 [degF] Dr. Moustapha Gtz MD Work Phone: 3(572)055-826368 [place] [address] 03-16-2025 22:53-0400 Diastolic blood pressure 67 mm[Hg] Dr. Moustapha Gtz MD Work Phone: 5(113)101-078268 [place] [address] 03-16-2025 22:53-0400 Heart rate 77 /min Dr. Moustapha Gtz MD Work Phone: 4(196)889-208368 [place] [address] 03-16-2025 22:53-0400 Respiratory rate 16 /min Dr. Moustapha Gtz MD Work Phone: 0(596)353-360168 [place] [address] 03-16-2025 22:53-0400 SaO2% (BldA) [Mass fraction] 100 % Dr. Moustapha Gtz MD Work Phone: 4(490)197-800368 [place] [address] 03-16-2025 22:53-0400 Systolic blood pressure 116 mm[Hg] Dr. Moustapha Gtz MD Work Phone: 3(888)995-681368 [place] [address] 03-16-2025 21:52-0400 Body height 167.[address] Moustapha Gtz MD Work Phone: 9(045)308-651068 [place] [address] 03-16-2025 21:52-0400 Body mass index (BMI) [Ratio] 17 kg/m2 Dr. Moustapha Gtz MD Work Phone: 4(135)671-296968 [place] [address] 03-16-2025 21:52-0400 Body weight 47.[address] Moustapha Gtz MD Work Phone: 4(538)[phone] [address] [address] 01-11-2025 17:26-0400 Body height 167.[address] Moustapha Gtz MD Work Phone: 0(982)[phone] [address] [address] 01-11-2025 17:26-0400 Body mass index (BMI) [Ratio] 17.1 kg/m2 Dr. Moustapha Gtz MD Work Phone: 1(291)638-825968 [place] [address] 01-11-2025 17:26-0400 Body temperature 97 [degF] Dr. Moustapha Gtz MD Work Phone: 9(980)241-482768 [place] [address] 01-11-2025 17:26-0400 Body weight 48.[address] Moustapha Gtz MD Work Phone: 7(638)244-607868 [place] [address] 01-11-2025 17:26-0400 Diastolic blood pressure 73 mm[Hg] Dr. Moustapha Gtz MD Work Phone: 4(524)520-553668 [place] [address] 01-11-2025 17:26-0400 Heart rate 83 /min Dr. Moustapha Gtz MD Work Phone: 7(578)622-997268 [place] [address] 01-11-2025 17:26-0400 Respiratory rate 18 /min Dr. Moustapha Gtz MD Work Phone: 7(260)903-777968 [place] [address] 01-11-2025 17:26-0400 SaO2% (BldA) [Mass fraction] 100 % Dr. Moustapha Gtz MD Work Phone: 4(922)860-344368 [place] [address] 01-11-2025 17:26-0400 Systolic blood pressure 127 mm[Hg] Dr. Moustapha Gtz MD Work Phone: 3(111)733-401868 [place] [address] 11-05-2024 18:01-0500 Diastolic blood pressure 89 mm[Hg] Dr. Moustapha Gtz MD Work Phone: 8(228)533-044536 [place] [address] 11-05-2024 18:01-0500 Systolic blood pressure 128 mm[Hg] Dr. Moustapha Gtz MD Work Phone: 1(301)369-295968 [place] [address] 11-05-2024 15:49-0500 Body mass index (BMI) [Ratio] 16.9 kg/m2 Dr. Moustapha Gtz MD Work Phone: 1(574)033-978668 [place] [address] 11-05-2024 15:49-0500 Body temperature 97 [degF] Dr. Moustapha Gtz MD Work Phone: 4(886)723-239968 [place] [address] 11-05-2024 15:49-0500 Body weight 47.[address] Moustapha Gtz MD Work Phone: 2(026)706-155868 [place] [address] 11-05-2024 15:49-0500 Heart rate 106 /min Dr. Moustapha Gtz MD Work Phone: 0(704)820-549636 [place] [address] 11-05-2024 15:49-0500 Respiratory rate 15 /min Dr. Moustapha Gtz MD Work Phone: 4(299)500-751968 [place] [address] 11-05-2024 15:49-0500 SaO2% (BldA) [Mass fraction] 97 % Dr. Moustapha Gtz MD Work Phone: [facility] 07-23-2024 10:02-0400 Body mass index (BMI) [Ratio] 18.38 kg/m2 Genevieve Wade APRN.CUE WORKER Work Phone: [facility] 07-23-2024 10:02-0400 Body temperature 98.6 [degF] Genevieve Wade APRN.CUE WORKER Work Phone: [facility] 07-23-2024 10:02-0400 Body weight 50.4 kg Genevieve Wade APRN.CUE WORKER Work Phone: [facility] 07-23-2024 10:02-0400 Diastolic blood pressure 75 mm[Hg] Genevieve Mauro NUCLEAR FUELS RECLAMATION ENGINEER.CUE WORKER Work Phone: [facility] 07-23-2024 10:02-0400 Heart rate 92 /min Genevieve Wade NUCLEAR FUELS RECLAMATION ENGINEER.CUE WORKER Work Phone: [facility] 07-23-2024 10:02-0400 Respiratory rate 18 /min Genevieve Wade NUCLEAR FUELS RECLAMATION ENGINEER.CUE WORKER Work Phone: [facility] 07-23-2024 10:02-0400 SaO2% (BldA) [Mass fraction] 100 % Genevieve Wade NUCLEAR FUELS RECLAMATION ENGINEER.CUE WORKER Work Phone: [facility] 07-23-2024 10:02-0400 Systolic blood pressure 112 mm[Hg] Genevieve Wade NUCLEAR FUELS RECLAMATION ENGINEER.CUE WORKER Work Phone: [facility] 06-26-2024 12:03-0400 Body height 165.6 cm Daryn Gtz MD Work Phone: [facility] 06-26-2024 12:03-0400 Body mass index (BMI) [Ratio] 19.09 kg/m2 Daryn Gtz MD Work Phone: [facility] 06-26-2024 12:03-0400 Body weight 52.34 kg Daryn Gtz MD Work Phone: [facility] 06-26-2024 12:03-0400 Diastolic blood pressure 66 mm[Hg] Daryn Gtz MD Work Phone: [facility] 06-26-2024 12:03-0400 Heart rate 87 /min Daryn Gtz MD Work Phone: [facility] 06-26-2024 12:03-0400 Respiratory rate 16 /min Daryn Gtz MD Work Phone: [facility] 06-26-2024 12:03-0400 SaO2% (BldA) [Mass fraction] 99 % Daryn Gtz MD Work Phone: [facility] 06-26-2024 12:03-0400 Systolic blood pressure 116 mm[Hg] Daryn Gtz MD Work Phone: [facility] 05-11-2024 10:56-0400 Body temperature 97.59 [degF] Daryn Gtz MD Work Phone: [facility] 05-11-2024 10:56-0400 Body weight 52.6 kg Daryn Gtz MD Work Phone: [facility] 05-11-2024 10:56-0400 Diastolic blood pressure 64 mm[Hg] Daryn Gtz MD Work Phone: [facility] 05-11-2024 10:56-0400 Heart rate 131 /min Daryn Gtz MD Work Phone: [facility] Comment on above: 132 manual 05-11-2024 10:56-0400 Respiratory rate 16 /min Daryn Gtz MD Work Phone: [facility] 05-11-2024 10:56-0400 SaO2% (BldA) [Mass fraction] 97 % Daryn Gtz MD Work Phone: [facility] 05-11-2024 10:56-0400 Systolic blood pressure 130 mm[Hg] Daryn Gtz MD Work Phone: [facility] 01-15-2024 11:57-0400 Body temperature 98.4 [degF] Kevin Stewart NUCLEAR FUELS RECLAMATION ENGINEER.CUE WORKER Work Phone: [facility] 01-15-2024 11:57-0400 Body weight 48.4 kg Kevin Stewart NUCLEAR FUELS RECLAMATION ENGINEER.CUE WORKER Work Phone: [facility] 01-15-2024 11:57-0400 Diastolic blood pressure 72 mm[Hg] Kevin Pendlemiracle NUCLEAR FUELS RECLAMATION ENGINEER.CUE WORKER Work Phone: [facility] 01-15-2024 11:57-0400 Heart rate 89 /min Kevin Terry NUCLEAR FUELS RECLAMATION ENGINEER.CUE WORKER Work Phone: [facility] 01-15-2024 11:57-0400 Respiratory rate 18 /min Kevin Pendlemiracle NUCLEAR FUELS RECLAMATION ENGINEER.CUE WORKER Work Phone: [facility] 01-15-2024 11:57-0400 SaO2% (BldA) [Mass fraction] 100 % Kevin Stewart NUCLEAR FUELS RECLAMATION ENGINEER.CUE WORKER Work Phone: [facility] 01-15-2024 11:57-0400 Systolic blood pressure 122 mm[Hg] Kevin Stewart NUCLEAR FUELS RECLAMATION ENGINEER.CUE WORKER Work Phone: [facility] 01-10-2024 22:00-0400 Body temperature 97 [degF] [facility] 01-10-2024 22:00-0400 Diastolic blood pressure 78 mm[Hg] [facility] 01-10-2024 22:00-0400 Heart rate 78 /min [facility] 01-10-2024 22:00-0400 Respiratory rate 16 /min [facility] 01-10-2024 22:00-0400 SaO2% (BldA) [Mass fraction] 100 % [facility] 01-10-2024 22:00-0400 Systolic blood pressure 119 mm[Hg] [facility] 01-10-2024 19:51-0400 Body height 167.64 cm [facility] 01-10-2024 19:51-0400 Body mass index (BMI) [Ratio] 16.2 kg/m2 [facility] 01-10-2024 19:51-0400 Body weight 45.81 kg [facility] 09-06-2023 19:48-0500 Diastolic blood pressure 53 mm[Hg] [facility] 09-06-2023 19:48-0500 Heart rate 100 /min [facility] 09-06-2023 19:48-0500 Respiratory rate 20 /min [facility] 09-06-2023 19:48-0500 SaO2% (BldA) [Mass fraction] 98 % [facility] 09-06-2023 19:48-0500 Systolic blood pressure 94 mm[Hg] [facility] 09-06-2023 17:55-0500 Body temperature 98.2 [degF] [facility] 09-06-2023 14:52-0500 Body height 167.64 cm [facility] 09-06-2023 14:52-0500 Body mass index (BMI) [Ratio] 16 kg/m2 [facility] 09-06-2023 14:52-0500 Body weight 44.99 kg [facility] 08-14-2023 17:46-0500 Body height 167.64 cm [facility] 08-14-2023 17:46-0500 Body mass index (BMI) [Ratio] 16.1 kg/m2 [facility] 08-14-2023 17:46-0500 Body temperature 97.2 [degF] [facility] 08-14-2023 17:46-0500 Body weight 45.38 kg [facility] 08-14-2023 17:46-0500 Diastolic blood pressure 78 mm[Hg] [facility] 08-14-2023 17:46-0500 Heart rate 87 /min [facility] 08-14-2023 17:46-0500 Respiratory rate 16 /min [facility] 08-14-2023 17:46-0500 SaO2% (BldA) [Mass fraction] 100 % [facility] 08-14-2023 17:46-0500 Systolic blood pressure 137 mm[Hg] [facility] 07-02-2023 17:40-0400 Body temperature 97.39 [degF] [facility] NUCLEAR FUELS RECLAMATION ENGINEER.CUE WORKER Work Phone: [facility] 07-02-2023 17:40-0400 Body weight 45.81 kg [facility] NUCLEAR FUELS RECLAMATION ENGINEER.CUE WORKER Work Phone: [facility] 07-02-2023 17:40-0400 Diastolic blood pressure 78 mm[Hg] [facility] NUCLEAR FUELS RECLAMATION ENGINEER.CUE WORKER Work Phone: [facility] 07-02-2023 17:40-0400 Heart rate 104 /min [facility] NUCLEAR FUELS RECLAMATION ENGINEER.CUE WORKER Work Phone: [facility] 07-02-2023 17:40-0400 Respiratory rate 18 /min [facility] NUCLEAR FUELS RECLAMATION ENGINEER.CUE WORKER Work Phone: [facility] 07-02-2023 17:40-0400 SaO2% (BldA) [Mass fraction] 100 % [facility] NUCLEAR FUELS RECLAMATION ENGINEER.CUE WORKER Work Phone: [facility] 07-02-2023 17:40-0400 Systolic blood pressure 118 mm[Hg] [facility] NUCLEAR FUELS RECLAMATION ENGINEER.CUE WORKER Work Phone: [facility] 05-30-2023 13:00-0400 Respiratory rate 18 /min [facility] 05-30-2023 12:07-0400 SaO2% (BldA) [Mass fraction] 99 % [facility] 05-30-2023 10:46-0400 Body mass index (BMI) [Ratio] 16.1 kg/m2 [facility] 05-30-2023 10:46-0400 Body temperature 97.3 [degF] [facility] 05-30-2023 10:46-0400 Body weight 45.4 kg [facility] 05-30-2023 10:46-0400 Diastolic blood pressure 78 mm[Hg] [facility] 05-30-2023 10:46-0400 Heart rate 67 /min [facility] 05-30-2023 10:46-0400 Systolic blood pressure 133 mm[Hg] [facility] 12-10-2022 14:43-0500 Body temperature 98.91 [degF] [facility] NUCLEAR FUELS RECLAMATION ENGINEER.CUE WORKER Work Phone: [facility] 12-10-2022 14:43-0500 Body weight 48.08 kg [facility] NUCLEAR FUELS RECLAMATION ENGINEER.CUE WORKER Work Phone: [facility] 12-10-2022 14:43-0500 Diastolic blood pressure 60 mm[Hg] [facility] NUCLEAR FUELS RECLAMATION ENGINEER.CUE WORKER Work Phone: [facility] 12-10-2022 14:43-0500 Heart rate 85 /min Kevin Pendbreanne NUCLEAR FUELS RECLAMATION ENGINEER.CUE WORKER Work Phone: [facility] 12-10-2022 14:43-0500 Respiratory rate 16 /min [facility] NUCLEAR FUELS RECLAMATION ENGINEER.CUE WORKER Work Phone: [facility] 12-10-2022 14:43-0500 SaO2% (BldA) [Mass fraction] 98 % Kevin Chloebury NUCLEAR FUELS RECLAMATION ENGINEER.CUE WORKER Work Phone: [facility] 12-10-2022 14:43-0500 Systolic blood pressure 112 mm[Hg] Kevin Pendlebury NUCLEAR FUELS RECLAMATION ENGINEER.CUE WORKER Work Phone: [facility] 11-12-2022 08:52-0500 Body temperature 98.91 [degF] Melba Praisler-Wood NUCLEAR FUELS RECLAMATION ENGINEER.CUE WORKER Work Phone: [facility] 11-12-2022 08:52-0500 Body weight 48.17 kg Melba Praisler-Wood NUCLEAR FUELS RECLAMATION ENGINEER.CUE WORKER Work Phone: [facility] 11-12-2022 08:52-0500 Diastolic blood pressure 60 mm[Hg] Melba Praisler-Wood NUCLEAR FUELS RECLAMATION ENGINEER.CUE WORKER Work Phone: [facility] 11-12-2022 08:52-0500 Heart rate 118 /min Melba Praisler-Wood NUCLEAR FUELS RECLAMATION ENGINEER.CUE WORKER Work Phone: [facility] 11-12-2022 08:52-0500 Respiratory rate 18 /min Melba Praisler-Wood NUCLEAR FUELS RECLAMATION ENGINEER.CUE WORKER Work Phone: [facility] 11-12-2022 08:52-0500 SaO2% (BldA) [Mass fraction] 97 % Melba Praisler-Wood NUCLEAR FUELS RECLAMATION ENGINEER.CUE WORKER Work Phone: [facility] 11-12-2022 08:52-0500 Systolic blood pressure 110 mm[Hg] Melba Praisler-Wood NUCLEAR FUELS RECLAMATION ENGINEER.CUE WORKER Work Phone: [facility] 10-15-2022 17:51-0500 Body temperature 98.71 [degF] Skye Athy PA-C Work Phone: [facility] 10-15-2022 17:51-0500 Body weight 49.62 kg Skye Athy PA-C Work Phone: [facility] 10-15-2022 17:51-0500 Diastolic blood pressure 62 mm[Hg] Skye Athy PA-C Work Phone: [facility] 10-15-2022 17:51-0500 Heart rate 68 /min Skye Athy PA-C Work Phone: [facility] 10-15-2022 17:51-0500 Respiratory rate 16 /min Skye Athy PA-C Work Phone: [facility] 10-15-2022 17:51-0500 SaO2% (BldA) [Mass fraction] 99 % Skye Athy PA-C Work Phone: [facility] 10-15-2022 17:51-0500 Systolic blood pressure 114 mm[Hg] Skye Athy PA-C Work Phone: [facility] 06-05-2022 16:00-0400 Body temperature 98.01 [degF] Rach Alireza NUCLEAR FUELS RECLAMATION ENGINEER.CUE WORKER Work Phone: [facility] 06-05-2022 16:00-0400 Body weight 49.26 kg Rach Alireza NUCLEAR FUELS RECLAMATION ENGINEER.CUE WORKER Work Phone: [facility] 06-05-2022 16:00-0400 Diastolic blood pressure 78 mm[Hg] Rach Alireaz NUCLEAR FUELS RECLAMATION ENGINEER.CUE WORKER Work Phone: [facility] 06-05-2022 16:00-0400 Heart rate 98 /min Rach Alireza NUCLEAR FUELS RECLAMATION ENGINEER.CUE WORKER Work Phone: [facility] 06-05-2022 16:00-0400 Respiratory rate 16 /min Rcah Alireza NUCLEAR FUELS RECLAMATION ENGINEER.CUE WORKER Work Phone: [facility] 06-05-2022 16:00-0400 SaO2% (BldA) [Mass fraction] 99 % Rach Alireza NUCLEAR FUELS RECLAMATION ENGINEER.CUE WORKER Work Phone: [facility] 06-05-2022 16:00-0400 Systolic blood pressure 118 mm[Hg] Rach Alireza NUCLEAR FUELS RECLAMATION ENGINEER.CUE WORKER Work Phone: [facility] Encounters Encounter Date Encounter Type Care Provider Facility Start: 06-21-2025 End: 06-21-2025 ambulatory LIVIER FRENCH Facility:[facility] Start: 06-21-2025 Encounter for genera l adult medical examination without abnormal findings LIVIER JIM [facility] Start: 06-16-2025 End: 06-16-2025 Emergency department patient visit Dr. Moustapha Gtz MD Work Phone: -Emergency Department Work Phone: Start: 04-18-2025 End: 04-18-2025 Emergency department patient [...] Start: 07-23-2024 End: 07-23-2024 ambulatory DARYN GTZ Facility:[facility] Start: 07-23-2024 End: 07-23-2024 Patient encounter procedure Genevieve Wade APRN.CNP Work Phone: [facility] Comment on above: Lower resp. tract in fection (Primary Dx) Start: 07-20-2024 End: 07-20-2024 Emergency department patient visit Moustapha Gtz Facility:[facility] Start: 06-28-2024 End: 06-28-2024 Emergency department patient visit Moustapha Gtz Facility:[facility] Start: 06-27-2024 End: 07-04-2024 Telephone encounter Daryn Gtz MD Work Phone: [facility] [place] Comment on above: Results Start: 06-26-2024 End: 06-26-2024 ambulatory DARYN GTZ Facility:[facility] Start: 06-26-2024 End: 06-26-2024 Patient encounter procedure Daryn Gtz MD Work Phone: [facility] Comment on above: Encounter for medica l examination to establish care (Primary Dx); TERI (generalized anxiety disorder); Bipolar affective disorder, current episode mixed, current episode severity unspecified (HCC); Intermittent asthma without complication, unspecified asthma severity; Tobacco use Start: 06-26-2024 End: 06-26-2024 Patient encounter status Daryn Gtz MD Work Phone: [facility] Work Phone: Start: 06-26-2024 End: 06-26-2024 ambulatory DARYN GTZ Facility:[facility] Start: 06-26-2024 Encounter for genera l adult medical examination without abnormal findings DARYN GTZ [facility] Start: 05-11-2024 End: 05-11-2024 Patient encounter procedure Daryn tGz MD Work Phone: [facility] Comment on above: Headache, unspecifie d headache type (Primary Dx); Injury of head, subsequent encounter; Tachycardia; Right atrial enlargement; Tobacco use; Black hairy tongue Start: 01-15-2024 End: 01-15-2024 Office outpatient visit 25 minutes Kevin Stewart NUCLEAR FUELS RECLAMATION ENGINEER.CUE WORKER Work Phone: [facility] Comment on above: Moderate persistent asthma with (acute) exacerbation (Primary Dx) Start: 01-10-2024 End: 01-10-2024 Emergency department patient visit [facility] Work Phone: Start: 09-06-2023 End: 09-06-2023 Emergency department patient visit [facility] Work Phone: Start: 08-14-2023 End: 08-14-2023 Emergency department patient visit [facility] Work Phone: Start: 07-02-2023 End: 07-02-2023 Office outpatient visit 15 minutes Kevin Stewart NUCLEAR FUELS RECLAMATION ENGINEER.CUE WORKER Work Phone: [facility] Comment on above: Pharyngitis, unspeci fied etiology (Primary Dx); Viral illness Start: 05-30-2023 End: 05-30-2023 Emergency department patient visit [facility] Work Phone: Start: 12-10-2022 End: 12-10-2022 Patient encounter procedure Kevin Stewart APRN.CUE WORKER Work Phone: [facility] Comment on above: Loose stools (Primar y Dx) Start: 11-12-2022 End: 11-12-2022 Patient encounter procedure Melba Jones NUCLEAR FUELS RECLAMATION ENGINEER.CUE WORKER Work Phone: [facility] Comment on above: Acute otitis externa of left ear, unspecified type (Primary Dx) Start: 10-15-2022 End: 10-15-2022 Patient encounter procedure Skye Maradiaga PA-C Work Phone: [facility] Comment on above: Diarrhea, unspecifie d type (Primary Dx) Start: 06-05-2022 End: 06-05-2022 Patient encounter procedure Rach Lay NUCLEAR FUELS RECLAMATION ENGINEER.CUE WORKER Work Phone: [facility] Comment on above: Acute cough (Primary Dx); Nasal congestion; Wheezing; Suspected COVID-19 virus infection Start: 03-18-2021 End: 03-18-2021 Subsequent hospital visit by physician Xr [facility] Work Phone: Radiology Comment on above: Rhonchi [R09.89] Procedures Date Procedure Procedure Detail Performing Clinician Start: 05-11-2024 Ecg routine ecg w/le ast 12 lds i&r only [facility] Provider Start: 09-06-2023 Plain chest X-ray Start: 09-06-2023 SARS-CoV-2 & FLU Ant igen (Rapid) Start: 07-02-2023 STREP A MOLECULAR (POC) Kevin Stewart NUCLEAR FUELS RECLAMATION ENGINEER.CUE WORKER Work Phone: Start: 05-30-2023 Plain chest X-ray Start: 03-18-2021 Radiologic exam ches t 2 views Genevieve Wade NUCLEAR FUELS RECLAMATION ENGINEER.CUE WORKER Work Phone: Plan of Treatment Date Care Activity Detail Author Start: 06-26-2025 Annual PCP Team Asbestos Worker donte Disease Visit Annual PCP Team Chronic Disease Visit [facility] Start: 06-26-2025 Covid-19 Vaccine ( season) Covid-19 Vaccine ( season) [facility] Comment on above: Postponed from 06/04 (Declined at this time) Start: 06-26-2025 Hepatitis C screening Hepatitis C Sc allegraning [facility] Comment on above: Postponed from 06/18 (Declined at this time) Start: 06-26-2025 HIV screening HIV Screening [facility] Comment on above: Postponed from 06/18 (Declined at this time) Start: 06-26-2025 Pneumococcal vaccination Pneum ococcal Vaccine (1 of 2 - PCV) [facility] Comment on above: Postponed from 06/18 (Declined at this time) Start: 06-26-2025 Urine microalbumin profile DTaP,Tdap,Td Vaccine (7 - Td or Tdap) [facility] Comment on above: Postponed from 09/14 (Declined at this time) Start: 05-11-2025 Annual PCP Team Asbestos Worker donte Disease Visit Annual PCP Team Chronic Disease Visit [facility] Start: 04-18-2025 [facility] Start: 04-02-2025 Influenza vaccination Influenza Vacc ine (#1) [facility] Comment on above: Postponed from 06/04 (Declined at this time) Start: 03-16-2025 [facility] Start: 01-11-2025 [facility] Start: 12-25-2024 End: 12-25-2024 Patient encounter procedure 12/25/2024 2:40 PM EDT Office Visit [facility] [place] [address] [place], [place] [id number] 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 [address] [place] [address] 6 month follow up [facility] Comment on above: 6 month follow up Start: 11-05-2024 [facility] Start: 09-26-2024 End: 12-26-2024 25-hydroxyvitamin D3 [Mass/volume] in Serum or Plasma VITAMIN D 25 HYDROXY Lab Routine Vitamin D deficiency Expected: 09/26/2024, Expires: 12/26/2024 [facility] Work Phone: Comment on above: Expected: 09/26/2024 , Expires: 12/26/2024 Start: 07-31-2024 End: 07-31-2024 ambulatory 07/31/2024 1:30 PM EDT Procedure [facility] [address] [place] [address] [facility] [address] [place] [address] ASTHMA [facility] Comment on above: ASTHMA Start: 07-31-2024 End: 07-31-2024 Patient encounter procedure 07/31/2024 12:20 PM EDT Office Visit [facility] [place] [address] [place] [address] Daryn Gtz MD [address] [place] [address] express care follow-up [facility] [place] Comment on above: express care follow- up Start: 06-28-2024 End: 06-28-2024 ambulatory 06/28/2024 1:45 PM EDT Procedure [facility] [address] [place] [address] [facility], [facility] [address] [place] [address] Intermittent asthma without complication, unspecified asthma severity [J45.20] [facility] Comment on above: Intermittent asthma without complication, unspecified asthma severity [J45.20] Start: 06-26-2024 End: 09-25-2024 25-hydroxyvitamin D3 [Mass/volume] in Serum or Plasma [facility] Comment on above: Expected: 06/26/2024 , Expires: 09/25/2024 Start: 06-26-2024 End: 09-25-2024 Cobalamin (Vitamin B12) [Mass/volume] in Serum or Plasma [facility] Comment on above: Expected: 06/26/2024 , Expires: 09/25/2024 Start: 06-26-2024 End: 09-25-2024 Comprehensive metabolic 2000 panel - Serum or Plasma [facility] Comment on above: Expected: 06/26/2024 , Expires: 09/25/2024 Start: 06-26-2024 End: 09-25-2024 LIPID PANEL, NONFASTING [facility] Comment on above: Expected: 06/26/2024 , Expires: 09/25/2024 Start: 06-26-2024 End: 09-25-2024 Thyrotropin [Units/volume] in Serum or Plasma [facility] Comment on above: Expected: 06/26/2024 , Expires: 09/25/2024 Start: 06-26-2024 End: 06-26-2024 Patient encounter procedure 06/26/2024 12:20 PM EDT Office Visit [facility] [place] [address] [place] [address] Daryn Gtz MD [address] [place] [address] Establish Care Visit [facility] [place] Comment on above: Establish Care Visit Start: 06-04-2024 Influenza vaccination C [facility] Start: 01-10-2024 [facility] Start: 10-04-2023 Behavioral Health Screening Behavioral Health Screening [facility] Start: 09-06-2023 [facility] Start: 08-14-2023 [facility] Start: 07-02-2023 End: 07-16-2023 Influenza virus A and B RNA and SARS-CoV-2 (COVID-19) N gene panel - Respiratory specimen by REI with probe detection [facility] Work Phone: Comment on above: Expected: 07/02/2023 , Expires: 07/16/2023 Start: 06-04-2023 Covid-19 Vaccine () Covid-19 Vaccine () [facility] Start: 06-04-2023 Influenza vaccination Influenza Vacc ine (#1) [facility] Start: 05-30-2023 [facility] Start: 10-15-2022 End: 10-29-2022 Influenza virus A and B RNA and SARS-CoV-2 (COVID-19) N gene panel - Respiratory specimen by REI with probe detection COVID WITH FLUA+B, ROUTINE Microbiology Routine Diarrhea, unspecified type Expected: 10/15/2022, Expires: 10/29/2022 [facility] Work Phone: Comment on above: Expected: 10/15/2022 , Expires: 10/29/2022 Start: 10-04-2022 DEPRESSION ASSESSMENT DEPRESSION ASS ESSMENT [facility] Start: 09-14-2022 Urine microalbumin profile DTaP,Tdap,Td Vaccine (7 - Td or Tdap) [facility] Start: 06-05-2022 End: 06-19-2022 SARS-CoV-2 (COVID-19) RNA [Presence] in Respiratory specimen by REI with probe detection 2019 CORONAVIRUS Microbiology Routine Acute cough Nasal congestion Suspected COVID-19 virus infection Expected: 06/05/2022, Expires: 06/19/2022 [facility] Work Phone: Comment on above: Expected: 06/05/2022 , Expires: 06/19/2022 Start: 06-04-2022 Influenza vaccination INFLUENZA (#1) [facility] Start: 04-30-2021 Urine microalbumin profile [facility] Start: 2013 ANNUAL PCP TEAM FAMILY INTERVENTION SPECIALIST DONTE DISEASE VISIT ANNUAL PCP TEAM CHRONIC DISEASE VISIT [facility] Start: 2013 Anxiety Screening Anxiety Screening [facility] Start: 2013 Depression Screening Depression Scre ening [facility] Start: 2013 HEPATITIS C SCREENING HEPATITIS C [facility] Start: 2013 Hepatitis C screening Hepatitis C [facility] Start: 2013 HIV SCREENING HIV SCREENING [facility] Start: 2013 HIV screening HIV Screening [facility] Start: 2013 SPIROMETRY SPIROMETRY [facility] Start: 2009 PEDS TO ADULT TRANSI TION ANNUAL ASSESSMENT PEDS TO ADULT TRANSITION ANNUAL ASSESSMENT [facility] Start: 2007 Adult depression screening assessment DEPRESSION SCREENING [facility] Start: 2007 PEDS TO ADULT TRANSI TION INITIAL DISCUSSION PEDS TO ADULT TRANSITION INITIAL DISCUSSION [facility] Start: 2006 HPV VACCINE (1 - Mal e 2-dose series) HPV VACCINE (1 - Male 2-dose series) [facility] Start: 2001 PNEUMOCOCCAL (1 - PCV) PNEUMOCOCCAL (1 - PCV) [facility] Start: 2001 Pneumococcal vaccination [facility] Start: 1995 COVID-19 VACCINE (#1) COVID-19 VACCI NE (#1) [facility] ECG COMPLETE [facility] Work Phone: Comment on above: Ordered: 05/11/2024 Patient Education [facility] Work Phone: Patient referral [facility] Work Phone: End: 07-26-2025 SPIROMETRY - BASELINE AND POST DILATOR SPIROMETRY - BASELINE AND POST DILATOR PFT Routine Intermittent asthma without complication, unspecified asthma severity 1 Occurrences starting 06/26/2024 until 07/26/2025 [facility] Work Phone: Comment on above: 1 Occurrences starti ng 06/26/2024 until 07/26/2025 Immunizations Immunization Date Immunization Notes Care Provider Niya jean-baptiste 09-14-2012 influenza virus vaccine, unspecified formulation Rach Lay APRN.CUE WORKER Work Phone: [facility] 09-14-2012 TD(adult) unspecifie d formulation Daryn Gtz MD Work Phone: [facility] 04-30-2011 Meningococcal, MCV4, unspecified conjugate formulation(groups A, C, Y and W-135) Rach Lay APRN.CUE WORKER Work Phone: [facility] Work Phone: 04-30-2011 tetanus toxoid, reduced diphtheria toxoid, and acellular pertussis vaccine, adsorbed Rach Lay APRN.CUE WORKER Work Phone: [facility] Work Phone: 01-27-2009 tetanus and diphther ia toxoids, adsorbed, preservative free, for adult use (5 Lf of tetanus toxoid and 2 Lf of diphtheria toxoid) Daryn Gtz MD Work Phone: [facility] 03-30-2001 diphtheria, tetanus toxoids and acellular pertussis vaccine Rach Alireza NUCLEAR FUELS RECLAMATION ENGINEER.[facility] Work Phone: [facility] Work Phone: 03-30-2001 poliovirus vaccine, inactivated Rach Alireza NUCLEAR FUELS RECLAMATION ENGINEER.[facility] Work Phone: [facility] Work Phone: 10-26-2000 diphtheria, tetanus toxoids and acellular pertussis vaccine Rach Alireza NUCLEAR FUELS RECLAMATION ENGINEER.[facility] Work Phone: [facility] Work Phone: 10-26-2000 measles, mumps and rubella virus vaccine Rach Alireza NUCLEAR FUELS RECLAMATION ENGINEER.[facility] Work Phone: [facility] Work Phone: 10-26-2000 poliovirus vaccine, inactivated Rach Alireza NUCLEAR FUELS RECLAMATION ENGINEER.[facility] Work Phone: [facility] Work Phone: 11-23-1996 haemophilus influenz ae type b vaccine, HbOC conjugate Rach Alireza NUCLEAR FUELS RECLAMATION ENGINEER.CUE WORKER Work Phone: [facility] Work Phone: 11-23-1996 measles, mumps and rubella virus vaccine Rach Alireza NUCLEAR FUELS RECLAMATION ENGINEER.CUE WORKER Work Phone: [facility] Work Phone: 06-19-1996 varicella virus vaccine Rach Alireza NUCLEAR FUELS RECLAMATION ENGINEER.CUE WORKER Work Phone: [facility] Work Phone: 1995 diphtheria, tetanus toxoids and pertussis vaccine Rach Alireza NUCLEAR FUELS RECLAMATION ENGINEER.CUE WORKER Work Phone: [facility] Work Phone: 1995 haemophilus influenz ae type b vaccine, HbOC conjugate Rach Alireza NUCLEAR FUELS RECLAMATION ENGINEER.CUE WORKER Work Phone: [facility] Work Phone: 1995 hepatitis B vaccine, pediatric or pediatric/adolescent dosage Rach Alireza NUCLEAR FUELS RECLAMATION ENGINEER.[facility] Work Phone: [facility] Work Phone: 1995 diphtheria, tetanus toxoids and pertussis vaccine Rach Alireza NUCLEAR FUELS RECLAMATION ENGINEER.CUE WORKER Work Phone: [facility] Work Phone: 1995 haemophilus influenz ae type b vaccine, HbOC conjugate Rach Alireza NUCLEAR FUELS RECLAMATION ENGINEER.[facility] Work Phone: [facility] Work Phone: 1995 trivalent poliovirus vaccine, live, oral Rach Alireza NUCLEAR FUELS RECLAMATION ENGINEER.[facility] Work Phone: [facility] Work Phone: 1995 diphtheria, tetanus toxoids and pertussis vaccine Rach Alireza NUCLEAR FUELS RECLAMATION ENGINEER.CUE WORKER Work Phone: [facility] Work Phone: 1995 haemophilus influenz ae type b vaccine, HbOC conjugate Rach Alireza NUCLEAR FUELS RECLAMATION ENGINEER.[facility] Work Phone: [facility] Work Phone: 1995 trivalent poliovirus vaccine, live, oral Rach Alireza NUCLEAR FUELS RECLAMATION ENGINEER.[facility] Work Phone: [facility] Work Phone: 1995 hepatitis B vaccine, pediatric or pediatric/adolescent dosage Rach Alireza NUCLEAR FUELS RECLAMATION ENGINEER.CUE WORKER Work Phone: [facility] Work Phone: 1995 hepatitis B vaccine, pediatric or pediatric/adolescent dosage Rach Alireza NUCLEAR FUELS RECLAMATION ENGINEER.[facility] Work Phone: [facility] Work Phone: Payers Date Payer Category Payer Self-pay [id number] 2023 Unknown [employer] PPO [id number] 2023-Present [phone] [address] [place] [address] PPO [id number] 2022 Medicaid [id number] 2019 Medicaid [id number] 2016 Unknown [id number] Unknown [id number] Unknown [id number] Unknown [id number] Unknown [id number] Unknown [id number] Unknown [id number] Unknown [id number] Unknown [id number] Social History Date Type Detail Facility Start: 07-12-2015 End: 04-18-2025 Tobacco smoking status FLIS Smokes tobacco daily [facility] Start: 06-26-2008 History of tobacco use Cigarette Smo ker [facility] Start: 07-12-2015 End: 05-11-2024 Cigarettes smoked current (pack per day) - Reported 0.5 [facility] Start: 07-12-2015 End: 06-26-2024 Tobacco use and exposure Smokeless tobacco non-user [facility] Start: 03-18-2021 End: 06-05-2022 Alcohol intake Not Asked [facility] Start: 1995 Sex Assigned At Not on file [facility] Start: 10-15-2022 End: 07-23-2024 Alcohol intake Lifetime non-drinker (finding) [facility] Start: 09-17-2022 Tobacco Comment mother smokes [facility] Start: 07-02-2023 End: 05-11-2024 Tobacco use panel [facility] National Score (1-10 0), lower number is lower risk Not on file [facility] Start: 08-14-2023 End: 01-10-2024 Tobacco smoking status NHIS Unknown if ever smoked [facility] Start: 10-19-2020 None [facility] Start: 10-19-2020 With Family [facility] Start: 02-22-2021 Cigarettes [facility] Start: 1995 Sex Assigned At Male W [facility] Start: 02-16-2021 End: 03-18-2021 Exposure to SARS-CoV-2 (event) Not sure [facility] Start: 01-11-2025 Sex Male (finding) [facility] Start: 06-16-2025 Tobacco smoking stat us NHIS Current Heavy tobacco smoker [facility] Mental Status Date Assessment Result Facility 06-16-2025 Cognitive function Voice/Name [facility] Work Phone: 04-18-2025 Cognitive function Voice/Name [facility] Work Phone: 09-06-2023 Cognitive function Level Of Cons ciousness Awake;Alert;Appropriate;Follow s Commands [facility] Work Phone: 05-30-2023 Cognitive function Voice/Name [facility] Work Phone: Clinical Notes 03-18-2021 to 06-21-2025 Note Date & Type Note Facility 06-21-2025 Note HNO ID: [id number] Author: LIVIER FRENCH APRN.CUE WORKER Service: ? Author Type: Nurse Practitioner Type: Progress Notes Filed: 06/21/2025 11:18 Note Text: Chief Complaint Patient presents with: Physical HPI Reynaldo Addison is a 30 year old male who presents here today for Above Complaints. Patient presents for annual physical. Reports hx of panic attacks and HR is extremely high during these periods. Reports father had heart attack in 50's and this causes a lot of anxiety when his HR is high. Patient reports he currently sees a psychiatrist at the counseling center. Past medical history, appointments, medications, allergies reviewed. Previous Medical History PAST MEDICAL HISTORY Diagnosis Date Allergic rhinitis, unspecified 07/22/[address] Gomez Bipolar disorder ([facility]) Black hairy tongue Depression Edentulous Headache NEGATIVE MEDICAL HISTORY normal color vision PMH - PAST MEDICAL HISTORY OF spinal meningitis at 12 months Smoker 07/22/2018 Tobacco use disorder Vitamin B12 deficiency Vitamin D deficiency Previous Surgical History PAST SURGICAL HISTORY Procedure Laterality Date CIRCUMCISION,CLAMP, Family History FAMILY HISTORY Problem Relation Age of Onset Stroke Mother Diabetes Mother Asthma Mother Hyperlipidemia Mother Hypertension Mother Heart Attack Father 56 No Known Problems Sister No Known Problems Brother No Known Problems Brother Asthma Maternal Grandmother Diabetes Maternal Grandmother Diabetes Maternal Uncle No Known Problems Daughter Patient Allergies ALLERGIES Allergen Reactions Cats Shortness of Breath Patient reported allergy on 05/11/24 Penicillins Hives Eggs [Egg] Rash Current Medications Current Outpatient Medications on File Prior to Visit Medication Sig amitriptyline (ELAVIL) 10 mg tablet Take 1 tablet every day by oral route at bedtime. buPROPion (WELLBUTRIN) 75 mg tablet ergocalciferol 50,000 unit capsule (VITAMIN D2, DRISDOL) Take 1 capsule by mouth one time a week. (Patient not taking: Reported on 07/23/2024) propranolol (INDERAL) 10 mg tablet venlafaxine ER [...] for wheezing/shortness of breath. Use over 5-15minutes. No current facility-administered medications on file prior to visit. Social History SOCIAL HISTORY[1] Review of Symptoms REVIEW OF SYSTEMS SEE HPI EXAM: BP 123/80 Pulse 108 Wt 48 kg (105 lb 13.1 oz) BMI 17.50 kg/m? General Appearance: Well appearing, alert, in no acute distress, well-hydrated, well nourished. Skin: Skin color, texture, turgor normal, no suspicious rashes or lesions. Lungs: Lungs clear to auscultation. No wheezing, rhonchi, rales.. Heart: RRR without murmur, gallop, or rubs. No ectopy. Abdomen: Normal abdominal exam, Abdomen soft, non-tender. Bowel sounds normal. No masses, organomegaly. Musculoskeletal: No joint swelling, deformity, or tenderness. Peripheral Pulses: Normal. Neurologic: Gait normal. Reflexes normal and symmetric. Sensation grossly intact. Health Maintenance List HPV Vaccine(1 - 3-dose SCDM series) Never done Influenza Vaccine(1) due on 06/04/2025 Depression Screening due on 06/26/2025 Anxiety Screening due on 06/26/2025 DTaP,Tdap,Td Vaccine(7 - Td or Tdap) due on 06/26/2025 Hepatitis C Screening due on 06/26/2025 HIV Screening due on 06/26/2025 Pneumococcal Vaccine(1 of 2 - PCV) due on 06/26/2025 Annual PCP Team Chronic Disease Visit due on 06/26/2025 Hepatitis B Vaccine Completed ASSESSMENT/PLAN: 1. Wellness examination - ICD9: V70.0, ICD10: Z00.00 (primary diagnosis) - Counseled on healthy diet and regular exercise - Follow up for annual exam in one year 2. TERI (generalized anxiety disorder) - ICD9: 300.02, ICD10: F41.1 -Continue current medication -Follow up with Psychiatry for increased anxiety 3. Bipolar affective disorder, current episode mixed, current episode severity unspecified (HCC) - ICD9: 296.60, ICD10: F31.60 -Continue current medication -Follow up with Psychiatry for increased anxiety 4. Tachycardia - ICD9: 785.0, ICD10: R00.0 -Likely anxiety induced 5. Vitamin D deficiency - ICD9: 268.9, ICD10: E55.9 - VITAMIN D 25 HYDROXY 6. Medication management - ICD9: V58.69, ICD10: Z79.899 - COMPLETE BLOOD COUNT AND DIFFERENTIAL - COMPREHENSIVE METABOLIC PANEL - VITAMIN B12 - THYROID STIMULATING HORMONE 7. Hyperlipidemia, mixed - ICD9: 272.2, ICD10: E78.2 - Control undetermined, due for labs - Coun (more content not included)... [facility] 06-16-2025 Discharge summary [facility] 06-16-2025 Discharge summary Note Date/Time June 16, 2025 10:22pm [facility] Medical Records Department [address] [place] [address] Emergency Department Summary 06/16/25 MR#: [id number] Acct: [id number] Name: REYNALDO ADDISON III Rep #:[id number] : 1995 29 From: Kendrick Page MD PCP: Dr. Moustapha Gtz MD Status :REG ER Location: ED HPI HPI - Psych History of Present Illness Chief Complaint: Anxiety Detail of Chief Complaint: Chest pain due to anxiety, work was super hectic . Informant: patient Onset/Context/Timing Onset: Today Context: Sudden Onset Timing: Intermittent and Waxes and wanes Current Severity: Mild Maximum Severity: Severe Worsened by: Situational factors (Patient works at [employer] and it was super hectic .) Relieved by: Nothing. Patient declined to take Xanax that he was prescribed Associated Symptoms Associated Symptoms - Psych: Positive for Depressed and - (Palpitations and feeling stressed); Negative for Change in Eating, Change in sleeping, Decreased Interest, Guilt, Decreased Concentration, Hopelessness, Suicidal Thoughts, Easily distracted, Grandiosity, Flight of Ideas, Increased activity, Pressured Speech, Agitated, Paranoia, Visual Hallucinations or Auditory Hallucinations Specific plan (suicidal thought): Not applicable Narrative Narrative: patient is a 29-year-old male. He has history of anxiety disorder, asthma, tobacco use. He presents because of palpitations that started this morning's been intermittent. It is worse when he is under more stress at work. He denieddiaphoresis, shortness of breath, nausea or vomiting. He denies headache, visual, ocular auditory symptoms. He denies abdominal pain, vomiting or diarrhea. He denies paresthesia, anesthesia or motor weakness. Patient denies chest tightness, pressure, heaviness or sharp dull sensation. The discomfort is feeling his heart beat. Prior similar symptoms: Yes Recent Illness/Hospitalization: No [facility] Medical History Anxiety Tobacco abuse Asthma Home Medications ?Medication ?Instructions ?Recorded ?Last Taken ?Type buspirone 7.5 mg tablet 7.5 mg PO BID 04/18/25 Unkno wn History alprazolam 0.25 mg tablet 0.25 mg PO DAILY PRN anxiety 06/16/25 Unknown History mirtazapine 15 mg tablet 7.5 mg PO DAILY 06/16/25 Unk nown History Allergy/AdvReac Type Severity Reaction Status Date / Time cat dander (cats) Allergy Intermediate Inflammation Verified 06/16/25 21:36 of lung egg Allergy Rash Verified 06/16/25 21:36 Penicillins Allergy Rash Verified 06/16/25 21:36 Family History Father Heart disease Social History household members: significant other housing: apartment Smoking Status: Heavy Smoker (>10/day) ROS ROS ED Constitutional Constitutional ED: Denies chills, fever(s), subjective or sweats Eyes Eyes: Denies blurry vision or change in vision ENT ENT ED: Denies rhinorrhea or sore throat Cardiovascular Cardiovascular: Reports palpitations; Denies chest pain or racing heartbeat Respiratory/Chest Respiratory/Chest: Denies cough, dyspnea or dyspnea on exertion Gastrointestinal Gastrointestinal: Denies abdominal pain, nausea or vomiting Neurologic Neurologic: Denies paresthesias or weakness Psychiatric Psychiatric: Reports anxiety; Denies suicidal ideation or suicidal thoughts EXAM Physical Exam Const Vital Signs: 06/16/25 21:34 06/16/25 21:46 Temperature 98.0 F Temperature Source Temporal Pulse Rate 84 Respiratory Rate 16 Respiratory Effort Normal Blood Pressure 113/70 Blood Pressure Mean 84 Pulse Ox 100 Oxygen Delivery Method Room Air Positive well nourished and well developed Constitutional Narrative: Affect is flat. Vital signs are normal. General Appearance ED: well developed HEENT Reports moist mucous membranes normocephalic and atraumatic Eyes PERRL and EOMs intact bilaterally General Eye ED: Negative for pale conjunctiva or scleral icterus Neck no lymphadenopathy, supple and no JVD Resp normal respiratory effort and clear to auscultation bilaterally Cardio S1 normal heart sound, S2 normal heart sound and no murmurs Rate: regular rate Rhythm: regular rhythm GI non-tender, non-distended and no masses Auscultation: normoactive bowel sounds Palpation: soft Extremity normal to inspection General Extremety ED: Negative for edema or tenderness General Extremity: Negative for edema Neuro oriented x3, CN's II-XII intact bilaterally and no sensory deficits noted Sensorium / Orientation: alert Motor Exam: strength 5/5 throughout Psych mental status grossly normal, thought process normal, cooperative, speech normal, denies hallucinations and denies homicidal ideation Appearance: grossly normal, appropriate and well kempt Attitude: calm Activity / Motor Behavior: appropriate eye contact Speech: normal speech and soft Mood & Affect: depressed and flat affect Thought Process: normal thought process Thought Content: normal thought content Attention / Concentration: attention grossly intact and concentration grossly intact Memory / Cognition: memory grossly intact and cognition grossly intact Insight: fair Judgement: judgement good Skin Skin Narrative: No skin lesions noted. MDM MDM MDM Narrative Medical decision making narrative: With history anxiety stress at work and symptoms occurred when stress increased suspect this is anxiety reaction. Patient was placed on the monitor. He has what appears to be benign a little early repolarization. Sinus rhythm. When I was informed and what the monitor showed his heart rate increased from 90-100. Patient was offered antianginal lytic. He declined. As documented in the HPI narrative patient did not take his Xanax that he was prescribed for this situation. Rhythm Strip Rhythm Strip: Sinus Rhythm Rate: 90 Ectopy: None EKG Initial EKG: Attestation: I personally reviewed and interpreted this EKG as follows: Interpretation: Sinus Rhythm (Rate is 81. The EKG is normal. Parable is 140 ms. QRS duration 78 ms. QT duration 344 ms. [place] is normal.) Treatment and Re-Evaluation Narrative: Patient was reassessed at 2217. Heart rate is slowed. He feels better. He asked if he could have a note to give his employer that he was here tonight. Discharge Plan Triage Chief Complaint: Anxiety ED Provider: Kendrick Page Dx/Rx/DC Orders Clinical Impression: Anxiety reaction, Tobacco abuse Instructions: ED Anxiety Reaction Prescriptions: No Action buspirone 7.5 mg tablet 7.5 mg PO BID alprazolam 0.25 mg tablet 0.25 mg PO DAILY PRN (Reason: anxiety) mirtazapine 15 mg tablet 7.5 mg PO DAILY Stand Alone Forms: ED Work / School Excuse Primary Care Provider: Moustapha Gtz Referrals: Moustapha Gtz MD [Primary Care Provider] - As Needed Activity Restrictions/Additional Instructions: Recommend contacting your psychiatrist to discuss other options since you are declining to anxiolytic medication and did not take medicine you were prescribedby your psychiatrist Print Language: Malagasy Disposition Disposition: Home, Self Care What to do if you have Problems For any increased pain, shortness of breath, bleeding, nausea or vomiting, chestpain, or any unexpected problems, contact your Primary Care Provider. Call [facility] ([phone]) or report to the closest Emergency Room. Call 911 if necessary. 06/16/252221 <Electronically signed by Kendrick Page MD> Cosigner Signature (if applicable): CC: Dr. Moustapha Gtz MD ~ Signed [facility] Work Phone: [phone] [phone] Discharge summary [facility] Medical Records Department [address] [place] [address] Emergency Department Summary 04/18/25 MR#: [id number] Acct: [id number] Name: REYNALDO ADDISON III Rep #:[id number] : 1995 29 From: Kendrick Page MD [...] medical history. He is on BuSpar. He doeshave history of anxiety and depression. Patient presently works at [employer]. He is scheduled to start a new job at [employer]. He is waiting for information regarding training. [...] similar symptoms: Yes Recent Illness/Hospitalization: No PFSH PFSH Medical History Anxiety Tobacco [...] concern forhyperthyroidism. Patient placed on a monitor. Hewas observed for 30 minutes. He had no [...] Care Provider] - As Needed Print Language: Malagasy Disposition Disposition: Home, Self Care What to do if you have Problems For any increased pain, shortness of breath, bleeding, nausea or vomiting, chestpain, or any unexpected problems, contact your Primary Care Provider. Call [facility] ([phone]) or report tothe closest Emergency Room. Call 911 if necessary. 04/18/25 1103 Cosigner Signature (if applicable): CC: Dr. Moustapha Gtz MD ~ Signed [facility]06-13-2025 [facility] [address] [place] [address] Emergency Department Summary 03/16/25 MR#: [id number] Acct: [id number] Name: REYNALDO ADDISON III Rep #:[id number] : 1995 29 From: Chung Vallejo MD PCP: Dr. Moustapha Gtz MD Status :REG ER Location: ED HPI History of Present Illness Chief Complaint: Burn Informant: patient Narrative Narrative: Patient states he works at [employer] and he sustained a small burn to his rightmiddle finger from gale grease that splashed onto his finger. He states this occurred about a week ago. He states initially there was some yellow-green layer on the top, and today he accidentally scraped it off and wasconcerned andwanted to make sure it is not getting infected. He does not have any pain or significant discharge. [facility] Medical History Anxiety Tobacco abuse Asthma Home [...] middle finger no tenderness, no lymphangitis, no signof infection. Rashes: no rashes MDM MDM MDM [...] of Physicians] - As Needed Print Language: Malagasy Disposition Disposition: Home, Self Care What to do if you have Problems For any increased pain, shortness of breath, bleeding, nausea or vomiting, chestpain, or any unexpected problems, contact your Primary Care Provider. Call [facility] ([phone]) or report tothe closest Emergency Room. Call 911 if necessary. 03/16/252 Cosigner Signature (if applicable): CC: Dr. Moustapha Gtz MD ~ Signed [facility]06-13-2025 Discharge summary Author Chung Vallejo [facility] Note Date/Time March 16, 2025 10:4 7pm [facility] Medical Records Department [address] [place] [address] Emergency Department Summary 03/16/25 MR#: [id number] Acct: [id number] Name: REYNALDO ADDISON III Rep #:[id number] : 1995 29 From: Chung Vallejo MD PCP: Dr. Moustapha Gtz MD Status :REG ER Location: ED HPI History of Present Illness Chief Complaint: Burn Informant: patient Narrative Narrative: Patient states he works at [employer] and he sustained a small burn to [...] not have any pain or significant discharge. [facility] Medical History Anxiety Tobacco abuse Asthma Home [...] of Physicians] - As Needed Print Language: Malagasy Disposition Disposition: Home, Self Care What to do if you have Problems For any increased pain, shortness of breath, bleeding, nausea or vomiting, chestpain, or any unexpected problems, contact your Primary Care Provider. Call [facility] ([phone]) or report to the closest Emergency Room. Call 911 if necessary. 03/16/252246 <Electronically signed by Chung Vallejo MD> Cosigner Signature (if applicable): CC: Dr. Moustapha Gtz MD ~ Signed [facility] Work Phone: 1(511) 766-990204-10-2025 Discharge summary [facility] Medical Records Department [address] [place] [address] Emergency Department Summary 01/11/25 MR#: [id number] Acct: [id number] Name: REYNALDO ADDISON III Rep #:[id number] : 1995 29 From: Charla Ruffin PCP: [...] lot (works 10 to 12-hour shifts at [employer] andit has been stressful). States he has [...] shortness of breath, nausea, vomiting or diarrhea. [facility] Medical History Anxiety Tobacco abuse Asthma Home [...] your symptoms or further concerns. Print Language: Malagasy Disposition Disposition: Home, Self Care What to do if you have Problems For any increased pain, shortness of breath, bleeding, nausea or vomiting, chestpain, or any unexpected problems, contact your Primary Care Provider. Call [facility] ([phone]) or report tothe closest Emergency Room. Call 911 if necessary. 01/11/251912 Cosigner Signature (if applicable): CC: Dr. Moustapha Gtz MD ~ Signed [facility]04-10-2025 Discharge summary Author Charla Sepulveda [facility] Note Date/Time January 11, 2025 7:1 3pm [facility] Medical Records Department [address] [place] [address] Emergency Department Summary 01/11/25 MR#: [id number] Acct: [id number] Name: ERYNALDO ADDISON III Rep #:[id number] : 1995 29 From: Charal Ruffin PCP: Dr. Moustapha Gtz MD Status [...] lot (works 10 to 12-hour shifts at [employer] has been stressful). States he has appointment [...] shortness of breath, nausea, vomiting or diarrhea. PFSH PFS Medical History Anxiety Tobacco abuse [...] / School Excuse Primary Care Provider: Moustapha Gzt Referrals: Moustapha Gtz MD [Primary Care Provider] - Activity Restrictions/Additional Instructions: Please continue to follow-up outpatient with behavioral health and your psychiatrist. Return if you have a progression worsening your symptoms or further concerns. Print Language: Malagasy Disposition Disposition: Home, Self Care What to do if you have Problems For any increased pain, shortness of breath, bleeding, nausea or vomiting, chestpain, or any unexpected problems, contact your Primary Care Provider. Call [facility] ([phone]) or report to the closest Emergency Room. Call 911 if necessary. 01/11/251912 <Electronically signed by Charla Sepulveda DO> Cosigner Signature (if applicable): CC: Dr. Moustapha Gtz MD ~ Signed [facility] Work Phone: 1(250) 126-928410-20-2024 NoteHNO ID: [id number] Author: GENEVIEVE WADE APRN.CUE WORKER Service: ? Author Type: Nurse Practitioner Type: [...] Anxiety Asthma Previously Dr. Gomez Bipolar disorder ([facility]) Black hairy tongue Depression Edentulous Headache NEGATIVE [...] DOXYCYCLINE MONOHYDRATE 100 MG TABLET Genevieve Wade APRN.[facility] History of Present illness Narrative* Genevieve Wade APRN.CUE WORKER - 07/23/2024 10:06 AM EDT Subjective HPI [...] DOXYCYCLINE MONOHYDRATE 100 MG TABLET Genevieve Wade APRN.CUE WORKER documented in this [facility]Children[facility]24 Telephone encounter Note * Telephone Encounter - Daryn Gtz MD - 07/04/2024 10:18 AM EDT Rx sent. [facility] Miscellaneous Notes* Telephone Encounter - Daryn Gtz MD - 07/04/2024 10:18 AM EDT Rx sent. * Telephone Encounter - Amira Ayala LPN - 07/04/2024 9:58 AM EDT Patient returned call and went over results, notes from Dr Gtz with understanding. Aware Vitamin D rx sent to pharmacy. Patient wants to take the supplement, asking for rx to be sent to [facility] pharmacy. Pending rx needs completed. * Telephone [...] receive the providers message. Oliva Nunez, RN * Telephone Encounter - Daryn Gtz [...] other labs are normal. documented in this encounterChildren[facility]10-01-2024 Telephone encounter Note * Telephone Encounter - Amira Ayala LPN - 07/04/2024 9:58 AM EDT Patient returned call and went over results, notes from Dr Gtz with understanding. Aware Vitamin D rx sent to pharmacy. Patient wants to take the supplement, asking for rx to be sent to [facility] pharmacy. Pending rx needs completed. [facility]09-26-20[facility] Telephone encounter Note* Telephone Encounter - Mariely tSein LPN - 06/29/2024 7:56 AM EDT Letter sent to patient requesting call back and to update contact information. Mariely Stein LPN [facility]09-24-2024 Telephone encounter Note* Telephone Encounter - Oliva [...] receive the providers message. Oliva Nunez RN [facility]09-24-2024 Telephone encounter Note* Telephone Encounter - Daryn [...] would prefer. His other labs are normal. [facility]09-23-2024 NoteHNO ID: [id number] Author: DARYN GTZ MD Service: ? Author Type: Physician Type: Progress Notes Filed: 06/26/2024 14:52 Note Text: Chief Complaint Patient presents with: Establish Care HPI Reynaldo Addison is a 29 year old male who presents here today for Above Complaints. Accompanied today by mother. Previous PCP was his utilization review coordinator Dr. Tai. We discussed possible tension headache at last OV on 05/11 and patient returned to [facility] ER on 05/13 for same complaint [...] No current facility-administered medicat (more content not included)...[facility]09-23-2024 History of Present illness Narrative* Daryn Gtz MD - 06/26/2024 12:19 PM EDT Chief Complaint Patient presents with: Establish Care HPI Reynaldo Addison is a 29 year old male who presents here today for Above Complaints. Accompanied today by mother. Previous PCP was his utilization review coordinator Dr. Tai. We discussed possible tension headache at last OV on 05/11 and patient returned to [facility] ER on 05/13 forsame complaint with [...] tobacco. Daryn Gtz MD documented in this encounterChildren'S [facility]08-08-2024 History of Present illness Narrative* Daryn Gtz MD - 05/11/2024 11:04 AM EDT Chief Complaint Patient presents with: ER F/U: Post concussion- looking for 2nd opinion HPI Reynaldo Addison is a 28 year old male who presents here today for new limited ER follow up. Accompanied today by his mother Lakeshia. Patient evaluated at [facility] ED on 05/06, 05/08, 05/09, and [...] parietal headache and now noted head trauma. [facility] fijian [facility] head rule did not indicate imaging. [...] does have an appointment with neurology in [place] in 5 days. Past medical history, appointments, [...] which included preparing to see the patient, [id number] patient care, completing clinical documentation, obtaining and/or reviewing separately obtained history, performing a medically appropriate examination, counseling and educating the pat ient/family/caregiver, ordering medications, tests, or procedures, independently interpreting results (not separately reported), and communicating results to the patient/family/caregiver. Daryn Gtz MD documented in this encounterChildren'S [facility] Rehabilitation04-13-2024 History of Present illness Narrative* Kevin Stewart, SANTINO.CUE WORKER - 01/15/2024 12:04 PM EDT Subjective HPI [...] of care. This note was generated using [employer] software. It may contain errors in wording, punctuation, or spelling. Kevin Stewart APRN.CUE WORKER documented in this encounterChildren'S Hospital [facility] Rehabilitation12-04-2023 Discharge summary Author Deng Palmer [facility] September 06, 2023 7:20pm Note Date/Time September 06, 2023 4 :18pm [facility] Medical Records Department [address] [place] [address] Emergency Department Summary 09/06/23 MR#: [id number] Acct: [id number] Name: REYNALDO ADDISON III Rep #:[id number] : 1995 28 From: Deng Palmer MD PCP: Care Physician,No Primary Status :[facility] ER Location: ED HPI History of Present [...] that he is able to eat fine. [facility] Medical History (Updated 09/06/23 @ 18:09 by [...] 81.9 H Lymph % (Auto) 5.4 L [place] % (Auto) 11.9 H Eos % (Auto) [...] changes. No sign of infarct or ischemia. TX interval, QRS duration and QTc are normal [...] Referrals: Melyssa Garner MD [Med Staff - Plater Helper] - 3-5 Days if not improving Care Physician,No Primary [Primary Care Provider] - Disposition Disposition: Home, Self Care What to do if you have Problems For any increased pain, shortness of breath, bleeding, nausea or vomiting, chestpain, or any unexpected problems, contact your Primary Care Provider. Call [facility] ([phone]) or report to the closest Emergency Room. Call 911 if necessary. 09/06/231919 <Electronically signed by Deng Palmer MD> Cosigner Signature (if applicable): CC: No Primary Care Physician ~ Signed [facility] Work Phone: 1(517) 756-684411-11-2023 Discharge summary Author Deng Palmer [facility] August 14, 2023 6:56pm Note Date/Time August 14, 2023 6:55pm [facility] Medical Records Department [address] [place] [address] Emergency Department Summary 08/14/23 MR#: [id number] Acct: [id number] Name: REYNALDO ADDISON III Rep #:[id number] : 1995 28 From: Deng Palmer MD [...] just does not want tolose the job. [facility] Medical History (Updated 08/14/23 @ 18:55 by [...] your Primary Care Provider. Call [facility] ([phone]) or report to the closest Emergency Room. Call 911 if necessary. 08/14/231855 <Electronically signed by Deng Palmer MD> Cosigner Signature (if applicable): CC: Dr. Kevin Carcamo MD ~ Signed [facility] Work Phone: 1(939) 855-420009-29-2023 Instructions* Patient Instructions* Kevin Stewart APRN.CUE WORKER - 07/02/2023 5:58 PM EDT How to [...] or concerning to you. documented in this encounterChildren'S Hospital For Rehabilitation09-29-2023 History of Present illness Narrative* Kevin Stewart APRN.CNP - 07/02/2023 5:45 PM EDT Subjective HPI Nontoxic-appearing male presents urgent care chief complaint flulike symptoms. Duration of symptoms3 days. Associated symptoms with today's chief complaint are on and off headache, muscle aches, fatigue, nonproductive cough, and fever. Patient stated symptoms started abruptly. Patient states they have used lieh-iwx-ttzewdz medication with some success. Patient states they [...] on movement. Nose: Congestion present. Mouth/Throat: Lips: Dupree. Mouth: Mucous membranes are moist. Dentition: Abnormal [...] of care. This note was generated using [employer] software. It may contain errors in wording, punctuation, or spelling. Kevin Stewart APRN.HANDY documented in this encounterChildren'S [facility]03-09-2023 History of Present illness Narrative* Kevin Stewart [...] care. Kevin Stewart APRN.HANDY documented in this encounterChildren'S Hospital [facility] Rehabilitation02-09-2023 Instructions* Patient Instructions* Alixsam Perez - 11/12/2022 9:43 AM EST OTITIS [...] resolved Alix Perez APRN-student documented in this encounterChildren'S Hospital For Rehabilitation02-09-2023 History of Present illness Narrative* Alix Perez - 11/12/2022 9:17 AM EST Subjective HPI ROS Objective Physical Exam * Melba Jones APRN.CUE WORKER - 11/12/2022 9:16 AM EST Images from the original note were not included. This note was created using navigayariter. Subjective Reynaldo Addison is a 27 year [...] injected, scarred, perforated or erythematous. Mouth/Throat: Lips: Dupree. Mouth: Mucous membranes are moist. Dentition: Abnormal [...] until resolved Alix Perez APRN-student TEACHING PROVIDER (Physician/PA/NUCLEAR FUELS RECLAMATION ENGINEER) NOTE OF PERSONAL INVOLVEMENT IN CARE: I have personally seen and examined the patient and performed the medical decision-making components. I have reviewed the Advanced Practice Registered Nurse (NUCLEAR FUELS RECLAMATION ENGINEER) Student's documentation and verified the findings in the note as written. Any additions or changes are noted in bold/italics. Signature: Melba Jones Date: 11/12/2022 Time: 9:51 AM documented in this encounterChildren'S Hospital For Rehabilitation01-12-2023 History of Present illness Narrative* Skye Maradiaga PA-C - 10/15/2022 6:12 PM EST This note was created using [employer]. Subjective Reynaldo Addison is a 27 year [...] Denies cough or congestion. 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 documented in this encounterChildren'S Hospital For Rehabilitation09-02-2022 History of Present illness Narrative* Rach Lay APRN.CNP - 06/05/2022 4:17 PM EDT Subjective The history is provided by the patient. No foreign language teacher was used. DION Addison is a 26 [...] have confirmed and edited as necessary, the [facility] Review of Systems Constitutional: Negative [...] evaluation. Rach Lay APRN.CNP documented in this encounterChildren'S Hospital [facility] Rehabilitation06-15-2021 History of Present illness Narrative* Chula Rivers [...] 18, 2021 5:44 PM documented in this encounterChildren'S Hospital For RehabilitationDischarge summary Author Kendrick Page [facility] Note Date/Time April 18, 2025 11:0 3am [facility] Medical Records Department [address] [place] [address] Emergency Department Summary 04/18/25 MR#: [id number] Acct: [id number] Name: REYNALDO ADDISON III Rep #:[id number] : 1995 29 From: Kendrick Page MD [...] anxiety and depression. Patient presently works at [employer]. He is scheduled to start a new job at [employer]. He is waiting for information regarding training. [...] similar symptoms: Yes Recent Illness/Hospitalization: No PFSH PFSH Medical History Anxiety Tobacco [...] Care Provider] - As Needed Print Language: Malagasy Disposition Disposition: Home, Self Care What to do if you have Problems For any increased pain, shortness of breath, bleeding, nausea or vomiting, chestpain, or any unexpected problems, contact your Primary Care Provider. Call [facility] ([phone]) or report to the closest Emergency Room. Call 911 if necessary. 04/18/25 1103 <Electronically signed by Kendrick Page MD> Cosigner Signature (if applicable): CC: Dr. Moustapha Gtz MD ~ Signed [facility] Work Phone: Evaluation note* Diagnosis Acute cough- Primary Nasal congestion Other diseases of nasal cavity and sinuses Wheezing Suspected COVID-19 virus infection documented in this encounter [facility] note* Diagnosis Diarrhea, unspecified type- Primary documented in this encounter [facility] note* Diagnosis Acute otitis externa of left ear, unspecified type- Primary documented in this encounter [facility] note* Diagnosis Loose stools- Primary Abnormal feces documented in this encounter [facility] note* Diagnosis Pharyngitis, unspecified etiology- Primary Viral illness Unspecified viral infection, in conditions classified elsewhere and of unspecified site documented in this encounter [facility] noteNo assessment information availableWThe Christ Hospital Work Phone: Evaluation note* Diagnosis Moderate persistent asthma with (acute) exacerbation- Primary documented in this encounter [facility] note* Diagnosis Headache, unspecified headache type- Primary Injury of head, subsequent encounter Tachycardia Tachycardia, unspecified Right atrial enlargement Cardiomegaly Tobacco use Tobacco use disorder 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 documented in this encounter [facility] note* Diagnosis Encounter for medical examination to establish care- Primary TERI (generalized anxiety disorder) Generalized anxiety disorder Bipolar affective disorder, current episode mixed, current episode severity unspecified (HCC) Intermittent asthma without complication, unspecified asthma severity Tobacco use Tobacco use disorder documented in this encounter [facility] note* Diagnosis Vitamin D deficiency- Primary Unspecified vitamin D deficiency documented in this encounter [facility] note* Diagnosis Lower resp. tract infection- Primary Other diseases of respiratory system, not elsewhere classified [facility] instructions Additional Instructions Please continue to follow-up outpatient with behavioral health and your psychiatrist. Return if you have a progression worsening your symptoms or further concerns.[facility] Work Phone: Hospital Discharge instructionsAdditional Instructions Recommend contacting your psychiatrist to discuss other options since you are declining to anxiolytic medication and did not take medicine you were prescribed by your psychiatristWThe Christ Hospital Work Phone: Reason for referral (narrative)* Outpatient Procedure (Routine) - New Request Specialty Diagnoses / Procedures Referred By [facility] Diagnoses Tachycardia Procedures ECG COMPLETE ECG ROUTINE ECG W/LEAST 12 LDS W/I&R Daryn Gtz MD [address] [place] [address] [facility] [address] [place] [address] Referral ID Status Reason Start Date Expiration Date Visits Requested Visits Authorized [id number] New Request Auto-Generat ed Referral 05/11/2024 05/11/2025 1 1 [facility] for referral (narrative)* Outpatient Procedure (Routine) - Authorized Specialty Diagnoses / Procedures [facility] Diagnoses Intermittent asthma without complication, unspecified asthma severity Procedures SPIROMETRY - BASELINE AND POST DILATOR BRNCDILAT RSPSE SPMTRY PRE&POST-BRNCDILAT ADMN Daryn Gtz MD [address] [place] [address] Respiratory [address] [place] [address] Referral ID Status Reason Start Date Expiration Date Visits Requested Visits Authorized [id number] Authorized Auto-Generat ed Referral 06/26/2024 07/26/2025 1 1 [facility] for referral (narrative)No reason for referral information availableWThe Christ Hospital Work Phone: Health Concerns Infection Onset Date [...] pm palpitations April 18, 2025 10:0 0am Chief Complaint Admit Date WOUND March 16, 2025 9:52 pm palpitations April 18, 2025 10:0 0am ANXIETY June 16, 2025 9:33pm Advance Directives No Advanced Directives Records Found Advance Directive Response Recorded Date/ Time Advance Directives No September 10, 2016 6:15am Living Will No August 14 023 6:22pm Power of Fountain Helper No August 14, 2023 6:22pm Advance Directive Response Recorded Date/ Time Advance Directives No September 10, 2016 6:15am Living Will No September 06 4:11pm Power of Fountain Helper No September 06, 2023 4:11pm Advance Directive Response Recorded Date/ Time Advance Directives No September 10, 2016 7:15am Living Will No January 10, 2024 7:57pm Power of Fountain Helper No January 09 7:57pm Advance Directive Response Recorded Date/ Time Living Will No January 11, 2025 6:50pm Do you have a Healthcare Power of Fountain Helper? No January 11, 2025 6:50pm Living Will No November 05 6:05pm Do you have a Healthcare Power of Fountain Helper? No November 05, 2024 6:05pm Advance Directives No September 10, 2016 7:15am Advance Directive Response Recorded Date/ Time Living Will No January 11, 2025 6:50pm Do you have a Healthcare Power of Fountain Helper? No January 11, 2025 6:50pm Do you have a Healthcare Power of Fountain Helper? No March 16, 2025 10:49pm Advance Directives No September 10, 2016 7:15am Advance Directive Response Recorded Date/ Time Living Will No January 11, 2025 6:50pm Do you have a Healthcare Power of Fountain Helper? No January 11, 2025 6:50pm Do you have a Healthcare Power of Fountain Helper? No March 16, 2025 10:49pm Do you have a Healthcare Power of Fountain Helper? No April 18, 2025 10:07am Advance Directives No September 10, 2016 7:15am Advance Directive Response Recorded Date/ Time Do you have a Healthcare Power of Fountain Helper? No March 16, 2025 10:49pm Do you have a Healthcare Power of Fountain Helper? No April 18, 2025 10:07am Do you have a Healthcare Power of Fountain Helper? No June 16, 2025 9:46pm Advance Directives No September 10, 2016 7:15am [...] or prosecute any alcohol or drug abuse patient.[facility] For RehabilitationIn the event this information is protected by the Federal Confidentiality of Alcohol and Drug Abuse Patient Records regulations: The Federal rules restrict any use of the information to criminally investigate or prosecute any alcohol or drug abuse patient.[facility] For RehabilitationIn the event this information is protected by the Federal Confidentiality of Alcohol and Drug Abuse Patient Records regulations: The Federal rules restrict any use of the information to criminally investigate or prosecute any alcohol or drug abuse patient.[facility] RehabilitationIn the event this information is protected by the Federal Confidentiality of Alcohol and Drug Abuse Patient Records regulations: The Federal rules restrict any use of the information to criminally investigate or prosecute any alcohol or drug abuse patient.[facility] RehabilitationIn the event this information is protected by the Federal Confidentiality of Alcohol and Drug Abuse Patient Records regulations: The Federal rules restrict any use of the information to criminally investigate or prosecute any alcohol or drug abuse patient.[facility] RehabilitationIn the event this information is protected by the Federal Confidentiality of Alcohol and Drug Abuse Patient Records regulations: The Federal rules restrict any use of the information to criminally investigate or prosecute any alcohol or drug abuse patient.[facility] RehabilitationIn the event this information is protected by the Federal Confidentiality of Alcohol and Drug Abuse Patient Records regulations: The Federal rules restrict any use of the information to criminally investigate or prosecute any alcohol or drug abuse patient.[facility] RehabilitationIn the event this information is protected by the Federal Confidentiality of Alcohol and Drug Abuse Patient Records regulations: The Federal rules restrict any use of the information to criminally investigate or prosecute any alcohol or drug abuse patient.[facility] RehabilitationIn the event this information is protected by the Federal Confidentiality of Alcohol and Drug Abuse Patient Records regulations: The Federal rules restrict any use of the information to criminally investigate or prosecute any alcohol or drug abuse patient.[facility] RehabilitationIn the event this information is protected by the Federal Confidentiality of Alcohol and Drug Abuse Patient Records regulations: The Federal rules restrict any use of the information to criminally investigate or prosecute any alcohol or drug abuse patient.[facility] RehabilitationIn the event this information is protected by the Federal Confidentiality of Alcohol and Drug Abuse Patient Records regulations: The Federal rules restrict any use of the information to criminally investigate or prosecute any alcohol or drug abuse patient.[facility] Reason for Visit (unrecogniz ed section and [...] Reason Comments ER F/U Post concussion- loo mauro for 2nd opinion Reason Comments Establish Care [...] Dr. Samson Ruvalcaba DO Emergency Provider Active Brass [employer] Relationship Specialty Start Date End Date Daryn Gtz MD [address] [place], [place] [id number] PCP - General Family Medicine 06/26/24 [employer]isher Relationship Specialty Start Date End Date Daryn Gtz MD [address] [place], [place] [id number] PCP - General Family Medicine 06/26/24 Br[employer]isher Relationship Specialty Start Date End Date Daryn Gtz MD [address] [facility], [place] [id number] PCP - General Family Medicine 06/26/24 Team [...] End: November 05, 2024 Dr. David Lomax , Emergency Provider Active Start: November 05, 2024 [...] MD Primary Care Provider Acti ve Start: April 18, 2025 End: April 18, 2025 Dr. Kendrick Page MD Emergency Provider Active Sta rt: April 18, 2025 End: April 18, 2025 Team Status: Inactive Member Role/Relationship Status [...] MD Primary Care Provider Acti ve Start: April 18, 2025 End: April 18, 2025 Dr. Kendrick Page MD Attending Provider Active Sta rt: April 18, 2025 End: April 18, 2025 Dr. Kendrick Page MD Emergency Provider Active Sta rt: April 18, 2025 End: April 18, 2025 Team Status: Inactive Member Role/Relationship Status Dates Dr. Moustapha Gtz MD Primary Care Provider Acti ve Start: June 16, 2025 End: June 16, 2025 Dr. Kendrick Page MD Emergency Provider Active Sta rt: June 16, 2025 End: June 16, 2025 Goals (unrecognized section and content) Goals [...] ized section and content) DATE CREATED AUTHOR 06/19/2025 [facility] DATE CREATED AUTHOR AUTHOR'S JEANNIEIZ ATION 06/25/2025 [facility] FOR RECORDS PERTAINING TO PATIENTS WHO [...] BE BASED ON THE PRIMARY CLINICAL RECORDS. [facility] [employer] [facility]. provides no warranty or guarantee of the accuracy or completeness of information in this document.
== END 2025-08-24 18:18 | disposition left against medical advice (07) ==
LOC: ED 19:01
PROVIDERS: PCP Family Medicine
DX: Z53.21 Procedure and treatment not carried out due to patient leaving prior to being seen by health care provider (principal)

== ENCOUNTER 2025-08-24 20:21 | Emergency (ER) | payer SELFPAY ==
[2025-08-24 20:24] VITALS: BP 123/86; PULSE 82; RESP 18; TEMP 36.3; O2SAT 99; BMI 18.4
[2025-08-24 21:26] VITALS: O2SAT 100
--- OUTSIDE RECORDS SUMMARY | 2025-08-24 22:17 | XMS RPT_ITS | CCD ---
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 #### [facility] Laboratory [address] [place], [address] EST GFR - AA 135 mL/min Normal >60 [facility] Comment on above: Result Comment: Afri can Chinese GFR Calc Performed By: #### L 100.0100, L500.2500 #### [facility] Laboratory [address] [place], [address] GAP 7 Normal 5-15 [facility] Comment on above: Performed By: #### L 100.0100, L500.2500 #### [facility] Laboratory [address] [place], [address] GFR/1.73 sq M.predicted among non-blacks MDRD (S/P/Bld) [Vol rate/Area] 112 mL/min/{1.73_m2} Normal >60 [facility] Comment on above: Result Comment: Non- GFR Calc Performed By: #### L 100.0100, L500.2500 #### [facility] Laboratory [address] [place], [address] Glucose [Mass/Vol] 102 mg/dL Normal 74-106 [facility] Comment on above: Result Comment: Fast ing Glucose result from 100 to 125 mg/dL suggests IMPAIRED HOMEOSTASIS per A.D.A. criteria. Performed By: #### L 100.0100, L500.2500 #### [facility] Laboratory [address] [place], [address] Potassium [Moles/Vol] 4.4 mmol/L Normal 3.5-5.1 [facility] Comment on above: Performed By: #### L 100.0100, L500.2500 #### [facility] Laboratory [address] [place], [address] Sodium [Moles/Vol] 138 mmol/L Normal 136-145 [facility] Comment on above: Performed By: #### L 100.0100, L500.2500 #### [facility] Laboratory [address] [place], [address] Urea nitrogen [Mass/Vol] 10 mg/dL Normal 7-18 [facility] Comment on above: Performed By: #### L 100.0100, L500.2500 #### [facility] Laboratory [address] [place], [address] Basophil percentageOrdered B y: David Lomax on 11-05-2024 Basophils/100 WBC (Bld) 0.8 % 0-1 [facility] Blood urea nitrogen (BUN)/cr eatinine ratioOrdered By: David Lomax on 11-05-2024 Urea nitrogen/Creatinine [Mass ratio] 11.6 mg/mg 10-20 [facility] CBC W/Diff, Automatedon 02 Absolute Lymph 1.24 X10 3/uL Normal 0.83-4.51 [facility] Comment on above: Performed By: #### L 100.0100, L500.2500 #### [facility] Laboratory [address] [place], [address] Absolute Neut 2.4 X10 3/uL Normal 2.0-7.7 [facility] Comment on above: Performed By: #### L 100.0100, L500.2500 #### [facility] Laboratory [address] [place], [address] Basophils/100 WBC (Bld) 0.8 % Normal 0-1 [facility] Comment on above: Performed By: #### L 100.0100, L500.2500 #### [facility] Laboratory [address] [place], [address] Eosinophils/100 WBC (Bld) 0.3 % Normal 0-5 [facility] Comment on above: Performed By: #### L 100.0100, L500.2500 #### [facility] Laboratory [address] [place], [address] Erythrocyte distribution width (RBC) [Ratio] 12.2 % Normal 11.6-14.6 [facility] Comment on above: Performed By: #### L 100.0100, L500.2500 #### [facility] Laboratory [address] [place], [address] Hematocrit (Bld) [Volume fraction] 46.8 % Normal 40-54 [facility] Comment on above: Performed By: #### L 100.0100, L500.2500 #### [facility] Laboratory [address] [place], [address] Hemoglobin (Bld) [Mass/Vol] 16.2 g/dL Normal 13.0-16.5 [facility] Comment on above: Performed By: #### L 100.0100, L500.2500 #### [facility] Laboratory [address] [place], [address] IG% 0.000 Normal 0.0-0.9 [facility] Comment on above: Result Comment: IG% - Immature Granulocytes (promyelocytes, myelocytes and metamyelocytes) > 1% indicates that a LEFT SHIFT is Present. Performed By: #### L 100.0100, L500.2500 #### [facility] Laboratory [address] [place], [address] Lymphocytes/100 WBC (Bld) 32.3 % Normal 19-41 [facility] Comment on above: Performed By: #### L 100.0100, L500.2500 #### [facility] Laboratory [address] [place], [address] MCH (RBC) [Entitic mass] 31.6 pg Normal 27.0-32.0 [facility] Comment on above: Performed By: #### L 100.0100, L500.2500 #### [facility] Laboratory [address] [place], [address] MCHC (RBC) [Mass/Vol] 34.6 g/dL Normal 32-36 [facility] Comment on above: Performed By: #### L 100.0100, L500.2500 #### [facility] Laboratory [address] [place], [address] MCV (RBC) [Entitic vol] 91.4 fL Normal 80-94 [facility] Comment on above: Performed By: #### L 100.0100, L500.2500 #### [facility] Laboratory [address] [place], [address] Monocytes/100 WBC (Bld) 5.5 % Normal 0-10 [facility] Comment on above: Performed By: #### L 100.0100, L500.2500 #### [facility] Laboratory [address] [place], [address] Neutrophils/100 WBC (Bld) 61.1 % Normal 47-70 [facility] Comment on above: Performed By: #### L 100.0100, L500.2500 #### [facility] Laboratory [address] [place], [address] Nucleated RBC (Bld) [#/Vol] 0 10*3/uL Normal 0-5 [facility] Comment on above: Performed By: #### L 100.0100, L500.2500 #### [facility] Laboratory [address] [place], [address] Platelet mean volume (Bld) [Entitic vol] 9.3 fL Normal 6.2-12.0 [facility] Comment on above: Performed By: #### L 100.0100, L500.2500 #### [facility] Laboratory [address] [place], [address] Platelets (Bld) [#/Vol] 207 10*3/uL Normal 150-450 [facility] Comment on above: Performed By: #### L 100.0100, L500.2500 #### [facility] Laboratory [address] [place], [address] RBC (Bld) [#/Vol] 5.12 10*6/uL Normal 4.6-6.2 [facility] Comment on above: Performed By: #### L 100.0100, L500.2500 #### [facility] Laboratory [address] [place], [address] RDW SD 40.9 fl Normal 35.1-43.9 [facility] Comment on above: Performed By: #### L 100.0100, L500.2500 #### [facility] Laboratory [address] [place], [address] WBC (Bld) [#/Vol] 3.8 10*3/uL Low 4.4-11.0 [facility] Comment on above: Performed By: #### L 100.0100, L500.2500 #### [facility] Laboratory [address] [place], [address] Carbon dioxide measurementOr dered By: David Lomax on 11-05-2024 CO2 [Moles/Vol] 25.0 mmol/L 21.0-32.0 [facility] Chloride measurementOrdered By: David Lomax on 11-05-2024 Chloride [Moles/Vol] 106 mmol/L 98-107 [facility] Emergency Department Summary on 11-05-2024 Emergency Department Summary [facility] Medical Records Department [address] [place] [address] Emergency Department Summary 11/05/24 MR#: [id number] Acct: [id number] Name: REYNALDO ADDISON III Rep #: [id number] : 1995 29 From: David Lomax DO [...] sinus rhythm with a rate of 76. NM interval, QRS interval, and QTc intervals were all normal. Filer was normal. There are no acute ST or T wave changes. Prior EKG tracings: available for review Prior: Unchanged Treatment and Re-Evaluation :: Patient was advised of his findings. Patient was instructed to continue his BuSpar as prescribed. Patient was instructed to drink pl (more content not included)... Normal [facility] Eosinophil percentageOrdered By: David Lomax on 11-05-2024 Eosinophils/100 WBC (Bld) 0.3 % 0-5 [facility] Erythrocyte distribution wid th (RBC) [Ratio]Ordered By: David Lomax on 11-05-2024 Erythrocyte distribution width (RBC) [Entitic vol] 40.9 fL 35.1-43.9 [facility] Erythrocyte distribution wid th ratioOrdered By: David Lomax on 11-05-2024 Erythrocyte distribution width (RBC) [Ratio] 12.2 % 11.6-14.6 [facility] Estimated glomerular filtrat ion rate (GFR) AmericanOrdered By: David Lomax on 11-05-2024 Estimated GFR (MDRD) Amer 135 mL/min >60 [facility] Comment on above: GFR Calc Estimation of creatinine ramon aranceOrdered By: David Lomax on 11-05-2024 Estimated Creatinine Clearance Calc 85.38 ml/min [facility] Glomerular filtration rate ( GFR) estimationOrdered By: David Lomax on 11-05-2024 Estimated GFR (MDRD) Non-Af Amer 112 mL/min >60 [facility] Comment on above: Non- GFR Calc Glucose measurementOrdered B y: David Lomax on 11-05-2024 Glucose [Mass/Vol] 102 mg/dL 74-106 [facility] Comment on above: Fasting Glucose resu lt from 100 to 125 mg/dL suggests IMPAIRED HOMEOSTASIS per A.D.A. criteria. Hematocrit Auto (Bld) [Volum e fraction]Ordered By: David Lomax on 11-05-2024 Hematocrit (Bld) [Volume fraction] 46.8 % 40-54 [facility] Hemoglobin measurementOrdere d By: David Lomax on 11-05-2024 Hemoglobin (Bld) [Mass/Vol] 16.2 g/dL 13.0-16.5 [facility] Immature granulocytes/100 WB C Auto (Bld)Ordered By: David Lomax on 11-05-2024 Immature granulocytes/100 WBC (Bld) 0.000 % 0.0-0.9 [facility] Comment on above: IG% - Immature Granu locytes (promyelocytes, myelocytes and metamyelocytes) > 1% indicates that a LEFT SHIFT is Present. Lymphocytes Auto (Unsp spec) [#/Vol]Ordered By: David Lomax on 11-05-2024 Lymphocytes (Bld) [#/Vol] 1.24 10*3/uL 0.83-4.51 [facility] Lymphocytes/100 WBC Auto (Un sp spec)Ordered By: David Lomax on 11-05-2024 Lymphocytes/100 WBC (Bld) 32.3 % 19-41 [facility] MCV (mean corpuscular volume ) determinationOrdered By: David Lomax on 11-05-2024 MCV (RBC) [Entitic vol] 91.4 fL 80-94 [facility] Mean corpuscular hemoglobin (MCH) determinationOrdered By: David Lomax on 11-05-2024 MCH (RBC) [Entitic mass] 31.6 pg 27.0-32.0 [facility] Mean corpuscular hemoglobin concentration (MCHC) determinationOrdered By: David Lomax on 11-05-2024 MCHC (RBC) [Mass/Vol] 34.6 g/dL 32-36 [facility] Mean platelet volume determi nationOrdered By: David Lomax on 11-05-2024 Platelet mean volume (Bld) [Entitic vol] 9.3 fL 6.2-12.0 [facility] Monocyte percentageOrdered B y: David Lomax on 11-05-2024 Monocytes/100 WBC (Bld) 5.5 % 0-10 [facility] Neutrophil percentageOrdered By: David Lomax on 11-05-2024 Neutrophils/100 WBC (Bld) 61.1 % 47-70 [facility] Nucleated red blood cell per centageOrdered By: David Lomax on 11-05-2024 Nucleated RBC/100 WBC (Bld) [Ratio] 0 % 0-5 [facility] Platelet countOrdered By: Bulmaro Lomax on 11-05-2024 Platelets (Bld) [#/Vol] 207 10*3/uL 150-450 [facility] Potassium measurementOrdered By: David Lomax on 11-05-2024 Potassium [Moles/Vol] 4.4 mmol/L 3.5-5.1 [facility] RBC Auto (Bld) [#/Vol]Ordere d By: David Lomax on 11-05-2024 RBC (Bld) [#/Vol] 5.12 10*6/uL 4.6-6.2 [facility] Serum anion gap measurementO rdered By: David Lomax on 11-05-2024 Anion gap [Moles/Vol] 7 mmol/L 5-15 [facility] Serum or plasma calcium yoni urement (mass/volume)Ordered By: David Lomax on 11-05-2024 Calcium [Mass/Vol] 9.1 mg/dL 8.5-10.1 [facility] Serum or plasma creatinine m easurement (mass/volume)Ordered By: David Lomax on 11-05-2024 Creatinine [Mass/Vol] 0.86 mg/dL 0.70-1.30 [facility] Comment on above: The validity of the calculated GFR & GFRAA in patients over 70 years has not been determined. Clinical correlation is essential. Serum or plasma urea nitroge n measurement (mass/volume)Ordered By: David Lomax on 11-05-2024 Urea nitrogen [Mass/Vol] 10 mg/dL 7-18 [facility] Sodium levelOrdered By: David Lomax on 11-05-2024 Sodium [Moles/Vol] 138 mmol/L 136-145 [facility] White blood cell (WBC) count Ordered By: David Lomax on 11-05-2024 WBC (Bld) [#/Vol] 3.8 10*3/uL Low 4.4-11.0 [facility] CNOVon 07-23-2024 CNOV Office Visit (UCTR ) REYNALDO ADDISON ([id number]) 1995 M Date Time Provider Department 07/23/24 10:00 AM GENEVIEVE WADE [facility] During your visit today, we recorded the following information about you: Temperature Pulse Respiration Blood pressure 98.6 degrees 92/minute 18/minute 112/75 Weight 50.4 kg Genevieve Wade APRN.HOSPITAL PHARMACIST 07/23/2024 10:23 AM Signed Subjective HPI HPI [...] DOXYCYCLINE MONOHYDRATE 100 MG TABLET Genevieve Wade APRN.HOSPITAL PHARMACIST Allergies As of Date: 07/23/2024 Noted Allergy [...] as of (more content not included)... Normal [facility] 12 Lead EKGon 07-20-2024 12 Lead EKG [facility] Cardiovascular Services [address] [place] [address] 12 Lead EKG 07/20/24 1802 MR#: [id number] Acct: [id number] Name: REYNALDO ADDISON III Rep #: [id number] : 1995 29 From: Brian Amaya MD [...] enlargement Borderline ECG Confirmed by Brian Amaya ([id number]), mapping editor OLIVA BOLANOS ([id number]) on 07/21/2024 1:40:14 PM Referred By: Jalil Gomez Confirmed By:Brian Amaya 07/21/24 1340 Date Brian Amaya MD CC: Dr. Moustapha Gtz MD; Dr. Jalil Gomez DO Signed Normal [facility] Basic Metabolic Profile (BMP )on 07-20-2024 BUN/CRE 11.9 RATIO Normal -20 [facility] Comment on above: Performed By: #### L 500.2500, L501.5200, L100.0100 #### [facility] Laboratory [address] [place], [address] CA,Total 9.0 mg/dL Normal 8.5-10.1 [facility] Comment on above: Performed By: #### L 500.2500, L501.5200, L100.0100 #### [facility] Laboratory [address] [place], [address] Chloride [Moles/Vol] 108 mmol/L High 98-107 [facility] Comment on above: Performed By: #### L 500.2500, L501.5200, L100.0100 #### [facility] Laboratory [address] [place], [address] CO2 [Moles/Vol] 25.0 mmol/L Normal 21.0-32.0 [facility] Comment on above: Performed By: #### L 500.2500, L501.5200, L100.0100 #### [facility] Laboratory [address] [place], [address] Creatinine [Mass/Vol] 0.76 mg/dL Normal 0.70-1.30 [facility] Comment on above: Result Comment: The validity of the calculated GFR GFRAA in patients over 70 years has not been determined. Clinical correlation is essential. Performed By: #### L 500.2500, L501.5200, L100.0100 #### [facility] Laboratory [address] [place], [address] ECRCL 106.00 ml/min Normal [facility] Comment on above: Performed By: #### L 500.2500, L501.5200, L100.0100 #### [facility] Laboratory [address] [place], [address] EST GFR - AA 157 mL/min Normal >60 [facility] Comment on above: Result Comment: Afri can Chinese GFR Calc Performed By: #### L 500.2500, L501.5200, L100.0100 #### [facility] Laboratory [address] [place], [address] GAP 6 Normal 5-15 [facility] Comment on above: Performed By: #### L 500.2500, L501.5200, L100.0100 #### [facility] Laboratory [address] [place], [address] GFR/1.73 sq M.predicted among non-blacks MDRD (S/P/Bld) [Vol rate/Area] 129 mL/min/{1.73_m2} Normal >60 [facility] Comment on above: Result Comment: Non- GFR Calc Performed By: #### L 500.2500, L501.5200, L100.0100 #### [facility] Laboratory [address] [place], [address] Glucose [Mass/Vol] 104 mg/dL Normal 74-106 [facility] Comment on above: Result Comment: Fast ing Glucose result from 100 to 125 mg/dL suggests IMPAIRED HOMEOSTASIS per A.D.A. criteria. Performed By: #### L 500.2500, L501.5200, L100.0100 #### [facility] Laboratory [address] [place], [address] Potassium [Moles/Vol] 3.6 mmol/L Normal 3.5-5.1 [facility] Comment on above: Performed By: #### L 500.2500, L501.5200, L100.0100 #### [facility] Laboratory [address] [place], [address] Sodium [Moles/Vol] 138 mmol/L Normal 136-145 [facility] Comment on above: Performed By: #### L 500.2500, L501.5200, L100.0100 #### [facility] Laboratory [address] [place], [address] Urea nitrogen [Mass/Vol] 9 mg/dL Normal 7-18 [facility] Comment on above: Performed By: #### L 500.2500, L501.5200, L100.0100 #### [facility] [address] [place], [address] CBC W/Diff, Automatedon 10-1 Absolute Lymph 0.99 X10 3/uL Normal 0.83-4.51 [facility] Comment on above: Performed By: #### L 500.2500, L501.5200, L100.0100 #### [facility] [address] [place], [address] Absolute Neut 3.5 X10 3/uL Normal 2.0-7.7 [facility] Comment on above: Performed By: #### L 500.2500, L501.5200, L100.0100 #### [facility] [address] [place], [address] Basophils/100 WBC (Bld) 0.6 % Normal 0-1 [facility] Comment on above: Performed By: #### L 500.2500, L501.5200, L100.0100 #### [facility] [address] [place], [address] Eosinophils/100 WBC (Bld) 0.6 % Normal 0-5 [facility] Comment on above: Performed By: #### L 500.2500, L501.5200, L100.0100 #### [facility] [address] [place], [address] Erythrocyte distribution width (RBC) [Ratio] 12.7 % Normal 11.6-14.6 [facility] Comment on above: Performed By: #### L 500.2500, L501.5200, L100.0100 #### [facility] [address] [place], [address] Hematocrit (Bld) [Volume fraction] 41.1 % Normal 40-54 [facility] Comment on above: Performed By: #### L 500.2500, L501.5200, L100.0100 #### [facility] [address] [place], [address] Hemoglobin (Bld) [Mass/Vol] 14.2 g/dL Normal 13.0-16.5 [facility] Comment on above: Performed By: #### L 500.2500, L501.5200, L100.0100 #### [facility] [address] [place], [address] IG% 0.200 Normal 0.0-0.9 [facility] Comment on above: Result Comment: IG% - Immature Granulocytes (promyelocytes, myelocytes and metamyelocytes) > 1% indicates that a LEFT SHIFT is Present. Performed By: #### L 500.2500, L501.5200, L100.0100 #### [facility] [address] [place], [address] Lymphocytes/100 WBC (Bld) 19.4 % Normal 19-41 [facility] Comment on above: Performed By: #### L 500.2500, L501.5200, L100.0100 #### [facility] [address] [place], [address] MCH (RBC) [Entitic mass] 31.8 pg Normal 27.0-32.0 [facility] Comment on above: Performed By: #### L 500.2500, L501.5200, L100.0100 #### [facility] [address] [place], [address] MCHC (RBC) [Mass/Vol] 34.5 g/dL Normal 32-36 [facility] Comment on above: Performed By: #### L 500.2500, L501.5200, L100.0100 #### [facility] [address] [place], [address] MCV (RBC) [Entitic vol] 92.2 fL Normal 80-94 [facility] Comment on above: Performed By: #### L 500.2500, L501.5200, L100.0100 #### [facility] [address] [place], [address] Monocytes/100 WBC (Bld) 10.0 % Normal 0-10 [facility] Comment on above: Performed By: #### L 500.2500, L501.5200, L100.0100 #### [facility] [address] [place], [address] Neutrophils/100 WBC (Bld) 69.2 % Normal 47-70 [facility] Comment on above: Performed By: #### L 500.2500, L501.5200, L100.0100 #### [facility] [address] [place], [address] Nucleated RBC (Bld) [#/Vol] 0 10*3/uL Normal 0-5 [facility] Comment on above: Performed By: #### L 500.2500, L501.5200, L100.0100 #### [facility] [address] [place], [address] Platelet mean volume (Bld) [Entitic vol] 9.6 fL Normal 6.2-12.0 [facility] Comment on above: Performed By: #### L 500.2500, L501.5200, L100.0100 #### [facility] [address] [place], [address] Platelets (Bld) [#/Vol] 185 10*3/uL Normal 150-450 [facility] Comment on above: Performed By: #### L 500.2500, L501.5200, L100.0100 #### [facility] [address] [place], [address] RBC (Bld) [#/Vol] 4.46 10*6/uL Low 4.6-6.2 [facility] Comment on above: Performed By: #### L 500.2500, L501.5200, L100.0100 #### [facility] [address] [place], [address] RDW SD 43.0 fl Normal 35.1-43.9 [facility] Comment on above: Performed By: #### L 500.2500, L501.5200, L100.0100 #### [facility] [address] [place], [address] WBC (Bld) [#/Vol] 5.1 10*3/uL Normal 4.4-11.0 [facility] Comment on above: Performed By: #### L 500.2500, L501.5200, L100.0100 #### [facility] [address] [place], [address] Emergency Department Summary on 07-20-2024 Emergency Department Summary [facility] Medical Records Department [address] [place] [address] Emergency Department Summary 07/20/24 MR#: [id number] Acct: [id number] Name: REYNALDO ADDISON III Rep #: [id number] : 1995 29 From: Jalil Gomez DO [...] any wheezing stridor swelling rashes. Noted fever. [facility] Medical History (Updated 07/20/24 @ 19:48 [...] his prescri (more content not included)... Normal [facility] Magnesiumon 07-20-2024 Magnesium [Mass/Vol] 2.2 mg/dL Normal 1.6-2.6 [facility] Comment on above: Performed By: #### L 500.2500, L501.5200, L100.0100 #### [facility] [address] [facility] [place], [address] CNCOon 06-29-2024 CNCO Letter Text Normal [facility] 12 Lead EKGon 06-28-2024 12 Lead EKG [facility] Cardiovascular Services [address] [place] [address] 12 Lead EKG 06/28/24 0910 MR#: [id number] Acct: [id number] Name: REYNALDO ADDISON III Rep #: [id number] : 1995 29 From: Brian Amaya MD [...] Normal ECG Confirmed by Brian Amaya ([id number]), mapping editor BASHIR MAIN ([id number]) on 06/30/2024 9:42:05 AM Referred By: Confirmed By:Brian Amaya 06/30/24 0942 Date Brian Amaya MD CC: Dr. Moustapha Gtz MD; Dr. Jelani Scott DO Signed Normal [facility] Basic Metabolic Profile (BMP )on 06-28-2024 BUN/CRE 11.3 RATIO Normal 10-20 [facility] Comment on above: Order Comment: 'TROP ' Serial specimen #1, #2 or #3: 1 Performed By: #### L 500.2500, L501.4020, L100.0100 #### [facility] [address] [place], [address] CA,Total 9.6 mg/dL Normal 8.5-10.1 [facility] Comment on above: Order Comment: 'TROP ' Serial specimen #1, #2 or #3: 1 Performed By: #### L 500.2500, L501.4020, L100.0100 #### [facility] [address] [place], [address] Chloride [Moles/Vol] 107 mmol/L Normal 98-107 [facility] Comment on above: Order Comment: 'TROP ' Serial specimen #1, #2 or #3: 1 Performed By: #### L 500.2500, L501.4020, L100.0100 #### [facility] [address] [place], [address] CO2 [Moles/Vol] 29.0 mmol/L Normal 21.0-32.0 [facility] Comment on above: Order Comment: 'TROP ' Serial specimen #1, #2 or #3: 1 Performed By: #### L 500.2500, L501.4020, L100.0100 #### [facility] [address] [place], [address] Creatinine [Mass/Vol] 0.88 mg/dL Normal 0.70-1.30 [facility] Comment on above: Order Comment: 'TROP ' Serial specimen #1, #2 or #3: 1 Result Comment: The validity of the calculated GFR GFRAA in patients over 70 years has not been determined. Clinical correlation is essential. Performed By: #### L 500.2500, L501.4020, L100.0100 #### [facility] [address] [place], [address] ECRCL 90.59 ml/min Normal [facility] Comment on above: Order Comment: 'TROP ' Serial specimen #1, #2 or #3: 1 Performed By: #### L 500.2500, L501.4020, L100.0100 #### [facility] [address] [place], [address] EST GFR - AA 131 mL/min Normal >60 [facility] Comment on above: Order Comment: 'TROP ' Serial specimen #1, #2 or #3: 1 Result Comment: Afri can Chinese GFR Calc Performed By: #### L 500.2500, L501.4020, L100.0100 #### [facility] [address] [place], [address] GAP 3 Low 5-15 [facility] Comment on above: Order Comment: 'TROP ' Serial specimen #1, #2 or #3: 1 Performed By: #### L 500.2500, L501.4020, L100.0100 #### [facility] [address] [place], [address] GFR/1.73 sq M.predicted among non-blacks MDRD (S/P/Bld) [Vol rate/Area] 108 mL/min/{1.73_m2} Normal >60 [facility] Comment on above: Order Comment: 'TROP ' Serial specimen #1, #2 or #3: 1 Result Comment: Non- GFR Calc Performed By: #### L 500.2500, L501.4020, L100.0100 #### [facility] [address] [place], [address] Glucose [Mass/Vol] 109 mg/dL High 74-106 [facility] Comment on above: Order Comment: 'TROP ' Serial specimen #1, #2 or #3: 1 Result Comment: Fast ing Glucose result from 100 to 125 mg/dL suggests IMPAIRED HOMEOSTASIS per A.D.A. criteria. Performed By: #### L 500.2500, L501.4020, L100.0100 #### [facility] [address] [place], [address] Potassium [Moles/Vol] 3.6 mmol/L Normal 3.5-5.1 [facility] Comment on above: Order Comment: 'TROP ' Serial specimen #1, #2 or #3: 1 Performed By: #### L 500.2500, L501.4020, L100.0100 #### [facility] [address] [place], [address] Sodium [Moles/Vol] 139 mmol/L Normal 136-145 [facility] Comment on above: Order Comment: 'TROP ' Serial specimen #1, #2 or #3: 1 Performed By: #### L 500.2500, L501.4020, L100.0100 #### [facility] [address] [place], [address] Urea nitrogen [Mass/Vol] 10 mg/dL Normal 7-18 [facility] Comment on above: Order Comment: 'TROP ' Serial specimen #1, #2 or #3: 1 Performed By: #### L 500.2500, L501.4020, L100.0100 #### [facility] [address] [place], [address] CBC W/Diff, Automatedon 09-2 Absolute Lymph 1.97 X10 3/uL Normal 0.83-4.51 [facility] Comment on above: Performed By: #### L 500.2500, L501.4020, L100.0100 #### [facility] [address] [place], [address] Absolute Neut 2.6 X10 3/uL Normal 2.0-7.7 [facility] Comment on above: Performed By: #### L 500.2500, L501.4020, L100.0100 #### [facility] [address] [place], [address] Basophils/100 WBC (Bld) 0.6 % Normal 0-1 [facility] Comment on above: Performed By: #### L 500.2500, L501.4020, L100.0100 #### [facility] [address] [place], [address] Eosinophils/100 WBC (Bld) 0.8 % Normal 0-5 [facility] Comment on above: Performed By: #### L 500.2500, L501.4020, L100.0100 #### [facility] [address] [place], [address] Erythrocyte distribution width (RBC) [Ratio] 12.8 % Normal 11.6-14.6 [facility] Comment on above: Performed By: #### L 500.2500, L501.4020, L100.0100 #### [facility] [address] [place], [address] Hematocrit (Bld) [Volume fraction] 41.9 % Normal 40-54 [facility] Comment on above: Performed By: #### L 500.2500, L501.4020, L100.0100 #### [facility] [address] [place], [address] Hemoglobin (Bld) [Mass/Vol] 14.2 g/dL Normal 13.0-16.5 [facility] Comment on above: Performed By: #### L 500.2500, L501.4020, L100.0100 #### [facility] [address] [place], [address] IG% 0.000 Normal 0.0-0.9 [facility] Comment on above: Result Comment: IG% - Immature Granulocytes (promyelocytes, myelocytes and metamyelocytes) > 1% indicates that a LEFT SHIFT is Present. Performed By: #### L 500.2500, L501.4020, L100.0100 #### [facility] [address] [place], [address] Lymphocytes/100 WBC (Bld) 38.9 % Normal 19-41 [facility] Comment on above: Performed By: #### L 500.2500, L501.4020, L100.0100 #### [facility] [address] [place], [address] MCH (RBC) [Entitic mass] 31.3 pg Normal 27.0-32.0 [facility] Comment on above: Performed By: #### L 500.2500, L501.4020, L100.0100 #### [facility] [address] [place], [address] MCHC (RBC) [Mass/Vol] 33.9 g/dL Normal 32-36 [facility] Comment on above: Performed By: #### L 500.2500, L501.4020, L100.0100 #### [facility] [address] [place], [address] MCV (RBC) [Entitic vol] 92.5 fL Normal 80-94 [facility] Comment on above: Performed By: #### L 500.2500, L501.4020, L100.0100 #### [facility] [address] [place], [address] Monocytes/100 WBC (Bld) 7.9 % Normal 0-10 [facility] Comment on above: Performed By: #### L 500.2500, L501.4020, L100.0100 #### [facility] [address] [place], [address] Neutrophils/100 WBC (Bld) 51.8 % Normal 47-70 [facility] Comment on above: Performed By: #### L 500.2500, L501.4020, L100.0100 #### [facility] [address] [place], [address] Nucleated RBC (Bld) [#/Vol] 0 10*3/uL Normal 0-5 [facility] Comment on above: Performed By: #### L 500.2500, L501.4020, L100.0100 #### [facility] [address] [place], [address] Platelet mean volume (Bld) [Entitic vol] 9.3 fL Normal 6.2-12.0 [facility] Comment on above: Performed By: #### L 500.2500, L501.4020, L100.0100 #### [facility] [address] [place], [address] Platelets (Bld) [#/Vol] 200 10*3/uL Normal 150-450 [facility] Comment on above: Performed By: #### L 500.2500, L501.4020, L100.0100 #### [facility] [address] [place], [address] RBC (Bld) [#/Vol] 4.53 10*6/uL Low 4.6-6.2 [facility] Comment on above: Performed By: #### L 500.2500, L501.4020, L100.0100 #### [facility] [address] [place], [address] RDW SD 43.3 fl Normal 35.1-43.9 [facility] Comment on above: Performed By: #### L 500.2500, L501.4020, L100.0100 #### [facility] [address] [place], [address] WBC (Bld) [#/Vol] 5.1 10*3/uL Normal 4.4-11.0 [facility] Comment on above: Performed By: #### L 500.2500, L501.4020, L100.0100 #### [facility] [address] [place], [address] Emergency Department Summary on 06-28-2024 Emergency Department Summary [facility] Medical Records Department [address] [place] [address] Emergency Department Summary 06/28/24 MR#: [id number] Acct: [id number] Name: REYNALDO ADDISON III Rep #: [id number] : 1995 29 From: Jelani Scott DO [...] states that has been driving his car lovz-aym-aowlm to work and notes that it is [...] has not had any Holter monitor placement. [facility] Medical History (Updated 06/28/24 @ 10:29 [...] knew that he was at [facility] years 2023 Skin: Warm, dry, tact Const [...] this point (more content not included)... Normal [facility] L501.4020on 06-28-2024 TROPONIN-I HS < 3 Low 3.0-78.0 [facility] Comment on above: Order Comment: 'TROP ' Serial specimen #1, #2 or #3: 1 Result Comment: Alecia rod Note: New Test Units and Gender Specific Reference Ranges. For more information see Policy Stat Procedure [place] High Sensitivity Troponin (TNIH) and attachments. Performed By: #### L 500.2500, L501.4020, L100.0100 #### [facility] [address] [place], [address] [facility] 06-27-2024 [facility] REYNALDO ADDISON ([id number]) 1995 M Date Time Provider Department 06/27/24 DARYN GTZ [facility] During your visit today, we recorded the [...] asking for rx to be sent to [facility] pharmacy. Pending rx needs completed. Daryn Gtz [...] VITAMIN D 25 HYDROXY [SQVITD] Order #: [id number] FUTURE cyanocobalamin (VITAMIN B-12) 1,000 mcg tabTake [...] Status:Closed by MING WEN on 07/04/24 Normal [facility] 25([place])D3 [place] 2023 25-hydroxyvitamin D3 [Mass/Vol] 7.3 ng/mL Low 31.0-80.0 [facility] Comment on above: Order Comment: Speci men Type: BLOOD SPECIMEN Ordering Facility: [facility] Address: [address] [place] [address] Result Comment: Clas sification of 25 [place] Vitamin D status: Deficiency/Insufficiency: < or = 30 ng/ml. Sufficiency/Optimal Levels: 31-80 ng/mL Toxicity: > 100 ng/mL. Test performed by chemiluminescent immunoassay. Performed By: #### 3 016-3, 2132-9, LIPNF, 93218-4 #### [facility] CLIA [id number] [address] [place] [address] [place] [address] [place] CBC W Auto Differential pane l (Bld)on 06-26-2024 Basophils (Bld) [#/Vol] 0.05 10*3/uL [facility] Basophils/100 WBC (Bld) 0.8 % [facility] Differential cell count method Nom (Bld) Auto [facility] Eosinophils (Bld) [#/Vol] 0.13 10*3/uL [facility] Eosinophils/100 WBC (Bld) 2.1 % [facility] Erythrocyte distribution width (RBC) [Ratio] 12.9 % 11.5 - 15.0 % [facility] Hematocrit (Bld) [Volume fraction] 46.2 % 39.0 - 51.0 % [facility] Hemoglobin (Bld) [Mass/Vol] 15.4 g/dL 13.0 - 17.0 g/dL [facility] Immature granulocytes (Bld) [#/Vol] [facility] Immature granulocytes/100 WBC (Bld) 0.2 % [facility] Lymphocytes (Bld) [#/Vol] 3.19 10*3/uL [facility] Lymphocytes/100 WBC (Bld) 52.0 % [facility] MCH (RBC) [Entitic mass] 31.4 pg 26. 0 - 34.0 pg [facility] MCHC (RBC) [Mass/Vol] 33.3 g/dL 30.5 - 36.0 g/dL [facility] MCV (RBC) [Entitic vol] 94.3 fL 80.0 - 100.0 fL [facility] Monocytes (Bld) [#/Vol] 0.43 10*3/uL [facility] Monocytes/100 WBC (Bld) 7.0 % [facility] Neutrophils (Bld) [#/Vol] 2.33 10*3/uL [facility] Neutrophils/100 WBC (Bld) 37.9 % [facility] Nucleated RBC (Bld) [#/Vol] [facility] Nucleated RBC/100 WBC (Bld) [Ratio] 0.0 % /100 WBC [facility] Platelet mean volume (Bld) [Entitic vol] 10.3 fL 9.0 - 12.7 fL [facility] Platelets (Bld) [#/Vol] 229 10*3/uL [facility] RBC (Bld) [#/Vol] 4.90 10*6/uL 4.20 - 6.0 0 m/uL [facility] WBC (Bld) [#/Vol] 6.14 10*3/uL [facility] Basophils (Bld) [#/Vol] 0.05 10*3/uL Normal <0.11 [facility] Comment on above: Order Comment: Speci men Type: BLOOD SPECIMEN Ordering Facility: [facility] Address: [address] [place] [address] Performed By: #### 3 016-3, 2132-06, LIPNF, #### [facility] CLIA [id number] [address] [place] [address] [place] Basophils/100 WBC (Bld) 0.8 % Normal [facility] Comment on above: Order Comment: Speci men Type: BLOOD SPECIMEN Ordering Facility: [facility] Address: [address] [place] [address] Performed By: #### 3 016-3, 2132-06, LIPNF, #### [facility] CLIA [id number] [address] [place] [address] [place] Differential cell count method Nom (Bld) Auto Normal [facility] Comment on above: Order Comment: Speci men Type: BLOOD SPECIMEN Ordering Facility: [facility] Address: [address] [place] [address] Performed By: #### 3 016-3, 2132-06, LIPNF, #### [facility] CLIA [id number] [address] [place] [address] [place] Eosinophils (Bld) [#/Vol] 0.13 10*3/uL Normal <0.46 [facility] Comment on above: Order Comment: Speci men Type: BLOOD SPECIMEN Ordering Facility: [facility] Address: [address] [place] [address] Performed By: #### 3 016-3, 2132-06, LIPNF, 57738-9 #### [facility] CLIA [id number] [address] [place] [address] [place] Eosinophils/100 WBC (Bld) 2.1 % Normal [facility] Comment on above: Order Comment: Speci men Type: BLOOD SPECIMEN Ordering Facility: [facility] Address: [address] [place] [place] [address] Performed By: #### 3 016-3, 2132-06, LIPNF, 73287-5 #### [facility] CLIA [id number] [address] [place] [address] [place] Erythrocyte distribution width (RBC) [Ratio] 12.9 % Normal 11.5-15.0 [facility] Comment on above: Order Comment: Speci men Type: BLOOD SPECIMEN Ordering Facility: [facility] Address: [address] [place] [address] Performed By: #### 3 016-3, 2132-06, LIPNF, #### [facility] CLIA [id number] [address] [place] [address] [place] Hematocrit (Bld) [Volume fraction] 46.2 % Normal 39.0-51.0 [facility] Comment on above: Order Comment: Speci men Type: BLOOD SPECIMEN Ordering Facility: [facility] Address: [address] [place] [place] [address] Performed By: #### 3 016-3, 2132-06, LIPNF, 48706-4 #### [facility] CLIA [id number] [address] [place] [address] [place] Hemoglobin (Bld) [Mass/Vol] 15.4 g/dL Normal 13.0-17.0 [facility] Comment on above: Order Comment: Speci men Type: BLOOD SPECIMEN Ordering Facility: [facility] Address: [address] [place] [place] [address] Performed By: #### 3 016-3, 9, LIPNF, 47149-0 #### [facility] CLIA [id number] [address] [place] [address] [place] Immature granulocytes (Bld) [#/Vol] 10*3/uL Normal <0.10 [facility] Comment on above: Order Comment: Speci men Type: BLOOD SPECIMEN Ordering Facility: [facility] Address: [address] [place] [place] [address] Performed By: #### 3 016-3, 2132-06, LIPNF, #### [facility] CLIA [id number] [address] [place] [address] [place] Immature granulocytes/100 WBC (Bld) 0.2 % Normal [facility] Comment on above: Order Comment: Speci men Type: BLOOD SPECIMEN Ordering Facility: [facility] Address: [address] [place] [place] [address] Performed By: #### 3 016-3, 2132-06, LIPNF, #### [facility] CLIA [id number] [address] [place] [address] [place] Lymphocytes (Bld) [#/Vol] 3.19 10*3/uL Normal 1.00-4.00 [facility] Comment on above: Order Comment: Speci men Type: BLOOD SPECIMEN Ordering Facility: [facility] Address: [address] [place] [place] [address] Performed By: #### 3 016-3, 2132-06, LIPNF, #### [facility] CLIA [id number] [address] [place] [address] [place] Lymphocytes/100 WBC (Bld) 52.0 % Normal [facility] Comment on above: Order Comment: Speci men Type: BLOOD SPECIMEN Ordering Facility: [facility] Address: [address] [place] [place] [address] Performed By: #### 3 016-3, 2132-06, LIPNF, 42533-7 #### [facility] CLIA [id number] [address] [place] [address] [place] MCH (RBC) [Entitic mass] 31.4 pg Normal 26.0-34.0 [facility] Comment on above: Order Comment: Speci men Type: BLOOD SPECIMEN Ordering Facility: [facility] Address: [address] [place] [address] Performed By: #### 3 016-3, 2132-06, LIPNF, #### [facility] CLIA [id number] [address] [place] [address] [place] MCHC (RBC) [Mass/Vol] 33.3 g/dL Normal 30.5-36.0 [facility] Comment on above: Order Comment: Speci men Type: BLOOD SPECIMEN Ordering Facility: [facility] Address: [address] [place] [place] [address] Performed By: #### 3 016-3, 2132-06, LIPNF, #### [facility] CLIA [id number] [address] [place] [address] [place] MCV (RBC) [Entitic vol] 94.3 fL Normal 80.0-100.0 [facility] Comment on above: Order Comment: Speci men Type: BLOOD SPECIMEN Ordering Facility: [facility] Address: [address] [place] [place] [address] Performed By: #### 3 016-3, 2132-06, LIPNF, #### [facility] CLIA [id number] [address] [place] [address] [place] Monocytes (Bld) [#/Vol] 0.43 10*3/uL Normal <0.87 [facility] Comment on above: Order Comment: Speci men Type: BLOOD SPECIMEN Ordering Facility: [facility] Address: [address] [place] [place] [address] Performed By: #### 3 016-3, 2132-06, LIPNF, #### [facility] CLIA [id number] [address] [place] [address] [place] Monocytes/100 WBC (Bld) 7.0 % Normal [facility] Comment on above: Order Comment: Speci men Type: BLOOD SPECIMEN Ordering Facility: [facility] Address: [address] [place] [address] Performed By: #### 3 016-3, 9, LIPNF, 93395-8 #### [facility] CLIA [id number] [address] [place] [address] [place] Neutrophils (Bld) [#/Vol] 2.33 10*3/uL Normal 1.45-7.50 [facility] Comment on above: Order Comment: Speci men Type: BLOOD SPECIMEN Ordering Facility: [facility] Address: [address] [place] [address] Performed By: #### 3 016-3, 9, LIPNF, #### [facility] CLIA [id number] [address] [place] [address] [place] Neutrophils/100 WBC (Bld) 37.9 % Normal [facility] Comment on above: Order Comment: Speci men Type: BLOOD SPECIMEN Ordering Facility: [facility] Address: [address] [place] [address] Performed By: #### 3 016-3, 9, LIPNF, 30842-0 #### [facility] CLIA [id number] [address] [place] [address] [place] Nucleated RBC (Bld) [#/Vol] 10*3/uL Normal <0.01 [facility] Comment on above: Order Comment: Speci men Type: BLOOD SPECIMEN Ordering Facility: [facility] Address: [address] [place] [address] Performed By: #### 3 016-3, 9, LIPNF, 16560-0 #### [facility] CLIA [id number] [address] [place] [address] [place] Nucleated RBC/100 WBC (Bld) [Ratio] 0.0 /100 WBC Normal [facility] Comment on above: Order Comment: Speci men Type: BLOOD SPECIMEN Ordering Facility: [facility] Address: [address] [place] [address] Performed By: #### 3 016-3, 9, LIPNF, 09099-9 #### [facility] CLIA [id number] [address] [place] [address] [place] Platelet mean volume (Bld) [Entitic vol] 10.3 fL Normal 9.0-12.7 [facility] Comment on above: Order Comment: Speci men Type: BLOOD SPECIMEN Ordering Facility: [facility] Address: [address] [place] [address] Performed By: #### 3 016-3, 9, LIPNF, 11880-5 #### [facility] CLIA [id number] [address] [place] [address] [place] Platelets (Bld) [#/Vol] 229 10*3/uL Normal 150-400 [facility] Comment on above: Order Comment: Speci men Type: BLOOD SPECIMEN Ordering Facility: [facility] Address: [address] [place] [place] [address] Performed By: #### 3 016-3, 9, LIPNF, 71972-4 #### [facility] CLIA [id number] [address] [place] [address] [place] RBC (Bld) [#/Vol] 4.90 10*6/uL Normal 4.20-6.00 [facility] Comment on above: Order Comment: Speci men Type: BLOOD SPECIMEN Ordering Facility: [facility] Address: [address] [place] [address] Performed By: #### 3 016-3, 9, LIPNF, 82593-2 #### [facility] CLIA [id number] [address] [place] [address] [place] WBC (Bld) [#/Vol] 6.14 10*3/uL Normal 3.70-11.00 [facility] Comment on above: Order Comment: Speci men Type: BLOOD SPECIMEN Ordering Facility: [facility] Address: [address] [place] [address] Performed By: #### 3 016-3, 2132-9, LIPFRANKIE, 45917-7 #### [facility] CLIA [id number] [address] [place] [address] [place] CNOVon 06-26-2024 CNOV Office Visit (FAMPWS ) REYNALDO ADDISON ([id number]) 1995 M Date Time Provider Department 06/26/24 12:20 PM [facility] During your visit today, we recorded [...] today by mother. 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 We discussed possible tension headache at last OV on 05/11 and patient returned to [facility] ER on 05/13 for same complaint [...] as nee (more content not included)... Normal [facility] Comprehensive metabolic 2000 panelon 06-26-2024 Albumin [Mass/Vol] 4.7 g/dL Normal 3.9-4.9 [facility] Comment on above: Order Comment: Mervat reeder Type: BLOOD SPECIMEN Ordering Facility: [facility] Address: [address] [place] [address] Performed By: #### L IPNF, 3016-3, 12724-2, 2132-9 #### [facility] CLIA [id number] [address] [place] [address] [place] [address] [place] ALP [Catalytic activity/Vol] 67 U/L Normal 38-113 [facility] Comment on above: Order Comment: Kacyi men Type: BLOOD SPECIMEN Ordering Facility: [facility] Address: [address] [place] [address] Performed By: #### L IPNF, 6-3, 31664-6, 2132-06 #### [facility] CLIA [id number] [address] [place] [address] [place] ALT [Catalytic activity/Vol] 17 U/L Normal 10-54 [facility] Comment on above: Order Comment: Speci men Type: BLOOD SPECIMEN Ordering Facility: [facility] Address: [address] [place] [address] Performed By: #### L IPNF, 6-3, 09364-4, 2132-06 #### [facility] CLIA [id number] [address] [place] [address] [place] Anion gap [Moles/Vol] 11 mmol/L Normal 8-15 [facility] Comment on above: Order Comment: Speci men Type: BLOOD SPECIMEN Ordering Facility: [facility] Address: [address] [place] [address] Performed By: #### L IPNF, 6-3, 36118-3, 2132-06 #### [facility] CLIA [id number] [address] [place] [address] [place] AST [Catalytic activity/Vol] 22 U/L Normal 14-40 [facility] Comment on above: Order Comment: Speci men Type: BLOOD SPECIMEN Ordering Facility: [facility] Address: [address] [place] [address] Performed By: #### L IPNF, 6-3, 56811-9, 2132-06 #### [facility] CLIA [id number] [address] [place] [address] [place] Bilirubin [Mass/Vol] 0.4 mg/dL Normal 0.2-1.3 [facility] Comment on above: Order Comment: Speci men Type: BLOOD SPECIMEN Ordering Facility: [facility] Address: [address] [place], [place] [address] Performed By: #### L IPNF, 3016-3, 82394-9, 2132-06 #### [facility] CLIA [id number] [address] [place] [address] [place] Calcium [Mass/Vol] 9.9 mg/dL Normal 8.5-10.2 [facility] Comment on above: Order Comment: Speci men Type: BLOOD SPECIMEN Ordering Facility: [facility] Address: [address] [place] [address] Performed By: #### L IPNF, 3016-3, 12470-2, 2132-06 #### [facility] CLIA [id number] [address] [place] [address] [place] Chloride [Moles/Vol] 103 mmol/L Normal 98-107 [facility] Comment on above: Order Comment: Speci men Type: BLOOD SPECIMEN Ordering Facility: [facility] Address: [address] [place] [address] Performed By: #### L IPNF, 6-3, 13300-5, 2132-06 #### [facility] CLIA [id number] [address] [place] [address] [place] CO2 [Moles/Vol] 28 mmol/L Normal 22-30 [facility] Comment on above: Order Comment: Speci men Type: BLOOD SPECIMEN Ordering Facility: [facility] Address: [address] [place] [place] [address] Performed By: #### L IPNF, 6-3, 07960-2, 2132-06 #### [facility] CLIA [id number] [address] [place] [address] [place] Creatinine [Mass/Vol] 0.80 mg/dL Normal 0.73-1.22 [facility] Comment on above: Order Comment: Speci men Type: BLOOD SPECIMEN Ordering Facility: [facility] Address: [address] [place] [address] Performed By: #### L IPNF, 3016-3, 23933-9, 9 #### [facility] CLIA [id number] [address] [place] [address] [place] Creatinine and Glomerular filtration rate.predicted panel (S/P/Bld) 123 mL/min/1.73m??? Normal >=60 [facility] Comment on above: Order Comment: Mervat reeder Type: BLOOD SPECIMEN Ordering Facility: [facility] Address: [address] [place] [address] Result Comment: Davida mated Glomerular Filtration Rate [...] GFR. Performed By: #### L IPNF, 3016-3, 23176-1, 2132-06 #### [facility] CLIA [id number] [address] [place] [address] [place] Glucose [Mass/Vol] 77 mg/dL Normal 74-99 [facility] Comment on above: Order Comment: Mervat reeder Type: BLOOD SPECIMEN Ordering Facility: [facility] Address: [address] [place] [address] Result Comment: The [place] Diabetes Association (ADA) provides guidance for cutoff [...] Standards of Medical Care in Diabetes 2016, [employer] Diabetes Association. Diabetes Care. 2016.39(Suppl 1). Performed By: #### L IPNF, 3016-3, 26944-3, 2132-06 #### [facility] CLIA [id number] [address] [place] [address] [place] Potassium [Moles/Vol] 4.4 mmol/L Normal 3.7-5.1 [facility] Comment on above: Order Comment: Speci men Type: BLOOD SPECIMEN Ordering Facility: [facility] Address: [address] [place] [address] Performed By: #### L IPNF, 6-3, 43586-0, 2132-06 #### [facility] CLIA [id number] [address] [place] [address] [place] Protein [Mass/Vol] 7.5 g/dL Normal 6.3-8.0 [facility] Comment on above: Order Comment: Speci men Type: BLOOD SPECIMEN Ordering Facility: [facility] Address: [address] [place] [address] Performed By: #### L IPNF, 6-3, 72120-5, 2132-06 #### [facility] CLIA [id number] [address] [place] [address] [place] Sodium [Moles/Vol] 142 mmol/L Normal 136-144 [facility] Comment on above: Order Comment: Speci men Type: BLOOD SPECIMEN Ordering Facility: [facility] Address: [address] [place] [address] Performed By: #### L IPNF, 6-3, 45582-1, 2132-06 #### [facility] CLIA [id number] [address] [place] [address] [place] Urea nitrogen [Mass/Vol] 7 mg/dL Low 9-24 [facility] Comment on above: Order Comment: Speci men Type: BLOOD SPECIMEN Ordering Facility: [facility] Address: [address] [place] [address] Performed By: #### L IPNF, 3015-3, , 2132-06 #### [facility] CLIA [id number] [address] [place] [address] [place] LIPID PANEL, NONFASTINGon Cholesterol [Mass/Vol] 153 mg/dL Normal <[address] [facility] Comment on above: Order Comment: Speci men Type: BLOOD SPECIMEN Ordering Facility: [facility] Address: [address] [place] [address] Result Comment: <200 mg/dL, Desirable 200-239 mg/dL, Borderline high >239 mg/dL, High Performed By: #### L KARO, 3015-3, , 2132-06 #### [facility] CLIA [id number] [address] [place] [address] [place] HDL CHOLESTEROL, NF 30 mg/dL Low >39 [facility] Comment on above: Order Comment: Speci men Type: BLOOD SPECIMEN Ordering Facility: [facility] Address: [address] [place] [address] Result Comment: 40-5 9 mg/dL, Acceptable >59 mg/dL, High: Negative risk factor for coronary heart disease <40 mg/dL, Low: Positive risk factor for coronary heart disease Performed By: #### L KARO, 3015-3, , 2132-06 #### [facility] CLIA [id number] [address] [place] [address] [place] LDL CHOLESTEROL, NF 93 mg/dL Normal <100 [facility] Comment on above: Order Comment: Speci men Type: BLOOD SPECIMEN Ordering Facility: [facility] Address: [address] [place] [address] Result Comment: <100 mg/dL, Optimal 100-129 mg/dL, Near optimal/above optimal 130-159 mg/dL, Borderline high 160-189 mg/dL, High >189 mg/dL, Very high Secondary prevention optimal LDL Cholesterol levels are recommended to be < 70 mg/dL Performed By: #### L IPFRANKIE, 6-3, , 2132-06 #### [facility] CLIA [id number] [address] [place] [address] [place] LDL/HDL RATIO, NF 3.10 mg/dL High <2.54 [facility] Comment on above: Order Comment: Mervat reeder Type: BLOOD SPECIMEN Ordering Facility: [facility] Address: [address] [place] [address] Result Comment: Kaiden mejia: 1. National Cholesterol Education Program ATP III Guideline At-A-Glance Quick Desk Reference: National Heart, Lung, and Blood [place]. National Institutes of Health. 2001: NIH Publication No. 01-3305. 2. An International Atherosclerosis Society position paper: global recommendations for the management of dyslipidemia: executive summary, Atherosclerosis. 2014: 232(2):410-413. Performed By: #### L KARO, 6-3, , 2132-06 #### [facility] CLIA [id number] [address] [place] [address] [place] NON HDL CHOL, NF 123 mg/dL Normal <130 [facility] Comment on above: Order Comment: Mervat reeder Type: BLOOD SPECIMEN Ordering Facility: [facility] Address: [address] [place] [address] Result Comment: <130 mg/dL, Optimal 130-159 mg/dL, Near optimal/above optimal 160-189 mg/dL, Borderline high 190-219 mg/dL, High >219 mg/dL, Very high Secondary prevention optimal non HDL Cholesterol levels are recommended to be <100 mg/dL Performed By: #### L IPNF, 6-3, 09370-6, 2132-06 #### [facility] CLIA [id number] [address] [place] [address] [place] T CHOL/HDL RATIO NF 5.10 mg/dL High <5.10 [facility] Comment on above: Order Comment: Mervat reeder Type: BLOOD SPECIMEN Ordering Facility: [facility] Address: [address] [place] [address] Performed By: #### L KARO, 6-3, , 2132-06 #### [facility] CLIA [id number] [address] [place] [address] [place] TRIGLYCERIDES, NF 149 mg/dL Normal <150 [facility] Comment on above: Order Comment: Speci men Type: BLOOD SPECIMEN Ordering Facility: [facility] Address: [address] [place] [address] Result Comment: <150 mg/dL, Normal 150-199 mg/dL, Borderline high 200-499 mg/dL, High >499 mg/dL, Very high Performed By: #### L KARO, 3015-3, , 2132-06 #### [facility] CLIA [id number] [address] [place] [address] [place] VLDL CHOLESTEROL, NF 30 mg/dL High <30 [facility] Comment on above: Order Comment: Speci men Type: BLOOD SPECIMEN Ordering Facility: [facility] Address: [address] [place] [address] Performed By: #### L KARO, 3015-3, , 2132-06 #### [facility] CLIA [id number] [address] [place] [address] [place] TSH SerPl-aCncon 06-26-2024 TSH Qn 2.440 m[IU]/L Normal 0.270-4.200 [facility] Comment on above: Order Comment: Speci men Type: BLOOD SPECIMEN Ordering Facility: [facility] Address: [address] [place] [address] Performed By: #### L KARO, 3015-3, , 2132-06 #### [facility] CLIA [id number] [address] [place] [address] [place] Vit B12 SerPl-mCncon 024 Cobalamin (Vitamin B12) [Mass/Vol] 200 pg/mL Low 232-1245 [facility] Comment on above: Order Comment: Speci men Type: BLOOD SPECIMEN Ordering Facility: [facility] Address: [address] [place] [address] Performed By: #### L IPNF, 3016-3, 34140-5, 2132-9 #### [facility] CLIA [id number] [address] [place] [address] [place] OF [facility] Absolute lymphocyte countOrd ered By: Deng Palmer on 09-06-2023 Lymphocytes Auto (Unsp spec) [#/Vol] 0.26 10*3/uL 0.83-4.51 [facility] Basophil percentageOrdered B y: Deng Palmer on 09-06-2023 Basophils/100 WBC (Bld) 0.4 % 0-1 [facility] Chloride [Moles/Vol] 103 mmol/L 98-107 [facility] Eosinophils/100 WBC (Bld) 0.2 % 0-5 [facility] Glucose [Mass/Vol] 96 mg/dL 74-106 [facility] Neutrophils (Bld) [#/Vol] 3.9 10*3/uL 2.0-7.7 [facility] Neutrophils/100 WBC (Bld) 81.9 % 47-70 [facility] Potassium [Moles/Vol] 3.9 mmol/L 3.5-5.1 [facility] Sodium [Moles/Vol] 136 mmol/L 136-145 [facility] WBC (Bld) [#/Vol] 4.8 10*3/uL 4.4-11.0 [facility] Blood erythrocytes count (nu mber/volume)Ordered By: Deng Palmer on 09-06-2023 RBC (Bld) [#/Vol] 4.54 10*6/uL 4.6-6.2 [facility] Blood hemoglobin measurement (mass/volume)Ordered By: Deng Palmer on 09-06-2023 Hemoglobin (Bld) [Mass/Vol] 14.0 g/dL 13.0-16.5 [facility] Blood lymphocytes/100 leukoc ytesOrdered By: Deng Palmer on 09-06-2023 Lymphocytes/100 WBC (Bld) 5.4 % 19-41 [facility] Blood manual differential co mment interpretation (narrative result)Ordered By: Deng Palmer on 09-06-2023 Manual differential comment Godwin (Bld) [Interp] SEE COMMENT [facility] Comment on above: LYMPHOPENIA NOTED Blood monocytes/100 leukocyt esOrdered By: Deng Palmer on 09-06-2023 Monocytes/100 WBC (Bld) 11.9 % 0-10 [facility] Blood platelet adequacy dete ction by light microscopyOrdered By: Deng Palmer on 09-06-2023 Platelets LM Ql (Bld) ADEQUATE ADEQ [facility] Blood platelet mean volumeOr dered By: eDng Palmer on 09-06-2023 Platelet mean volume (Bld) [Entitic vol] 9.7 fL 6.2-12.0 [facility] Determination of erythrocyte mean corpuscular volume (MCV)Ordered By: Deng Palmer on 09-06-2023 MCV (RBC) [Entitic vol] 92.1 fL 80-94 [facility] Hematocrit Auto (Bld) [Volum e fraction]Ordered By: Deng Palmer on 09-06-2023 Hematocrit (Bld) [Volume fraction] 41.8 % 40-54 [facility] Influenza virus A and B and SARS-CoV-2 (COVID-19) Ag panel - Upper respiratory specimOrdered By: Deng Palmer on 09-06-2023 SARS-CoV-2 & FLU Antigen (Rapid) SARS-CoV-2 (COVID 19) [facility] Laboratory - Chemistry and C hemistry - challengeOrdered By: Deng Palmer on 09-06-2023 CO2 [Moles/Vol] 26.0 mmol/L 21.0-32.0 [facility] Urea nitrogen/Creatinine [Mass ratio] 7.1 mg/mg 10-20 [facility] Laboratory - Hematology and Cell countsOrdered By: Deng Palmer on 09-06-2023 Anisocytosis Ql (Bld) RARE [facility] Erythrocyte distribution width (RBC) [Entitic vol] 43.7 fL 35.1-43.9 [facility] Erythrocyte distribution width (RBC) [Ratio] 12.9 % 11.6-14.6 [facility] Immature granulocytes/100 WBC (Bld) 0.200 % 0.0-0.9 [facility] Comment on above: IG% - Immature Granu locytes (promyelocytes, myelocytes and metamyelocytes) > 1% indicates that a LEFT SHIFT is Present. MCH (RBC) [Entitic mass] 30.8 pg 27.0-32.0 [facility] Nucleated RBC/100 WBC (Bld) [Ratio] 0 % 0-5 [facility] MCHC Auto (RBC) [Mass/Vol]Or dered By: Deng Palmer on 09-06-2023 MCHC (RBC) [Mass/Vol] 33.5 g/dL 32-36 [facility] Macrocytes detectionOrdered By: Deng Palmer on 09-06-2023 Macrocytes Ql (Bld) RARE [facility] No Panel InformationOrdered By: Deng Palmer on 09-06-2023 Estimated Creatinine Clearance Calc 83.33 ml/min [facility] Estimated GFR (MDRD) Amer 139 mL/min >60 [facility] Comment on above: GFR Calc Estimated GFR (MDRD) Non-Af Amer 115 mL/min >60 [facility] Comment on above: Non- GFR Calc Platelets bldOrdered By: Antonio Palmer on 09-06-2023 Platelets (Bld) [#/Vol] 163 10*3/uL 150-450 [facility] RBC morphologyOrdered By: Neymar Porter on 09-06-2023 RBC morphology finding Nom (Bld) N CHROM NORMAL NORM C&C [facility] Serum or plasma calcium yoni urement (mass/volume)Ordered By: Deng Palmer on 09-06-2023 Calcium [Mass/Vol] 9.0 mg/dL 8.5-10.1 [facility] Serum or plasma creatinine m easurement (mass/volume)Ordered By: Deng Palmer on 09-06-2023 Creatinine [Mass/Vol] 0.84 mg/dL 0.70-1.30 [facility] Comment on above: The validity of the calculated GFR & GFRAA in patients over 70 years has not been determined. Clinical correlation is essential. Serum or plasma urea nitroge n measurement (mass/volume)Ordered By: Deng Palmer on 09-06-2023 Urea nitrogen [Mass/Vol] 6 mg/dL 7-18 [facility] Thin prep Papanicolaou smear with manual screeningOrdered By: Deng Palmer on 09-06-2023 Thin prep Papanicolaou smear with manual screening 7 5-15 [facility] STREP A MOLECULAR (POC)on Procedural Control Valid [facility] Strep A (POCT) Negative Negative [facility] Absolute lymphocyte countOrd ered By: Hossein Weber on 05-30-2023 Lymphocytes Auto (Unsp spec) [#/Vol] 3.50 10*3/uL 0.83-4.51 [facility] Basophil percentageOrdered B y: Hossein Weber on 05-30-2023 Basophils/100 WBC (Bld) 0.7 % 0-1 [facility] Chloride [Moles/Vol] 105 mmol/L 98-107 [facility] Eosinophils/100 WBC (Bld) 1.1 % 0-5 [facility] Glucose [Mass/Vol] 101 mg/dL 74-106 [facility] Comment on above: Fasting Glucose resu lt from 100 to 125 mg/dL suggests IMPAIRED HOMEOSTASIS per A.D.A. criteria. Neutrophils (Bld) [#/Vol] 2.8 10*3/uL 2.0-7.7 [facility] Neutrophils/100 WBC (Bld) 40.1 % 47-70 [facility] Potassium [Moles/Vol] 4.0 mmol/L 3.5-5.1 [facility] Comment on above: Moderate Hemolysis, Result may be falsely increased. Sodium [Moles/Vol] 140 mmol/L 136-145 [facility] WBC (Bld) [#/Vol] 7.1 10*3/uL 4.4-11.0 [facility] Blood erythrocytes count (nu mber/volume)Ordered By: Hossein Weber on 05-30-2023 RBC (Bld) [#/Vol] 4.94 10*6/uL 4.6-6.2 [facility] Blood hemoglobin measurement (mass/volume)Ordered By: Hossein Weber on 05-30-2023 Hemoglobin (Bld) [Mass/Vol] 15.5 g/dL 13.0-16.5 [facility] Blood lymphocytes/100 leukoc ytesOrdered By: Hossein Weber on 05-30-2023 Lymphocytes/100 WBC (Bld) 49.6 % 19-41 [facility] Blood monocytes/100 leukocyt esOrdered By: Hossein Weber on 05-30-2023 Monocytes/100 WBC (Bld) 8.4 % 0-10 [facility] Blood platelet mean volumeOr dered By: Hossein Weber on 05-30-2023 Platelet mean volume (Bld) [Entitic vol] 9.6 fL 6.2-12.0 [facility] Determination of erythrocyte mean corpuscular volume (MCV)Ordered By: Hossein Weber on 05-30-2023 MCV (RBC) [Entitic vol] 93.5 fL 80-94 [facility] Hematocrit Auto (Bld) [Volum e fraction]Ordered By: Hossein Weber on 05-30-2023 Hematocrit (Bld) [Volume fraction] 46.2 % 40-54 [facility] Laboratory - Chemistry and C hemistry - challengeOrdered By: Hossein Weber on 05-30-2023 CO2 [Moles/Vol] 29.0 mmol/L 21.0-32.0 [facility] Urea nitrogen/Creatinine [Mass ratio] 7.8 mg/mg 10-20 [facility] Laboratory - Hematology and Cell countsOrdered By: Hossein Weber on 05-30-2023 Erythrocyte distribution width (RBC) [Entitic vol] 43.7 fL 35.1-43.9 [facility] Erythrocyte distribution width (RBC) [Ratio] 12.6 % 11.6-14.6 [facility] Immature granulocytes/100 WBC (Bld) 0.100 % 0.0-0.9 [facility] Comment on above: IG% - Immature Granu locytes (promyelocytes, myelocytes and metamyelocytes) > 1% indicates that a LEFT SHIFT is Present. MCH (RBC) [Entitic mass] 31.4 pg 27.0-32.0 [facility] Nucleated RBC/100 WBC (Bld) [Ratio] 0 % 0-5 [facility] MCHC Auto (RBC) [Mass/Vol]Or dered By: Hossein Weber on 05-30-2023 MCHC (RBC) [Mass/Vol] 33.5 g/dL 32-36 [facility] No Panel InformationOrdered By: Hossein Weber on 05-30-2023 Troponin I High Sensitivity < 3 pg/mL 3.0-78.0 [facility] Comment on above: Please Note: New Mandie t Units and Gender Specific Reference Ranges. For more information see Policy Stat Procedure [place] High Sensitivity Troponin (TNIH) and attachments. Estimated Creatinine Clearance Calc 80.07 ml/min [facility] Estimated GFR (MDRD) Amer 131 mL/min >60 [facility] Comment on above: GFR Calc Estimated GFR (MDRD) Non-Af Amer 108 mL/min >60 [facility] Comment on above: Non- GFR Calc Platelets bldOrdered By: Raul Weber on 05-30-2023 Platelets (Bld) [#/Vol] 190 10*3/uL 150-450 [facility] Serum or plasma calcium yoni urement (mass/volume)Ordered By: Hossein Weber on 05-30-2023 Calcium [Mass/Vol] 9.2 mg/dL 8.5-10.1 [facility] Serum or plasma creatinine m easurement (mass/volume)Ordered By: Hossein Weber on 05-30-2023 Creatinine [Mass/Vol] 0.89 mg/dL 0.70-1.30 [facility] Comment on above: The validity of the calculated GFR & GFRAA in patients over 70 years has not been determined. Clinical correlation is essential. Serum or plasma urea nitroge n measurement (mass/volume)Ordered By: Hossein Weber on 05-30-2023 Urea nitrogen [Mass/Vol] 7 mg/dL 7-18 [facility] Thin prep Papanicolaou smear with manual screeningOrdered By: Hossein Weber on 05-30-2023 Thin prep Papanicolaou smear with manual screening 6 -15 [facility] XR Chest PA and Lateralon IMPRESSION: No active disease. Customer Experience Associate: OTILIO Transcribe Date/Time: Mar 18 2021 5:45P Dictated by : RAMOS MATTA MD This examination was interpreted and the report reviewed and electronically signed by: RAMOS MATTA MD on Mar 18 2021 5:46PM [facility] DIVISION OF RADIOLOGY * * [...] Unremarkable. DIVISION OF RADIOLOGY Provider, Jim Royal [facility] - 03/18/2021 * * *Final Report* * [...] tissues: Unremarkable. IMPRESSION IMPRESSION: No active disease. Customer Experience Associate: PSCB Transcribe Date/Time: Mar 18 2021 5:45P Dictated by : RAMOS MATTA MD This examination was interpreted and the report reviewed and electronically signed by: RAMOS MATTA MD on Mar 18 2021 5:46PM EST [facility] Radiology Study observation (narrative) Lleo Rojas XR Chest PA and LateralOrder ed By: [facility] Provider on 03-18-2021 [facility] Vital Signs Date Time Vital Sign Value Performing Clinician Facility 06-16-2025 22:27-0400 Body temperature 98.1 [degF] Dr. Moustapha Gtz MD Work Phone: [facility] 06-16-2025 22:27-0400 Diastolic blood pressure 67 mm[Hg] Dr. Moustapha Gtz MD Work Phone: 8(922)492-253017 [place] [address] 06-16-2025 22:27-0400 Heart rate 78 /min Dr. Moustapha Gtz MD Work Phone: 3(100)186-571417 [place] [address] 06-16-2025 22:27-0400 Respiratory rate 16 /min Dr. Moustapha Gtz MD Work Phone: 1(181)529-246617 [place] [address] 06-16-2025 22:27-0400 SaO2% (BldA) [Mass fraction] 100 % Dr. Moustapha Gtz MD Work Phone: 6(540)185-447317 [place] [address] 06-16-2025 22:27-0400 Systolic blood pressure 107 mm[Hg] Dr. Moustapha Gtz MD Work Phone: 1(867)594-826617 [place] [address] 06-16-2025 21:34-0400 Body height 162.[address] Moustapha Gtz MD Work Phone: 4(266)838-746117 [place] [address] 06-16-2025 21:34-0400 Body mass index (BMI) [Ratio] 19.5 kg/m2 Dr. Moustapha Gtz MD Work Phone: 5(759)775-438717 [place] [address] 06-16-2025 21:34-0400 Body weight 51.[address] Moustapha Gtz MD Work Phone: 3(115)449-515717 [place] [address] 04-18-2025 11:03-0400 Body temperature 97.9 [degF] Dr. Moustapha Gtz MD Work Phone: 3(142)519-076217 [place] [address] 04-18-2025 11:03-0400 Diastolic blood pressure 62 mm[Hg] Dr. Moustapha Gtz MD Work Phone: 6(660)498-483017 [place] [address] 04-18-2025 11:03-0400 Heart rate 75 /min Dr. Moustapha Gtz MD Work Phone: 6(961)946-973917 [place] [address] 04-18-2025 11:03-0400 Respiratory rate 17 /min Dr. Moustapha Gtz MD Work Phone: 0(453)194-135717 [place] [address] 04-18-2025 11:03-0400 SaO2% (BldA) [Mass fraction] 100 % Dr. Moustapha Gtz MD Work Phone: 6(043)380-065717 [place] [address] 04-18-2025 11:03-0400 Systolic blood pressure 103 mm[Hg] Dr. Moustapha Gtz MD Work Phone: 9(608)250-120717 [place] [address] 04-18-2025 10:02-0400 Body height 167.[address] Moustapha Gtz MD Work Phone: 9(646)790-872917 [place] [address] 04-18-2025 10:02-0400 Body mass index (BMI) [Ratio] 17.7 kg/m2 Dr. Moustapha Gtz MD Work Phone: 2(647)065-923917 [place] [address] 04-18-2025 10:02-0400 Body weight 49.[address] Moustapha Gtz MD Work Phone: 5(092)205-087717 [place] [address] 03-16-2025 22:53-0400 Body temperature 98.7 [degF] Dr. Moustapha Gtz MD Work Phone: 6(005)042-741917 [place] [address] 03-16-2025 22:53-0400 Diastolic blood pressure 67 mm[Hg] Dr. Moustapha Gtz MD Work Phone: 8(789)349-850517 [place] [address] 03-16-2025 22:53-0400 Heart rate 77 /min Dr. Moustapha Gtz MD Work Phone: 2(016)952-943617 [place] [address] 03-16-2025 22:53-0400 Respiratory rate 16 /min Dr. Moustapha Gtz MD Work Phone: 6(963)217-525817 [place] [address] 03-16-2025 22:53-0400 SaO2% (BldA) [Mass fraction] 100 % Dr. Moustapha Gtz MD Work Phone: 7(017)654-661517 [place] [address] 03-16-2025 22:53-0400 Systolic blood pressure 116 mm[Hg] Dr. Moustapha Gtz MD Work Phone: 2(652)595-066517 [place] [address] 03-16-2025 21:52-0400 Body height 167.[address] Moustapha Gtz MD Work Phone: 8(391)100-905817 [place] [address] 03-16-2025 21:52-0400 Body mass index (BMI) [Ratio] 17 kg/m2 Dr. Moustapha Gtz MD Work Phone: 5(374)439-252617 [place] [address] 03-16-2025 21:52-0400 Body weight 47.[address] Moustapha Gtz MD Work Phone: 4(634)744-503517 [place] [address] 01-11-2025 17:26-0400 Body height 167.[address] Moustapha Gtz MD Work Phone: 9(429)368-251817 [place] [address] 01-11-2025 17:26-0400 Body mass index (BMI) [Ratio] 17.1 kg/m2 Dr. Moustapha Gtz MD Work Phone: 2(271)129-607817 [place] [address] 01-11-2025 17:26-0400 Body temperature 97 [degF] Dr. Moustapha Gtz MD Work Phone: 0(063)698-337217 [place] [address] 01-11-2025 17:26-0400 Body weight 48.[address] Moustapha Gtz MD Work Phone: 6(766)438-405717 [place] [address] 01-11-2025 17:26-0400 Diastolic blood pressure 73 mm[Hg] Dr. Moustapha Gtz MD Work Phone: 1(057)025-673017 [place] [address] 01-11-2025 17:26-0400 Heart rate 83 /min Dr. Moustapha Gtz MD Work Phone: 8(089)422-730817 [place] [address] 01-11-2025 17:26-0400 Respiratory rate 18 /min Dr. Moustapha Gtz MD Work Phone: 6(831)027-645117 [place] [address] 01-11-2025 17:26-0400 SaO2% (BldA) [Mass fraction] 100 % Dr. Moustapha Gtz MD Work Phone: 8(716)083-088417 [place] [address] 01-11-2025 17:26-0400 Systolic blood pressure 127 mm[Hg] Dr. Moustapha Gtz MD Work Phone: 1(405)843-378717 [place] [address] 11-05-2024 18:01-0500 Diastolic blood pressure 89 mm[Hg] Dr. Moustapha Gtz MD Work Phone: 5(159)069-734650 [place] [address] 11-05-2024 18:01-0500 Systolic blood pressure 128 mm[Hg] Dr. Moustapha Gtz MD Work Phone: 4(966)008-521417 [place] [address] 11-05-2024 15:49-0500 Body mass index (BMI) [Ratio] 16.9 kg/m2 Dr. Moustapha Gtz MD Work Phone: 2(077)157-943917 [place] [address] 11-05-2024 15:49-0500 Body temperature 97 [degF] Dr. Moustapha Gtz MD Work Phone: 1(278)906-571117 [place] [address] 11-05-2024 15:49-0500 Body weight 47.[address] Moustapha Gtz MD Work Phone: 9(623)749-518417 [place] [address] 11-05-2024 15:49-0500 Heart rate 106 /min Dr. Moustapha Gtz MD Work Phone: 8(926)083-781650 [place] [address] 11-05-2024 15:49-0500 Respiratory rate 15 /min Dr. Moustapha Gtz MD Work Phone: 4(758)296-269017 [place] [address] 11-05-2024 15:49-0500 SaO2% (BldA) [Mass fraction] 97 % Dr. Moustapha Gtz MD Work Phone: [facility] 07-23-2024 10:02-0400 Body mass index (BMI) [Ratio] 18.38 kg/m2 Genevieve Wade APRN.HOSPITAL PHARMACIST Work Phone: [facility] 07-23-2024 10:02-0400 Body temperature 98.6 [degF] Genevieve Wade APRN.HOSPITAL PHARMACIST Work Phone: [facility] 07-23-2024 10:02-0400 Body weight 50.4 kg Genevieve Wade APRN.HOSPITAL PHARMACIST Work Phone: [facility] 07-23-2024 10:02-0400 Diastolic blood pressure 75 mm[Hg] Genevieve Mauro [employer].HOSPITAL PHARMACIST Work Phone: [facility] 07-23-2024 10:02-0400 Heart rate 92 /min Genevieve Wade [employer].HOSPITAL PHARMACIST Work Phone: [facility] 07-23-2024 10:02-0400 Respiratory rate 18 /min Genevieve Wade [employer].HOSPITAL PHARMACIST Work Phone: [facility] 07-23-2024 10:02-0400 SaO2% (BldA) [Mass fraction] 100 % Genevieve Wade [employer].HOSPITAL PHARMACIST Work Phone: [facility] 07-23-2024 10:02-0400 Systolic blood pressure 112 mm[Hg] Genevieve Wade [employer].HOSPITAL PHARMACIST Work Phone: [facility] 06-26-2024 12:03-0400 Body height 165.6 cm Daryn Gtz MD Work Phone: [facility] 06-26-2024 12:03-0400 Body mass index (BMI) [Ratio] 19.09 kg/m2 Daryn Gtz MD Work Phone: [facility] 06-26-2024 12:03-0400 Body weight 52.34 kg Daryn Gtz MD Work Phone: [facility] 06-26-2024 12:03-0400 Diastolic blood pressure 66 mm[Hg] Daryn Gtz MD Work Phone: [facility] 06-26-2024 12:03-0400 Heart rate 87 /min Daryn Gtz MD Work Phone: [facility] 06-26-2024 12:03-0400 Respiratory rate 16 /min Daryn Gtz MD Work Phone: [facility] 06-26-2024 12:03-0400 SaO2% (BldA) [Mass fraction] 99 % Daryn Gtz MD Work Phone: [facility] 06-26-2024 12:03-0400 Systolic blood pressure 116 mm[Hg] Daryn Gtz MD Work Phone: [facility] 05-11-2024 10:56-0400 Body temperature 97.59 [degF] Daryn Gtz MD Work Phone: [facility] 05-11-2024 10:56-0400 Body weight 52.6 kg Daryn Gtz MD Work Phone: [facility] 05-11-2024 10:56-0400 Diastolic blood pressure 64 mm[Hg] Daryn Gtz MD Work Phone: [facility] 05-11-2024 10:56-0400 Heart rate 131 /min Daryn Gtz MD Work Phone: [facility] Comment on above: 132 manual 05-11-2024 10:56-0400 Respiratory rate 16 /min Daryn Gtz MD Work Phone: [facility] 05-11-2024 10:56-0400 SaO2% (BldA) [Mass fraction] 97 % Daryn Gtz MD Work Phone: [facility] 05-11-2024 10:56-0400 Systolic blood pressure 130 mm[Hg] Daryn Gtz MD Work Phone: [facility] 01-15-2024 11:57-0400 Body temperature 98.4 [degF] Kevin Stewart [employer].HOSPITAL PHARMACIST Work Phone: [facility] 01-15-2024 11:57-0400 Body weight 48.4 kg Kevin Stewart [employer].HOSPITAL PHARMACIST Work Phone: [facility] 01-15-2024 11:57-0400 Diastolic blood pressure 72 mm[Hg] Kevin Pendlemiracle [employer].HOSPITAL PHARMACIST Work Phone: [facility] 01-15-2024 11:57-0400 Heart rate 89 /min Kevin Terry [employer].HOSPITAL PHARMACIST Work Phone: [facility] 01-15-2024 11:57-0400 Respiratory rate 18 /min Kevin Pendlemiracle [employer].HOSPITAL PHARMACIST Work Phone: [facility] 01-15-2024 11:57-0400 SaO2% (BldA) [Mass fraction] 100 % Kevin Stewart [employer].HOSPITAL PHARMACIST Work Phone: [facility] 01-15-2024 11:57-0400 Systolic blood pressure 122 mm[Hg] Kevin Stewart [employer].HOSPITAL PHARMACIST Work Phone: [facility] 01-10-2024 22:00-0400 Body temperature 97 [degF] [facility] 01-10-2024 22:00-0400 Diastolic blood pressure 78 mm[Hg] [facility] 01-10-2024 22:00-0400 Heart rate 78 /min [facility] 01-10-2024 22:00-0400 Respiratory rate 16 /min [facility] 01-10-2024 22:00-0400 SaO2% (BldA) [Mass fraction] 100 % [facility] 01-10-2024 22:00-0400 Systolic blood pressure 119 mm[Hg] [facility] 01-10-2024 19:51-0400 Body height 167.64 cm [facility] 01-10-2024 19:51-0400 Body mass index (BMI) [Ratio] 16.2 kg/m2 [facility] 01-10-2024 19:51-0400 Body weight 45.81 kg [facility] 09-06-2023 19:48-0500 Diastolic blood pressure 53 mm[Hg] [facility] 09-06-2023 19:48-0500 Heart rate 100 /min [facility] 09-06-2023 19:48-0500 Respiratory rate 20 /min [facility] 09-06-2023 19:48-0500 SaO2% (BldA) [Mass fraction] 98 % [facility] 09-06-2023 19:48-0500 Systolic blood pressure 94 mm[Hg] [facility] 09-06-2023 17:55-0500 Body temperature 98.2 [degF] [facility] 09-06-2023 14:52-0500 Body height 167.64 cm [facility] 09-06-2023 14:52-0500 Body mass index (BMI) [Ratio] 16 kg/m2 [facility] 09-06-2023 14:52-0500 Body weight 44.99 kg [facility] 08-14-2023 17:46-0500 Body height 167.64 cm [facility] 08-14-2023 17:46-0500 Body mass index (BMI) [Ratio] 16.1 kg/m2 [facility] 08-14-2023 17:46-0500 Body temperature 97.2 [degF] [facility] 08-14-2023 17:46-0500 Body weight 45.38 kg [facility] 08-14-2023 17:46-0500 Diastolic blood pressure 78 mm[Hg] [facility] 08-14-2023 17:46-0500 Heart rate 87 /min [facility] 08-14-2023 17:46-0500 Respiratory rate 16 /min [facility] 08-14-2023 17:46-0500 SaO2% (BldA) [Mass fraction] 100 % [facility] 08-14-2023 17:46-0500 Systolic blood pressure 137 mm[Hg] [facility] 07-02-2023 17:40-0400 Body temperature 97.39 [degF] [facility] [employer].HOSPITAL PHARMACIST Work Phone: [facility] 07-02-2023 17:40-0400 Body weight 45.81 kg [facility] [employer].HOSPITAL PHARMACIST Work Phone: [facility] 07-02-2023 17:40-0400 Diastolic blood pressure 78 mm[Hg] [facility] [employer].HOSPITAL PHARMACIST Work Phone: [facility] 07-02-2023 17:40-0400 Heart rate 104 /min [facility] [employer].HOSPITAL PHARMACIST Work Phone: [facility] 07-02-2023 17:40-0400 Respiratory rate 18 /min [facility] [employer].HOSPITAL PHARMACIST Work Phone: [facility] 07-02-2023 17:40-0400 SaO2% (BldA) [Mass fraction] 100 % [facility] [employer].HOSPITAL PHARMACIST Work Phone: [facility] 07-02-2023 17:40-0400 Systolic blood pressure 118 mm[Hg] [facility] [employer].HOSPITAL PHARMACIST Work Phone: [facility] 05-30-2023 13:00-0400 Respiratory rate 18 /min [facility] 05-30-2023 12:07-0400 SaO2% (BldA) [Mass fraction] 99 % [facility] 05-30-2023 10:46-0400 Body mass index (BMI) [Ratio] 16.1 kg/m2 [facility] 05-30-2023 10:46-0400 Body temperature 97.3 [degF] [facility] 05-30-2023 10:46-0400 Body weight 45.4 kg [facility] 05-30-2023 10:46-0400 Diastolic blood pressure 78 mm[Hg] [facility] 05-30-2023 10:46-0400 Heart rate 67 /min [facility] 05-30-2023 10:46-0400 Systolic blood pressure 133 mm[Hg] [facility] 12-10-2022 14:43-0500 Body temperature 98.91 [degF] [facility] [employer].HOSPITAL PHARMACIST Work Phone: [facility] 12-10-2022 14:43-0500 Body weight 48.08 kg [facility] [employer].HOSPITAL PHARMACIST Work Phone: [facility] 12-10-2022 14:43-0500 Diastolic blood pressure 60 mm[Hg] [facility] [employer].HOSPITAL PHARMACIST Work Phone: [facility] 12-10-2022 14:43-0500 Heart rate 85 /min Kevin Pendbreanne [employer].HOSPITAL PHARMACIST Work Phone: [facility] 12-10-2022 14:43-0500 Respiratory rate 16 /min [facility] [employer].HOSPITAL PHARMACIST Work Phone: [facility] 12-10-2022 14:43-0500 SaO2% (BldA) [Mass fraction] 98 % Kevin Chloebury [employer].HOSPITAL PHARMACIST Work Phone: [facility] 12-10-2022 14:43-0500 Systolic blood pressure 112 mm[Hg] Kevin Pendlebury [employer].HOSPITAL PHARMACIST Work Phone: [facility] 11-12-2022 08:52-0500 Body temperature 98.91 [degF] Melba Praisler-[facility] [employer].HOSPITAL PHARMACIST Work Phone: [facility] 11-12-2022 08:52-0500 Body weight 48.17 kg Melba Praisler-[facility] [employer].HOSPITAL PHARMACIST Work Phone: [facility] 11-12-2022 08:52-0500 Diastolic blood pressure 60 mm[Hg] Melba Praisler-Wood [employer].HOSPITAL PHARMACIST Work Phone: [facility] 11-12-2022 08:52-0500 Heart rate 118 /min Melba Praisler-Wood [employer].HOSPITAL PHARMACIST Work Phone: [facility] 11-12-2022 08:52-0500 Respiratory rate 18 /min Melba Praisler-Wood [employer].HOSPITAL PHARMACIST Work Phone: [facility] 11-12-2022 08:52-0500 SaO2% (BldA) [Mass fraction] 97 % Melba Praisler-Wood [employer].HOSPITAL PHARMACIST Work Phone: [facility] 11-12-2022 08:52-0500 Systolic blood pressure 110 mm[Hg] Melba Praisler-Wood [employer]HOSPITAL PHARMACIST Work Phone: [facility] 10-15-2022 17:51-0500 Body temperature 98.71 [degF] Skye Athy PA-C Work Phone: [facility] 10-15-2022 17:51-0500 Body weight 49.62 kg Skye Athy PA-C Work Phone: [facility] 10-15-2022 17:51-0500 Diastolic blood pressure 62 mm[Hg] Skye Athy PA-C Work Phone: [facility] 10-15-2022 17:51-0500 Heart rate 68 /min Skye Athy PA-C Work Phone: [facility] 10-15-2022 17:51-0500 Respiratory rate 16 /min Skye Athy PA-C Work Phone: [facility] 10-15-2022 17:51-0500 SaO2% (BldA) [Mass fraction] 99 % Skye Athy PA-C Work Phone: [facility] 10-15-2022 17:51-0500 Systolic blood pressure 114 mm[Hg] Skye Athy PA-C Work Phone: [facility] 06-05-2022 16:00-0400 Body temperature 98.01 [degF] Rach Alireza [employer].HOSPITAL PHARMACIST Work Phone: [facility] 06-05-2022 16:00-0400 Body weight 49.26 kg Rach Alireza [employer].HOSPITAL PHARMACIST Work Phone: [facility] 06-05-2022 16:00-0400 Diastolic blood pressure 78 mm[Hg] Rach Alireza [employer].HOSPITAL PHARMACIST Work Phone: [facility] 06-05-2022 16:00-0400 Heart rate 98 /min Rach Alireza [employer].HOSPITAL PHARMACIST Work Phone: [facility] 06-05-2022 16:00-0400 Respiratory rate 16 /min Rach Alireza [employer].HOSPITAL PHARMACIST Work Phone: [facility] 06-05-2022 16:00-0400 SaO2% (BldA) [Mass fraction] 99 % Rach Alireza [employer].HOSPITAL PHARMACIST Work Phone: [facility] 06-05-2022 16:00-0400 Systolic blood pressure 118 mm[Hg] Rach Alireza [employer].HOSPITAL PHARMACIST Work Phone: [facility] Encounters Encounter Date Encounter Type Care Provider Facility Start: 06-21-2025 End: 06-21-2025 ambulatory LIVIER FRENCH Facility:[facility] Start: 06-21-2025 Encounter for genera l adult medical examination without abnormal findings LIVIER JIM [facility] Start: 06-16-2025 End: 06-16-2025 Emergency department patient [...] Start: 07-23-2024 End: 07-23-2024 ambulatory DARYN GTZ Facility:[facility] Start: 07-23-2024 End: 07-23-2024 Patient encounter procedure Genevieve Wade APRN.CNP Work Phone: [facility] Comment on above: Lower resp. tract in fection (Primary Dx) Start: 07-20-2024 End: 07-20-2024 Emergency department patient visit Moustapha Gtz Facility:[facility] Start: 06-28-2024 End: 06-28-2024 Emergency department patient visit Moustapha Gtz Facility:[facility] Start: 06-27-2024 End: 07-04-2024 Telephone encounter Daryn Gtz MD Work Phone: [facility] [place] Comment on above: Results Start: 06-26-2024 End: 06-26-2024 ambulatory DARYN GTZ Facility:[facility] Start: 06-26-2024 End: 06-26-2024 Patient encounter procedure Daryn Gtz MD Work Phone: [facility] Comment on above: Encounter for medica l examination to establish care (Primary Dx); TERI (generalized anxiety disorder); Bipolar affective disorder, current episode mixed, current episode severity unspecified (HCC); Intermittent asthma without complication, unspecified asthma severity; Tobacco use Start: 06-26-2024 End: 06-26-2024 Patient encounter status Daryn Gtz MD Work Phone: [facility] Work Phone: Start: 06-26-2024 End: 06-26-2024 ambulatory DARYN GTZ Facility:[facility] Start: 06-26-2024 Encounter for genera l adult medical examination without abnormal findings DARYN GTZ [facility] Start: 05-11-2024 End: 05-11-2024 Patient encounter procedure Daryn Gtz MD Work Phone: [facility] Comment on above: Headache, unspecifie d headache type (Primary Dx); Injury of head, subsequent encounter; Tachycardia; Right atrial enlargement; Tobacco use; Black hairy tongue Start: 01-15-2024 End: 01-15-2024 Office outpatient visit 25 minutes Kevin Stewart [employer].HOSPITAL PHARMACIST Work Phone: [facility] Comment on above: Moderate persistent asthma with (acute) exacerbation (Primary Dx) Start: 01-10-2024 End: 01-10-2024 Emergency department patient visit [facility] Work Phone: Start: 09-06-2023 End: 09-06-2023 Emergency department patient visit [facility] Work Phone: Start: 08-14-2023 End: 08-14-2023 Emergency department patient visit [facility] Work Phone: Start: 07-02-2023 End: 07-02-2023 Office outpatient visit 15 minutes Kevin Stewart [employer].HOSPITAL PHARMACIST Work Phone: [facility] Comment on above: Pharyngitis, unspeci fied etiology (Primary Dx); Viral illness Start: 05-30-2023 End: 05-30-2023 Emergency department patient visit [facility] Work Phone: Start: 12-10-2022 End: 12-10-2022 Patient encounter procedure Kevin Stewart APRN.HOSPITAL PHARMACIST Work Phone: [facility] Comment on above: Loose stools (Primar y Dx) Start: 11-12-2022 End: 11-12-2022 Patient encounter procedure Melba Jones [employer].HOSPITAL PHARMACIST Work Phone: [facility] Comment on above: Acute otitis externa of left ear, unspecified type (Primary Dx) Start: 10-15-2022 End: 10-15-2022 Patient encounter procedure Skye Maradiaga PA-C Work Phone: [facility] Comment on above: Diarrhea, unspecifie d type (Primary Dx) Start: 06-05-2022 End: 06-05-2022 Patient encounter procedure Rach Lay [employer].HOSPITAL PHARMACIST Work Phone: [facility] Comment on above: Acute cough (Primary Dx); Nasal congestion; Wheezing; Suspected COVID-19 virus infection Start: 03-18-2021 End: 03-18-2021 Subsequent hospital visit by physician Xr [facility] Work Phone: Radiology Comment on above: Rhonchi [R09.89] Procedures Date Procedure Procedure Detail Performing Clinician Start: 05-11-2024 Ecg routine ecg w/le ast 12 lds i&r only [facility] Provider Start: 09-06-2023 Plain chest X-ray Start: 09-06-2023 SARS-CoV-2 & FLU Ant igen (Rapid) Start: 07-02-2023 STREP A MOLECULAR (POC) Kevin Stewart [employer].HOSPITAL PHARMACIST Work Phone: Start: 05-30-2023 Plain chest X-ray Start: 03-18-2021 Radiologic exam ches t 2 views Genevieve Wade [employer].HOSPITAL PHARMACIST Work Phone: Plan of Treatment Date Care Activity Detail Author Start: 06-26-2025 Annual PCP Team [employer] donte Disease Visit Annual PCP Team Chronic Disease Visit [facility] Start: 06-26-2025 Covid-19 Vaccine ( season) Covid-19 Vaccine ( season) [facility] Comment on above: Postponed from 06/04 (Declined at this time) Start: 06-26-2025 Hepatitis C screening Hepatitis C Sc allegraning [facility] Comment on above: Postponed from 06/18 (Declined at this time) Start: 06-26-2025 HIV screening HIV Screening [facility] Comment on above: Postponed from 06/18 (Declined at this time) Start: 06-26-2025 Pneumococcal vaccination Pneum ococcal Vaccine (1 of 2 - PCV) [facility] Comment on above: Postponed from 06/18 (Declined at this time) Start: 06-26-2025 Urine microalbumin profile DTaP,Tdap,Td Vaccine (7 - Td or Tdap) [facility] Comment on above: Postponed from 09/14 (Declined at this time) Start: 05-11-2025 Annual PCP Team [employer] donte Disease Visit Annual PCP Team Chronic Disease Visit [facility] Start: 04-18-2025 [facility] Start: 04-02-2025 Influenza vaccination Influenza Vacc ine (#1) [facility] Comment on above: Postponed from 06/04 (Declined at this time) Start: 03-16-2025 [facility] Start: 01-11-2025 [facility] Start: 12-25-2024 End: 12-25-2024 Patient encounter procedure 12/25/2024 2:40 PM EDT Office Visit [facility] [place] [address] [place], [place] [id number] PodlogDenise bridges APRN.HOSPITAL PHARMACIST [address] [place] [address] 6 month follow up [facility] Comment on above: 6 month follow up Start: 11-05-2024 [facility] Start: 09-26-2024 End: 12-26-2024 25-hydroxyvitamin D3 [Mass/volume] in Serum or Plasma VITAMIN D 25 HYDROXY Lab Routine Vitamin D deficiency Expected: 09/26/2024, Expires: 12/26/2024 [facility] Work Phone: Comment on above: Expected: 09/26/2024 , Expires: 12/26/2024 Start: 07-31-2024 End: 07-31-2024 ambulatory 07/31/2024 1:30 PM EDT Procedure [facility] [address] [place] [address] Wstr, Pulm Lab [facility] [address] [place] [address] ASTHMA PULM LAB [facility] Comment on above: ASTHMA Start: 07-31-2024 End: 07-31-2024 Patient encounter procedure 07/31/2024 12:20 PM EDT Office Visit [facility] [place] [address] [place] [address] Daryn Gtz MD [address] [place] [address] express care follow-up [facility] [place] Comment on above: express care follow- up Start: 06-28-2024 End: 06-28-2024 ambulatory 06/28/2024 1:45 PM EDT Procedure [facility] [address] [place] [address] Wstr, Pulm Lab [facility] [address] [place] [address] Intermittent asthma without complication, unspecified asthma severity [J45.20] PULM LAB [facility] Comment on above: Intermittent asthma without complication, unspecified asthma severity [J45.20] Start: 06-26-2024 End: 09-25-2024 25-hydroxyvitamin D3 [Mass/volume] in Serum or Plasma [facility] Comment on above: Expected: 06/26/2024 , Expires: 09/25/2024 Start: 06-26-2024 End: 09-25-2024 Cobalamin (Vitamin B12) [Mass/volume] in Serum or Plasma [facility] Comment on above: Expected: 06/26/2024 , Expires: 09/25/2024 Start: 06-26-2024 End: 09-25-2024 Comprehensive metabolic 2000 panel - Serum or Plasma [facility] Comment on above: Expected: 06/26/2024 , Expires: 09/25/2024 Start: 06-26-2024 End: 09-25-2024 LIPID PANEL, NONFASTING [facility] Comment on above: Expected: 06/26/2024 , Expires: 09/25/2024 Start: 06-26-2024 End: 09-25-2024 Thyrotropin [Units/volume] in Serum or Plasma [facility] Comment on above: Expected: 06/26/2024 , Expires: 09/25/2024 Start: 06-26-2024 End: 06-26-2024 Patient encounter procedure 06/26/2024 12:20 PM EDT Office Visit [facility] [place] [address] [place] [address] Daryn Gtz MD [address] [place] [address] Establish Care Visit [facility] [place] Comment on above: Establish Care Visit Start: 06-04-2024 Influenza vaccination C [facility] Start: 01-10-2024 [facility] Start: 10-04-2023 Behavioral Health Screening Behavioral Health Screening [facility] Start: 09-06-2023 [facility] Start: 08-14-2023 [facility] Start: 07-02-2023 End: 07-16-2023 Influenza virus A and B RNA and SARS-CoV-2 (COVID-19) N gene panel - Respiratory specimen by REI with probe detection [facility] Work Phone: Comment on above: Expected: 07/02/2023 , Expires: 07/16/2023 Start: 06-04-2023 Covid-19 Vaccine () Covid-19 Vaccine () [facility] Start: 06-04-2023 Influenza vaccination Influenza Vacc ine (#1) [facility] Start: 05-30-2023 [facility] Start: 10-15-2022 End: 10-29-2022 Influenza virus A and B RNA and SARS-CoV-2 (COVID-19) N gene panel - Respiratory specimen by REI with probe detection COVID WITH FLUA+B, ROUTINE Microbiology Routine Diarrhea, unspecified type Expected: 10/15/2022, Expires: 10/29/2022 [facility] Work Phone: Comment on above: Expected: 10/15/2022 , Expires: 10/29/2022 Start: 10-04-2022 DEPRESSION ASSESSMENT DEPRESSION ASS ESSMENT [facility] Start: 09-14-2022 Urine microalbumin profile DTaP,Tdap,Td Vaccine (7 - Td or Tdap) [facility] Start: 06-05-2022 End: 06-19-2022 SARS-CoV-2 (COVID-19) RNA [Presence] in Respiratory specimen by REI with probe detection 2019 CORONAVIRUS Microbiology Routine Acute cough Nasal congestion Suspected COVID-19 virus infection Expected: 06/05/2022, Expires: 06/19/2022 [facility] Work Phone: Comment on above: Expected: 06/05/2022 , Expires: 06/19/2022 Start: 06-04-2022 Influenza vaccination INFLUENZA (#1) [facility] Start: 04-30-2021 Urine microalbumin profile [facility] Start: 2013 ANNUAL PCP TEAM WARD MAID DONET DISEASE VISIT ANNUAL PCP TEAM CHRONIC DISEASE VISIT [facility] Start: 2013 Anxiety Screening Anxiety Screening [facility] Start: 2013 Depression Screening Depression Scre ening [facility] Start: 2013 HEPATITIS C SCREENING HEPATITIS C [facility] Start: 2013 Hepatitis C screening Hepatitis C [facility] Start: 2013 HIV SCREENING HIV SCREENING [facility] Start: 2013 HIV screening HIV Screening [facility] Start: 2013 SPIROMETRY SPIROMETRY [facility] Start: 2009 PEDS TO ADULT TRANSI TION ANNUAL ASSESSMENT PEDS TO ADULT TRANSITION ANNUAL ASSESSMENT [facility] Start: 2007 Adult depression screening assessment DEPRESSION SCREENING [facility] Start: 2007 PEDS TO ADULT TRANSI TION INITIAL DISCUSSION PEDS TO ADULT TRANSITION INITIAL DISCUSSION [facility] Start: 2006 HPV VACCINE (1 - Mal e 2-dose series) HPV VACCINE (1 - Male 2-dose series) [facility] Start: 2001 PNEUMOCOCCAL (1 - PCV) PNEUMOCOCCAL (1 - PCV) [facility] Start: 2001 Pneumococcal vaccination [facility] Start: 1995 COVID-19 VACCINE (#1) COVID-19 VACCI NE (#1) [facility] ECG COMPLETE [facility] Work Phone: Comment on above: Ordered: 05/11/2024 Patient Education [facility] Work Phone: Patient referral [facility] Work Phone: End: 07-26-2025 SPIROMETRY - BASELINE AND POST DILATOR SPIROMETRY - BASELINE AND POST DILATOR PFT Routine Intermittent asthma without complication, unspecified asthma severity 1 Occurrences starting 06/26/2024 until 07/26/2025 [facility] Work Phone: Comment on above: 1 Occurrences starti ng 06/26/2024 until 07/26/2025 Immunizations Immunization Date Immunization Notes Care Provider Niya jean-baptiste 09-14-2012 influenza virus vaccine, unspecified formulation Rach Lay APRN.HOSPITAL PHARMACIST Work Phone: [facility] 09-14-2012 TD(adult) unspecifie d formulation Daryn Gtz MD Work Phone: [facility] 04-30-2011 Meningococcal, MCV4, unspecified conjugate formulation(groups A, C, Y and W-135) Rach Lay APRN.HOSPITAL PHARMACIST Work Phone: [facility] Work Phone: 04-30-2011 tetanus toxoid, reduced diphtheria toxoid, and acellular pertussis vaccine, adsorbed Rach Lay APRN.HOSPITAL PHARMACIST Work Phone: [facility] Work Phone: 01-27-2009 tetanus and diphther ia toxoids, adsorbed, preservative free, for adult use (5 Lf of tetanus toxoid and 2 Lf of diphtheria toxoid) Daryn Gtz MD Work Phone: [facility] 03-30-2001 diphtheria, tetanus toxoids and acellular pertussis vaccine Rach Alireza [employer] Work Phone: [facility] Work Phone: 03-30-2001 poliovirus vaccine, inactivated Rach Alireza [employer] Work Phone: [facility] Work Phone: 10-26-2000 diphtheria, tetanus toxoids and acellular pertussis vaccine Rach Alireza [employer] Work Phone: [facility] Work Phone: 10-26-2000 measles, mumps and rubella virus vaccine Rach Alireza [employer] Work Phone: [facility] Work Phone: 10-26-2000 poliovirus vaccine, inactivated Rach Alireza [employer] Work Phone: [facility] Work Phone: 11-23-1996 haemophilus influenz ae type b vaccine, HbOC conjugate Rach Alireza [employer].HOSPITAL PHARMACIST Work Phone: [facility] Work Phone: 11-23-1996 measles, mumps and rubella virus vaccine Rach Alireza [employer].HOSPITAL PHARMACIST Work Phone: [facility] Work Phone: 06-19-1996 varicella virus vaccine Rach Alireza [employer].HOSPITAL PHARMACIST Work Phone: [facility] Work Phone: 1995 diphtheria, tetanus toxoids and pertussis vaccine Rach Alireza [employer].HOSPITAL PHARMACIST Work Phone: [facility] Work Phone: 1995 haemophilus influenz ae type b vaccine, HbOC conjugate Rach Alireza [employer].HOSPITAL PHARMACIST Work Phone: [facility] Work Phone: 1995 hepatitis B vaccine, pediatric or pediatric/adolescent dosage Rach Alireza [employer] Work Phone: [facility] Work Phone: 1995 diphtheria, tetanus toxoids and pertussis vaccine Rach Alireza [employer].HOSPITAL PHARMACIST Work Phone: [facility] Work Phone: 1995 haemophilus influenz ae type b vaccine, HbOC conjugate Rach Alireza [employer] Work Phone: [facility] Work Phone: 1995 trivalent poliovirus vaccine, live, oral Rach Alireza [employer] Work Phone: [facility] Work Phone: 1995 diphtheria, tetanus toxoids and pertussis vaccine Rach Alireza [employer].HOSPITAL PHARMACIST Work Phone: [facility] Work Phone: 1995 haemophilus influenz ae type b vaccine, HbOC conjugate Rach Alireza [employer] Work Phone: [facility] Work Phone: 1995 trivalent poliovirus vaccine, live, oral Rach Alireza [employer] Work Phone: [facility] Work Phone: 1995 hepatitis B vaccine, pediatric or pediatric/adolescent dosage Rach Alireza [employer].HOSPITAL PHARMACIST Work Phone: [facility] Work Phone: 1995 hepatitis B vaccine, pediatric or pediatric/adolescent dosage Rach Alireza [employer] Work Phone: [facility] Work Phone: Payers Date Payer Category Payer Self-pay [id number] 2023 Unknown [employer] PPO [id number] 2023-Present [phone] [address] [place] [address] PPO [id number] 2022 Medicaid [id number] 2019 Medicaid [id number] 2016 Unknown [id number] Unknown [id number] Unknown 0 [id number] Unknown [id number] Unknown [id number] Unknown [id number] Unknown [id number] Unknown [id number] Unknown [id number] Unknown [id number] Social History Date Type Detail Facility Start: 07-12-2015 End: 04-18-2025 Tobacco smoking status TNIS Smokes tobacco daily [facility] Start: 06-26-2008 History of tobacco use Cigarette Smo ker [facility] Start: 07-12-2015 End: 05-11-2024 Cigarettes smoked current (pack per day) - Reported 0.5 [facility] Start: 07-12-2015 End: 06-26-2024 Tobacco use and exposure Smokeless tobacco non-user [facility] Start: 03-18-2021 End: 06-05-2022 Alcohol intake Not Asked [facility] Start: 1995 Sex Assigned At Not on file [facility] Start: 10-15-2022 End: 07-23-2024 Alcohol intake Lifetime non-drinker (finding) [facility] Start: 09-17-2022 Tobacco Comment mother smokes [facility] Start: 07-02-2023 End: 05-11-2024 Tobacco use panel [facility] National Score (1-10 0), lower number is lower risk Not on file [facility] Start: 08-14-2023 End: 01-10-2024 Tobacco smoking status NHIS Unknown if ever smoked [facility] Start: 10-19-2020 None [facility] Start: 10-19-2020 With Family [facility] Start: 02-22-2021 Cigarettes [facility] Start: 1995 Sex Assigned At Male W [facility] Start: 02-16-2021 End: 03-18-2021 Exposure to SARS-CoV-2 (event) Not sure [facility] Start: 01-11-2025 Sex Male (finding) [facility] Start: 06-16-2025 Tobacco smoking stat us NHIS Current Heavy tobacco smoker [facility] Mental Status Date Assessment Result Facility 06-16-2025 Cognitive function Voice/Name [facility] Work Phone: 04-18-2025 Cognitive function Voice/Name [facility] Work Phone: 09-06-2023 Cognitive function Level Of Cons ciousness Awake;Alert;Appropriate;Follow s Commands [facility] Work Phone: 05-30-2023 Cognitive function Voice/Name [facility] Work Phone: Clinical Notes 03-18-2021 to 06-21-2025 Note Date & Type Note Facility 06-21-2025 Note HNO ID: [id number] Author: LIVIER FRENCH APRN.HOSPITAL PHARMACIST Service: ? Author Type: Nurse Practitioner Type: [...] Bipolar disorder (FORMER[facility]) Black hairy tongue Depression Edentulous Headache NEGATIVE [...] labs - Coun (more content not included)... [facility] 06-16-2025 Discharge summary [facility] 06-16-2025 Discharge summary Note Date/Time June 16, 2025 10:22pm [facility] Medical Records Department [address] [place] [address] Emergency Department Summary 06/16/25 MR#: [id number] Acct: [id number] Name: REYNALDO ADDISON III Rep #:[id number] : 1995 29 From: Kendrick Page MD [...] Worsened by: Situational factors (Patient works at [employer] and it was super hectic .) Relieved [...] Prior similar symptoms: Yes Recent Illness/Hospitalization: No [facility] Medical History Anxiety Tobacco abuse Asthma [...] duration 78 ms. QT duration 344 ms. Filer is normal.) Treatment and Re-Evaluation Narrative: Patient [...] you were prescribedby your psychiatrist Print Language: Israeli Disposition Disposition: Home, Self Care What to do if you have Problems For any increased pain, shortness of breath, bleeding, nausea or vomiting, chestpain, or any unexpected problems, contact your Primary Care Provider. Call [facility] ([phone]) or report to the closest Emergency Room. Call 911 if necessary. 06/16/252221 <Electronically signed by Kendrick Page MD> Cosigner Signature (if applicable): CC: Dr. Moustapha Gtz MD ~ Signed [facility] Work Phone: 1(514) 712-982007-16-2025 Discharge summary [facility] Medical Records Department [address] [place] [address] Emergency Department Summary 04/18/25 MR#: [id number] Acct: [id number] Name: REYNALDO ADDISON III Rep #:[id number] : 1995 29 From: Kendrick Page MD [...] anxiety and depression. Patient presently works at [employer]. He is scheduled to start a new job at [employer]. He is waiting for information regarding training. [...] Care Provider] - As Needed Print Language: Israeli Disposition Disposition: Home, Self Care What to do if you have Problems For any increased pain, shortness of breath, bleeding, nausea or vomiting, chestpain, or any unexpected problems, contact your Primary Care Provider. Call [facility] ([phone]) or report tothe closest Emergency Room. Call 911 if necessary. 04/18/25 1103 Cosigner Signature (if applicable): CC: Dr. Moustapha Gtz MD ~ Signed [facility]06-13-2025 [facility] [address] [place] [address] Emergency Department Summary 03/16/25 MR#: [id number] Acct: [id number] Name: REYNALDO ADDISON III Rep #:[id number] : 1995 29 From: Chung Vallejo MD PCP: Dr. Moustapha Gtz MD Status :REG ER Location: ED HPI History of Present Illness Chief Complaint: Burn Informant: patient Narrative Narrative: Patient states he works at [employer] and he sustained a small burn to [...] not have any pain or significant discharge. [facility] Medical History Anxiety Tobacco abuse Asthma [...] of Physicians] - As Needed Print Language: Israeli Disposition Disposition: Home, Self Care What to do if you have Problems For any increased pain, shortness of breath, bleeding, nausea or vomiting, chestpain, or any unexpected problems, contact your Primary Care Provider. Call [facility] ([phone]) or report tothe closest Emergency Room. Call 911 if necessary. 03/16/250 Cosigner Signature (if applicable): CC: Dr. Moustapha Gtz MD ~ Signed [facility]06-13-2025 Discharge summary Author Chung Vallejo [facility] Note Date/Time March 16, 2025 10:4 7pm [facility] Medical Records Department [address] [place] [address] Emergency Department Summary 03/16/25 MR#: [id number] Acct: [id number] Name: REYNALDO ADDISON III Rep #:[id number] : 1995 29 From: Chung Vallejo MD PCP: Dr. Moustapha Gtz MD Status :REG ER Location: ED HPI History of Present Illness Chief Complaint: Burn Informant: patient Narrative Narrative: Patient states he works at [employer] and he sustained a small burn to [...] not have any pain or significant discharge. [facility] Medical History Anxiety Tobacco abuse Asthma [...] of Physicians] - As Needed Print Language: Israeli Disposition Disposition: Home, Self Care What to do if you have Problems For any increased pain, shortness of breath, bleeding, nausea or vomiting, chestpain, or any unexpected problems, contact your Primary Care Provider. Call [facility] ([phone]) or report to the closest Emergency Room. Call 911 if necessary. 03/16/252246 <Electronically signed by Chung Vallejo MD> Cosigner Signature (if applicable): CC: Dr. Moustapha Gtz MD ~ Signed [facility] Work Phone: [phone]) 782-316904-10-2025 Discharge summary [facility] Medical Records Department [address] [place] [address] Emergency Department Summary 01/11/25 MR#: [id number] Acct: [id number] Name: REYNALDO ADDISON III Rep #:[id number] : 1995 29 From: Charla Ruffin PCP: [...] lot (works 10 to 12-hour shifts at [employer] andit has been stressful). States he has [...] shortness of breath, nausea, vomiting or diarrhea. [facility] Medical History Anxiety Tobacco abuse Asthma [...] your symptoms or further concerns. Print Language: Israeli Disposition Disposition: Home, Self Care What to do if you have Problems For any increased pain, shortness of breath, bleeding, nausea or vomiting, chestpain, or any unexpected problems, contact your Primary Care Provider. Call [facility] ([phone]) or report tothe closest Emergency Room. Call 911 if necessary. 01/11/251912 Cosigner Signature (if applicable): CC: Dr. Moustapha Gtz MD ~ Signed [facility]04-10-2025 Discharge summary Author Charla Sepulveda [facility] Note Date/Time January 11, 2025 7:1 3pm [facility] Medical Records Department [address] [place] [address] Emergency Department Summary 01/11/25 MR#: [id number] Acct: [id number] Name: REYNALDO ADDISON III Rep #:[id number] : 1995 29 From: Charla Ruffin PCP: [...] lot (works 10 to 12-hour shifts at [employer] has been stressful). States he has appointment [...] your symptoms or further concerns. Print Language: Israeli Disposition Disposition: Home, Self Care What to do if you have Problems For any increased pain, shortness of breath, bleeding, nausea or vomiting, chestpain, or any unexpected problems, contact your Primary Care Provider. Call [facility] ([phone]) or report to the closest Emergency Room. Call 911 if necessary. 01/11/251912 <Electronically signed by Charla Sepulveda DO> Cosigner Signature (if applicable): CC: Dr. Moustapha Gtz MD ~ Signed [facility] Work Phone: [phone]) 278-448410-20-2024 NoteHNO ID: [id number] Author: GENEVIEVE WADE APRN.HOSPITAL PHARMACIST Service: ? Author Type: Nurse Practitioner Type: [...] Bipolar disorder ([facility]) Black hairy tongue Depression Edentulous Headache NEGATIVE [...] DOXYCYCLINE MONOHYDRATE 100 MG TABLET Genevieve Wade APRN.[facility]10-20-2024 History of Present illness Narrative* Genevieve Wade APRN.HOSPITAL PHARMACIST - 07/23/2024 10:06 AM EDT Subjective HPI [...] DOXYCYCLINE MONOHYDRATE 100 MG TABLET Genevieve Wade APRN.HOSPITAL PHARMACIST documented [facility] Telephone encounter Note * Telephone Encounter - Daryn Gtz MD - 07/04/2024 10:18 AM EDT Rx sent. [facility]10-01-[facility] Miscellaneous Notes* Telephone Encounter - Daryn Gtz MD - 07/04/2024 10:18 AM EDT Rx sent. * Telephone Encounter - Amira Ayala LPN - 07/04/2024 9:58 AM EDT Patient returned call and went over results, notes from Dr Gtz with understanding. Aware Vitamin D rx sent to pharmacy. Patient wants to take the supplement, asking for rx to be sent to [facility] pharmacy. Pending rx needs completed. * Telephone [...] other labs are normal. documented in this encounterMer[facility]10-01-2024 Telephone encounter Note * Telephone Encounter - Amira Ayala LPN - 07/04/2024 9:58 AM EDT Patient returned call and went over results, notes from Dr Gtz with understanding. Aware Vitamin D rx sent to pharmacy. Patient wants to take the supplement, asking for rx to be sent to [facility] pharmacy. Pending rx needs completed. [facility]09-26-2024 Telephone encounter Note* Telephone Encounter - Mariely Stein LPN - 06/29/2024 7:56 AM EDT Letter sent to patient requesting call back and to update contact information. Mariely Stein LPN [facility]09-24-2024 Telephone encounter Note* Telephone Encounter - [...] receive the providers message. Oliva Nunez RN [facility]09-24-2024 Telephone encounter Note* Telephone Encounter - [...] would prefer. His other labs are normal. [facility]09-23-2024 NoteHNO ID: [id number] Author: DARYN GTZ MD Service: ? Author Type: Physician Type: Progress Notes Filed: 06/26/2024 14:52 Note Text: Chief Complaint Patient presents with: Establish Care HPI Reynaldo Addison is a 29 year old male who presents here today for Above Complaints. Accompanied today by mother. 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 We discussed possible tension headache at last OV on 05/11 and patient returned to [facility] ER on 05/13 for same complaint [...] home, get along with people -- -- TEIR-2 Total Score 1 1 TERI-7 Total Score [...] No current facility-administered medicat (more content not included)...[facility]09-[facility] History of Present illness Narrative* Daryn Gtz MD - 06/26/2024 12:19 PM EDT Chief Complaint Patient presents with: Establish Care HPI Reynaldo Addison is a 29 year old male who presents here today for Above Complaints. Accompanied today by mother. 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 We discussed possible tension headache at last OV on 05/11 and patient returned to [facility] ER on 05/13 forsame complaint with [...] tobacco. Daryn Gtz MD documented in this encounterMer[facility]08-08-2024 History of Present illness Narrative* Daryn Gtz MD - 05/11/2024 11:04 AM EDT Chief Complaint Patient presents with: ER F/U: Post concussion- looking for 2nd opinion HPI Reynaldo Addison is a 28 year old male who presents here today for new limited ER follow up. Accompanied today by his mother Lakeshia. Patient evaluated at [facility] ED on 05/06, 05/08, 05/09, and [...] parietal headache and now [facility] did not indicate imaging. [...] does have an appointment with neurology in [place] in 5 days. Past medical history, appointments, [...] which included preparing to see the patient, bbrt-jd-[id number] patient care, completing clinical documentation, obtaining and/or reviewing separately obtained history, performing a medically appropriate examination, counseling and educating the pat ient/family/caregiver, ordering medications, tests, or procedures, independently interpreting results (not separately reported), and communicating results to the patient/family/caregiver. Daryn Gtz MD documented in this encounterMer[facility]04-13-2024 History of Present illness Narrative* Kevin Stewart, SANTINO.HOSPITAL PHARMACIST - 01/15/2024 12:04 PM EDT Subjective HPI [...] of care. This note was generated using [employer] software. It may contain errors in wording, punctuation, or spelling. Kevin Stewart APRN.HOSPITAL PHARMACIST documented in this encounterMercy [facility]12-04-2023 Discharge summary Author Deng Palmer [facility] September 06, 2023 7:20pm Note Date/Time September 06, 2023 4 :18pm [facility] Medical Records Department [address] [place] [address] Emergency Department Summary 09/06/23 MR#: [id number] Acct: [id number] Name: REYNALDO ADDISON III Rep #:[id number] : 1995 28 From: Deng Palmer MD PCP: Care Physician,No Primary Status :[facility] ER Location: ED HPI History [...] that he is able to eat fine. [facility] Medical History (Updated 09/06/23 @ 18:09 [...] 81.9 H Lymph % (Auto) 5.4 L Wright % (Auto) 11.9 H Eos % (Auto) [...] changes. No sign of infarct or ischemia. NM interval, QRS duration and QTc are normal [...] Referrals: Melyssa Garner MD [Med Staff - [place] [employer]] - 3-5 Days if not improving Care Physician,No Primary [Primary Care Provider] - Disposition Disposition: Home, Self Care What to do if you have Problems For any increased pain, shortness of breath, bleeding, nausea or vomiting, chestpain, or any unexpected problems, contact your Primary Care Provider. Call [facility] ([phone]) or report to the closest Emergency Room. Call 911 if necessary. 09/06/231919 <Electronically signed by Deng Palmer MD> Cosigner Signature (if applicable): CC: No Primary Care Physician ~ Signed [facility] Work Phone: 1(333) 393-408911-11-2023 Discharge summary Author Deng Palmer [facility] August 14, 2023 6:56pm Note Date/Time August 14, 2023 6:55pm [facility] Medical Records Department [address] [place] [address] Emergency Department Summary 08/14/23 MR#: [id number] Acct: [id number] Name: REYNALDO ADDISON III Rep #:[id number] : 1995 28 From: Deng Palmer MD [...] just does not want tolose the job. [facility] Medical History (Updated 08/14/23 @ 18:55 [...] your Primary Care Provider. Call [facility] ([phone]) or report to the closest Emergency Room. Call 911 if necessary. 08/14/231855 <Electronically signed by Deng Palmer MD> Cosigner Signature (if applicable): CC: Dr. Kevin Carcamo MD ~ Signed [facility] Work Phone: [phone]) 306-365909-29-2023 Instructions* Patient Instructions* Kevin Stewart APRN.HOSPITAL PHARMACIST - 07/02/2023 5:58 PM EDT How to [...] or concerning to you. documented in this encounterMercy [facility]09-29-2023 History of Present illness Narrative* Kevin Stewart APRN.CNP - 07/02/2023 5:45 PM EDT Subjective HPI Nontoxic-appearing male presents urgent care chief complaint flulike symptoms. Duration of symptoms3 days. Associated symptoms with today's chief complaint are on and off headache, muscle aches, fatigue, nonproductive cough, and fever. Patient stated symptoms started abruptly. Patient states they have used eoet-bht-kcnljab medication with some success. Patient states they [...] on movement. Nose: Congestion present. Mouth/Throat: Lips: [place]. Mouth: Mucous membranes are moist. Dentition: Abnormal [...] of care. This note was generated using [employer] software. It may contain errors in wording, punctuation, or spelling. Kevin Stewart APRN.HANDY documented in this encounterMercy [facility]03-09-2023 History of Present illness Narrative* Kevin [...] care. Kevin Stewart APRN.HANDY documented in this encounterMercy Health [facility]02-09-2023 Instructions* Patient Instructions* Alixsam Perez - 11/12/2022 [...] resolved Alix Perez APRN-student documented in this encounterMercy Health [facility]02-09-2023 History of Present illness Narrative* Alix Perez - 11/12/2022 9:17 AM EST Subjective HPI ROS Objective Physical Exam * Melba Jones APRN.HOSPITAL PHARMACIST - 11/12/2022 9:16 AM EST Images from the original note were not included. This note was created using [employer]. Subjective Reynaldo Addison is a 27 year [...] injected, scarred, perforated or erythematous. Mouth/Throat: Lips: [place]. Mouth: Mucous membranes are moist. Dentition: Abnormal [...] until resolved Alix Perez APRN-student TEACHING PROVIDER (Physician/PA/[employer]) NOTE OF PERSONAL INVOLVEMENT IN CARE: I have personally seen and examined the patient and performed the medical decision-making components. I have reviewed the Advanced Practice Registered Nurse ([employer]) Student's documentation and verified the findings in the note as written. Any additions or changes are noted in bold/italics. Signature: Melba Jones Date: 11/12/2022 Time: 9:51 AM documented in this encounterMercy Health Cl[facility]01-12-2023 History of Present illness Narrative* Skye Maradiaga PA-C - 10/15/2022 6:12 PM EST This note was created using [employer]. Subjective Reynaldo Addison is a 27 year [...] Denies cough or congestion. 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 documented in this encounterMercy Health [facility]09-02-2022 History of Present illness Narrative* Rach Lay APRN.CNP - 06/05/2022 4:17 PM EDT Subjective The history is provided by the patient. No dry cleaner hand was used. DION Addison is a 26 [...] have confirmed and edited as necessary, the [place] Review of Systems Constitutional: Negative for chills, [...] evaluation. Rach Lay APRN.CNP documented in this encounterMercy Health [facility]06-15-2021 History of Present illness Narrative* Chula [...] 18, 2021 5:44 PM documented in this encounterMercy Health Clermont HospitalDischarge summary Author Kendrick Page [facility] Note Date/Time April 18, 2025 11:0 3am [facility] Medical Records Department [address] [place] [address] Emergency Department Summary 04/18/25 MR#: [id number] Acct: [id number] Name: REYNALDO ADDISON III Rep #:[id number] : 1995 29 From: Kendrick Page MD [...] anxiety and depression. Patient presently works at [employer]. He is scheduled to start a new job at [employer]. He is waiting for information regarding training. [...] Care Provider] - As Needed Print Language: Israeli Disposition Disposition: Home, Self Care What to do if you have Problems For any increased pain, shortness of breath, bleeding, nausea or vomiting, chestpain, or any unexpected problems, contact your Primary Care Provider. Call [facility] ([phone]) or report to the closest Emergency Room. Call 911 if necessary. 04/18/25 1103 <Electronically signed by Kendrick Page MD> Cosigner Signature (if applicable): CC: Dr. Moustapha Gtz MD ~ Signed [facility] Work Phone: Evaluation note* Diagnosis Acute cough- Primary Nasal congestion Other diseases of nasal cavity and sinuses Wheezing Suspected COVID-19 virus infection documented in this encounter [facility] note* Diagnosis Diarrhea, unspecified type- Primary documented in this encounter [facility] note* Diagnosis Acute otitis externa of left ear, unspecified type- Primary documented in this encounter [facility] note* Diagnosis Loose stools- Primary Abnormal feces documented in this encounter [facility] note* Diagnosis Pharyngitis, unspecified etiology- Primary Viral illness Unspecified viral infection, in conditions classified elsewhere and of unspecified site documented in this encounter [facility] noteNo assessment information availableWJ.W. 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 tract infection- Primary Other diseases of respiratory system, not elsewhere classified [facility] Additional Instructions Please continue to follow-up outpatient with behavioral health and your psychiatrist. Return if you have a progression worsening your symptoms or further concerns.[facility] Work Phone: Hospital Discharge instructionsAdditional Instructions Recommend contacting your psychiatrist to discuss other options since you are declining to anxiolytic medication and did not take medicine you were prescribed by your psychiatristWJ.W. [facility] Work Phone: Reason for referral (narrative)* Outpatient Procedure (Routine) - New Request Specialty Diagnoses / Procedures Referred By [facility] Diagnoses Tachycardia Procedures ECG COMPLETE ECG ROUTINE ECG W/LEAST 12 LDS W/I&R Daryn Gtz MD [address] [place] [address] [facility] [place] [address] [place] [address] Referral ID Status Reason Start Date Expiration Date Visits Requested Visits Authorized [id number] New Request Auto-Generat ed Referral 05/11/2024 05/11/2025 1 1 [facility] for referral (narrative)* Outpatient Procedure (Routine) - Authorized Specialty Diagnoses / Procedures [facility] Diagnoses Intermittent asthma without complication, unspecified asthma severity Procedures SPIROMETRY - BASELINE AND POST DILATOR BRNCDILAT RSPSE SPMTRY PRE&POST-BRNCDILAT ADMN Daryn tGz MD [address] [place] [address] Res[facility] [place] [address] [place] [address] Referral ID Status Reason Start Date Expiration Date Visits Requested Visits Authorized [id number] Authorized Auto-Generat ed Referral 06/26/2024 07/26/2025 1 1 [facility] for referral (narrative)No reason for referral information availableWJ.W. [facility] Work Phone: Health Concerns Infection Onset [...] No August 14 023 6:22pm Power of Supervisor Purification No August 14, 2023 6:22pm Advance Directive Response Recorded Date/ Time Advance Directives No September 10, 2016 6:15am Living Will No September 06 4:11pm Power of Supervisor Purification No September 06, 2023 4:11pm Advance Directive Response Recorded Date/ Time Advance Directives No September 10, 2016 7:15am Living Will No January 10, 2024 7:57pm Power of Supervisor Purification No January 09 7:57pm Advance Directive Response Recorded Date/ Time Living Will No January 11, 2025 6:50pm Do you have a Healthcare Power of Supervisor Purification? No January 11, 2025 6:50pm Living Will No November 05 6:05pm Do you have a Healthcare Power of Supervisor Purification? No November 05, 2024 6:05pm Advance Directives No September 10, 2016 7:15am Advance Directive Response Recorded Date/ Time Living Will No January 11, 2025 6:50pm Do you have a Healthcare Power of Supervisor Purification? No January 11, 2025 6:50pm Do you have a Healthcare Power of Supervisor Purification? No March 16, 2025 10:49pm Advance Directives No September 10, 2016 7:15am Advance Directive Response Recorded Date/ Time Living Will No January 11, 2025 6:50pm Do you have a Healthcare Power of Supervisor Purification? No January 11, 2025 6:50pm Do you have a Healthcare Power of Supervisor Purification? No March 16, 2025 10:49pm Do you have a Healthcare Power of Supervisor Purification? No April 18, 2025 10:07am Advance Directives No September 10, 2016 7:15am Advance Directive Response Recorded Date/ Time Do you have a Healthcare Power of Supervisor Purification? No March 16, 2025 10:49pm Do you have a Healthcare Power of Supervisor Purification? No April 18, 2025 10:07am Do you have a Healthcare Power of Supervisor Purification? No June 16, 2025 9:46pm Advance Directives [...] or prosecute any alcohol or drug abuse patient.[facility] HospitalIn the event this information is protected by the Federal Confidentiality of Alcohol and Drug Abuse Patient Records regulations: The Federal rules restrict any use of the information to criminally investigate or prosecute any alcohol or drug abuse patient.[facility] HospitalIn the event this information is protected by the Federal Confidentiality of Alcohol and Drug Abuse Patient Records regulations: The Federal rules restrict any use of the information to criminally investigate or prosecute any alcohol or drug abuse patient.[facility] HospitalIn the event this information is protected by the Federal Confidentiality of Alcohol and Drug Abuse Patient Records regulations: The Federal rules restrict any use of the information to criminally investigate or prosecute any alcohol or drug abuse patient.[facility] HospitalIn the event this information is protected by the Federal Confidentiality of Alcohol and Drug Abuse Patient Records regulations: The Federal rules restrict any use of the information to criminally investigate or prosecute any alcohol or drug abuse patient.[facility] [facility] the event this information is protected by the Federal Confidentiality of Alcohol and Drug Abuse Patient Records regulations: The Federal rules restrict any use of the information to criminally investigate or prosecute any alcohol or drug abuse patient.[facility] the event this information is protected by the Federal Confidentiality of Alcohol and Drug Abuse Patient Records regulations: The Federal rules restrict any use of the information to criminally investigate or prosecute any alcohol or drug abuse patient.[facility] the event this information is protected by the Federal Confidentiality of Alcohol and Drug Abuse Patient Records regulations: The Federal rules restrict any use of the information to criminally investigate or prosecute any alcohol or drug abuse patient.[facility] HospitalIn the event this information is protected by the Federal Confidentiality of Alcohol and Drug Abuse Patient Records regulations: The Federal rules restrict any use of the information to criminally investigate or prosecute any alcohol or drug abuse patient.[facility] HospitalIn the event this information is protected by the Federal Confidentiality of Alcohol and Drug Abuse Patient Records regulations: The Federal rules restrict any use of the information to criminally investigate or prosecute any alcohol or drug abuse patient.[facility] HospitalIn the event this information is protected by the Federal Confidentiality of Alcohol and Drug Abuse Patient Records regulations: The Federal rules restrict any use of the information to criminally investigate or prosecute any alcohol or drug abuse patient.[facility] Reason for Visit (unrecogniz ed section [...] Dr. Samson Ruvalcaba DO Emergency Provider Active Air Brake Adjuster Relationship Specialty Start Date End Date Daryn Gtz MD [address], [place] [id number] PCP - General Family Medicine 06/26/24 Air Brake Adjuster Relationship Specialty Start Date End Date Daryn Gtz MD [address], [place] [id number] PCP - General Family Medicine 06/26/24 Air Brake Adjuster Relationship Specialty Start Date End Date Daryn Gtz MD [address] [facility] [place], [place] [id number] PCP - General Family Medicine 06/26/24 Team [...] section and content) DATE CREATED AUTHOR 06/19/2025 [facility] DATE CREATED AUTHOR AUTHOR'S JEANNIEIZ ATION 06/25/2025 [facility] FOR RECORDS PERTAINING TO PATIENTS WHO ARE [...] BE BASED ON THE PRIMARY CLINICAL RECORDS. [facility] [employer] [facility]. provides no warranty or guarantee of the accuracy or completeness of information in this document.
[2025-08-24 22:22] VITALS: BP 101/69; PULSE 72; RESP 18; TEMP 37.1; O2SAT 100
--- NOTE | 2025-08-24 22:28 | ED.VIS.DYS ---
HPI History of Present Illness Chief Complaint: Shortness of Breath Informant: patient Onset/Context/Timing Onset: Days (5-6) Context: gradual Timing: Continuous Quality: Positive for - (Upper respiratory congestion) Worsened by: Nothing Relieved by: - (Eating spicy food) Associated Symptoms cough, sore throat and yellow sputum; Negative for rhinorrhea, post nasal drip, ear pain, fever, chills, sweats, clear sputum, white sputum or green sputum Chest Pain: Positive for None Narrative Narrative: Patient presents with shortness of breath that has been getting worse over the past 5 or 6 days. Patient has gradually gotten worse. Patient states she feels congested. Patient admits to a sore throat. Patient states she tried eating spicy food to help with his nasal congestion. Patient states nothing makes it worse. Patient states he is coughing up some yellow sputum. Patient denies any rhinorrhea. Patient denies any fevers or chills. Patient denies any chest pain. PE Risk Factors: Negative for Cancer, OCP + Smoking + > 35, Prior DVT or PE, Recent immobilization or Recent surgery [facility] Medical History Anxiety Tobacco abuse Asthma Home Medications ?Medication ?Instructions ?Recorded ?Last Taken ?Type buspirone 7.5 mg tablet 7.5 mg PO BID 04/18/25 Unknown History alprazolam 0.25 mg tablet 0.25 mg PO DAILY PRN anxiety 06/16/25 Unknown History albuterol sulfate 90 mcg/actuation 1 - 2 puff inhalation Q4H PRN PRN 08/25/25 Unknown Rx aerosol inhaler (Ventolin HFA) Wheezing ##1 Allergy/AdvReac Type Severity Reaction Status Date / Time cat dander (cats) Allergy Intermediate Inflammation Verified 08/24/25 20:24 of lung egg Allergy Rash Verified 08/24/25 20:24 Penicillins Allergy Rash Verified 08/24/25 20:24 Family History Father Heart disease Social History household members: significant other housing: apartment Smoking Status: Current every day smoker tobacco type: cigarettes ROS ROS ED Constitutional Constitutional ED: Denies chills or fever(s) Eyes Eyes: Denies blurry vision or change in vision ENT ENT ED: Reports sore throat; Denies rhinorrhea Cardiovascular Cardiovascular: Denies chest pain or palpitations Respiratory/Chest Respiratory/Chest: Reports cough and dyspnea Gastrointestinal Gastrointestinal: Denies nausea or vomiting Genitourinary Genitourinary ED: Denies dysuria or hematuria Musculoskeletal Musculoskeletal: Denies back pain or neck pain Integumentary Denies abscess or rash Neurologic Neurologic: Denies headache(s) or weakness Allergic/Immunologic Allergic/Immunologic ED: Denies mouth swelling or urticaria EXAM Physical Exam Const Vital Signs: 08/24/25 20:24 08/24/25 21:26 08/24/25 22:22 Temperature 97.3 F L 98.8 F Temperature Source Temporal Oral Pulse Rate 82 72 Respiratory Rate 18 18 Respiratory Effort Normal Respiratory Depth Normal Respiratory Pattern Normal Blood Pressure 123/86 H 101/69 Blood Pressure Mean 98 79 Pulse Ox 99 100 Oxygen Delivery Method Room Air Room Air Room Air 08/24/25 22:36 Temperature Temperature Source Pulse Rate 93 Respiratory Rate 14 Respiratory Effort Respiratory Depth Respiratory Pattern Normal Blood Pressure Blood Pressure Mean Pulse Ox Oxygen Delivery Method Positive well nourished and well developed General Appearance ED: well developed and NAD HEENT Reports moist mucous membranes atraumatic Neck supple, no meningeal signs and no JVD Resp normal respiratory effort and clear to auscultation bilaterally Cardio regular rate and regular rhythm GI non-tender and non-distended Palpation: soft Extremity normal to inspection General Extremety ED: Negative for edema or tenderness General Extremity: Negative for edema Neuro oriented x3, CN's II-XII intact bilaterally and no sensory deficits noted Kenney Coma Scale: document GCS findings Spontaneous Obeys Commands Oriented 15 Sensorium / Orientation: alert Speech: speech normal Gait (Neuro): normal gait Motor Exam: strength 5/5 throughout Psych mental status grossly normal MDM MDM MDM Narrative Medical decision making narrative: Differential diagnosis includes viral upper respiratory infection, pneumonia, bronchitis, and anxiety. Chest x-ray will be obtained to assess for pneumonia or bronchitis. COVID-19, influenza, RSV PCR will be obtained to assess for viral illness. History & Record Review Additional record(s) reviewed:: Prior ED visit Lab Data Attestation: I reviewed the patient's lab results. Lab results narrative: COVID-19 PCR was reviewed and was negative. Influenza PCR was reviewed and was negative for influenza A and influenza B. RSV PCR was reviewed and was negative. Radiography Chest X-Ray - ED: 2 View, Read by ED Physician, Read by Radiologist and No Acute Disease Diagnostic Testing: Clinical Impression(s) from Imaging Studies Chest X-Ray 08/24/25 23:04 IMPRESSION: NO ACUTE FINDINGS. Reading Location: [address] [place] and lateral chest x-ray was obtained. There are 2 views. On my independent interpretation, lung freeman are clear. There is normal cardiac silhouette. Bony thorax is normal. There is no acute process noted. Radiologist also interpreted the x-ray and agrees. Treatment and Re-Evaluation :: Patient was given a DuoNeb aerosol here. Patient was advised of his findings. Patient was instructed to follow-up with his primary care physician in 5 to 7 days. Patient was given an albuterol inhaler. Patient was instructed to return if worse in any way. Patient understood and was agreeable with the plan. All questions were answered. Discharge Plan Triage Chief Complaint: Shortness of Breath ED Provider: David Lomax Dx/Rx/DC Orders Clinical Impression: URI (upper respiratory infection), Tobacco abuse Instructions: ED URI, Viral, No Abx (Adult) Prescriptions: New albuterol sulfate [Ventolin HFA] 90 mcg/actuation HFA aerosol inhaler 1 - 2 puff inhalation Q4H PRN PRN (Reason: Wheezing) Qty: 1 0RF No Action buspirone 7.5 mg tablet 7.5 mg PO BID alprazolam 0.25 mg tablet 0.25 mg PO DAILY PRN (Reason: anxiety) Stand Alone Forms: ED Work / School Excuse Primary Care Provider: Moustapha Gtz Referrals: Moustapha Gtz MD [Primary Care Provider, Family Practice] - 5-7 Days Print Language: Uzbek Disposition Disposition: Home, Self Care
[2025-08-24 22:36] VITALS: PULSE 93; RESP 14
--- NOTE | 2025-08-24 23:04 | RAD_ITS ---
PROCEDURE: CHEST PA AND LATERAL 08/24/2025 REASON FOR EXAM: COUGH TECHNIQUE: Procedure Code: RADCXR Modality: DX Procedure: CHEST PA AND LATERAL COMPARISON: 08/21/2025. FINDINGS: The heart is normal in size. The lungs are clear. No acute osseous abnormalities. RAD/Chest PA and Lateral IMPRESSION: NO ACUTE FINDINGS. Reading Location: [id number]
== END 2025-08-25 00:30 | disposition home or self-care (01) ==
PROVIDERS: Emergency Provider Emergency Medicine; PCP Family Medicine; Visit Provider Emergency Medicine
DX: J06.9 Acute upper respiratory infection, unspecified (principal); F17.210 Nicotine dependence, cigarettes, uncomplicated
CPT/HCPCS: 71046; 87631; 94640; 99282